=== PATIENT | female | born 1945 | race Caucasian/White ===

== ENCOUNTER 2017-05-24 10:00 | Outpatient (CLI) | payer MEDICARE, SELFPAY ==
[2017-05-24 11:20] VITALS: BMI 32.9
[2017-05-24 11:52] VITALS: BP 134/65; PULSE 94; RESP 18; TEMP 36.6; O2SAT 94
[2017-05-24 12:22] VITALS: BP 131/61; PULSE 92; RESP 20; O2SAT 95
[2017-05-24 12:52] VITALS: BP 130/66; PULSE 92; RESP 20; TEMP 36.4; O2SAT 95
[2017-05-24 13:15] VITALS: BP 134/62; PULSE 90; RESP 20; TEMP 36.5; O2SAT 94
[2017-05-24 18:03] VITALS: BMI 32.9
== END 2017-05-24 13:20 | disposition home or self-care (01) ==
LOC: INF 13:17
PROVIDERS: Visit Provider Internal Medicine
DX: D80.3 Selective deficiency of immunoglobulin G [IgG] subclasses (principal)
CPT/HCPCS: 96365; 96366; J1459

== ENCOUNTER 2017-06-06 03:56 | Observation (INO) | payer MEDICARE, SELFPAY ==
[2017-06-06] VITALS (8 sets, daily range): BP systolic 108–141; BP diastolic 59–88; PULSE 75–110; RESP 14–26; TEMP 36.8–37.4; O2SAT 91–98; BMI 36.6; BMI 33.3
[2017-06-06 04:41] LABS: Basophils % 0.2 % (0.1-2.0); Eosinophils # 0.2 K/mm3 (0.0-0.4); Eosinophils % 1.3 % (0.1-12.0); Hematocrit 33.2 % (37.0-47.0); Hemoglobin 10.7 g/dL (12.2-16.2); Lymphocytes # 1.2 K/mm3 (0.7-4.5); Mean Corpuscular HGB Conc 32.2 g/dL (31.8-35.4); Mean Corpuscular Hemoglobin 28.6 pg (27.0-31.2); Mean Corpuscular Volume 88.9 fl (81-99); Mean Platelet Volume 6.6 fl (7.4-10.4); Monocytes # 0.6 K/mm3 (0.1-1.0); Monocytes % 4.2 % (1.7-9.3); Neutrophils # 11.3 K/mm3 (1.8-7.8); Neutrophils % 85.3 % (37.0-80.0); Platelet Count 180 K/mm3 (142-424); Red Blood Count 3.73 M/mm3 (4.20-5.40); Red Cell Distribution Width 14.2 % (11.5-17.5); White Blood Count 13.3 K/mm3 (4.8-10.8)
[2017-06-06 04:48] LABS: MANUAL DIFFERENTIAL MANUAL DIFFERENTIAL (MANUAL DIFF)
[2017-06-06 04:52] LABS: Alanine Aminotransferase 30 U/L (12-78); Albumin Level 3.3 gm/dL (3.4-5.0); Albumin/Globulin Ratio 0.9 (1.1-1.8); Alkaline Phosphatase 71 U/L (46-116); Anion Gap 5.4 mEq/L (5-15); Aspartate Amino Transferase 23 U/L (15-37); Bilirubin,Total 0.4 mg/dL (0.2-1.0); Blood Urea Nitrogen 15 mg/dL (7-18); Calcium 8.8 mg/dL (8.5-10.1); Carbon Dioxide 35 mmol/L (21.0-32.0); Chloride 99 mmol/L (98-107); Creatinine Clearance Estimated 75 mL/min (0-300); Creatinine,Serum 1.12 mg/dL (0.55-1.02); Estimated Glomerular Filt Rate 48 ml/min (>60); GFR (African American) 58 ML/MIN (>60); Globulin 3.6 gm/dl (1.3-3.2); Glucose 138 mg/dL (74-106); Potassium 3.4 mmoL/L (3.5-5.1); Sodium 136 mmol/L (136-145); Total Protein,Serum 6.9 gm/dL (6.4-8.2)
--- NOTE | 2017-06-06 05:25 | HMH.EDNVD ---
ED Disposition Clinical Impression: Gastroenteritis Disposition: Home, Self-Care Condition on Discharge: Good Instructions: DI for Diarrhea and Traveler's Diarrhea -- Adult Additional Instructions: fluids and see pcp for follow up Prescriptions: Ondansetron HCl [Zofran 4mg Tab] 4 mg PO TID #30 tab Referrals: Asad Ford MD [Primary Care Provider] - - Critical Care Critical Care Time: No Attestation: On 06/06/17, the high probability of a clinically significant, sudden or life threatening deterioration of the following system(s) required my full and direct attention, intervention and personal management. The time I documented below is in addition to time spent performing reported procedures but includes the following listed in this critical care notation. Medical Decision Making Vital Signs: 06/06/17 03:57 Temperature 99.4 F Temperature Source Oral Pulse Rate [Brachial] 110 H Respiratory Rate 26 H Blood Pressure [Right Arm] 131/88 Blood Pressure Mean [Right Arm] 102 Blood Pressure Source [Right Arm] Automatic Cuff Blood Pressure Position [Right Arm] Supine 02 Sat by Pulse Oximetry 91 L Oxygen Delivery Method Room Air - Lab Data Lab results reviewed: Yes: I reviewed the patient's lab results. Lab Results 06/06/17 04:25: WBC 13.3 H, RBC 3.73 L, Hgb 10.7 L, Hct 33.2 L, MCV 88.9, MCH 28.6, MCHC 32.2, RDW 14.2, Plt Count 180, MPV 6.6 L, Neut % (Auto) 85.3 H, Lymph % (Auto) 9.0 L, [place] % (Auto) 4.2, Eos % (Auto) 1.3, Baso % (Auto) 0.2, Neut # (Auto) 11.3 H, Lymph # (Auto) 1.2, [place] # (Auto) 0.6, Eos # (Auto) 0.2, Baso # (Auto) 0.0, Total Counted 100, Neutrophils % (Manual) 89 H, Lymphocytes % (Manual) 10, Monocytes % (Manual) 1 L, Platelet Estimate Normal, Anisocytosis 1+, Stomatocytes 1+ 06/06/17 04:25: Sodium 136, Potassium 3.4 L, Chloride 99, Carbon Dioxide 35 H, Anion Gap 5.4, BUN 15, Creatinine 1.12 H, Estimated Creat Clear 75, Estimated GFR 48 L, Est GFR ( Amer) 58 L, Glucose 138 H, Calcium 8.8, Total Bilirubin 0.4, AST 23, ALT 30, Alkaline Phosphatase 71, Total Protein 6.9, Albumin 3.3 L, Globulin 3.6 H, Albumin/Globulin Ratio 0.9 L 06/06/17 04:25: Influenza Type A Ag Negative, Influenza Type B Ag Negative 06/06/17 04:25: Amylase 23 L, Lipase 62 L Result diagrams: 06/06/17 04:25 06/06/17 04:25 Orders (Tests/Meds): ED MEDICATIONS Discontinued Medications Generic Name Dose Route Start Last Admin Trade Name Freq PRN Reason Stop Dose Admin Lactated Ringer's 0 ml 06/06/17 04:07 06/06/17 04:10 Lactated Ringer's 1000 Ml Bag IV 06/06/17 04:08 1,000 ml BOLUS ONE Administration Ondansetron HCl 4 mg 06/06/17 04:07 06/06/17 04:10 Zofran 4mg/2ml Vial IV 06/06/17 04:08 4 mg ONCE ONE Administration ORDERS Category Date Time Status CT abdomen pelvis wo con Stat Cat Scan 06/06/17 05:27 Taken Diarrhea Panel, PCR Stat Lab 06/06/17 05:28 Ordered - CT Data CT Scan: Abdomen, Pelvis Time Received: 06:[address] Reviewed: Yes: I have viewed the radiologist's interpretation Preliminary Findings: Normal/NAD - Physician Consults Physician Consulted: colleen Reason -: Pt condition - Julius Inquiry Pt receiving controlled substance: No Nausea/Vomiting/Diarrhea HPI - General Chief complaint: Nausea/Vomiting/Diarrhea Stated complaint: VOMITING Time Seen by Provider: 06/06/17 05:25 Mode of Arrival: EMS Source of Information: Patient, Relative, Medical Record Limitations: No Limitations Description of Symptoms (Recalled from ER Triage Doc. by RN): NOT FEELING WELL ALL DAY, N/V/D SINCE LAST NIGHT - History of Present Illness HPI Narrative: over the last day with vomiting and diarrhea with abd pain MD complaint: nausea, vomiting, diarrhea, abdominal pain Onset (ago): day(s) Location of pain: diffuse Severity: moderate Associated symptoms: loss of appetite - Related Data Home Medications Medication Instructions Recorded Confirmed Acetaminophen
--- NOTE | 2017-06-06 05:27 | CT_ITS ---
CT abdomen pelvis wo con CLINICAL INDICATION: Nausea and vomiting with abdominal pain ITS.REASON: abd pain ORDERING PHYSICIAN: Luis Hanson MD PATIENT AGE: 71 years COMPARISON: 08/06/2012 TECHNIQUE: Axial images obtained with sagittal and coronal reformats. PROCEDURE: Oral Contrast: None IV Contrast: None . FINDINGS: There is volume loss/consolidation medial aspect of the of the right middle lobe with air bronchograms. Mild atelectatic changes are present in the left lung base. The liver, spleen, adrenal glands, and pancreas are unremarkable. Gallbladder not visualized likely due to surgical removal. Please correlate with patient's history. No obstructing renal or ureteral calculi. Exophytic isodensity projects off the left kidney at 17 mm consistent with a renal cyst. Artifact is present from degenerated or of a neurostimulator device in the right lower quadrant. No intestinal obstruction or free air. There is diverticulosis of the sigmoid colon but no evidence of diverticulitis. No evidence of appendicitis. There are degenerative changes in the lumbar spine with lumbar scoliosis convex left. There is mild wedging of L3 chest developed since 08/08/2012. Prior laminectomy at L3-L4. Chronic posttraumatic changes left inferior pubic ramus. IMPRESSION: 1. No acute abdominal or pelvic finding. 2. Colonic diverticulosis without diverticulitis. 3. Right middle lobe consolidation/volume loss. 4. Mild wedging of L3 which is developed since the older exam of 08/08/2012
--- NOTE | 2017-06-06 05:28 | ED_ITS ---
ED Disposition Clinical Impression: Gastroenteritis Disposition: Home, Self-Care Condition on Discharge: Good Instructions: DI for Diarrhea and Traveler's Diarrhea -- Adult Additional Instructions: fluids and see pcp for follow up Prescriptions: Ondansetron HCl [Zofran 4mg Tab] 4 mg PO TID #30 tab Referrals: Asad Ford MD [Primary Care Provider] - - Critical Care Critical Care Time: No Attestation: On 06/06/17, the high probability of a clinically significant, sudden or life threatening deterioration of the following system(s) required my full and direct attention, intervention and personal management. The time I documented below is in addition to time spent performing reported procedures but includes the following listed in this critical care notation. Medical Decision Making Vital Signs: 06/06/17 03:57 Temperature 99.4 F Temperature Source Oral Pulse Rate [Brachial] 110 H Respiratory Rate 26 H Blood Pressure [Right Arm] 131/88 Blood Pressure Mean [Right Arm] 102 Blood Pressure Source [Right Arm] Automatic Cuff Blood Pressure Position [Right Arm] Supine 02 Sat by Pulse Oximetry 91 L Oxygen Delivery Method Room Air - Lab Data Lab results reviewed: Yes: I reviewed the patient's lab results. Lab Results 06/06/17 04:25: WBC 13.3 H, RBC 3.73 L, Hgb 10.7 L, Hct 33.2 L, MCV 88.9, MCH 28.6, MCHC 32.2, RDW 14.2, Plt Count 180, MPV 6.6 L, Neut % (Auto) 85.3 H, Lymph % (Auto) 9.0 L, [place] % (Auto) 4.2, Eos % (Auto) 1.3, Baso % (Auto) 0.2, Neut # (Auto) 11.3 H, Lymph # (Auto) 1.2, [place] # (Auto) 0.6, Eos # (Auto) 0.2, Baso # (Auto) 0.0, Total Counted 100, Neutrophils % (Manual) 89 H, Lymphocytes % (Manual) 10, Monocytes % (Manual) 1 L, Platelet Estimate Normal, Anisocytosis 1+, Stomatocytes 1+ 06/06/17 04:25: Sodium 136, Potassium 3.4 L, Chloride 99, Carbon Dioxide 35 H, Anion Gap 5.4, BUN 15, Creatinine 1.12 H, Estimated Creat Clear 75, Estimated GFR 48 L, Est GFR ( Amer) 58 L, Glucose 138 H, Calcium 8.8, Total Bilirubin 0.4, AST 23, ALT 30, Alkaline Phosphatase 71, Total Protein 6.9, Albumin 3.3 L, Globulin 3.6 H, Albumin/Globulin Ratio 0.9 L 06/06/17 04:25: Influenza Type A Ag Negative, Influenza Type B Ag Negative 06/06/17 04:25: Amylase 23 L, Lipase 62 L Result diagrams: 06/06/17 04:25 06/06/17 04:25 Orders (Tests/Meds): ED MEDICATIONS Discontinued Medications Generic Name Dose Route Start Last Admin Trade Name Freq PRN Reason Stop Dose Admin Lactated Ringer's 0 ml 06/06/17 04:07 06/06/17 04:10 Lactated Ringer's 1000 Ml Bag IV 06/06/17 04:08 1,000 ml BOLUS ONE Administration Ondansetron HCl 4 mg 06/06/17 04:07 06/06/17 04:10 Zofran 4mg/2ml Vial IV 06/06/17 04:08 4 mg ONCE ONE Administration ORDERS Category Date Time Status CT abdomen pelvis wo con Stat Cat Scan 06/06/17 05:27 Taken Diarrhea Panel, PCR Stat Lab 06/06/17 05:28 Ordered - CT Data CT Scan: Abdomen, Pelvis Time Received: 06:[address] Reviewed: Yes: I have viewed the radiologist's interpretation Preliminary Findings: Normal/NAD - Physician Consults Physician Consulted: colleen Reason -: Pt condition - Julius Inquiry Pt receiving controlled substance: No Nausea/Vomiting/Diarrhea HPI - General Chief complaint: Nausea/Vomiting/Diarrhea Stated complaint: VOMITING
--- NOTE | 2017-06-06 05:45 | PC.NURSE ---
pt to ct
[2017-06-06 05:55] LABS: Amylase 23 U/L (25-125); Anisocytosis 1+; Lipase 62 u/L (73-393); Lymphocytes % 10 % (10-50); Monocytes % 1 % (2-9); Neutrophils % 89 % (42-76); Platelet Estimate Normal; Stomatocytes 1+; Total Cells Counted 100
--- NOTE | 2017-06-06 07:11 | PC.NURSE ---
dr dillon called dr macias, he preferred to treat pt on out pt basis.
--- NOTE | 2017-06-06 09:58 | HMH.HP ---
*Admission Date: 06/06/17 *Chief complaint: vomiting and diarrhea *History of present illness: 71 year old female with chronic lung disease presented to the ER early this a.m. with vomiting and diarrhea that began yesterday. Patient does not recall how many times she vomited or had diarrhea. Vomiting had resolved by the time she came to the ER. Patient was given IV LR and CT scan was performed of abdomen which was unremarkable. While in ED patient developed a fever and decision was made to admit for IV fluids. [facility] History I have reviewed the patient's past medical history: Yes Medical History: Reports:: Chronic Obstructive Pulmonary Disease (COPD), Gastroesophageal Reflux Disease, Hypertension, MRSA Other Medical History: Reports: Anemia Comment: Chronic Pain, Ig G subclass deficiency - *Social History Alcohol Intake: never - Psychiatric History Expresses thoughts of harming self/others: None Suicide Plan Description: No Plan Pschychiatric History:: Reports:: Anxiety *Family Hx:: Non-contributory Review of Systems - Review of Systems Review of systems:: pertinent systems reviewed and negative unless documented below see HPI - *Neurologic Denies tingling/numbness/burning sensations, Denies seizure-like activity Meds Home Medications Medication Instructions Recorded Confirmed Type Acetaminophen 325 mg PO NEEDED PRN 05/24/17 06/06/17 History Albuterol Sulfate [Albuterol 2.5 mg IH Q6HP PRN 05/24/17 06/06/17 History 0.083% 2.5mg/3mL neb] Albuterol Sulfate [Proair Hfa 2 puffs IH Q4HP PRN 05/24/17 06/06/17 History 90mcg/puff Inh] Aspirin [Aspirin 81mg EC Tab] 81 mg PO DAILY 05/24/17 06/06/17 History Azelastine/Fluticasone [Dymista 1 spray NS BID 05/24/17 06/06/17 History Nasal [place]] Bacillus Coagulans [Probiotic] 1 each PO DAILY 05/24/17 06/06/17 History Budesonide/Formoterol Fumarate 2 puffs IH BID 05/24/17 06/06/17 History [Symbicort 160-4.5 Mcg Inhaler] Bumetanide 2 mg PO DAILYP PRN 05/24/17 06/06/17 History Buspirone HCl [Buspar 10mg tablet] 10 mg PO BIDP PRN 05/24/17 06/06/17 History Cholecalciferol (Vitamin D3) 400 unit PO DAILY 05/24/17 06/06/17 History [Vitamin D3] Ferrous Sulfate [Iron] 325 mg PO DAILY 05/24/17 06/06/17 History Hydrocortisone 2.5 mg PO HS 05/24/17 06/06/17 History Hydrocortisone 5 mg PO DAILY 05/24/17 06/06/17 History Ipratropium [place] [Atrovent 0.5 mg IH BIDP PRN 05/24/17 06/06/17 History 0.5mg/2.5mL neb] Loratadine [Claritin] 10 mg PO DAILY 05/24/17 06/06/17 History Mirabegron [Myrbetriq] 50 mg PO DAILY 05/24/17 06/06/17 History Montelukast Sodium [Montelukast 10 mg PO HS 05/24/17 06/06/17 History 10mg Tab] Multivitamin [Multivitamins] 1 each PO DAILY 05/24/17 06/06/17 History Ondansetron HCl [Ondansetron 8mg 8 mg PO Q8HP PRN 05/24/17 06/06/17 History Tab] Pantoprazole Sodium [Protonix 40mg 40 mg PO DAILY 05/24/17 06/06/17 History tablet] [place] HCl [Salagen] 7.5 mg PO TIDP PRN 05/24/17 06/06/17 History Polyethylene Glycol 3350 [Miralax 17 gm PO DAILYP PRN 05/24/17 06/06/17 History 17gm Packet] Pregabalin [Pregabalin 25mg 25 mg PO BID 05/24/17 06/06/17 History Capsule] Sertraline HCl [Zoloft] 100 mg PO DAILY 05/24/17 06/06/17 History Tiotropium [place] [Spiriva 1 puff INHALATION DAILY 05/24/17 06/06/17 History 18mcg/puff inhaler] Trazodone HCl 100 mg PO HS 05/24/17 06/06/17 History Allergies Allergy/AdvReac Type Severity Reaction Status Date / Time hydrocodone [HYDROCODONE] Allergy Severe dizziness, Verified 06/06/17 04:32 n/v metoclopramide [From REGLAN] Allergy Severe Swelling Verified 06/06/17 04:32 of Lip/Tongue/Throat codeine [CODEINE] Allergy Intermediate dizziness. Verified 06/06/17 04:32 n/v Sulfa (Sulfonamide AdvReac Mild n/v Verified 06/06/17 04:32 Antibiotics) [SULFA (SULFONAMIDE ANTIBIOTICS)] Exam Vital signs and Labs for Last 24 Hours: Temp Pulse Resp BP
--- NOTE | 2017-06-06 10:01 | P.HP_ITS ---
*Admission Date: 06/06/17 *Chief complaint: vomiting and diarrhea *History of present illness: 71 year old female with chronic lung disease presented to the ER early this a.m. with vomiting and diarrhea that began yesterday. Patient does not recall how many times she vomited or had diarrhea. Vomiting had resolved by the time she came to the ER. Patient was given IV LR and CT scan was performed of abdomen which was unremarkable. While in ED patient developed a fever and decision was made to admit for IV fluids. [facility] History I have reviewed the patient's past medical history: Yes Medical History: Reports:: Chronic Obstructive Pulmonary Disease (COPD), Gastroesophageal Reflux Disease, Hypertension, MRSA Other Medical History: Reports: Anemia Comment: Chronic Pain, Ig G subclass deficiency - *Social History Alcohol Intake: never - Psychiatric History Expresses thoughts of harming self/others: None Suicide Plan Description: No Plan Pschychiatric History:: Reports:: Anxiety *Family Hx:: Non-contributory Review of Systems - Review of Systems Review of systems:: pertinent systems reviewed and negative unless documented below see HPI - *Neurologic Denies tingling/numbness/burning sensations, Denies seizure-like activity Meds Home Medications Medication Instructions Recorded Confirmed Type Acetaminophen 325 mg PO NEEDED PRN 05/24/17 06/06/17 History Albuterol Sulfate [Albuterol 2.5 mg IH Q6HP PRN 05/24/17 06/06/17 History 0.083% 2.5mg/3mL neb] Albuterol Sulfate [Proair Hfa 2 puffs IH Q4HP PRN 05/24/17 06/06/17 History 90mcg/puff Inh] Aspirin [Aspirin 81mg EC Tab] 81 mg PO DAILY 05/24/17 06/06/17 History Azelastine/Fluticasone [Dymista 1 spray NS BID 05/24/17 06/06/17 History Nasal [place]] Bacillus Coagulans [Probiotic] 1 each PO DAILY 05/24/17 06/06/17 History Budesonide/Formoterol Fumarate 2 puffs IH BID 05/24/17 06/06/17 History [Symbicort 160-4.5 Mcg Inhaler] Bumetanide 2 mg PO DAILYP PRN 05/24/17 06/06/17 History Buspirone HCl [Buspar 10mg tablet] 10 mg PO BIDP PRN 05/24/17 06/06/17 History Cholecalciferol (Vitamin D3) 400 unit PO DAILY 05/24/17 06/06/17 History [Vitamin D3] Ferrous Sulfate [Iron] 325 mg PO DAILY 05/24/17 06/06/17 History Hydrocortisone 2.5 mg PO HS 05/24/17 06/06/17 History Hydrocortisone 5 mg PO DAILY 05/24/17 06/06/17 History Ipratropium [place] [Atrovent 0.5 mg IH BIDP PRN 05/24/17 06/06/17 History 0.5mg/2.5mL neb] Loratadine [Claritin] 10 mg PO DAILY 05/24/17 06/06/17 History Mirabegron [Myrbetriq] 50 mg PO DAILY 05/24/17 06/06/17 History Montelukast Sodium [Montelukast 10 mg PO HS 05/24/17 06/06/17 History 10mg Tab] Multivitamin [Multivitamins] 1 each PO DAILY 05/24/17 06/06/17 History Ondansetron HCl [Ondansetron 8mg 8 mg PO Q8HP PRN 05/24/17 06/06/17 History Tab] Pantoprazole Sodium [Protonix 40mg 40 mg PO DAILY 05/24/17 06/06/17 History tablet] [place]oc[place] HCl [Salagen] 7.5 mg PO TIDP PRN 05/24/17 06/06/17 History Polyethylene Glycol 3350 [Miralax 17 gm PO DAILYP PRN 05/24/17 06/06/17 History 17gm Packet] Pregabalin [Pregabalin 25mg 25 mg PO BID 05/24/17 06/06/17 History Capsule] Sertraline HCl [Zoloft] 100 mg PO DAILY 05/24/17 06/06/17 History Tiotropium [place] [Spiriva 1 puff INHALATION DAILY 05/24/17 06/06/17 History 18mcg/puff inhaler] Trazodone HCl 100 mg PO HS
--- NOTE | 2017-06-06 10:24 | HMH.PHAVTE ---
[facility] Pharmacy VTE Monitoring - Patient Demographics Admission date: 06/06/17 Report Date: 06/06/17 Time: 10:24 Allergies/Adverse Reactions: hydrocodone [HYDROCODONE] Allergy (Severe, Verified 06/06/17 04:32) dizziness, n/v metoclopramide [From REGLAN] Allergy (Severe, Verified 06/06/17 04:32) Swelling of Lip/Tongue/Throat codeine [CODEINE] Allergy (Intermediate, Verified 06/06/17 04:32) dizziness. n/v Sulfa (Sulfonamide Antibiotics) [SULFA (SULFONAMIDE ANTIBIOTICS)] Adverse Reaction (Mild, Verified 06/06/17 04:32) n/v Height: 1.65 m Weight: 99.79 kg Patient Problems: Current Active Problems Gastroenteritis (Acute) - VTE Risk Labs: VTE Related Lab Results Hgb 10.7 g/dL (12.2-16.2) L 06/06/17 04:25 Hct 33.2 % (37.0-47.0) L 06/06/17 04:25 Plt Count 180 K/mm3 (142-424) 06/06/17 04:25 BUN 15 mg/dL (7-18) 06/06/17 04:25 Creatinine 1.12 mg/dL (0.55-1.02) H 06/06/17 04:25 Estimated Creat Clear 75 mL/min (0-300) 06/06/17 04:25 Clinical Trial Participant: No - Prophylaxis Types of VTE Prophylaxis: TEDS Knee High
--- NOTE | 2017-06-06 12:08 | PC.NURSE ---
Family Elizabeth Alford notified that pt wants some personal belongings from home. Also asked to bring medications in for pt since she is in observation status. Education that if [facility] gave pt the medication from our supply due to insurance reasons she would be charged. Family states they will bring them in.
[2017-06-06 19:40] LABS: Adenovirus F 40/41, stool Not Detected (NotDetected); Astrovirus Not Detected (NotDetected); Campylobacter Not Detected (NotDetected); Clostridium Difficile A/B, PCR Not Detected (NotDetected); Cryptosporidium Not Detected (NotDetected); Cyclospora Cayetanesis Not Detected (NotDetected); Entamoeba histolytica Not Detected (NotDetected); Enteroaggregative E coli Not Detected (NotDetected); Enteropathogenic E coli Not Detected (NotDetected); Enterotoxigenic E coli Not Detected (NotDetected); Giardia lamblia Not Detected (NotDetected); Norovirus Not Detected (NotDetected); Plesimonas Shigalloides, PCR Not Detected (NotDetected); Rotavirus A Not Detected (NotDetected); Salmonella, PCR Not Detected (NotDetected); Sapovirus Not Detected (NotDetected); Shiga-like toxin E coli Not Detected (NotDetected); Shigella Enterovasive E coli Not Detected (NotDetected); Vibrio Cholerae Not Detected (NotDetected); Vibrio, PCR Not Detected (NotDetected); Yersinia Entercolitica, PCR Not Detected (NotDetected)
[2017-06-07 04:00] VITALS: BP 153/50; PULSE 85; RESP 20; TEMP 36.5; O2SAT 97
[2017-06-07 06:39] VITALS: PULSE 78; PULSE 79; O2SAT 96
[2017-06-07 07:00] LABS: Basophils % 0.3 % (0.1-2.0); Eosinophils # 0.1 K/mm3 (0.0-0.4); Hematocrit 29.2 % (37.0-47.0); Hemoglobin 9.4 g/dL (12.2-16.2); Lymphocytes # 0.8 K/mm3 (0.7-4.5); Lymphocytes % 15.3 K/mm3 (10-50); Mean Corpuscular HGB Conc 32.3 g/dL (31.8-35.4); Mean Corpuscular Hemoglobin 28.9 pg (27.0-31.2); Mean Corpuscular Volume 89.5 fl (81-99); Mean Platelet Volume 6.9 fl (7.4-10.4); Monocytes # 0.3 K/mm3 (0.1-1.0); Monocytes % 5.3 % (1.7-9.3); Neutrophils # 4.3 K/mm3 (1.8-7.8); Neutrophils % 78.1 % (37.0-80.0); Platelet Count 168 K/mm3 (142-424); Red Blood Count 3.27 M/mm3 (4.20-5.40); Red Cell Distribution Width 14.1 % (11.5-17.5); White Blood Count 5.5 K/mm3 (4.8-10.8)
--- NOTE | 2017-06-07 07:16 | HMH.DCSUM ---
General - General Admission date: 06/06/17 Discharge date: 06/07/17 HPI HPI: 71 year old female with chronic lung disease presented to the ER early this a.m. with vomiting and diarrhea that began yesterday. Patient does not recall how many times she vomited or had diarrhea. Vomiting had resolved by the time she came to the ER. Patient was given IV LR and CT scan was performed of abdomen which was unremarkable. While in ED patient developed a fever and decision was made to admit for IV fluids. Objective Vital signs: Temp Pulse Resp BP Pulse Ox 98.8 F 79 20 141/59 96 06/06/17 20:00 06/07/17 06:39 06/06/17 20:00 06/06/17 20:00 06/07/17 06:39 Hospital Course Hospital Course: Patient was admitted for observation and started on lactated Ringer's at 125 mL's per hour. She only had one additional loose stool which was tested with diarrhea PCR panel and was negative for any infection. On the evening of admission she was placed on full liquid diet which she tolerated without nausea or vomiting. When patient remained asymptomatic over the rest of her admission decision was made to discharge her to home. Patient will follow-up in the office on as-needed basis. Results Labs on day of discharge: Labs from last 24 hours 06/07/17 06/06/17 06:26 19:38 WBC 5.5 D RBC 3.27 L Hgb 9.4 L Hct 29.2 L MCV 89.5 MCH 28.9 MCHC 32.3 RDW 14.1 Plt Count 168 MPV 6.9 L Neut % (Auto) 78.1 Lymph % (Auto) 15.3 [place] % (Auto) 5.3 Eos % (Auto) 1.0 Baso % (Auto) 0.3 Neut # (Auto) 4.3 Lymph # (Auto) 0.8 [place] # (Auto) 0.3 Eos # (Auto) 0.1 Baso # (Auto) 0.0 Stl Aeromonas (PCR) Not detected Stl C. cayetanensis PCR Not detected Stool Rotavirus (PCR) Not detected Stl Adenov F 40/41 PCR Not detected Stool Astrovirus (PCR) Not detected Stool Cryptosporidium PCR Not detected Stl E.coli Shiga Tox PCR Not detected Stool E coli O157 PCR Not detected Stl Enterotoxigenic E PCR Not detected Stool EPEC (PCR) Not detected Stool EAEC (PCR) Not detected Stl E. histolytica PCR Not detected Stool Giardia Lamblia PCR Not detected Stool Sapovirus (PCR) Not detected Stl P. shigelloides PCR Not detected Stl Shigella/EIEC PCR Not detected St Y.enterocolitica PCR Not detected Stool Vibrio (PCR) Not detected Stl Vibrio cholerae PCR Not detected Stl Norovirus GI/GII PCR Not detected Campylobacter (PCR) Not detected C. difficile (PCR) Not detected Salmonella (PCR) Not detected DS: Diagnosis - Discharge Diagnosis (1) Gastroenteritis Status: Acute Meds Home Medications Medication Instructions Recorded Confirmed Type Acetaminophen 325 mg PO NEEDED PRN 05/24/17 06/06/17 History Albuterol Sulfate [Albuterol 2.5 mg IH Q6HP PRN 05/24/17 06/06/17 History 0.083% 2.5mg/3mL neb] Albuterol Sulfate [Proair Hfa 2 puffs IH Q4HP PRN 05/24/17 06/06/17 History 90mcg/puff Inh] Aspirin [Aspirin 81mg EC Tab] 81 mg PO DAILY 05/24/17 06/06/17 History Azelastine/Fluticasone [Dymista 1 spray NS BID 05/24/17 06/06/17 History Nasal [place]] Bacillus Coagulans [Probiotic] 1 each PO DAILY 05/24/17 06/06/17 History Budesonide/Formoterol Fumarate 2 puffs IH BID 05/24/17 06/06/17 History [Symbicort 160-4.5 Mcg Inhaler] Bumetanide 2 mg PO DAILYP PRN 05/24/17 06/06/17 History Buspirone HCl [Buspar 10mg tablet] 10 mg PO BIDP PRN 05/24/17 06/06/17 History Cholecalciferol (Vitamin D3) 400 unit PO DAILY 05/24/17 06/06/17 History [Vitamin D3] Ferrous Sulfate [Iron] 325 mg PO DAILY 05/24/17 06/06/17 History Hydrocortisone 2.5 mg PO HS 05/24/17 06/06/17 History Hydrocortisone 5 mg PO DAILY 05/24/17 06/06/17 History Ipratropium [place] [Atrovent 0.5 mg IH BIDP PRN 05/24/17 06/06/17 History 0.5mg/2.5mL neb] Loratadine [Claritin] 10 mg PO DAILY 05/24/17 06/06/17 History Mirabegron [Myrbetriq] 50 mg PO DAILY 05/24/17 06/06/17 History [place]
[2017-06-07 08:00] VITALS: O2SAT 95; O2SAT 98
== END 2017-06-07 11:17 | disposition home or self-care (01) ==
LOC: ER 07:19 → 2ND 11:23
PROVIDERS: Admitting Provider Family Medicine; Emergency Provider Emergency Medicine; PCP Family Medicine; Visit Provider Family Medicine
DX: K52.9 Noninfective gastroenteritis and colitis, unspecified (principal); J44.9 Chronic obstructive pulmonary disease, unspecified; K21.9 Gastro-esophageal reflux disease without esophagitis; I10 Essential (primary) hypertension; F41.9 Anxiety disorder, unspecified; Z79.82 Long term (current) use of aspirin; Z79.899 Other long term (current) drug therapy; Z88.5 Allergy status to narcotic agent; Z88.2 Allergy status to sulfonamides; Z88.8 Allergy status to other drugs, medicaments and biological substances; Z86.14 Personal history of Methicillin resistant Staphylococcus aureus infection
CPT/HCPCS: 36415; 74176; 80053; 82150; 83690; 85007; 85025; 87275; 87276; 87507; 94640; 94760; 94761; 96366; 99283; 99284; G0378; J2405

== ENCOUNTER 2017-07-18 10:30 | Outpatient (CLI) | payer MEDICARE, SELFPAY ==
[2017-07-18] VITALS (7 sets, daily range): BP systolic 108–114; BP diastolic 59–67; PULSE 84–90; RESP 20; TEMP 36.5; O2SAT 93–95
== END 2017-07-18 12:50 | disposition home or self-care (01) ==
LOC: INF 10:43
PROVIDERS: PCP Family Medicine; Visit Provider Internal Medicine
DX: D80.3 Selective deficiency of immunoglobulin G [IgG] subclasses (principal)
CPT/HCPCS: 96365; 96366; J1459; J1642

== ENCOUNTER 2017-08-23 10:15 | Outpatient (CLI) | payer MEDICARE, SELFPAY ==
[2017-08-23 10:55] VITALS: BP 147/88; PULSE 91; RESP 18; TEMP 36.6; O2SAT 96
[2017-08-23 11:25] VITALS: BP 123/61; PULSE 86; RESP 18; O2SAT 95
[2017-08-23 11:55] VITALS: BP 125/62; PULSE 81; RESP 18; O2SAT 95
[2017-08-23 12:25] VITALS: BP 123/62; PULSE 89; RESP 18; O2SAT 96
[2017-08-23 12:40] VITALS: BP 121/67; PULSE 69; RESP 18; O2SAT 96
== END 2017-08-23 12:45 | disposition home or self-care (01) ==
LOC: INF 12:08
PROVIDERS: PCP Family Medicine; Visit Provider Internal Medicine
DX: D80.3 Selective deficiency of immunoglobulin G [IgG] subclasses (principal)
CPT/HCPCS: 96365; 96366; J1459

== ENCOUNTER 2017-09-19 10:30 | Outpatient (CLI) | payer MEDICARE, SELFPAY ==
[2017-09-19 10:50] VITALS: BP 137/70; PULSE 86; RESP 18; TEMP 36.7; O2SAT 94
[2017-09-19 11:20] VITALS: BP 130/67; PULSE 84; RESP 18; O2SAT 96
[2017-09-19 11:50] VITALS: BP 131/69; PULSE 86; RESP 18; O2SAT 95
[2017-09-19 12:35] VITALS: BP 138/65; PULSE 83; RESP 18; O2SAT 94
== END 2017-09-19 12:40 | disposition home or self-care (01) ==
LOC: INF 11:05
PROVIDERS: PCP Family Medicine; Visit Provider Internal Medicine
DX: D80.3 Selective deficiency of immunoglobulin G [IgG] subclasses (principal)
CPT/HCPCS: 96365; 96366; J1459

== ENCOUNTER → 2017-10-15 13:00 | Outpatient (POV) | payer MEDICARE, SELFPAY | PROVIDERS: Visit Provider Internal Medicine | DX: Z00.00 Encounter for general adult medical examination without abnormal findings (principal) ==

== ENCOUNTER 2017-10-18 10:30 | Outpatient (CLI) | payer MEDICARE, SELFPAY ==
[2017-10-18 11:10] VITALS: BP 128/77; PULSE 68; RESP 20; TEMP 36.9; O2SAT 94
[2017-10-18 12:10] VITALS: BP 118/84; PULSE 68; RESP 20; TEMP 36.9; O2SAT 94
[2017-10-18 12:40] VITALS: BP 116/70; PULSE 66; RESP 20; TEMP 37.1; O2SAT 94
[2017-10-18 13:10] VITALS: BP 126/70; PULSE 68; RESP 20; TEMP 36.9; O2SAT 94
== END 2017-10-18 13:15 | disposition home or self-care (01) ==
LOC: INF 10:39
PROVIDERS: Visit Provider Internal Medicine
DX: D80.3 Selective deficiency of immunoglobulin G [IgG] subclasses (principal)
CPT/HCPCS: 96365; 96366; J1459

== ENCOUNTER 2017-11-21 12:55 | Outpatient (CLI) | payer MEDICARE, SELFPAY ==
[2017-11-21 13:20] VITALS: BP 122/67; PULSE 69; RESP 20; TEMP 36.8; O2SAT 95
[2017-11-21 13:50] VITALS: BP 117/58; PULSE 70; RESP 20; O2SAT 96
[2017-11-21 14:20] VITALS: BP 121/64; PULSE 68; RESP 20; O2SAT 95
[2017-11-21 14:50] VITALS: BP 119/61; PULSE 65; RESP 20; O2SAT 96
[2017-11-21 15:30] VITALS: BP 120/67; PULSE 67; RESP 20; O2SAT 96
== END 2017-11-21 15:30 | disposition home or self-care (01) ==
LOC: INF 13:24
PROVIDERS: Visit Provider Internal Medicine
DX: D80.3 Selective deficiency of immunoglobulin G [IgG] subclasses (principal)
CPT/HCPCS: 96365; 96366; J1459

== ENCOUNTER 2017-12-20 10:30 | Outpatient (CLI) | payer MEDICARE, SELFPAY ==
[2017-12-20] VITALS (8 sets, daily range): BP systolic 103–126; BP diastolic 46–79; PULSE 89–96; RESP 18; O2SAT 96
== END 2017-12-20 13:25 | disposition home or self-care (01) ==
LOC: INF 10:43
PROVIDERS: Visit Provider Internal Medicine
DX: D80.3 Selective deficiency of immunoglobulin G [IgG] subclasses (principal)
CPT/HCPCS: 96365; 96366; J1459

== ENCOUNTER 2018-01-16 13:59 | Outpatient (CLI) | payer MEDICARE, SELFPAY ==
[2018-01-16] VITALS (8 sets, daily range): BP systolic 115–133; BP diastolic 55–79; PULSE 85–100; RESP 18–20; TEMP 36.6–36.8; O2SAT 96–97
== END 2018-01-16 16:43 | disposition home or self-care (01) ==
LOC: INF 13:59
PROVIDERS: Visit Provider Internal Medicine
DX: D80.3 Selective deficiency of immunoglobulin G [IgG] subclasses (principal)
CPT/HCPCS: 96365; 96366; J1459

== ENCOUNTER 2018-02-19 09:55 | Outpatient (CLI) | payer MEDICARE, SELFPAY ==
[2018-02-19 10:40] VITALS: BP 110/52; PULSE 97; RESP 18; TEMP 36.8; O2SAT 96
[2018-02-19 11:10] VITALS: BP 108/55; PULSE 94; RESP 16
[2018-02-19 11:40] VITALS: BP 103/58; PULSE 91; RESP 18
[2018-02-19 12:10] VITALS: BP 116/62; PULSE 87; RESP 16
[2018-02-19 12:20] VITALS: BP 131/73; PULSE 98; RESP 18
== END 2018-02-19 12:45 | disposition home or self-care (01) ==
LOC: INF 09:58
PROVIDERS: PCP Family Medicine; Visit Provider Internal Medicine
DX: D80.3 Selective deficiency of immunoglobulin G [IgG] subclasses (principal)
CPT/HCPCS: 96365; J1459

== ENCOUNTER → 2018-02-25 13:11 | Outpatient (POV) | payer MEDICARE, SELFPAY | PROVIDERS: Visit Provider Internal Medicine | DX: Z00.00 Encounter for general adult medical examination without abnormal findings (principal) ==

== ENCOUNTER 2018-03-19 10:41 | Outpatient (CLI) | payer MEDICARE, SELFPAY ==
[2018-03-19 10:55] VITALS: BP 120/77; PULSE 100; RESP 20; TEMP 36.6; O2SAT 96
[2018-03-19 11:25] VITALS: BP 118/69; PULSE 101; RESP 20; O2SAT 96
[2018-03-19 11:55] VITALS: BP 121/64; PULSE 94; RESP 20; O2SAT 95
[2018-03-19 12:15] VITALS: BP 124/65; PULSE 89; RESP 20; O2SAT 96
== END 2018-03-19 12:15 | disposition home or self-care (01) ==
LOC: INF 10:41
PROVIDERS: Visit Provider Internal Medicine
DX: D80.3 Selective deficiency of immunoglobulin G [IgG] subclasses (principal)
CPT/HCPCS: 96365; J1459

== ENCOUNTER 2018-04-17 09:53 | Outpatient (CLI) | payer MEDICARE, SELFPAY ==
[2018-04-17 10:25] VITALS: BP 131/53; PULSE 103; RESP 18; TEMP 36.6; O2SAT 98
[2018-04-17 10:55] VITALS: BP 129/58; PULSE 99; RESP 18; O2SAT 97
[2018-04-17 11:25] VITALS: BP 133/59; PULSE 100; RESP 18; O2SAT 97
[2018-04-17 11:55] VITALS: BP 127/54; PULSE 101; RESP 18; O2SAT 96
[2018-04-17 12:10] VITALS: BP 130/59; PULSE 99; RESP 18; O2SAT 97
== END 2018-04-17 12:15 | disposition home or self-care (01) ==
LOC: INF 09:53
PROVIDERS: Visit Provider Internal Medicine
DX: D80.3 Selective deficiency of immunoglobulin G [IgG] subclasses (principal)
CPT/HCPCS: 96365; J1459

== ENCOUNTER 2018-05-15 10:18 | Outpatient (CLI) | payer MEDICARE, SELFPAY ==
[2018-05-15 11:30] VITALS: BP 119/58; PULSE 84; RESP 18; TEMP 36.4; O2SAT 98
[2018-05-15 12:00] VITALS: BP 122/59; PULSE 88; RESP 18; O2SAT 97
[2018-05-15 12:30] VITALS: BP 120/60; PULSE 81; RESP 18; O2SAT 97
[2018-05-15 13:00] VITALS: BP 118/56; PULSE 82; RESP 18; O2SAT 96
[2018-05-15 13:30] VITALS: BP 116/52; PULSE 84; RESP 18; O2SAT 97
== END 2018-05-15 13:30 | disposition home or self-care (01) ==
LOC: INF 10:18
PROVIDERS: Visit Provider Internal Medicine
DX: D80.3 Selective deficiency of immunoglobulin G [IgG] subclasses (principal)
CPT/HCPCS: 96365; J1459

== ENCOUNTER 2018-05-21 11:45 | Inpatient (IN) ==
[2018-05-21 12:52] LABS: Basophils % 0.2 % (0.1-2.0); Eosinophils # 0.1 K/mm3 (0.0-0.4); Eosinophils % 1.4 % (0.1-12.0); Hematocrit 30.9 % (37.0-47.0); Hemoglobin 10.1 g/dL (12.2-16.2); Lymphocytes # 0.6 K/mm3 (0.7-4.5); Lymphocytes % 8.7 % (10-50); Mean Corpuscular HGB Conc 32.5 g/dL (31.8-35.4); Mean Corpuscular Hemoglobin 29.3 pg (27.0-31.2); Mean Corpuscular Volume 90.2 fl (81-99); Mean Platelet Volume 6.8 fl (7.4-10.4); Monocytes # 0.4 K/mm3 (0.1-1.0); Neutrophils # 5.7 K/mm3 (1.8-7.8); Neutrophils % 83.7 % (37.0-80.0); Platelet Count 158 K/mm3 (142-424); Red Blood Count 3.43 M/mm3 (4.20-5.40); Red Cell Distribution Width 13.7 % (11.5-17.5); White Blood Count 6.9 K/mm3 (4.8-10.8)
[2018-05-21 12:54] LABS: Anion Gap 9.9 mEq/L (5-15); Calcium 8.4 mg/dL (8.5-10.1); Potassium 3.9 mmoL/L (3.5-5.1)
[2018-05-21 13:20] LABS: ABG Base Excess -0.5 mmol/L (-2.4-2.3); ABG HCO3 24.8 mmhg (22.0-26.0); ABG Oxygen Saturation 88 % (90-100); ABG PCO2 43.3 mmhg (35.0-45.0); ABG PH 7.38 mmol/L (7.35-7.45); ABG PO2 54.5 mmhg (80-100); ABG TCO2 26.1 mmhg (23-27)
[2018-05-21 13:21] LABS: Allen's Test ACCEPTABLE; Oxygen 3 LPM %
--- NOTE | 2018-05-21 14:09 | Pharmacy Consult Notes ---
[facility] Pharmacy VTE Monitoring - Patient Demographics Admission date: 05/21/18 Report Date: 05/21/18 Time: 14:09 Allergies/Adverse Reactions: Patient Allergies hydrocodone [HYDROCODONE] Allergy (Severe, Verified 03/30/18 01:49) dizziness, n/v metoclopramide [From REGLAN] Allergy (Severe, Verified 03/30/18 01:49) Swelling of Lip/Tongue/Throat codeine [CODEINE] Allergy (Intermediate, Verified 03/30/18 01:49) dizziness. n/v Sulfa (Sulfonamide Antibiotics) [SULFA (SULFONAMIDE ANTIBIOTICS)] Adverse Reaction (Mild, Verified 03/30/18 01:49) n/v Height: 1.65 m Weight: 88.025 kg - VTE Risk Labs: VTE Related Lab Results Hgb 10.1 g/dL (12.2-16.2) L 05/21/18 12:30 Hct 30.9 % (37.0-47.0) L 05/21/18 12:30 Plt Count 158 K/mm3 (142-424) 05/21/18 12:30 BUN 17 mg/dL (7-18) 05/21/18 12:30 Creatinine 1.27 mg/dL (0.55-1.02) H 05/21/18 12:30 Estimated Creat Clear 57 mL/min (50-200) 05/21/18 12:30 Was VTE Risk Assessment Performed: Yes VTE Score: 7 VTE Risk Level: Moderate Risk Clinical Trial Participant: No - Prophylaxis VTE Prophylaxis Ordered?: Yes Types of VTE Prophylaxis: TEDS Knee High
--- NOTE | 2018-05-21 14:24 | Pharmacy Consult Notes ---
- Pharmacy Consult Date: 05/21/18 Time: 14:18 Referring provider: DR. REID Reason for Consult:: VANCOMYCIN DOSING Allergies and ADEs:: Allergies Allergy/AdvReac Type Severity Reaction Status Date / Time hydrocodone [HYDROCODONE] Allergy Severe dizziness, Verified 03/30/18 01:49 n/v metoclopramide [From REGLAN] Allergy Severe Swelling Verified 03/30/18 01:49 of Lip/Tongue/Throat codeine [CODEINE] Allergy Intermediate dizziness. Verified 03/30/18 01:49 n/v Sulfa (Sulfonamide AdvReac Mild n/v Verified 03/30/18 01:49 Antibiotics) [SULFA (SULFONAMIDE ANTIBIOTICS)] Home Medications:: Home Medications Medication Instructions Recorded Confirmed Type Acetaminophen 325 mg PO NEEDED PRN 05/24/17 05/15/18 History Albuterol Sulfate [Albuterol 2.5 mg IH Q6HP PRN 05/24/17 05/15/18 History 0.083% 2.5mg/3mL neb] Albuterol Sulfate [Proair Hfa 2 puffs IH Q4HP PRN 05/24/17 05/15/18 History 90mcg/puff Inh] Aspirin [Aspirin 81mg EC Tab] 81 mg PO DAILY 05/24/17 05/15/18 History Azelastine/Fluticasone [Dymista 1 spray NS BID 05/24/17 05/15/18 History Nasal [place]] Bacillus Coagulans [Probiotic] 1 each PO DAILY 05/24/17 05/15/18 History Budesonide/Formoterol Fumarate 2 puffs IH BID 05/24/17 05/15/18 History [Symbicort 160-4.5 Mcg Inhaler] Bumetanide 2 mg PO DAILYP PRN 05/24/17 05/15/18 History Buspirone HCl [Buspar 10mg tablet] 10 mg PO BIDP PRN 05/24/17 05/15/18 History Cholecalciferol (Vitamin D3) 400 unit PO DAILY 05/24/17 05/15/18 History [Vitamin D3] Ferrous Sulfate [Iron] 325 mg PO DAILY 05/24/17 05/15/18 History Hydrocortisone 2.5 mg PO HS 05/24/17 05/15/18 History Hydrocortisone 5 mg PO DAILY 05/24/17 05/15/18 History Ipratropium [place] [Atrovent 0.5 mg IH BIDP PRN 05/24/17 05/15/18 History 0.5mg/2.5mL neb] Loratadine [Claritin] 10 mg PO DAILY 05/24/17 05/15/18 History Mirabegron [Myrbetriq] 50 mg PO DAILY 05/24/17 05/15/18 History Montelukast Sodium [Montelukast 10 mg PO HS 05/24/17 05/15/18 History 10mg Tab] Multivitamin [Multivitamins] 1 each PO DAILY 05/24/17 05/15/18 History Ondansetron HCl [Ondansetron 8mg 8 mg PO Q8HP PRN 05/24/17 05/15/18 History Tab] Pantoprazole Sodium [Protonix 40mg 40 mg PO DAILY 05/24/17 05/15/18 History tablet] Pilocarpine HCl [Salagen] 7.5 mg PO TIDP PRN 05/24/17 05/15/18 History Polyethylene Glycol 3350 [Miralax 17 gm PO DAILYP PRN 05/24/17 05/15/18 History 17gm Packet] Pregabalin [Pregabalin 25mg 25 mg PO BID 05/24/17 05/15/18 History Capsule] Sertraline HCl [Zoloft] 100 mg PO DAILY 05/24/17 05/15/18 History Tiotropium [place] [Spiriva 1 puff INHALATION DAILY 05/24/17 05/15/18 History 18mcg/puff inhaler] Trazodone HCl 100 mg PO HS 05/24/17 05/15/18 History Nitrofurantoin Monohyd/M-Cryst 100 mg PO BID 02/19/18 05/15/18 History [Macrobid 100 mg Capsule] Guaifenesin/Dextromethorphan 10 ml PO Q4HP PRN #200 liquid 03/30/18 05/15/18 Rx [Guaifenesin-Dm Solution] Doxycycline Hyclate [Doxycycline 100 mg PO Q12 04/17/18 05/15/18 History 100mg Capsule] Height: 1.65 m Weight: 88.025 kg Laboratory Results:: Laboratory Results - last 24 hr 05/21/18 12:29: Specimen Source L. radial, O2 % 3 lpm, ABG pH 7.38, ABG pCO2 43.3, ABG pO2 54.5 L, ABG HCO3 24.8, ABG Total CO2 26.1, ABG O2 Saturation 88 L, ABG Base Excess -0.5, Carlos Test Acceptable 05/21/18 12:30: WBC 6.9, RBC 3.43 L, Hgb 10.1 L, Hct 30.9 L, MCV 90.2, MCH 29.3, MCHC 32.5, RDW 13.7, Plt Count 158, MPV 6.8 L, Neut % (Auto) 83.7 H, Lymph % (Auto) 8.7 L, [place] % (Auto) 6.0, Eos % (Auto) 1.4, Baso % (Auto) 0.2, Neut # (Auto) 5.7, Lymph # (Auto) 0.6 L, [place] # (Auto) 0.4, Eos # (Auto) 0.1, Baso # (Auto) 0.0 05/21/18 12:30: Sodium 135 L, Potassium 3.9, Chloride 97 L, Carbon Dioxide 32, Anion Gap 9.9, BUN 17, Creatinine 1.27 H, Estimated Creat Clear 57, Estimated GFR 42 L, Est GFR ( Amer) 50 L, Glucose 107 H, Calcium 8.4 L Medical History: Reports:: Anxiety, Chronic Obstructive Pulmonary Disease (COPD), Gastroesophageal Reflux Disease(GERD), Hypertension Denies:: Cancer, Diabetes Mellitus Type 1, Diabetes Mellitus Type 2, MRSA Assessment and Plan - Assessment and plan all Dx Assessment and Plan for all problems:: BASED ON PATIENT FACTORS, RECOMMEND VANCOMYCIN 1500 MG IV Q24H. PHARMACY WILL FOLLOW DAILY AND ADJUST APPROPRIATE.
[2018-05-21 15:24] LABS: Coronavirus 229E Not Detected (NotDetected); Coronavirus NL63 Not Detected (NotDetected); Coronavirus OC43 Not Detected (NotDetected); Coronovirus HKU1,PCR Not Detected (NotDetected)
--- NOTE | 2018-05-22 07:13 | Progress Note ---
Internal Medicine - PN: Subj *Date: 05/22/18 *Time: 07:09 Interval history: Patient admitted yesterday afternoon with suspected pneumonia but turns out patient has RSV lower respiratory tract infection causing bronchiolitis and COPD exacerbation. This morning patient complains of shortness of breath. She received Ativan overnight for anxiety which did help alleviate some of her dyspnea. Nursing notes indicate patient believes she was hypoxic and when O2 sat was checked she was at 95%. Patient endorses a lot of chest congestion and feels like she cannot produce any large amounts of sputum. Exam Vital signs and Labs for Last 24 Hours: Temp Pulse Resp BP Pulse Ox 98.3 F 90 20 123/66 95 05/22/18 04:00 05/22/18 06:33 05/22/18 04:00 05/22/18 04:00 05/22/18 06:33 Laboratory Results - last 24 hr 05/21/18 12:29: Specimen Source L. radial, O2 % 3 lpm, ABG pH 7.38, ABG pCO2 43.3, ABG pO2 54.5 L, ABG HCO3 24.8, ABG Total CO2 26.1, ABG O2 Saturation 88 L, ABG Base Excess -0.5, Carlos Test Acceptable 05/21/18 12:30: WBC 6.9, RBC 3.43 L, Hgb 10.1 L, Hct 30.9 L, MCV 90.2, MCH 29.3, MCHC 32.5, RDW 13.7, Plt Count 158, MPV 6.8 L, Neut % (Auto) 83.7 H, Lymph % (Auto) 8.7 L, [place] % (Auto) 6.0, Eos % (Auto) 1.4, Baso % (Auto) 0.2, Neut # (Auto) 5.7, Lymph # (Auto) 0.6 L, [place] # (Auto) 0.4, Eos # (Auto) 0.1, Baso # (Auto) 0.0 05/21/18 12:30: Sodium 135 L, Potassium 3.9, Chloride 97 L, Carbon Dioxide 32, Anion Gap 9.9, BUN 17, Creatinine 1.27 H, Estimated Creat Clear 57, Estimated GFR 42 L, Est GFR ( Amer) 50 L, Glucose 107 H, Calcium 8.4 L 05/21/18 : Chlamy pneumoniae PCR Not detected, Adenovirus (PCR) Not detected, B. pertussis DNA (PCR) Not detected, Coronavirus OC43 (PCR) Not detected, Coronavirus HKU1 (PCR) Not detected, Coronavirus 229E (PCR) Not detected, Coronavirus NL63 (PCR) Not detected, Human Metapneumovir PCR Not detected, Influenza A (H1) PCR Not detected, Influ A (H1N1/09) PCR Not detected, Influenza A (H3) PCR Not detected, Influenza Type A (PCR) Not detected, Influenza Type B (PCR) Not detected, M. pneumoniae (PCR) Not detected, Parainfluenza 1 (PCR) Not detected, Parainfluenza 2 (PCR) Not detected, Parainfluenza 3 (PCR) Not detected , Parainfluenza 4 (PCR) Not detected, RSV (PCR) Detected A, Entero/Rhino (PCR) Not detected I & O for Last 24 hours: Intake & Output 05/19/18 05/20/18 05/21/18 05/22/18 11:59 11:59 11:59 11:59 Intake Total 240 / 240 Output Total 1250 / 1250 Balance -1010 / -1010 Weight 194 lb 5 oz Microbiology Reports for the Last 24 Hours: Microbiology 05/21/18 13:02 Sputum - Expectorated Sputum Gram Stain - Final Narrative: Patient appears anxious. She can be heard wheezing from several feet away. Oropharynx is dry. Neck is without lymphadenopathy. Lung exam reveals poor air movement. There are some faint expiratory wheezes heard in the upper lobes. Breath sounds are severely diminished in the lower lobe. Heart has a regular rate and rhythm Assessment and Plan (1) RSV bronchiolitis Current visit: Yes Status: Acute Category: Medical Code(s): J21.0 - Acute bronchiolitis due to respiratory syncytial virus (2) COPD exacerbation Current visit: Yes Status: Acute Category: Medical Code(s): J44.1 - Chronic obstructive pulmonary disease with (acute) exacerbation (3) Very severe chronic obstructive pulmonary disease Current visit: Yes Status: Acute Category: Medical Code(s): J44.9 - Chronic obstructive pulmonary disease, unspecified (4) Dependence on supplemental oxygen Current visit: Yes Status: Acute Category: Medical Code(s): Z99.81 - Dependence on supplemental oxygen - Assessment and plan all Dx Assessment and Plan for all problems:: 1. I did explain to the patient that recovery from her illness will take time and we will use steroids and breathing treatments along with mucolytic's to try to alleviate symptoms. 2. Out of bed to chair today 3. Ativan has been discontinued and I will give the patient a very low dose of alprazolam to aid with any anxiety symptoms
[2018-05-22 07:41] LABS: Basophils % 0.3 % (0.1-2.0); Eosinophils % 0.2 % (0.1-12.0); Hematocrit 32.8 % (37.0-47.0); Hemoglobin 10.6 g/dL (12.2-16.2); Lymphocytes # 0.5 K/mm3 (0.7-4.5); Lymphocytes % 11.9 % (10-50); Mean Corpuscular HGB Conc 32.4 g/dL (31.8-35.4); Mean Corpuscular Hemoglobin 29.8 pg (27.0-31.2); Mean Platelet Volume 6.5 fl (7.4-10.4); Monocytes # 0.1 K/mm3 (0.1-1.0); Monocytes % 3.4 % (1.7-9.3); Neutrophils # 3.6 K/mm3 (1.8-7.8); Neutrophils % 84.2 % (37.0-80.0); Platelet Count 179 K/mm3 (142-424); Red Blood Count 3.57 M/mm3 (4.20-5.40); Red Cell Distribution Width 13.8 % (11.5-17.5); White Blood Count 4.3 K/mm3 (4.8-10.8)
[2018-05-22 07:45] LABS: Calcium 8.5 mg/dL (8.5-10.1)
--- NOTE | 2018-05-23 07:12 | Progress Note ---
Internal Medicine - PN: Subj *Date: 05/23/18 *Time: 07:09 Interval history: Patient reports a good night but rough morning with complaints of nasal congestion and shortness of breath. States she's coughing up thick yellow sputum but smaller amounts than yesterday and the day before. Nursing reports oxygen saturation >/91% on 3L NC throughout the night. Exam Vital signs and Labs for Last 24 Hours: Temp Pulse Resp BP Pulse Ox 97.6 F 91 H 21 125/74 95 05/23/18 03:57 05/23/18 06:30 05/23/18 03:57 05/23/18 03:57 05/23/18 06:30 Laboratory Results - last 24 hr 05/22/18 07:20: WBC 4.3 L D, RBC 3.57 L, Hgb 10.6 L, Hct 32.8 L, MCV 92.0, MCH 29.8, MCHC 32.4, RDW 13.8, Plt Count 179, MPV 6.5 L, Neut % (Auto) 84.2 H, Lymph % (Auto) 11.9, [place] % (Auto) 3.4, Eos % (Auto) 0.2, Baso % (Auto) 0.3, Neut # (Auto) 3.6, Lymph # (Auto) 0.5 L, [place] # (Auto) 0.1, Eos # (Auto) 0.0, Baso # (Auto) 0.0 05/22/18 07:20: Sodium 134 L, Potassium 4.0, Chloride 97 L, Carbon Dioxide 31, Anion Gap 10.0, BUN 17, Creatinine 1.13 H, Estimated Creat Clear 64, Estimated GFR 48 L, Est GFR ( Amer) 58 L, Glucose 125 H, Calcium 8.5 I & O for Last 24 hours: Intake & Output 05/20/18 05/21/18 05/22/18 05/23/18 23:59 23:59 23:59 23:59 Intake Total 240 / 240 1560 / 1560 Output Total 600 / 600 2800 / 2800 200 / 200 Balance -360 / -360 -1240 / -1240 -200 / -200 Weight 194 lb 1 oz 194 lb 5 oz 192 lb 3 oz Microbiology Reports for the Last 24 Hours: Microbiology 05/21/18 13:02 Sputum - Expectorated Sputum Gram Stain - Final 05/21/18 13:02 Sputum - Expectorated Sputum Sputum Culture - Preliminary - Constitutional mild distress, obese, chronically ill appearing - *Routine HEENT Exam Head: Present: normocephalic - *Routine Respiratory Exam Present: accessory muscle use Comments: expiratory wheezes throughout lung dinero - *Routine Cardiovascular Exam Present: RRR, Normal S1, Normal S2. Absent: irregular rhythm - *Routine Abdominal Exam Present: soft, normoactive bowel sounds - *Routine Extremities Exam Absent: cyanosis, edema - *Routine Neurological Exam Present: alert, oriented X3 - Routine Psychiatric Exam Comments: anxious Assessment and Plan (1) RSV bronchiolitis Current visit: Yes Status: Acute Category: Medical Code(s): J21.0 - Acute bronchiolitis due to respiratory syncytial virus (2) COPD exacerbation Current visit: Yes Status: Acute Category: Medical Code(s): J44.1 - Chronic obstructive pulmonary disease with (acute) exacerbation (3) Very severe chronic obstructive pulmonary disease Current visit: Yes Status: Acute Category: Medical Code(s): J44.9 - Chronic obstructive pulmonary disease, unspecified (4) Dependence on supplemental oxygen Current visit: Yes Status: Acute Category: Medical Code(s): Z99.81 - Dependence on supplemental oxygen - Assessment and plan all Dx Assessment and Plan for all problems:: Will order diet to regular per patients request, patient to take home med grayson odom Q6h, percussion vest, physical therapy eval/treat, and send symbicort to [facility] also per patient request. Continue to monitor, encourage movement around room and up to chair please.
[2018-05-23 07:37] LABS: Basophils % 0.1 % (0.1-2.0); Eosinophils % 0.2 % (0.1-12.0); Hematocrit 33.2 % (37.0-47.0); Hemoglobin 10.8 g/dL (12.2-16.2); Lymphocytes # 0.6 K/mm3 (0.7-4.5); Lymphocytes % 11.8 % (10-50); Mean Corpuscular HGB Conc 32.4 g/dL (31.8-35.4); Mean Corpuscular Hemoglobin 29.8 pg (27.0-31.2); Mean Corpuscular Volume 91.8 fl (81-99); Mean Platelet Volume 6.7 fl (7.4-10.4); Monocytes # 0.2 K/mm3 (0.1-1.0); Monocytes % 3.3 % (1.7-9.3); Neutrophils # 4.5 K/mm3 (1.8-7.8); Neutrophils % 84.7 % (37.0-80.0); Platelet Count 175 K/mm3 (142-424); Red Blood Count 3.62 M/mm3 (4.20-5.40); Red Cell Distribution Width 13.8 % (11.5-17.5); White Blood Count 5.3 K/mm3 (4.8-10.8)
[2018-05-23 07:42] LABS: Anion Gap 11.8 mEq/L (5-15); Calcium 8.6 mg/dL (8.5-10.1); Potassium 3.8 mmoL/L (3.5-5.1)
--- NOTE | 2018-05-24 07:45 | Progress Note ---
Internal Medicine - PN: Subj *Date: 05/24/18 *Time: 07:42 Interval history: Patient did well overnight. She had one episode of shortness of breath associated with some anxiety which was successfully treated with some p.o. Xanax. This morning she is quite wheezy upon awakening. Her sputum culture has shown no growth. She continues to produce thick whitish sputum with her cough Exam Vital signs and Labs for Last 24 Hours: Temp Pulse Resp BP Pulse Ox 97.9 F 83 18 124/67 93 L 05/24/18 04:00 05/24/18 04:00 05/24/18 04:00 05/24/18 04:00 05/24/18 04:00 Laboratory Results - last 24 hr 05/23/18 07:25: Sodium 133 L, Potassium 3.8, Chloride 95 L, Carbon Dioxide 30, Anion Gap 11.8, BUN 27 H D, Creatinine 1.35 H, Estimated Creat Clear 53, Estimated GFR 39 L, Est GFR ( Amer) 47 L, Glucose 154 H, Calcium 8.6 I & O for Last 24 hours: Intake & Output 05/21/18 05/22/18 05/23/18 05/24/18 11:59 11:59 11:59 11:59 Intake Total 600 / 600 1740 / 1740 840 / 840 Output Total 1250 / 1250 2350 / 2350 Balance -650 / -650 -610 / -610 840 / 840 Weight 194 lb 5 oz 192 lb 3 oz 199 lb Microbiology Reports for the Last 24 Hours: Microbiology 05/21/18 14:14 Blood Blood Culture - Preliminary NO GROWTH AFTER 48 HOURS 05/21/18 13:20 Blood Blood Culture - Preliminary NO GROWTH AFTER 48 HOURS 05/21/18 13:02 Sputum - Expectorated Sputum Gram Stain - Final 05/21/18 13:02 Sputum - Expectorated Sputum Sputum Culture - Final Normal Respiratory Analia Narrative: 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 Lungs have poor aeration with congested sounds and expiratory wheeze. Heart has a regular rate and rhythm. Assessment and Plan (1) RSV bronchiolitis Current visit: Yes Status: Acute Category: Medical Code(s): J21.0 - Acute bronchiolitis due to respiratory syncytial virus (2) COPD exacerbation Current visit: Yes Status: Acute Category: Medical Code(s): J44.1 - Chronic obstructive pulmonary disease with (acute) exacerbation (3) Very severe chronic obstructive pulmonary disease Current visit: Yes Status: Acute Category: Medical Code(s): J44.9 - Chronic obstructive pulmonary disease, unspecified (4) Dependence on supplemental oxygen Current visit: Yes Status: Acute Category: Medical Code(s): Z99.81 - Dependence on supplemental oxygen - Assessment and plan all Dx Assessment and Plan for all problems:: Patient is stable. We will attempt some Mucomyst treatment today to see if that helps with sputum expectoration. Continue steroids. Duo nebs will be 4 times daily with every 4 as needed. Patient's urine and creatinine him slightly and I will hold her Bumex for a day
--- NOTE | 2018-05-25 07:50 | Progress Note ---
Internal Medicine - PN: Subj *Date: 05/25/18 *Time: 07:47 Interval history: Patient has no new complaints this morning but she continues to voice her worry about how slowly she is improving. She feels like of all of her illnesses that have led to hospitalization over the last many years that this seems to be the worst and she is having the most difficult time getting over this. She does feel like the inhaled Mucomyst did help with sputum clearance. She also felt like the chest PT was beneficial to sputum clearance. She feels some anxiety from the steroids. Exam Vital signs and Labs for Last 24 Hours: Temp Pulse Resp BP Pulse Ox 98.0 F 80 22 163/76 H 92 L 05/25/18 04:56 05/25/18 05:13 05/25/18 04:56 05/25/18 04:56 05/25/18 05:13 I & O for Last 24 hours: Intake & Output 05/22/18 05/23/18 05/24/18 05/25/18 11:59 11:59 11:59 11:59 Intake Total 600 / 600 1740 / 1740 1320 / 1320 360 / 360 Output Total 1250 / 1250 2350 / 2350 300 / 300 400 / 400 Balance -650 / -650 -610 / -610 1020 / 1020 -40 / -40 Weight 194 lb 5 oz 192 lb 3 oz 199 lb 191 lb 1 oz Narrative: She is sitting up in bed and appears well, awake, alert. She can still be heard audibly wheezing just standing at bedside. Oropharynx reveals some thrush. Lungs have better aeration today than yesterday but still diffuse expiratory wheezes both anteriorly and posteriorly Assessment and Plan (1) RSV bronchiolitis Current visit: Yes Status: Acute Category: Medical Code(s): J21.0 - Acute bronchiolitis due to respiratory syncytial virus (2) COPD exacerbation Current visit: Yes Status: Acute Category: Medical Code(s): J44.1 - Chronic obstructive pulmonary disease with (acute) exacerbation (3) Very severe chronic obstructive pulmonary disease Current visit: Yes Status: Acute Category: Medical Code(s): J44.9 - Chronic obstructive pulmonary disease, unspecified (4) Dependence on supplemental oxygen Current visit: Yes Status: Acute Category: Medical Code(s): Z99.81 - Dependence on supplemental oxygen - Assessment and plan all Dx Assessment and Plan for all problems:: 1. Use Mucomyst nebs 3 times per day as long as patient tolerates. Continue chest PT 2. Decrease Lyrica to a nighttime dose only per patient request 3. Start nystatin 4. Still awaiting notification of precertification process for long-term facility placement
--- NOTE | 2018-05-26 07:10 | Progress Note ---
Internal Medicine - PN: Subj *Date: 05/26/18 *Time: 07:07 Interval history: Patient still complains of cough and chest. Using Mucomyst neb 3 times a day did improve sputum clearance. She has not had any fevers or chills patient was out of bed to chair yesterday. She gets quite dyspneic with light activity Exam Vital signs and Labs for Last 24 Hours: Temp Pulse Resp BP Pulse Ox 97.4 F L 86 22 160/95 H 94 L 05/26/18 04:00 05/26/18 06:02 05/26/18 04:00 05/26/18 04:00 05/26/18 06:02 I & O for Last 24 hours: Intake & Output 05/23/18 05/24/18 05/25/18 05/26/18 11:59 11:59 11:59 11:59 Intake Total 1740 / 1740 1320 / 1320 960 / 960 1080 / 1080 Output Total 2350 / 2350 300 / 300 400 / 400 Balance -610 / -610 1020 / 1020 560 / 560 1080 / 1080 Weight 192 lb 3 oz 199 lb 191 lb 1 oz 199 lb 9 oz Narrative: Patient is up in bed. She is tired. Lungs have congested breath sounds with right expiratory wheezes. With cough rhonchi and congestion will improve. She still has instant expiratory wheezes. There are no focal rales. Assessment and Plan (1) RSV bronchiolitis Current visit: Yes Status: Acute Category: Medical Code(s): J21.0 - Acute bronchiolitis due to respiratory syncytial virus (2) COPD exacerbation Current visit: Yes Status: Acute Category: Medical Code(s): J44.1 - Chronic obstructive pulmonary disease with (acute) exacerbation (3) Very severe chronic obstructive pulmonary disease Current visit: Yes Status: Acute Category: Medical Code(s): J44.9 - Chronic obstructive pulmonary disease, unspecified (4) Dependence on supplemental oxygen Current visit: Yes Status: Acute Category: Medical Code(s): Z99.81 - Dependence on supplemental oxygen - Assessment and plan all Dx Assessment and Plan for all problems:: Continue current care. I believe patient is very slowly improving and because of her underlying very severe COPD anticipate recovery take weeks. She remains quite weak and dyspneic with even light exertion. We are waiting to hear on precertification of [facility] facility stay. Should that be approved patient will be discharged today.
--- NOTE | 2018-05-26 07:14 | Discharge Summary ---
General - General Admission date:: 05/21/18 Discharge date: 05/26/18 HPI HPI: 9-year-old female presented to the office with increasing cough and congestion with shortness of breath 72 hours. Patient developed Tums on a weekend and had contacted the on-call physician where she was prescribed steroids and Levaquin. This later she arrived office. In the office she was in mild distress. She had increased respiratory rate with O2 sat 70s despite use of her oxygen via nasal cannula. It went that she had a pneumonia that had failed outpatient treatment and decision was made admit the patient for IV antibiotics and steroid. Hospital Course Hospital Course: Patient was admitted and workup was begun that included a chest x-ray, baseline labs, upper respiratory panel. Findings revealed RSV on upper respiratory panel. Chest x-ray did not show any acute or new infiltrates. Patient had been given some antibiotics admission but these discontinued and patient was continued on Solu-Medrol 60 mg every 8 hours, duo nebs every 4 hours with as needed treat as well. Patient's exam on admission was consistent rhonchi and wheezes throughout all lung dinero. Patient has underlying very severe COPD which did comfort her stay. Initially patient felt quite dyspneic but within 24 hours her severe shortness of breath seem to improve. Her lungs were very tight on examination and within 24 hours did show improvement in aeration. As her hospitalization prolonged other modalities to aid with sputum variance were added including Mucomyst neb 3 times a day and chest physiotherapy via the percussion vest. Patient felt like both of these modalities did aid somewhat with thinning of respiratory secretions and sputum production. However because of the patient's underlying severe COPD recovery was quite slow patient was quite weak and even light activities such as going from the bed to the bedside commode would cause dyspnea. Because of patient's underlying severe COPD and illness that will likely take weeks to recover from a discussion about going to a penitentiary facility was had with the patient. She was agreeable to this. Insurance precertification was required for stay at a penitentiary facility. Once that was obtained patient was discharged to [facility]. Mental status: Average Rehab potential: Good Prognosis: Good Objective Vital signs: Temp Pulse Resp BP Pulse Ox 97.4 F L 86 22 160/95 H 94 L 05/26/18 04:00 05/26/18 06:02 05/26/18 04:00 05/26/18 04:00 05/26/18 06:02 Results Labs on day of discharge: Preliminary micro results at discharge 05/21/18 14:14 Blood Culture - Preliminary Blood NO GROWTH AFTER 48 HOURS 05/21/18 13:20 Blood Culture - Preliminary Blood NO GROWTH AFTER 48 HOURS DS: Diagnosis - Discharge Diagnosis (1) RSV bronchiolitis Status: Acute (2) COPD exacerbation Status: Acute (3) Very severe chronic obstructive pulmonary disease Status: Acute (4) Dependence on supplemental oxygen Status: Acute Discharge Plan - Patient Discharge Instructions ACTIVITY: Continue current activity DIET: continue same diet Patient Instructions: DI for Chronic Obstructive Pulmonary Disease, DI for Pneumonia -- Adult, DI for Respiratory Syncytial Virus -- Adults - Follow up Plan Disposition: [facility] ([facility] Home Medications: Home Medications Medication Instructions Recorded Confirmed Type RX: Albuterol Sulfate [Albuterol 2.5 mg IH Q6HP PRN 05/24/17 05/21/18 History 0.083% 2.5mg/3mL neb] RX: Albuterol Sulfate [Proair Hfa 2 puffs IH Q4HP PRN 05/24/17 05/21/18 History 90mcg/puff Inh] RX: Aspirin [Aspirin 81mg EC 81 mg PO DAILY 05/24/17 05/21/18 History Tab] RX: Azelastine/Fluticasone 1 spray NS BID 05/24/17 05/21/18 History [Dymista Nasal [place]] RX: Bacillus Coagulans [Probiotic] 1 each PO DAILY 05/24/17 05/21/18 History RX: Budesonide/Formoterol Fumarate 2 puffs IH BID 05/24/17 05/21/18 History [Symbicort 160-4.5 Mcg Inhaler] RX: Bumetanide 2 mg PO DAILY 05/24/17 05/21/18 History RX: Buspirone HCl [Buspar 10mg 10 mg PO BID 05/24/17 05/21/18 History tablet] RX: Cholecalciferol (Vitamin D3) 400 unit PO DAILY 05/24/17 05/21/18 History [Vitamin D3] RX: Ferrous Sulfate [Iron] 325 mg PO DAILY 05/24/17 05/21/18 History RX: Hydrocortisone 2.5 mg PO HS 05/24/17 05/21/18 History RX: Hydrocortisone 5 mg PO DAILY 05/24/17 05/21/18 History RX: Ipratropium [place] [Atrovent 0.5 mg IH BIDP PRN 05/24/17 05/21/18 History 0.5mg/2.5mL neb] RX: Loratadine [Claritin] 10 mg PO DAILY 05/24/17 05/21/18 History RX: Mirabegron [Myrbetriq] 50 mg PO DAILY 05/24/17 05/21/18 History RX: Montelukast Sodium 10 mg PO HS 05/24/17 05/21/18 History [Montelukast 10mg Tab] RX: Multivitamin [Multivitamins] 1 each PO DAILY 05/24/17 05/21/18 History RX: Pantoprazole Sodium [Protonix 40 mg PO DAILY 05/24/17 05/21/18 History 40mg tablet] RX: Pilocarpine HCl [Salagen] 7.5 mg PO TIDP PRN 05/24/17 05/21/18 History RX: Polyethylene Glycol 3350 17 gm PO DAILYP PRN 05/24/17 05/21/18 History [Miralax 17gm Packet] RX: Sertraline HCl [Zoloft] 100 mg PO DAILY 05/24/17 05/21/18 History RX: Tiotropium [place] [Spiriva 1 puff INHALATION DAILY 05/24/17 05/21/18 History 18mcg/puff inhaler] RX: Guaifenesin/Dextromethorphan 10 ml PO Q4HP PRN #200 liquid 03/30/18 05/21/18 Rx [Guaifenesin-Dm Solution] RX: Potassium Chloride [Micro-K 20 meq PO DAILY 05/21/18 05/21/18 History 10mEq cap] RX: Roflumilast [Daliresp] 500 mcg PO DAILY 05/21/18 05/21/18 History RX: Acetaminophen [Acetaminophen 325 mg PO Q6HP PRN 05/22/18 05/22/18 History 325mg tab] RX: Ondansetron [Ondansetron Odt 8 mg PO Q8HP PRN 05/22/18 05/22/18 History 8mg Tab] RX: Trazodone HCl 100 mg PO HS 05/22/18 05/22/18 History RX: Acetylcysteine [Mucomyst 20% 1 ml INHALATION TIDRT #60 vial 05/26/18 Rx 4mL vial] RX: Pregabalin [Lyrica 150mg Cap] 150 mg PO HS #30 cap 05/26/18 Rx Prescriptions/Medication Reconciliation: New RX: Pregabalin [Lyrica 150mg Cap] 150 mg PO HS #30 cap RX: Acetylcysteine [Mucomyst 20% 4mL vial] 1 ml INHALATION TIDRT #60 vial Continue RX: Montelukast Sodium [Montelukast 10mg Tab] 10 mg PO HS RX: Albuterol Sulfate [Proair Hfa 90mcg/puff Inh] 2 puffs IH Q4HP PRN PRN Reason: Shortness Of Breath Or Wheezing RX: Tiotropium [place] [Spiriva 18mcg/puff inhaler] 1 puff INHALATION DAILY RX: Sertraline HCl [Zoloft] 100 mg PO DAILY RX: Polyethylene Glycol 3350 [Miralax 17gm Packet] 17 gm PO DAILYP PRN PRN Reason: Constipation RX: Pantoprazole Sodium [Protonix 40mg tablet] 40 mg PO DAILY RX: Multivitamin [Multivitamins] 1 each PO DAILY RX: Mirabegron [Myrbetriq] 50 mg PO DAILY RX: Loratadine [Claritin] 10 mg PO DAILY RX: Ipratropium [place] [Atrovent 0.5mg/2.5mL neb] 0.5 mg IH BIDP PRN PRN Reason: Shortness Of Breath Or Wheezing RX: Hydrocortisone 5 mg PO DAILY RX: Hydrocortisone 2.5 mg PO HS RX: Ferrous Sulfate [Iron] 325 mg PO DAILY RX: Buspirone HCl [Buspar 10mg tablet] 10 mg PO BID RX: Bumetanide 2 mg PO DAILY RX: Budesonide/Formoterol Fumarate [Symbicort 160-4.5 Mcg Inhaler] 2 puffs IH BID RX: Bacillus Coagulans [Probiotic] 1 each PO DAILY RX: Azelastine/Fluticasone [Dymista Nasal [place]] 1 spray NS BID RX: Albuterol Sulfate [Albuterol 0.083% 2.5mg/3mL neb] 2.5 mg IH Q6HP PRN PRN Reason: Shortness Of Breath Or Wheezing RX: Potassium Chloride [Micro-K 10mEq cap] 20 meq PO DAILY RX: Trazodone HCl 100 mg PO HS RX: Acetaminophen [Acetaminophen 325mg tab] 325 mg PO Q6HP PRN PRN Reason: As Needed For Fever Or Pain RX: Ondansetron [Ondansetron Odt 8mg Tab] 8 mg PO Q8HP PRN PRN Reason: Nausea RX: Aspirin [Aspirin 81mg EC Tab] 81 mg PO DAILY RX: Pilocarpine HCl [Salagen] 7.5 mg PO TIDP PRN PRN Reason: DRY MOUTH RX: Cholecalciferol (Vitamin D3) [Vitamin D3] 400 unit PO DAILY RX: Guaifenesin/Dextromethorphan [Guaifenesin-Dm Solution] 10 ml PO Q4HP PRN #200 liquid PRN Reason: Cough RX: Roflumilast [Daliresp] 500 mcg PO DAILY Discontinued Nitrofurantoin Monohyd/M-Cryst [Macrobid 100 mg Capsule] 100 mg PO BID Doxycycline Hyclate [Doxycycline 100mg Capsule] 100 mg PO Q12
== END 2018-05-26 16:01 | DRG 202 ==
LOC: 2ND 11:56
PROVIDERS: ADMIT Family Medicine; ATTEND Family Medicine
CPT/HCPCS: 36415; 71010; 71045; 80048; 82803; 85025; 87040; 87070; 87205; 87486; 87581; 87633; 87798; 93005; 94640; 94667; 94668; 94761; 97110; 97162; 97165; 97530; J1956; J2405; J3370

== ENCOUNTER 2018-06-10 10:53 | Outpatient (CLI) | payer MEDICARE, SELFPAY ==
[2018-06-10 11:38] VITALS: BP 121/76; PULSE 90; RESP 18; TEMP 36.9; O2SAT 95
[2018-06-10 12:08] VITALS: BP 119/72; PULSE 89; RESP 18; O2SAT 94
[2018-06-10 12:38] VITALS: BP 124/74; PULSE 91; RESP 18; O2SAT 95
[2018-06-10 13:08] VITALS: BP 118/71; PULSE 88; RESP 18; O2SAT 94
[2018-06-10 13:10] VITALS: BMI 80.6
[2018-06-10 13:35] VITALS: BP 120/72; PULSE 86; RESP 18; O2SAT 94
[2018-06-10 14:10] LABS: Basophils % 0.4 % (0.1-2.0); Eosinophils # 0.2 K/mm3 (0.0-0.4); Eosinophils % 3.6 % (0.1-12.0); Hematocrit 26.1 % (37.0-47.0); Hemoglobin 8.4 g/dL (12.2-16.2); Lymphocytes # 1.5 K/mm3 (0.7-4.5); Lymphocytes % 28.2 % (10-50); Mean Corpuscular HGB Conc 32.2 g/dL (31.8-35.4); Mean Corpuscular Hemoglobin 29.6 pg (27.0-31.2); Mean Corpuscular Volume 91.8 fl (81-99); Mean Platelet Volume 6.4 fl (7.4-10.4); Monocytes # 0.2 K/mm3 (0.1-1.0); Monocytes % 4.4 % (1.7-9.3); Neutrophils # 3.4 K/mm3 (1.8-7.8); Neutrophils % 63.3 % (37.0-80.0); Platelet Count 253 K/mm3 (142-424); Red Blood Count 2.85 M/mm3 (4.20-5.40); Red Cell Distribution Width 14.4 % (11.5-17.5); White Blood Count 5.4 K/mm3 (4.8-10.8)
[2018-06-10 14:19] LABS: Anion Gap 7.1 mEq/L (5-15); Carbon Dioxide 35 mmol/L (21.0-32.0); Chloride 101 mmol/L (98-107); Potassium 4.1 mmoL/L (3.5-5.1); Sodium 139 mmol/L (136-145)
[2018-06-10 14:20] LABS: Blood Urea Nitrogen 19 mg/dL (7-18); Calcium 8.6 mg/dL (8.5-10.1); Creatinine Clearance Estimated 34 mL/min (50-200); Estimated Glomerular Filt Rate 37 ml/min (>60); GFR (African American) 45 ML/MIN (>60); Glucose 113 mg/dL (74-106); Iron 35 ug/dl (28-170)
== END 2018-06-10 13:45 | disposition home or self-care (01) ==
LOC: INF 10:53
PROVIDERS: Family Medicine; Visit Provider Internal Medicine
DX: J44.9 Chronic obstructive pulmonary disease, unspecified (principal); D50.8 Other iron deficiency anemias; D80.3 Selective deficiency of immunoglobulin G [IgG] subclasses; E87.6 Hypokalemia
CPT/HCPCS: 80048; 83540; 85025; 96365; 96366; J1459; J1642

== ENCOUNTER → 2018-07-15 10:51 | Outpatient (POV) | payer MEDICARE, SELFPAY | PROVIDERS: Visit Provider Internal Medicine | DX: Z00.00 Encounter for general adult medical examination without abnormal findings (principal) ==

== ENCOUNTER 2018-07-15 12:17 | Outpatient (CLI) | payer MEDICARE, SELFPAY ==
[2018-07-15 12:17] VITALS: BMI 31.8
[2018-07-15 12:50] VITALS: BP 137/64; PULSE 98; RESP 20; TEMP 36.7; O2SAT 98
[2018-07-15 13:20] VITALS: BP 129/68; PULSE 94; RESP 20; O2SAT 97
[2018-07-15 13:50] VITALS: BP 131/69; PULSE 95; RESP 20; O2SAT 98
[2018-07-15 14:20] VITALS: BP 136/65; PULSE 91; RESP 20; O2SAT 97
[2018-07-15 14:40] VITALS: BP 132/67; PULSE 94; RESP 20; O2SAT 97
[2018-07-16 07:24] LABS: Immunoglobulin A, Qn 361 mg/dL (87-352); Immunoglobulin G, Qn 1022 mg/dL (700-1600)
[2018-07-16 08:11] LABS: Immunoglobulin M, Qn 68 mg/dL (26-217)
[2018-07-18 16:19] LABS: IgG, Subclass 1 725 mg/dL (248-810); IgG, Subclass 2 190 mg/dL (130-555); IgG, Subclass 3 37 mg/dL (15-102); Immunoglobulin G, Qn 1028 mg/dL (700-1600)
[2018-07-18 17:39] LABS: IgG, Subclass 4 15 mg/dL (2-96)
== END 2018-07-15 14:40 | disposition home or self-care (01) ==
PROVIDERS: Visit Provider Internal Medicine
DX: D80.3 Selective deficiency of immunoglobulin G [IgG] subclasses (principal); J44.1 Chronic obstructive pulmonary disease with (acute) exacerbation
CPT/HCPCS: 82784; 82787; 87070; 87077; 87184; 87205; 96365; J1459; J1642

== ENCOUNTER 2018-08-22 10:35 | Outpatient (CLI) | payer MEDICARE, SELFPAY ==
[2018-08-22] VITALS (10 sets, daily range): BP systolic 104–140; BP diastolic 43–63; PULSE 88–97; RESP 16–18; O2SAT 96
== END 2018-08-22 13:50 | disposition home or self-care (01) ==
LOC: INF 10:41
PROVIDERS: Visit Provider Internal Medicine
DX: D80.3 Selective deficiency of immunoglobulin G [IgG] subclasses (principal)
CPT/HCPCS: 96365; 96366; J1459

== ENCOUNTER → 2018-09-04 18:15 | Outpatient (CLI) | payer MEDICARE, SELFPAY ==
--- NOTE | 2018-09-04 18:30 | XR_ITS ---
XR shoulder RT min 2V HISTORY: ITS.REASON: RIGHT SHOULDER PAIN ORDERING PHYSICIAN: Nicole Moreno APRN PATIENT AGE: 72 years Comparison: 06/01/2013 FINDINGS: There is an old ununited distal clavicle fracture. There is 12 mm superior displacement and mild distraction of the medial fracture fragment. Mild osteoarthritic changes at the glenohumeral joint with subacromial stenosis. Right IJ vas catheter present. No fracture or dislocation. 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
== END ==
PROVIDERS: PCP Family Medicine; Visit Provider Nurse Practitioner Family
DX: M25.511 Pain in right shoulder (principal)
CPT/HCPCS: 73030

== ENCOUNTER 2018-09-14 11:17 | Inpatient (IN) ==
--- NOTE | 2018-09-14 11:58 | Emergency Department Note ---
ED Disposition Clinical Impression: COPD exacerbation, Left lower lobe consolidation, Anxiety Disposition: Still a Patient Condition on Discharge: Fair Referrals: Provider,Referral, [Primary Care Provider] - - Critical Care Critical Care Time: No Attestation: On , the high probability of a clinically significant, sudden or life threatening deterioration of the following system(s) required my full and direct attention, intervention and personal management. The time I documented below is in addition to time spent performing reported procedures but includes the following listed in this critical care notation. Medical Decision Making - Medical Records Medical records reviewed: Yes: I reviewed the patient's medical records. - Julius Inquiry Pt receiving controlled substance: No Julius was queried for this patient: No Vital Signs: 09/14/18 11:27 09/14/18 11:35 09/14/18 12:00 Temperature 98.3 F Temperature Source Oral Pulse Rate 73 Pulse Rate [Right Radial] 72 75 Respiratory Rate 24 Blood Pressure [Right Arm] 109/61 L 128/74 Blood Pressure Mean [Right Arm] 77 92 Blood Pressure Source [Right Arm] Automatic Cuff Automatic Cuff Blood Pressure Position [Right Arm] Sitting Sitting 02 Sat by Pulse Oximetry 97 99 99 Oxygen Delivery Method Nasal Cannula Nasal Cannula Nasal Cannula Oxygen Flow Rate (LPM) 3 3 3 09/14/18 12:30 09/14/18 12:32 09/14/18 12:59 Temperature Temperature Source Pulse Rate Pulse Rate [Right Radial] 73 71 Respiratory Rate 24 Blood Pressure [Right Arm] 136/50 L 136/68 Blood Pressure Mean [Right Arm] 78 90 Blood Pressure Source [Right Arm] Automatic Cuff Automatic Cuff Blood Pressure Position [Right Arm] Sitting Sitting 02 Sat by Pulse Oximetry 98 98 99 Oxygen Delivery Method Nasal Cannula Nasal Cannula Nasal Cannula Oxygen Flow Rate (LPM) 3 3 3 09/14/18 13:18 09/14/18 14:02 Temperature Temperature Source Pulse Rate 72 Pulse Rate [Right Radial] 73 Respiratory Rate 24 Blood Pressure [Right Arm] 113/70 Blood Pressure Mean [Right Arm] 84 Blood Pressure Source [Right Arm] Automatic Cuff Blood Pressure Position [Right Arm] Sitting 02 Sat by Pulse Oximetry 95 Oxygen Delivery Method Nasal Cannula Oxygen Flow Rate (LPM) 3 - Lab Data Lab Results 09/14/18 11:51: WBC 9.9, RBC 3.69 L, Hgb 10.7 L, Hct 31.6 L, MCV 85.5, MCH 28.9, MCHC 33.8, RDW 14.3, Plt Count 182, MPV 6.1 L, Neut % (Auto) 80.4 H, Lymph % (Au to) 10.7, [place] % (Auto) 5.5, Eos % (Auto) 3.0, Baso % (Auto) 0.3, Neut # (Auto) 7.9 H, Lymph # (Auto) 1.1, [place] # (Auto) 0.6, Eos # (Auto) 0.3, Baso # (Auto) 0.0 09/14/18 11:51: Sodium 136, Potassium 4.1, Chloride 100, Carbon Dioxide 33 H, Anion Gap 7.1, BUN 18, Creatinine 1.25 H, Estimated Creat Clear 54, Estimated GFR 42 L, Est GFR ( Amer) 51 L, Glucose 111 H, Calcium 8.9, Total Bilirubin 0.3, AST 10 L, ALT 19, Alkaline Phosphatase 76, Troponin I < 0.02, Total Protein 7.8, Albumin 3.4, Globulin 4.4 H, Albumin/Globulin Ratio 0.8 L 09/14/18 11:51: Lactate 0.3 L 09/14/18 11:51: B-Natriuretic Peptide 121 H Result diagrams: 09/14/18 11:51 09/14/18 11:51 Orders (Tests/Meds): ED MEDICATIONS Discontinued Medications Generic Name Dose Route Start Last Admin Trade Name Freq PRN Reason Stop Dose Admin Albuterol/Ipratropium 3 ml 09/14/18 11:45 09/14/18 11:35 Duoneb 3ml Critical [facility] hospital 09/14/18 11:46 3 ml ONCE ONE Administration Albuterol/Ipratropium 3 ml 09/14/18 13:24 09/14/18 13:18 Duoneb 3ml Critical access hospital 09/14/18 13:25 3 ml ONCE ONE Administration Albuterol/Ipratropium 3 ml 09/14/18 14:14 Duoneb 3ml Critical access hospital 09/14/18 14:15 ONCE ONE Famotidine 20 mg 09/14/18 11:55 09/14/18 12:24 Pepcid 20mg/2ml Vial IV 09/14/18 11:56 20 mg ONCE ONE Administration Ceftriaxone Sodium 1 gm/ 50 mls @ 100 mls/hr 04/28/19 12:01 09/14/18 12:37 Sodium Chloride IV 09/14/18 12:30 100 mls/hr ONCE ONE Administration Protocol Lorazepam 1 mg 09/14/18 13:23 09/14/18 13:28 Ativan 2mg/Ml Vial IV 09/14/18 13:24 1 mg ONCE ONE Administration Methylprednisolone Sodium Succinate 125 mg 09/14/18 11:54 09/14/18 12:24 Solu-Medrol 125mg/2ml Vial IV 09/14/18 11:55 125 mg ONCE ONE Administration Ondansetron HCl 4 mg 09/14/18 12:32 09/14/18 12:37 Zofran 4mg/2ml Vial IV 09/14/18 12:33 4 mg ONCE ONE Administration ORDERS Category Date Time Status Blood Culture Stat Micro 09/14/18 12:15 Received ABG [Arterial Blood Gas] Stat RT 09/14/18 14:14 Ordered - Radiology Data #1 Image(s): Chest Image Reviewed: Yes I reviewed the patient's radiology image, Yes I have reviewed radiologist's interpretation Preliminary Findings: Abnormal IMPRESSION..... Slight lordotic projection on today's portable chest film accentuates markings at bases. Chronic changes left base is been previously noted. Question, suggestion of possible additional infiltrate left lung base. Noting left heart border & Left hemidiaphragm are not well delineated on today's study. Stable Port-A-Cath. Medical Decision Narrative: [address] arshad for admission the patient had a low CURB-65 score and he recommended additional neb treatment and bnp. 1430 after neb treatment the patient continues to wheeze on the right lung decreased air entry on the left lung sitting upright complaining of shortness of breath speaking short sentences. I discussed with her about admission she stated that she cannot care for herself at home. I spoke with Dr. Arshad who agreed to admit the patient for steroids repeated neb treatment and repeat labs and reevaluation in the morning. Resp/SOB HPI - General Chief Complaint: Shortness of Breath/Dyspnea Stated Complaint: Severe sob; nausea Time Seen by Provider: 09/14/18 11:30 Mode of Arrival: Wheelchair Limitations: No Limitations Description of Symptoms (Recalled from ER Triage Doc. by RN): Pt c/o feeling SOA since lastnight. Pt also reports feeling nausea. Pt also reports productive cough, reports sputum is green in color, reports cough began yesterday. Pt denies fevers. Pt reports she is home O2 dependent at 3L NC at home. - History of Present Illness 9 years old white female with history of COPD oxygen dependent on steroid therapy for COPD, congestive heart failure and insufficiency. Yesterday at noon she started experiencing shortness of breath associated with productive yellow- green sputum without fever or chills. Progressively gotten worse and she was brought to the ED today by her daughter for evaluation. He denies having chest pain palpitations she feels nauseous, dry heaving without vomiting. She denies having diarrhea. The patient has no hematemesis coffee-ground emesis melanotic stool or bleeding per rectum. She has no dysuria hematuria or frequency. Patient received breathing treatment before coming to the ED. The patient does have a morphine pump for chronic pain management. MD Complaint: shortness of breath, cough Onset (ago): day(s) (Started yesterday at noon.) Severity: mild Relieving factors: oxygen, rest, bronchodilators, upright position Exacerbating factors: lying flat, exertion Known history of: COPD Associated symptoms: cough, sputum production Treatment prior to arrival: bronchodilator - Related Data Home Medications Medication Instructions Recorded Confirmed Albuterol Sulfate [Albuterol 2.5 mg IH Q6HP PRN 05/24/17 08/22/18 0.083% 2.5mg/3mL neb] Albuterol Sulfate [Proair Hfa 2 puffs IH Q4HP PRN 05/24/17 08/22/18 90mcg/puff Inh] Aspirin [Aspirin 81mg EC Tab] 81 mg PO DAILY 05/24/17 08/22/18 Azelastine/Fluticasone [Dymista 1 spray NS BID 05/24/17 08/22/18 Nasal [place]] Bacillus Coagulans [Probiotic] 1 each PO DAILY 05/24/17 08/22/18 Budesonide/Formoterol Fumarate 2 puffs IH BID 05/24/17 08/22/18 [Symbicort 160-4.5 Mcg Inhaler] Bumetanide 2 mg PO DAILY 05/24/17 08/22/18 Buspirone HCl [Buspar 10mg tablet] 10 mg PO BID 05/24/17 08/22/18 Cholecalciferol (Vitamin D3) 400 unit PO DAILY 05/24/17 08/22/18 [Vitamin D3] Ferrous Sulfate [Iron] 325 mg PO DAILY 05/24/17 08/22/18 Hydrocortisone 2.5 mg PO HS 05/24/17 08/22/18 Hydrocortisone 5 mg PO DAILY 05/24/17 08/22/18 Ipratropium [place] [Atrovent 0.5 mg IH BIDP PRN 05/24/17 08/22/18 0.5mg/2.5mL neb] Loratadine [Claritin] 10 mg PO DAILY 05/24/17 08/22/18 Mirabegron [Myrbetriq] 50 mg PO DAILY 05/24/17 08/22/18 Montelukast Sodium [Montelukast 10 mg PO HS 05/24/17 08/22/18 10mg Tab] Multivitamin [Multivitamins] 1 each PO DAILY 05/24/17 08/22/18 Pantoprazole Sodium [Protonix 40mg 40 mg PO DAILY 05/24/17 08/22/18 tablet] Pilocarpine HCl [Salagen] 7.5 mg PO TIDP PRN 05/24/17 08/22/18 Polyethylene Glycol 3350 [Miralax 17 gm PO DAILYP PRN 05/24/17 08/22/18 17gm Packet] Sertraline HCl [Zoloft] 100 mg PO DAILY 05/24/17 08/22/18 Tiotropium [place] [Spiriva 1 puff INHALATION DAILY 05/24/17 08/22/18 18mcg/puff inhaler] Potassium Chloride [Micro-K 10mEq 20 meq PO DAILY 05/21/18 08/22/18 cap] Roflumilast [Daliresp] 500 mcg PO DAILY 05/21/18 08/22/18 Acetaminophen [Acetaminophen 325mg 325 mg PO Q6HP PRN 05/22/18 08/22/18 tab] Ondansetron [Ondansetron Odt 8mg 8 mg PO Q8HP PRN 05/22/18 08/22/18 Tab] Trazodone HCl 100 mg PO HS 05/22/18 08/22/18 Acetylcysteine [Mucomyst 20% 4mL 1 ml INHALATION TIDRT 06/10/18 08/22/18 vial] Sucralfate [Sucralfate 1gm 1 gm PO ACHS 09/14/18 09/14/18 Tab] Previous Rx's Medication Instructions Recorded Guaifenesin/Dextromethorphan 10 ml PO Q4HP PRN #200 liquid 03/30/18 [Guaifenesin-Dm Solution] Pregabalin [Lyrica 150mg Cap] 150 mg PO HS #30 cap 05/26/18 Allergies Allergy/AdvReac Type Severity Reaction Status Date / Time hydrocodone [HYDROCODONE] Allergy Severe dizziness, Verified 03/30/18 01:49 n/v metoclopramide [From REGLAN] Allergy Severe Swelling Verified 03/30/18 01:49 of Lip/Tongue/Throat codeine [CODEINE] Allergy Intermediate dizziness. Verified 03/30/18 01:49 n/v Sulfa (Sulfonamide AdvReac Mild n/v Verified 03/30/18 01:49 Antibiotics) [SULFA (SULFONAMIDE ANTIBIOTICS)] [facility] History - Hepatitis A Screen Drug use history?: No High risk sexual behaviors?: No History of sexually transmitted infection?: No Currently employed?: No Childcare worker?: No Do you have indoor plumbing?: Yes Do you have electricity?: Yes Attestation statement:: This patient has been screened for Hepatitis A risk factors. I have reviewed the patient's past medical history: Yes Medical History: Reports:: Anxiety, Chronic Obstructive Pulmonary Disease (COPD), Gastroesophageal Reflux Disease(GERD), Hypertension Denies:: Cancer, Diabetes Mellitus Type 1, Diabetes Mellitus Type 2, MRSA Other Medical History: Reports: Anemia Comment: Chronic Pain, Ig G subclass deficiency Other Surgeries: Yes: Hysterectomy-Total, Other (gallbladder removed) Amputation: No - Social History Smoking Status: Former smoker Tobacco Type: cigarettes #Yrs smoked (if former smoker): 40 Alcohol Intake: never Occupational Status: retired Housing: house Household Members: children - Psychiatric History Pschychiatric History:: Reports:: Anxiety Family Hx:: Non-contributory ROS Obtained: Yes All systems reviewed & no additional complaints Physical Exam - General General appearance: alert, in no apparent distress - Head Head exam: atraumatic, normocephalic, normal inspection - Eye Eye exam: Present: normal appearance, PERRL, EOMI. Absent: scleral icterus, nystagmus - ENT ENT exam: Present: normal exam, normal oropharynx, mucous membranes moist, TM's normal bilaterally, normal external ear exam - Neck Neck exam: Present: normal inspection, full ROM, trachea midline. Absent: meningismus, lymphadenopathy - Chest Chest inspection: Present: normal inspection, symmetric chest wall rise. Absent: tenderness - Respiratory Respiratory exam: Present: normal lung sounds bilaterally, respiratory distress, other (Mild respiratory distress with limited air entry. Use of accessory respiratory muscles) - Cardiovascular Cardiovascular exam: Present: regular rate, normal rhythm, normal heart sounds. Absent: JVD - Abdominal Exam Abdominal exam: Present: soft, normal bowel sounds, other (Right-sided pain pump. ). Absent: distention, tenderness, guarding, rebound, rigidity, tenderness at McBurney's Point - Extremities Exam Extremities exam: Present: normal inspection, full ROM, normal capillary refill. Absent: calf tenderness - Back Exam Back exam: Present: normal inspection. Absent: tenderness, CVA tenderness (R), CVA tenderness (L) - Neurological Exam Neurological exam: Present: alert, oriented X3, CN II-XII intact, motor sensory deficit, reflexes normal - Psychiatric Psychiatric exam: Present: normal affect, normal mood - Skin Skin exam: Present: warm, dry, intact, normal color - Lymphatic Lymphatic Findings: no adenopathy
[2018-09-14 12:02] LABS: Basophils % 0.3 % (0.1-2.0); Eosinophils # 0.3 K/mm3 (0.0-0.4); Hematocrit 31.6 % (37.0-47.0); Hemoglobin 10.7 g/dL (12.2-16.2); Lymphocytes # 1.1 K/mm3 (0.7-4.5); Lymphocytes % 10.7 % (10-50); Mean Corpuscular HGB Conc 33.8 g/dL (31.8-35.4); Mean Corpuscular Hemoglobin 28.9 pg (27.0-31.2); Mean Corpuscular Volume 85.5 fl (81-99); Mean Platelet Volume 6.1 fl (7.4-10.4); Monocytes # 0.6 K/mm3 (0.1-1.0); Monocytes % 5.5 % (1.7-9.3); Neutrophils # 7.9 K/mm3 (1.8-7.8); Neutrophils % 80.4 % (37.0-80.0); Platelet Count 182 K/mm3 (142-424); Red Blood Count 3.69 M/mm3 (4.20-5.40); Red Cell Distribution Width 14.3 % (11.5-17.5); White Blood Count 9.9 K/mm3 (4.8-10.8)
[2018-09-14 12:19] LABS: Alanine Aminotransferase 19 U/L (12-78); Albumin Level 3.4 gm/dL (3.4-5.0); Albumin/Globulin Ratio 0.8 (1.1-1.8); Alkaline Phosphatase 76 U/L (46-116); Anion Gap 7.1 mEq/L (5-15); Aspartate Amino Transferase 10 U/L (15-37); Bilirubin,Total 0.3 mg/dL (0.2-1.0); Blood Urea Nitrogen 18 mg/dL (7-18); Calcium 8.9 mg/dL (8.5-10.1); Carbon Dioxide 33 mmol/L (21.0-32.0); Chloride 100 mmol/L (98-107); Globulin 4.4 gm/dl (1.3-3.2); Glucose 111 mg/dL (74-106); Potassium 4.1 mmoL/L (3.5-5.1); Sodium 136 mmol/L (136-145); Total Protein,Serum 7.8 gm/dL (6.4-8.2)
[2018-09-14 21:53] LABS: ABG Base Excess 5.2 mmol/L (-2.4-2.3); ABG HCO3 33.4 mmhg (22.0-26.0); ABG Oxygen Saturation 98 % (90-100); ABG PO2 115.8 mmhg (80-100); ABG TCO2 36.2 mmhg (23-27)
[2018-09-14 21:56] LABS: Oxygen 45 %
[2018-09-14 21:57] LABS: ABG PCO2 90.4 mmhg (35.0-45.0); ABG PH 7.19 mmol/L (7.35-7.45); Allen's Test Y
[2018-09-14 23:54] LABS: ABG Base Excess 2.2 mmol/L (-2.4-2.3); ABG HCO3 31.2 mmhg (22.0-26.0); ABG Oxygen Saturation 84 % (90-100); ABG PO2 54.1 mmhg (80-100); ABG TCO2 34.1 mmhg (23-27)
[2018-09-15 00:27] LABS: Basophils % 0.2 % (0.1-2.0); Eosinophils % 0.2 % (0.1-12.0); Hematocrit 35.6 % (37.0-47.0); Lymphocytes # 0.3 K/mm3 (0.7-4.5); Lymphocytes % 2.8 % (10-50); Mean Corpuscular HGB Conc 33.2 g/dL (31.8-35.4); Mean Corpuscular Hemoglobin 28.7 pg (27.0-31.2); Mean Corpuscular Volume 86.5 fl (81-99); Monocytes # 0.2 K/mm3 (0.1-1.0); Monocytes % 1.8 % (1.7-9.3); Neutrophils # 10.8 K/mm3 (1.8-7.8); Neutrophils % 95.1 % (37.0-80.0); Platelet Count 234 K/mm3 (142-424); Red Blood Count 4.11 M/mm3 (4.20-5.40); Red Cell Distribution Width 14.4 % (11.5-17.5); White Blood Count 11.4 K/mm3 (4.8-10.8)
[2018-09-15 00:29] LABS: Hemoglobin 11.8 g/dL (12.2-16.2)
[2018-09-15 00:30] LABS: Anion Gap 9.2 mEq/L (5-15); Calcium 8.9 mg/dL (8.5-10.1); Potassium 5.2 mmoL/L (3.5-5.1)
[2018-09-15 00:58] LABS: Lymphocytes % 6 % (10-50); Neutrophils % 91 % (42-76); RBC Morphology Normal; Rouleaux 1+; Total Cells Counted 100
[2018-09-15 03:12] LABS: ABG Base Excess 1.3 mmol/L (-2.4-2.3); ABG HCO3 30.7 mmhg (22.0-26.0); ABG Oxygen Saturation 90 % (90-100); ABG TCO2 33.6 mmhg (23-27)
[2018-09-15 03:14] LABS: Oxygen 35 %
[2018-09-15 03:15] LABS: ABG PH 7.12 mmol/L (7.35-7.45); Allen's Test Y
[2018-09-15 03:16] LABS: ABG PCO2 96.7 mmhg (35.0-45.0)
--- NOTE | 2018-09-15 04:40 | Progress Note ---
Acute Rapid Response Note - Subjective Date Responded: 09/15/18 Time Responded: 00:00 - Objective Findings: Vital Signs - Last 4 Hours Temperature 96.0 F L 09/15/18 00:46 Temperature Source Rectal 09/15/18 00:46 Pulse Rate 80 09/15/18 02:00 Respiratory Rate 17 09/15/18 02:00 Blood Pressure 130/64 09/15/18 02:00 Blood Pressure Mean 86 09/15/18 02:00 Blood Pressure Source Automatic Cuff 09/15/18 02:00 Blood Pressure Position Left Lateral 09/15/18 02:00 02 Sat by Pulse Oximetry 93 L 09/15/18 02:00 Oxygen Delivery Method 09/15/18 02:00 Oxygen Flow Rate (LPM) 3 09/14/18 18:29 Lab Results for Past 12 Hours 09/15/18 03:11: Specimen Source R/r, O2 % 35, ABG pH 7.12 L*, ABG pCO2 96.7 H, ABG pO2 67.0 L, ABG HCO3 30.7 H, ABG Total CO2 33.6 H, ABG O2 Saturation 90, ABG Base Excess 1.3, Carlos Test Y, Vent Rate 16 09/14/18 23:50: Sodium 135 L, Potassium 5.2 H D, Chloride 99, Carbon Dioxide 32, Anion Gap 9.2, BUN 19 H, Creatinine 1.12 H, Estimated Creat Clear 61, Estimated GFR 48 L, Est GFR ( Amer) 58 L, Glucose 142 H D, Calcium 8.9 09/14/18 23:50: WBC 11.4 H, RBC 4.11 L, Hgb 11.8 L D, Hct 35.6 L, MCV 86.5, MCH 28.7, MCHC 33.2, RDW 14.4, Plt Count 234 D, MPV 6.0 L, Neut % (Auto) 95.1 H, Lymph % (Auto) 2.8 L, [place] % (Auto) 1.8, Eos % (Auto) 0.2, Baso % (Auto) 0.2, Neut # (Auto) 10.8 H, Lymph # (Auto) 0.3 L, [place] # (Auto) 0.2, Eos # (Auto) 0.0, Baso # (Auto) 0.0, Total Counted 100, Neutrophils % (Manual) 91 H, Band Neutrophils % 3.0, Lymphocytes % (Manual) 6 L, Platelet Estimate Normal, RBC Morphology Normal, Rouleaux 1+ 09/14/18 23:42: POC Glucose 143 H 09/14/18 21:52: Specimen Source R/r, O2 % 45, ABG pH 7.19 L*, ABG pCO2 90.4 H, ABG pO2 115.8 H, ABG HCO3 33.4 H, ABG Total CO2 36.2 H, ABG O2 Saturation 98, ABG Base Excess 5.2 H, Carlos Test Y, Vent Rate 20 My Orders Category Date Time Status XR chest portable Stat Exams 09/15/18 04:09 Ordered Methylprednisolone Sod Succ/Pf [Solu-Medrol 125mg/2mL Med 09/15/18 02:15 Discontinued vial] 125 mg IV ONCE ONE - Radiology Findings #1 Xray Reviewed: Chest Image Reviewed: Yes I reviewed the patient's radiology image ED XR Results: Abnormal (no new changes ) - ECG Data Tracing #1 Attestation EKG: I reviewed this ECG and interpreted as documented below: Ischemic changes: non-specific ST-T wave changes Rapid Response Exam - General General appearance: lethargic, obese - Head Head exam: atraumatic - Eye Eye exam: Present: PERRL, EOMI - ENT ENT exam: Present: mucous membranes dry - Neck Neck exam: Present: trachea midline - Respiratory Respiratory exam: Absent: other (dec bs bilat) - Cardiovascular Cardiovascular exam: Present: regular rate, systolic murmur, +S4 - Abdominal Exam Abdominal exam: Present: soft - Extremities Exam Extremities exam: Absent: pedal edema - Neurological Exam Neurological exam: Present: alert, CN II-XII intact. Absent: motor sensory deficit - Skin Skin exam: Absent: rash RR Procedures/Assess/Plan - Bedside Intubation Time Out Performed: Yes Sedative: Versed Mg given: 2 Laryngoscope: Ramos Tube size: 7 Tube uncuffed: No Secured location: teeth Placement confirmation: visualized tube passing through cords, equal breath sounds bilaterally, confirmation by capnometry Patient tolerated procedure intubation: well Intubation Complications: none
[2018-09-15 06:41] LABS: ABG Base Excess -0.6 mmol/L (-2.4-2.3); ABG Oxygen Saturation 99 % (90-100); ABG PCO2 45.6 mmhg (35.0-45.0); ABG PH 7.36 mmol/L (7.35-7.45); ABG PO2 148.1 mmhg (80-100); ABG TCO2 26.4 mmhg (23-27)
[2018-09-15 06:44] LABS: Allen's Test Patient Unable; Oxygen 40 %; PEEP 5; Tidal Volume 450
[2018-09-15 07:31] LABS: Basophils % 0.1 % (0.1-2.0); Hematocrit 32.8 % (37.0-47.0); Hemoglobin 10.9 g/dL (12.2-16.2); Lymphocytes # 0.4 K/mm3 (0.7-4.5); Lymphocytes % 2.4 % (10-50); Mean Corpuscular HGB Conc 33.2 g/dL (31.8-35.4); Mean Corpuscular Hemoglobin 28.9 pg (27.0-31.2); Mean Corpuscular Volume 86.9 fl (81-99); Mean Platelet Volume 6.6 fl (7.4-10.4); Monocytes # 0.4 K/mm3 (0.1-1.0); Neutrophils # 16.7 K/mm3 (1.8-7.8); Neutrophils % 95.5 % (37.0-80.0); Platelet Count 280 K/mm3 (142-424); Red Blood Count 3.77 M/mm3 (4.20-5.40); Red Cell Distribution Width 14.5 % (11.5-17.5); White Blood Count 17.4 K/mm3 (4.8-10.8)
--- NOTE | 2018-09-15 07:33 | History & Physical Report ---
*Admission Date: 09/14/18 *Chief complaint: Shortness of breath *History of present illness: 72-year-old female with very severe COPD presented to the emergency department yesterday afternoon with less than 24 hours of worsening shortness of breath. History is obtained from her daughters who are at bedside this morning. The daughter reports the patient began complaining of shortness of breath yesterday morning upon awakening. As the day progressed she felt like she was worsening despite use of home nebs. Ultimately patient was brought to the emergency department. In the emergency department she was diagnosed with COPD exacerbation and possible left lower lobe pneumonia and decision was ultimately made to admit the patient for IV steroids and IV antibiotics. On admission to the floor a blood gas was performed which revealed acute on chronic hypercapnic respiratory failure. Patient was started on BiPAP. Patient has been on BiPAP many times before during hospitalizations and usually responds well. Overnight however the patient acutely decompensated with a drop in blood pressure. A rapid response was called and the patient was intubated. Repeat blood gas prior to intubation showed worsening hypercapnia. Patient is currently intubated and family is at bedside. Patient was started on epinephrine overnight as a pressor. Patient is currently intubated. Discussion was had with the family regarding patient's wishes. They do report patient did wish for mechanical ventilation as long as it was not a long-term process. She had prior hospitalization at the [facility] where she was hospitalized for nearly 3 months with MRSA. This hospitalization is believed to be 2012. The patient's last hospitalization in April 2018 from RSV causing COPD exacerbation had significant impact on the patient regarding her baseline dyspnea. She did not recover well from that illness. [facility] History I have reviewed the patient's past medical history: Yes Medical History: Reports:: Anxiety, Chronic Obstructive Pulmonary Disease (COPD), Gastroesophageal Reflux Disease(GERD), Hypertension Denies:: Cancer, Diabetes Mellitus Type 1, Diabetes Mellitus Type 2, MRSA *Have you ever received a pneumonia vaccine?: Yes *Have you received a flu vaccine this season?: Yes Other Medical History: Reports: Anemia Comment:: MRSA pneumonia 2012 requiring prolonged hospitalization and intubation, IgG subclass deficiency Other Surgeries: Yes: Hysterectomy-Total, Other (gallbladder removed) Amputation: No - *Social History Educational Level: Completed High School Smoking Status: Former smoker Tobacco Type: cigarettes #Yrs smoked (if former smoker): 40 Alcohol Intake: never *Occupational Status:: retired Housing: house Household Members: children *Travel in the last 8 weeks: None - Psychiatric History Expresses thoughts of harming self/others: None Suicide Plan Description: No Plan Pschychiatric History:: Reports:: Anxiety Family Hx:: Non-contributory Review of Systems - Review of Systems Review of systems:: unable to obtain Meds Home Medications Medication Instructions Recorded Confirmed Type Albuterol Sulfate [Albuterol 2.5 mg IH Q6HP PRN 05/24/17 09/14/18 History 0.083% 2.5mg/3mL neb] Albuterol Sulfate [Proair Hfa 2 puffs IH Q4HP PRN 05/24/17 09/14/18 History 90mcg/puff Inh] Aspirin [Aspirin 81mg EC Tab] 81 mg PO DAILY 05/24/17 09/14/18 History Azelastine/Fluticasone [Dymista 1 spray NS BID 05/24/17 09/14/18 History Nasal [place]] Bacillus Coagulans [Probiotic] 1 each PO DAILY 05/24/17 09/14/18 History Budesonide/Formoterol Fumarate 2 puffs IH BID 05/24/17 09/14/18 History [Symbicort 160-4.5 Mcg Inhaler] Bumetanide 2 mg PO DAILY 05/24/17 09/14/18 History Buspirone HCl [Buspar 10mg tablet] 10 mg PO BID 05/24/17 09/14/18 History Cholecalciferol (Vitamin D3) 400 unit PO DAILY 05/24/17 09/14/18 History [Vitamin D3] Ferrous Sulfate [Iron] 325 mg PO DAILY 05/24/17 09/14/18 History Hydrocortisone 2.5 mg PO HS 05/24/17 09/14/18 History Hydrocortisone 5 mg PO DAILY 05/24/17 09/14/18 History Ipratropium [place] [Atrovent 0.5 mg IH BIDP PRN 05/24/17 09/14/18 History 0.5mg/2.5mL neb] Loratadine [Claritin] 10 mg PO DAILY 05/24/17 09/14/18 History Mirabegron [Myrbetriq] 50 mg PO DAILY 05/24/17 09/14/18 History Montelukast Sodium [Montelukast 10 mg PO HS 05/24/17 09/14/18 History 10mg Tab] Multivitamin [Multivitamins] 1 each PO DAILY 05/24/17 09/14/18 History Pantoprazole Sodium [Protonix 40mg 40 mg PO DAILY 05/24/17 09/14/18 History tablet] Pilocarpine HCl [Salagen] 7.5 mg PO TIDP PRN 05/24/17 09/14/18 History Polyethylene Glycol 3350 [Miralax 17 gm PO DAILYP PRN 05/24/17 09/14/18 History 17gm Packet] Sertraline HCl [Zoloft] 100 mg PO DAILY 05/24/17 09/14/18 History Guaifenesin/Dextromethorphan 10 ml PO Q4HP PRN #200 liquid 03/30/18 09/14/18 Rx [Guaifenesin-Dm Solution] Potassium Chloride [Micro-K 10mEq 20 meq PO DAILY 05/21/18 09/14/18 History cap] Roflumilast [Daliresp] 500 mcg PO DAILY 05/21/18 09/14/18 History Acetaminophen [Acetaminophen 325mg 325 mg PO Q6HP PRN 05/22/18 09/14/18 History tab] Ondansetron [Ondansetron Odt 8mg 8 mg PO Q8HP PRN 05/22/18 09/14/18 History Tab] Trazodone HCl 100 mg PO HS 05/22/18 09/14/18 History Pregabalin [Lyrica 150mg Cap] 150 mg PO HS #30 cap 05/26/18 09/14/18 Rx Acetylcysteine [Mucomyst 20% 4mL 1 ml INHALATION TIDRT 06/10/18 09/14/18 History vial] Sucralfate [Sucralfate 1gm 1 gm PO ACHS 09/14/18 09/14/18 History Tab] Allergies Allergy/AdvReac Type Severity Reaction Status Date / Time hydrocodone [HYDROCODONE] Allergy Severe dizziness, Verified 03/30/18 01:49 n/v metoclopramide [From REGLAN] Allergy Severe Swelling Verified 03/30/18 01:49 of Lip/Tongue/Throat codeine [CODEINE] Allergy Intermediate dizziness. Verified 03/30/18 01:49 n/v Sulfa (Sulfonamide AdvReac Mild n/v Verified 03/30/18 01:49 Antibiotics) [SULFA (SULFONAMIDE ANTIBIOTICS)] Exam Vital signs and Labs for Last 24 Hours: Temp Pulse Resp BP Pulse Ox 96.0 F L 91 H 17 81/57 L 95 09/15/18 00:46 09/15/18 06:38 09/15/18 02:00 09/15/18 06:38 09/15/18 07:00 Laboratory Results - last 24 hr 09/14/18 11:51: WBC 9.9, RBC 3.69 L, Hgb 10.7 L, Hct 31.6 L, MCV 85.5, MCH 28.9, MCHC 33.8, RDW 14.3, Plt Count 182, MPV 6.1 L, Neut % (Auto) 80.4 H, Lymph % (Auto) 10.7, [place] % (Auto) 5.5, Eos % (Auto) 3.0, Baso % (Auto) 0.3, Neut # (Auto) 7.9 H, Lymph # (Auto) 1.1, [place] # (Auto) 0.6, Eos # (Auto) 0.3, Baso # (Auto) 0.0 09/14/18 11:51: Sodium 136, Potassium 4.1, Chloride 100, Carbon Dioxide 33 H, Anion Gap 7.1, BUN 18, Creatinine 1.25 H, Estimated Creat Clear 54, Estimated GFR 42 L, Est GFR ( Amer) 51 L, Glucose 111 H, Calcium 8.9, Total Bilirubin 0.3, AST 10 L, ALT 19, Alkaline Phosphatase 76, Troponin I < 0.02, Total Protein 7.8, Albumin 3.4, Globulin 4.4 H, Albumin/Globulin Ratio 0.8 L 09/14/18 11:51: Lactate 0.3 L 09/14/18 11:51: B-Natriuretic Peptide 121 H 09/14/18 21:52: Specimen Source R/r, O2 % 45, ABG pH 7.19 L*, ABG pCO2 90.4 H, ABG pO2 115.8 H, ABG HCO3 33.4 H, ABG Total CO2 36.2 H, ABG O2 Saturation 98, ABG Base Excess 5.2 H, Carlos Test Y, Vent Rate 20 09/14/18 23:42: POC Glucose 143 H 09/14/18 23:50: WBC 11.4 H, RBC 4.11 L, Hgb 11.8 L D, Hct 35.6 L, MCV 86.5, MCH 28.7, MCHC 33.2, RDW 14.4, Plt Count 234 D, MPV 6.0 L, Neut % (Auto) 95.1 H, Lymph % (Auto) 2.8 L, [place] % (Auto) 1.8, Eos % (Auto) 0.2, Baso % (Auto) 0.2, Neut # (Auto) 10.8 H, Lymph # (Auto) 0.3 L, [place] # (Auto) 0.2, Eos # (Auto) 0.0, Baso # (Auto) 0.0, Total Counted 100, Neutrophils % (Manual) 91 H, Band [place] trophils % 3.0, Lymphocytes % (Manual) 6 L, Platelet Estimate Normal, RBC Morphology Normal, Rouleaux 1+ 09/14/18 23:50: Sodium 135 L, Potassium 5.2 H D, Chloride 99, Carbon Dioxide 32, Anion Gap 9.2, BUN 19 H, Creatinine 1.12 H, Estimated Creat Clear 61, Estimated GFR 48 L, Est GFR ( Amer) 58 L, Glucose 142 H D, Calcium 8.9 09/15/18 03:11: Specimen Source R/r, O2 % 35, ABG pH 7.12 L*, ABG pCO2 96.7 H, ABG pO2 67.0 L, ABG HCO3 30.7 H, ABG Total CO2 33.6 H, ABG O2 Saturation 90, ABG Base Excess 1.3, Carlos Test Y, Vent Rate 16 09/15/18 06:34: Specimen Source Right radial, O2 % 40, ABG pH 7.36, ABG pCO2 45.6 H, ABG pO2 148.1 H, ABG HCO3 25.0, ABG Total CO2 26.4, ABG O2 Saturation 99, ABG Base Excess -0.6, Carlos Test Patient unable, Vent Rate 18, Tidal Volume 450, PEEP 5 I & O for Last 24 hours: Intake & Output 09/12/18 09/13/18 09/14/18 09/15/18 11:59 11:59 11:59 11:59 Intake Total 55 / 55 Output Total 400 / 400 Balance -345 / -345 Weight 181 lb 182 lb 4 oz Microbiology Reports for the Last 24 Hours: Microbiology 09/14/18 15:53 Sputum - Expectorated Sputum Gram Stain - Final 09/14/18 15:53 Sputum - Expectorated Sputum Sputum Culture - Preliminary - Constitutional chronically ill appearing Comments: Intubated. Opens her eyes to vocal stimulus. - *Routine HEENT Exam Head: Present: normocephalic, atraumatic Eye: Present: PERRL ENT: Present: mucous membranes dry - *Routine Neck Exam Present: supple. Absent: JVD, carotid bruit - *Routine Respiratory Exam Present: patient mechanically ventilated, decreased breath sounds, wheezes, distant breath sounds - *Routine Cardiovascular Exam Present: RRR, Normal S1, Normal S2 - *Routine Abdominal Exam Present: soft, normoactive bowel sounds - *Routine Extremities Exam Present: cyanosis. Absent: clubbing, edema Comments: Of right middle finger - *Routine Skin Exam Present: intact. Absent: erythema - *Routine Neurological Exam Present: CN II-XII intact, moving all extremities. Absent: sensory deficit, motor deficit Assessment and Plan (1) Acute and chronic respiratory failure Current visit: Yes Status: Acute Category: Medical Code(s): J96.20 - Acute and chronic respiratory failure, unspecified whether with hypoxia or hypercapnia (2) COPD exacerbation Current visit: Yes Status: Acute Category: Medical Code(s): J44.1 - Chronic obstructive pulmonary disease with (acute) exacerbation (3) IgG subclass deficiency Current visit: Yes Status: Acute Category: Medical Code(s): D80.3 - Selective deficiency of immunoglobulin G [IgG] subclasses (4) Left lower lobe consolidation Current visit: Yes Status: Acute Category: Medical Code(s): J18.1 - Lobar pneumonia, unspecified organism (5) Dependence on supplemental oxygen Current visit: No Status: Acute Category: Medical Code(s): Z99.81 - Dependence on supplemental oxygen (6) Very severe chronic obstructive pulmonary disease Current visit: No Status: Acute Category: Medical Code(s): J44.9 - Chronic obstructive pulmonary disease, unspecified - Assessment and plan all Dx Assessment and Plan for all problems:: Had a long discussion with the family regarding the patient's current condition as well as her overall wishes. Family believes patient would want all measures taken. I have discussed with the family that the best course of treatment for her because of her severe underlying lung disease would be transfer to a higher level of care. Patient has previously seen Dr. Martinez. I will begin working on transfer to [facility] ICU. Patient will remain on epinephrine with titration as required.
[2018-09-15 07:36] LABS: Anion Gap 12.5 mEq/L (5-15); Calcium 8.6 mg/dL (8.5-10.1); Potassium 5.5 mmoL/L (3.5-5.1)
--- NOTE | 2018-09-15 07:49 | Pharmacy Consult Notes ---
[facility] Pharmacy VTE Monitoring - Patient Demographics Admission date: 09/14/18 Report Date: 09/15/18 Time: 07:48 Allergies/Adverse Reactions: Patient Allergies hydrocodone [HYDROCODONE] Allergy (Severe, Verified 03/30/18 01:49) dizziness, n/v metoclopramide [From REGLAN] Allergy (Severe, Verified 03/30/18 01:49) Swelling of Lip/Tongue/Throat codeine [CODEINE] Allergy (Intermediate, Verified 03/30/18 01:49) dizziness. n/v Sulfa (Sulfonamide Antibiotics) [SULFA (SULFONAMIDE ANTIBIOTICS)] Adverse Reaction (Mild, Verified 03/30/18 01:49) n/v Height: 1.52 m Weight: 82.667 kg Patient Problems: Current Active Problems (Updated 09/15/18 @ 07:41 by Asad Ford MD) COPD exacerbation (Acute) Left lower lobe consolidation (Acute) Anxiety (Acute) IgG subclass deficiency (Acute) Acute and chronic respiratory failure (Acute) - VTE Risk Labs: VTE Related Lab Results Hgb 10.9 g/dL (12.2-16.2) L 09/15/18 06:36 Hct 32.8 % (37.0-47.0) L 09/15/18 06:36 Plt Count 280 K/mm3 (142-424) 09/15/18 06:36 BUN 24 mg/dL (7-18) H D 09/15/18 06:36 Creatinine 1.24 mg/dL (0.55-1.02) H 09/15/18 06:36 Estimated Creat Clear 55 mL/min (50-200) 09/15/18 06:36 Was VTE Risk Assessment Performed: Yes VTE Risk Level: Very Low Risk - Prophylaxis VTE Prophylaxis Ordered?: Yes Types of VTE Prophylaxis: TEDS Knee High Location of Applied Device: Bilateral Lower Extremeties - VTE Diagnosis Confirmed Treatment or plan recommended: Continue Current Treatment
--- NOTE | 2018-09-15 12:52 | Discharge Summary ---
General - General Admission date:: 09/14/18 HPI HPI: 72-year-old female with very severe COPD presented to the emergency department yesterday afternoon with less than 24 hours of worsening shortness of breath. History is obtained from her daughters who are at bedside this morning. The daughter reports the patient began complaining of shortness of breath yesterday morning upon awakening. As the day progressed she felt like she was worsening despite use of home nebs. Ultimately patient was brought to the emergency department. In the emergency department she was diagnosed with COPD exacerbation and possible left lower lobe pneumonia and decision was ultimately made to admit the patient for IV steroids and IV antibiotics. On admission to the floor a blood gas was performed which revealed acute on chronic hypercapnic respiratory failure. Patient was started on BiPAP. Patient has been on BiPAP many times before during hospitalizations and usually responds well. Overnight however the patient acutely decompensated with a drop in blood pressure. A rapid response was called and the patient was intubated. Repeat blood gas prior to intubation showed worsening hypercapnia. Patient is currently intubated and family is at bedside. Patient was started on epinephrine overnight as a pressor. Patient is currently intubated. Discussion was had with the family regarding patient's wishes. They do report patient did wish for mechanical ventilation as long as it was not a long-term process. She had prior hospitalization at the [facility] where she was hospitalized for nearly 3 months with MRSA. This hospitalization is believed to be 2012. The patient's last hospitalization in April 2018 from RSV causing COPD exacerbation had significant impact on the patient regarding her baseline dyspnea. She did not recover well from that illness. Hospital Course Hospital Course: Patient was admitted and after deteriorating and requiring intubation it was felt that patient would benefit from specialized care. I contacted and spoke with ICU attending Dr. Santacruz who accepted the patient and she will be transferred when a bed becomes available. Objective Vital signs: Temp Pulse Resp BP Pulse Ox 98.8 F 95 H 18 113/64 100 09/15/18 09:10 09/15/18 11:58 09/15/18 11:58 09/15/18 11:58 09/15/18 11:58 Results Labs on day of discharge: Labs from last 24 hours 09/15/18 09/15/18 09/15/18 06:36 06:36 06:34 WBC 17.4 H D RBC 3.77 L Hgb 10.9 L Hct 32.8 L MCV 86.9 MCH 28.9 MCHC 33.2 RDW 14.5 Plt Count 280 MPV 6.6 L Neut % (Auto) 95.5 H Lymph % (Auto) 2.4 L [place] % (Auto) 2.0 Eos % (Auto) 0.0 L Baso % (Auto) 0.1 Neut # (Auto) 16.7 H Lymph # (Auto) 0.4 L [place] # (Auto) 0.4 Eos # (Auto) 0.0 Baso # (Auto) 0.0 Total Counted Neutrophils % (Manual) Band Neutrophils % Lymphocytes % (Manual) Platelet Estimate RBC Morphology Rouleaux Specimen Source Right radial O2 % 40 ABG pH 7.36 ABG pCO2 45.6 H ABG pO2 148.1 H ABG HCO3 25.0 ABG Total CO2 26.4 ABG O2 Saturation 99 ABG Base Excess -0.6 Carlos Test Patient unable Vent Rate 18 Tidal Volume 450 PEEP 5 Sodium 137 Potassium 5.5 H Chloride 101 Carbon Dioxide 29 Anion Gap 12.5 BUN 24 H D Creatinine 1.24 H Estimated Creat Clear 55 Estimated GFR 43 L Est GFR ( Amer) 52 L Glucose 155 H POC Glucose Calcium 8.6 B-Natriuretic Peptide 09/15/18 09/14/18 09/14/18 03:11 23:50 23:50 WBC 11.4 H RBC 4.11 L Hgb 11.8 L D Hct 35.6 L MCV 86.5 MCH 28.7 MCHC 33.2 RDW 14.4 Plt Count 234 D MPV 6.0 L Neut % (Auto) 95.1 H Lymph % (Auto) 2.8 L [place] % (Auto) 1.8 Eos % (Auto) 0.2 Baso % (Auto) 0.2 Neut # (Auto) 10.8 H Lymph # (Auto) 0.3 L [place] # (Auto) 0.2 Eos # (Auto) 0.0 Baso # (Auto) 0.0 Total Counted 100 Neutrophils % (Manual) 91 H Band Neutrophils % 3.0 Lymphocytes % (Manual) 6 L Platelet Estimate Normal RBC Morphology Normal Rouleaux 1+ Specimen Source R/r O2 % 35 ABG pH 7.12 L* ABG pCO2 96.7 H ABG pO2 67.0 L ABG HCO3 30.7 H ABG Total CO2 33.6 H ABG O2 Saturation 90 ABG Base Excess 1.3 Carlos Test Y Vent Rate 16 Tidal Volume PEEP Sodium 135 L Potassium 5.2 H D Chloride 99 Carbon Dioxide 32 Anion Gap 9.2 BUN 19 H Creatinine 1.12 H Estimated Creat Clear 61 Estimated GFR 48 L Est GFR ( Amer) 58 L Glucose 142 H D POC Glucose Calcium 8.9 B-Natriuretic Peptide 09/14/18 09/14/18 09/14/18 23:42 21:52 11:51 WBC RBC Hgb Hct MCV MCH MCHC RDW Plt Count MPV Neut % (Auto) Lymph % (Auto) [place] % (Auto) Eos % (Auto) Baso % (Auto) Neut # (Auto) Lymph # (Auto) [place] # (Auto) Eos # (Auto) Baso # (Auto) Total Counted Neutrophils % (Manual) Band Neutrophils % Lymphocytes % (Manual) Platelet Estimate RBC Morphology Rouleaux Specimen Source R/r O2 % 45 ABG pH 7.19 L* ABG pCO2 90.4 H ABG pO2 115.8 H ABG HCO3 33.4 H ABG Total CO2 36.2 H ABG O2 Saturation 98 ABG Base Excess 5.2 H Carlos Test Y Vent Rate 20 Tidal Volume PEEP Sodium Potassium Chloride Carbon Dioxide Anion Gap BUN Creatinine Estimated Creat Clear Estimated GFR Est GFR ( Amer) Glucose POC Glucose 143 H Calcium B-Natriuretic Peptide 121 H Preliminary micro results at discharge 09/14/18 15:53 Sputum Culture - Preliminary Sputum - Expectorated Sputum DS: Diagnosis - Discharge Diagnosis (1) Acute and chronic respiratory failure Status: Acute (2) COPD exacerbation Status: Acute (3) IgG subclass deficiency Status: Acute (4) Left lower lobe consolidation Status: Acute (5) Dependence on supplemental oxygen Status: Acute (6) Very severe chronic obstructive pulmonary disease Status: Acute Discharge Plan - Patient Discharge Instructions ACTIVITY: Continue current activity DIET: continue same diet Patient Instructions: Chronic Obstructive Pulmonary Disease, DI for Pneumonia -- Adult - Follow up Plan Disposition: Xfer Short-Term Hosp Home Medications: Home Medications Medication Instructions Recorded Confirmed Type Albuterol Sulfate [Albuterol 2.5 mg IH Q6HP PRN 05/24/17 09/14/18 History 0.083% 2.5mg/3mL neb] Albuterol Sulfate [Proair Hfa 2 puffs IH Q4HP PRN 05/24/17 09/14/18 History 90mcg/puff Inh] Aspirin [Aspirin 81mg EC Tab] 81 mg PO DAILY 05/24/17 09/14/18 History Azelastine/Fluticasone [Dymista 1 spray NS BID 05/24/17 09/14/18 History Nasal [place]] Bacillus Coagulans [Probiotic] 1 each PO DAILY 05/24/17 09/14/18 History Budesonide/Formoterol Fumarate 2 puffs IH BID 05/24/17 09/14/18 History [Symbicort 160-4.5 Mcg Inhaler] Bumetanide 2 mg PO DAILY 05/24/17 09/14/18 History Buspirone HCl [Buspar 10mg tablet] 10 mg PO BID 05/24/17 09/14/18 History Cholecalciferol (Vitamin D3) 400 unit PO DAILY 05/24/17 09/14/18 History [Vitamin D3] Ferrous Sulfate [Iron] 325 mg PO DAILY 05/24/17 09/14/18 History Hydrocortisone 7.5 mg PO DIRECTED 05/24/17 09/15/18 History Ipratropium [place] [Atrovent 0.5 mg IH BIDP PRN 05/24/17 09/14/18 History 0.5mg/2.5mL neb] Loratadine [Claritin] 10 mg PO DAILY 05/24/17 09/14/18 History Mirabegron [Myrbetriq] 50 mg PO DAILY 05/24/17 09/14/18 History Montelukast Sodium [Montelukast 10 mg PO HS 05/24/17 09/14/18 History 10mg Tab] Multivitamin [Multivitamins] 1 each PO DAILY 05/24/17 09/14/18 History Pantoprazole Sodium [Protonix 40mg 40 mg PO DAILY 05/24/17 09/14/18 History tablet] Pilocarpine HCl [Salagen] 7.5 mg PO TIDP PRN 05/24/17 09/14/18 History Polyethylene Glycol 3350 [Miralax 17 gm PO DAILYP PRN 05/24/17 09/14/18 History 17gm Packet] Sertraline HCl [Zoloft] 100 mg PO DAILY 05/24/17 09/14/18 History Guaifenesin/Dextromethorphan 10 ml PO Q4HP PRN #200 liquid 03/30/18 09/14/18 Rx [Guaifenesin-Dm Solution] Potassium Chloride [Micro-K 10mEq 20 meq PO DAILY 05/21/18 09/14/18 History cap] Roflumilast [Daliresp] 500 mcg PO DAILY 05/21/18 09/14/18 History Acetaminophen [Acetaminophen 325mg 325 mg PO Q6HP PRN 05/22/18 09/14/18 History tab] Ondansetron [Ondansetron Odt 8mg 8 mg PO DAILY 05/22/18 09/15/18 History Tab] Trazodone HCl 100 mg PO HS 05/22/18 09/14/18 History Pregabalin [Lyrica 150mg Cap] 150 mg PO HS #30 cap 05/26/18 09/14/18 Rx Acetylcysteine [Mucomyst 20% 4mL 1 ml INHALATION TIDRT 06/10/18 09/14/18 History vial] Sucralfate [Sucralfate 1gm 1 gm PO BID 09/14/18 09/15/18 History Tab] Nadolol [Corgard] 20 mg PO BID 09/15/18 09/15/18 History Tiotropium [place] [Spiriva 1 puff IH DAILY 09/15/18 09/15/18 History 18mcg/puff inhaler] Prescriptions/Medication Reconciliation: Continued Montelukast Sodium [Montelukast 10mg Tab] 10 mg PO HS Albuterol Sulfate [Proair Hfa 90mcg/puff Inh] 2 puffs IH Q4HP PRN PRN Reason: Shortness Of Breath Or Wheezing Sertraline HCl [Zoloft] 100 mg PO DAILY Polyethylene Glycol 3350 [Miralax 17gm Packet] 17 gm PO DAILYP PRN PRN Reason: Constipation Pantoprazole Sodium [Protonix 40mg tablet] 40 mg PO DAILY Multivitamin [Multivitamins] 1 each PO DAILY Mirabegron [Myrbetriq] 50 mg PO DAILY Loratadine [Claritin] 10 mg PO DAILY Ipratropium [place] [Atrovent 0.5mg/2.5mL neb] 0.5 mg IH BIDP PRN PRN Reason: Shortness Of Breath Or Wheezing Hydrocortisone 7.5 mg PO DIRECTED Ferrous Sulfate [Iron] 325 mg PO DAILY Buspirone HCl [Buspar 10mg tablet] 10 mg PO BID Bumetanide 2 mg PO DAILY Budesonide/Formoterol Fumarate [Symbicort 160-4.5 Mcg Inhaler] 2 puffs IH BID Bacillus Coagulans [Probiotic] 1 each PO DAILY Azelastine/Fluticasone [Dymista Nasal [place]] 1 spray NS BID Albuterol Sulfate [Albuterol 0.083% 2.5mg/3mL neb] 2.5 mg IH Q6HP PRN PRN Reason: Shortness Of Breath Or Wheezing Potassium Chloride [Micro-K 10mEq cap] 20 meq PO DAILY Trazodone HCl 100 mg PO HS Acetaminophen [Acetaminophen 325mg tab] 325 mg PO Q6HP PRN PRN Reason: As Needed For Fever Or Pain Ondansetron [Ondansetron Odt 8mg Tab] 8 mg PO DAILY Sucralfate [Sucralfate 1gm Tab] 1 gm PO BID Nadolol [Corgard] 20 mg PO BID Tiotropium [place] [Spiriva 18mcg/puff inhaler] 1 puff IH DAILY Aspirin [Aspirin 81mg EC Tab] 81 mg PO DAILY Pilocarpine HCl [Salagen] 7.5 mg PO TIDP PRN PRN Reason: DRY MOUTH Cholecalciferol (Vitamin D3) [Vitamin D3] 400 unit PO DAILY Guaifenesin/Dextromethorphan [Guaifenesin-Dm Solution] 10 ml PO Q4HP PRN #200 liquid PRN Reason: Cough Roflumilast [Daliresp] 500 mcg PO DAILY Pregabalin [Lyrica 150mg Cap] 150 mg PO HS #30 cap Acetylcysteine [Mucomyst 20% 4mL vial] 1 ml INHALATION TIDRT
--- NOTE | 2018-09-15 13:31 | Pharmacy Consult Notes ---
- Pharmacy Consult Date: 09/15/18 Time: 13:27 Referring provider: DR. REID Reason for Consult:: VANCOMYCIN DOSING Allergies and ADEs:: Allergies Allergy/AdvReac Type Severity Reaction Status Date / Time hydrocodone [HYDROCODONE] Allergy Severe dizziness, Verified 03/30/18 01:49 n/v metoclopramide [From REGLAN] Allergy Severe Swelling Verified 03/30/18 01:49 of Lip/Tongue/Throat codeine [CODEINE] Allergy Intermediate dizziness. Verified 03/30/18 01:49 n/v Sulfa (Sulfonamide AdvReac Mild n/v Verified 03/30/18 01:49 Antibiotics) [SULFA (SULFONAMIDE ANTIBIOTICS)] Home Medications:: Home Medications Medication Instructions Recorded Confirmed Type Albuterol Sulfate [Albuterol 2.5 mg IH Q6HP PRN 05/24/17 09/14/18 History 0.083% 2.5mg/3mL neb] Albuterol Sulfate [Proair Hfa 2 puffs IH Q4HP PRN 05/24/17 09/14/18 History 90mcg/puff Inh] Aspirin [Aspirin 81mg EC Tab] 81 mg PO DAILY 05/24/17 09/14/18 History Azelastine/Fluticasone [Dymista 1 spray NS BID 05/24/17 09/14/18 History Nasal [place]] Bacillus Coagulans [Probiotic] 1 each PO DAILY 05/24/17 09/14/18 History Budesonide/Formoterol Fumarate 2 puffs IH BID 05/24/17 09/14/18 History [Symbicort 160-4.5 Mcg Inhaler] Bumetanide 2 mg PO DAILY 05/24/17 09/14/18 History Buspirone HCl [Buspar 10mg tablet] 10 mg PO BID 05/24/17 09/14/18 History Cholecalciferol (Vitamin D3) 400 unit PO DAILY 05/24/17 09/14/18 History [Vitamin D3] Ferrous Sulfate [Iron] 325 mg PO DAILY 05/24/17 09/14/18 History Hydrocortisone 7.5 mg PO DIRECTED 05/24/17 09/15/18 History Ipratropium [place] [Atrovent 0.5 mg IH BIDP PRN 05/24/17 09/14/18 History 0.5mg/2.5mL neb] Loratadine [Claritin] 10 mg PO DAILY 05/24/17 09/14/18 History Mirabegron [Myrbetriq] 50 mg PO DAILY 05/24/17 09/14/18 History Montelukast Sodium [Montelukast 10 mg PO HS 05/24/17 09/14/18 History 10mg Tab] Multivitamin [Multivitamins] 1 each PO DAILY 05/24/17 09/14/18 History Pantoprazole Sodium [Protonix 40mg 40 mg PO DAILY 05/24/17 09/14/18 History tablet] Pilocarpine HCl [Salagen] 7.5 mg PO TIDP PRN 05/24/17 09/14/18 History Polyethylene Glycol 3350 [Miralax 17 gm PO DAILYP PRN 05/24/17 09/14/18 History 17gm Packet] Sertraline HCl [Zoloft] 100 mg PO DAILY 05/24/17 09/14/18 History Guaifenesin/Dextromethorphan 10 ml PO Q4HP PRN #200 liquid 03/30/18 09/14/18 Rx [Guaifenesin-Dm Solution] Potassium Chloride [Micro-K 10mEq 20 meq PO DAILY 05/21/18 09/14/18 History cap] Roflumilast [Daliresp] 500 mcg PO DAILY 05/21/18 09/14/18 History Acetaminophen [Acetaminophen 325mg 325 mg PO Q6HP PRN 05/22/18 09/14/18 History tab] Ondansetron [Ondansetron Odt 8mg 8 mg PO DAILY 05/22/18 09/15/18 History Tab] Trazodone HCl 100 mg PO HS 05/22/18 09/14/18 History Pregabalin [Lyrica 150mg Cap] 150 mg PO HS #30 cap 05/26/18 09/14/18 Rx Acetylcysteine [Mucomyst 20% 4mL 1 ml INHALATION TIDRT 06/10/18 09/14/18 History vial] Sucralfate [Sucralfate 1gm 1 gm PO BID 09/14/18 09/15/18 History Tab] Nadolol [Corgard] 20 mg PO BID 09/15/18 09/15/18 History Tiotropium [place] [Spiriva 1 puff IH DAILY 09/15/18 09/15/18 History 18mcg/puff inhaler] Height: 1.52 m Weight: 82.667 kg Laboratory Results:: Laboratory Results - last 24 hr 09/14/18 11:51: B-Natriuretic Peptide 121 H 09/14/18 21:52: Specimen Source R/r, O2 % 45, ABG pH 7.19 L*, ABG pCO2 90.4 H, ABG pO2 115.8 H, ABG HCO3 33.4 H, ABG Total CO2 36.2 H, ABG O2 Saturation 98, ABG Base Excess 5.2 H, Carlos Test Y, Vent Rate 20 09/14/18 23:42: POC Glucose 143 H 09/14/18 23:50: WBC 11.4 H, RBC 4.11 L, Hgb 11.8 L D, Hct 35.6 L, MCV 86.5, MCH 28.7, MCHC 33.2, RDW 14.4, Plt Count 234 D, MPV 6.0 L, Neut % (Auto) 95.1 H, Lymph % (Auto) 2.8 L, [place] % (Auto) 1.8, Eos % (Auto) 0.2, Baso % (Auto) 0.2, Neut # (Auto) 10.8 H, Lymph # (Auto) 0.3 L, [place] # (Auto) 0.2, Eos # (Auto) 0.0, Baso # (Auto) 0.0, Total Counted 100, Neutrophils % (Manual) 91 H, Band Neutrophils % 3.0, Lymphocytes % (Manual) 6 L, Platelet Estimate Normal, RBC Morphology Normal, Rouleaux 1+ 09/14/18 23:50: Sodium 135 L, Potassium 5.2 H D, Chloride 99, Carbon Dioxide 32, Anion Gap 9.2, BUN 19 H, Creatinine 1.12 H, Estimated Creat Clear 61, Estimated GFR 48 L, Est GFR ( Amer) 58 L, Glucose 142 H D, Calcium 8.9 09/15/18 03:11: Specimen Source R/r, O2 % 35, ABG pH 7.12 L*, ABG pCO2 96.7 H, ABG pO2 67.0 L, ABG HCO3 30.7 H, ABG Total CO2 33.6 H, ABG O2 Saturation 90, ABG Base Excess 1.3, Carlos Test Y, Vent Rate 16 09/15/18 06:34: Specimen Source Right radial, O2 % 40, ABG pH 7.36, ABG pCO2 45.6 H, ABG pO2 148.1 H, ABG HCO3 25.0, ABG Total CO2 26.4, ABG O2 Saturation 99, ABG Base Excess -0.6, Carlos Test Patient unable, Vent Rate 18, Tidal Volume 450, PEEP 5 09/15/18 06:36: WBC 17.4 H D, RBC 3.77 L, Hgb 10.9 L, Hct 32.8 L, MCV 86.9, MCH 28.9, MCHC 33.2, RDW 14.5, Plt Count 280, MPV 6.6 L, Neut % (Auto) 95.5 H, Lymph % (Auto) 2.4 L, [place] % (Auto) 2.0, Eos % (Auto) 0.0 L, Baso % (Auto) 0.1, Neut # (Auto) 16.7 H, Lymph # (Auto) 0.4 L, [place] # (Auto) 0.4, Eos # (Auto) 0.0, Baso # (Auto) 0.0 09/15/18 06:36: Sodium 137, Potassium 5.5 H, Chloride 101, Carbon Dioxide 29, Anion Gap 12.5, BUN 24 H D, Creatinine 1.24 H, Estimated Creat Clear 55, Estimated GFR 43 L, Est GFR ( Amer) 52 L, Glucose 155 H, Calcium 8.6 Medical History: Reports:: Anxiety, Chronic Obstructive Pulmonary Disease (COPD), Gastroesophageal Reflux Disease(GERD), Hypertension Denies:: Cancer, Diabetes Mellitus Type 1, Diabetes Mellitus Type 2, MRSA Assessment and Plan (1) Acute and chronic respiratory failure Current visit: Yes Status: Acute Category: Medical Code(s): J96.20 - Acute and chronic respiratory failure, unspecified whether with hypoxia or hypercapnia (2) COPD exacerbation Current visit: Yes Status: Acute Category: Medical Code(s): J44.1 - Chronic obstructive pulmonary disease with (acute) exacerbation (3) IgG subclass deficiency Current visit: Yes Status: Acute Category: Medical Code(s): D80.3 - Selective deficiency of immunoglobulin G [IgG] subclasses (4) Left lower lobe consolidation Current visit: Yes Status: Acute Category: Medical Code(s): J18.1 - Lobar pneumonia, unspecified organism (5) Dependence on supplemental oxygen Current visit: No Status: Acute Category: Medical Code(s): Z99.81 - Dependence on supplemental oxygen (6) Very severe chronic obstructive pulmonary disease Current visit: No Status: Acute Category: Medical Code(s): J44.9 - Chronic obstructive pulmonary disease, unspecified - Assessment and plan all Dx Assessment and Plan for all problems:: BASED ON PATIENT FACTORS, RECOMMEND INITIATING VANCOMYCIN IV AT 1,250MG EVERY 24 HOURS. PHARMACY WILL MONITOR AND ADJUST DOSE APPROPRIATE. -YASEMIN BHATTI, ODETTED
[2018-09-16 06:32] LABS: ABG Base Excess -2.6 mmol/L (-2.4-2.3); ABG HCO3 23.3 mmhg (22.0-26.0); ABG Oxygen Saturation 97 % (90-100); ABG PCO2 44.8 mmhg (35.0-45.0); ABG PH 7.33 mmol/L (7.35-7.45); ABG PO2 114.5 mmhg (80-100); ABG TCO2 24.7 mmhg (23-27)
[2018-09-16 06:34] LABS: Allen's Test ACCEPTABLE; Oxygen 35 %; PEEP 5; Tidal Volume 450
--- NOTE | 2018-09-16 06:48 | Progress Note ---
Internal Medicine - PN: Subj *Date: 09/16/18 *Time: 06:44 Interval history: Patient is sedated and intubated this morning. Apparently yesterday evening she requested assistance with sleep and so her propofol drip was turned to allow for light sedation. Nursing staff reports that patient was awake and alert yesterday. She communicated by writing. Overnight some EKG changes were noted and patient had a troponin ordered which returned abnormal. Nursing staff also reports urine output has been good although quite variable. As an example 1 hour she put out 15 mL's of urine in the next hour 125. At present her epinephrine drip has been weaned to 1 mcg/min Exam Vital signs and Labs for Last 24 Hours: Temp Pulse Resp BP Pulse Ox 98.2 F 76 18 94/60 L 100 09/16/18 06:00 09/16/18 06:00 09/16/18 06:00 09/16/18 06:00 09/16/18 06:00 Laboratory Results - last 24 hr 09/15/18 06:34: Specimen Source Right radial, O2 % 40, ABG pH 7.36, ABG pCO2 45.6 H, ABG pO2 148.1 H, ABG HCO3 25.0, ABG Total CO2 26.4, ABG O2 Saturation 99, ABG Base Excess -0.6, Carlos Test Patient unable, Vent Rate 18, Tidal Volume 450, PEEP 5 09/15/18 06:36: WBC 17.4 H D, RBC 3.77 L, Hgb 10.9 L, Hct 32.8 L, MCV 86.9, MCH 28.9, MCHC 33.2, RDW 14.5, Plt Count 280, MPV 6.6 L, Neut % (Auto) 95.5 H, Lymph % (Auto) 2.4 L, [place] % (Auto) 2.0, Eos % (Auto) 0.0 L, Baso % (Auto) 0.1, Neut # (Auto) 16.7 H, Lymph # (Auto) 0.4 L, [place] # (Auto) 0.4, Eos # (Auto) 0.0, Baso # (Auto) 0.0 09/15/18 06:36: Sodium 137, Potassium 5.5 H, Chloride 101, Carbon Dioxide 29, Anion Gap 12.5, BUN 24 H D, Creatinine 1.24 H, Estimated Creat Clear 55, Estimated GFR 43 L, Est GFR ( Amer) 52 L, Glucose 155 H, Calcium 8.6 09/16/18 04:20: Troponin I 0.96 H 09/16/18 06:00: Specimen Source L radial, O2 % 35, ABG pH 7.33 L, ABG pCO2 44.8, ABG pO2 114.5 H, ABG HCO3 23.3, ABG Total CO2 24.7, ABG O2 Saturation 97, ABG Base Excess -2.6 L, Carlos Test Acceptable, Vent Rate 18, Tidal Volume 450, PEEP 5 I & O for Last 24 hours: Intake & Output 09/13/18 09/14/18 09/15/18 09/16/18 11:59 11:59 11:59 11:59 Intake Total 1664 / 1664 2826 / 2826 Output Total 998 / 998 599 / 599 Balance 666 / 666 2227 / 2227 Weight 181 lb 182 lb 4 oz 178 lb 9.191 oz Microbiology Reports for the Last 24 Hours: Microbiology 09/14/18 15:53 Sputum - Expectorated Sputum Gram Stain - Final 09/14/18 15:53 Sputum - Expectorated Sputum Sputum Culture - Preliminary Narrative: She is sedated and appears comfortable. There is no respiratory distress. Heart has a regular rate and rhythm. Lung exam has fair aeration both anteriorly and posteriorly without rales or wheezing. Extremities are without edema Assessment and Plan (1) Acute and chronic respiratory failure Current visit: Yes Status: Acute Category: Medical Code(s): J96.20 - Acute and chronic respiratory failure, unspecified whether with hypoxia or hypercapnia (2) COPD exacerbation Current visit: Yes Status: Acute Category: Medical Code(s): J44.1 - Chronic obstructive pulmonary disease with (acute) exacerbation (3) IgG subclass deficiency Current visit: Yes Status: Acute Category: Medical Code(s): D80.3 - Selective deficiency of immunoglobulin G [IgG] subclasses (4) Left lower lobe consolidation Current visit: Yes Status: Acute Category: Medical Code(s): J18.1 - Lobar pneumonia, unspecified organism (5) Dependence on supplemental oxygen Current visit: No Status: Acute Category: Medical Code(s): Z99.81 - Dependence on supplemental oxygen (6) Very severe chronic obstructive pulmonary disease Current visit: No Status: Acute Category: Medical Code(s): J44.9 - Chronic obstructive pulmonary disease, unspecified (7) Elevated troponin Current visit: Yes Status: Acute Category: Medical Code(s): R74.8 - Abnormal levels of other serum enzymes - Assessment and plan all Dx Assessment and Plan for all problems:: 1. We are still awaiting transfer to [facility] for her acute on chronic respiratory failure. Dr. Martinez will be consulted today if he is in- house. May consider a trial of CPAP once patient awakens this morning. 2. Check echocardiogram to rule out LV dysfunction 3. Patient has been given Lovenox and loaded with Plavix for her elevated troponin.
[2018-09-16 07:16] LABS: ABG PCO2 93.1 mmhg (35.0-45.0); ABG PH 7.14 mmol/L (7.35-7.45)
[2018-09-16 07:18] LABS: Allen's Test ACCEPTABLE; Oxygen 40% %; Tidal Volume BIPAP 16/8
[2018-09-16 07:19] LABS: Basophils % 0.1 % (0.1-2.0); Eosinophils % 0.1 % (0.1-12.0); Hematocrit 28.6 % (37.0-47.0); Lymphocytes # 0.9 K/mm3 (0.7-4.5); Lymphocytes % 9.7 % (10-50); Mean Corpuscular HGB Conc 32.9 g/dL (31.8-35.4); Mean Corpuscular Hemoglobin 28.6 pg (27.0-31.2); Mean Corpuscular Volume 86.9 fl (81-99); Mean Platelet Volume 6.7 fl (7.4-10.4); Monocytes # 0.4 K/mm3 (0.1-1.0); Monocytes % 4.5 % (1.7-9.3); Neutrophils # 7.5 K/mm3 (1.8-7.8); Neutrophils % 85.6 % (37.0-80.0); Platelet Count 244 K/mm3 (142-424); Red Blood Count 3.29 M/mm3 (4.20-5.40); Red Cell Distribution Width 14.9 % (11.5-17.5); White Blood Count 8.8 K/mm3 (4.8-10.8)
[2018-09-16 07:21] LABS: Anion Gap 12.2 mEq/L (5-15); Calcium 8.1 mg/dL (8.5-10.1); Potassium 4.2 mmoL/L (3.5-5.1)
[2018-09-16 08:03] LABS: Hemoglobin 9.5 g/dL (12.2-16.2)
--- NOTE | 2018-09-16 11:09 | Consult Report ---
History of Present Illness Consult date: 09/16/18 Requesting physician: Asad Ford Chief complaint: Respiratory Failure, Cardiomyopathy Additional Medical History:: 1. Severe COPD A. history of tobacco use 2. Cardiomyopathy, Echo, 08/2018 3. Adrenal Insufficiency, per family 4. HTN 5. GERD History of present illness: 72 yo WF admitted for acute on chronic respiratory failure that is now sedated, intubated and on the ventilator. Labs show elevated troponin with preliminary echo showing reduced LVEF (about 35%) without evidence of CHF on Chest X-ray and BNP of 121. ABG has improved on vent with CO2 dropping from 90's to 40's. Pt is on epinephrine gtt for BP support but is tolerating weaning. Cardiology consulted for evaluation and recommendations. [facility] History Medical History: Reports:: Anxiety, Chronic Obstructive Pulmonary Disease (COPD), Gastroesophageal Reflux Disease(GERD), Hypertension Denies:: Cancer, Diabetes Mellitus Type 1, Diabetes Mellitus Type 2, MRSA *Have you ever received a pneumonia vaccine?: Yes *Have you received a flu vaccine this season?: Yes Other Medical History: Reports: Anemia Other Surgeries: Yes: Hysterectomy-Total, Other (gallbladder removed) Amputation: No - *Social History Educational Level: Completed High School Smoking Status: Former smoker Tobacco Type: cigarettes #Yrs smoked (if former smoker): 40 Alcohol Intake: never *Occupational Status:: retired Housing: house Household Members: children *Travel in the last 8 weeks: None - Psychiatric History Expresses thoughts of harming self/others: None Suicide Plan Description: No Plan Pschychiatric History:: Reports:: Anxiety Family Hx:: Non-contributory Meds Home Medications Medication Instructions Recorded Confirmed Type Albuterol Sulfate [Albuterol 2.5 mg IH Q6HP PRN 05/24/17 09/14/18 History 0.083% 2.5mg/3mL neb] Albuterol Sulfate [Proair Hfa 2 puffs IH Q4HP PRN 05/24/17 09/14/18 History 90mcg/puff Inh] Aspirin [Aspirin 81mg EC Tab] 81 mg PO DAILY 05/24/17 09/14/18 History Azelastine/Fluticasone [Dymista 1 spray NS BID 05/24/17 09/14/18 History Nasal [place]] Bacillus Coagulans [Probiotic] 1 each PO DAILY 05/24/17 09/14/18 History Budesonide/Formoterol Fumarate 2 puffs IH BID 05/24/17 09/14/18 History [Symbicort 160-4.5 Mcg Inhaler] Bumetanide 2 mg PO DAILY 05/24/17 09/14/18 History Buspirone HCl [Buspar 10mg tablet] 10 mg PO BID 05/24/17 09/14/18 History Cholecalciferol (Vitamin D3) 400 unit PO DAILY 05/24/17 09/14/18 History [Vitamin D3] Ferrous Sulfate [Iron] 325 mg PO DAILY 05/24/17 09/14/18 History Ipratropium [place] [Atrovent 0.5 mg IH BIDP PRN 05/24/17 09/14/18 History 0.5mg/2.5mL neb] Loratadine [Claritin] 10 mg PO DAILY 05/24/17 09/14/18 History Mirabegron [Myrbetriq] 50 mg PO DAILY 05/24/17 09/14/18 History Montelukast Sodium [Montelukast 10 mg PO HS 05/24/17 09/14/18 History 10mg Tab] Multivitamin [Multivitamins] 1 each PO DAILY 05/24/17 09/14/18 History Pantoprazole Sodium [Protonix 40mg 40 mg PO DAILY 05/24/17 09/14/18 History tablet] Pilocarpine HCl [Salagen] 7.5 mg PO TIDP PRN 05/24/17 09/14/18 History Polyethylene Glycol 3350 [Miralax 17 gm PO DAILYP PRN 05/24/17 09/14/18 History 17gm Packet] Sertraline HCl [Zoloft] 100 mg PO DAILY 05/24/17 09/14/18 History Guaifenesin/Dextromethorphan 10 ml PO Q4HP PRN #200 liquid 03/30/18 09/14/18 Rx [Guaifenesin-Dm Solution] Potassium Chloride [Micro-K 10mEq 20 meq PO DAILY 05/21/18 09/14/18 History cap] Roflumilast [Daliresp] 500 mcg PO DAILY 05/21/18 09/14/18 History Acetaminophen [Acetaminophen 325mg 325 mg PO Q6HP PRN 05/22/18 09/14/18 History tab] Ondansetron [Ondansetron Odt 8mg 8 mg PO DAILY 05/22/18 09/15/18 History Tab] Trazodone HCl 100 mg PO HS 05/22/18 09/14/18 History Pregabalin [Lyrica 150mg Cap] 150 mg PO HS #30 cap 05/26/18 09/14/18 Rx Acetylcysteine [Mucomyst 20% 4mL 1 ml INHALATION TIDRT 06/10/18 09/14/18 History vial] Sucralfate [Sucralfate 1gm 1 gm PO BID 09/14/18 09/15/18 History Tab] Nadolol [Corgard] 20 mg PO BID 09/15/18 09/15/18 History Tiotropium [place] [Spiriva 1 puff IH DAILY 09/15/18 09/15/18 History 18mcg/puff inhaler] Hydrocortisone 2.5 mg PO HS 09/16/18 09/16/18 History Hydrocortisone 5 mg PO DAILY 09/16/18 09/16/18 History Allergies Allergy/AdvReac Type Severity Reaction Status Date / Time hydrocodone [HYDROCODONE] Allergy Severe dizziness, Verified 03/30/18 01:49 n/v metoclopramide [From REGLAN] Allergy Severe Swelling Verified 03/30/18 01:49 of Lip/Tongue/Throat codeine [CODEINE] Allergy Intermediate dizziness. Verified 03/30/18 01:49 n/v Sulfa (Sulfonamide AdvReac Mild n/v Verified 03/30/18 01:49 Antibiotics) [SULFA (SULFONAMIDE ANTIBIOTICS)] Review of Systems - *Cardiovascular Reports shortness of breath, Denies chest pain - *Respiratory Reports shortness of breath - *Gastrointestinal Denies nausea, Denies vomiting - *Genitourinary Denies blood in urine - *Musculoskeletal Reports joint pain, Reports back pain Exam Vital signs and Labs for Last 24 Hours: Temp Pulse Resp BP Pulse Ox 98.3 F 80 18 111/45 L 100 09/16/18 06:55 09/16/18 10:25 09/16/18 10:00 09/16/18 10:00 09/16/18 10:00 Laboratory Results - last 24 hr 09/14/18 23:52: Specimen Source R radial, O2 % 40%, ABG pH 7.14 L*, ABG pCO2 93.1 H, ABG pO2 54.1 L, ABG HCO3 31.2 H, ABG Total CO2 34.1 H, ABG O2 Saturation 84 L*, ABG Base Excess 2.2, Carlos Test Acceptable, Tidal Volume Bipap 16/8 09/16/18 04:20: Troponin I 0.96 H 09/16/18 06:00: Specimen Source L radial, O2 % 35, ABG pH 7.33 L, ABG pCO2 44.8, ABG pO2 114.5 H, ABG HCO3 23.3, ABG Total CO2 24.7, ABG O2 Saturation 97, ABG Base Excess -2.6 L, Carlos Test Acceptable, Vent Rate 18, Tidal Volume 450, PEEP 5 09/16/18 06:25: WBC 8.8 D, RBC 3.29 L, Hgb 9.5 L D, Hct 28.6 L, MCV 86.9, MCH 28.6, MCHC 32.9, RDW 14.9, Plt Count 244, MPV 6.7 L, Neut % (Auto) 85.6 H, Lymph % (Auto) 9.7 L, [place] % (Auto) 4.5, Eos % (Auto) 0.1, Baso % (Auto) 0.1, Neut # (Auto) 7.5, Lymph # (Auto) 0.9, [place] # (Auto) 0.4, Eos # (Auto) 0.0, Baso # (Auto) 0.0 09/16/18 06:25: Sodium 141, Potassium 4.2 D, Chloride 106, Carbon Dioxide 27, Anion Gap 12.2, BUN 34 H D, Creatinine 1.17 H, Estimated Creat Clear 57, Estimated GFR 46 L, Est GFR ( Amer) 55 L, Glucose 125 H, Calcium 8.1 L 09/16/18 07:35: Troponin I 0.85 H I & O for Last 24 hours: Intake & Output 09/13/18 09/14/18 09/15/18 09/16/18 11:59 11:59 11:59 11:59 Intake Total 1664 / 1664 3436 / 3436 Output Total 998 / 998 692 / 692 Balance 666 / 666 2744 / 2744 Weight 181 lb 182 lb 4 oz 178 lb 9.191 oz Microbiology Reports for the Last 24 Hours: Microbiology 09/14/18 15:53 Sputum - Expectorated Sputum Gram Stain - Final 09/14/18 15:53 Sputum - Expectorated Sputum Sputum Culture - Preliminary - Constitutional Comments: In ICU in bed sleeping. Awakens to verbal or touch. - *Routine HEENT Exam Head: Present: normocephalic Eye: Present: EOMI, PERRL ENT: Present: mucous membranes moist - *Routine Respiratory Exam Present: decreased breath sounds, CTA bilaterally. Absent: accessory muscle use, rales, rhonchi, wheezes - *Routine Cardiovascular Exam Present: RRR. Absent: murmur, gallop, rubs - *Routine Extremities Exam Absent: edema, calf tenderness - *Routine Neurological Exam Present: alert Assessment and Plan (1) Acute and chronic respiratory failure Current visit: Yes Status: Acute Category: Medical Code(s): J96.20 - Acute and chronic respiratory failure, unspecified whether with hypoxia or hypercapnia (2) COPD exacerbation Current visit: Yes Status: Acute Category: Medical Code(s): J44.1 - Chronic obstructive pulmonary disease with (acute) exacerbation (3) IgG subclass deficiency Current visit: Yes Status: Acute Category: Medical Code(s): D80.3 - Selective deficiency of immunoglobulin G [IgG] subclasses (4) Left lower lobe consolidation Current visit: Yes Status: Acute Category: Medical Code(s): J18.1 - Lobar pneumonia, unspecified organism (5) Dependence on supplemental oxygen Current visit: No Status: Acute Category: Medical Code(s): Z99.81 - Dependence on supplemental oxygen (6) Very severe chronic obstructive pulmonary disease Current visit: No Status: Acute Category: Medical Code(s): J44.9 - Chronic obstructive pulmonary disease, unspecified (7) Elevated troponin Current visit: Yes Status: Acute Category: Medical Code(s): R74.8 - Abnormal levels of other serum enzymes (8) Cardiomyopathy Current visit: Yes Status: Acute Category: Medical Code(s): I42.9 - Cardiomyopathy, unspecified - Assessment and plan all Dx Assessment and Plan for all problems:: 1. Epinephrine gtt OK for support but continue to wean as tolerated. 2. Offered cardiac cath but with no evidence of CHF, don't feel this would improve her clinical outcome at this time. Once off pressors and ventilator, would consider addition of ARB and beta liam for treatment of cardiomyopathy and cardiac cath to further evaluate cardiomyopathy.
[2018-09-16 11:13] LABS: Hypochromasia 1+; Lymphocytes % 11 % (10-50); Monocytes % 4 % (2-9); Neutrophils % 80 % (42-76); Total Cells Counted 100
--- NOTE | 2018-09-16 16:00 | Non-Invasive Vascular Report ---
"Venous Exam Indications: 786.05 Shortness of breath. IMPRESSIONS 1. No evidence of deep or superficial vein thrombosis involving the right lower extremity 2. No evidence of deep or superficial vein thrombosis involving the left lower extremity History: Dyspnea. Risk factors: Obese. Pt on ventilator-resp. distress Complete lower extremity venous duplex evaluation. Doppler flow study including spectral analysis, color and hernandez scale imaging. Location: Bedside. Patient status: Inpatient. Tables: Venous flow and imaging: + +-------+ + |Location |Overall|Flow properties | + +-------+ + |Right common femoral |Patent |Normal phasicity; spontaneous; | | | |normal augmentation; compressible| + +-------+ + |Right saphenofemoral junction|Patent |Compressible | + +-------+ + |Right profunda femoral |Patent |Compressible | + +-------+ + |Right femoral |Patent |Normal phasicity; spontaneous; | | | |normal augmentation; | | | |compressible; no reflux | + +-------+ + |Right greater saphenous |Patent |Normal phasicity; spontaneous; | | | |normal augmentation; compressible| + +-------+ + |Right popliteal |Patent |Normal phasicity; spontaneous; | | | |normal augmentation; compressible| + +-------+ + |Right posterior tibial |Patent |Compressible | + +-------+ + |Right peroneal |Patent |Compressible | + +-------+ + |Right gastrocnemius |Patent |Compressible | + +-------+ + |Right soleal |Patent |Compressible | + +-------+ + |Left common femoral |Patent |Normal phasicity; spontaneous; | | | |normal augmentation; compressible| + +-------+ + |Left saphenofemoral junction |Patent |Compressible | + +-------+ + |Left profunda femoral |Patent |Compressible | + +-------+ + |Left femoral |Patent |Normal phasicity; spontaneous; | | | |normal augmentation; compressible| + +-------+ + |Left greater saphenous |Patent |Normal phasicity; spontaneous; | | | |normal augmentation; compressible| + +-------+ + |Left popliteal |Patent |Normal phasicity; spontaneous; | | | |normal augmentation; compressible| + +-------+ + |Left posterior tibial |Patent |Compressible | + +-------+ + |Left peroneal |Patent |Compressible | + +-------+ + |Left gastrocnemius |Patent |Compressible | + +-------+ + |Left soleal |Patent |Compressible | + +-------+ + (Report amended ) Electronically signed by: Carlos Starks [id number]"
--- NOTE | 2018-09-16 17:13 | Consult Report ---
*Admission Date: 09/14/18 *Chief complaint: Acute on chronic respiratory failure *History of present illness: Ms. 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 I have been following her for years and last saw her about 2 months ago in the clinic. At that time, she was still recovering from a severe episode of respiratory distres s related to infection with respiratory syncytial virus. For bronchiectasis, I had her on azithromycin on Mondays, Wednesdays and Fridays and she used a vest at least once a day to help expectorate sputum. While recovering from the most recent hospitalization in a [facility], she fell out of bed and injured her back although not seriously. She has a history of falls and had an open reduction and internal fixation of the left hip in late 2014. On the day I saw her in late June, she was wheezing somewhat and complained of a persistent cough. I ordered a sputum culture which grew normal jun, suggested she use the vest twice daily along with bronchodilators and Mucomyst. She was also using Daliresp which she thought had helped her. She had a bruise over her right upper back where she had fallen but there did not appear to be any significant injury. Although she had not had many recurrent pneumonias, I wanted her to go back to see Dr. Acosta our art editor at for further advice about management of her immunoglobulin deficiency. In the last few days, she seems somewhat more breathless over this last weekend, she became more breathless over a short period of time and was admitted to hospital. She was found to be in acute on chronic hypercapnic respiratory failure and did not respond well to BiPAP and intravenous corticosteroids. Intubation was accomplished and she has been stable on the ventilator. She apparently had no fever or chills and no increase in sputum production. She does not seem to have pneumonia. [facility] History Medical History: Reports:: Anxiety, Chronic Obstructive Pulmonary Disease (COPD), Gastroesophageal Reflux Disease(GERD), Hypertension Denies:: Cancer, Diabetes Mellitus Type 1, Diabetes Mellitus Type 2, MRSA *Have you ever received a pneumonia vaccine?: Yes *Have you received a flu vaccine this season?: Yes Other Medical History: Reports: Anemia Other Surgeries: Yes: Hysterectomy-Total, Other (gallbladder removed) Amputation: No - *Social History Educational Level: Completed High School Smoking Status: Former smoker Tobacco Type: cigarettes #Yrs smoked (if former smoker): 40 Alcohol Intake: never *Occupational Status:: retired Housing: house Household Members: children *Travel in the last 8 weeks: None - Psychiatric History Expresses thoughts of harming self/others: None Suicide Plan Description: No Plan Pschychiatric History:: Reports:: Anxiety Family Hx:: Non-contributory Meds Home Medications Medication Instructions Recorded Confirmed Type Albuterol Sulfate [Albuterol 2.5 mg IH Q6HP PRN 05/24/17 09/14/18 History 0.083% 2.5mg/3mL neb] Albuterol Sulfate [Proair Hfa 2 puffs IH Q4HP PRN 05/24/17 09/14/18 History 90mcg/puff Inh] Aspirin [Aspirin 81mg EC Tab] 81 mg PO DAILY 05/24/17 09/14/18 History Azelastine/Fluticasone [Dymista 1 spray NS BID 05/24/17 09/14/18 History Nasal [place]] Bacillus Coagulans [Probiotic] 1 each PO DAILY 05/24/17 09/14/18 History Budesonide/Formoterol Fumarate 2 puffs IH BID 05/24/17 09/14/18 History [Symbicort 160-4.5 Mcg Inhaler] Bumetanide 2 mg PO DAILY 05/24/17 09/14/18 History Buspirone HCl [Buspar 10mg tablet] 10 mg PO BID 05/24/17 09/14/18 History Cholecalciferol (Vitamin D3) 400 unit PO DAILY 05/24/17 09/14/18 History [Vitamin D3] Ferrous Sulfate [Iron] 325 mg PO DAILY 05/24/17 09/14/18 History Ipratropium [place] [Atrovent 0.5 mg IH BIDP PRN 05/24/17 09/14/18 History 0.5mg/2.5mL neb] Loratadine [Claritin] 10 mg PO DAILY 05/24/17 09/14/18 History Mirabegron [Myrbetriq] 50 mg PO DAILY 05/24/17 09/14/18 History Montelukast Sodium [Montelukast 10 mg PO HS 05/24/17 09/14/18 History 10mg Tab] Multivitamin [Multivitamins] 1 each PO DAILY 05/24/17 09/14/18 History Pantoprazole Sodium [Protonix 40mg 40 mg PO DAILY 05/24/17 09/14/18 History tablet] Pilocarpine HCl [Salagen] 7.5 mg PO TIDP PRN 05/24/17 09/14/18 History Polyethylene Glycol 3350 [Miralax 17 gm PO DAILYP PRN 05/24/17 09/14/18 History 17gm Packet] Sertraline HCl [Zoloft] 100 mg PO DAILY 05/24/17 09/14/18 History Guaifenesin/Dextromethorphan 10 ml PO Q4HP PRN #200 liquid 03/30/18 09/14/18 Rx [Guaifenesin-Dm Solution] Potassium Chloride [Micro-K 10mEq 20 meq PO DAILY 05/21/18 09/14/18 History cap] Roflumilast [Daliresp] 500 mcg PO DAILY 05/21/18 09/14/18 History Acetaminophen [Acetaminophen 325mg 325 mg PO Q6HP PRN 05/22/18 09/14/18 History tab] Ondansetron [Ondansetron Odt 8mg 8 mg PO DAILY 05/22/18 09/15/18 History Tab] Trazodone HCl 100 mg PO HS 05/22/18 09/14/18 History Pregabalin [Lyrica 150mg Cap] 150 mg PO HS #30 cap 05/26/18 09/14/18 Rx Acetylcysteine [Mucomyst 20% 4mL 1 ml INHALATION TIDRT 06/10/18 09/14/18 History vial] Sucralfate [Sucralfate 1gm 1 gm PO BID 09/14/18 09/15/18 History Tab] Nadolol [Corgard] 20 mg PO BID 09/15/18 09/15/18 History Tiotropium [place] [Spiriva 1 puff IH DAILY 09/15/18 09/15/18 History 18mcg/puff inhaler] Hydrocortisone 2.5 mg PO HS 09/16/18 09/16/18 History Hydrocortisone 5 mg PO DAILY 09/16/18 09/16/18 History Allergies Allergy/AdvReac Type Severity Reaction Status Date / Time hydrocodone [HYDROCODONE] Allergy Severe dizziness, Verified 03/30/18 01:49 n/v metoclopramide [From REGLAN] Allergy Severe Swelling Verified 03/30/18 01:49 of Lip/Tongue/Throat codeine [CODEINE] Allergy Intermediate dizziness. Verified 03/30/18 01:49 n/v Sulfa (Sulfonamide AdvReac Mild n/v Verified 03/30/18 01:49 Antibiotics) [SULFA (SULFONAMIDE ANTIBIOTICS)] Exam Vital signs and Labs for Last 24 Hours: Temp Pulse Resp BP Pulse Ox 98.8 F 60 18 101/51 L 100 09/16/18 11:00 09/16/18 16:00 09/16/18 14:34 09/16/18 14:00 09/16/18 14:34 Laboratory Results - last 24 hr 09/14/18 23:52: Specimen Source R radial, O2 % 40%, ABG pH 7.14 L*, ABG pCO2 93.1 H, ABG pO2 54.1 L, ABG HCO3 31.2 H, ABG Total CO2 34.1 H, ABG O2 Saturation 84 L*, ABG Base Excess 2.2, [place] Test Acceptable, Tidal Volume Bipap 16/8 09/16/18 04:20: Troponin I 0.96 H 09/16/18 06:00: Specimen Source L radial, O2 % 35, ABG pH 7.33 L, ABG pCO2 44.8, ABG pO2 114.5 H, ABG HCO3 23.3, ABG Total CO2 24.7, ABG O2 Saturation 97, ABG Base Excess -2.6 L, Carlos Test Acceptable, Vent Rate 18, Tidal Volume 450, PEEP 5 09/16/18 06:25: WBC 8.8 D, RBC 3.29 L, Hgb 9.5 L D, Hct 28.6 L, MCV 86.9, MCH 28.6, MCHC 32.9, RDW 14.9, Plt Count 244, MPV 6.7 L, Neut % (Auto) 85.6 H, Lymph % (Auto) 9.7 L, [place] % (Auto) 4.5, Eos % (Auto) 0.1, Baso % (Auto) 0.1, Neut # (Auto) 7.5, Lymph # (Auto) 0.9, [place] # (Auto) 0.4, Eos # (Auto) 0.0, Baso # (Auto) 0.0, Total Counted 100, Neutrophils % (Manual) 80 H, Band Neutrophils % 5.0, Lymphocytes % (Manual) 11, Monocytes % (Manual) 4, Platelet Estimate Normal, RBC Morphology Not Reportable, Hypochromasia 1+ 09/16/18 06:25: Sodium 141, Potassium 4.2 D, Chloride 106, Carbon Dioxide 27, Anion Gap 12.2, BUN 34 H D, Creatinine 1.17 H, Estimated Creat Clear 57, Estimated GFR 46 L, Est GFR ( Amer) 55 L, Glucose 125 H, Calcium 8.1 L 09/16/18 06:25: D-Dimer 230 09/16/18 07:35: Troponin I 0.85 H I & O for Last 24 hours: Intake & Output 09/13/18 09/14/18 09/15/18 09/16/18 23:59 23:59 23:59 23:59 Intake Total 50 / 50 3308 / 3481 2237 / 2237 Output Total 400 / 400 805 / 842 754 / 754 Balance -350 / -350 2503 / 2639 1483 / 1483 Weight 82.667 kg 82.667 kg 81 kg Microbiology Reports for the Last 24 Hours: Microbiology 09/14/18 12:15 Blood Blood Culture - Preliminary NO GROWTH AFTER 48 HOURS 09/14/18 11:51 Blood Blood Culture - Preliminary NO GROWTH AFTER 48 HOURS 09/14/18 15:53 Sputum - Expectorated Sputum Gram Stain - Final 09/14/18 15:53 Sputum - Expectorated Sputum Sputum Culture - Preliminary Narrative: On physical examination, Ms. Ruiz is a chronically ill-appearing woman who is awake and alert and able to respond somewhat to questions. She is intubated and the tube appears to be in good position. Chest: Increased AP diameter; good breath sounds bilaterally with a prolonged expiratory phase of ventilation and faint end expiratory wheezes. Heart: Regular rhythm Extremities: Trace ankle edema skin: No rash Internal Medicine - CN: Reslt - Labs CBC & Chem 7: 09/16/18 06:25 09/16/18 06:25 Labs: Short CBC 09/16/18 Range/Units 06:25 WBC 8.8 D (4.8-10.8) K/mm3 Hgb 9.5 L D (12.2-16.2) g/dL Hct 28.6 L (37.0-47.0) % Plt Count 244 (142-424) K/mm3 BMP 09/16/18 06:25 Sodium 141 Potassium 4.2 D Chloride 106 Carbon Dioxide 27 BUN 34 H D Creatinine 1.17 H Glucose 125 H Calcium 8.1 L Cardiac Enzymes 09/16/18 09/16/18 Range/Units 04:20 07:35 Troponin I 0.96 H 0.85 H (0.00-0.06) ng/ml - ABG Interpretation ABG results: 09/14/18 09/14/18 09/15/18 21:52 23:52 03:11 ABG pH 7.19 L* 7.14 L* 7.12 L* ABG pCO2 90.4 H 93.1 H 96.7 H ABG pO2 115.8 H 54.1 L 67.0 L ABG HCO3 33.4 H 31.2 H 30.7 H ABG Total CO2 36.2 H 34.1 H 33.6 H ABG O2 Saturation 98 84 L* 90 ABG Base Excess 5.2 H 2.2 1.3 09/15/18 09/16/18 06:34 06:00 ABG pH 7.36 7.33 L ABG pCO2 45.6 H 44.8 ABG pO2 148.1 H 114.5 H ABG HCO3 25.0 23.3 ABG Total CO2 26.4 24.7 ABG O2 Saturation 99 97 ABG Base Excess -0.6 -2.6 L When she was admitted, she was in acute hypercapnic respiratory failure and did not respond to BiPAP. After intubation, her CO2 was brought back toward normal and now she has mild respiratory acidosis. - Impressions I personally reviewed her x-rays and see no evidence of pneumothorax, atelectasis or pneumonia or pleural effusion. There is evidence of air trapping consistent with COPD. Assessment and Plan (1) Acute and chronic respiratory failure Current visit: Yes Status: Acute Category: Medical Code(s): J96.20 - Acute and chronic respiratory failure, unspecified whether with hypoxia or hypercapnia (2) COPD exacerbation Current visit: Yes Status: Acute Category: Medical Code(s): J44.1 - Chronic obstructive pulmonary disease with (acute) exacerbation (3) IgG subclass deficiency Current visit: Yes Status: Acute Category: Medical Code(s): D80.3 - Selective deficiency of immunoglobulin G [IgG] subclasses (4) Left lower lobe consolidation Current visit: Yes Status: Acute Category: Medical Code(s): J18.1 - Lobar pneumonia, unspecified organism (5) Dependence on supplemental oxygen Current visit: No Status: Acute Category: Medical Code(s): Z99.81 - Dependence on supplemental oxygen (6) Very severe chronic obstructive pulmonary disease Current visit: No Status: Acute Category: Medical Code(s): J44.9 - Chronic obstructive pulmonary disease, unspecified (7) Elevated troponin Current visit: Yes Status: Acute Category: Medical Code(s): R74.8 - Abnormal levels of other serum enzymes (8) Cardiomyopathy Current visit: Yes Status: Acute Category: Medical Code(s): I42.9 - Cardiomyopathy, unspecified - Assessment and plan all Dx Assessment and Plan for all problems:: Ms. Ruiz has severe chronic obstructive pulmonary disease and an rather suddenly developed acute on chronic, hypercapnic respiratory failure. I asked for venous duplexes of the lower extremities and a d-dimer to exclude pulmonary embolism (unlikely in my opinion) and these were negative. She is wheezing and may be suffering respiratory failure related to a COPD exacerbation. The pollen counts have been quite high and there is been quite the change in weather. Hopefully, she will respond to intravenous corticosteroids over time. Her ventilator settings seem good at present and I would begin a ventilator separation protocol. I am raising the possibility that the increase in morphine at her most recent interventional pain visit in early July may have had some cumulative effect leading to this event as well and I have spoken to Dr. Ford about this so a pain management person could help investigate. I will follow-up with her in clinic and please do not hesitate to call me at any time. Thank you for the opportunity to participate in Ms. Ruiz's care.
[2018-09-16 18:39] LABS: Coronavirus 229E Not Detected (NotDetected); Coronavirus NL63 Not Detected (NotDetected); Coronavirus OC43 Not Detected (NotDetected); Coronovirus HKU1,PCR Not Detected (NotDetected)
--- NOTE | 2018-09-16 21:43 | Cardiology Report ---
PROCEDURE: 2-D M-mode and color Doppler study INDICATIONS FOR THE TEST: Chest pain COPDX Heart Murmur Tobacco SmokingEX Palpitations Fatigue Syncope Edema HypertensionXDiabetes Mellitus Rheumatic Fever SOB MANE Obesity Hyperlipidemia Family History HD Additional History O2 DEPENDENT COPD END STAGE,ON MECH VENT,ELEVATED TROPONINS TDS ON VENT ,COPD PATIENT INFORMATION HEIGHT: 60 WEIGHT:178 GENDER: Female B/P:137/59 2-D/M-MODE INTERPRETATION: 2-D MEASUREMENTS OBSERVED VALUES IN CMS Right Ventricular Dimension (RVDd) 3.0 Interventricular Septum (Thickness)(IVsd) .9 Left Ventricular Internal Dimensions(LVIDd) 5.2 Left Ventricular Posterior Wall (Thickness)(LVPWd) 1.0 Aortic Root 3.3 Aortic Cusp Separation 1.3 Left Atrial Dimensions (LAD) 2.8 2D 1. Technically very difficult study because of the patient's factor and poor acoustic windows 2. Left atrium is mildly enlarged, left ventricle is mildly dilated, there is severely reduced left ventricular systolic function, visually estimated ejection fraction of 20-25%, there is marked hypokinesis involving mid to distal septum, anterior, anterior apical, apical and inferior apical wall. 3. The right atrium and right ventricle are mildly enlarged with normal contractility. 4. The aortic valve is thickened and calcified leaflet continue to display mobility. 5. The mitral and tricuspid valve leaflets are minimally thickened. 6. The pulmonic valve is poorly visualized. 7. No significant pericardial effusion noted. DOPPLER INTERROGATION: Doppler interrogation of the aortic, mitral and tricuspid valvular presence of mild mitral and tricuspid regurgitation, tricuspid regurgitation jet velocity is inadequate for calculation of the right ventricular systolic pressure, Doppler evidence of impaired relaxation seen. There was no tissue Doppler performed. CONCLUSION: 1. Biatrial enlargement, mildly dilated left ventricle, severely reduced left ventricular systolic function, visually estimated ejection fraction approximately 20-25% with multiple segmental wall motion abnormality described above, Doppler evidence of grade relaxation seen, there was no tissue Doppler performed. 2. Mildly enlarged right ventricle with normal contractility. 3. Mild mitral and tricuspid regurgitation 4. No significant pericardial effusion noted.
[2018-09-17 00:35] LABS: Microscopic, Urine URINE MICROSCOPIC (MICROSCOPIC)
[2018-09-17 00:49] LABS: Appearance,Urine CLEAR (Clear); Blood, Urine 1+ (Negative); Color,Urine YELLOW (Yellow); Glucose,Urine (UA) Negative (Negative); Ketones,Urine TRACE (Negative); Leukocyte Esterase,Urine Negative (Negative); Protein,Urine Negative (Negative); Urobilinogen,Urine 0.2 EU/dl (0.2)
[2018-09-17 01:09] LABS: Bacteria,Urine 1+ /lpf; Bilirubin,Urine Negative (Negative); Mucus,Urine 1+ /lpf; Uric Acid Crystals,Urine 2+ /lpf; WBC,Urine Occasional #/hpf (0-3)
[2018-09-17 05:52] LABS: ABG Base Excess 0.9 mmol/L (-2.4-2.3); ABG HCO3 25.3 mmhg (22.0-26.0); ABG Oxygen Saturation 96 % (90-100); ABG PCO2 39.3 mmhg (35.0-45.0); ABG PH 7.43 mmol/L (7.35-7.45); ABG TCO2 26.5 mmhg (23-27)
[2018-09-17 05:56] LABS: Oxygen 30 %; PEEP 5; Tidal Volume 450
[2018-09-17 05:57] LABS: Allen's Test Patient Unable
[2018-09-17 06:45] LABS: Eosinophils % 0.1 % (0.1-12.0); Hematocrit 26.8 % (37.0-47.0); Lymphocytes # 0.8 K/mm3 (0.7-4.5); Mean Corpuscular HGB Conc 33.6 g/dL (31.8-35.4); Mean Corpuscular Hemoglobin 28.9 pg (27.0-31.2); Mean Platelet Volume 6.5 fl (7.4-10.4); Monocytes # 0.2 K/mm3 (0.1-1.0); Monocytes % 5.3 % (1.7-9.3); Neutrophils # 3.1 K/mm3 (1.8-7.8); Neutrophils % 75.5 % (37.0-80.0); Platelet Count 187 K/mm3 (142-424); Red Blood Count 3.11 M/mm3 (4.20-5.40); Red Cell Distribution Width 14.6 % (11.5-17.5); White Blood Count 4.1 K/mm3 (4.8-10.8)
[2018-09-17 06:58] LABS: Anion Gap 11.9 mEq/L (5-15); Calcium 8.5 mg/dL (8.5-10.1); Potassium 3.9 mmoL/L (3.5-5.1)
--- NOTE | 2018-09-17 07:50 | Progress Note ---
Internal Medicine - PN: Subj *Date: 09/17/18 *Time: 07:46 Interval history: Patient is awake this morning. 2 spontaneous breathing trials were attempted overnight and did not succeed. Respiratory therapy has gradually been turning down the patient's right on the ventilator where she is set to SIMV. Patient admits she is scared. Exam Vital signs and Labs for Last 24 Hours: Temp Pulse Resp BP Pulse Ox 97.6 F 70 12 139/57 L 100 09/17/18 06:57 09/17/18 06:57 09/17/18 06:57 09/17/18 06:57 09/17/18 06:57 Laboratory Results - last 24 hr 09/16/18 06:25: Hgb 9.5 L D, Total Counted 100, Neutrophils % (Manual) 80 H, Band Neutrophils % 5.0, Lymphocytes % (Manual) 11, Monocytes % (Manual) 4, Platelet Estimate Normal, RBC Morphology Not Reportable, Hypochromasia 1+ 09/16/18 06:25: D-Dimer 230 09/16/18 07:35: Troponin I 0.85 H 09/16/18 15:00: Chlamy pneumoniae PCR Not detected, Adenovirus (PCR) Not detected, B. pertussis DNA (PCR) Not detected, Coronavirus OC43 (PCR) Not detected, Coronavirus HKU1 (PCR) Not detected, Coronavirus 229E (PCR) Not detected, Coronavirus NL63 (PCR) Not detected, Human Metapneumovir PCR Not det ected, Influenza A (H1) PCR Not detected, Influ A (H1N1/09) PCR Not detected, Influenza A (H3) PCR Not detected, Influenza Type A (PCR) Not detected, Influenza Type B (PCR) Not detected, M. pneumoniae (PCR) Not detected, Parainfluenza 1 (PCR) Not detected, Parainfluenza 2 (PCR) Not detected, Parainfluenza 3 (PCR) Not detected, Parainfluenza 4 (PCR) Not detected, RSV (PCR) Not detected, Entero/Rhino (PCR) Not detected 09/17/18 00:00: Urine Color Yellow, Urine Appearance Clear, Urine pH 6.0, Ur Specific [place] 1.020, Urine Protein Negative, Urine Glucose (UA) Negative, Urine Ketones Trace, Urine Blood 1+, Urine Nitrate Negative, Urine Bilirubin Negative, Urine Urobilinogen 0.2, Ur Leukocyte Esterase Negative, Urine RBC 3-5, Urine WBC Occasional, Uric Acid Crystals 2+, Urine Bacteria 1+, Urine Mucus 1+ 09/17/18 06:00: Specimen Source Right radial, O2 % 30, ABG pH 7.43, ABG pCO2 39.3, ABG pO2 84.0, ABG HCO3 25.3, ABG Total CO2 26.5, ABG O2 Saturation 96, ABG Base Excess 0.9, Carlos Test Patient unable, Vent Rate 18, Tidal Volume 450, PEEP 5 09/17/18 06:00: WBC 4.1 L D, RBC 3.11 L, Hgb 9.0 L, Hct 26.8 L, MCV 86.0, MCH 28.9, MCHC 33.6, RDW 14.6, Plt Count 187, MPV 6.5 L, Neut % (Auto) 75.5, Lymph % (Auto) 19.0, [place] % (Auto) 5.3, Eos % (Auto) 0.1, Baso % (Auto) 0.0 L, Neut # (Auto) 3.1, Lymph # (Auto) 0.8, [place] # (Auto) 0.2, Eos # (Auto) 0.0, Baso # (Auto) 0.0 09/17/18 06:00: Sodium 143, Potassium 3.9, Chloride 107, Carbon Dioxide 28, Anion Gap 11.9, BUN 36 H, Creatinine 0.92 D, Estimated Creat Clear 67, Estimated GFR 60, Est GFR ( Amer) 73 D, Glucose 104, Calcium 8.5 I & O for Last 24 hours: Intake & Output 09/14/18 09/15/18 09/16/18 09/17/18 11:59 11:59 11:59 11:59 Intake Total 1664 / 1664 3452 / 3462 897 / 897 Output Total 998 / 998 762 / 790 805 / 805 Balance 666 / 666 2690 / 2672 92 / 92 Weight 181 lb 182 lb 4 oz 178 lb 9.191 oz 177 lb 14.609 oz Microbiology Reports for the Last 24 Hours: Microbiology 09/14/18 15:53 Sputum - Expectorated Sputum Gram Stain - Final 09/14/18 15:53 Sputum - Expectorated Sputum Sputum Culture - Preliminary Gram Positive Cocci 09/14/18 12:15 Blood Blood Culture - Preliminary NO GROWTH AFTER 48 HOURS 09/14/18 11:51 Blood Blood Culture - Preliminary NO GROWTH AFTER 48 HOURS Narrative: Patient looks very comfortable on the ventilator. There is no increased work of breathing. She appears slightly anxious. Lungs have only a faint expiratory wheeze on the left. Heart rate is regular. Abdomen is soft. Extremities reveal no edema. Assessment and Plan (1) Acute and chronic respiratory failure Current visit: Yes Status: Acute Category: Medical Code(s): J96.20 - Acute and chronic respiratory failure, unspecified whether with hypoxia or hypercapnia (2) COPD exacerbation Current visit: Yes Status: Acute Category: Medical Code(s): J44.1 - Chronic obstructive pulmonary disease with (acute) exacerbation (3) IgG subclass deficiency Current visit: Yes Status: Acute Category: Medical Code(s): D80.3 - Selective deficiency of immunoglobulin G [IgG] subclasses (4) Left lower lobe consolidation Current visit: Yes Status: Acute Category: Medical Code(s): J18.1 - Lobar pneumonia, unspecified organism (5) Dependence on supplemental oxygen Current visit: No Status: Acute Category: Medical Code(s): Z99.81 - Dependence on supplemental oxygen (6) Very severe chronic obstructive pulmonary disease Current visit: No Status: Acute Category: Medical Code(s): J44.9 - Chronic obstructive pulmonary disease, unspecified (7) Elevated troponin Current visit: Yes Status: Acute Category: Medical Code(s): R74.8 - Abnormal levels of other serum enzymes (8) Cardiomyopathy Current visit: Yes Status: Acute Category: Medical Code(s): I42.9 - Cardiomyopathy, unspecified - Assessment and plan all Dx Assessment and Plan for all problems:: Patient will undergo spontaneous breathing trial this morning with CPAP and pressure support of 5. Patient is still on a waiting list for transfer to . The most significant obstacle I believe to getting her extubated is her underlying anxiety.
--- NOTE | 2018-09-17 10:14 | Progress Note ---
Subjective Date: 09/17/18 Time: 09:45 Principal diagnosis: Acute on chronic respiratory failure, shortness of breath, COPD Interval history: This is a 72-year-old white female who was admitted to the hospital for acute on chronic respiratory failure. The patient remains intubated today. She has been off of sedation and Dr. Ford has been attempting to wean the patient off of the ventilator on SIMV. They have attempted this 3 times and have been unsuccessful. The patient has now been restarted on a propofol drip because of her significant anxiety. She has been switched back over to assist control. This morning she is able to answer my questions by nodding her head yes and no or writing the answers down on a clipboard. She denies any chest pain. She is complaining of shortness of breath and having difficulty breathing. She is very anxious this morning. She denies any fever, chills, nausea, vomiting, diarrhea. The patient does have LV dysfunction with an EF of 35%. The patient does have severe underlying COPD. She is still currently awaiting transfer to [facility] however there are no beds available at this time. Exam Vital signs and Labs for Last 24 Hours: Temp Pulse Resp BP Pulse Ox 97.6 F 80 12 139/57 L 100 09/17/18 06:57 09/17/18 08:00 09/17/18 06:57 09/17/18 06:57 09/17/18 08:00 Laboratory Results - last 24 hr 09/16/18 06:25: Total Counted 100, Neutrophils % (Manual) 80 H, Band Neutrophils % 5.0, Lymphocytes % (Manual) 11, Monocytes % (Manual) 4, Platelet Estimate Normal, RBC Morphology Not Reportable, Hypochromasia 1+ 09/16/18 06:25: D-Dimer 230 09/16/18 15:00: Chlamy pneumoniae PCR Not detected, Adenovirus (PCR) Not detected, B. pertussis DNA (PCR) Not detected, Coronavirus OC43 (PCR) Not detected, Coronavirus HKU1 (PCR) Not detected, Coronavirus 229E (PCR) Not detected, Coronavirus NL63 (PCR) Not detected, Human Metapneumovir PCR Not detected, Influenza A (H1) PCR Not detected, Influ A (H1N1/09) PCR Not detected, Influenza A (H3) PCR Not detected, Influenza Type A (PCR) Not detected, Influenza Type B (PCR) Not detected, M. pneumoniae (PCR) Not detected, Parainfluenza 1 (PCR) Not detected, Parainfluenza 2 (PCR) Not detected, Parainfluenza 3 (PCR) Not detected, Parainfluenza 4 (PCR) Not detected, RSV (PCR) Not detected, Entero/Rhino (PCR) Not detected 09/17/18 00:00: Urine Color Yellow, Urine Appearance Clear, Urine pH 6.0, Ur Specific [place] 1.020, Urine Protein Negative, Urine Glucose (UA) Negative, Urine Ketones Trace, Urine Blood 1+, Urine Nitrate Negative, Urine Bilirubin Negative, Urine Urobilinogen 0.2, Ur Leukocyte Esterase Negative, Urine RBC 3-5, Urine WBC Occasional, Uric Acid Crystals 2+, Urine Bacteria 1+, Urine Mucus 1+ 09/17/18 06:00: Specimen Source Right radial, O2 % 30, ABG pH 7.43, ABG pCO2 39.3, ABG pO2 84.0, ABG HCO3 25.3, ABG Total CO2 26.5, ABG O2 Saturation 96, ABG Base Excess 0.9, Carlos Test Patient unable, Vent Rate 18, Tidal Volume 450, PEEP 5 09/17/18 06:00: WBC 4.1 L D, RBC 3.11 L, Hgb 9.0 L, Hct 26.8 L, MCV 86.0, MCH 28.9, MCHC 33.6, RDW 14.6, Plt Count 187, MPV 6.5 L, Neut % (Auto) 75.5, Lymph % (Auto) 19.0, [place] % (Auto) 5.3, Eos % (Auto) 0.1, Baso % (Auto) 0.0 L, Neut # (Auto) 3.1, Lymph # (Auto) 0.8, [place] # (Auto) 0.2, Eos # (Auto) 0.0, Baso # (Auto) 0.0 09/17/18 06:00: Sodium 143, Potassium 3.9, Chloride 107, Carbon Dioxide 28, Anion Gap 11.9, BUN 36 H, Creatinine 0.92 D, Estimated Creat Clear 67, Estimate d GFR 60, Est GFR ( Amer) 73 D, Glucose 104, Calcium 8.5 I & O for Last 24 hours: Intake & Output 09/14/18 09/15/18 09/16/18 09/17/18 23:59 23:59 23:59 23:59 Intake Total 50 / 50 3308 / 3481 2534 / 2556 182 / 182 Output Total 400 / 400 805 / 842 1070 / 1120 425 / 425 Balance -350 / -350 2503 / 2639 1464 / 1436 -243 / -243 Weight 182 lb 4 oz 182 lb 4 oz 178 lb 9.191 oz 177 lb 14.609 oz Microbiology Reports for the Last 24 Hours: Microbiology 09/14/18 15:53 Sputum - Expectorated Sputum Gram Stain - Final 09/14/18 15:53 Sputum - Expectorated Sputum Sputum Culture - Preliminary Gram Positive Cocci 09/14/18 12:15 Blood Blood Culture - Preliminary NO GROWTH AFTER 48 HOURS 09/14/18 11:51 Blood Blood Culture - Preliminary NO GROWTH AFTER 48 HOURS Narrative: Major strip is sinus rhythm with a rate of 77. She does have inverted T waves. - Constitutional mild distress, morbidly obese, chronically ill appearing - *Routine HEENT Exam Head: Present: normocephalic, atraumatic Eye: Present: EOMI, PERRL ENT: Present: mucous membranes moist - *Routine Neck Exam Present: supple, full ROM. Absent: JVD, carotid bruit, lymphadenopathy - *Routine Respiratory Exam Present: decreased breath sounds, wheezes, distant breath sounds - *Routine Cardiovascular Exam Present: RRR, Normal S1, Normal S2. Absent: murmur - *Routine Abdominal Exam Present: soft, normoactive bowel sounds. Absent: tenderness, distended - *Routine Extremities Exam Present: edema, pulses intact, normal capillary refill. Absent: cyanosis, clubbing - *Routine Skin Exam Present: intact, warm. Absent: erythema, rash - *Routine Neurological Exam Present: alert, oriented X3 - Detailed Eye Exam Eyelids: Left normal inspection Progress Note: A&P (1) Non-STEMI (non-ST elevated myocardial infarction) Status: Acute Current Visit: Yes (2) Acute and chronic respiratory failure Status: Acute Current Visit: Yes (3) IgG subclass deficiency Status: Acute Current Visit: Yes (4) Left lower lobe consolidation Status: Acute Current Visit: Yes (5) Dependence on supplemental oxygen Status: Acute Current Visit: No (6) Very severe chronic obstructive pulmonary disease Status: Acute Current Visit: No (7) Elevated troponin Status: Acute Current Visit: Yes (8) Cardiomyopathy Status: Acute Current Visit: Yes (9) Acute systolic heart failure Status: Acute Current Visit: Yes Assessment and Plan for All Diagnoses:: Plan: 1. The patient was admitted with shortness of breath. She is in acute on chronic respiratory failure. The patient does have severe COPD and due to her acute on chronic respiratory failure she has been intubated and is on the ventilator. She has had 3 attempts at weaning her off of the ventilator on SIMV which have all 3 been unsuccessful. The patient's propofol drip was turned off. She has become very anxious and Dr. Ford has restarted her propofol drip and the patient has been switched back to assist control. 2. Given the patient's severe underlying COPD SIMV may not be the best setting to try weaning with her. She may tolerate weaning on assist control much better. We will go ahead and re-stop her propofol. We will put her on assist control with a rate of 4 and attempt to wean her on assist control down to a CPAP trial and hopefully be able to extubate the patient. Dr. Cameron has talked to Dr. Ford about this weaning trial and he is agreeable in trying this. 3. The patient is still awaiting transfer to [facility] once a bed becomes available. 4. The patient does have an elevated troponin. Once she is weaned off of the ventilator and extubated, she does need to have a left cardiac catheterization done given her non-STEMI. However this will be placed on hold until she is off of the ventilator and extubated. 5. Her blood pressure is somewhat elevated this morning. However when she was turned back to assist control her blood pressure did start to improve. 6. Her LDL goal is less than 55. 7. The patient does have cardiomyopathy. Her ejection fraction is around 35%. She will need to be on appropriate heart failure medications prior to discharge home. 8. She did have a left lower lobe pneumonia. This is being treated per Dr. Jose jacobs. Will defer. 9. The goal for today is to try to get the patient weaned off of the ventilator and extubated. 10. Further recommendations will be made pending the patient's response to treatment. thank you for the opportunity to help participate in the care of this patient.
[2018-09-17 14:54] LABS: ABG Base Excess 1.2 mmol/L (-2.4-2.3); ABG HCO3 26.7 mmhg (22.0-26.0); ABG Oxygen Saturation 98 % (90-100); ABG PCO2 48.4 mmhg (35.0-45.0); ABG PH 7.36 mmol/L (7.35-7.45); ABG PO2 129.5 mmhg (80-100); ABG TCO2 28.2 mmhg (23-27)
[2018-09-17 14:56] LABS: Allen's Test ACCEPTABLE; Oxygen 50% %
[2018-09-18 06:41] LABS: Basophils % 0.1 % (0.1-2.0); Eosinophils % 0.1 % (0.1-12.0); Hematocrit 28.3 % (37.0-47.0); Hemoglobin 9.5 g/dL (12.2-16.2); Lymphocytes # 1.3 K/mm3 (0.7-4.5); Mean Corpuscular HGB Conc 33.6 g/dL (31.8-35.4); Mean Corpuscular Hemoglobin 28.7 pg (27.0-31.2); Mean Corpuscular Volume 85.3 fl (81-99); Mean Platelet Volume 6.5 fl (7.4-10.4); Monocytes # 0.3 K/mm3 (0.1-1.0); Monocytes % 5.3 % (1.7-9.3); Neutrophils # 4.4 K/mm3 (1.8-7.8); Neutrophils % 73.5 % (37.0-80.0); Platelet Count 206 K/mm3 (142-424); Red Blood Count 3.32 M/mm3 (4.20-5.40); Red Cell Distribution Width 14.3 % (11.5-17.5)
--- NOTE | 2018-09-18 07:04 | Progress Note ---
Internal Medicine - PN: Subj *Date: 09/18/18 *Time: 07:01 Interval history: Patient was extubated yesterday morning. Since that time she is continuing complained of shortness of breath. ABG performed a few hours after extubation revealed a normal pH with near normal PCO2 levels. Oxygen was actually weaned after blood gas was drawn. Patient remains on Vapotherm with an FiO2 of 28%. She admits she is very afraid of her condition worsening. Exam Vital signs and Labs for Last 24 Hours: Temp Pulse Resp BP Pulse Ox 98.0 F 57 L 18 149/66 H 100 09/18/18 04:00 09/18/18 06:52 09/18/18 06:00 09/18/18 06:00 09/18/18 06:52 Laboratory Results - last 24 hr 09/17/18 06:00: Sodium 143, Potassium 3.9, Chloride 107, Carbon Dioxide 28, Anion Gap 11.9, BUN 36 H, Creatinine 0.92 D, Estimated Creat Clear 67, Estimated GFR 60, Est GFR ( Amer) 73 D, Glucose 104, Calcium 8.5 09/17/18 13:55: Specimen Source R radial, O2 % 50%, ABG pH 7.36, ABG pCO2 48.4 H , ABG pO2 129.5 H, ABG HCO3 26.7 H, ABG Total CO2 28.2 H, ABG O2 Saturation 98, ABG Base Excess 1.2, Carlos Test Acceptable 09/18/18 06:15: WBC 6.0 D, RBC 3.32 L, Hgb 9.5 L, Hct 28.3 L, MCV 85.3, MCH 28.7, MCHC 33.6, RDW 14.3, Plt Count 206, MPV 6.5 L, Neut % (Auto) 73.5, Lymph % (Auto) 21.0, [place] % (Auto) 5.3, Eos % (Auto) 0.1, Baso % (Auto) 0.1, Neut # (Auto) 4.4, Lymph # (Auto) 1.3, [place] # (Auto) 0.3, Eos # (Auto) 0.0, Baso # (Auto) 0.0 I & O for Last 24 hours: Intake & Output 09/15/18 09/16/18 09/17/18 09/18/18 11:59 11:59 11:59 11:59 Intake Total 1664 / 1664 3452 / 3462 958 / 958 320 / 320 Output Total 998 / 998 762 / 790 1005 / 1045 807 / 807 Balance 666 / 666 2690 / 2672 -47 / -87 -487 / -487 Weight 182 lb 4 oz 178 lb 9.191 oz 177 lb 14.609 oz 175 lb 4.28 oz Microbiology Reports for the Last 24 Hours: Microbiology 09/14/18 15:53 Sputum - Expectorated Sputum Gram Stain - Final 09/14/18 15:53 Sputum - Expectorated Sputum Sputum Culture - Preliminary Staphylococcus aureus Narrative: Patient appears anxious. The longer the interview went on she became tremulous and tachypneic. Oropharynx is dry. Lungs have distant breath sounds with poor inspiratory effort. Faint end expiratory wheezing was heard on the right. No rhonchi or rales. Heart has a regular rate and rhythm. Sputum culture has grown MRSA Assessment and Plan (1) Non-STEMI (non-ST elevated myocardial infarction) Current visit: Yes Status: Acute Category: Medical Code(s): I21.4 - Non-ST elevation (NSTEMI) myocardial infarction (2) Acute and chronic respiratory failure Current visit: Yes Status: Acute Category: Medical Code(s): J96.20 - Acute and chronic respiratory failure, unspecified whether with hypoxia or hypercapnia (3) IgG subclass deficiency Current visit: Yes Status: Acute Category: Medical Code(s): D80.3 - Selective deficiency of immunoglobulin G [IgG] subclasses (4) Left lower lobe consolidation Current visit: Yes Status: Ruled-out Category: Medical Code(s): J18.1 - Lobar pneumonia, unspecified organism (5) Dependence on supplemental oxygen Current visit: No Status: Acute Category: Medical Code(s): Z99.81 - Dependence on supplemental oxygen (6) Very severe chronic obstructive pulmonary disease Current visit: No Status: Acute Category: Medical Code(s): J44.9 - Chronic obstructive pulmonary disease, unspecified (7) Elevated troponin Current visit: Yes Status: Acute Category: Medical Code(s): R74.8 - Abnormal levels of other serum enzymes (8) Cardiomyopathy Current visit: Yes Status: Acute Category: Medical Code(s): I42.9 - Cardiomyopathy, unspecified (9) Acute systolic heart failure Current visit: Yes Status: Acute Category: Medical Code(s): I50.21 - Acute systolic (congestive) heart failure (10) MRSA (methicillin resistant staph aureus) culture positive Current visit: Yes Status: Acute Category: Medical Code(s): Z22.322 - Carrier or suspected carrier of Methicillin resistant Staphylococcus aureus - Assessment and plan all Dx Assessment and Plan for all problems:: 1. Out of bed to chair today 2. Continue to wean oxygen 3. Start NEO inhibitor for patient's elevated blood pressure along with her home dose of Bumex. Hold beta-liam at this time due to bradycardia
[2018-09-18 07:07] LABS: Anion Gap 8.9 mEq/L (5-15); Calcium 8.4 mg/dL (8.5-10.1); Potassium 3.9 mmoL/L (3.5-5.1)
--- NOTE | 2018-09-18 08:41 | Progress Note ---
Subjective Date: 09/18/18 Time: 08:38 Principal diagnosis: Acute on chronic respiratory failure, shortness of breath, COPD Interval history: 72-year-old white female in ICU. Patient extubated yesterday and has continued on Vapotherm overnight with brief use of BiPAP last night. Chest x-ray yesterday shows no evidence of infiltrate. Significant anxiety noted due to the patient's chronic severe respiratory problems. She does relate intermittent left-sided chest discomfort but is unable to further describe it. 1 of the patient's daughter is in the room this morning. Blood pressure remained stable off of pressor agents. Heart rates in the 50-60 range. Exam Vital signs and Labs for Last 24 Hours: Temp Pulse Resp BP Pulse Ox 97.8 F 60 18 140/63 100 09/18/18 07:40 09/18/18 07:40 09/18/18 07:40 09/18/18 07:40 09/18/18 07:40 Laboratory Results - last 24 hr 09/17/18 13:55: Specimen Source R radial, O2 % 50%, ABG pH 7.36, ABG pCO2 48.4 H , ABG pO2 129.5 H, ABG HCO3 26.7 H, ABG Total CO2 28.2 H, ABG O2 Saturation 98, ABG Base Excess 1.2, Carlos Test Acceptable 09/18/18 06:15: WBC 6.0 D, RBC 3.32 L, Hgb 9.5 L, Hct 28.3 L, MCV 85.3, MCH 28.7, MCHC 33.6, RDW 14.3, Plt Count 206, MPV 6.5 L, Neut % (Auto) 73.5, Lymph % (Auto) 21.0, [place] % (Auto) 5.3, Eos % (Auto) 0.1, Baso % (Auto) 0.1, Neut # (Auto) 4.4, Lymph # (Auto) 1.3, Power # (Auto) 0.3, Eos # (Auto) 0.0, Baso # (Auto) 0.0 09/18/18 06:15: Sodium 142, Potassium 3.9, Chloride 107, Carbon Dioxide 30, Anion Gap 8.9, BUN 26 H D, Creatinine 0.66 D, Estimated Creat Clear 66, Estimated GFR 89, Est GFR ( Amer) 107 D, Glucose 103, Calcium 8.4 L I & O for Last 24 hours: Intake & Output 09/15/18 09/16/18 09/17/18 09/18/18 11:59 11:59 11:59 11:59 Intake Total 1664 / 1664 3452 / 3462 958 / 958 320 / 320 Output Total 998 / 998 762 / 790 1005 / 1045 807 / 807 Balance 666 / 666 2690 / 2672 -47 / -87 -487 / -487 Weight 182 lb 4 oz 178 lb 9.191 oz 177 lb 14.609 oz 175 lb 4.28 oz Microbiology Reports for the Last 24 Hours: Microbiology 09/14/18 15:53 Sputum - Expectorated Sputum Gram Stain - Final 09/14/18 15:53 Sputum - Expectorated Sputum Sputum Culture - Preliminary Staphylococcus aureus - *Routine HEENT Exam Head: Present: normocephalic Eye: Present: EOMI, PERRL ENT: Present: mucous membranes dry - *Routine Respiratory Exam Present: wheezes, diminished air movement. Absent: accessory muscle use, rales, rhonchi - *Routine Cardiovascular Exam Present: RRR. Absent: murmur, gallop, rubs - *Routine Extremities Exam Absent: edema, calf tenderness - *Routine Neurological Exam Present: alert, moving all extremities Progress Note: A&P (1) Non-STEMI (non-ST elevated myocardial infarction) Status: Acute Current Visit: Yes (2) Acute and chronic respiratory failure Status: Acute Current Visit: Yes (3) IgG subclass deficiency Status: Acute Current Visit: Yes (4) Left lower lobe consolidation Status: Ruled-out Current Visit: Yes (5) Dependence on supplemental oxygen Status: Acute Current Visit: No (6) Very severe chronic obstructive pulmonary disease Status: Acute Current Visit: No (7) Elevated troponin Status: Acute Current Visit: Yes (8) Cardiomyopathy Status: Acute Current Visit: Yes (9) Acute systolic heart failure Status: Acute Current Visit: Yes (10) MRSA (methicillin resistant staph aureus) culture positive Status: Acute Current Visit: Yes Assessment and Plan for All Diagnoses:: 1. Beta-liam has been held due to bradycardia. This may be exacerbating her pulmonary disease with wheezing noted on exam. IV steroids continue. 2. NEO inhibitor started in the setting of a cardiomyopathy and hypertension. 3. Bumex continues for cardiomyopathy to help prevent congestive heart failure. Chest x-ray yesterday shows no evidence of infiltrate or effusion. 4. Lovenox continues due to severe cardiomyopathy and sedentary state for thromboembolic prophylaxis 5. Cardiac catheterization should be performed prior to patient being discharged home. Will not proceed today.
--- NOTE | 2018-09-18 10:09 | Progress Note ---
Internal Medicine - PN: Subj *Date: 09/18/18 *Time: 10:08 Exam Vital signs and Labs for Last 24 Hours: Temp Pulse Resp BP Pulse Ox 97.8 F 60 18 140/63 100 09/18/18 07:40 09/18/18 07:40 09/18/18 07:40 09/18/18 07:40 09/18/18 07:40 Laboratory Results - last 24 hr 09/17/18 13:55: Specimen Source R radial, O2 % 50%, ABG pH 7.36, ABG pCO2 48.4 H , ABG pO2 129.5 H, ABG HCO3 26.7 H, ABG Total CO2 28.2 H, ABG O2 Saturation 98, ABG Base Excess 1.2, Carlos Test Acceptable 09/18/18 06:15: WBC 6.0 D, RBC 3.32 L, Hgb 9.5 L, Hct 28.3 L, MCV 85.3, MCH 28.7, MCHC 33.6, RDW 14.3, Plt Count 206, MPV 6.5 L, Neut % (Auto) 73.5, Lymph % (Auto) 21.0, [place] % (Auto) 5.3, Eos % (Auto) 0.1, Baso % (Auto) 0.1, Neut # (Auto) 4.4, Lymph # (Auto) 1.3, [place] # (Auto) 0.3, Eos # (Auto) 0.0, Baso # (Auto) 0.0 09/18/18 06:15: Sodium 142, Potassium 3.9, Chloride 107, Carbon Dioxide 30, Anion Gap 8.9, BUN 26 H D, Creatinine 0.66 D, Estimated Creat Clear 66, Estimated GFR 89, Est GFR ( Amer) 107 D, Glucose 103, Calcium 8.4 L I & O for Last 24 hours: Intake & Output 09/15/18 09/16/18 09/17/18 09/18/18 23:59 23:59 23:59 23:59 Intake Total 3308 / 3481 2534 / 2556 502 / 502 Output Total 805 / 842 1070 / 1120 967 / 967 330 / 330 Balance 2503 / 2639 1464 / 1436 -465 / -465 -330 / -330 Weight 82.667 kg 81 kg 80.7 kg 79.5 kg Microbiology Reports for the Last 24 Hours: Microbiology 09/14/18 15:53 Sputum - Expectorated Sputum Gram Stain - Final 09/14/18 15:53 Sputum - Expectorated Sputum Sputum Culture - Final Staphylococcus aureus Assessment and Plan (1) Non-STEMI (non-ST elevated myocardial infarction) Current visit: Yes Status: Acute Category: Medical Code(s): I21.4 - Non-ST elevation (NSTEMI) myocardial infarction (2) Acute and chronic respiratory failure Current visit: Yes Status: Acute Category: Medical Code(s): J96.20 - Acute and chronic respiratory failure, unspecified whether with hypoxia or hypercapnia (3) IgG subclass deficiency Current visit: Yes Status: Acute Category: Medical Code(s): D80.3 - Selective deficiency of immunoglobulin G [IgG] subclasses (4) Left lower lobe consolidation Current visit: Yes Status: Ruled-out Category: Medical Code(s): J18.1 - Lobar pneumonia, unspecified organism (5) Dependence on supplemental oxygen Current visit: No Status: Acute Category: Medical Code(s): Z99.81 - Dependence on supplemental oxygen (6) Very severe chronic obstructive pulmonary disease Current visit: No Status: Acute Category: Medical Code(s): J44.9 - Chronic obstructive pulmonary disease, unspecified (7) Elevated troponin Current visit: Yes Status: Acute Category: Medical Code(s): R74.8 - Abnormal levels of other serum enzymes (8) Cardiomyopathy Current visit: Yes Status: Acute Category: Medical Code(s): I42.9 - Cardiomyopathy, unspecified (9) Acute systolic heart failure Current visit: Yes Status: Acute Category: Medical Code(s): I50.21 - Acute systolic (congestive) heart failure (10) MRSA (methicillin resistant staph aureus) culture positive Current visit: Yes Status: Acute Category: Medical Code(s): Z22.322 - Carrier or suspected carrier of Methicillin resistant Staphylococcus aureus The patient's infection will respond to the chosen ABx?: Yes Is the patient receiving the right drug, dose, and route?: Yes Could a more targeted ABx be ordered?: No (PATIENT WITH CULTURE POSITIVE FOR STAPH AUREUS, SENSITIVE TO VANCO)
[2018-09-18 11:22] LABS: Microscopic, Urine URINE MICROSCOPIC (MICROSCOPIC)
[2018-09-18 11:32] LABS: Appearance,Urine CLEAR (Clear); Bilirubin,Urine Negative (Negative); Blood, Urine 3+ (Negative); Color,Urine YELLOW (Yellow); Glucose,Urine (UA) Negative (Negative); Ketones,Urine Negative (Negative); Leukocyte Esterase,Urine Negative (Negative); PH,Urine 5.5 (5.0-8.5); Protein,Urine Negative (Negative); Specific Gravity, Urine <= 1.005 (1.005-1.030); Urobilinogen,Urine 0.2 EU/dl (0.2)
[2018-09-18 12:37] LABS: Bacteria,Urine Trace /lpf
[2018-09-19 05:16] LABS: Anion Gap 8.5 mEq/L (5-15); Basophils % 0.2 % (0.1-2.0); Calcium 8.6 mg/dL (8.5-10.1); Eosinophils % 0.2 % (0.1-12.0); Hematocrit 29.4 % (37.0-47.0); Hemoglobin 10.4 g/dL (12.2-16.2); Lymphocytes # 1.5 K/mm3 (0.7-4.5); Lymphocytes % 24.7 % (10-50); Mean Corpuscular HGB Conc 35.2 g/dL (31.8-35.4); Mean Corpuscular Hemoglobin 29.4 pg (27.0-31.2); Mean Corpuscular Volume 83.7 fl (81-99); Mean Platelet Volume 6.4 fl (7.4-10.4); Monocytes # 0.4 K/mm3 (0.1-1.0); Monocytes % 6.3 % (1.7-9.3); Neutrophils # 4.2 K/mm3 (1.8-7.8); Neutrophils % 68.6 % (37.0-80.0); Platelet Count 211 K/mm3 (142-424); Potassium 3.5 mmoL/L (3.5-5.1); Red Blood Count 3.52 M/mm3 (4.20-5.40); Red Cell Distribution Width 14.1 % (11.5-17.5); White Blood Count 6.1 K/mm3 (4.8-10.8)
--- NOTE | 2018-09-19 07:08 | Progress Note ---
Internal Medicine - PN: Subj *Date: 09/19/18 *Time: 07:04 Interval history: Patient continues to complain of anxiety and dyspnea both to me and to staff. She is not resting well at night. Appetite remains poor. She is tolerating Jell-O but endorses nausea. She still remains weak and the active getting out of bed to the bedside commode yesterday left her breathless and she required assistance getting back in bed. Exam Vital signs and Labs for Last 24 Hours: Temp Pulse Resp BP Pulse Ox 98.8 F 57 L 16 133/70 100 09/19/18 06:00 09/19/18 06:00 09/19/18 06:00 09/19/18 06:00 09/19/18 06:00 Laboratory Results - last 24 hr 09/18/18 06:15: Sodium 142, Potassium 3.9, Chloride 107, Carbon Dioxide 30, Anion Gap 8.9, BUN 26 H D, Creatinine 0.66 D, Estimated Creat Clear 66, Estimated GFR 89, Est GFR ( Amer) 107 D, Glucose 103, Calcium 8.4 L 09/18/18 11:10: Urine Color Yellow, Urine Appearance Clear, Urine pH 5.5, Ur Specific [place] <= 1.005, Urine Protein Negative, Urine Glucose (UA) Negative, Urine Ketones Negative, Urine Blood 3+, Urine Nitrate Negative, Urine Bilirubin Negative, Urine Urobilinogen 0.2, Ur Leukocyte Esterase Negative, Urine RBC 10- 20, Urine WBC 5-10, Urine Bacteria Trace 09/18/18 13:10: Vancomycin Trough 36.7 H 09/19/18 04:40: WBC 6.1, RBC 3.52 L, Hgb 10.4 L, Hct 29.4 L, MCV 83.7, MCH 29.4, MCHC 35.2, RDW 14.1, Plt Count 211, MPV 6.4 L, Neut % (Auto) 68.6, Lymph % (Auto) 24.7, [place] % (Auto) 6.3, Eos % (Auto) 0.2, Baso % (Auto) 0.2, Neut # (Auto) 4.2, Lymph # (Auto) 1.5, [place] # (Auto) 0.4, Eos # (Auto) 0.0, Baso # (Auto) 0.0 09/19/18 04:40: Sodium 140, Potassium 3.5, Chloride 103, Carbon Dioxide 32, Anion Gap 8.5, BUN 22 H, Creatinine 0.73, Estimated Creat Clear 65, Estimated GFR 79, Est GFR ( Amer) 95, Glucose 107 H, Calcium 8.6 I & O for Last 24 hours: Intake & Output 09/16/18 09/17/18 09/18/18 09/19/18 11:59 11:59 11:59 11:59 Intake Total 3452 / 3462 958 / 958 320 / 320 440 / 440 Output Total 762 / 790 1005 / 1045 807 / 807 1700 / 1700 Balance 2690 / 2672 -47 / -87 -487 / -487 -1260 / -1260 Weight 178 lb 9.191 oz 177 lb 14.609 oz 175 lb 4.28 oz 172 lb 3 oz Microbiology Reports for the Last 24 Hours: Microbiology 09/14/18 15:53 Sputum - Expectorated Sputum Gram Stain - Final 09/14/18 15:53 Sputum - Expectorated Sputum Sputum Culture - Final Staphylococcus aureus Narrative: Patient appears scared. However she appears more comfortable today than yesterday in regards to respiratory effort. Lungs have diminished breath sounds with faint end expiratory wheezes and prolonged expiratory phase. Heart has a regular rate and rhythm. Assessment and Plan (1) Non-STEMI (non-ST elevated myocardial infarction) Current visit: Yes Status: Acute Category: Medical Code(s): I21.4 - Non-ST elevation (NSTEMI) myocardial infarction (2) Acute and chronic respiratory failure Current visit: Yes Status: Acute Category: Medical Code(s): J96.20 - Acute and chronic respiratory failure, unspecified whether with hypoxia or hypercapnia (3) IgG subclass deficiency Current visit: Yes Status: Acute Category: Medical Code(s): D80.3 - Selective deficiency of immunoglobulin G [IgG] subclasses (4) Left lower lobe consolidation Current visit: Yes Status: Ruled-out Category: Medical Code(s): J18.1 - Lobar pneumonia, unspecified organism (5) Dependence on supplemental oxygen Current visit: No Status: Acute Category: Medical Code(s): Z99.81 - Dependence on supplemental oxygen (6) Very severe chronic obstructive pulmonary disease Current visit: No Status: Acute Category: Medical Code(s): J44.9 - Chronic obstructive pulmonary disease, unspecified (7) Elevated troponin Current visit: Yes Status: Acute Category: Medical Code(s): R74.8 - Abnormal levels of other serum enzymes (8) Cardiomyopathy Current visit: Yes Status: Acute Category: Medical Code(s): I42.9 - Cardiomyopathy, unspecified (9) Acute systolic heart failure Current visit: Yes Status: Acute Category: Medical Code(s): I50.21 - Acute systolic (congestive) heart failure (10) MRSA (methicillin resistant staph aureus) culture positive Current visit: Yes Status: Acute Category: Medical Code(s): Z22.322 - Carrier or suspected carrier of Methicillin resistant Staphylococcus aureus (11) Nausea Current visit: Yes Status: Acute Category: Medical Code(s): R11.0 - Nausea (12) Insomnia Current visit: Yes Status: Acute Category: Medical Code(s): G47.00 - Insomnia, unspecified - Assessment and plan all Dx Assessment and Plan for all problems:: 1. Continue attempts to wean supplemental oxygen back to patient's baseline oxygen use. 2. Care management is looking into inpatient pulmonary rehab. Anticipated discharge would be early next week 3. Patient is encouraged to get out of bed to chair today with assistance 4. Start twice daily proton pump inhibitor for her nausea 5. Continue Vistaril for anxiety 6. Restart trazodone for insomnia 7. Patient may come out of stepdown to a telemetry bed 8. Patient will need cardiac catheterization. Consider proceeding with left heart cath Saturday.
--- NOTE | 2018-09-19 09:26 | Progress Note ---
Subjective Date: 09/19/18 Time: 09:23 Principal diagnosis: Acute on chronic respiratory failure, shortness of breath, COPD Interval history: 72-year-old white female in ICU sitting in bedside chair in no acute distress. She continues to complain of significant anxiety and shortness of breath with minimal activity. She denies any chest pain, pressure or tightness. Telemetry shows no significant arrhythmias. Heart rate and blood pressure controlled. Exam Vital signs and Labs for Last 24 Hours: Temp Pulse Resp BP Pulse Ox 97.9 F 61 12 130/56 L 100 09/19/18 08:00 09/19/18 08:00 09/19/18 08:00 09/19/18 08:00 09/19/18 08:00 Laboratory Results - last 24 hr 09/18/18 11:10: Urine Color Yellow, Urine Appearance Clear, Urine pH 5.5, Ur Specific [place] <= 1.005, Urine Protein Negative, Urine Glucose (UA) Negative, Urine Ketones Negative, Urine Blood 3+, Urine Nitrate Negative, Urine Bilirubin Negative, Urine Urobilinogen 0.2, Ur Leukocyte Esterase Negative, Urine RBC 10- 20, Urine WBC 5-10, Urine Bacteria Trace 09/18/18 13:10: Vancomycin Trough 36.7 H 09/19/18 04:40: WBC 6.1, RBC 3.52 L, Hgb 10.4 L, Hct 29.4 L, MCV 83.7, MCH 29.4, MCHC 35.2, RDW 14.1, Plt Count 211, MPV 6.4 L, Neut % (Auto) 68.6, Lymph % (Auto) 24.7, [place] % (Auto) 6.3, Eos % (Auto) 0.2, Baso % (Auto) 0.2, Neut # (Auto) 4.2, Lymph # (Auto) 1.5, [place] # (Auto) 0.4, Eos # (Auto) 0.0, Baso # (Auto) 0.0 09/19/18 04:40: Sodium 140, Potassium 3.5, Chloride 103, Carbon Dioxide 32, Anion Gap 8.5, BUN 22 H, Creatinine 0.73, Estimated Creat Clear 65, Estimated GFR 79, Est GFR ( Amer) 95, Glucose 107 H, Calcium 8.6 I & O for Last 24 hours: Intake & Output 09/16/18 09/17/18 09/18/18 09/19/18 11:59 11:59 11:59 11:59 Intake Total 3452 / 3462 958 / 958 320 / 320 680 / 680 Output Total 762 / 790 1005 / 1045 807 / 807 1700 / 1700 Balance 2690 / 2672 -47 / -87 -487 / -487 -1020 / -1020 Weight 178 lb 9.191 oz 177 lb 14.609 oz 175 lb 4.28 oz 172 lb 3 oz Microbiology Reports for the Last 24 Hours: Microbiology 09/14/18 15:53 Sputum - Expectorated Sputum Gram Stain - Final 09/14/18 15:53 Sputum - Expectorated Sputum Sputum Culture - Final Staphylococcus aureus - *Routine HEENT Exam Head: Present: normocephalic Eye: Present: EOMI, PERRL ENT: Present: mucous membranes moist - *Routine Respiratory Exam Present: wheezes, diminished air movement. Absent: accessory muscle use, rales, rhonchi - *Routine Cardiovascular Exam Present: RRR. Absent: murmur, gallop, rubs - *Routine Neurological Exam Present: alert, oriented X3, moving all extremities Progress Note: A&P (1) Non-STEMI (non-ST elevated myocardial infarction) Status: Acute Current Visit: Yes (2) Acute and chronic respiratory failure Status: Acute Current Visit: Yes (3) IgG subclass deficiency Status: Acute Current Visit: Yes (4) Left lower lobe consolidation Status: Ruled-out Current Visit: Yes (5) Dependence on supplemental oxygen Status: Acute Current Visit: No (6) Very severe chronic obstructive pulmonary disease Status: Acute Current Visit: No (7) Elevated troponin Status: Acute Current Visit: Yes (8) Cardiomyopathy Status: Acute Current Visit: Yes (9) Acute systolic heart failure Status: Acute Current Visit: Yes (10) MRSA (methicillin resistant staph aureus) culture positive Status: Acute Current Visit: Yes (11) Nausea Status: Acute Current Visit: Yes (12) Insomnia Status: Acute Current Visit: Yes Assessment and Plan for All Diagnoses:: Continue lisinopril therapy for non-ST elevation [place]. Beta-liam held due to bradycardia. Patient continues slow improvement in her pulmonary status towards her baseline. Continue to consider cardiac catheterization but would postpone until Saturday at this time.
--- NOTE | 2018-09-19 15:48 | Pharmacy Consult Notes ---
- Pharmacy Consult Date: 09/19/18 Time: 15:46 Referring provider: DR. REID Reason for Consult:: VANCOMYCIN TROUGH LEVEL Allergies and ADEs:: Allergies Allergy/AdvReac Type Severity Reaction Status Date / Time hydrocodone [HYDROCODONE] Allergy Severe dizziness, Verified 03/30/18 01:49 n/v metoclopramide [From REGLAN] Allergy Severe Swelling Verified 03/30/18 01:49 of Lip/Tongue/Throat codeine [CODEINE] Allergy Intermediate dizziness. Verified 03/30/18 01:49 n/v Sulfa (Sulfonamide AdvReac Mild n/v Verified 03/30/18 01:49 Antibiotics) [SULFA (SULFONAMIDE ANTIBIOTICS)] Home Medications:: Home Medications Medication Instructions Recorded Confirmed Type Albuterol Sulfate [Albuterol 2.5 mg IH Q6HP PRN 05/24/17 09/14/18 History 0.083% 2.5mg/3mL neb] Albuterol Sulfate [Proair Hfa 2 puffs IH Q4HP PRN 05/24/17 09/14/18 History 90mcg/puff Inh] Aspirin [Aspirin 81mg EC Tab] 81 mg PO DAILY 05/24/17 09/14/18 History Azelastine/Fluticasone [Dymista 1 spray NS BID 05/24/17 09/14/18 History Nasal [place]] Bacillus Coagulans [Probiotic] 1 each PO DAILY 05/24/17 09/14/18 History Budesonide/Formoterol Fumarate 2 puffs IH BID 05/24/17 09/14/18 History [Symbicort 160-4.5 Mcg Inhaler] Bumetanide 2 mg PO DAILY 05/24/17 09/14/18 History Buspirone HCl [Buspar 10mg tablet] 10 mg PO BID 05/24/17 09/14/18 History Cholecalciferol (Vitamin D3) 400 unit PO DAILY 05/24/17 09/14/18 History [Vitamin D3] Ferrous Sulfate [Iron] 325 mg PO DAILY 05/24/17 09/14/18 History Ipratropium [place] [Atrovent 0.5 mg IH BIDP PRN 05/24/17 09/14/18 History 0.5mg/2.5mL neb] Loratadine [Claritin] 10 mg PO DAILY 05/24/17 09/14/18 History Mirabegron [Myrbetriq] 50 mg PO DAILY 05/24/17 09/14/18 History Montelukast Sodium [Montelukast 10 mg PO HS 05/24/17 09/14/18 History 10mg Tab] Multivitamin [Multivitamins] 1 each PO DAILY 05/24/17 09/14/18 History Pantoprazole Sodium [Protonix 40mg 40 mg PO DAILY 05/24/17 09/14/18 History tablet] Pilocarpine HCl [Salagen] 7.5 mg PO TIDP PRN 05/24/17 09/14/18 History Polyethylene Glycol 3350 [Miralax 17 gm PO DAILYP PRN 05/24/17 09/14/18 History 17gm Packet] Sertraline HCl [Zoloft] 100 mg PO DAILY 05/24/17 09/14/18 History Guaifenesin/Dextromethorphan 10 ml PO Q4HP PRN #200 liquid 03/30/18 09/14/18 Rx [Guaifenesin-Dm Solution] Potassium Chloride [Micro-K 10mEq 20 meq PO DAILY 05/21/18 09/14/18 History cap] Roflumilast [Daliresp] 500 mcg PO DAILY 05/21/18 09/14/18 History Acetaminophen [Acetaminophen 325mg 325 mg PO Q6HP PRN 05/22/18 09/14/18 History tab] Ondansetron [Ondansetron Odt 8mg 8 mg PO DAILY 05/22/18 09/15/18 History Tab] Trazodone HCl 100 mg PO HS 05/22/18 09/14/18 History Pregabalin [Lyrica 150mg Cap] 150 mg PO HS #30 cap 05/26/18 09/14/18 Rx Acetylcysteine [Mucomyst 20% 4mL 1 ml INHALATION TIDRT 06/10/18 09/14/18 History vial] Sucralfate [Sucralfate 1gm 1 gm PO BID 09/14/18 09/15/18 History Tab] Nadolol [Corgard] 20 mg PO BID 09/15/18 09/15/18 History Tiotropium [place] [Spiriva 1 puff IH DAILY 09/15/18 09/15/18 History 18mcg/puff inhaler] Hydrocortisone 2.5 mg PO HS 09/16/18 09/16/18 History Hydrocortisone 5 mg PO DAILY 09/16/18 09/16/18 History Height: 1.52 m Weight: 78.103 kg Laboratory Results:: Laboratory Results - last 24 hr 09/19/18 04:40: WBC 6.1, RBC 3.52 L, Hgb 10.4 L, Hct 29.4 L, MCV 83.7, MCH 29.4, MCHC 35.2, RDW 14.1, Plt Count 211, MPV 6.4 L, Neut % (Auto) 68.6, Lymph % (Auto) 24.7, [place] % (Auto) 6.3, Eos % (Auto) 0.2, Baso % (Auto) 0.2, Neut # (Auto) 4.2, Lymph # (Auto) 1.5, [place] # (Auto) 0.4, Eos # (Auto) 0.0, Baso # (Auto) 0.0 09/19/18 04:40: Sodium 140, Potassium 3.5, Chloride 103, Carbon Dioxide 32, Anion Gap 8.5, BUN 22 H, Creatinine 0.73, Estimated Creat Clear 65, Estimated GFR 79, Est GFR ( Amer) 95, Glucose 107 H, Calcium 8.6 09/19/18 12:35: Vancomycin Trough 8.9 L Medical History: Reports:: Anxiety, Chronic Obstructive Pulmonary Disease (COPD), Gastroesophageal Reflux Disease(GERD), Hypertension Denies:: Cancer, Diabetes Mellitus Type 1, Diabetes Mellitus Type 2, MRSA Assessment and Plan (1) Non-STEMI (non-ST elevated myocardial infarction) Current visit: Yes Status: Acute Category: Medical Code(s): I21.4 - Non-ST elevation (NSTEMI) myocardial infarction (2) Acute and chronic respiratory failure Current visit: Yes Status: Acute Category: Medical Code(s): J96.20 - Acute and chronic respiratory failure, unspecified whether with hypoxia or hypercapnia (3) IgG subclass deficiency Current visit: Yes Status: Acute Category: Medical Code(s): D80.3 - Selective deficiency of immunoglobulin G [IgG] subclasses (4) Left lower lobe consolidation Current visit: Yes Status: Ruled-out Category: Medical Code(s): J18.1 - Lobar pneumonia, unspecified organism (5) Dependence on supplemental oxygen Current visit: No Status: Acute Category: Medical Code(s): Z99.81 - Dependence on supplemental oxygen (6) Very severe chronic obstructive pulmonary disease Current visit: No Status: Acute Category: Medical Code(s): J44.9 - Chronic obstructive pulmonary disease, unspecified (7) Elevated troponin Current visit: Yes Status: Acute Category: Medical Code(s): R74.8 - Abnormal levels of other serum enzymes (8) Cardiomyopathy Current visit: Yes Status: Acute Category: Medical Code(s): I42.9 - Cardiomyopathy, unspecified (9) Acute systolic heart failure Current visit: Yes Status: Acute Category: Medical Code(s): I50.21 - Acute systolic (congestive) heart failure (10) MRSA (methicillin resistant staph aureus) culture positive Current visit: Yes Status: Acute Category: Medical Code(s): Z22.322 - Carrier or suspected carrier of Methicillin resistant Staphylococcus aureus (11) Nausea Current visit: Yes Status: Acute Category: Medical Code(s): R11.0 - Nausea (12) Insomnia Current visit: Yes Status: Acute Category: Medical Code(s): G47.00 - Insomnia, unspecified - Assessment and plan all Dx Assessment and Plan for all problems:: VANCOMYCIN TROUGH LEVEL 09/18/18: 36.7 MCG/ML. VANCOMYCIN DOSE WAS HELD. VANCOMYCIN TROUGH LEVEL 09/19/18: 8.9 MCG/ML. VANCOMYCIN 1250 MG IV Q48H ORDERED. PHARMACY WILL CHECK TROUGH LEVEL AGAIN TOMORROW AT 24 HOURS POST INFUSION. PHARMACY WILL CONTINUE TO MONITOR DAILY AND ADJUST APPROPRIATE.
--- NOTE | 2018-09-20 07:48 | Progress Note ---
Internal Medicine - PN: Subj *Date: 09/20/18 *Time: 07:46 Interval history: Patient has no complaints this morning. She admits that she finally got some sleep overnight. In regards to sleep the patient is supposed to be using BiPAP at home but admits that has been years since she used her machine. She does not recall why she stopped using the BiPAP other than possible claustrophobia associated with using the device. Exam Vital signs and Labs for Last 24 Hours: Temp Pulse Resp BP Pulse Ox 97.7 F 62 22 130/77 93 L 09/20/18 04:00 09/20/18 06:00 09/20/18 04:00 09/20/18 04:00 09/20/18 06:00 Laboratory Results - last 24 hr 09/19/18 12:35: Vancomycin Trough 8.9 L I & O for Last 24 hours: Intake & Output 09/17/18 09/18/18 09/19/18 09/20/18 11:59 11:59 11:59 11:59 Intake Total 958 / 958 320 / 320 680 / 680 1320 / 1320 Output Total 1005 / 1045 807 / 807 1700 / 1700 200 / 200 Balance -47 / -87 -487 / -487 -1020 / -1020 1120 / 1120 Weight 177 lb 14.609 oz 175 lb 4.28 oz 172 lb 3 oz 175 lb 6 oz Microbiology Reports for the Last 24 Hours: Microbiology 09/14/18 12:15 Blood Blood Culture - Final NO GROWTH AFTER 5 DAYS 09/14/18 11:51 Blood Blood Culture - Final NO GROWTH AFTER 5 DAYS 09/18/18 11:10 Urine,[place] Urine Culture - Preliminary NO GROWTH AFTER 24 HOURS Narrative: Patient looks comfortable and in no distress. She does not appear anxious. Lungs have expiratory wheezes and fair aeration. Heart has a regular rate and rhythm Assessment and Plan (1) Non-STEMI (non-ST elevated myocardial infarction) Current visit: Yes Status: Acute Category: Medical Code(s): I21.4 - Non-ST elevation (NSTEMI) myocardial infarction (2) Acute and chronic respiratory failure Current visit: Yes Status: Acute Category: Medical Code(s): J96.20 - Acute and chronic respiratory failure, unspecified whether with hypoxia or hypercapnia (3) IgG subclass deficiency Current visit: Yes Status: Acute Category: Medical Code(s): D80.3 - Selective deficiency of immunoglobulin G [IgG] subclasses (4) Left lower lobe consolidation Current visit: Yes Status: Ruled-out Category: Medical Code(s): J18.1 - Lobar pneumonia, unspecified organism (5) Dependence on supplemental oxygen Current visit: No Status: Acute Category: Medical Code(s): Z99.81 - Dependence on supplemental oxygen (6) Very severe chronic obstructive pulmonary disease Current visit: No Status: Acute Category: Medical Code(s): J44.9 - Chronic obstructive pulmonary disease, unspecified (7) Elevated troponin Current visit: Yes Status: Acute Category: Medical Code(s): R74.8 - Abnormal levels of other serum enzymes (8) Cardiomyopathy Current visit: Yes Status: Acute Category: Medical Code(s): I42.9 - Cardiomyopathy, unspecified (9) Acute systolic heart failure Current visit: Yes Status: Acute Category: Medical Code(s): I50.21 - Acute systolic (congestive) heart failure (10) MRSA (methicillin resistant staph aureus) culture positive Current visit: Yes Status: Acute Category: Medical Code(s): Z22.322 - Carrier or suspected carrier of Methicillin resistant Staphylococcus aureus (11) Nausea Current visit: Yes Status: Acute Category: Medical Code(s): R11.0 - Nausea (12) Insomnia Current visit: Yes Status: Acute Category: Medical Code(s): G47.00 - Insomnia, unspecified (13) Chronic respiratory failure Current visit: Yes Status: Acute Category: Medical Code(s): J96.10 - Chr onic respiratory failure, unspecified whether with hypoxia or hypercapnia - Assessment and plan all Dx Assessment and Plan for all problems:: 1. No change in current medications today 2. Encourage patient to be more active today than yesterday. 3. Anticipate possible cardiac catheterization on Saturday 4. Will contact local home medical equipment about trial of trilogy ventilation device.
[2018-09-21 06:24] LABS: Basophils % 0.1 % (0.1-2.0); Eosinophils # 0.1 K/mm3 (0.0-0.4); Eosinophils % 0.7 % (0.1-12.0); Hemoglobin 10.4 g/dL (12.2-16.2); Lymphocytes % 13.2 % (10-50); Mean Corpuscular HGB Conc 34.7 g/dL (31.8-35.4); Mean Corpuscular Hemoglobin 29.2 pg (27.0-31.2); Mean Corpuscular Volume 84.3 fl (81-99); Mean Platelet Volume 7.3 fl (7.4-10.4); Monocytes # 0.3 K/mm3 (0.1-1.0); Monocytes % 4.2 % (1.7-9.3); Neutrophils % 81.9 % (37.0-80.0); Platelet Count 212 K/mm3 (142-424); Red Blood Count 3.54 M/mm3 (4.20-5.40); Red Cell Distribution Width 14.4 % (11.5-17.5); White Blood Count 7.3 K/mm3 (4.8-10.8)
[2018-09-21 06:25] LABS: Hematocrit 29.9 % (37.0-47.0)
[2018-09-21 06:32] LABS: Anion Gap 8.2 mEq/L (5-15); Calcium 7.8 mg/dL (8.5-10.1); Potassium 3.2 mmoL/L (3.5-5.1)
--- NOTE | 2018-09-21 08:04 | Progress Note ---
Internal Medicine - PN: Subj *Date: 09/21/18 *Time: 08:00 Interval history: Patient reports getting better quality sleep overnight with use of the trilogy device as opposed to her BiPAP. There is significantly less claustrophobia and discomfort with use of the trilogy device. She however remains quite weak and admits even the active standing up at bedside has her quite fearful as her legs feel very weak. She has transition from bed to chair with standby assist but that is the limit of her activity at this point. She denies any worsening shortness of breath. Nursing reported a brief run of V. tach yesterday evening. Patient was asymptomatic during this Exam Vital signs and Labs for Last 24 Hours: Temp Pulse Resp BP Pulse Ox 97.8 F 74 19 100/51 L 100 09/21/18 04:00 09/21/18 05:31 09/21/18 04:00 09/21/18 04:00 09/21/18 05:31 Laboratory Results - last 24 hr 09/18/18 06:15: IgG 879, IgG Subclass 1 587, IgG Subclass 2 196, IgG Subclass 3 39, IgG Subclass 4 23 09/20/18 14:05: Vancomycin Trough 12.9 09/21/18 06:10: WBC 7.3, RBC 3.54 L, Hgb 10.4 L, Hct 29.9 L, MCV 84.3, MCH 29.2, MCHC 34.7, RDW 14.4, Plt Count 212, MPV 7.3 L, Neut % (Auto) 81.9 H, Lymph % (Auto) 13.2, [place] % (Auto) 4.2, Eos % (Auto) 0.7, Baso % (Auto) 0.1, Neut # (Auto) 6.0, Lymph # (Auto) 1.0, [place] # (Auto) 0.3, Eos # (Auto) 0.1, Baso # (Auto) 0.0 09/21/18 06:10: Sodium 140, Potassium 3.2 L, Chloride 99, Carbon Dioxide 36 H, Anion Gap 8.2, BUN 28 H D, Creatinine 0.84, Estimated Creat Clear 66, Estimated GFR 67, Est GFR ( Amer) 81, Glucose 120 H, Calcium 7.8 L, Magnesium 2.1 I & O for Last 24 hours: Intake & Output 09/18/18 09/19/18 09/20/18 09/21/18 11:59 11:59 11:59 11:59 Intake Total 320 / 320 680 / 680 1800 / 1800 1999 Output Total 807 / 807 1700 / 1700 200 / 200 1410 / 1410 Balance -487 / -487 -1020 / -1020 1600 / 1600 590 / 590 Weight 175 lb 4.28 oz 172 lb 3 oz 175 lb 6 oz 176 lb 4 oz Microbiology Reports for the Last 24 Hours: Microbiology 09/18/18 11:10 Urine,[place] Urine Culture - Final NO GROWTH AFTER 48 HOURS Narrative: Patient looks comfortable and relaxed. She is eating breakfast on the bedside this morning. Lungs have faint expiratory wheezes and poor to fair aeration. Heart has a regular rate and rhythm. Extremities are without edema this morning Assessment and Plan (1) Non-STEMI (non-ST elevated myocardial infarction) Current visit: Yes Status: Acute Category: Medical Code(s): I21.4 - Non-ST elevation (NSTEMI) myocardial infarction (2) Acute and chronic respiratory failure Current visit: Yes Status: Acute Category: Medical Code(s): J96.20 - Acute and chronic respiratory failure, unspecified whether with hypoxia or hypercapnia (3) IgG subclass deficiency Current visit: Yes Status: Acute Category: Medical Code(s): D80.3 - Selective deficiency of immunoglobulin G [IgG] subclasses (4) Left lower lobe consolidation Current visit: Yes Status: Ruled-out Category: Medical Code(s): J18.1 - Lobar pneumonia, unspecified organism (5) Dependence on supplemental oxygen Current visit: No Status: Acute Category: Medical Code(s): Z99.81 - Dependence on supplemental oxygen (6) Very severe chronic obstructive pulmonary disease Current visit: No Status: Acute Category: Medical Code(s): J44.9 - Chronic obstructive pulmonary disease, unspecified (7) Elevated troponin Current visit: Yes Status: Acute Category: Medical Code(s): R74.8 - Abnormal levels of other serum enzymes (8) Cardiomyopathy Current visit: Yes Status: Acute Category: Medical Code(s): I42.9 - Cardiomyopathy, unspecified (9) Acute systolic heart failure Current visit: Yes Status: Acute Category: Medical Code(s): I50.21 - Acute systolic (congestive) heart failure (10) MRSA (methicillin resistant staph aureus) culture positive Current visit: Yes Status: Acute Category: Medical Code(s): Z22.322 - Carrier or suspected carrier of Methicillin resistant Staphylococcus aureus (11) Nausea Current visit: Yes Status: Acute Category: Medical Code(s): R11.0 - Nausea (12) Insomnia Current visit: Yes Status: Acute Category: Medical Code(s): G47.00 - Insomnia, unspecified (13) Chronic respiratory failure Current visit: Yes Status: Acute Category: Medical Code(s): J96.10 - Chronic respiratory failure, unspecified whether with hypoxia or hypercapnia (14) Hypokalemia Current visit: Yes Status: Acute Category: Medical Code(s): E87.6 - Hypokalemia - Assessment and plan all Dx Assessment and Plan for all problems:: 1. Patient's family will bring in her walker to allow her to ambulate within the room with standby assist to assess her activity tolerance 2. Cardiology is already consulted and I do believe the patient is stable enough to proceed with cardiac catheterization tomorrow. 3. Replace potassium 4. Continue vancomycin for MRSA bronchitis 5. IgG levels have returned and are all within the normal range. 6. Tentative plan for transitioning to pulmonary rehab
--- NOTE | 2018-09-21 15:10 | Pharmacy Consult Notes ---
- Pharmacy Consult Date: 09/21/18 Time: 15:09 Referring provider: DR. REID Reason for Consult:: VANCOMYCIN TROUGH LEVEL Allergies and ADEs:: Allergies Allergy/AdvReac Type Severity Reaction Status Date / Time hydrocodone [HYDROCODONE] Allergy Severe dizziness, Verified 03/30/18 01:49 n/v metoclopramide [From REGLAN] Allergy Severe Swelling Verified 03/30/18 01:49 of Lip/Tongue/Throat codeine [CODEINE] Allergy Intermediate dizziness. Verified 03/30/18 01:49 n/v Sulfa (Sulfonamide AdvReac Mild n/v Verified 03/30/18 01:49 Antibiotics) [SULFA (SULFONAMIDE ANTIBIOTICS)] Home Medications:: Home Medications Medication Instructions Recorded Confirmed Type Albuterol Sulfate [Albuterol 2.5 mg IH Q6HP PRN 05/24/17 09/14/18 History 0.083% 2.5mg/3mL neb] Albuterol Sulfate [Proair Hfa 2 puffs IH Q4HP PRN 05/24/17 09/14/18 History 90mcg/puff Inh] Aspirin [Aspirin 81mg EC Tab] 81 mg PO DAILY 05/24/17 09/14/18 History Azelastine/Fluticasone [Dymista 1 spray NS BID 05/24/17 09/14/18 History Nasal [place]] Bacillus Coagulans [Probiotic] 1 each PO DAILY 05/24/17 09/14/18 History Budesonide/Formoterol Fumarate 2 puffs IH BID 05/24/17 09/14/18 History [Symbicort 160-4.5 Mcg Inhaler] Bumetanide 2 mg PO DAILY 05/24/17 09/14/18 History Buspirone HCl [Buspar 10mg tablet] 10 mg PO BID 05/24/17 09/14/18 History Cholecalciferol (Vitamin D3) 400 unit PO DAILY 05/24/17 09/14/18 History [Vitamin D3] Ferrous Sulfate [Iron] 325 mg PO DAILY 05/24/17 09/14/18 History Ipratropium [place] [Atrovent 0.5 mg IH BIDP PRN 05/24/17 09/14/18 History 0.5mg/2.5mL neb] Loratadine [Claritin] 10 mg PO DAILY 05/24/17 09/14/18 History Mirabegron [Myrbetriq] 50 mg PO DAILY 05/24/17 09/14/18 History Montelukast Sodium [Montelukast 10 mg PO HS 05/24/17 09/14/18 History 10mg Tab] Multivitamin [Multivitamins] 1 each PO DAILY 05/24/17 09/14/18 History Pantoprazole Sodium [Protonix 40mg 40 mg PO DAILY 05/24/17 09/14/18 History tablet] Pilocarpine HCl [Salagen] 7.5 mg PO TIDP PRN 05/24/17 09/14/18 History Polyethylene Glycol 3350 [Miralax 17 gm PO DAILYP PRN 05/24/17 09/14/18 History 17gm Packet] Sertraline HCl [Zoloft] 100 mg PO DAILY 05/24/17 09/14/18 History Guaifenesin/Dextromethorphan 10 ml PO Q4HP PRN #200 liquid 03/30/18 09/14/18 Rx [Guaifenesin-Dm Solution] Potassium Chloride [Micro-K 10mEq 20 meq PO DAILY 05/21/18 09/14/18 History cap] Roflumilast [Daliresp] 500 mcg PO DAILY 05/21/18 09/14/18 History Acetaminophen [Acetaminophen 325mg 325 mg PO Q6HP PRN 05/22/18 09/14/18 History tab] Ondansetron [Ondansetron Odt 8mg 8 mg PO DAILY 05/22/18 09/15/18 History Tab] Trazodone HCl 100 mg PO HS 05/22/18 09/14/18 History Pregabalin [Lyrica 150mg Cap] 150 mg PO HS #30 cap 05/26/18 09/14/18 Rx Acetylcysteine [Mucomyst 20% 4mL 1 ml INHALATION TIDRT 06/10/18 09/14/18 History vial] Sucralfate [Sucralfate 1gm 1 gm PO BID 09/14/18 09/15/18 History Tab] Nadolol [Corgard] 20 mg PO BID 09/15/18 09/15/18 History Tiotropium [place] [Spiriva 1 puff IH DAILY 09/15/18 09/15/18 History 18mcg/puff inhaler] Hydrocortisone 2.5 mg PO HS 09/16/18 09/16/18 History Hydrocortisone 5 mg PO DAILY 09/16/18 09/16/18 History Height: 1.52 m Weight: 79.946 kg Laboratory Results:: Laboratory Results - last 24 hr 09/18/18 06:15: IgG 879, IgG Subclass 1 587, IgG Subclass 2 196, IgG Subclass 3 39, IgG Subclass 4 23 09/20/18 14:05: Vancomycin Trough 12.9 09/21/18 06:10: WBC 7.3, RBC 3.54 L, Hgb 10.4 L, Hct 29.9 L, MCV 84.3, MCH 29.2, MCHC 34.7, RDW 14.4, Plt Count 212, MPV 7.3 L, Neut % (Auto) 81.9 H, Lymph % (Auto) 13.2, [place] % (Auto) 4.2, Eos % (Auto) 0.7, Baso % (Auto) 0.1, Neut # (Auto) 6.0, Lymph # (Auto) 1.0, [place] # (Auto) 0.3, Eos # (Auto) 0.1, Baso # (Auto) 0.0 09/21/18 06:10: Sodium 140, Potassium 3.2 L, Chloride 99, Carbon Dioxide 36 H, Anion Gap 8.2, BUN 28 H D, Creatinine 0.84, Estimated Creat Clear 66, Estimated GFR 67, Est GFR ( Amer) 81, Glucose 120 H, Calcium 7.8 L, Magnesium 2.1 Medical History: Reports:: Anxiety, Chronic Obstructive Pulmonary Disease (COPD), Gastroesophageal Reflux Disease(GERD), Hypertension Denies:: Cancer, Diabetes Mellitus Type 1, Diabetes Mellitus Type 2, MRSA Assessment and Plan (1) Non-STEMI (non-ST elevated myocardial infarction) Current visit: Yes Status: Acute Category: Medical Code(s): I21.4 - Non-ST elevation (NSTEMI) myocardial infarction (2) Acute and chronic respiratory failure Current visit: Yes Status: Acute Category: Medical Code(s): J96.20 - Acute and chronic respiratory failure, unspecified whether with hypoxia or hypercapnia (3) IgG subclass deficiency Current visit: Yes Status: Acute Category: Medical Code(s): D80.3 - Selective deficiency of immunoglobulin G [IgG] subclasses (4) Left lower lobe consolidation Current visit: Yes Status: Ruled-out Category: Medical Code(s): J18.1 - Lobar pneumonia, unspecified organism (5) Dependence on supplemental oxygen Current visit: No Status: Acute Category: Medical Code(s): Z99.81 - Dependence on supplemental oxygen (6) Very severe chronic obstructive pulmonary disease Current visit: No Status: Acute Category: Medical Code(s): J44.9 - Chronic obstructive pulmonary disease, unspecified (7) Elevated troponin Current visit: Yes Status: Acute Category: Medical Code(s): R74.8 - Abnormal levels of other serum enzymes (8) Cardiomyopathy Current visit: Yes Status: Acute Category: Medical Code(s): I42.9 - Cardiomyopathy, unspecified (9) Acute systolic heart failure Current visit: Yes Status: Acute Category: Medical Code(s): I50.21 - Acute systolic (congestive) heart failure (10) MRSA (methicillin resistant staph aureus) culture positive Current visit: Yes Status: Acute Category: Medical Code(s): Z22.322 - Carrier or suspected carrier of Methicillin resistant Staphylococcus aureus (11) Nausea Current visit: Yes Status: Acute Category: Medical Code(s): R11.0 - Nausea (12) Insomnia Current visit: Yes Status: Acute Category: Medical Code(s): G47.00 - Insomnia, unspecified (13) Chronic respiratory failure Current visit: Yes Status: Acute Category: Medical Code(s): J96.10 - Chronic respiratory failure, unspecified whether with hypoxia or hypercapnia (14) Hypokalemia Current visit: Yes Status: Acute Category: Medical Code(s): E87.6 - Hypokalemia - Assessment and plan all Dx Assessment and Plan for all problems:: BASED ON VANCOMYCIN TROUGH LEVEL AND PATIENT FACTORS, RECOMMEND CONTINUING VANCOMYCIN 1250 MG IV Q24H. PHARMACY WILL CONTINUE TO MONITOR DAILY AND ADJUST APPROPRIATE.
[2018-09-22 07:00] LABS: Anion Gap 6.1 mEq/L (5-15); Potassium 3.1 mmoL/L (3.5-5.1)
--- NOTE | 2018-09-22 07:45 | Progress Note ---
Internal Medicine - PN: Subj *Date: 09/22/18 *Time: 07:42 Interval history: Patient is without any new complaints. Her appetite remains poor although has improved over the last 5 days. She is remained comfortable on nasal cannula and is using the trilogy device at night.. She denies chest pain. She was unable to ambulate very far yesterday taking may be a few steps with the aid of her walker. She admits her feet feel as if they are going to give out when she is walking and she has pain in the right hip. This hip was previously fractured and had surgical pinning but patient has been told that the bone around the pins is osteoporotic and crumbling and ultimately she needs a hip replacement but her lungs make her a poor candidate for surgery Exam Vital signs and Labs for Last 24 Hours: Temp Pulse Resp BP Pulse Ox 97.7 F 62 18 108/45 L 97 09/22/18 04:00 09/22/18 06:26 09/22/18 04:00 09/22/18 04:00 09/22/18 06:26 Laboratory Results - last 24 hr 09/22/18 06:31: Sodium 140, Potassium 3.1 L, Chloride 101, Carbon Dioxide 36 H, Anion Gap 6.1, BUN 32 H, Creatinine 1.08 H D, Estimated Creat Clear 63, Estimated GFR 50 L, Est GFR ( Amer) 61 D, Glucose 93, Calcium 8.0 L I & O for Last 24 hours: Intake & Output 09/19/18 09/20/18 09/21/18 09/22/18 11:59 11:59 11:59 11:59 Intake Total 680 / 680 1800 / 1800 2120 / 2120 720 / 720 Output Total 1700 / 1700 200 / 200 1410 / 1410 125 / 125 Balance -1020 / -1020 1600 / 1600 710 / 710 595 / 595 Weight 172 lb 3 oz 175 lb 6 oz 176 lb 4 oz 181 lb 4 oz Narrative: She appears comfortable. Lung exam reveals left basilar crackles and faint expiratory wheezes. Cough is rhonchous. Extremities are without edema Assessment and Plan (1) Non-STEMI (non-ST elevated myocardial infarction) Current visit: Yes Status: Acute Category: Medical Code(s): I21.4 - Non-ST elevation (NSTEMI) myocardial infarction (2) Acute and chronic respiratory failure Current visit: Yes Status: Acute Category: Medical Code(s): J96.20 - Acute and chronic respiratory failure, unspecified whether with hypoxia or hypercapnia (3) IgG subclass deficiency Current visit: Yes Status: Acute Category: Medical Code(s): D80.3 - Selective deficiency of immunoglobulin G [IgG] subclasses (4) Left lower lobe consolidation Current visit: Yes Status: Ruled-out Category: Medical Code(s): J18.1 - Lobar pneumonia, unspecified organism (5) Dependence on supplemental oxygen Current visit: No Status: Acute Category: Medical Code(s): Z99.81 - Dependence on supplemental oxygen (6) Very severe chronic obstructive pulmonary disease Current visit: No Status: Acute Category: Medical Code(s): J44.9 - Chronic obstructive pulmonary disease, unspecified (7) Elevated troponin Current visit: Yes Status: Acute Category: Medical Code(s): R74.8 - Abnormal levels of other serum enzymes (8) Cardiomyopathy Current visit: Yes Status: Acute Category: Medical Code(s): I42.9 - Cardiomyopathy, unspecified (9) Acute systolic heart failure Current visit: Yes Status: Acute Category: Medical Code(s): I50.21 - Acute systolic (congestive) heart failure (10) MRSA (methicillin resistant staph aureus) culture positive Current visit: Yes Status: Acute Category: Medical Code(s): Z22.322 - Carrier or suspected carrier of Methicillin resistant Staphylococcus aureus (11) Nausea Current visit: Yes Status: Acute Category: Medical Code(s): R11.0 - Nausea (12) Insomnia Current visit: Yes Status: Acute Category: Medical Code(s): G47.00 - Ins omnia, unspecified (13) Chronic respiratory failure Current visit: Yes Status: Acute Category: Medical Code(s): J96.10 - Chronic respiratory failure, unspecified whether with hypoxia or hypercapnia (14) Hypokalemia Current visit: Yes Status: Acute Category: Medical Code(s): E87.6 - Hypokalemia - Assessment and plan all Dx Assessment and Plan for all problems:: 1. Proceed with left heart catheterization 2. Pulmonary rehab evaluation at some point today 3. Potassium has decreased slightly and her oral potassium dose will be increased
--- NOTE | 2018-09-22 08:08 | Progress Note ---
Subjective Date: 09/22/18 Time: 08:05 Principal diagnosis: Acute on chronic respiratory failure, shortness of breath, COPD Interval history: 72-year-old white female in the bed in no acute distress. Denies any chest pain over the weekend. States her breathing has continued to gradually improved. She is much more alert and talkative without respiratory distress. Patient is anxious to get her cardiac catheterization to find out about her heart. Exam Vital signs and Labs for Last 24 Hours: Temp Pulse Resp BP Pulse Ox 97.7 F 62 18 108/45 L 97 09/22/18 04:00 09/22/18 06:26 09/22/18 04:00 09/22/18 04:00 09/22/18 06:26 Laboratory Results - last 24 hr 09/22/18 06:31: Sodium 140, Potassium 3.1 L, Chloride 101, Carbon Dioxide 36 H, Anion Gap 6.1, BUN 32 H, Creatinine 1.08 H D, Estimated Creat Clear 63, Estimated GFR 50 L, Est GFR ( Amer) 61 D, Glucose 93, Calcium 8.0 L I & O for Last 24 hours: Intake & Output 09/19/18 09/20/18 09/21/18 09/22/18 11:59 11:59 11:59 11:59 Intake Total 680 / 680 1800 / 1800 2120 / 2120 720 / 720 Output Total 1700 / 1700 200 / 200 1410 / 1410 125 / 125 Balance -1020 / -1020 1600 / 1600 710 / 710 595 / 595 Weight 172 lb 3 oz 175 lb 6 oz 176 lb 4 oz 181 lb 4 oz - *Routine HEENT Exam Head: Present: normocephalic Eye: Present: EOMI, PERRL ENT: Present: mucous membranes moist - *Routine Respiratory Exam Present: decreased breath sounds, wheezes. Absent: accessory muscle use, rales, rhonchi - *Routine Cardiovascular Exam Present: RRR. Absent: murmur, gallop, rubs - *Routine Neurological Exam Present: alert, oriented X3, moving all extremities Progress Note: A&P (1) Non-STEMI (non-ST elevated myocardial infarction) Status: Acute Current Visit: Yes (2) Acute and chronic respiratory failure Status: Acute Current Visit: Yes (3) IgG subclass deficiency Status: Acute Current Visit: Yes (4) Left lower lobe consolidation Status: Ruled-out Current Visit: Yes (5) Dependence on supplemental oxygen Status: Acute Current Visit: No (6) Very severe chronic obstructive pulmonary disease Status: Acute Current Visit: No (7) Elevated troponin Status: Acute Current Visit: Yes (8) Cardiomyopathy Status: Acute Current Visit: Yes (9) Acute systolic heart failure Status: Acute Current Visit: Yes (10) MRSA (methicillin resistant staph aureus) culture positive Status: Acute Current Visit: Yes (11) Nausea Status: Acute Current Visit: Yes (12) Insomnia Status: Acute Current Visit: Yes (13) Chronic respiratory failure Status: Acute Current Visit: Yes (14) Hypokalemia Status: Acute Current Visit: Yes Assessment and Plan for All Diagnoses:: 1. Proceed with left heart catheterization today due to NSTEMI, felt secondary to respiratory distress, and cardiomyopathy 2. Further recommendations to follow pending above results 3. Discussed LifeVest but patient is severely claustrophobic and does not feel that she would want to try wearing this.
[2018-09-23 07:22] LABS: Basophils % 0.2 % (0.1-2.0); Eosinophils # 0.3 K/mm3 (0.0-0.4); Eosinophils % 2.9 % (0.1-12.0); Hemoglobin 8.9 g/dL (12.2-16.2); Lymphocytes # 1.5 K/mm3 (0.7-4.5); Lymphocytes % 17.6 % (10-50); Mean Corpuscular HGB Conc 34.3 g/dL (31.8-35.4); Mean Corpuscular Hemoglobin 29.6 pg (27.0-31.2); Mean Corpuscular Volume 86.4 fl (81-99); Mean Platelet Volume 6.6 fl (7.4-10.4); Monocytes # 0.4 K/mm3 (0.1-1.0); Monocytes % 5.1 % (1.7-9.3); Neutrophils # 6.4 K/mm3 (1.8-7.8); Neutrophils % 74.3 % (37.0-80.0); Platelet Count 217 K/mm3 (142-424); Red Blood Count 3.01 M/mm3 (4.20-5.40); Red Cell Distribution Width 14.8 % (11.5-17.5); White Blood Count 8.7 K/mm3 (4.8-10.8)
--- NOTE | 2018-09-23 07:30 | Progress Note ---
Internal Medicine - PN: Subj *Date: 09/23/18 *Time: 07:28 Interval history: Patient has no complaints this morning. Cardiac catheterization yesterday revealed nonobstructive disease. Search for long term facility for short- term rehab has so far failed. Patient asks about possibility of swing bed. Exam Vital signs and Labs for Last 24 Hours: Temp Pulse Resp BP Pulse Ox 98.2 F 81 20 115/52 L 97 09/23/18 04:00 09/23/18 06:01 09/23/18 04:00 09/23/18 04:00 09/23/18 06:01 I & O for Last 24 hours: Intake & Output 09/20/18 09/21/18 09/22/18 09/23/18 11:59 11:59 11:59 11:59 Intake Total 1800 / 1800 2120 / 2120 970 / 970 780 / 780 Output Total 200 / 200 1410 / 1410 125 / 125 525 / 525 Balance 1600 / 1600 710 / 710 845 / 845 255 / 255 Weight 175 lb 6 oz 176 lb 4 oz 181 lb 4 oz 181 lb 4 oz Narrative: Patient is sitting up in bed. Lung exam is similar to previous days with fair to poor aeration, faint expiratory wheezes. Assessment and Plan (1) Non-STEMI (non-ST elevated myocardial infarction) Current visit: Yes Status: Acute Category: Medical Code(s): I21.4 - Non-ST elevation (NSTEMI) myocardial infarction (2) Acute and chronic respiratory failure Current visit: Yes Status: Acute Category: Medical Code(s): J96.20 - Acute and chronic respiratory failure, unspecified whether with hypoxia or hypercapnia (3) IgG subclass deficiency Current visit: Yes Status: Acute Category: Medical Code(s): D80.3 - Selective deficiency of immunoglobulin G [IgG] subclasses (4) Left lower lobe consolidation Current visit: Yes Status: Ruled-out Category: Medical Code(s): J18.1 - Lobar pneumonia, unspecified organism (5) Dependence on supplemental oxygen Current visit: No Status: Acute Category: Medical Code(s): Z99.81 - Dependence on supplemental oxygen (6) Very severe chronic obstructive pulmonary disease Current visit: No Status: Acute Category: Medical Code(s): J44.9 - Chronic obstructive pulmonary disease, unspecified (7) Elevated troponin Current visit: Yes Status: Acute Category: Medical Code(s): R74.8 - Abnormal levels of other serum enzymes (8) Cardiomyopathy Current visit: Yes Status: Acute Category: Medical Code(s): I42.9 - Cardiomyopathy, unspecified (9) Acute systolic heart failure Current visit: Yes Status: Acute Category: Medical Code(s): I50.21 - Acute systolic (congestive) heart failure (10) MRSA (methicillin resistant staph aureus) culture positive Current visit: Yes Status: Acute Category: Medical Code(s): Z22.322 - Carrier or suspected carrier of Methicillin resistant Staphylococcus aureus (11) Nausea Current visit: Yes Status: Acute Category: Medical Code(s): R11.0 - Nausea (12) Insomnia Current visit: Yes Status: Acute Category: Medical Code(s): G47.00 - Insomnia, unspecified (13) Chronic respiratory failure Current visit: Yes Status: Acute Category: Medical Code(s): J96.10 - Chronic respiratory failure, unspecified whether with hypoxia or hypercapnia (14) Hypokalemia Current visit: Yes Status: Acute Category: Medical Code(s): E87.6 - Hypokalemia - Assessment and plan all Dx Assessment and Plan for all problems:: 1. PT and OT consults today in anticipation of seeking a swing bed through her insurance 2. Patient would benefit from an additional week of IV vancomycin for her MRSA infection (bronchitis)
[2018-09-23 07:33] LABS: Anion Gap 6.8 mEq/L (5-15); Potassium 3.8 mmoL/L (3.5-5.1)
--- NOTE | 2018-09-23 09:57 | Progress Note ---
Subjective Date: 09/23/18 Time: 09:51 Principal diagnosis: Acute on chronic respiratory failure, shortness of breath, COPD Interval history: 72-year-old white female in bedside chair in no acute distress. Shortness of breath continues but patient is pretty much back at her baseline. Results of cardiac cath reviewed with patient. Patient relates she is waiting on a swing bed for rehab. Exam Vital signs and Labs for Last 24 Hours: Temp Pulse Resp BP Pulse Ox 98.2 F 72 20 100/41 L 90 L 09/23/18 08:00 09/23/18 08:00 09/23/18 08:00 09/23/18 08:00 09/23/18 08:00 Laboratory Results - last 24 hr 09/23/18 07:09: WBC 8.7, RBC 3.01 L, Hgb 8.9 L, Hct 26.0 L, MCV 86.4, MCH 29.6, MCHC 34.3, RDW 14.8, Plt Count 217, MPV 6.6 L, Neut % (Auto) 74.3, Lymph % (Auto) 17.6, [place] % (Auto) 5.1, Eos % (Auto) 2.9, Baso % (Auto) 0.2, Neut # (Auto) 6.4, Lymph # (Auto) 1.5, [place] # (Auto) 0.4, Eos # (Auto) 0.3, Baso # (Auto) 0.0 09/23/18 07:09: Sodium 142, Potassium 3.8 D, Chloride 107, Carbon Dioxide 32, Anion Gap 6.8, BUN 24 H, Creatinine 0.94, Estimated Creat Clear 68, Estimated GFR 59, Est GFR ( Amer) 71, Glucose 100, Calcium 8.0 L I & O for Last 24 hours: Intake & Output 09/20/18 09/21/18 09/22/18 09/23/18 11:59 11:59 11:59 11:59 Intake Total 1800 / 1800 2120 / 2120 970 / 970 1020 / 1020 Output Total 200 / 200 1410 / 1410 125 / 125 525 / 525 Balance 1600 / 1600 710 / 710 845 / 845 495 / 495 Weight 175 lb 6 oz 176 lb 4 oz 181 lb 4 oz 181 lb 4 oz - *Routine HEENT Exam Head: Present: normocephalic Eye: Present: EOMI, PERRL ENT: Present: mucous membranes moist - *Routine Respiratory Exam Present: rhonchi, wheezes, diminished air movement. Absent: accessory muscle use, rales - *Routine Cardiovascular Exam Present: RRR. Absent: murmur, gallop, rubs - *Routine Extremities Exam Absent: edema, calf tenderness - *Routine Neurological Exam Present: alert, oriented X3, moving all extremities Progress Note: A&P (1) Non-STEMI (non-ST elevated myocardial infarction) Status: Acute Current Visit: Yes (2) Acute and chronic respiratory failure Status: Acute Current Visit: Yes (3) IgG subclass deficiency Status: Acute Current Visit: Yes (4) Left lower lobe consolidation Status: Ruled-out Current Visit: Yes (5) Dependence on supplemental oxygen Status: Acute Current Visit: No (6) Very severe chronic obstructive pulmonary disease Status: Acute Current Visit: No (7) Elevated troponin Status: Acute Current Visit: Yes (8) Cardiomyopathy Status: Acute Current Visit: Yes (9) Acute systolic heart failure Status: Acute Current Visit: Yes (10) MRSA (methicillin resistant staph aureus) culture positive Status: Acute Current Visit: Yes (11) Nausea Status: Acute Current Visit: Yes (12) Insomnia Status: Acute Current Visit: Yes (13) Chronic respiratory failure Status: Acute Current Visit: Yes (14) Hypokalemia Status: Acute Current Visit: Yes Assessment and Plan for All Diagnoses:: 1. Mild to moderate coronary artery disease by cardiac catheterization yesterday. Normalization of cardiac function noted. Would recommend switching carvedilol to metoprolol in the setting of severe COPD. Continue lisinopril therapy. 2. Continue Plavix therapy, home medication. 3. Nothing further to add at this point. Please call if needed.
--- NOTE | 2018-09-24 07:46 | Progress Note ---
Internal Medicine - PN: Subj *Date: 09/24/18 *Time: 07:45 Interval history: Patient has no new complaints this morning. She is sleeping well with use of the trilogy device at night. She did ambulate with her walker from the recliner to the bedside commode which is about 8 feet yesterday. She admits she felt unsteady on her feet and has persistent pain in the left hip. Exam Vital signs and Labs for Last 24 Hours: Temp Pulse Resp BP Pulse Ox 98.7 F 72 20 126/60 91 L 09/24/18 04:00 09/24/18 05:48 09/24/18 04:00 09/24/18 04:00 09/24/18 05:48 Laboratory Results - last 24 hr 09/23/18 22:19: Vancomycin Trough 19.4 I & O for Last 24 hours: Intake & Output 09/21/18 09/22/18 09/23/18 09/24/18 11:59 11:59 11:59 11:59 Intake Total 2120 / 2120 970 / 970 1020 / 1020 600 / 600 Output Total 1410 / 1410 125 / 125 525 / 525 850 / 850 Balance 710 / 710 845 / 845 495 / 495 -250 / -250 Weight 176 lb 4 oz 181 lb 4 oz 181 lb 4 oz 181 lb 4 oz Narrative: She is awake and alert. She lungs have expiratory wheezes. Heart has a regular rate and rhythm. Abdomen is soft Assessment and Plan (1) Non-STEMI (non-ST elevated myocardial infarction) Current visit: Yes Status: Acute Category: Medical Code(s): I21.4 - Non-ST elevation (NSTEMI) myocardial infarction (2) Acute and chronic respiratory failure Current visit: Yes Status: Acute Category: Medical Code(s): J96.20 - Acute and chronic respiratory failure, unspecified whether with hypoxia or hypercapnia (3) IgG subclass deficiency Current visit: Yes Status: Acute Category: Medical Code(s): D80.3 - Selective deficiency of immunoglobulin G [IgG] subclasses (4) Left lower lobe consolidation Current visit: Yes Status: Ruled-out Category: Medical Code(s): J18.1 - Lobar pneumonia, unspecified organism (5) Dependence on supplemental oxygen Current visit: No Status: Acute Category: Medical Code(s): Z99.81 - Dependence on supplemental oxygen (6) Very severe chronic obstructive pulmonary disease Current visit: No Status: Acute Category: Medical Code(s): J44.9 - Chronic obstructive pulmonary disease, unspecified (7) Elevated troponin Current visit: Yes Status: Acute Category: Medical Code(s): R74.8 - Abnormal levels of other serum enzymes (8) Cardiomyopathy Current visit: Yes Status: Acute Category: Medical Code(s): I42.9 - Cardiomyopathy, unspecified (9) Acute systolic heart failure Current visit: Yes Status: Acute Category: Medical Code(s): I50.21 - Acute systolic (congestive) heart failure (10) MRSA (methicillin resistant staph aureus) culture positive Current visit: Yes Status: Acute Category: Medical Code(s): Z22.322 - Carrier or suspected carrier of Methicillin resistant Staphylococcus aureus (11) Nausea Current visit: Yes Status: Acute Category: Medical Code(s): R11.0 - Nausea (12) Insomnia Current visit: Yes Status: Acute Category: Medical Code(s): G47.00 - Insomnia, unspecified (13) Chronic respiratory failure Current visit: Yes Status: Acute Category: Medical Code(s): J96.10 - Chronic respiratory failure, unspecified whether with hypoxia or hypercapnia (14) Hypokalemia Current visit: Yes Status: Acute Category: Medical Code(s): E87.6 - Hypokalemia - Assessment and plan all Dx Assessment and Plan for all problems:: Hopefully we will here today regarding insurance approval of swing bed request. At present continue current care.
[2018-09-24 07:50] LABS: Anion Gap 6.2 mEq/L (5-15); Calcium 8.1 mg/dL (8.5-10.1); Potassium 4.2 mmoL/L (3.5-5.1)
[2018-09-24 07:57] LABS: Basophils % 0.2 % (0.1-2.0); Eosinophils # 0.2 K/mm3 (0.0-0.4); Eosinophils % 2.5 % (0.1-12.0); Hematocrit 24.7 % (37.0-47.0); Hemoglobin 8.5 g/dL (12.2-16.2); Lymphocytes # 1.5 K/mm3 (0.7-4.5); Lymphocytes % 18.2 % (10-50); Mean Corpuscular HGB Conc 34.5 g/dL (31.8-35.4); Mean Corpuscular Hemoglobin 30.2 pg (27.0-31.2); Mean Corpuscular Volume 87.4 fl (81-99); Mean Platelet Volume 6.4 fl (7.4-10.4); Monocytes # 0.4 K/mm3 (0.1-1.0); Monocytes % 4.3 % (1.7-9.3); Neutrophils # 6.1 K/mm3 (1.8-7.8); Neutrophils % 74.8 % (37.0-80.0); Platelet Count 204 K/mm3 (142-424); Red Blood Count 2.83 M/mm3 (4.20-5.40); Red Cell Distribution Width 14.7 % (11.5-17.5); White Blood Count 8.2 K/mm3 (4.8-10.8)
--- NOTE | 2018-09-25 07:56 | Swing Bed Reports ---
*Admission Date: 09/14/18 *Chief complaint: shortness of breath *History of present illness: 72-year-old female with very severe COPD presented to the emergency department yesterday afternoon with less than 24 hours of worsening shortness of breath. History is obtained from her daughters who are at bedside this morning. The daughter reports the patient began complaining of shortness of breath yesterday morning upon awakening. As the day progressed she felt like she was worsening despite use of home nebs. Ultimately patient was brought to the emergency department. In the emergency department she was diagnosed with COPD exacerbation and possible left lower lobe pneumonia and decision was ultimately made to admit the patient for IV steroids and IV antibiotics. On admission to the floor a blood gas was performed which revealed acute on chronic hypercapnic respiratory failure. Patient was started on BiPAP. Patient has been on BiPAP many times before during hospitalizations and usually responds well. Overnight however the patient acutely decompensated with a drop in blood pressure. A rapi d response was called and the patient was intubated. Repeat blood gas prior to intubation showed worsening hypercapnia. Patient is currently intubated and family is at bedside. Patient was started on epinephrine overnight as a pressor. Patient is currently intubated. Discussion was had with the family regarding patient's wishes. They do report patient did wish for mechanical ventilation as long as it was not a long-term process. She had prior hospitalization at the [facility] where she was hospitalized for nearly 3 months with MRSA. This hospitalization is believed to be 2012. The patient's last hospitalization in April 2018 from RSV causing COPD exacerbation had significant impact on the patient regarding her baseline dyspnea. She did not recover well from that illness. Hospital Course Hospital Course: Patient was admitted and shortly after hospitalization was intubated. Patient had acute on chronic hypercapnic respiratory failure. Patient remained intubated for a little over 48 hours at which point she was able to be extubated. Patient had non-ST elevation MN during her episode of respiratory failure and cardiology was consulted. Because of the patient's fragile status decision was made to proceed with cardiac catheterization once patient had stabilized further. On September 22 patient underwent cardiac catheterization which revealed nonobstructive disease. Continued antiplatelet therapy was recommended. Patient's respiratory status remained stable. Dr. Martinez of pulmonary service was in-house and also evaluated the patient. Initially requested been made to transfer the patient due to her respiratory failure however when she was weaned the [facility] was contacted and transfer was canceled. Patient was supposed to be using BiPAP at home but had given this up at least a year prior due to discomfort from the BiPAP and associated claustrophobia. As she had worsening respiratory failure on BiPAP while hospitalized decision was made for a trial of the trilogy device. Patient tolerated this well and will continue using this at discharge. Patient sputum culture grew MRSA. Patient has a history of MRSA pneumonia but as there was no pneumonia identified during this hospitalization she was considered to have MRSA bronchitis. She was started on vancomycin and will complete 2 weeks of vancomycin. Patient had nausea as a complaint during hospitalization and has a history of candidal gastritis. Patient was started on oral fluconazole. EGD was requested by family but goal was to minimize episodes of sedation and upper GI was performed. Patient has immunoglobulin G subclass deficiency. Her infusion was supposed occurred the week she was hospitalized and intubated. Patient received her IgG on September 24, 2018. Because of the patient's prolonged hospitalization she was left quite weak. PT and OT were consulted and agreed that patient needed short-term rehab. Local [facility] were contacted but beds were unavailable. Swing bed was sought and this was approved through her insurance. On September 25 patient was discharged to a swing bed and will continue the rehabilitative process Exam Vital signs and Labs for Last 24 Hours: Temp Pulse Resp BP Pulse Ox 98.0 F 83 16 110/78 96 09/25/18 04:00 09/25/18 05:58 09/25/18 04:00 09/25/18 04:00 09/25/18 05:58 Laboratory Results - last 24 hr 09/24/18 07:14: WBC 8.2, RBC 2.83 L, Hgb 8.5 L, Hct 24.7 L, MCV 87.4, MCH 30.2, MCHC 34.5, RDW 14.7, Plt Count 204, MPV 6.4 L, Neut % (Auto) 74.8, Lymph % (Auto) 18.2, [place] % (Auto) 4.3, Eos % (Auto) 2.5, Baso % (Auto) 0.2, Neut # (Auto) 6.1, Lymph # (Auto) 1.5, [place] # (Auto) 0.4, Eos # (Auto) 0.2, Baso # (Auto) 0.0 09/24/18 07:14: Sodium 141, Potassium 4.2, Chloride 107, Carbon Dioxide 32, Anion Gap 6.2, BUN 15 D, Creatinine 0.79, Estimated Creat Clear 68, Estimated GFR 72, Est GFR ( Amer) 87 D, Glucose 98, Calcium 8.1 L I & O for Last 24 hours: Intake & Output 09/22/18 09/23/18 09/24/18 09/25/18 11:59 11:59 11:59 11:59 Intake Total 970 / 970 1020 / 1020 960 / 960 1852 / 1852 Output Total 125 / 125 525 / 525 850 / 850 1800 / 1800 Balance 845 / 845 495 / 495 110 / 110 52 / 52 Weight 181 lb 4 oz 181 lb 4 oz 181 lb 4 oz 180 lb 2 oz Narrative: On the day of discharge the patient appears comfortable. Lung exam has expiratory wheezes with fair aeration. Heart has a regular rate and rhythm. Extremities are without edema. Results Labs on day of discharge: Labs from last 24 hours 09/24/18 09/24/18 07:14 07:14 WBC 8.2 RBC 2.83 L Hgb 8.5 L Hct 24.7 L MCV 87.4 MCH 30.2 MCHC 34.5 RDW 14.7 Plt Count 204 MPV 6.4 L Neut % (Auto) 74.8 Lymph % (Auto) 18.2 [place] % (Auto) 4.3 Eos % (Auto) 2.5 Baso % (Auto) 0.2 Neut # (Auto) 6.1 Lymph # (Auto) 1.5 [place] # (Auto) 0.4 Eos # (Auto) 0.2 Baso # (Auto) 0.0 Sodium 141 Potassium 4.2 Chloride 107 Carbon Dioxide 32 Anion Gap 6.2 BUN 15 D Creatinine 0.79 Estimated Creat Clear 68 Estimated GFR 72 Est GFR ( Amer) 87 D Glucose 98 Calcium 8.1 L DS: Diagnosis - Discharge Diagnosis (1) Acute and chronic respiratory failure Status: Acute (2) Non-STEMI (non-ST elevated myocardial infarction) Status: Acute (3) IgG subclass deficiency Status: Acute (4) Dependence on supplemental oxygen Status: Acute (5) Very severe chronic obstructive pulmonary disease Status: Acute (6) Elevated troponin Status: Acute (7) Cardiomyopathy Status: Acute (8) Acute systolic heart failure Status: Acute (9) MRSA (methicillin resistant staph aureus) culture positive Status: Acute (10) Nausea Status: Acute (11) Insomnia Status: Acute (12) Chronic respiratory failure Status: Acute (13) Hypokalemia Status: Acute Discharge/Transfer (Swing Bed) - Plan of Care Resident has been informed of condition and prognosis?: Yes Mobility Status: ambulatory with assistance Goal of treatment:: Return to prior level of function Rehab Potential: Fair Prognosis:: Fair Mental Status: Average I concur with the most recent H&P: Yes Date of most recent H&P: 09/14/18 Certification: I have reviewed and agree with this resident's plan of care. I certify that post-hospital nursing home facility services are required to be given on an inpatient basis because of the need for nursing home care on a continuing basis for the condition(s) for which he/she is receiving inpatient hospital services prior to admission to swing bed. I also certify that the resident meets existing SNF level of care definition. - Discharge from Acute Disposition: [facility] Swing Bed Condition: Good Current Home Med List: Home Medications Medication Instructions Recorded Confirmed Type Sucralfate [Sucralfate 1gm 1 gm PO BID 09/14/18 09/15/18 History Tab] Nadolol [Corgard] 20 mg PO BID 09/15/18 09/15/18 History Tiotropium Reading [Spiriva 1 puff IH DAILY 09/15/18 09/15/18 History 18mcg/puff inhaler] Hydrocortisone 2.5 mg PO HS 09/16/18 09/16/18 History Hydrocortisone 5 mg PO DAILY 09/16/18 09/16/18 History Home Med List for Swing Bed: Continued Montelukast Sodium [Montelukast 10mg Tab] 10 mg PO HS Albuterol Sulfate [Proair Hfa 90mcg/puff Inh] 2 puffs IH Q4HP PRN PRN Reason: Shortness Of Breath Or Wheezing Sertraline HCl [Zoloft] 100 mg PO DAILY Polyethylene Glycol 3350 [Miralax 17gm Packet] 17 gm PO DAILYP PRN PRN Reason: Constipation Pantoprazole Sodium [Protonix 40mg tablet] 40 mg PO DAILY Multivitamin [Multivitamins] 1 each PO DAILY Mirabegron [Myrbetriq] 50 mg PO DAILY Loratadine [Claritin] 10 mg PO DAILY Ipratropium Reading [Atrovent 0.5mg/2.5mL neb] 0.5 mg IH BIDP PRN PRN Reason: Shortness Of Breath Or Wheezing Ferrous Sulfate [Iron] 325 mg PO DAILY Buspirone HCl [Buspar 10mg tablet] 10 mg PO BID Bumetanide 2 mg PO DAILY Budesonide/Formoterol Fumarate [Symbicort 160-4.5 Mcg Inhaler] 2 puffs IH BID Bacillus Coagulans [Probiotic] 1 each PO DAILY Azelastine/Fluticasone [Dymista Nasal Albert] 1 spray NS BID Albuterol Sulfate [Albuterol 0.083% 2.5mg/3mL neb] 2.5 mg IH Q6HP PRN PRN Reason: Shortness Of Breath Or Wheezing Potassium Chloride [Micro-K 10mEq cap] 20 meq PO DAILY Trazodone HCl 100 mg PO HS Acetaminophen [Acetaminophen 325mg tab] 325 mg PO Q6HP PRN PRN Reason: As Needed For Fever Or Pain Ondansetron [Ondansetron Odt 8mg Tab] 8 mg PO DAILY Sucralfate [Sucralfate 1gm Tab] 1 gm PO BID Nadolol [Corgard] 20 mg PO BID Tiotropium Reading [Spiriva 18mcg/puff inhaler] 1 puff IH DAILY Hydrocortisone 2.5 mg PO HS Aspirin [Aspirin 81mg EC Tab] 81 mg PO DAILY Pilocarpine HCl [Salagen] 7.5 mg PO TIDP PRN PRN Reason: DRY MOUTH Cholecalciferol (Vitamin D3) [Vitamin D3] 400 unit PO DAILY Guaifenesin/Dextromethorphan [Guaifenesin-Dm Solution] 10 ml PO Q4HP PRN #200 liquid PRN Reason: Cough Roflumilast [Daliresp] 500 mcg PO DAILY Pregabalin [Lyrica 150mg Cap] 150 mg PO HS #30 cap Acetylcysteine [Mucomyst 20% 4mL vial] 1 ml INHALATION TIDRT Hydrocortisone 5 mg PO DAILY No Action Clopidogrel Bisulfate [Plavix 75mg Tab] 75 mg PO DAILY
== END 2018-09-25 09:27 | disposition swing bed (61) | DRG 208 ==
LOC: ER 11:17 → 2ND 11:17 → ER 13:17 → OBSVTOIN 15:38 → 2ND 15:39 → ICU 09-15 12:44 → 2ND 09-19 14:23
PROVIDERS: ADMIT Internal Medicine Adolescent Medicine; ATTEND Family Medicine
CPT/HCPCS: 36415; 71010; 71045; 73502; 80048; 80053; 80202; 81001; 82784; 82787; 82803; 82962; 83605; 83735; 83880; 84484; 85007; 85025; 85378; 87040; 87070; 87077; 87086; 87186; 87205; 87486; 87581; 87633; 87798; 93005; 93306; 93458; 93970; 94002; 94003; 94640; 94660; 94761; 96375; 97110; 97116; 97161; 97165; 97535; 99152; 99285; C1725; C1769; J1568; J1644; J2405; J2704; J3370; Q9967

== ENCOUNTER 2018-09-25 09:33 | Inpatient (IN) ==
--- NOTE | 2018-09-25 11:50 | Pharmacy Consult Notes ---
[facility] Pharmacy VTE Monitoring - Patient Demographics Admission date: 09/25/18 Report Date: 09/25/18 Time: 11:50 Allergies/Adverse Reactions: Patient Allergies hydrocodone [HYDROCODONE] Allergy (Severe, Verified 03/30/18 01:49) dizziness, n/v metoclopramide [From REGLAN] Allergy (Severe, Verified 03/30/18 01:49) Swelling of Lip/Tongue/Throat codeine [CODEINE] Allergy (Intermediate, Verified 03/30/18 01:49) dizziness. n/v Sulfa (Sulfonamide Antibiotics) [SULFA (SULFONAMIDE ANTIBIOTICS)] Adverse Reaction (Mild, Verified 03/30/18 01:49) n/v Height: 1.52 m Weight: 81.7 kg - Prophylaxis VTE Prophylaxis Ordered?: Yes Types of VTE Prophylaxis: TEDS Knee High Location of Applied Device: Bilateral Lower Extremeties
--- NOTE | 2018-09-26 07:18 | Progress Note ---
Internal Medicine - PN: Subj *Date: 09/26/18 *Time: 07:15 Interval history: Patient has no complaints this morning. She awoke early this morning around 3 AM and decided to sit in the chair. She admits to some discomfort in the buttocks from laying so much. Patient had a normal upper GI yesterday Exam Vital signs and Labs for Last 24 Hours: Temp Pulse Resp BP Pulse Ox 98.3 F 87 18 107/50 L 95 09/26/18 04:00 09/26/18 06:06 09/26/18 04:00 09/26/18 04:00 09/26/18 06:06 I & O for Last 24 hours: Intake & Output 09/23/18 09/24/18 09/25/18 09/26/18 11:59 11:59 11:59 11:59 Intake Total 480 / 480 Output Total 900 / 900 Balance -420 / -420 Weight 180 lb 1.883 oz 186 lb 3 oz Narrative: Patient is in no distress. Lung exam reveals fair aeration with some expiratory wheezes. Heart has a regular rate and rhythm. Extremities are without edema Assessment and Plan (1) Gastritis Current visit: Yes Status: Acute Category: Medical Code(s): K29.70 - Gastritis, unspecified, without bleeding (2) Acute and chronic respiratory failure Current visit: No Status: Acute Category: Medical Code(s): J96.20 - Acute and chronic respiratory failure, unspecified whether with hypoxia or hypercapnia (3) Anxiety Current visit: No Status: Acute Category: Medical Code(s): F41.9 - Anxiety disorder, unspecified (4) COPD exacerbation Current visit: No Status: Acute Category: Medical Code(s): J44.1 - Chronic obstructive pulmonary disease with (acute) exacerbation (5) Cardiomyopathy Current visit: No Status: Acute Category: Medical Code(s): I42.9 - Cardiomyopathy, unspecified (6) Dependence on supplemental oxygen Current visit: No Status: Acute Category: Medical Code(s): Z99.81 - Dependence on supplemental oxygen (7) Insomnia Current visit: No Status: Acute Category: Medical Code(s): G47.00 - Insomnia, unspecified (8) MRSA (methicillin resistant staph aureus) culture positive Current visit: No Status: Acute Category: Medical Code(s): Z22.322 - Carrier or suspected carrier of Methicillin resistant Staphylococcus aureus (9) Non-STEMI (non-ST elevated myocardial infarction) Current visit: No Status: Acute Category: Medical Code(s): I21.4 - Non-ST elevation (NSTEMI) myocardial infarction (10) Very severe chronic obstructive pulmonary disease Current visit: No Status: Acute Category: Medical Code(s): J44.9 - Chronic obstructive pulmonary disease, unspecified - Assessment and plan all Dx Assessment and Plan for all problems:: Continue PT and OT. No change in medications.
--- NOTE | 2018-09-27 07:13 | Progress Note ---
Internal Medicine - PN: Subj *Date: 09/27/18 *Time: 07:12 Interval history: Patient without complaints this morning. She would like her diet changed although we explained because of her myocardial infarction its best that she remain on a cardiac diet. She was able to ambulate a little bit farther yesterday than she did the day before and continues to work with therapy twice daily Exam Vital signs and Labs for Last 24 Hours: Temp Pulse Resp BP Pulse Ox 98.6 F 83 24 98/51 L 96 09/26/18 20:03 09/26/18 21:15 09/26/18 21:15 09/26/18 20:03 09/26/18 20:03 Laboratory Results - last 24 hr 09/26/18 22:40: Vancomycin Trough 25.2 H I & O for Last 24 hours: Intake & Output 09/24/18 09/25/18 09/26/18 09/27/18 11:59 11:59 11:59 11:59 Intake Total 1210 / 1210 970 / 970 Output Total 900 / 900 300 / 300 Balance 310 / 310 670 / 670 Weight 180 lb 1.883 oz 186 lb 3 oz 179 lb 5 oz Assessment and Plan (1) Gastritis Current visit: Yes Status: Acute Category: Medical Code(s): K29.70 - Gastritis, unspecified, without bleeding (2) Acute and chronic respiratory failure Current visit: No Status: Acute Category: Medical Code(s): J96.20 - Acute and chronic respiratory failure, unspecified whether with hypoxia or hypercapnia (3) Anxiety Current visit: No Status: Acute Category: Medical Code(s): F41.9 - Anxiety disorder, unspecified (4) COPD exacerbation Current visit: No Status: Acute Category: Medical Code(s): J44.1 - Chronic obstructive pulmonary disease with (acute) exacerbation (5) Cardiomyopathy Current visit: No Status: Acute Category: Medical Code(s): I42.9 - Cardiomyopathy, unspecified (6) Dependence on supplemental oxygen Current visit: No Status: Acute Category: Medical Code(s): Z99.81 - Dependence on supplemental oxygen (7) Insomnia Current visit: No Status: Acute Category: Medical Code(s): G47.00 - Insomnia, unspecified (8) MRSA (methicillin resistant staph aureus) culture positive Current visit: No Status: Acute Category: Medical Code(s): Z22.322 - Carrier or suspected carrier of Methicillin resistant Staphylococcus aureus (9) Non-STEMI (non-ST elevated myocardial infarction) Current visit: No Status: Acute Category: Medical Code(s): I21.4 - Non-ST elevation (NSTEMI) myocardial infarction (10) Very severe chronic obstructive pulmonary disease Current visit: No Status: Acute Category: Medical Code(s): J44.9 - Chronic obstructive pulmonary disease, unspecified - Assessment and plan all Dx Assessment and Plan for all problems:: Continue rehabilitation as well as IV vancomycin
--- NOTE | 2018-09-27 13:22 | Pharmacy Consult Notes ---
- Pharmacy Consult Date: 09/27/18 Time: 13:21 Referring provider: Gilbert REID Reason for Consult:: VANCOMYCIN TROUGH LEVEL Allergies and ADEs:: Allergies Allergy/AdvReac Type Severity Reaction Status Date / Time hydrocodone [HYDROCODONE] Allergy Severe dizziness, Verified 03/30/18 01:49 n/v metoclopramide [From REGLAN] Allergy Severe Swelling Verified 03/30/18 01:49 of Lip/Tongue/Throat codeine [CODEINE] Allergy Intermediate dizziness. Verified 03/30/18 01:49 n/v Sulfa (Sulfonamide AdvReac Mild n/v Verified 03/30/18 01:49 Antibiotics) [SULFA (SULFONAMIDE ANTIBIOTICS)] Home Medications:: Home Medications Medication Instructions Recorded Confirmed Type Albuterol Sulfate [Albuterol 2.5 mg IH Q6HP PRN 05/24/17 09/25/18 History 0.083% 2.5mg/3mL neb] Albuterol Sulfate [Proair Hfa 2 puffs IH Q4HP PRN 05/24/17 09/25/18 History 90mcg/puff Inh] Aspirin [Aspirin 81mg EC Tab] 81 mg PO DAILY 05/24/17 09/25/18 History Azelastine/Fluticasone [Dymista 1 spray NS BID 05/24/17 09/25/18 History Nasal [place]] Bacillus Coagulans [Probiotic] 1 each PO DAILY 05/24/17 09/25/18 History Budesonide/Formoterol Fumarate 2 puffs IH BID 05/24/17 09/25/18 History [Symbicort 160-4.5 Mcg Inhaler] Bumetanide 2 mg PO DAILY 05/24/17 09/25/18 History Buspirone HCl [Buspar 10mg tablet] 10 mg PO BID 05/24/17 09/25/18 History Cholecalciferol (Vitamin D3) 400 unit PO DAILY 05/24/17 09/25/18 History [Vitamin D3] Ferrous Sulfate [Iron] 325 mg PO DAILY 05/24/17 09/25/18 History Ipratropium [place] [Atrovent 0.5 mg IH BIDP PRN 05/24/17 09/25/18 History 0.5mg/2.5mL neb] Loratadine [Claritin] 10 mg PO DAILY 05/24/17 09/25/18 History Mirabegron [Myrbetriq] 50 mg PO DAILY 05/24/17 09/25/18 History Montelukast Sodium [Montelukast 10 mg PO HS 05/24/17 09/25/18 History 10mg Tab] Multivitamin [Multivitamins] 1 each PO DAILY 05/24/17 09/25/18 History Pantoprazole Sodium [Protonix 40mg 40 mg PO DAILY 05/24/17 09/25/18 History tablet] Pilocarpine HCl [Salagen] 7.5 mg PO TIDP PRN 05/24/17 09/25/18 History Polyethylene Glycol 3350 [Miralax 17 gm PO DAILYP PRN 05/24/17 09/25/18 History 17gm Packet] Sertraline HCl [Zoloft] 100 mg PO DAILY 05/24/17 09/25/18 History Guaifenesin/Dextromethorphan 10 ml PO Q4HP PRN #200 liquid 03/30/18 09/25/18 Rx [Guaifenesin-Dm Solution] Potassium Chloride [Micro-K 10mEq 20 meq PO DAILY 05/21/18 09/25/18 History cap] Roflumilast [Daliresp] 500 mcg PO DAILY 05/21/18 09/25/18 History Acetaminophen [Acetaminophen 325mg 325 mg PO Q6HP PRN 05/22/18 09/25/18 History tab] Ondansetron [Ondansetron Odt 8mg 8 mg PO DAILY 05/22/18 09/25/18 History Tab] Trazodone HCl 100 mg PO HS 05/22/18 09/25/18 History Pregabalin [Lyrica 150mg Cap] 150 mg PO HS #30 cap 05/26/18 09/25/18 Rx Acetylcysteine [Mucomyst 20% 4mL 1 ml INHALATION TIDRT 06/10/18 09/25/18 History vial] Sucralfate [Sucralfate 1gm 1 gm PO BID 09/14/18 09/25/18 History Tab] Nadolol [Corgard] 20 mg PO BID 09/15/18 09/25/18 History Tiotropium [place] [Spiriva 1 puff IH DAILY 09/15/18 09/25/18 History 18mcg/puff inhaler] Hydrocortisone 2.5 mg PO HS 09/16/18 09/25/18 History Hydrocortisone 5 mg PO DAILY 09/16/18 09/25/18 History Clopidogrel Bisulfate [Plavix 75mg 75 mg PO DAILY 09/25/18 09/25/18 History Tab] Height: 1.52 m Weight: 81.335 kg Laboratory Results:: Laboratory Results - last 24 hr 09/26/18 22:40: Vancomycin Trough 25.2 H Medical History: Reports:: Anxiety, Congestive Heart Failure, Chronic Obstructive Pulmonary Disease (COPD), Gastroesophageal Reflux Disease(GERD), Hypertension Denies:: Cancer, Diabetes Mellitus Type 1, Diabetes Mellitus Type 2, MRSA Assessment and Plan (1) Gastritis Current visit: Yes Status: Acute Category: Medical Code(s): K29.70 - Gastritis, unspecified, without bleeding (2) Acute and chronic respiratory failure Current visit: No Status: Acute Category: Medical Code(s): J96.20 - Acute and chronic respiratory failure, unspecified whether with hypoxia or hypercapnia (3) Anxiety Current visit: No Status: Acute Category: Medical Code(s): F41.9 - Anxiety disorder, unspecified (4) COPD exacerbation Current visit: No Status: Acute Category: Medical Code(s): J44.1 - Chronic obstructive pulmonary disease with (acute) exacerbation (5) Cardiomyopathy Current visit: No Status: Acute Category: Medical Code(s): I42.9 - Cardiomyopathy, unspecified (6) Dependence on supplemental oxygen Current visit: No Status: Acute Category: Medical Code(s): Z99.81 - Dependence on supplemental oxygen (7) Insomnia Current visit: No Status: Acute Category: Medical Code(s): G47.00 - Insomnia, unspecified (8) MRSA (methicillin resistant staph aureus) culture positive Current visit: No Status: Acute Category: Medical Code(s): Z22.322 - Carrier or suspected carrier of Methicillin resistant Staphylococcus aureus (9) Non-STEMI (non-ST elevated myocardial infarction) Current visit: No Status: Acute Category: Medical Code(s): I21.4 - Non-ST elevation (NSTEMI) myocardial infarction (10) Very severe chronic obstructive pulmonary disease Current visit: No Status: Acute Category: Medical Code(s): J44.9 - Chronic obstructive pulmonary disease, unspecified - Assessment and plan all Dx Assessment and Plan for all problems:: BASED ON VANCOMYCIN TROUGH LEVEL AND PATIENT FACTORS, RECOMMEND CHANGING INTERVAL TO VANCOMYCIN 1250 MG IV Q36H. TODAY IS DAY 13 OF VANCOMYCIN THERAPY. PHARMACY WILL CONTINUE TO MONITOR DAILY AND ADJUST APPROPRIATE.
--- NOTE | 2018-09-29 07:30 | Progress Note ---
Internal Medicine - PN: Subj *Date: 09/29/18 *Time: 07:27 Interval history: Patient has a new complaint of pain between the fourth and fifth toe on the right foot this morning. It is painful to walk. She continues to ambulate with use of a walker. She denies any significant shortness of breath with ambulation. She would prefer a regular diet but I did explain to her that due to her non-ST elevation CA that she needs a low-salt diet Exam Vital signs and Labs for Last 24 Hours: Temp Pulse Resp BP Pulse Ox 3 F L 79 20 118/55 L 97 09/28/18 20:00 09/29/18 06:04 09/28/18 20:00 09/28/18 20:00 09/29/18 06:04 I & O for Last 24 hours: Intake & Output 09/26/18 09/27/18 09/28/18 09/29/18 11:59 11:59 11:59 11:59 Intake Total 1210 / 1210 1460 / 1460 1570 / 1570 970 / 970 Output Total 900 / 900 300 / 300 1750 / 1750 1200 / 1200 Balance 310 / 310 1160 / 1160 -180 / -180 -230 / -230 Weight 186 lb 3 oz 179 lb 5 oz 180 lb 180 lb 0.013 oz Narrative: She looks comfortable sitting up on the side of the bed eating breakfast. There is no respiratory distress. Lungs have fair aeration with expiratory wheezes that are faint. Heart has a regular rate and rhythm. Skin exam reveals some tinea pedis between the fourth and fifth toes of the right foot Assessment and Plan (1) Acute and chronic respiratory failure Current visit: No Status: Acute Category: Medical Code(s): J96.20 - Acute and chronic respiratory failure, unspecified whether with hypoxia or hypercapnia (2) Gastritis Current visit: Yes Status: Acute Category: Medical Code(s): K29.70 - Gastritis, unspecified, without bleeding (3) Anxiety Current visit: No Status: Acute Category: Medical Code(s): F41.9 - Anxiety disorder, unspecified (4) COPD exacerbation Current visit: No Status: Acute Category: Medical Code(s): J44.1 - Chronic obstructive pulmonary disease with (acute) exacerbation (5) Cardiomyopathy Current visit: No Status: Acute Category: Medical Code(s): I42.9 - Cardiomyopathy, unspecified (6) Dependence on supplemental oxygen Current visit: No Status: Acute Category: Medical Code(s): Z99.81 - Dependence on supplemental oxygen (7) Insomnia Current visit: No Status: Acute Category: Medical Code(s): G47.00 - Insomnia, unspecified (8) MRSA (methicillin resistant staph aureus) culture positive Current visit: No Status: Acute Category: Medical Code(s): Z22.322 - Carrier or suspected carrier of Methicillin resistant Staphylococcus aureus (9) Non-STEMI (non-ST elevated myocardial infarction) Current visit: No Status: Acute Category: Medical Code(s): I21.4 - Non-ST elevation (NSTEMI) myocardial infarction (10) Very severe chronic obstructive pulmonary disease Current visit: No Status: Acute Category: Medical Code(s): J44.9 - Chronic obstructive pulmonary disease, unspecified (11) Tinea pedis Current visit: Yes Status: Acute Category: Medical Code(s): B35.3 - Tinea pedis - Assessment and plan all Dx Assessment and Plan for all problems:: 1. Continue rehabilitation with PT and OT 2. Add clotrimazole cream 3. Patient will finish a 2-week course of vancomycin tomorrow
--- NOTE | 2018-09-30 07:24 | Progress Note ---
Internal Medicine - PN: Subj *Date: 09/30/18 *Time: 07:21 Interval history: Patient has no new complaints. She does continue to endorse nausea with most meals and believes that there is a possibility her nausea is from a lot of her medications. Her daughter continues to express concern about possible ulcers although upper GI has ruled out any large ulcers. The question arises of whether patient could have H. pylori. I did explain this can only be ruled out with the EGD and biopsy although I would really prefer to avoid sedation in this patient unnecessarily. We did discuss the option of treating empirically with antibiotics that would likely cause nausea and the patient has declined that option. She continues to cough. She is participating with physical therapy but did not reach her goal yesterday in ambulatory distance. Exam Vital signs and Labs for Last 24 Hours: Temp Pulse Resp BP Pulse Ox 98.1 F 68 21 99/54 L 74 L 09/29/18 20:00 09/30/18 06:08 09/29/18 21:00 09/29/18 20:00 09/30/18 06:08 I & O for Last 24 hours: Intake & Output 09/27/18 09/28/18 09/29/18 09/30/18 11:59 11:59 11:59 11:59 Intake Total 1460 / 1460 1570 / 1570 970 / 970 850 / 850 Output Total 300 / 300 1750 / 1750 1200 / 1200 1000 / 1000 Balance 1160 / 1160 -180 / -180 -230 / -230 -150 / -150 Weight 179 lb 5 oz 180 lb 180 lb 0.013 oz 180 lb 2 oz Narrative: Patient appears comfortable. Lungs have diffuse expiratory wheezes. With cough patient sounds rhonchorous although there is very little sputum production. Assessment and Plan (1) Acute and chronic respiratory failure Current visit: Yes Status: Acute Category: Medical Code(s): J96.20 - Acute and chronic respiratory failure, unspecified whether with hypoxia or hypercapnia (2) Gastritis Current visit: Yes Status: Acute Category: Medical Code(s): K29.70 - Gastritis, unspecified, without bleeding (3) Anxiety Current visit: Yes Status: Acute Category: Medical Code(s): F41.9 - Anxiety disorder, unspecified (4) COPD exacerbation Current visit: No Status: Acute Category: Medical Code(s): J44.1 - Chronic obstructive pulmonary disease with (acute) exacerbation (5) Cardiomyopathy Current visit: No Status: Acute Category: Medical Code(s): I42.9 - Cardiomyopathy, unspecified (6) Dependence on supplemental oxygen Current visit: Yes Status: Acute Category: Medical Code(s): Z99.81 - Dependence on supplemental oxygen (7) Insomnia Current visit: Yes Status: Acute Category: Medical Code(s): G47.00 - Insomnia, unspecified (8) MRSA (methicillin resistant staph aureus) culture positive Current visit: Yes Status: Acute Category: Medical Code(s): Z22.322 - Carrier or suspected carrier of Methicillin resistant Staphylococcus aureus (9) Non-STEMI (non-ST elevated myocardial infarction) Current visit: No Status: Acute Category: Medical Code(s): I21.4 - Non-ST elevation (NSTEMI) myocardial infarction (10) Very severe chronic obstructive pulmonary disease Current visit: Yes Status: Acute Category: Medical Code(s): J44.9 - Chronic obstructive pulmonary disease, unspecified (11) Tinea pedis Current visit: Yes Status: Acute Category: Medical Code(s): B35.3 - Tinea pedis - Assessment and plan all Dx Assessment and Plan for all problems:: 1. Patient will receive a dose of vancomycin today completing a two-week course of vancomycin for MRSA bronchitis. 2. Continue participation with physical therapy
[2018-09-30 08:55] LABS: Anion Gap 9.4 mEq/L (5-15); Potassium 5.4 mmoL/L (3.5-5.1)
[2018-09-30 08:56] LABS: Calcium 8.8 mg/dL (8.5-10.1)
--- NOTE | 2018-09-30 10:46 | Pharmacy Consult Notes ---
- Pharmacy Consult Date: 09/30/18 Time: 10:45 Referring provider: DR. REID Reason for Consult:: VANCOMYCIN TROUGH LEVEL Allergies and ADEs:: Allergies Allergy/AdvReac Type Severity Reaction Status Date / Time hydrocodone [HYDROCODONE] Allergy Severe dizziness, Verified 03/30/18 01:49 n/v metoclopramide [From REGLAN] Allergy Severe Swelling Verified 03/30/18 01:49 of Lip/Tongue/Throat codeine [CODEINE] Allergy Intermediate dizziness. Verified 03/30/18 01:49 n/v Sulfa (Sulfonamide AdvReac Mild n/v Verified 03/30/18 01:49 Antibiotics) [SULFA (SULFONAMIDE ANTIBIOTICS)] Home Medications:: Home Medications Medication Instructions Recorded Confirmed Type Albuterol Sulfate [Albuterol 2.5 mg IH Q6HP PRN 05/24/17 09/25/18 History 0.083% 2.5mg/3mL neb] Albuterol Sulfate [Proair Hfa 2 puffs IH Q4HP PRN 05/24/17 09/25/18 History 90mcg/puff Inh] Aspirin [Aspirin 81mg EC Tab] 81 mg PO DAILY 05/24/17 09/25/18 History Azelastine/Fluticasone [Dymista 1 spray NS BID 05/24/17 09/25/18 History Nasal [place]] Bacillus Coagulans [Probiotic] 1 each PO DAILY 05/24/17 09/25/18 History Budesonide/Formoterol Fumarate 2 puffs IH BID 05/24/17 09/25/18 History [Symbicort 160-4.5 Mcg Inhaler] Bumetanide 2 mg PO DAILY 05/24/17 09/25/18 History Buspirone HCl [Buspar 10mg tablet] 10 mg PO BID 05/24/17 09/25/18 History Cholecalciferol (Vitamin D3) 400 unit PO DAILY 05/24/17 09/25/18 History [Vitamin D3] Ferrous Sulfate [Iron] 325 mg PO DAILY 05/24/17 09/25/18 History Ipratropium [place] [Atrovent 0.5 mg IH BIDP PRN 05/24/17 09/25/18 History 0.5mg/2.5mL neb] Loratadine [Claritin] 10 mg PO DAILY 05/24/17 09/25/18 History Mirabegron [Myrbetriq] 50 mg PO DAILY 05/24/17 09/25/18 History Montelukast Sodium [Montelukast 10 mg PO HS 05/24/17 09/25/18 History 10mg Tab] Multivitamin [Multivitamins] 1 each PO DAILY 05/24/17 09/25/18 History Pantoprazole Sodium [Protonix 40mg 40 mg PO DAILY 05/24/17 09/25/18 History tablet] Pilocarpine HCl [Salagen] 7.5 mg PO TIDP PRN 05/24/17 09/25/18 History Polyethylene Glycol 3350 [Miralax 17 gm PO DAILYP PRN 05/24/17 09/25/18 History 17gm Packet] Sertraline HCl [Zoloft] 100 mg PO DAILY 05/24/17 09/25/18 History Guaifenesin/Dextromethorphan 10 ml PO Q4HP PRN #200 liquid 03/30/18 09/25/18 Rx [Guaifenesin-Dm Solution] Potassium Chloride [Micro-K 10mEq 20 meq PO DAILY 05/21/18 09/25/18 History cap] Roflumilast [Daliresp] 500 mcg PO DAILY 05/21/18 09/25/18 History Acetaminophen [Acetaminophen 325mg 325 mg PO Q6HP PRN 05/22/18 09/25/18 History tab] Ondansetron [Ondansetron Odt 8mg 8 mg PO DAILY 05/22/18 09/25/18 History Tab] Trazodone HCl 100 mg PO HS 05/22/18 09/25/18 History Pregabalin [Lyrica 150mg Cap] 150 mg PO HS #30 cap 05/26/18 09/25/18 Rx Acetylcysteine [Mucomyst 20% 4mL 1 ml INHALATION TIDRT 06/10/18 09/25/18 History vial] Sucralfate [Sucralfate 1gm 1 gm PO BID 09/14/18 09/25/18 History Tab] Nadolol [Corgard] 20 mg PO BID 09/15/18 09/25/18 History Tiotropium [place] [Spiriva 1 puff IH DAILY 09/15/18 09/25/18 History 18mcg/puff inhaler] Hydrocortisone 2.5 mg PO HS 09/16/18 09/25/18 History Hydrocortisone 5 mg PO DAILY 09/16/18 09/25/18 History Clopidogrel Bisulfate [Plavix 75mg 75 mg PO DAILY 09/25/18 09/25/18 History Tab] Height: 1.52 m Weight: 81.703 kg Laboratory Results:: Laboratory Results - last 24 hr 09/30/18 08:30: Vancomycin Trough 18.9 09/30/18 08:30: Sodium 137, Potassium 5.4 H, Chloride 105, Carbon Dioxide 28, Anion Gap 9.4, BUN 14, Creatinine 1.27 H, Estimated Creat Clear 53, Estimated GFR 42 L, Est GFR ( Amer) 50 L, Glucose 104, Calcium 8.8 Medical History: Reports:: Anxiety, Congestive Heart Failure, Chronic Obstructive Pulmonary Disease (COPD), Gastroesophageal Reflux Disease(GERD), Hypertension Denies:: Cancer, Diabetes Mellitus Type 1, Diabetes Mellitus Type 2, MRSA Assessment and Plan (1) Acute and chronic respiratory failure Current visit: Yes Status: Acute Category: Medical Code(s): J96.20 - Acute and chronic respiratory failure, unspecified whether with hypoxia or hypercapnia (2) Gastritis Current visit: Yes Status: Acute Category: Medical Code(s): K29.70 - Johana ritis, unspecified, without bleeding (3) Anxiety Current visit: Yes Status: Acute Category: Medical Code(s): F41.9 - Anxiety disorder, unspecified (4) COPD exacerbation Current visit: No Status: Acute Category: Medical Code(s): J44.1 - Chronic obstructive pulmonary disease with (acute) exacerbation (5) Cardiomyopathy Current visit: No Status: Acute Category: Medical Code(s): I42.9 - Cardiomyopathy, unspecified (6) Dependence on supplemental oxygen Current visit: Yes Status: Acute Category: Medical Code(s): Z99.81 - Dependence on supplemental oxygen (7) Insomnia Current visit: Yes Status: Acute Category: Medical Code(s): G47.00 - Insomnia, unspecified (8) MRSA (methicillin resistant staph aureus) culture positive Current visit: Yes Status: Acute Category: Medical Code(s): Z22.322 - Carrier or suspected carrier of Methicillin resistant Staphylococcus aureus (9) Non-STEMI (non-ST elevated myocardial infarction) Current visit: No Status: Acute Category: Medical Code(s): I21.4 - Non-ST elevation (NSTEMI) myocardial infarction (10) Very severe chronic obstructive pulmonary disease Current visit: Yes Status: Acute Category: Medical Code(s): J44.9 - Chronic obstructive pulmonary disease, unspecified (11) Tinea pedis Current visit: Yes Status: Acute Category: Medical Code(s): B35.3 - Tinea pedis - Assessment and plan all Dx Assessment and Plan for all problems:: BASED ON VANCOMYCIN TROUGH LEVEL AND PATIENT FACTORS, RECOMMEND CONTINUING VANCOMYCIN 1250 MG IV THIS MORNING. THIS IS PATIENT'S LAST DOSE OF VANCOMYCIN PER DR REID.
--- NOTE | 2018-09-30 17:51 | Consult Report ---
*Admission Date: 09/25/18 *Chief complaint: I'm still pretty weak and short of breath. *History of present illness: Ms. 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 I saw her soon after she was admitted this time in late August for acute respiratory failure requiring mechanical ventilation. The cause of her decompensation was not entirely clear but I wondered whether or not she had some allergic component to it since the pollen count had been so high and she was wheezing so much. I also wondered whether an adjustment in the amount of narcotic infusion from her pain pump had contributed to this. In any case, she responded to supportive care and was extubated soon after I saw her. She has been recovering in hospital since then but is still quite weak. She has a persistent cough which is productive of small amounts of yellow sputum and it has been difficult to raise sputum. She is breathless with activities of daily living currently and is quite concerned that she may be sent home where she is alone most of the day because her daughter works. She is not having symptoms of esophageal reflux currently but she does complain of profound nausea and loss of appetite. Her sense of taste is very poor and she believes the medications are contributing to nausea. [facility] History Medical History: Reports:: Anxiety, Congestive Heart Failure, Chronic Obstructive Pulmonary Disease (COPD), Gastroesophageal Reflux Disease(GERD), Hypertension Denies:: Cancer, Diabetes Mellitus Type 1, Diabetes Mellitus Type 2, MRSA *Have you ever received a pneumonia vaccine?: Yes *Have you received a flu vaccine this season?: Yes Other Medical History: Reports: Anemia Laterality Cases: Left: Arthroscopy Hip Other Surgeries: Yes: Hysterectomy-Total, Other (gallbladder removed) Amputation: No Fractures: Yes - *Social History Educational Level: Completed College Smoking Status: Former smoker Tobacco Type: cigarettes # Packs/Day (cigarettes): 1 #Yrs smoked (if former smoker): 40 Alcohol Intake: never *Occupational Status:: retired Housing: house Household Members: children *Travel in the last 8 weeks: None - Psychiatric History Expresses thoughts of harming self/others: None Suicide Plan Description: No Plan Pschychiatric History:: Reports:: Anxiety Family Hx:: Non-contributory Review of Systems - Review of Systems Apart from the systems mentioned in the HPI, the rest of a 10-point ROS is negative. Meds Home Medications Medication Instructions Recorded Confirmed Type Albuterol Sulfate [Albuterol 2.5 mg IH Q6HP PRN 05/24/17 09/25/18 History 0.083% 2.5mg/3mL neb] Albuterol Sulfate [Proair Hfa 2 puffs IH Q4HP PRN 05/24/17 09/25/18 History 90mcg/puff Inh] Aspirin [Aspirin 81mg EC Tab] 81 mg PO DAILY 05/24/17 09/25/18 History Azelastine/Fluticasone [Dymista 1 spray NS BID 05/24/17 09/25/18 History Nasal [place]] Bacillus Coagulans [Probiotic] 1 each PO DAILY 05/24/17 09/25/18 History Budesonide/Formoterol Fumarate 2 puffs IH BID 05/24/17 09/25/18 History [Symbicort 160-4.5 Mcg Inhaler] Bumetanide 2 mg PO DAILY 05/24/17 09/25/18 History Buspirone HCl [Buspar 10mg tablet] 10 mg PO BID 05/24/17 09/25/18 History Cholecalciferol (Vitamin D3) 400 unit PO DAILY 05/24/17 09/25/18 History [Vitamin D3] Ferrous Sulfate [Iron] 325 mg PO DAILY 05/24/17 09/25/18 History Ipratropium [place] [Atrovent 0.5 mg IH BIDP PRN 05/24/17 09/25/18 History 0.5mg/2.5mL neb] Loratadine [Claritin] 10 mg PO DAILY 05/24/17 09/25/18 History Mirabegron [Myrbetriq] 50 mg PO DAILY 05/24/17 09/25/18 History Montelukast Sodium [Montelukast 10 mg PO HS 05/24/17 09/25/18 History 10mg Tab] Multivitamin [Multivitamins] 1 each PO DAILY 05/24/17 09/25/18 History Pantoprazole Sodium [Protonix 40mg 40 mg PO DAILY 05/24/17 09/25/18 History tablet] Pilocarpine HCl [Salagen] 7.5 mg PO TIDP PRN 05/24/17 09/25/18 History Polyethylene Glycol 3350 [Miralax 17 gm PO DAILYP PRN 05/24/17 09/25/18 History 17gm Packet] Sertraline HCl [Zoloft] 100 mg PO DAILY 05/24/17 09/25/18 History Guaifenesin/Dextromethorphan 10 ml PO Q4HP PRN #200 liquid 03/30/18 09/25/18 Rx [Guaifenesin-Dm Solution] Potassium Chloride [Micro-K 10mEq 20 meq PO DAILY 05/21/18 09/25/18 History cap] Roflumilast [Daliresp] 500 mcg PO DAILY 05/21/18 09/25/18 History Acetaminophen [Acetaminophen 325mg 325 mg PO Q6HP PRN 05/22/18 09/25/18 History tab] Ondansetron [Ondansetron Odt 8mg 8 mg PO DAILY 05/22/18 09/25/18 History Tab] Trazodone HCl 100 mg PO HS 05/22/18 09/25/18 History Pregabalin [Lyrica 150mg Cap] 150 mg PO HS #30 cap 05/26/18 09/25/18 Rx Acetylcysteine [Mucomyst 20% 4mL 1 ml INHALATION TIDRT 06/10/18 09/25/18 History vial] Sucralfate [Sucralfate 1gm 1 gm PO BID 09/14/18 09/25/18 History Tab] Nadolol [Corgard] 20 mg PO BID 09/15/18 09/25/18 History Tiotropium [place] [Spiriva 1 puff IH DAILY 09/15/18 09/25/18 History 18mcg/puff inhaler] Hydrocortisone 2.5 mg PO HS 09/16/18 09/25/18 History Hydrocortisone 5 mg PO DAILY 09/16/18 09/25/18 History Clopidogrel Bisulfate [Plavix 75mg 75 mg PO DAILY 09/25/18 09/25/18 History Tab] Allergies Allergy/AdvReac Type Severity Reaction Status Date / Time hydrocodone [HYDROCODONE] Allergy Severe dizziness, Verified 03/30/18 01:49 n/v metoclopramide [From REGLAN] Allergy Severe Swelling Verified 03/30/18 01:49 of Lip/Tongue/Throat codeine [CODEINE] Allergy Intermediate dizziness. Verified 03/30/18 01:49 n/v Sulfa (Sulfonamide AdvReac Mild n/v Verified 03/30/18 01:49 Antibiotics) [SULFA (SULFONAMIDE ANTIBIOTICS)] Exam Vital signs and Labs for Last 24 Hours: Temp Pulse Resp BP Pulse Ox 97.7 F 70 16 83/41 L 86 L 09/30/18 08:00 09/30/18 14:03 09/30/18 09:00 09/30/18 08:00 09/30/18 10:08 Laboratory Results - last 24 hr 09/30/18 08:30: Vancomycin Trough 18.9 09/30/18 08:30: Sodium 137, Potassium 5.4 H, Chloride 105, Carbon Dioxide 28, Anion Gap 9.4, BUN 14, Creatinine 1.27 H, Estimated Creat Clear 53, Estimated GFR 42 L, Est GFR ( Amer) 50 L, Glucose 104, Calcium 8.8 MsDanyelle Ruiz is a chronically ill, overweight woman who is sitting up in bed, appearing pale and breathless wearing oxygen. Chest: Symmetrical expansion; hyperresonance by percussion bilaterally distant breath sounds with a prolonged expiratory phase of ventilation and expiratory wheezes. She is quite tight. Heart: Regular rhythm; no audible murmur. Extremities: No edema I & O for Last 24 hours: Intake & Output 09/27/18 09/28/18 09/29/18 09/30/18 23:59 23:59 23:59 23:59 Intake Total 1700 / 1700 1080 / 1080 1100 / 1100 240 / 240 Output Total 850 / 850 1900 / 1900 850 / 850 350 / 350 Balance 850 / 850 -820 / -820 250 / 250 -110 / -110 Weight 81.335 kg 81.647 kg 81.647 kg 81.703 kg Internal Medicine - CN: Reslt - Labs CBC & Chem 7: 09/30/18 08:30 Labs: BMP 09/30/18 08:30 Sodium 137 Potassium 5.4 H Chloride 105 Carbon Dioxide 28 BUN 14 Creatinine 1.27 H Glucose 104 Calcium 8.8 - Impressions I reviewed her chest x-ray and do not see evidence for an infiltrate or effusion. Assessment and Plan (1) Acute and chronic respiratory failure Current visit: Yes Status: Acute Category: Medical Code(s): J96.20 - Acute and chronic respiratory failure, unspecified whether with hypoxia or hypercapnia (2) Gastritis Current visit: Yes Status: Acute Category: Medical Code(s): K29.70 - Gastritis, unspecified, without bleeding (3) Anxiety Current visit: Yes Status: Acute Category: Medical Code(s): F41.9 - Anxiety disorder, unspecified (4) COPD exacerbation Current visit: No Status: Acute Category: Medical Code(s): J44.1 - Chronic obstructive pulmonary disease with (acute) exacerbation (5) Cardiomyopathy Current visit: No Status: Acute Category: Medical Code(s): I42.9 - Cardiomyopathy, unspecified (6) Dependence on supplemental oxygen Current visit: Yes Status: Acute Category: Medical Code(s): Z99.81 - Dependence on supplemental oxygen (7) Insomnia Current visit: Yes Status: Acute Category: Medical Code(s): G47.00 - Insomnia, unspecified (8) MRSA (methicillin resistant staph aureus) culture positive Current visit: Yes Status: Acute Category: Medical Code(s): Z22.322 - Carrier or suspected carrier of Methicillin resistant Staphylococcus aureus (9) Non-STEMI (non-ST elevated myocardial infarction) Current visit: No Status: Acute Category: Medical Code(s): I21.4 - Non-ST elevation (NSTEMI) myocardial infarction (10) Very severe chronic obstructive pulmonary disease Current visit: Yes Status: Acute Category: Medical Code(s): J44.9 - Chr onic obstructive pulmonary disease, unspecified (11) Tinea pedis Current visit: Yes Status: Acute Category: Medical Code(s): B35.3 - Tinea pedis - Assessment and plan all Dx Assessment and Plan for all problems:: Ms. Ruiz is suffering acute on chronic respiratory failure which I believe is related to an acute exacerbation of COPD. She is quite tight and wheezing diffusely on lung exam. She has not been on corticosteroids, it seems and I am not sure when they were stopped. I suggest starting Solu-Medrol at 40 mg IV every 8 hours until she is stable and then switch to oral corticosteroids tapering over a week or so. I am not sure what precipitated this exacerbation; I do not think it was related to a bacterial infection. It might be helpful to get a viral PCR swab; she has had exacerbations due to influenza and other viruses in the past. I will follow-up with her on the outside and she will get her immunoglobulin infusions as scheduled. Thank you for the opportunity to participate in Ms. Ruiz's care.
--- NOTE | 2018-10-01 07:26 | Progress Note ---
Internal Medicine - PN: Subj *Date: 10/01/18 *Time: 07:24 Interval history: Patient reports persistent nausea especially with hot or warm foods. Both the taste of warm foods and the smell of warm foods apparently triggers significant nausea. Her appetite is poor. She did not participate with therapy yesterday morning but did participate with therapy in the afternoon. We did have a discussion about empiric treatment of H. pylori due to her persistent nausea. Dr. Martinez saw the patient in consultation yesterday and restarted some steroids. Exam Vital signs and Labs for Last 24 Hours: Temp Pulse Resp BP Pulse Ox 98.5 F 75 20 86/49 L 95 09/30/18 20:00 10/01/18 06:18 09/30/18 20:00 09/30/18 20:00 10/01/18 06:18 Laboratory Results - last 24 hr 09/30/18 08:30: Vancomycin Trough 18.9 09/30/18 08:30: Sodium 137, Potassium 5.4 H, Chloride 105, Carbon Dioxide 28, Anion Gap 9.4, BUN 14, Creatinine 1.27 H, Estimated Creat Clear 53, Estimated GFR 42 L, Est GFR ( Amer) 50 L, Glucose 104, Calcium 8.8 I & O for Last 24 hours: Intake & Output 09/28/18 09/29/18 09/30/18 10/01/18 11:59 11:59 11:59 11:59 Intake Total 1570 / 1570 970 / 970 1090 / 1090 240 / 240 Output Total 1750 / 1750 1200 / 1200 1000 / 1000 Balance -180 / -180 -230 / -230 90 / 90 240 / 240 Weight 180 lb 180 lb 0.013 oz 180 lb 2 oz Narrative: She appears comfortable. Lung examination reveals diffuse expiratory wheezes with crackles at the left base which are chronic. Heart has a regular rate and rhythm. Abdomen is soft and nontender. Assessment and Plan (1) Acute and chronic respiratory failure Current visit: Yes Status: Acute Category: Medical Code(s): J96.20 - Acute and chronic respiratory failure, unspecified whether with hypoxia or hypercapnia (2) Gastritis Current visit: Yes Status: Acute Category: Medical Code(s): K29.70 - Gastritis, unspecified, without bleeding (3) Anxiety Current visit: Yes Status: Acute Category: Medical Code(s): F41.9 - Anxiety disorder, unspecified (4) COPD exacerbation Current visit: No Status: Acute Category: Medical Code(s): J44.1 - Chronic obstructive pulmonary disease with (acute) exacerbation (5) Cardiomyopathy Current visit: No Status: Acute Category: Medical Code(s): I42.9 - Cardiomyopathy, unspecified (6) Dependence on supplemental oxygen Current visit: Yes Status: Acute Category: Medical Code(s): Z99.81 - Dependence on supplemental oxygen (7) Insomnia Current visit: Yes Status: Acute Category: Medical Code(s): G47.00 - Insomnia, unspecified (8) MRSA (methicillin resistant staph aureus) culture positive Current visit: Yes Status: Acute Category: Medical Code(s): Z22.322 - Carrier or suspected carrier of Methicillin resistant Staphylococcus aureus (9) Non-STEMI (non-ST elevated myocardial infarction) Current visit: No Status: Acute Category: Medical Code(s): I21.4 - Non-ST elevation (NSTEMI) myocardial infarction (10) Very severe chronic obstructive pulmonary disease Current visit: Yes Status: Acute Category: Medical Code(s): J44.9 - Chronic obstructive pulmonary disease, unspecified (11) Tinea pedis Current visit: Yes Status: Acute Category: Medical Code(s): B35.3 - Tinea pedis - Assessment and plan all Dx Assessment and Plan for all problems:: 1. Encourage patient to participate with PT 2. Transition to oral steroids today 3. Continue current care and we are awaiting word from insurance regarding of stay 4. Begin empiric treatment for H. pylori
[2018-10-01 23:32] LABS: Microscopic, Urine URINE MICROSCOPIC (MICROSCOPIC)
[2018-10-01 23:34] LABS: Appearance,Urine CLEAR (Clear); Bilirubin,Urine Negative (Negative); Blood, Urine Negative (Negative); Color,Urine YELLOW (Yellow); Glucose,Urine (UA) Negative (Negative); Ketones,Urine Negative (Negative); Leukocyte Esterase,Urine Negative (Negative); PH,Urine 5.5 (5.0-8.5); Protein,Urine Negative (Negative); Specific Gravity, Urine <= 1.005 (1.005-1.030); Urobilinogen,Urine 0.2 EU/dl (0.2)
[2018-10-01 23:41] LABS: Bacteria,Urine 1+ /lpf
--- NOTE | 2018-10-02 07:13 | Progress Note ---
Internal Medicine - PN: Subj *Date: 10/02/18 *Time: 07:11 Interval history: Patient has been sleeping well. She denies shortness of breath. Yesterday adjustments were made in how her medications were given which she believed to help with the nausea. Appetite remains poor. She is working with physical therapy and occupational therapy twice per day. Exam Vital signs and Labs for Last 24 Hours: Temp Pulse Resp BP Pulse Ox 98.8 F 74 20 115/55 L 94 L 10/01/18 20:00 10/02/18 05:54 10/01/18 20:00 10/01/18 20:00 10/02/18 06:00 Laboratory Results - last 24 hr 10/01/18 23:20: Urine Color Yellow, Urine Appearance Clear, Urine pH 5.5, Ur Specific [place] <= 1.005, Urine Protein Negative, Urine Glucose (UA) Negative, Urine Ketones Negative, Urine Blood Negative, Urine Nitrate Negative, Urine Bilirubin Negative, Urine Urobilinogen 0.2, Ur Leukocyte Esterase Negative, Urine WBC 3-5, Ur Squamous Epith Cells 5-10, Urine Bacteria 1+ I & O for Last 24 hours: Intake & Output 09/29/18 09/30/18 10/01/18 10/02/18 11:59 11:59 11:59 11:59 Intake Total 970 / 970 1090 / 1090 720 / 720 480 / 480 Output Total 1200 / 1200 1000 / 1000 450 / 450 550 / 550 Balance -230 / -230 90 / 90 270 / 270 -70 / -70 Weight 180 lb 0.013 oz 180 lb 2 oz 176 lb 6 oz Narrative: Patient is sleeping when I entered the room but awakens easily. She is showing no sign of respiratory distress or increased work of breathing. Lungs have fair aeration with some rhonchi anteriorly that clear with cough and dry crackles at the left lung base. Heart has a regular rate and rhythm. Assessment and Plan (1) Acute and chronic respiratory failure Current visit: Yes Status: Acute Category: Medical Code(s): J96.20 - Acute and chronic respiratory failure, unspecified whether with hypoxia or hypercapnia (2) Gastritis Current visit: Yes Status: Acute Category: Medical Code(s): K29.70 - Gastritis, unspecified, without bleeding (3) Anxiety Current visit: Yes Status: Acute Category: Medical Code(s): F41.9 - Anxiety disorder, unspecified (4) COPD exacerbation Current visit: No Status: Acute Category: Medical Code(s): J44.1 - Chronic obstructive pulmonary disease with (acute) exacerbation (5) Cardiomyopathy Current visit: No Status: Acute Category: Medical Code(s): I42.9 - Cardiomyopathy, unspecified (6) Dependence on supplemental oxygen Current visit: Yes Status: Acute Category: Medical Code(s): Z99.81 - Dependence on supplemental oxygen (7) Insomnia Current visit: Yes Status: Acute Category: Medical Code(s): G47.00 - Insomnia, unspecified (8) MRSA (methicillin resistant staph aureus) culture positive Current visit: Yes Status: Acute Category: Medical Code(s): Z22.322 - Carrier or suspected carrier of Methicillin resistant Staphylococcus aureus (9) Non-STEMI (non-ST elevated myocardial infarction) Current visit: No Status: Acute Category: Medical Code(s): I21.4 - Non-ST elevation (NSTEMI) myocardial infarction (10) Very severe chronic obstructive pulmonary disease Current visit: Yes Status: Acute Category: Medical Code(s): J44.9 - Chronic obstructive pulmonary disease, unspecified (11) Tinea pedis Current visit: Yes Status: Acute Category: Medical Code(s): B35.3 - Tinea pedis - Assessment and plan all Dx Assessment and Plan for all problems:: Continue PT and OT
--- NOTE | 2018-10-03 07:25 | Progress Note ---
Internal Medicine - PN: Subj *Date: 10/03/18 *Time: 07:22 Interval history: Patient has no new complaints this morning. Her nausea persists. Staggering administration of medications did not seem to help this yesterday. Her iron has been stopped. Patient admits her legs feel very weak when she is ambulating and standing. She asks if her blood pressure medication is too strong. Currently she is only taking metoprolol. She tolerates cold foods as well as supplements but the thought of food and the smell of food triggers nausea Exam Vital signs and Labs for Last 24 Hours: Temp Pulse Resp BP Pulse Ox 98.3 F 74 18 112/53 L 96 10/02/18 20:00 10/03/18 05:59 10/02/18 21:20 10/02/18 20:00 10/03/18 06:50 I & O for Last 24 hours: Intake & Output 09/30/18 10/01/18 10/02/18 10/03/18 11:59 11:59 11:59 11:59 Intake Total 1090 / 1090 720 / 720 720 / 720 960 / 960 Output Total 1000 / 1000 450 / 450 550 / 550 800 / 800 Balance 90 / 90 270 / 270 170 / 170 160 / 160 Weight 180 lb 2 oz 176 lb 6 oz 177 lb 3 oz Narrative: Patient appears comfortable in bed with no signs of respiratory distress. Nasal cannula is in place. Lungs sound very good today and are clear with fair aeration. Heart has a regular rate and rhythm. Assessment and Plan (1) Acute and chronic respiratory failure Current visit: Yes Status: Acute Category: Medical Code(s): J96.20 - Acute and chronic respiratory failure, unspecified whether with hypoxia or hypercapnia (2) Gastritis Current visit: Yes Status: Acute Category: Medical Code(s): K29.70 - Gastritis, unspecified, without bleeding (3) Anxiety Current visit: Yes Status: Acute Category: Medical Code(s): F41.9 - Anxiety disorder, unspecified (4) COPD exacerbation Current visit: No Status: Acute Category: Medical Code(s): J44.1 - Chronic obstructive pulmonary disease with (acute) exacerbation (5) Cardiomyopathy Current visit: No Status: Acute Category: Medical Code(s): I42.9 - Cardiomyopathy, unspecified (6) Dependence on supplemental oxygen Current visit: Yes Status: Acute Category: Medical Code(s): Z99.81 - Dependence on supplemental oxygen (7) Insomnia Current visit: Yes Status: Acute Category: Medical Code(s): G47.00 - Insomnia, unspecified (8) MRSA (methicillin resistant staph aureus) culture positive Current visit: Yes Status: Acute Category: Medical Code(s): Z22.322 - Carrier or suspected carrier of Methicillin resistant Staphylococcus aureus (9) Non-STEMI (non-ST elevated myocardial infarction) Current visit: No Status: Acute Category: Medical Code(s): I21.4 - Non-ST elevation (NSTEMI) myocardial infarction (10) Very severe chronic obstructive pulmonary disease Current visit: Yes Status: Acute Category: Medical Code(s): J44.9 - Chronic obstructive pulmonary disease, unspecified (11) Tinea pedis Current visit: Yes Status: Acute Category: Medical Code(s): B35.3 - Tinea pedis - Assessment and plan all Dx Assessment and Plan for all problems:: 1. Hold Daliresp today to see if that has any impact on her nausea as I suspect her nausea is somewhat related to multiple medications. Iron has already been decreased 2. Patient is slowly improving with participation with physical therapy and Occupational Therapy. Continue alf habilitation
--- NOTE | 2018-10-04 07:21 | Progress Note ---
Internal Medicine - PN: Subj *Date: 10/04/18 *Time: 07:19 Interval history: Patient has no complaints this morning. She does not believe she slept as well last night. She continues to have nausea. Yesterday Daliresp was held due to 4% incidence of nausea. She did not notice any change in nausea without this medication. Exam Vital signs and Labs for Last 24 Hours: Temp Pulse Resp BP Pulse Ox 98.4 F 92 H 20 130/63 97 10/03/18 20:00 10/04/18 06:45 10/03/18 20:00 10/03/18 20:00 10/04/18 06:45 I & O for Last 24 hours: Intake & Output 10/01/18 10/02/18 10/03/18 10/04/18 11:59 11:59 11:59 11:59 Intake Total 720 / 720 720 / 720 1440 / 1440 480 / 480 Output Total 450 / 450 550 / 550 800 / 800 Balance 270 / 270 170 / 170 640 / 640 480 / 480 Weight 176 lb 6 oz 177 lb 3 oz 178 lb 3 oz Narrative: Patient is laying in bed and appears comfortable and shows no signs of respiratory distress. Lungs have fair aeration with faint wheezing on expiration this morning. Assessment and Plan (1) Acute and chronic respiratory failure Current visit: Yes Status: Acute Category: Medical Code(s): J96.20 - Acute and chronic respiratory failure, unspecified whether with hypoxia or hypercapnia (2) Gastritis Current visit: Yes Status: Acute Category: Medical Code(s): K29.70 - Johana ritis, unspecified, without bleeding (3) Anxiety Current visit: Yes Status: Acute Category: Medical Code(s): F41.9 - Anxiety disorder, unspecified (4) COPD exacerbation Current visit: No Status: Acute Category: Medical Code(s): J44.1 - Chronic obstructive pulmonary disease with (acute) exacerbation (5) Cardiomyopathy Current visit: No Status: Acute Category: Medical Code(s): I42.9 - Cardiomyopathy, unspecified (6) Dependence on supplemental oxygen Current visit: Yes Status: Acute Category: Medical Code(s): Z99.81 - Dependence on supplemental oxygen (7) Insomnia Current visit: Yes Status: Acute Category: Medical Code(s): G47.00 - Insomnia, unspecified (8) MRSA (methicillin resistant staph aureus) culture positive Current visit: Yes Status: Acute Category: Medical Code(s): Z22.322 - Carrier or suspected carrier of Methicillin resistant Staphylococcus aureus (9) Non-STEMI (non-ST elevated myocardial infarction) Current visit: No Status: Acute Category: Medical Code(s): I21.4 - Non-ST elevation (NSTEMI) myocardial infarction (10) Very severe chronic obstructive pulmonary disease Current visit: Yes Status: Acute Category: Medical Code(s): J44.9 - Chronic obstructive pulmonary disease, unspecified (11) Tinea pedis Current visit: Yes Status: Acute Category: Medical Code(s): B35.3 - Tinea pedis - Assessment and plan all Dx Assessment and Plan for all problems:: 1. Continue PT and OT throughout the weekend 2. Discontinue trazodone due to a 10 to 20% chance of nausea with this medication. Patient will be started on mirtazapine not only for sleep but also for appetite stimulation. Patient's Lyrica will be restarted. 3. Patient has sensation in her mouth as if she is getting thrush although there was no evidence of thrush on today's exam. Nystatin will be started prophylactically
--- NOTE | 2018-10-05 07:11 | Progress Note ---
Internal Medicine - PN: Subj *Date: 10/05/18 *Time: 07:09 Interval history: Patient reports her nausea was better yesterday. We restarted her Lyrica but that caused tremors so she asks that that be discontinued. She did not sleep well as we replaced her trazodone with mirtazapine to try to stimulate her appetite last night. In regards to her activity level yesterday she reports that feet she feels like she did quite well ambulating back and forth to the bathroom several times as well as ambulating with in her room from the window to the door several times. She believes she may have felt slightly better because her blood pressure was running a little bit higher and review of vital signs show systolics in the 120s as opposed to the low 100s to 110 Exam Vital signs and Labs for Last 24 Hours: Temp Pulse Resp BP Pulse Ox 98.5 F 80 19 125/64 99 10/04/18 19:54 10/05/18 06:05 10/04/18 19:54 10/04/18 19:54 10/05/18 06:05 I & O for Last 24 hours: Intake & Output 10/02/18 10/03/18 10/04/18 10/05/18 11:59 11:59 11:59 11:59 Intake Total 720 / 720 1440 / 1440 520 / 520 622 / 622 Output Total 550 / 550 800 / 800 340 / 340 Balance 170 / 170 640 / 640 520 / 520 282 / 282 Weight 176 lb 6 oz 177 lb 3 oz 178 lb 3 oz 176 lb 8 oz Narrative: She appears comfortable. Lung exam reveals fair aeration and this morning I do not hear any expiratory wheezes. Heart has a regular rate and rhythm Assessment and Plan (1) Acute and chronic respiratory failure Current visit: Yes Status: Acute Category: Medical Code(s): J96.20 - Acute and chronic respiratory failure, unspecified whether with hypoxia or hypercapnia (2) Gastritis Current visit: Yes Status: Acute Category: Medical Code(s): K29.70 - Gastritis, unspecified, without bleeding (3) Anxiety Current visit: Yes Status: Acute Category: Medical Code(s): F41.9 - Anxiety disorder, unspecified (4) COPD exacerbation Current visit: No Status: Acute Category: Medical Code(s): J44.1 - Chronic obstructive pulmonary disease with (acute) exacerbation (5) Cardiomyopathy Current visit: No Status: Acute Category: Medical Code(s): I42.9 - Cardiomyopathy, unspecified (6) Dependence on supplemental oxygen Current visit: Yes Status: Acute Category: Medical Code(s): Z99.81 - Dependence on supplemental oxygen (7) Insomnia Current visit: Yes Status: Acute Category: Medical Code(s): G47.00 - Insomnia, unspecified (8) MRSA (methicillin resistant staph aureus) culture positive Current visit: Yes Status: Acute Category: Medical Code(s): Z22.322 - Carrier or suspected carrier of Methicillin resistant Staphylococcus aureus (9) Non-STEMI (non-ST elevated myocardial infarction) Current visit: No Status: Acute Category: Medical Code(s): I21.4 - Non-ST elevation (NSTEMI) myocardial infarction (10) Very severe chronic obstructive pulmonary disease Current visit: Yes Status: Acute Category: Medical Code(s): J44.9 - Chronic obstructive pulmonary disease, unspecified (11) Tinea pedis Current visit: Yes Status: Acute Category: Medical Code(s): B35.3 - Tinea pedis - Assessment and plan all Dx Assessment and Plan for all problems:: Continue current plan of care with PT and OT. Patient is set a goal to ambulate slightly farther today than she did yesterday by making it across the hallway here in the hospital. I am going to discontinue the mirtazapine in place of low-dose of amitriptyline. Lyrica will be discontinued as well
--- NOTE | 2018-10-06 07:33 | Progress Note ---
Internal Medicine - PN: Subj *Date: 10/06/18 *Time: 07:32 Interval history: Patient ambulated farther yesterday than she has so far during her rehab stay. She admits that left her quite winded. She did not sleep well last night as we have been making adjustments in medications to try to reduce nausea as much as possible. She reports nausea is improving but is not sure to due to the medication changes. Exam Vital signs and Labs for Last 24 Hours: Temp Pulse Resp BP Pulse Ox 98.5 F 85 18 117/53 L 99 10/05/18 19:45 10/06/18 06:35 10/05/18 19:45 10/05/18 19:45 10/06/18 06:35 I & O for Last 24 hours: Intake & Output 10/03/18 10/04/18 10/05/18 10/06/18 11:59 11:59 11:59 11:59 Intake Total 1440 / 1440 520 / 520 982 / 982 240 / 240 Output Total 800 / 800 340 / 340 440 / 440 Balance 640 / 640 520 / 520 642 / 642 -200 / -200 Weight 177 lb 3 oz 178 lb 3 oz 176 lb 8 oz 176 lb 2 oz Narrative: Patient appears comfortable. She sitting up in the bed. No respiratory distress. Lungs have fair aeration and this morning there are no abnormal breath sounds. Heart has a regular rate and rhythm Assessment and Plan (1) Acute and chronic respiratory failure Current visit: Yes Status: Acute Category: Medical Code(s): J96.20 - Acute and chronic respiratory failure, unspecified whether with hypoxia or hypercapnia (2) Gastritis Current visit: Yes Status: Acute Category: Medical Code(s): K29.70 - Gastritis, unspecified, without bleeding (3) Anxiety Current visit: Yes Status: Acute Category: Medical Code(s): F41.9 - Anxiety disorder, unspecified (4) COPD exacerbation Current visit: No Status: Acute Category: Medical Code(s): J44.1 - Chronic obstructive pulmonary disease with (acute) exacerbation (5) Cardiomyopathy Current visit: No Status: Acute Category: Medical Code(s): I42.9 - Cardiomyopathy, unspecified (6) Dependence on supplemental oxygen Current visit: Yes Status: Acute Category: Medical Code(s): Z99.81 - Dependence on supplemental oxygen (7) Insomnia Current visit: Yes Status: Acute Category: Medical Code(s): G47.00 - Insomnia, unspecified (8) MRSA (methicillin resistant staph aureus) culture positive Current visit: Yes Status: Acute Category: Medical Code(s): Z22.322 - Carrier or suspected carrier of Methicillin resistant Staphylococcus aureus (9) Non-STEMI (non-ST elevated myocardial infarction) Current visit: No Status: Acute Category: Medical Code(s): I21.4 - Non-ST elevation (NSTEMI) myocardial infarction (10) Very severe chronic obstructive pulmonary disease Current visit: Yes Status: Acute Category: Medical Code(s): J44.9 - Chronic obstructive pulmonary disease, unspecified (11) Tinea pedis Current visit: Yes Status: Acute Category: Medical Code(s): B35.3 - Tinea pedis - Assessment and plan all Dx Assessment and Plan for all problems:: I will restart the patient's trazodone and we will wait and see if nausea recurs. No change in plan of care at this time. Continue PT and OT
--- NOTE | 2018-10-07 06:48 | Discharge Summary ---
General - General Admission date:: 09/25/18 Discharge date: 10/07/18 HPI HPI: 72-year-old female admitted to the hospital with acute on chronic respiratory failure on September 14 that required intubation and mechanical ventilation. Patient also suffered non-ST elevation AR from hypoxemia. After an approximate 10-day hospital stay patient was transferred to a swing bed for further rehabilitation with physical therapy, occupational therapy. While hospitalized patient had been transitioned to a trilogy ventilation device as BiPAP had been ineffective for her respiratory failure. Hospital Course Hospital Course: Patient was admitted to swing bed. She participated with physical therapy and Occupational Therapy daily showing gradual improvement during her rehab stay. After reaching believed maximal improvement patient was discharged home on October 07. While rehabilitating in swing bed patient had significant nausea without complaints of abdominal pain. Adjustments were made to medications that it was believe several medications contributed to her nausea, specifically her iron sulfate. This was discontinued and will remain discontinued at discharge. Patient also takes trazodone for insomnia. We attempted to hold this medication as well but patient's insomnia worsened and she requested taking the medication. Patient underwent upper GI due to the persistent nausea with no defect seen. Patient developed thrush while hospitalized. In the transition to swing bed patient was maintained on vancomycin for MRSA bronchitis. After completing a 2- week course of MRSA bronchitis vancomycin was discontinued. Thrush developed during the end of her course of vancomycin and initially was treated with nystatin. Nystatin oral suspension however was ineffective and patient was transitioned to oral fluconazole. Patient will complete a 10-day course of oral fluconazole 100 mg at discharge. Patient was discharged home on October 07. She will need to continue PT, OT through home health. She will also need mcc through home health for monitoring of patient's COPD. [facility] medical will be contacted as well to aid the patient with setting up her trilogy device at home. Objective Vital signs: Temp Pulse Resp BP Pulse Ox 97.6 F 84 20 129/65 98 10/06/18 20:00 10/07/18 05:57 10/06/18 20:00 10/06/18 20:00 10/07/18 05:57 Results Labs on day of discharge: Labs from last 24 hours 10/06/18 15:04 Stl Aeromonas (PCR) Not detected Stl C. cayetanensis PCR Not detected Stool Rotavirus (PCR) Not detected Stl Adenov F 40/41 PCR Not detected Stool Astrovirus (PCR) Not detected Stool Campylobacter PCR Not detected Stl C.difficile Tox PCR Not detected Stool Cryptosporidium PCR Not detected Stl E.coli Shiga Tox PCR Not detected Stool E coli O157 PCR Not detected Stl Enterotoxigenic E PCR Not detected Stool EPEC (PCR) Not detected Stool EAEC (PCR) Not detected Stl E. histolytica PCR Not detected Stool Giardia Lamblia PCR Not detected Stool Salmonella PCR Not detected Stool Sapovirus (PCR) Not detected Stl P. shigelloides PCR Not detected Stl Shigella/EIEC PCR Not detected St Y.enterocolitica PCR Not detected Stool Vibrio (PCR) Not detected Stl Vibrio cholerae PCR Not detected Stl Norovirus GI/GII PCR Not detected DS: Diagnosis - Discharge Diagnosis (1) Acute and chronic respiratory failure Status: Acute (2) Gastritis Status: Acute (3) Anxiety Status: Acute (4) COPD exacerbation Status: Acute (5) Cardiomyopathy Status: Acute (6) Dependence on supplemental oxygen Status: Acute (7) Insomnia Status: Acute (8) MRSA (methicillin resistant staph aureus) culture positive Status: Acute (9) Non-STEMI (non-ST elevated myocardial infarction) Status: Acute (10) Very severe chronic obstructive pulmonary disease Status: Acute (11) Tinea pedis Status: Acute Discharge Plan - Patient Discharge Instructions ACTIVITY: Continue current activity DIET: continue same diet Patient Instructions: DI for Heart Attack, Heart-Healthy Diet, DI for Chronic Obstructive Pulmonary Disease, DI for Methicillin-Resistant Staph Infection (MRSA), DI for Gastritis, DI for Respiratory Failure - Follow up Plan Follow up with: Asad Ford MD [Primary Care Provider] - 10/10/18 Disposition: Home, Self-Retirement Medications: Home Medications Medication Instructions Recorded Confirmed Type Albuterol Sulfate [Albuterol 2.5 mg IH Q6HP PRN 05/24/17 09/25/18 History 0.083% 2.5mg/3mL neb] Albuterol Sulfate [Proair Hfa 2 puffs IH Q4HP PRN 05/24/17 09/25/18 History 90mcg/puff Inh] Aspirin [Aspirin 81mg EC Tab] 81 mg PO DAILY 05/24/17 09/25/18 History Azelastine/Fluticasone [Dymista 1 spray NS BID 05/24/17 09/25/18 History Nasal [place]] Bacillus Coagulans [Probiotic] 1 each PO DAILY 05/24/17 09/25/18 History Budesonide/Formoterol Fumarate 2 puffs IH BID 05/24/17 09/25/18 History [Symbicort 160-4.5 Mcg Inhaler] Bumetanide 2 mg PO DAILY 05/24/17 09/25/18 History Buspirone HCl [Buspar 10mg tablet] 10 mg PO BID 05/24/17 09/25/18 History Cholecalciferol (Vitamin D3) 400 unit PO DAILY 05/24/17 09/25/18 History [Vitamin D3] Ferrous Sulfate [Iron] 325 mg PO DAILY 05/24/17 09/25/18 History Ipratropium Pheba [Atrovent 0.5 mg IH BIDP PRN 05/24/17 09/25/18 History 0.5mg/2.5mL neb] Loratadine [Claritin] 10 mg PO DAILY 05/24/17 09/25/18 History Mirabegron [Myrbetriq] 50 mg PO DAILY 05/24/17 09/25/18 History Montelukast Sodium [Montelukast 10 mg PO HS 05/24/17 09/25/18 History 10mg Tab] Multivitamin [Multivitamins] 1 each PO DAILY 05/24/17 09/25/18 History Pantoprazole Sodium [Protonix 40mg 40 mg PO DAILY 05/24/17 09/25/18 History tablet] Pilocarpine HCl [Salagen] 7.5 mg PO TIDP PRN 05/24/17 09/25/18 History Polyethylene Glycol 3350 [Miralax 17 gm PO DAILYP PRN 05/24/17 09/25/18 History 17gm Packet] Sertraline HCl [Zoloft] 100 mg PO DAILY 05/24/17 09/25/18 History Guaifenesin/Dextromethorphan 10 ml PO Q4HP PRN #200 liquid 03/30/18 09/25/18 Rx [Guaifenesin-Dm Solution] Potassium Chloride [Micro-K 10mEq 20 meq PO DAILY 05/21/18 09/25/18 History cap] Roflumilast [Daliresp] 500 mcg PO DAILY 05/21/18 09/25/18 History Acetaminophen [Acetaminophen 325mg 325 mg PO Q6HP PRN 05/22/18 09/25/18 History tab] Ondansetron [Ondansetron Odt 8mg 8 mg PO DAILY 05/22/18 09/25/18 History Tab] Trazodone HCl 100 mg PO HS 05/22/18 09/25/18 History Pregabalin [Lyrica 150mg Cap] 150 mg PO HS #30 cap 05/26/18 09/25/18 Rx Acetylcysteine [Mucomyst 20% 4mL 1 ml INHALATION TIDRT 06/10/18 09/25/18 History vial] Sucralfate [Sucralfate 1gm 1 gm PO BID 09/14/18 09/25/18 History Tab] Nadolol [Corgard] 20 mg PO BID 09/15/18 09/25/18 History Tiotropium Pheba [Spiriva 1 puff IH DAILY 09/15/18 09/25/18 History 18mcg/puff inhaler] Hydrocortisone 2.5 mg PO HS 09/16/18 09/25/18 History Hydrocortisone 5 mg PO DAILY 09/16/18 09/25/18 History Clopidogrel Bisulfate [Plavix 75mg 75 mg PO DAILY 09/25/18 09/25/18 History Tab] Amoxicillin [Amoxicillin 500mg 500 mg PO BID #28 cap 10/01/18 Rx Cap] Bismuth Subsalicylate [Bismuth] 262 mg PO QID #56 tab.chew 10/01/18 Rx Clarithromycin [Biaxin 500mg 500 mg PO BID #28 tab 10/01/18 Rx Tablet] Metoprolol Tartrate [Lopressor 12.5 mg PO BID #60 tab 10/01/18 Rx 25mg tablet] Pantoprazole Sodium [Protonix 40mg 40 mg PO BID #60 tablet.dr 10/01/18 Rx tablet] hydrOXYzine pamoate [Vistaril 25mg 50 mg PO Q6HP PRN #60 cap 10/01/18 Rx capsule] Atorvastatin Calcium [Atorvastatin 10 mg PO HS #30 tab 10/07/18 Rx 10mg Tab] Fluconazole [Diflucan 100mg tablet] 100 mg PO DAILY #10 tab 10/07/18 Rx Prescriptions/Medication Reconciliation: New Amoxicillin [Amoxicillin 500mg Cap] 500 mg PO BID #28 cap Clarithromycin [Biaxin 500mg Tablet] 500 mg PO BID #28 tab Bismuth Subsalicylate [Bismuth] 262 mg PO QID #56 tab.chew Metoprolol Tartrate [Lopressor 25mg tablet] 12.5 mg PO BID #60 tab Pantoprazole Sodium [Protonix 40mg tablet] 40 mg PO BID #60 tablet. hydrOXYzine pamoate [Vistaril 25mg capsule] 50 mg PO Q6HP PRN #60 cap PRN Reason: Anxiety Fluconazole [Diflucan 100mg tablet] 100 mg PO DAILY #10 tab Atorvastatin Calcium [Atorvastatin 10mg Tab] 10 mg PO HS #30 tab Continued Montelukast Sodium [Montelukast 10mg Tab] 10 mg PO HS Albuterol Sulfate [Proair Hfa 90mcg/puff Inh] 2 puffs IH Q4HP PRN PRN Reason: Shortness Of Breath Or Wheezing Sertraline HCl [Zoloft] 100 mg PO DAILY Polyethylene Glycol 3350 [Miralax 17gm Packet] 17 gm PO DAILYP PRN PRN Reason: Constipation Multivitamin [Multivitamins] 1 each PO DAILY Mirabegron [Myrbetriq] 50 mg PO DAILY Loratadine [Claritin] 10 mg PO DAILY Ipratropium Pheba [Atrovent 0.5mg/2.5mL neb] 0.5 mg IH BIDP PRN PRN Reason: Shortness Of Breath Or Wheezing Buspirone HCl [Buspar 10mg tablet] 10 mg PO BID Bumetanide 2 mg PO DAILY Budesonide/Formoterol Fumarate [Symbicort 160-4.5 Mcg Inhaler] 2 puffs IH BID Bacillus Coagulans [Probiotic] 1 each PO DAILY Azelastine/Fluticasone [Dymista Nasal [place]] 1 spray NS BID Albuterol Sulfate [Albuterol 0.083% 2.5mg/3mL neb] 2.5 mg IH Q6HP PRN PRN Reason: Shortness Of Breath Or Wheezing Potassium Chloride [Micro-K 10mEq cap] 20 meq PO DAILY Trazodone HCl 100 mg PO HS Ondansetron [Ondansetron Odt 8mg Tab] 8 mg PO DAILY Tiotropium Pheba [Spiriva 18mcg/puff inhaler] 1 puff IH DAILY Hydrocortisone 2.5 mg PO HS Aspirin [Aspirin 81mg EC Tab] 81 mg PO DAILY Pilocarpine HCl [Salagen] 7.5 mg PO TIDP PRN PRN Reason: DRY MOUTH Cholecalciferol (Vitamin D3) [Vitamin D3] 400 unit PO DAILY Guaifenesin/Dextromethorphan [Guaifenesin-Dm Solution] 10 ml PO Q4HP PRN #200 liquid PRN Reason: Cough Roflumilast [Daliresp] 500 mcg PO DAILY Acetylcysteine [Mucomyst 20% 4mL vial] 1 ml INHALATION TIDRT Hydrocortisone 5 mg PO DAILY Discontinued Pantoprazole Sodium [Protonix 40mg tablet] 40 mg PO DAILY Ferrous Sulfate [Iron] 325 mg PO DAILY Acetaminophen [Acetaminophen 325mg tab] 325 mg PO Q6HP PRN PRN Reason: As Needed For Fever Or Pain Sucralfate [Sucralfate 1gm Tab] 1 gm PO BID Nadolol [Corgard] 20 mg PO BID Pregabalin [Lyrica 150mg Cap] 150 mg PO HS #30 cap Clopidogrel Bisulfate [Plavix 75mg Tab] 75 mg PO DAILY
== END 2018-10-07 17:15 | disposition home or self-care (01) | DRG 189 ==
LOC: 2ND 09:33
PROVIDERS: ADMIT Family Medicine; ATTEND Family Medicine
CPT/HCPCS: 74241; 80048; 80202; 81001; 86580; 87507; 94640; 94761; 97110; 97116; 97161; 97165; 97530; 97535; J1642; J2405; J3370

== ENCOUNTER → 2018-10-21 10:23 | Outpatient (POV) | payer MEDICARE, SELFPAY ==
[2018-10-21 11:39] LABS: Basophils % 0.1 % (0.1-2.0); Eosinophils # 0.2 K/mm3 (0.0-0.4); Eosinophils % 1.8 % (0.1-12.0); Hemoglobin 10.6 g/dL (12.2-16.2); Lymphocytes # 1.9 K/mm3 (0.7-4.5); Lymphocytes % 21.2 % (10-50); Mean Corpuscular HGB Conc 34.2 g/dL (31.8-35.4); Mean Corpuscular Hemoglobin 28.8 pg (27.0-31.2); Mean Corpuscular Volume 84.3 fl (81-99); Monocytes # 0.4 K/mm3 (0.1-1.0); Monocytes % 3.9 % (1.7-9.3); Neutrophils # 6.5 K/mm3 (1.8-7.8); Platelet Count 206 K/mm3 (142-424); Red Blood Count 3.67 M/mm3 (4.20-5.40); Red Cell Distribution Width 13.7 % (11.5-17.5)
[2018-10-21 15:25] LABS: Alanine Aminotransferase 25 U/L (12-78); Albumin Level 3.6 gm/dL (3.4-5.0); Albumin/Globulin Ratio 1.1 (1.1-1.8); Alkaline Phosphatase 77 U/L (46-116); Anion Gap 14.5 mEq/L (5-15); Aspartate Amino Transferase 17 U/L (15-37); Bilirubin,Total 0.5 mg/dL (0.2-1.0); Blood Urea Nitrogen 24 mg/dL (7-18); Calcium 9.2 mg/dL (8.5-10.1); Carbon Dioxide 32 mmol/L (21.0-32.0); Chloride 98 mmol/L (98-107); Creatinine,Serum 1.66 mg/dL (0.55-1.02); Estimated Glomerular Filt Rate 31 ml/min (>60); GFR (African American) 37 ML/MIN (>60); Globulin 3.4 gm/dl (1.3-3.2); Glucose 92 mg/dL (74-106); Lipase 60 u/L (73-393); Potassium 4.5 mmoL/L (3.5-5.1); Sodium 140 mmol/L (136-145)
[2018-10-24 20:46] LABS: Procalcitonin 0.17 ng/mL (0.00-0.08)
== END ==
PROVIDERS: Visit Provider Internal Medicine
DX: R10.9 Unspecified abdominal pain (principal); R11.0 Nausea; E27.1 Primary adrenocortical insufficiency; J47.9 Bronchiectasis, uncomplicated
CPT/HCPCS: 36415; 80053; 82533; 83690; 84145; 85025; 87070; 87077; 87186; 87205

== ENCOUNTER 2018-10-28 10:28 | Outpatient (CLI) | payer MEDICARE, SELFPAY ==
[2018-10-28 11:26] VITALS: BP 105/54; PULSE 89; RESP 18; TEMP 36.4; O2SAT 94
[2018-10-28 11:56] VITALS: BP 106/55; PULSE 84; RESP 18; O2SAT 95
[2018-10-28 12:26] VITALS: BP 110/54; PULSE 82; RESP 18; O2SAT 95
[2018-10-28 13:00] VITALS: BP 112/60; PULSE 86; RESP 18; O2SAT 94
== END 2018-10-28 13:00 | disposition home or self-care (01) ==
LOC: INF 10:28
PROVIDERS: Visit Provider Internal Medicine
DX: D80.3 Selective deficiency of immunoglobulin G [IgG] subclasses (principal)
CPT/HCPCS: 96365; 96366; J1459

== ENCOUNTER → 2018-11-05 14:00 | Outpatient (CLI) | payer MEDICARE, SELFPAY ==
[2018-11-05 15:19] LABS: Anion Gap 13.5 mEq/L (5-15); Blood Urea Nitrogen 32 mg/dL (7-18); Calcium 8.7 mg/dL (8.5-10.1); Carbon Dioxide 30 mmol/L (21.0-32.0); Chloride 102 mmol/L (98-107); Creatinine,Serum 1.28 mg/dL (0.55-1.02); Estimated Glomerular Filt Rate 41 ml/min (>60); GFR (African American) 50 ML/MIN (>60); Glucose 94 mg/dL (74-106); Potassium 3.5 mmoL/L (3.5-5.1); Sodium 142 mmol/L (136-145)
== END ==
PROVIDERS: Visit Provider Family Medicine
DX: N18.3 Chronic kidney disease, stage 3 (moderate) (principal)
CPT/HCPCS: 80048

== ENCOUNTER → 2018-11-06 09:33 | Outpatient (CLI) | payer MEDICARE, SELFPAY ==
--- NOTE | 2018-11-06 09:38 | XR_ITS ---
XR shoulder RT min 2V HISTORY: ITS.REASON: right shoulder pain ORDERING PHYSICIAN: Anson Lowry MD PATIENT AGE: 72 years Comparison: 09/04/2018 FINDINGS: There is an overall no significant change in the ununited distal clavicular fracture with superior displacement of the proximal fracture fragment. There are moderate osteoarthritic changes of the glenohumeral joint. No acute fracture or dislocation is evident. Right subclavian Mediport catheter remains in place. 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
== END ==
PROVIDERS: PCP Family Medicine; Visit Provider Orthopaedic Surgery
DX: M25.511 Pain in right shoulder (principal)
CPT/HCPCS: 73030

== ENCOUNTER 2018-12-11 12:51 | Outpatient (CLI) | payer MEDICARE, SELFPAY ==
[2018-12-11 13:37] VITALS: BMI 29.1
[2018-12-11 14:05] VITALS: BP 131/61; PULSE 75; RESP 20; O2SAT 98
[2018-12-11 14:40] VITALS: BP 134/70; PULSE 77; RESP 20; O2SAT 96
[2018-12-12 15:04] LABS: Rubella Antibodies, IgG 9.92 index (Immune >0.99)
[2018-12-12 15:09] LABS: IgG, Subclass 1 501 mg/dL (248-810); IgG, Subclass 2 172 mg/dL (130-555); IgG, Subclass 3 29 mg/dL (15-102)
[2018-12-12 19:45] LABS: IgG, Subclass 4 20 mg/dL (2-96); Mumps Abs, IgG 96.2 AU/mL (Immune >10.9)
[2018-12-15 14:14] LABS: Body Fluid Culture, Sterile Not Indicated (.); Organism ID Not indicated. (.); Specimen Source Urine (.); Streptococcus pneumoniae Ag Negative (Negative)
== END 2018-12-11 16:00 | disposition home or self-care (01) ==
LOC: INF 12:52
PROVIDERS: Internal Medicine Critical Care Medicine; Visit Provider Internal Medicine
DX: D80.3 Selective deficiency of immunoglobulin G [IgG] subclasses (principal)
CPT/HCPCS: 82787; 86735; 86762; 86765; 87899; 96365; 96366; J1568

== ENCOUNTER → 2018-12-18 15:14 | Outpatient (CLI) | payer MEDICARE, SELFPAY ==
--- NOTE | 2018-12-18 15:19 | CT_ITS ---
CT chest wo con HISTORY: ITS.REASON: CHRONIC RESIRATORY FAILURE, BRONCHIECTASIS ORDERING PHYSICIAN: Jus Martinez MD PATIENT AGE: 73 years COMPARISON: 11/23/2016 Technique: Axial images were obtained. Sagittal, and coronal reformatted images are also generated and reviewed. All CT scans at the facility use one or more dose reduction, viz: automated exposure control, ma/kV adjustment per patient size (including targeted exams where dose is matched to indication, i.e. head), or iterative reconstruction technique. FINDINGS: Mediport catheter is present from the right subclavian approach. The tip of the catheter is in region of the superior vena cava. There are coronary artery calcifications. No mediastinal or hilar mass or adenopathy is evident. There are centrilobular emphysematous changes with scattered areas of scarring there is chronic volume loss in the right middle lobe similar to the previous exam. Scattered areas of bronchial thickening are noted. There is some scarring in the right lung base laterally. Scarring also noted in the lingula and left lower lobe. Chronic degenerative changes are present in the thoracic spine with the CHESTER. There is an epidural catheter present. IMPRESSION: 1. Overall no significant change from the previous study. 2. Centrilobular emphysema with scattered areas of scarring with chronic volume loss in the right middle lobe and lingula overall not significantly changed. 3. Coronary artery calcifications
== END ==
PROVIDERS: PCP Family Medicine; Visit Provider Internal Medicine
DX: J96.10 Chronic respiratory failure, unspecified whether with hypoxia or hypercapnia (principal); J47.9 Bronchiectasis, uncomplicated; Z87.891 Personal history of nicotine dependence
CPT/HCPCS: 71250

== ENCOUNTER 2019-01-16 10:03 | Outpatient (CLI) | payer MEDICARE, SELFPAY ==
[2019-01-16 10:25] VITALS: BP 125/79; PULSE 85; RESP 20; TEMP 36.9; O2SAT 95
[2019-01-16 11:25] VITALS: BP 112/74; PULSE 68; RESP 20; TEMP 36.7; O2SAT 95
[2019-01-16 12:00] VITALS: BP 112/74; PULSE 68; RESP 20; TEMP 36.9; O2SAT 95
[2019-01-16 12:23] VITALS: BP 135/74; PULSE 68; RESP 20; TEMP 36.8; O2SAT 95
== END 2019-01-16 12:25 | disposition home or self-care (01) ==
LOC: INF 10:03
PROVIDERS: Visit Provider Internal Medicine Critical Care Medicine
DX: D80.3 Selective deficiency of immunoglobulin G [IgG] subclasses (principal)
CPT/HCPCS: 96365; 96366; J1568

== ENCOUNTER 2019-02-19 10:21 | Outpatient (CLI) | payer MEDICARE, SELFPAY ==
[2019-02-19 11:15] VITALS: BP 130/70; PULSE 96; RESP 20
[2019-02-19 11:30] VITALS: BP 137/69; PULSE 94; RESP 20
[2019-02-19 12:00] VITALS: BP 136/71; PULSE 98; RESP 20
[2019-02-19 12:15] VITALS: BP 122/49; PULSE 98; RESP 20
[2019-02-19 12:30] VITALS: BP 136/71; PULSE 94; RESP 20
[2019-02-19 13:05] VITALS: BP 143/65; PULSE 95; RESP 20
== END 2019-02-19 13:05 | disposition home or self-care (01) ==
LOC: INF 10:21
PROVIDERS: Visit Provider Internal Medicine Critical Care Medicine
DX: D80.3 Selective deficiency of immunoglobulin G [IgG] subclasses (principal)
CPT/HCPCS: 96365; 96366; J1568; J1642

== ENCOUNTER 2019-03-27 10:15 | Outpatient (CLI) | payer MEDICARE, SELFPAY ==
[2019-03-27 10:50] VITALS: BP 99/50; PULSE 75; RESP 18; O2SAT 98
[2019-03-27 11:20] VITALS: BP 101/43; PULSE 78; RESP 18
[2019-03-27 11:50] VITALS: BP 104/46; PULSE 75; RESP 20
[2019-03-27 12:20] VITALS: BP 109/51; PULSE 77; RESP 20
== END 2019-03-27 12:45 | disposition home or self-care (01) ==
LOC: INF 10:19
PROVIDERS: Visit Provider Internal Medicine Critical Care Medicine
DX: D80.3 Selective deficiency of immunoglobulin G [IgG] subclasses (principal)
CPT/HCPCS: 96365; J1568

== ENCOUNTER → 2019-04-25 11:40 | Outpatient (CLI) | payer MEDICARE, SELFPAY | PROVIDERS: Visit Provider Family Medicine | DX: R05 Cough (principal) | CPT/HCPCS: 87070; 87077; 87186; 87205 ==

== ENCOUNTER 2019-04-30 08:39 | Outpatient (CLI) | payer MEDICARE, SELFPAY | END 2019-04-30 08:50 | disposition home or self-care (01) | LOC: INF 08:39 | PROVIDERS: Visit Provider Family Medicine | DX: J20.9 Acute bronchitis, unspecified (principal); Z45.2 Encounter for adjustment and management of vascular access device | CPT/HCPCS: 96523 ==

== ENCOUNTER → 2019-05-18 13:44 | Outpatient (CLI) | payer MEDICARE, SELFPAY | PROVIDERS: Visit Provider Family Medicine | DX: J44.9 Chronic obstructive pulmonary disease, unspecified (principal) | CPT/HCPCS: 87070; 87186; 87205 ==

== ENCOUNTER 2019-05-25 17:33 | Observation (INO) ==
--- NOTE | 2019-05-25 17:54 | Emergency Department Note ---
ED Disposition Clinical Impression: MRSA pneumonia, Acute exacerbation of chronic obstructive airways disease Disposition: Admitted As Inpatient Condition on Discharge: Serious Referrals: Provider,Referral, [Primary Care Provider] - Time of Disposition: 19:42 - Critical Care Critical Care Time: No Attestation: On 05/25/19, the high probability of a clinically significant, sudden or life threatening deterioration of the following system(s) required my full and direct attention, intervention and personal management. The time I documented below is in addition to time spent performing reported procedures but includes the following listed in this critical care notation. Medical Decision Making - Medical Records Medical records reviewed: Yes: I reviewed the patient's medical records. - Julius Inquiry Pt receiving controlled substance: No Vital Signs: 05/25/19 17:34 05/25/19 17:50 05/25/19 18:00 Temperature 98.1 F Temperature Source Oral Pulse Rate 94 H 94 H Pulse Rate [Radial] 96 H Respiratory Rate 20 Blood Pressure [Right Arm] 159/84 H Blood Pressure Mean [Right Arm] 109 Blood Pressure Source [Right Arm] Automatic Cuff Blood Pressure Position [Right Arm] Sitting 02 Sat by Pulse Oximetry 97 Oxygen Delivery Method Room Air 05/25/19 18:10 Temperature Temperature Source Pulse Rate 94 H Pulse Rate [Radial] Respiratory Rate Blood Pressure [Right Arm] Blood Pressure Mean [Right Arm] Blood Pressure Source [Right Arm] Blood Pressure Position [Right Arm] 02 Sat by Pulse Oximetry Oxygen Delivery Method - Lab Data Lab results reviewed: Yes: I reviewed the patient's lab results. Lab Results 05/25/19 17:45: WBC 3.7 L, RBC 3.61 L, Hgb 10.3 L, Hct 32.6 L, MCV 90.3, MCH 28.6, MCHC 31.7 L, RDW 12.8, Plt Count 161, MPV 6.9 L, Neut % (Auto) 79.6, Lymph % (Auto) 16.3, [place] % (Auto) 3.5, Eos % (Auto) 0.3, Baso % (Auto) 0.4, Neut # (Auto) 2.9, Lymph # (Auto) 0.6 L, [place] # (Auto) 0.1, Eos # (Auto) 0.0, Baso # (Auto) 0.0 05/25/19 17:45: Sodium 140, Potassium 5.0, Chloride 103, Carbon Dioxide 31, Anion Gap 11.0, BUN 13, Creatinine 1.12 H, Estimated Creat Clear 66, Estimated GFR 48 L, Est GFR ( Amer) 58 L, Glucose 110 H, Calcium 8.3 L, Troponin I < 0.02 05/25/19 17:45: Lactate 1.3 05/25/19 18:18: Specimen Source Right radial, O2 % 30, ABG pH 7.64 H*, ABG pCO2 21.8 L, ABG pO2 163.7 H, ABG HCO3 22.7, ABG Total CO2 23.4, ABG O2 Saturation 99, ABG Base Excess 1.8, Carlos Test Acceptable 05/25/19 18:45: Urine Color Yellow, Urine Appearance Clear, Urine pH 7.5, Ur Specific [place] 1.010, Urine Protein Negative, Urine Glucose (UA) Negative, Urine Ketones Negative, Urine Blood Negative, Urine Nitrate Negative, Urine Bilirubin Negative, Urine Urobilinogen 0.2, Ur Leukocyte Esterase Negative Result diagrams: 05/25/19 17:45 05/25/19 17:45 Orders (Tests/Meds): ED MEDICATIONS Generic Name Dose Route Start Last Admin Trade Name Freq PRN Reason Stop Dose Admin Sodium Chloride 10 ml 05/25/19 18:48 Sodium Chloride 0.9% 10ml Vial IV 06/24/19 18:47 NEEDED PRN to Dilute Lorazepam inj Discontinued Medications Generic Name Dose Route Start Last Admin Trade Name Freq PRN Reason Stop Dose Admin Albuterol/Ipratropium 3 ml 05/25/19 17:47 05/25/19 17:50 Duoneb 3ml [facility] 05/25/19 17:48 3 ml ONCE ONE Administration Albuterol/Ipratropium 3 ml 05/25/19 17:49 05/25/19 18:00 Duoneb 3ml [facility] 05/25/19 17:50 3 ml ONCE ONE Administration Albuterol/Ipratropium 3 ml 05/25/19 17:50 05/25/19 18:10 Duoneb 3ml [facility] 05/25/19 17:51 3 ml ONCE ONE Administration Cefepime HCl 1 gm/ Sodium 50 mls @ 100 mls/hr 05/25/19 19:33 Chloride IV 05/25/19 19:34 ONCE ONE Protocol Lorazepam 0.5 mg 05/25/19 18:48 05/25/19 18:54 Ativan 2mg/Ml Vial IV 05/25/19 18:49 0.5 mg ONCE ONE Administration Methylprednisolone Sodium Succinate 125 mg 05/25/19 17:47 05/25/19 17:53 Solu-Medrol 125mg/2ml Vial IV 05/25/19 17:48 125 mg ONCE ONE Administration Ondansetron HCl 4 mg 05/25/19 18:48 05/25/19 18:54 Zofran 4mg/2ml Vial IV 05/25/19 18:49 4 mg ONCE ONE Administration ORDERS Category Date Time Status B-Type Natriuretic Peptide Stat Lab 05/25/19 17:45 Received Troponin I Q3H Lab 05/25/19 21:00 Ordered Troponin I Q3H Lab 05/26/19 00:00 Ordered UA [Urinalysis and Microscopic] Stat Lab 05/25/19 18:45 Received Blood Culture Stat Micro 05/25/19 17:45 Received - Radiology Data #1 Image(s): Chest Image Reviewed: Yes I reviewed the patient's radiology results, Yes I reviewed the patient's radiology image Preliminary Findings: Normal/NAD Patient: Marietta Ruiz MR#: [id number] : 1945 Acct:[id number] Age/Sex: 73 / F ADM Date: 0 Loc: ER Attending Dr: Ordering Physician: Noel Benton MD Date of Service: 05/25/19 Procedure(s): XR chest portable Accession Number(s): [id number] cc: Carlos Starks MD; Provider,Referral MD~ PROCEDURE: XR CHEST PORTABLE CLINICAL HISTORY: SOA Cough, shortness of COMPARISON: CXR CHEST(2 VIEWS-NOT PORTABLE) from 03/21/2017 CXR2V XR chest 2V from 03/30/2018 CXR1VP XR chest portable from 05/21/[address] chest wo con from 12/18/2018 FINDINGS: The cardiomediastinal silhouette and pulmonary vascularity are within normal limits. Right subclavian MediPort catheter is present with the tip in region the SVC. There are chronic changes in the lung bases. No lobar consolidation or collapse. Old right distal clavicular fracture noted. No acute bony abnormalities. IMPRESSION: Chronic changes, no acute finding Dictated by: Carlos Starks MD 05/25/2019 18:57 Electronically signed by Carlos Starks MD in [place] 05/25/2019 18:57 - Physician Consults Physician Consulted: Dr. Arshad farm operations manager for Dr. Ford. Time: 19:30 Reason -: Pt condition Comment/Response: Discussed patient's hyperventilation, respiratory distress, blood gases, vital signs and lab work. Also discussed patient's current MRSA pneumonia and history of COPD and home O2. Due to hyperventilation and patient's leukopenia Dr. Arshad was concern for possible impending respiratory decompensation and sepsis due to pneumonia. Therefore he orders admission at this time. Resp/SOB HPI - General Chief Complaint: Shortness of Breath/Dyspnea Stated Complaint: SOA Time Seen by Provider: 05/25/19 17:35 Mode of Arrival: EMS Limitations: No Limitations Description of Symptoms (Recalled from ER Triage Doc. by RN): MRSA in lungs, currently taking doxycycline and states it is not working and her breathing is getting worse. - History of Present Illness 73-year old female with a history of COPD on home O2 currently being treated for MRSA pneumonia presents to the emergency department with dyspnea and respiratory distress. Complaint: shortness of breath, cough Onset (ago): day(s) (1) Severity: severe Consistency/Duration: constant Relieving factors: nothing Exacerbating factors: nothing Known history of: COPD Associated symptoms: cough, wheezing Treatment prior to arrival: oxygen - Related Data Home oxygen amount: 3 liters Home Medications Medication Instructions Recorded Confirmed Albuterol Sulfate [Albuterol 2.5 mg IH Q6HP PRN 05/24/17 03/27/19 0.083% 2.5mg/3mL neb] Albuterol Sulfate [Proair Hfa 2 puffs IH Q4HP PRN 05/24/17 03/27/19 90mcg/puff Inh] Aspirin [Aspirin 81mg EC Tab] 81 mg PO DAILY 05/24/17 03/27/19 Azelastine/Fluticasone [Dymista 1 spray NS BID 05/24/17 03/27/19 Nasal [place]] Bacillus Coagulans [Probiotic] 1 each PO DAILY 05/24/17 03/27/19 Budesonide/Formoterol Fumarate 2 puffs IH BID 05/24/17 03/27/19 [Symbicort 160-4.5 Mcg Inhaler] Buspirone HCl [Buspar 10mg 10 mg PO BID 05/24/17 03/27/19 tablet] Cholecalciferol (Vitamin D3) 400 unit PO DAILY 05/24/17 03/27/19 [Vitamin D3] Ipratropium [place] [Atrovent 0.5 mg IH BIDP PRN 05/24/17 03/27/19 0.5mg/2.5mL neb] Mirabegron [Myrbetriq] 50 mg PO DAILY 05/24/17 03/27/19 Montelukast Sodium [Montelukast 10 mg PO HS 05/24/17 03/27/19 10mg Tab] Piloc[place]ine HCl [Salagen] 7.5 mg PO TIDP PRN 05/24/17 03/27/19 Sertraline HCl [Zoloft] 100 mg PO DAILY 05/24/17 03/27/19 polyethylene glycoL 3350 [Miralax 17 gm PO DAILYP PRN 05/24/17 03/27/19 17gm Packet] Potassium Chloride [Micro-K 10mEq 20 meq PO DAILY 05/21/18 03/27/19 cap] Ondansetron [Ondansetron Odt 8mg 8 mg PO DAILY 05/22/18 03/27/19 Tab] Trazodone HCl 100 mg PO HS 05/22/18 03/27/19 Acetylcysteine [Mucomyst 20% 4mL 1 ml INHALATION TIDRT 06/10/18 03/27/19 vial] Tiotropium [place] [Spiriva 1 puff IH DAILY 09/15/18 03/27/19 18mcg/puff inhaler] Hydrocortisone 2.5 mg PO HS 09/16/18 03/27/19 Hydrocortisone 5 mg PO DAILY 09/16/18 03/27/19 Atorvastatin Calcium [Atorvastatin 10 mg PO HS 10/28/18 03/27/19 10mg Tab] Bismuth Subsalicylate [Bismuth] 262 mg PO QID 10/28/18 03/27/19 Metoprolol Tartrate [Lopressor 12.5 mg PO BID 10/28/18 03/27/19 25mg tablet] Pantoprazole Sodium [Protonix 40mg 40 mg PO BID 10/28/18 03/27/19 tablet] azithromycin 250 mg tablet 250 mg PO .three times week tab 10/28/18 03/27/19 bumetanide 2 mg tablet 2 mg PO DAILY PRN 10/28/18 03/27/19 Previous Rx's Medication Instructions Recorded hydrOXYzine pamoate [Vistaril 25mg 50 mg PO Q6HP PRN #60 cap 10/01/18 capsule] Allergies Allergy/AdvReac Type Severity Reaction Status Date / Time hydrocodone [HYDROCODONE] Allergy Severe dizziness, Verified 11/06/18 10:52 n/v metoclopramide [From REGLAN] Allergy Severe Swelling Verified 11/06/18 10:52 of Lip/Tongue/Throat codeine [CODEINE] Allergy Intermediate dizziness. Verified 11/06/18 10:52 n/v Sulfa (Sulfonamide AdvReac Mild n/v Verified 11/06/18 10:52 Antibiotics) [SULFA (SULFONAMIDE ANTIBIOTICS)] [facility] History - Hepatitis A Screen Drug use history?: No High risk sexual behaviors?: No History of sexually transmitted infection?: No Currently employed?: No Childcare worker?: No Do you have indoor plumbing?: Yes Do you have electricity?: Yes Attestation statement:: This patient has been screened for Hepatitis A risk factors. I have reviewed the patient's past medical history: Yes Medical History: Reports:: Anxiety, Congestive Heart Failure, Chronic Obstructive Pulmonary Disease (COPD), Gastroesophageal Reflux Disease(GERD), Hyperlipidemia, Hypertension, MRSA Denies:: Cancer, Diabetes Mellitus Type 1, Diabetes Mellitus Type 2 Other Medical History: Reports: Anemia, Arthritis (RA), Hypothyroidism Comment: MRSA pneumonia 2013 requiring prolonged hospitalization and intubation, IgG subclass deficiency Laterality Cases: Left: Arthroscopy Hip, Right: Carpal Tunnel Release Other Surgeries: Yes: Hysterectomy-Total, Other Amputation: No Fractures: Yes - Social History Educational Level: Completed High School Smoking Status: Unknown if ever smoked Tobacco Type: cigarettes # Packs/Day (cigarettes): 1 #Yrs smoked (if former smoker): 40 Alcohol Intake: never Substance Use Type: denies use Occupational Status: retired Housing: house Household Members: family - Psychiatric History Pschychiatric History:: Reports:: Anxiety Family Hx:: Non-contributory ROS Obtained: Yes Systems reviewed as appropriate & no additional complaints - Constitutional Constitutional: Reports fatigue, Reports malaise - Eyes Eyes: Reports system reviewed and no additional complaints, except as docu - ENT Ears, Nose, Mouth, and Throat: Reports system reviewed and no additional complaints, except as docu - Cardiovascular Cardiovascular: Reports system reviewed and no additional complaints, except as docu - Respiratory Respiratory: Yes cough, Yes dyspnea, Yes wheezing - Gastrointestinal Gastrointestingal: Reports: system reviewed and no additional complaints, except as docu - Genitourinary Female Genitourinary: Reports system reviewed and no additional complaints, except as docu - Musculoskeletal Musculoskeletal: Reports system reviewed and no additional complaints, except as docu - Integumentary/Breasts Skin/Breast: Reports system reviewed and no additional complaints, except as docu - Neurologic Neurologic: Reports system reviewed and no additional complaints, except as docu - Endocrine Endocrine: Reports system reviewed and no additional complaints, except as docu - Hematologic/Lymphatic Henatologic/Lymphatic: Reports system reviewed and no additional complaints, except as docu - Allergic/Immunologic Allergic/Immunologic: Reports system reviewed and no additional complaints, except as docu Physical Exam - General General appearance: alert, in no apparent distress - Head Head exam: atraumatic, normocephalic, normal inspection - Eye Eye exam: Present: normal appearance, PERRL, EOMI - ENT ENT exam: Present: normal exam, normal oropharynx, mucous membranes moist, normal external ear exam - Neck Neck exam: Present: normal inspection, full ROM, trachea midline. Absent: me ningismus, lymphadenopathy - Chest Chest inspection: Present: normal inspection, symmetric chest wall rise. Absent: tenderness - Respiratory Respiratory exam: Present: respiratory distress, wheezes, accessory muscle use, prolonged expiratory phase - Cardiovascular Cardiovascular exam: Present: regular rate, normal rhythm, normal heart sounds. Absent: JVD - Abdominal Exam Abdominal exam: Present: soft, normal bowel sounds. Absent: distention, tenderness, guarding - Extremities Exam Extremities exam: Present: normal inspection, full ROM, normal capillary refill. Absent: calf tenderness - Back Exam Back exam: Present: normal inspection. Absent: tenderness - Neurological Exam Neurological exam: Present: alert, oriented X3, CN II-XII intact, normal gait. Absent: motor sensory deficit - Psychiatric Psychiatric exam: Present: normal affect, normal mood - Skin Skin exam: Present: warm, dry, intact, normal color
[2019-05-25 18:03] LABS: Basophils % 0.4 % (0.1-2.0); Eosinophils % 0.3 % (0.1-12.0); Hematocrit 32.6 % (37.0-47.0); Hemoglobin 10.3 g/dL (12.2-16.2); Lymphocytes # 0.6 K/mm3 (0.7-4.5); Lymphocytes % 16.3 % (10-50); Mean Corpuscular HGB Conc 31.7 g/dL (31.8-35.4); Mean Corpuscular Volume 90.3 fl (81-99); Mean Platelet Volume 6.9 fl (7.4-10.4); Monocytes # 0.1 K/mm3 (0.1-1.0); Monocytes % 3.5 % (1.7-9.3); Neutrophils # 2.9 K/mm3 (1.8-7.8); Neutrophils % 79.6 % (37.0-80.0); Platelet Count 161 K/mm3 (142-424); Red Blood Count 3.61 M/mm3 (4.20-5.40); Red Cell Distribution Width 12.8 % (11.5-17.5); White Blood Count 3.7 K/mm3 (4.8-10.8)
[2019-05-25 18:17] LABS: Blood Urea Nitrogen 13 mg/dL (7-18); Calcium 8.3 mg/dL (8.5-10.1); Carbon Dioxide 31 mmol/L (21.0-32.0); Chloride 103 mmol/L (98-107); Glucose 110 mg/dL (74-106); Sodium 140 mmol/L (136-145)
[2019-05-25 18:20] LABS: ABG Base Excess 1.8 mmol/L (-2.4-2.3); ABG HCO3 22.7 mmhg (22.0-26.0); ABG Oxygen Saturation 99 % (90-100); ABG PCO2 21.8 mmhg (35.0-45.0); ABG PO2 163.7 mmhg (80-100); ABG TCO2 23.4 mmhg (23-27)
[2019-05-25 18:22] LABS: Allen's Test ACCEPTABLE; Oxygen 30 %
[2019-05-25 18:25] LABS: ABG PH 7.64 mmol/L (7.35-7.45)
[2019-05-25 19:12] LABS: Microscopic, Urine URINE MICROSCOPIC (MICROSCOPIC)
[2019-05-25 19:23] LABS: Appearance,Urine CLEAR (Clear); Bilirubin,Urine Negative (Negative); Blood, Urine Negative (Negative); Color,Urine YELLOW (Yellow); Glucose,Urine (UA) Negative (Negative); Ketones,Urine Negative (Negative); Leukocyte Esterase,Urine Negative (Negative); PH,Urine 7.5 (5.0-8.5); Protein,Urine Negative (Negative); Urobilinogen,Urine 0.2 EU/dl (0.2)
[2019-05-25 20:32] LABS: Squamous Epithelial Cell,Urine Occasional #/hpf (0-5); WBC,Urine Occasional #/hpf (0-3)
[2019-05-26 06:06] LABS: Basophils % 0.3 % (0.1-2.0); Eosinophils % 0.2 % (0.1-12.0); Hematocrit 29.6 % (37.0-47.0); Hemoglobin 9.8 g/dL (12.2-16.2); Lymphocytes # 1.1 K/mm3 (0.7-4.5); Lymphocytes % 26.3 % (10-50); Mean Corpuscular HGB Conc 32.9 g/dL (31.8-35.4); Mean Corpuscular Volume 90.2 fl (81-99); Mean Platelet Volume 7.5 fl (7.4-10.4); Monocytes # 0.3 K/mm3 (0.1-1.0); Monocytes % 6.2 % (1.7-9.3); Neutrophils # 2.9 K/mm3 (1.8-7.8); Neutrophils % 67.1 % (37.0-80.0); Platelet Count 154 K/mm3 (142-424); Red Blood Count 3.28 M/mm3 (4.20-5.40); Red Cell Distribution Width 12.8 % (11.5-17.5); White Blood Count 4.3 K/mm3 (4.8-10.8)
[2019-05-26 06:21] LABS: Albumin Level 2.8 gm/dL (3.4-5.0); Albumin/Globulin Ratio 0.8 (1.1-1.8); Anion Gap 10.1 mEq/L (5-15); Bilirubin,Total 0.2 mg/dL (0.2-1.0); Calcium 8.1 mg/dL (8.5-10.1); Chol/HDL Ratio 3.7 (1-3.5); Globulin 3.3 gm/dl (1.3-3.2); Phosphorous 4.2 mg/dL (2.4-4.9); Total Protein,Serum 6.1 gm/dL (6.4-8.2)
--- NOTE | 2019-05-26 08:07 | History & Physical Report ---
*Admission Date: 05/26/19 *Chief complaint: Shortness of breath *History of present illness: 73-year-old female with long history of COPD and chronic respiratory failure presented to the emergency department with increasing weakness, nausea and shortness of breath. Over the last month patient has had Pseudomonas bronchitis treated with outpatient IV antibiotics and almost immediately after completing treatment for Pseudomonas bronchitis patient developed bronchitis again with subsequent sputum culture growing MRSA. Patient has had multiple MRSA lower respiratory tract infections throughout her life. She was started on oral doxycycline. Patient did not feel like she was responding to doxycycline and was becoming increasingly short of breath with inability to produce sputum and presented to the emergency department. Patient was admitted for treatment of MRSA bronchitis that had failed outpatient treatment. Patient was also felt to have a pneumonia on initial presentation but official reading by the radiologist is chronic changes. This morning patient feels about the same. She is using a trilogy device for her chronic respiratory failure. She endorses significant nausea. She denies fevers or chills at home [facility] History I have reviewed the patient's past medical history: Yes Medical History: Reports:: Anxiety, Congestive Heart Failure, Chronic Obstructive Pulmonary Disease (COPD), Gastroesophageal Reflux Disease(GERD), Hyperlipidemia, Hypertension, MRSA, Myocardial Infarction Denies:: Cancer, Diabetes Mellitus Type 1, Diabetes Mellitus Type 2 *Have you ever received a pneumonia vaccine?: Yes *Have you received a flu vaccine this season?: Yes Other Medical History: Reports: Anemia, Arthritis (RA), Cataracts, Hypothyroidism, Sinus Problems, Thyroid Disease Laterality Cases: Left: Arthroscopy Hip, Right: Carpal Tunnel Release Other Surgeries: Yes: Cardiac Catheterization, Cholecystectomy, Colonoscopy, Hysterectomy-Total, Tubal Ligation, Other Amputation: No Fractures: Yes - *Social History Educational Level: Completed High School Smoking Status: Unknown if ever smoked Tobacco Type: cigarettes # Packs/Day (cigarettes): 1 #Yrs smoked (if former smoker): 40 Alcohol Intake: never Substance Use Type: denies use *Occupational Status:: retired Housing: house Household Members: family *Travel in the last 8 weeks: None - Psychiatric History Pschychiatric History:: Reports:: Anxiety Family Hx:: Asthma, Hyperlipidemia, Hypertension, Alcoholism Review of Systems - Review of Systems See [facility] Meds Home Medications Medication Instructions Recorded Confirmed Type Albuterol Sulfate [Albuterol 2.5 mg IH Q6HP PRN 05/24/17 05/25/19 History 0.083% 2.5mg/3mL neb] Albuterol Sulfate [Proair Hfa 2 puffs IH Q4HP PRN 05/24/17 05/25/19 History 90mcg/puff Inh] Aspirin [Aspirin 81mg EC Tab] 81 mg PO DAILY 05/24/17 05/25/19 History Budesonide/Formoterol Fumarate 2 puffs IH BID 05/24/17 05/25/19 History [Symbicort 160-4.5 Mcg Inhaler] Buspirone HCl [Buspar 10mg 10 mg PO BID 05/24/17 05/25/19 History tablet] Cholecalciferol (Vitamin D3) 400 unit PO DAILY 05/24/17 05/25/19 History [Vitamin D3] Ipratropium [place] [Atrovent 0.5 mg IH BIDP PRN 05/24/17 05/25/19 History 0.5mg/2.5mL neb] Mirabegron [Myrbetriq] 50 mg PO HS 05/24/17 05/25/19 History Montelukast Sodium [Montelukast 10 mg PO HS 05/24/17 05/25/19 History 10mg Tab] Pilocarpine HCl [Salagen] 7.5 mg PO TIDP PRN 05/24/17 05/25/19 History Sertraline HCl [Zoloft] 100 mg PO HS 05/24/17 05/25/19 History polyethylene glycoL 3350 [Miralax 17 gm PO DAILYP PRN 05/24/17 05/25/19 History 17gm Packet] Potassium Chloride [Micro-K 10mEq 20 meq PO DAILY 05/21/18 05/25/19 History cap] Trazodone HCl 100 mg PO HS 05/22/18 05/25/19 History Acetylcysteine [Mucomyst 20% 4mL 1 ml INHALATION TIDRT 06/10/18 05/25/19 History vial] Tiotropium [place] [Spiriva 1 puff IH DAILY 09/15/18 05/25/19 History 18mcg/puff inhaler] Hydrocortisone 2.5 mg PO HS 09/16/18 05/25/19 History Hydrocortisone 5 mg PO DAILY 09/16/18 05/25/19 History hydrOXYzine pamoate [Vistaril 25mg 50 mg PO Q6HP PRN #60 cap 10/01/18 05/25/19 Rx capsule] Metoprolol Tartrate [Lopressor 12.5 mg PO BID 10/28/18 05/25/19 History 25mg tablet] Pantoprazole Sodium [Protonix 40mg 40 mg PO BID 10/28/18 05/25/19 History tablet] azithromycin 250 mg tablet 250 mg PO .MON, WED, FRI tab 10/28/18 05/25/19 History bumetanide 2 mg tablet 2 mg PO DAILYP PRN 10/28/18 05/25/19 History Sucralfate [Carafate 1gm Tab] 1 gm PO ACHS 05/25/19 05/25/19 History guaiFENesin [Mucinex] 1,200 mg PO BID 05/25/19 05/25/19 History Allergies Allergy/AdvReac Type Severity Reaction Status Date / Time hydrocodone [HYDROCODONE] Allergy Severe dizziness, Verified 05/25/19 22:14 n/v metoclopramide [From REGLAN] Allergy Severe Swelling Verified 05/25/19 22:14 of Lip/Tongue/Throat codeine [CODEINE] Allergy Intermediate dizziness. Verified 05/25/19 22:14 n/v Sulfa (Sulfonamide AdvReac Mild n/v Verified 05/25/19 22:14 Antibiotics) [SULFA (SULFONAMIDE ANTIBIOTICS)] Exam Vital signs and Labs for Last 24 Hours: Temp Pulse Resp BP Pulse Ox 98.6 F 82 20 149/88 H 98 05/25/19 22:40 05/26/19 06:00 05/26/19 06:00 05/26/19 06:00 05/26/19 06:00 Laboratory Results - last 24 hr 05/25/19 17:45: WBC 3.7 L, RBC 3.61 L, Hgb 10.3 L, Hct 32.6 L, MCV 90.3, MCH 28.6, MCHC 31.7 L, RDW 12.8, Plt Count 161, MPV 6.9 L, Neut % (Auto) 79.6, Lymph % (Auto) 16.3, [place] % (Auto) 3.5, Eos % (Auto) 0.3, Baso % (Auto) 0.4, Neut # (Auto) 2.9, Lymph # (Auto) 0.6 L, [place] # (Auto) 0.1, Eos # (Auto) 0.0, Baso # (Auto) 0.0 05/25/19 17:45: Sodium 140, Potassium 5.0, Chloride 103, Carbon Dioxide 31, Anion Gap 11.0, BUN 13, Creatinine 1.12 H, Estimated Creat Clear 66, Estimated GFR 48 L, Est GFR ( Amer) 58 L, Glucose 110 H, Calcium 8.3 L, Troponin I < 0.02 05/25/19 17:45: Lactate 1.3 05/25/19 17:45: B-Natriuretic Peptide 26 05/25/19 18:18: Specimen Source Right radial, O2 % 30, ABG pH 7.64 H*, ABG pCO2 21.8 L, ABG pO2 163.7 H, ABG HCO3 22.7, ABG Total CO2 23.4, ABG O2 Saturation 99, ABG Base Excess 1.8, Carlos Test Acceptable 05/25/19 18:45: Urine Color Yellow, Urine Appearance Clear, Urine pH 7.5, Ur Specific [place] 1.010, Urine Protein Negative, Urine Glucose (UA) Negative, Urine Ketones Negative, Urine Blood Negative, Urine Nitrate Negative, Urine Bilirubin Negative, Urine Urobilinogen 0.2, Ur Leukocyte Esterase Negative, Urine WBC Occasional, Ur Squamous Epith Cells Occasional 05/25/19 20:15: Troponin I < 0.02 05/26/19 05:40: WBC 4.3 L, RBC 3.28 L, Hgb 9.8 L, Hct 29.6 L, MCV 90.2, MCH 29.7, MCHC 32.9, RDW 12.8, Plt Count 154, MPV 7.5, Neut % (Auto) 67.1, Lymph % (Auto) 26.3, [place] % (Auto) 6.2, Eos % (Auto) 0.2, Baso % (Auto) 0.3, Neut # (Auto) 2.9, Lymph # (Auto) 1.1, [place] # (Auto) 0.3, Eos # (Auto) 0.0, Baso # (Auto) 0.0 05/26/19 05:40: Sodium 139, Potassium 4.1, Chloride 102, Carbon Dioxide 31, Anion Gap 10.1, BUN 13, Creatinine 0.95, Estimated Creat Clear 72, Estimated GFR 58 L, Est GFR ( Amer) 70 D, Glucose 98, Calcium 8.1 L, Phosphorus 4.2, Magnesium 1.8, Total Bilirubin 0.2, AST 7 L, ALT 12, Alkaline Phosphatase 51, Total Protein 6.1 L, Albumin 2.8 L, Globulin 3.3 H, Albumin/Globulin Ratio 0.8 L , Triglycerides 113, Cholesterol 168, LDL Cholesterol 99, VLDL Cholesterol 23, HDL Cholesterol 46, Cholesterol/HDL Ratio 3.7 H I & O for Last 24 hours: Intake & Output 05/23/19 05/24/19 05/25/19 05/26/19 11:59 11:59 11:59 11:59 Intake Total 562 / 562 Output Total 600 / 600 Balance -38 / -38 Weight 195 lb 4 oz Narrative: Patient looks weak with mild increased respirations. She can be heard wheezing while standing at the bedside. ENT exam reveals moist oropharynx. Neck has no carotid bruits or lymphadenopathy. Lungs have inspiratory rhonchi with expiratory wheezes and slight prolongation of expiratory phase. Heart has a regular rate and rhythm. Abdomen is soft, nontender, nondistended. Lower extremities have no edema. There are no focal neurologic deficits. Assessment and Plan (1) MRSA (methicillin resistant Staphylococcus aureus) colonization Current visit: Yes Status: Acute Category: Medical Code(s): Z22.322 - Carrier or suspected carrier of Methicillin resistant Staphylococcus aureus (2) MRSA infection (methicillin-resistant Staphylococcus aureus) Current visit: Yes Status: Acute Category: Medical Code(s): A49.02 - Methicillin resistant Staphylococcus aureus infection, unspecified site (3) Rheumatoid arthritis Current visit: Yes Status: Acute Category: Medical Code(s): M06.9 - Rheumatoid arthritis, unspecified (4) Chronic respiratory failure Current visit: Yes Status: Acute Category: Medical Code(s): J96.10 - Chronic respiratory failure, unspecified whether with hypoxia or hypercapnia (5) Acute exacerbation of chronic obstructive airways disease Current visit: Yes Status: Acute Category: Medical Code(s): J44.1 - Chronic obstructive pulmonary disease with (acute) exacerbation (6) IgG subclass deficiency Current visit: No Status: Acute Category: Medical Code(s): D80.3 - Selective deficiency of immunoglobulin G [IgG] subclasses (7) CAD (coronary artery disease) Current visit: No Status: Chronic Qualifiers: Category: Medical Code(s): I25.10 - Atherosclerotic heart disease of [place] coronary artery without angina pectoris (8) HHD (hypertensive heart disease) Current visit: No Status: Chronic Qualifiers: Category: Medical Code(s): I11.9 - Hypertensive heart disease without heart failure (9) HLD (hyperlipidemia) Current visit: No Status: Chronic Qualifiers: Category: Medical Code(s): E78.5 - Hyperlipidemia, unspecified (10) Effect of immunosuppressant therapy Current visit: Yes Status: Acute Category: Medical Code(s): T45.1X5A - Adverse effect of antineoplastic and immunosuppressive drugs, initial encounter (11) Long-term use of immunosuppressant medication Current visit: Yes Status: Acute Category: Medical Code(s): Z79.899 - Other residential (current) drug therapy - Assessment and plan all Dx Assessment and Plan for all problems:: Patient requires inpatient admission for treatment of her MRSA bronchitis and COPD exacerbation that is failed outpatient treatment. She has been started on vancomycin. Initially in the emergency department patient met Sirs criteria but does not have severe sepsis. Vital signs have stabilized. She will be continued on duo nebs every 4 hours. Mucomyst nebs usually improve sputum clearance. Chest physiotherapy has been ordered. Previous hospitalizations have generally been prolonged due to her chronic respiratory failure
--- NOTE | 2019-05-26 08:47 | Pharmacy Consult Notes ---
- Pharmacy Consult Date: 05/26/19 Time: 08:45 Referring provider: DR. REID Reason for Consult:: VANCOMYCIN DOSING Allergies and ADEs:: Allergies Allergy/AdvReac Type Severity Reaction Status Date / Time hydrocodone [HYDROCODONE] Allergy Severe dizziness, Verified 05/25/19 22:14 n/v metoclopramide [From REGLAN] Allergy Severe Swelling Verified 05/25/19 22:14 of Lip/Tongue/Throat codeine [CODEINE] Allergy Intermediate dizziness. Verified 05/25/19 22:14 n/v Sulfa (Sulfonamide AdvReac Mild n/v Verified 05/25/19 22:14 Antibiotics) [SULFA (SULFONAMIDE ANTIBIOTICS)] Home Medications:: Home Medications Medication Instructions Recorded Confirmed Type Albuterol Sulfate [Albuterol 2.5 mg IH Q6HP PRN 05/24/17 05/25/19 History 0.083% 2.5mg/3mL neb] Albuterol Sulfate [Proair Hfa 2 puffs IH Q4HP PRN 05/24/17 05/25/19 History 90mcg/puff Inh] Aspirin [Aspirin 81mg EC Tab] 81 mg PO DAILY 05/24/17 05/25/19 History Budesonide/Formoterol Fumarate 2 puffs IH BID 05/24/17 05/25/19 History [Symbicort 160-4.5 Mcg Inhaler] Buspirone HCl [Buspar 10mg 10 mg PO BID 05/24/17 05/25/19 History tablet] Cholecalciferol (Vitamin D3) 400 unit PO DAILY 05/24/17 05/25/19 History [Vitamin D3] Ipratropium [place] [Atrovent 0.5 mg IH BIDP PRN 05/24/17 05/25/19 History 0.5mg/2.5mL neb] Mirabegron [Myrbetriq] 50 mg PO HS 05/24/17 05/25/19 History Montelukast Sodium [Montelukast 10 mg PO HS 05/24/17 05/25/19 History 10mg Tab] Pilocarpine HCl [Salagen] 7.5 mg PO TIDP PRN 05/24/17 05/25/19 History Sertraline HCl [Zoloft] 100 mg PO HS 05/24/17 05/25/19 History polyethylene glycoL 3350 [Miralax 17 gm PO DAILYP PRN 05/24/17 05/25/19 History 17gm Packet] Potassium Chloride [Micro-K 10mEq 20 meq PO DAILY 05/21/18 05/25/19 History cap] Trazodone HCl 100 mg PO HS 05/22/18 05/25/19 History Acetylcysteine [Mucomyst 20% 4mL 1 ml INHALATION TIDRT 06/10/18 05/25/19 History vial] Tiotropium [place] [Spiriva 1 puff IH DAILY 09/15/18 05/25/19 History 18mcg/puff inhaler] Hydrocortisone 2.5 mg PO HS 09/16/18 05/25/19 History Hydrocortisone 5 mg PO DAILY 09/16/18 05/25/19 History hydrOXYzine pamoate [Vistaril 25mg 50 mg PO Q6HP PRN #60 cap 10/01/18 05/25/19 Rx capsule] Metoprolol Tartrate [Lopressor 12.5 mg PO BID 10/28/18 05/25/19 History 25mg tablet] Pantoprazole Sodium [Protonix 40mg 40 mg PO BID 10/28/18 05/25/19 History tablet] azithromycin 250 mg tablet 250 mg PO .MON, WED, FRI tab 10/28/18 05/25/19 History bumetanide 2 mg tablet 2 mg PO DAILYP PRN 10/28/18 05/25/19 History Sucralfate [Carafate 1gm Tab] 1 gm PO ACHS 05/25/19 05/25/19 History guaiFENesin [Mucinex] 1,200 mg PO BID 05/25/19 05/25/19 History Height: 1.65 m Weight: 88.564 kg Laboratory Results:: Laboratory Results - last 24 hr 05/25/19 17:45: WBC 3.7 L, RBC 3.61 L, Hgb 10.3 L, Hct 32.6 L, MCV 90.3, MCH 28.6, MCHC 31.7 L, RDW 12.8, Plt Count 161, MPV 6.9 L, Neut % (Auto) 79.6, Lymph % (Auto) 16.3, [place] % (Auto) 3.5, Eos % (Auto) 0.3, Baso % (Auto) 0.4, Neut # (Auto) 2.9, Lymph # (Auto) 0.6 L, [place] # (Auto) 0.1, Eos # (Auto) 0.0, Baso # (Auto) 0.0 05/25/19 17:45: Sodium 140, Potassium 5.0, Chloride 103, Carbon Dioxide 31, Anion Gap 11.0, BUN 13, Creatinine 1.12 H, Estimated Creat Clear 66, Estimated GFR 48 L, Est GFR ( Amer) 58 L, Glucose 110 H, Calcium 8.3 L, Troponin I < 0.02 05/25/19 17:45: Lactate 1.3 05/25/19 17:45: B-Natriuretic Peptide 26 05/25/19 18:18: Specimen Source Right radial, O2 % 30, ABG pH 7.64 H*, ABG pCO2 21.8 L, ABG pO2 163.7 H, ABG HCO3 22.7, ABG Total CO2 23.4, ABG O2 Saturation 99, ABG Base Excess 1.8, Carlos Test Acceptable 05/25/19 18:45: Urine Color Yellow, Urine Appearance Clear, Urine pH 7.5, Ur Specific [place] 1.010, Urine Protein Negative, Urine Glucose (UA) Negative, Urine Ketones Negative, Urine Blood Negative, Urine Nitrate Negative, Urine Bilirubin Negative, Urine Urobilinogen 0.2, Ur Leukocyte Esterase Negative, Urine WBC Occasional, Ur Squamous Epith Cells Occasional 05/25/19 20:15: Troponin I < 0.02 05/26/19 05:40: WBC 4.3 L, RBC 3.28 L, Hgb 9.8 L, Hct 29.6 L, MCV 90.2, MCH 29.7, MCHC 32.9, RDW 12.8, Plt Count 154, MPV 7.5, Neut % (Auto) 67.1, Lymph % (Auto) 26.3, [place] % (Auto) 6.2, Eos % (Auto) 0.2, Baso % (Auto) 0.3, Neut # (Auto) 2.9, Lymph # (Auto) 1.1, [place] # (Auto) 0.3, Eos # (Auto) 0.0, Baso # (Auto) 0.0 05/26/19 05:40: Sodium 139, Potassium 4.1, Chloride 102, Carbon Dioxide 31, Anion Gap 10.1, BUN 13, Creatinine 0.95, Estimated Creat Clear 72, Estimated GFR 58 L, Est GFR ( Amer) 70 D, Glucose 98, Calcium 8.1 L, Phosphorus 4.2, Magnesium 1.8, Total Bilirubin 0.2, AST 7 L, ALT 12, Alkaline Phosphatase 51, Total Protein 6.1 L, Albumin 2.8 L, Globulin 3.3 H, Albumin/Globulin Ratio 0.8 L , Triglycerides 113, Cholesterol 168, LDL Cholesterol 99, VLDL Cholesterol 23, HDL Cholesterol 46, Cholesterol/HDL Ratio 3.7 H Medical History: Reports:: Anxiety, Congestive Heart Failure, Chronic Obstructi ve Pulmonary Disease (COPD), Gastroesophageal Reflux Disease(GERD), Hyperlipidemia, Hypertension, MRSA, Myocardial Infarction Denies:: Cancer, Diabetes Mellitus Type 1, Diabetes Mellitus Type 2 Assessment and Plan (1) MRSA (methicillin resistant Staphylococcus aureus) colonization Current visit: Yes Status: Acute Category: Medical Code(s): Z22.322 - Carrier or suspected carrier of Methicillin resistant Staphylococcus aureus (2) MRSA infection (methicillin-resistant Staphylococcus aureus) Current visit: Yes Status: Acute Category: Medical Code(s): A49.02 - Methicillin resistant Staphylococcus aureus infection, unspecified site (3) Rheumatoid arthritis Current visit: Yes Status: Acute Category: Medical Code(s): M06.9 - Rheumatoid arthritis, unspecified (4) Chronic respiratory failure Current visit: Yes Status: Acute Category: Medical Code(s): J96.10 - Chronic respiratory failure, unspecified whether with hypoxia or hypercapnia (5) Acute exacerbation of chronic obstructive airways disease Current visit: Yes Status: Acute Category: Medical Code(s): J44.1 - Chronic obstructive pulmonary disease with (acute) exacerbation (6) IgG subclass deficiency Current visit: No Status: Acute Category: Medical Code(s): D80.3 - Selective deficiency of immunoglobulin G [IgG] subclasses (7) CAD (coronary artery disease) Current visit: No Status: Chronic Qualifiers: Category: Medical Code(s): I25.10 - Atherosclerotic heart disease of [place] coronary artery without angina pectoris (8) HHD (hypertensive heart disease) Current visit: No Status: Chronic Qualifiers: Category: Medical Code(s): I11.9 - Hypertensive heart disease without heart failure (9) HLD (hyperlipidemia) Current visit: No Status: Chronic Qualifiers: Category: Medical Code(s): E78.5 - Hyperlipidemia, unspecified (10) Effect of immunosuppressant therapy Current visit: Yes Status: Acute Category: Medical Code(s): T45.1X5A - Adverse effect of antineoplastic and immunosuppressive drugs, initial encounter (11) Long-term use of immunosuppressant medication Current visit: Yes Status: Acute Category: Medical Code(s): Z79.899 - Other middle or intermediate school principal (current) drug therapy - Assessment and plan all Dx Assessment and Plan for all problems:: BASED ON PATIENT FACTORS, RECOMMEND VANCOMYCIN 1500 MG IV Q24H. PHARMACY WILL FOLLOW DAILY AND ADJUST APPROPRIATE.
--- NOTE | 2019-05-26 11:20 | Pharmacy Consult Notes ---
[facility] Pharmacy VTE Monitoring - Patient Demographics Admission date: 05/25/19 Report Date: 05/26/19 Time: 11:19 Allergies/Adverse Reactions: Patient Allergies hydrocodone [HYDROCODONE] Allergy (Severe, Verified 05/25/19 22:14) dizziness, n/v metoclopramide [From REGLAN] Allergy (Severe, Verified 05/25/19 22:14) Swelling of Lip/Tongue/Throat codeine [CODEINE] Allergy (Intermediate, Verified 05/25/19 22:14) dizziness. n/v Sulfa (Sulfonamide Antibiotics) [SULFA (SULFONAMIDE ANTIBIOTICS)] Adverse Reaction (Mild, Verified 05/25/19 22:14) n/v Height: 1.65 m Weight: 88.564 kg Patient Problems: Current Active Problems MRSA (methicillin resistant Staphylococcus aureus) colonization (Acute) MRSA infection (methicillin-resistant Staphylococcus aureus) (Acute) Rheumatoid arthritis (Acute) Chronic respiratory failure (Acute) Effect of immunosuppressant therapy (Acute) Long-term use of immunosuppressant medication (Acute) Sepsis (Acute) MRSA pneumonia (Acute) Acute exacerbation of chronic obstructive airways disease (Acute) - VTE Risk Labs: VTE Related Lab Results Hgb 9.8 g/dL (12.2-16.2) L 05/26/19 05:40 Hct 29.6 % (37.0-47.0) L 05/26/19 05:40 Plt Count 154 K/mm3 (142-424) 05/26/19 05:40 BUN 13 mg/dL (7-18) 05/26/19 05:40 Creatinine 0.95 mg/dL (0.55-1.02) 05/26/19 05:40 Estimated Creat Clear 72 mL/min (50-200) 05/26/19 05:40 Was VTE Risk Assessment Performed: Yes VTE Score: 14 VTE Risk Level: Moderate Risk Clinical Trial Participant: No - Prophylaxis VTE Prophylaxis Ordered?: Yes Types of VTE Prophylaxis: TEDS Knee High
--- NOTE | 2019-05-27 08:02 | Progress Note ---
Internal Medicine - PN: Subj *Date: 05/27/19 *Time: 07:59 Interval history: Patient did not sleep much overnight as she remains rather anxious secondary to the high doses of steroids she is on. Ativan did help counteract some of the tremors associated with the steroids. In regards to her breathing she reports mild improvement in dyspnea. She does feel like Mucomyst aids with sputum clearance Exam Vital signs and Labs for Last 24 Hours: Temp Pulse Resp BP Pulse Ox 98.2 F 90 20 148/72 H 94 L 05/27/19 04:00 05/27/19 05:45 05/27/19 04:00 05/27/19 04:00 05/27/19 04:00 I & O for Last 24 hours: Intake & Output 05/24/19 05/25/19 05/26/19 05/27/19 11:59 11:59 11:59 11:59 Intake Total 802 / 802 490 / 490 Output Total 600 / 600 950 / 950 Balance 202 / 202 -460 / -460 Weight 195 lb 4 oz 189 lb 9 oz Microbiology Reports for the Last 24 Hours: Microbiology 05/26/19 11:50 Sputum - Expectorated Sputum Gram Stain - Final Narrative: Patient looks more comfortable than yesterday but still with mild increased work of breathing. Lung exam reveals improved aeration anteriorly but still distant breath sounds posteriorly with diffuse expiratory wheezes. Heart has a regular rate and rhythm. Assessment and Plan (1) MRSA (methicillin resistant Staphylococcus aureus) colonization Current visit: Yes Status: Acute Category: Medical Code(s): Z22.322 - Carrier or suspected carrier of Methicillin resistant Staphylococcus aureus (2) MRSA infection (methicillin-resistant Staphylococcus aureus) Current visit: Yes Status: Acute Category: Medical Code(s): A49.02 - Methicillin resistant Staphylococcus aureus infection, unspecified site (3) Rheumatoid arthritis Current visit: Yes Status: Acute Category: Medical Code(s): M06.9 - Rheumatoid arthritis, unspecified (4) Chronic respiratory failure Current visit: Yes Status: Acute Category: Medical Code(s): J96.10 - Chronic respiratory failure, unspecified whether with hypoxia or hypercapnia (5) Acute exacerbation of chronic obstructive airways disease Current visit: Yes Status: Acute Category: Medical Code(s): J44.1 - Chronic obstructive pulmonary disease with (acute) exacerbation (6) IgG subclass deficiency Current visit: No Status: Acute Category: Medical Code(s): D80.3 - Selective deficiency of immunoglobulin G [IgG] subclasses (7) CAD (coronary artery disease) Current visit: No Status: Chronic Qualifiers: Category: Medical Code(s): I25.10 - Atherosclerotic heart disease of [place] coronary artery without angina pectoris (8) HHD (hypertensive heart disease) Current visit: No Status: Chronic Qualifiers: Category: Medical Code(s): I11.9 - Hypertensive heart disease without heart failure (9) HLD (hyperlipidemia) Current visit: No Status: Chronic Qualifiers: Category: Medical Code(s): E78.5 - Hyperlipidemia, unspecified (10) Effect of immunosuppressant therapy Current visit: Yes Status: Acute Category: Medical Code(s): T45.1X5A - Adverse effect of antineoplastic and immunosuppressive drugs, initial encounter (11) Long-term use of immunosuppressant medication Current visit: Yes Status: Acute Category: Medical Code(s): Z79.899 - Other skilled nursing (current) drug therapy - Assessment and plan all Dx Assessment and Plan for all problems:: 1. Continue vancomycin 2. Wean steroids 3. Add incentive spirometer 4. Chest physiotherapy
[2019-05-28 06:17] LABS: Basophils % 0.2 % (0.1-2.0); Eosinophils % 0.4 % (0.1-12.0); Hematocrit 32.3 % (37.0-47.0); Hemoglobin 10.3 g/dL (12.2-16.2); Lymphocytes # 0.8 K/mm3 (0.7-4.5); Lymphocytes % 10.6 % (10-50); Mean Corpuscular HGB Conc 31.8 g/dL (31.8-35.4); Mean Corpuscular Volume 91.8 fl (81-99); Mean Platelet Volume 7.6 fl (7.4-10.4); Monocytes # 0.3 K/mm3 (0.1-1.0); Neutrophils # 6.3 K/mm3 (1.8-7.8); Neutrophils % 84.8 % (37.0-80.0); Platelet Count 189 K/mm3 (142-424); Red Blood Count 3.52 M/mm3 (4.20-5.40); Red Cell Distribution Width 12.8 % (11.5-17.5); White Blood Count 7.4 K/mm3 (4.8-10.8)
[2019-05-28 06:21] LABS: Anion Gap 9.3 mEq/L (5-15); Calcium 8.6 mg/dL (8.5-10.1)
--- NOTE | 2019-05-28 07:44 | Progress Note ---
Internal Medicine - PN: Subj *Date: 05/28/19 *Time: 07:42 Interval history: Patient states her chest feels tight this morning. She used her trilogy device overnight. She just received her DuoNeb along with Mucomyst neb. She continues to receive benefit from Mucomyst as well as chest physiotherapy. Exam Vital signs and Labs for Last 24 Hours: Temp Pulse Resp BP Pulse Ox 97.5 F L 94 H 20 153/77 H 94 L 05/28/19 04:00 05/28/19 06:54 05/28/19 04:00 05/28/19 04:00 05/28/19 06:54 Laboratory Results - last 24 hr 05/27/19 22:25: Vancomycin Trough 15.9 05/28/19 05:57: WBC 7.4 D, RBC 3.52 L, Hgb 10.3 L, Hct 32.3 L, MCV 91.8, MCH 29.2, MCHC 31.8, RDW 12.8, Plt Count 189, MPV 7.6, Neut % (Auto) 84.8 H, Lymph % (Auto) 10.6, [place] % (Auto) 4.0, Eos % (Auto) 0.4, Baso % (Auto) 0.2, Neut # (Auto) 6.3, Lymph # (Auto) 0.8, [place] # (Auto) 0.3, Eos # (Auto) 0.0, Baso # (Auto) 0.0 05/28/19 05:57: Sodium 139, Potassium 4.3, Chloride 104, Carbon Dioxide 30, Anion Gap 9.3, BUN 21 H D, Creatinine 1.18 H D, Estimated Creat Clear 59, Estimated GFR 45 L, Est GFR ( Amer) 55 L D, Glucose 121 H, Calcium 8.6 I & O for Last 24 hours: Intake & Output 05/25/19 05/26/19 05/27/19 05/28/19 11:59 11:59 11:59 11:59 Intake Total 802 / 802 740 / 740 308 / 308 Output Total 600 / 600 950 / 950 710 / 710 Balance 202 / 202 -210 / -210 -402 / -402 Weight 195 lb 4 oz 189 lb 9 oz 194 lb 7 oz Microbiology Reports for the Last 24 Hours: Microbiology 05/25/19 17:45 Blood Blood Culture - Preliminary NO GROWTH AFTER 48 HOURS 05/25/19 17:45 Blood Blood Culture - Preliminary NO GROWTH AFTER 48 HOURS 05/26/19 11:50 Sputum - Expectorated Sputum Gram Stain - Final 05/26/19 11:50 Sputum - Expectorated Sputum Sputum Culture - Preliminary Narrative: She is in no distress. Oropharynx reveals thrush around the right maxillary gums. Lungs have adequate inspiration but expiratory wheezes are diffuse throughout. No focal rales. Heart has a regular rate and rhythm. Abdomen is soft and nontender Assessment and Plan (1) MRSA (methicillin resistant Staphylococcus aureus) colonization Current visit: Yes Status: Acute Category: Medical Code(s): Z22.322 - Carrier or suspected carrier of Methicillin resistant Staphylococcus aureus (2) MRSA infection (methicillin-resistant Staphylococcus aureus) Current visit: Yes Status: Acute Category: Medical Code(s): A49.02 - Methicillin resistant Staphylococcus aureus infection, unspecified site (3) Rheumatoid arthritis Current visit: Yes Status: Acute Category: Medical Code(s): M06.9 - Rheumatoid arthritis, unspecified (4) Chronic respiratory failure Current visit: Yes Status: Acute Category: Medical Code(s): J96.10 - Chronic respiratory failure, unspecified whether with hypoxia or hypercapnia (5) Acute exacerbation of chronic obstructive airways disease Current visit: Yes Status: Acute Category: Medical Code(s): J44.1 - Chronic obstructive pulmonary disease with (acute) exacerbation (6) IgG subclass deficiency Current visit: No Status: Acute Category: Medical Code(s): D80.3 - Selective deficiency of immunoglobulin G [IgG] subclasses (7) CAD (coronary artery disease) Current visit: No Status: Chronic Qualifiers: Category: Medical Code(s): I25.10 - Atherosclerotic heart disease of [place] coronary artery without angina pectoris (8) HHD (hypertensive heart disease) Current visit: No Status: Chronic Qualifiers: Category: Medical Code(s): I11.9 - Hypertensive heart disease without heart failure (9) HLD (hyperlipidemia) Current visit: No Status: Chronic Qualifiers: Category: Medical Code(s): E78.5 - Hyperlipidemia, unspecified (10) Effect of immunosuppressant therapy Current visit: Yes Status: Acute Category: Medical Code(s): T45.1X5A - Adverse effect of antineoplastic and immunosuppressive drugs, initial encounter (11) Long-term use of immunosuppressant medication Current visit: Yes Status: Acute Category: Medical Code(s): Z79.899 - Other senior living (current) drug therapy - Assessment and plan all Dx Assessment and Plan for all problems:: 1. Continue IV vancomycin along with steroids and aerosols. As per patient's history she is slowly responding.
--- NOTE | 2019-05-28 09:06 | Progress Note ---
Internal Medicine - PN: Subj *Date: 05/28/19 *Time: 09:06 Exam Vital signs and Labs for Last 24 Hours: Temp Pulse Resp BP Pulse Ox 97.5 F L 94 H 20 153/77 H 94 L 05/28/19 04:00 05/28/19 06:54 05/28/19 04:00 05/28/19 04:00 05/28/19 06:54 Laboratory Results - last 24 hr 05/27/19 22:25: Vancomycin Trough 15.9 05/28/19 05:57: WBC 7.4 D, RBC 3.52 L, Hgb 10.3 L, Hct 32.3 L, MCV 91.8, MCH 29.2, MCHC 31.8, RDW 12.8, Plt Count 189, MPV 7.6, Neut % (Auto) 84.8 H, Lymph % (Auto) 10.6, [place] % (Auto) 4.0, Eos % (Auto) 0.4, Baso % (Auto) 0.2, Neut # (Auto) 6.3, Lymph # (Auto) 0.8, [place] # (Auto) 0.3, Eos # (Auto) 0.0, Baso # (Auto) 0.0 05/28/19 05:57: Sodium 139, Potassium 4.3, Chloride 104, Carbon Dioxide 30, Anion Gap 9.3, BUN 21 H D, Creatinine 1.18 H D, Estimated Creat Clear 59, Estimated GFR 45 L, Est GFR ( Amer) 55 L D, Glucose 121 H, Calcium 8.6 I & O for Last 24 hours: Intake & Output 05/25/19 05/26/19 05/27/19 05/28/19 23:59 23:59 23:59 23:59 Intake Total 1032 / 1032 808 / 1058 250 / 250 Output Total 600 / 600 1660 / 1660 Balance 432 / 432 -852 / -602 250 / 250 Weight 78.075 kg 88.564 kg 86 kg 88.195 kg Microbiology Reports for the Last 24 Hours: Microbiology 05/26/19 11:50 Sputum - Expectorated Sputum Gram Stain - Final 05/26/19 11:50 Sputum - Expectorated Sputum Sputum Culture - Preliminary Gram Positive Cocci 05/25/19 17:45 Blood Blood Culture - Preliminary NO GROWTH AFTER 48 HOURS 05/25/19 17:45 Blood Blood Culture - Preliminary NO GROWTH AFTER 48 HOURS Assessment and Plan (1) MRSA (methicillin resistant Staphylococcus aureus) colonization Current visit: Yes Status: Acute Category: Medical Code(s): Z22.322 - Carrier or suspected carrier of Methicillin resistant Staphylococcus aureus (2) MRSA infection (methicillin-resistant Staphylococcus aureus) Current visit: Yes Status: Acute Category: Medical Code(s): A49.02 - Me thicillin resistant Staphylococcus aureus infection, unspecified site (3) Rheumatoid arthritis Current visit: Yes Status: Acute Category: Medical Code(s): M06.9 - Rheumatoid arthritis, unspecified (4) Chronic respiratory failure Current visit: Yes Status: Acute Category: Medical Code(s): J96.10 - Chronic respiratory failure, unspecified whether with hypoxia or hypercapnia (5) Acute exacerbation of chronic obstructive airways disease Current visit: Yes Status: Acute Category: Medical Code(s): J44.1 - Chronic obstructive pulmonary disease with (acute) exacerbation (6) IgG subclass deficiency Current visit: No Status: Acute Category: Medical Code(s): D80.3 - Selective deficiency of immunoglobulin G [IgG] subclasses (7) CAD (coronary artery disease) Current visit: No Status: Chronic Qualifiers: Category: Medical Code(s): I25.10 - Atherosclerotic heart disease of [place] coronary artery without angina pectoris (8) HHD (hypertensive heart disease) Current visit: No Status: Chronic Qualifiers: Category: Medical Code(s): I11.9 - Hypertensive heart disease without heart failure (9) HLD (hyperlipidemia) Current visit: No Status: Chronic Qualifiers: Category: Medical Code(s): E78.5 - Hyperlipidemia, unspecified (10) Effect of immunosuppressant therapy Current visit: Yes Status: Acute Category: Medical Code(s): T45.1X5A - Adverse effect of antineoplastic and immunosuppressive drugs, initial encounter (11) Long-term use of immunosuppressant medication Current visit: Yes Status: Acute Category: Medical Code(s): Z79.899 - Other exterminator helper termite (current) drug therapy The patient's infection will respond to the chosen ABx?: Yes Is the patient receiving the right drug, dose, and route?: Yes Could a more targeted ABx be ordered?: No (GRAM POSITIVE COCCI GROWING IN SPUTUM. SENSITIVITIES PENDING.)
--- NOTE | 2019-05-28 11:18 | Pharmacy Consult Notes ---
- Pharmacy Consult Date: 05/28/19 Time: 11:17 Referring provider: DR. REID Reason for Consult:: VANCOMYCIN TROUGH LEVEL Allergies and ADEs:: Allergies Allergy/AdvReac Type Severity Reaction Status Date / Time hydrocodone [HYDROCODONE] Allergy Severe dizziness, Verified 05/25/19 22:14 n/v metoclopramide [From REGLAN] Allergy Severe Swelling Verified 05/25/19 22:14 of Lip/Tongue/Throat codeine [CODEINE] Allergy Intermediate dizziness. Verified 05/25/19 22:14 n/v Sulfa (Sulfonamide AdvReac Mild n/v Verified 05/25/19 22:14 Antibiotics) [SULFA (SULFONAMIDE ANTIBIOTICS)] Home Medications:: Home Medications Medication Instructions Recorded Confirmed Type Albuterol Sulfate [Albuterol 2.5 mg IH Q6HP PRN 05/24/17 05/25/19 History 0.083% 2.5mg/3mL neb] Albuterol Sulfate [Proair Hfa 2 puffs IH Q4HP PRN 05/24/17 05/25/19 History 90mcg/puff Inh] Aspirin [Aspirin 81mg EC Tab] 81 mg PO DAILY 05/24/17 05/25/19 History Budesonide/Formoterol Fumarate 2 puffs IH BID 05/24/17 05/25/19 History [Symbicort 160-4.5 Mcg Inhaler] Buspirone HCl [Buspar 10mg 10 mg PO BID 05/24/17 05/25/19 History tablet] Cholecalciferol (Vitamin D3) 400 unit PO DAILY 05/24/17 05/25/19 History [Vitamin D3] Ipratropium [place] [Atrovent 0.5 mg IH BIDP PRN 05/24/17 05/25/19 History 0.5mg/2.5mL neb] Mirabegron [Myrbetriq] 50 mg PO HS 05/24/17 05/25/19 History Montelukast Sodium [Montelukast 10 mg PO HS 05/24/17 05/25/19 History 10mg Tab] Pilocarpine HCl [Salagen] 7.5 mg PO TIDP PRN 05/24/17 05/25/19 History Sertraline HCl [Zoloft] 100 mg PO HS 05/24/17 05/25/19 History polyethylene glycoL 3350 [Miralax 17 gm PO DAILYP PRN 05/24/17 05/25/19 History 17gm Packet] Potassium Chloride [Micro-K 10mEq 20 meq PO DAILY 05/21/18 05/25/19 History cap] Trazodone HCl 100 mg PO HS 05/22/18 05/25/19 History Acetylcysteine [Mucomyst 20% 4mL 1 ml INHALATION TIDRT 06/10/18 05/25/19 History vial] Tiotropium [place] [Spiriva 1 puff IH DAILY 09/15/18 05/25/19 History 18mcg/puff inhaler] Hydrocortisone 2.5 mg PO HS 09/16/18 05/25/19 History Hydrocortisone 5 mg PO DAILY 09/16/18 05/25/19 History hydrOXYzine pamoate [Vistaril 25mg 50 mg PO Q6HP PRN #60 cap 10/01/18 05/25/19 Rx capsule] Metoprolol Tartrate [Lopressor 12.5 mg PO BID 10/28/18 05/25/19 History 25mg tablet] Pantoprazole Sodium [Protonix 40mg 40 mg PO BID 10/28/18 05/25/19 History tablet] azithromycin 250 mg tablet 250 mg PO .MON, WED, FRI tab 10/28/18 05/25/19 History bumetanide 2 mg tablet 2 mg PO DAILYP PRN 10/28/18 05/25/19 History Sucralfate [Carafate 1gm Tab] 1 gm PO ACHS 05/25/19 05/25/19 History guaiFENesin [Mucinex] 1,200 mg PO BID 05/25/19 05/25/19 History Height: 1.65 m Weight: 88.195 kg Laboratory Results:: Laboratory Results - last 24 hr 05/27/19 22:25: Vancomycin Trough 15.9 05/28/19 05:57: WBC 7.4 D, RBC 3.52 L, Hgb 10.3 L, Hct 32.3 L, MCV 91.8, MCH 29.2, MCHC 31.8, RDW 12.8, Plt Count 189, MPV 7.6, Neut % (Auto) 84.8 H, Lymph % (Auto) 10.6, [place] % (Auto) 4.0, Eos % (Auto) 0.4, Baso % (Auto) 0.2, Neut # (Auto) 6.3, Lymph # (Auto) 0.8, [place] # (Auto) 0.3, Eos # (Auto) 0.0, Baso # (Auto) 0.0 05/28/19 05:57: Sodium 139, Potassium 4.3, Chloride 104, Carbon Dioxide 30, Anion Gap 9.3, BUN 21 H D, Creatinine 1.18 H D, Estimated Creat Clear 59, Estimated GFR 45 L, Est GFR ( Amer) 55 L D, Glucose 121 H, Calcium 8.6 Medical History: Reports:: Anxiety, Congestive Heart Failure, Chronic Obstructive Pulmonary Disease (COPD), Gastroesophageal Reflux Disease(GERD), Hyperlipidemia, Hypertension, MRSA, Myocardial Infarction Denies:: Cancer, Diabetes Mellitus Type 1, Diabetes Mellitus Type 2 Assessment and Plan (1) MRSA (methicillin resistant Staphylococcus aureus) colonization Current visit: Yes Status: Acute Category: Medical Code(s): Z22.322 - Carrier or suspected carrier of Methicillin resistant Staphylococcus aureus (2) MRSA infection (methicillin-resistant Staphylococcus aureus) Current visit: Yes Status: Acute Category: Medical Code(s): A49.02 - Methicillin resistant Staphylococcus aureus infection, unspecified site (3) Rheumatoid arthritis Current visit: Yes Status: Acute Category: Medical Code(s): M06.9 - Rheumatoid arthritis, unspecified (4) Chronic respiratory failure Current visit: Yes Status: Acute Category: Medical Code(s): J96.10 - Chronic respiratory failure, unspecified whether with hypoxia or hypercapnia (5) Acute exacerbation of chronic obstructive airways disease Current visit: Yes Status: Acute Category: Medical Code(s): J44.1 - Chronic obstructive pulmonary disease with (acute) exacerbation (6) IgG subclass deficiency Current visit: No Status: Acute Category: Medical Code(s): D80.3 - Selective deficiency of immunoglobulin G [IgG] subclasses (7) CAD (coronary artery disease) Current visit: No Status: Chronic Qualifiers: Category: Medical Code(s): I25.10 - Atherosclerotic heart disease of [place] coronary artery without angina pectoris (8) HHD (hypertensive heart disease) Current visit: No Status: Chronic Qualifiers: Category: Medical Code(s): I11.9 - Hypertensive heart disease without heart failure (9) HLD (hyperlipidemia) Current visit: No Status: Chronic Qualifiers: Category: Medical Code(s): E78.5 - Hyperlipidemia, unspecified (10) Effect of immunosuppressant therapy Current visit: Yes Status: Acute Category: Medical Code(s): T45.1X5A - Adverse effect of antineoplastic and immunosuppressive drugs, initial encounter (11) Long-term use of immunosuppressant medication Current visit: Yes Status: Acute Category: Medical Code(s): Z79.899 - Other [facility] (current) drug therapy - Assessment and plan all Dx Assessment and Plan for all problems:: BASED ON PATIENT FACTORS AND VANCOMYCIN TROUGH LEVEL, RECOMMEND CONTINUING VANCOMYCIN 1500 MG IV Q24H. PHARMACY WILL CONTINUE TO MONITOR DAILY AND ADJUST APPROPRIATE.
--- NOTE | 2019-05-29 07:41 | Progress Note ---
Internal Medicine - PN: Subj *Date: 05/29/19 *Time: 07:40 Interval history: Patient feels like she is having a harder time breathing this morning and reports chest tightness and wheezing. Exam Vital signs and Labs for Last 24 Hours: Temp Pulse Resp BP Pulse Ox 97.7 F 82 20 145/75 H 94 L 05/29/19 04:00 05/29/19 06:43 05/29/19 04:00 05/29/19 04:00 05/29/19 06:43 I & O for Last 24 hours: Intake & Output 05/26/19 05/27/19 05/28/19 05/29/19 11:59 11:59 11:59 11:59 Intake Total 802 / 802 740 / 740 918 / 918 660 / 660 Output Total 600 / 600 950 / 950 710 / 710 1350 / 1350 Balance 202 / 202 -210 / -210 208 / 208 -690 / -690 Weight 195 lb 4 oz 189 lb 9 oz 194 lb 7 oz 195 lb 7 oz Microbiology Reports for the Last 24 Hours: Microbiology 05/26/19 11:50 Sputum - Expectorated Sputum Gram Stain - Final 05/26/19 11:50 Sputum - Expectorated Sputum Sputum Culture - Preliminary Gram Positive Cocci Narrative: She does not look distressed and shows no signs of increased work of breathing. Lung exam reveals fair aeration with minimal wheezing this morning although the patient had a breathing treatment 1 hour prior. Heart has a regular rate and rhythm. Assessment and Plan (1) MRSA (methicillin resistant Staphylococcus aureus) colonization Current visit: Yes Status: Acute Category: Medical Code(s): Z22.322 - Carrier or suspected carrier of Methicillin resistant Staphylococcus aureus (2) MRSA infection (methicillin-resistant Staphylococcus aureus) Current visit: Yes Status: Acute Category: Medical Code(s): A49.02 - Methicillin resistant Staphylococcus aureus infection, unspecified site (3) Rheumatoid arthritis Current visit: Yes Status: Acute Category: Medical Code(s): M06.9 - Rheumatoid arthritis, unspecified (4) Chronic respiratory failure Current visit: Yes Status: Acute Category: Medical Code(s): J96.10 - Chronic respiratory failure, unspecified whether with hypoxia or hypercapnia (5) Acute exacerbation of chronic obstructive airways disease Current visit: Yes Status: Acute Category: Medical Code(s): J44.1 - Chronic obstructive pulmonary disease with (acute) exacerbation (6) IgG subclass deficiency Current visit: No Status: Acute Category: Medical Code(s): D80.3 - Selective deficiency of immunoglobulin G [IgG] subclasses (7) CAD (coronary artery disease) Current visit: No Status: Chronic Qualifiers: Category: Medical Code(s): I25.10 - Atherosclerotic heart disease of [place] coronary artery without angina pectoris (8) HHD (hypertensive heart disease) Current visit: No Status: Chronic Qualifiers: Category: Medical Code(s): I11.9 - Hypertensive heart disease without heart failure (9) HLD (hyperlipidemia) Current visit: No Status: Chronic Qualifiers: Category: Medical Code(s): E78.5 - Hyperlipidemia, unspecified (10) Effect of immunosuppressant therapy Current visit: Yes Status: Acute Category: Medical Code(s): T45.1X5A - Adverse effect of antineoplastic and immunosuppressive drugs, initial encounter (11) Long-term use of immunosuppressant medication Current visit: Yes Status: Acute Category: Medical Code(s): Z79.899 - Other long term acute care registered nurse (current) drug therapy - Assessment and plan all Dx Assessment and Plan for all problems:: 1. Continue vancomycin for her MRSA bronchitis 2. Continue IV steroids but no attempt to wean steroids today 3. Remove Hayes catheter and out of bed to chair with assistance
--- NOTE | 2019-05-30 08:22 | Progress Note ---
Internal Medicine - PN: Subj *Date: 05/30/19 *Time: 08:19 Interval history: Patient continues to endorse a sensation of chest tightness like she cannot get a deep breath. This is made using her trilogy device at night difficult. Cough however has improved. Patient does however report concern over depression. She is taking sertraline and feels like the medicine is ineffective. She feels sad and on edge most of the time Exam Vital signs and Labs for Last 24 Hours: Temp Pulse Resp BP Pulse Ox 98.8 F 84 21 144/74 H 94 L 05/30/19 04:00 05/30/19 07:10 05/30/19 04:00 05/30/19 04:00 05/30/19 07:10 Laboratory Results - last 24 hr 05/29/19 22:25: Vancomycin Trough 16.8 I & O for Last 24 hours: Intake & Output 05/27/19 05/28/19 05/29/19 05/30/19 11:59 11:59 11:59 11:59 Intake Total 740 / 740 918 / 918 1373 / 1373 480 / 480 Output Total 950 / 950 710 / 710 2900 / 2900 900 / 900 Balance -210 / -210 208 / 208 -1527 / -1527 -420 / -420 Weight 189 lb 9 oz 194 lb 7 oz 195 lb 7 oz 193 lb 8 oz Microbiology Reports for the Last 24 Hours: Microbiology 05/26/19 11:50 Sputum - Expectorated Sputum Gram Stain - Final 05/26/19 11:50 Sputum - Expectorated Sputum Sputum Culture - Preliminary Staphylococcus aureus Narrative: Patient is in no distress. Lung exam reveals distant breath sounds but no wheezing this morning. Heart has a regular rate and rhythm Assessment and Plan (1) MRSA (methicillin resistant Staphylococcus aureus) colonization Current visit: Yes Status: Acute Category: Medical Code(s): Z22.322 - Carrier or suspected carrier of Methicillin resistant Staphylococcus aureus (2) MRSA infection (methicillin-resistant Staphylococcus aureus) Current visit: Yes Status: Acute Category: Medical Code(s): A49.02 - Methicillin resistant Staphylococcus aureus infection, unspecified site (3) Rheumatoid arthritis Current visit: Yes Status: Acute Category: Medical Code(s): M06.9 - Rheumatoid arthritis, unspecified (4) Chronic respiratory failure Current visit: Yes Status: Acute Category: Medical Code(s): J96.10 - Chronic respiratory failure, unspecified whether with hypoxia or hypercapnia (5) Acute exacerbation of chronic obstructive airways disease Current visit: Yes Status: Acute Category: Medical Code(s): J44.1 - Chronic obstructive pulmonary disease with (acute) exacerbation (6) IgG subclass deficiency Current visit: No Status: Acute Category: Medical Code(s): D80.3 - Selective deficiency of immunoglobulin G [IgG] subclasses (7) CAD (coronary artery disease) Current visit: No Status: Chronic Qualifiers: Category: Medical Code(s): I25.10 - Atherosclerotic heart disease of [place] coronary artery without angina pectoris (8) HHD (hypertensive heart disease) Current visit: No Status: Chronic Qualifiers: Category: Medical Code(s): I11.9 - Hypertensive heart disease without heart failure (9) HLD (hyperlipidemia) Current visit: No Status: Chronic Qualifiers: Category: Medical Code(s): E78.5 - Hyperlipidemia, unspecified (10) Effect of immunosuppressant therapy Current visit: Yes Status: Acute Category: Medical Code(s): T45.1X5A - Adverse effect of antineoplastic and immunosuppressive drugs, initial encounter (11) Long-term use of immunosuppressant medication Current visit: Yes Status: Acute Category: Medical Code(s): Z79.899 - Other detention (current) drug therapy (12) Major depression Current visit: Yes Status: Acute Category: Medical Code(s): F32.9 - Major depressive disorder, single episode, unspecified - Assessment and plan all Dx Assessment and Plan for all problems:: 1. Wean steroids 2. Begin weaning her sertraline in anticipation of placing the patient on Effexor 3. Continue vancomycin. Patient will need a total of 2 weeks of vancomycin. Currently her son-in-law is at home and diagnosed with influenza. This is delayed patient's discharge but I would still anticipate discharging her on Saturday or Saturday of this coming week with home health
--- NOTE | 2019-05-30 11:34 | Pharmacy Consult Notes ---
- Pharmacy Consult Date: 05/30/19 Time: 11:33 Referring provider: DR. REID Reason for Consult:: VANCOMCYIN LEVEL Allergies and ADEs:: Allergies Allergy/AdvReac Type Severity Reaction Status Date / Time hydrocodone [HYDROCODONE] Allergy Severe dizziness, Verified 05/25/19 22:14 n/v metoclopramide [From REGLAN] Allergy Severe Swelling Verified 05/25/19 22:14 of Lip/Tongue/Throat codeine [CODEINE] Allergy Intermediate dizziness. Verified 05/25/19 22:14 n/v Sulfa (Sulfonamide AdvReac Mild n/v Verified 05/25/19 22:14 Antibiotics) [SULFA (SULFONAMIDE ANTIBIOTICS)] Home Medications:: Home Medications Medication Instructions Recorded Confirmed Type Albuterol Sulfate [Albuterol 2.5 mg IH Q6HP PRN 05/24/17 05/25/19 History 0.083% 2.5mg/3mL neb] Albuterol Sulfate [Proair Hfa 2 puffs IH Q4HP PRN 05/24/17 05/25/19 History 90mcg/puff Inh] Aspirin [Aspirin 81mg EC Tab] 81 mg PO DAILY 05/24/17 05/25/19 History Budesonide/Formoterol Fumarate 2 puffs IH BID 05/24/17 05/25/19 History [Symbicort 160-4.5 Mcg Inhaler] Buspirone HCl [Buspar 10mg 10 mg PO BID 05/24/17 05/25/19 History tablet] Cholecalciferol (Vitamin D3) 400 unit PO DAILY 05/24/17 05/25/19 History [Vitamin D3] Ipratropium [place] [Atrovent 0.5 mg IH BIDP PRN 05/24/17 05/25/19 History 0.5mg/2.5mL neb] Mirabegron [Myrbetriq] 50 mg PO HS 05/24/17 05/25/19 History Montelukast Sodium [Montelukast 10 mg PO HS 05/24/17 05/25/19 History 10mg Tab] Pilocarpine HCl [Salagen] 7.5 mg PO TIDP PRN 05/24/17 05/25/19 History Sertraline HCl [Zoloft] 100 mg PO HS 05/24/17 05/25/19 History polyethylene glycoL 3350 [Miralax 17 gm PO DAILYP PRN 05/24/17 05/25/19 History 17gm Packet] Potassium Chloride [Micro-K 10mEq 20 meq PO DAILY 05/21/18 05/25/19 History cap] Trazodone HCl 100 mg PO HS 05/22/18 05/25/19 History Acetylcysteine [Mucomyst 20% 4mL 1 ml INHALATION TIDRT 06/10/18 05/25/19 History vial] Tiotropium [place] [Spiriva 1 puff IH DAILY 09/15/18 05/25/19 History 18mcg/puff inhaler] Hydrocortisone 2.5 mg PO HS 09/16/18 05/25/19 History Hydrocortisone 5 mg PO DAILY 09/16/18 05/25/19 History hydrOXYzine pamoate [Vistaril 25mg 50 mg PO Q6HP PRN #60 cap 10/01/18 05/25/19 Rx capsule] Metoprolol Tartrate [Lopressor 12.5 mg PO BID 10/28/18 05/25/19 History 25mg tablet] Pantoprazole Sodium [Protonix 40mg 40 mg PO BID 10/28/18 05/25/19 History tablet] azithromycin 250 mg tablet 250 mg PO .MON, WED, FRI tab 10/28/18 05/25/19 History bumetanide 2 mg tablet 2 mg PO DAILYP PRN 10/28/18 05/25/19 History Sucralfate [Carafate 1gm Tab] 1 gm PO ACHS 05/25/19 05/25/19 History guaiFENesin [Mucinex] 1,200 mg PO BID 05/25/19 05/25/19 History Height: 1.65 m Weight: 87.77 kg Laboratory Results:: Laboratory Results - last 24 hr 05/29/19 22:25: Vancomycin Trough 16.8 Medical History: Reports:: Anxiety, Congestive Heart Failure, Chronic Obstructive Pulmonary Disease (COPD), Gastroesophageal Reflux Disease(GERD), Hyperlipidemia, Hypertension, MRSA, Myocardial Infarction Denies:: Cancer, Diabetes Mellitus Type 1, Diabetes Mellitus Type 2 Assessment and Plan (1) MRSA (methicillin resistant Staphylococcus aureus) colonization Current visit: Yes Status: Acute Category: Medical Code(s): Z22.322 - Car rier or suspected carrier of Methicillin resistant Staphylococcus aureus (2) MRSA infection (methicillin-resistant Staphylococcus aureus) Current visit: Yes Status: Acute Category: Medical Code(s): A49.02 - Methicillin resistant Staphylococcus aureus infection, unspecified site (3) Rheumatoid arthritis Current visit: Yes Status: Acute Category: Medical Code(s): M06.9 - Rheumatoid arthritis, unspecified (4) Chronic respiratory failure Current visit: Yes Status: Acute Category: Medical Code(s): J96.10 - Chronic respiratory failure, unspecified whether with hypoxia or hypercapnia (5) Acute exacerbation of chronic obstructive airways disease Current visit: Yes Status: Acute Category: Medical Code(s): J44.1 - Chronic obstructive pulmonary disease with (acute) exacerbation (6) IgG subclass deficiency Current visit: No Status: Acute Category: Medical Code(s): D80.3 - Selective deficiency of immunoglobulin G [IgG] subclasses (7) CAD (coronary artery disease) Current visit: No Status: Chronic Qualifiers: Category: Medical Code(s): I25.10 - Atherosclerotic heart disease of [place] coronary artery without angina pectoris (8) HHD (hypertensive heart disease) Current visit: No Status: Chronic Qualifiers: Category: Medical Code(s): I11.9 - Hypertensive heart disease without heart failure (9) HLD (hyperlipidemia) Current visit: No Status: Chronic Qualifiers: Category: Medical Code(s): E78.5 - Hyperlipidemia, unspecified (10) Effect of immunosuppressant therapy Current visit: Yes Status: Acute Category: Medical Code(s): T45.1X5A - Adverse effect of antineoplastic and immunosuppressive drugs, initial encounter (11) Long-term use of immunosuppressant medication Current visit: Yes Status: Acute Category: Medical Code(s): Z79.899 - Other watermelon harvesting supervisor (current) drug therapy (12) Major depression Current visit: Yes Status: Acute Category: Medical Code(s): F32.9 - Major depressive disorder, single episode, unspecified - Assessment and plan all Dx Assessment and Plan for all problems:: KYM'S VANCOMCYIN TROUGH LEVEL WAS 16.8 MCG/ML OVERNIGHT. RECOMMEND CONTINUING WITH VANCOMYCIN 1500 MG Q24H AT THIS TIME.
--- NOTE | 2019-05-31 08:27 | Progress Note ---
Internal Medicine - PN: Subj *Date: 05/31/19 *Time: 08:25 Interval history: Patient reports poor quality sleep. At home she uses Belsomra which is not been available here in the hospital. She has tolerated her trilogy device a little better overnight. She reports improvement in sputum clearance with use of Mucomyst. Exam Vital signs and Labs for Last 24 Hours: Temp Pulse Resp BP Pulse Ox 98.8 F 101 H 20 165/75 H 97 05/31/19 08:00 05/31/19 08:00 05/31/19 08:00 05/31/19 08:00 05/31/19 08:00 I & O for Last 24 hours: Intake & Output 05/28/19 05/29/19 05/30/19 05/31/19 11:59 11:59 11:59 11:59 Intake Total 918 / 918 1373 / 1373 960 / 1200 840 / 840 Output Total 710 / 710 2900 / 2900 900 / 1200 1300 / 1300 Balance 208 / 208 -1527 / -1527 60 / 0 -460 / -460 Weight 194 lb 7 oz 195 lb 7 oz 193 lb 8 oz 190 lb 9 oz Microbiology Reports for the Last 24 Hours: Microbiology 05/25/19 17:45 Blood Blood Culture - Final NO GROWTH AFTER 5 DAYS 05/25/19 17:45 Blood Blood Culture - Final NO GROWTH AFTER 5 DAYS Narrative: Patient is in no distress this morning. Lung exam reveals distant but overall clear dinero anteriorly. She has some expiratory wheezes posteriorly. Cough is loose. Heart has a regular rate and rhythm. Assessment and Plan (1) MRSA (methicillin resistant Staphylococcus aureus) colonization Current visit: Yes Status: Acute Category: Medical Code(s): Z22.322 - Carrier or suspected carrier of Methicillin resistant Staphylococcus aureus (2) MRSA infection (methicillin-resistant Staphylococcus aureus) Current visit: Yes Status: Acute Category: Medical Code(s): A49.02 - Methicillin resistant Staphylococcus aureus infection, unspecified site (3) Rheumatoid arthritis Current visit: Yes Status: Acute Category: Medical Code(s): M06.9 - Rheumatoid arthritis, unspecified (4) Chronic respiratory failure Current visit: Yes Status: Acute Category: Medical Code(s): J96.10 - Chronic respiratory failure, unspecified whether with hypoxia or hypercapnia (5) Acute exacerbation of chronic obstructive airways disease Current visit: Yes Status: Acute Category: Medical Code(s): J44.1 - Chronic obstructive pulmonary disease with (acute) exacerbation (6) IgG subclass deficiency Current visit: No Status: Acute Category: Medical Code(s): D80.3 - Select [place] deficiency of immunoglobulin G [IgG] subclasses (7) CAD (coronary artery disease) Current visit: No Status: Chronic Qualifiers: Category: Medical Code(s): I25.10 - Atherosclerotic heart disease of [place] coronary artery without angina pectoris (8) HHD (hypertensive heart disease) Current visit: No Status: Chronic Qualifiers: Category: Medical Code(s): I11.9 - Hypertensive heart disease without heart failure (9) HLD (hyperlipidemia) Current visit: No Status: Chronic Qualifiers: Category: Medical Code(s): E78.5 - Hyperlipidemia, unspecified (10) Effect of immunosuppressant therapy Current visit: Yes Status: Acute Category: Medical Code(s): T45.1X5A - Adverse effect of antineoplastic and immunosuppressive drugs, initial encounter (11) Long-term use of immunosuppressant medication Current visit: Yes Status: Acute Category: Medical Code(s): Z79.899 - Other tank terminal gauger (current) drug therapy (12) Major depression Current visit: Yes Status: Acute Category: Medical Code(s): F32.9 - Major depressive disorder, single episode, unspecified - Assessment and plan all Dx Assessment and Plan for all problems:: Continue IV vancomycin for her MRSA bronchitis. She is a candidate for discharge tomorrow although this is somewhat dependent upon her home environment. Patient lives with her daughter and son-in-law. Patient's son-in-law contracted the flu on May 27 and I have asked her to find out if he is still febrile or not. Certainly this patient is at high risk for complications from influenza. She did have her flu vaccine but with the steroids she has been on she is likely somewhat immune compromised.
[2019-05-31 09:01] LABS: Anion Gap 12.2 mEq/L (5-15)
--- NOTE | 2019-06-01 07:14 | Progress Note ---
Internal Medicine - PN: Subj *Date: 06/01/19 *Time: 07:12 Interval history: Patient complains of some dizziness overnight. She denies any worsening of her shortness of breath. Patient was actually able to sleep a little bit better with use of her trilogy device. Cough remains loose. She does inform me that another family member at home was diagnosed with flu yesterday. Exam Vital signs and Labs for Last 24 Hours: Temp Pulse Resp BP Pulse Ox 98.0 F 82 21 156/77 H 99 06/01/19 04:00 06/01/19 06:18 06/01/19 04:00 06/01/19 04:00 06/01/19 06:18 Laboratory Results - last 24 hr 05/31/19 08:32: Sodium 139, Potassium 4.2, Chloride 103, Carbon Dioxide 28, Anion Gap 12.2, BUN 28 H, Creatinine 1.11 H, Estimated Creat Clear 63, Estimated GFR 48 L, Est GFR ( Amer) 59, Glucose 127 H, Calcium 8.0 L I & O for Last 24 hours: Intake & Output 05/29/19 05/30/19 05/31/19 06/01/19 11:59 11:59 11:59 11:59 Intake Total 1373 / 1373 960 / 1200 1080 / 1380 1528 / 1528 Output Total 2900 / 2900 900 / 1200 1300 / 1300 450 / 450 Balance -1527 / -1527 60 / 0 -220 / 80 1078 / 1078 Weight 195 lb 7 oz 193 lb 8 oz 190 lb 9 oz 195 lb 8 oz Narrative: Patient is sitting up in bed. She shows no signs of respiratory distress. Lung exam reveals fair aeration with faint expiratory wheezes. Heart has a regular rate and rhythm. Assessment and Plan (1) MRSA (methicillin resistant Staphylococcus aureus) colonization Current visit: Yes Status: Acute Category: Medical Code(s): Z22.322 - Carrier or suspected carrier of Methicillin resistant Staphylococcus aureus (2) MRSA infection (methicillin-resistant Staphylococcus aureus) Current visit: Yes Status: Acute Category: Medical Code(s): A49.02 - Methicillin resistant Staphylococcus aureus infection, unspecified site (3) Rheumatoid arthritis Current visit: Yes Status: Acute Category: Medical Code(s): M06.9 - Rheumatoid arthritis, unspecified (4) Chronic respiratory failure Current visit: Yes Status: Acute Category: Medical Code(s): J96.10 - Chronic respiratory failure, unspecified whether with hypoxia or hypercapnia (5) Acute exacerbation of chronic obstructive airways disease Current visit: Yes Status: Acute Category: Medical Code(s): J44.1 - Chronic obstructive pulmonary disease with (acute) exacerbation (6) IgG subclass deficiency Current visit: No Status: Acute Category: Medical Code(s): D80.3 - Selective deficiency of immunoglobulin G [IgG] subclasses (7) CAD (coronary artery disease) Current visit: No Status: Chronic Qualifiers: Category: Medical Code(s): I25.10 - Atherosclerotic heart disease of [place] coronary artery without angina pectoris (8) HHD (hypertensive heart disease) Current visit: No Status: Chronic Qualifiers: Category: Medical Code(s): I11.9 - Hypertensive heart disease without heart failure (9) HLD (hyperlipidemia) Current visit: No Status: Chronic Qualifiers: Category: Medical Code(s): E78.5 - Hyperlipidemia, unspecified (10) Effect of immunosuppressant therapy Current visit: Yes Status: Acute Category: Medical Code(s): T45.1X5A - Adverse effect of antineoplastic and immunosuppressive drugs, initial encounter (11) Long-term use of immunosuppressant medication Current visit: Yes Status: Acute Category: Medical Code(s): Z79.899 - Other custodial (current) drug therapy (12) Major depression Current visit: Yes Status: Acute Category: Medical Code(s): F32.9 - Major depressive disorder, single episode, unspecified - Assessment and plan all Dx Assessment and Plan for all problems:: 1. I will start patient on Tamiflu for prophylactic purposes today with anticipated discharge tomorrow
--- NOTE | 2019-06-02 07:30 | Discharge Summary ---
General - General Admission date:: 05/25/19 Discharge date: 06/02/19 HPI HPI: 73-year-old female with long history of COPD and chronic respiratory failure presented to the emergency department with increasing weakness, nausea and shortness of breath. Over the last month patient has had Pseudomonas bronchitis treated with outpatient IV antibiotics and almost immediately after completing treatment for Pseudomonas bronchitis patient developed bronchitis again with subsequent sputum culture growing MRSA. Patient has had multiple MRSA lower respiratory tract infections throughout her life. She was started on oral doxycycline. Patient did not feel like she was responding to doxycycline and was becoming increasingly short of breath with inability to produce sputum and presented to the emergency department. Patient was admitted for treatment of MRSA bronchitis that had failed outpatient treatment. Patient was also felt to have a pneumonia on initial presentation but official reading by the radiologist is chronic changes. This morning patient feels about the same. She is using a trilogy device for her chronic respiratory failure. She endorses significant nausea. She denies fevers or chills at home Hospital Course Hospital Course: Patient was admitted and placed on IV vancomycin for treatment of suspected MRSA pneumonia. Serial chest x-rays did not reveal any pneumonia but patient's spu az was positive for MRSA as an inpatient just as it had been a few days prior to her admission as an outpatient. Patient was kept on IV vancomycin and IV steroids. Over the course of patient's hospitalization she slowly improved as has happened in the past. Was probably 5 days before wheezing improved significantly. Sputum remained loose and purulent for nearly a week. Patient deals with significant anxiety while on high doses of steroids so lorazepam was given to try to improve this. Chest physiotherapy and Mucomyst were used also right sputum clearance. As patient reached the end of her hospitalization it was discovered that multiple family members had contracted influenza B. This delayed discharge by a couple of days and Tamiflu therapy was initiated on the patient as prophylaxis. She will continue this at discharge. On June 02 patient was discharged home to continue vancomycin until June 08 which would complete a 2-week course of IV vancomycin for her MRSA bronchitis. Objective Vital signs: Temp Pulse Resp BP Pulse Ox 98.0 F 98 H 17 137/68 98 06/02/19 04:00 06/02/19 06:11 06/02/19 04:00 06/02/19 04:00 06/02/19 06:10 Narrative: Patient is awake and sitting up in bed. Patient has improved aeration with faint end expiratory wheeze. Heart has a regular rate and rhythm. Extremities have no edema Results Labs on day of discharge: Labs from last 24 hours 06/01/19 22:27 Vancomycin Trough 22.9 H Preliminary micro results at discharge 05/26/19 11:50 Sputum Culture - Preliminary Sputum - Expectorated Sputum Staphylococcus aureus DS: Diagnosis - Discharge Diagnosis (1) MRSA infection (methicillin-resistant Staphylococcus aureus) Status: Acute (2) Rheumatoid arthritis Status: Acute (3) Chronic respiratory failure Status: Acute (4) Acute exacerbation of chronic obstructive airways disease Status: Acute (5) IgG subclass deficiency Status: Acute (6) CAD (coronary artery disease) Status: Chronic (7) HHD (hypertensive heart disease) Status: Chronic (8) HLD (hyperlipidemia) Status: Chronic (9) Effect of immunosuppressant therapy Status: Acute (10) Long-term use of immunosuppressant medication Status: Acute (11) Major depression Status: Acute Discharge Plan - Patient Discharge Instructions ACTIVITY: Continue current activity DIET: continue same diet Patient Instructions: Chronic Obstructive Pulmonary Disease, Methicillin- Resistant Staph Infection, Pneumococcal Vaccine, DI for Chronic Obstructive Pulmonary Disease, DI for Pneumonia -- Adult, DI for Methicillin-Resistant Staph Infection (MRSA) - Follow up Plan Follow up with: Asad Ford MD [Staff Physician] - 1 week Disposition: Home, Self-[facility] Medications: Home Medications Medication Instructions Recorded Confirmed Type Albuterol Sulfate [Albuterol 2.5 mg IH Q6HP PRN 05/24/17 05/25/19 History 0.083% 2.5mg/3mL neb] Albuterol Sulfate [Proair Hfa 2 puffs IH Q4HP PRN 05/24/17 05/25/19 History 90mcg/puff Inh] Aspirin [Aspirin 81mg EC Tab] 81 mg PO DAILY 05/24/17 05/25/19 History Budesonide/Formoterol Fumarate 2 puffs IH BID 05/24/17 05/25/19 History [Symbicort 160-4.5 Mcg Inhaler] Buspirone HCl [Buspar 10mg 10 mg PO BID 05/24/17 05/25/19 History tablet] Cholecalciferol (Vitamin D3) 400 unit PO DAILY 05/24/17 05/25/19 History [Vitamin D3] Ipratropium [place] [Atrovent 0.5 mg IH BIDP PRN 05/24/17 05/25/19 History 0.5mg/2.5mL neb] Mirabegron [Myrbetriq] 50 mg PO HS 05/24/17 05/25/19 History Montelukast Sodium [Montelukast 10 mg PO HS 05/24/17 05/25/19 History 10mg Tab] Pilocarpine HCl [Salagen] 7.5 mg PO TIDP PRN 05/24/17 05/25/19 History Sertraline HCl [Zoloft] 100 mg PO HS 05/24/17 05/25/19 History polyethylene glycoL 3350 [Miralax 17 gm PO DAILYP PRN 05/24/17 05/25/19 History 17gm Packet] Potassium Chloride [Micro-K 10mEq 20 meq PO DAILY 05/21/18 05/25/19 History cap] Trazodone HCl 100 mg PO HS 05/22/18 05/25/19 History Acetylcysteine [Mucomyst 20% 4mL 1 ml INHALATION TIDRT 06/10/18 05/25/19 History vial] Tiotropium [place] [Spiriva 1 puff IH DAILY 09/15/18 05/25/19 History 18mcg/puff inhaler] Hydrocortisone 2.5 mg PO HS 09/16/18 05/25/19 History Hydrocortisone 5 mg PO DAILY 09/16/18 05/25/19 History hydrOXYzine pamoate [Vistaril 25mg 50 mg PO Q6HP PRN #60 cap 10/01/18 05/25/19 Rx capsule] Metoprolol Tartrate [Lopressor 12.5 mg PO BID 10/28/18 05/25/19 History 25mg tablet] Pantoprazole Sodium [Protonix 40mg 40 mg PO BID 10/28/18 05/25/19 History tablet] azithromycin 250 mg tablet 250 mg PO .MON, WED, FRI tab 10/28/18 05/25/19 History bumetanide 2 mg tablet 2 mg PO DAILYP PRN 10/28/18 05/25/19 History Sucralfate [Carafate 1gm Tab] 1 gm PO ACHS 05/25/19 05/25/19 History guaiFENesin [Mucinex] 1,200 mg PO BID 05/25/19 05/25/19 History Acetylcysteine [Mucomyst 20% 4mL 2 ml IH TIDRT #60 vial 06/02/19 Rx vial] LORazepam [Lorazepam 0.5mg Tablet] 0.5 mg PO Q8HP PRN #30 tab 06/02/19 Rx Oseltamivir Phosphate [Tamiflu 75 mg PO DAILY #10 cap 06/02/19 Rx 75mg Capsule] Prescriptions/Medication Reconciliation: New LORazepam [Lorazepam 0.5mg Tablet] 0.5 mg PO Q8HP PRN #30 tab PRN Reason: Anxiety Oseltamivir Phosphate [Tamiflu 75mg Capsule] 75 mg PO DAILY #10 cap Vancomycin HCl [Vancomycin 1000mg Vial] 1,500 mg IV Q24H vial Acetylcysteine [Mucomyst 20% 4mL vial] 2 ml IH TIDRT #60 vial Continued bumetanide 2 mg tablet 2 mg PO DAILYP PRN PRN Reason: DIURETIC azithromycin 250 mg tablet 250 mg PO .MON, WED, FRI tab Montelukast Sodium [Montelukast 10mg Tab] 10 mg PO HS Albuterol Sulfate [Proair Hfa 90mcg/puff Inh] 2 puffs IH Q4HP PRN PRN Reason: Shortness Of Breath Or Wheezing Sertraline HCl [Zoloft] 100 mg PO HS polyethylene glycoL 3350 [Miralax 17gm Packet] 17 gm PO DAILYP PRN PRN Reason: Constipation Mirabegron [Myrbetriq] 50 mg PO HS Ipratropium [place] [Atrovent 0.5mg/2.5mL neb] 0.5 mg IH BIDP PRN PRN Reason: Shortness Of Breath Or Wheezing Buspirone HCl [Buspar 10mg tablet] 10 mg PO BID Budesonide/Formoterol Fumarate [Symbicort 160-4.5 Mcg Inhaler] 2 puffs IH BID Albuterol Sulfate [Albuterol 0.083% 2.5mg/3mL neb] 2.5 mg IH Q6HP PRN PRN Reason: Shortness Of Breath Or Wheezing Potassium Chloride [Micro-K 10mEq cap] 20 meq PO DAILY Trazodone HCl 100 mg PO HS Tiotropium [place] [Spiriva 18mcg/puff inhaler] 1 puff IH DAILY Hydrocortisone 2.5 mg PO HS hydrOXYzine pamoate [Vistaril 25mg capsule] 50 mg PO Q6HP PRN #60 cap PRN Reason: Anxiety Pantoprazole Sodium [Protonix 40mg tablet] 40 mg PO BID Metoprolol Tartrate [Lopressor 25mg tablet] 12.5 mg PO BID Sucralfate [Carafate 1gm Tab] 1 gm PO ACHS Aspirin [Aspirin 81mg EC Tab] 81 mg PO DAILY Pilocarpine HCl [Salagen] 7.5 mg PO TIDP PRN PRN Reason: DRY MOUTH Cholecalciferol (Vitamin D3) [Vitamin D3] 400 unit PO DAILY Acetylcysteine [Mucomyst 20% 4mL vial] 1 ml INHALATION TIDRT Hydrocortisone 5 mg PO DAILY guaiFENesin [Mucinex] 1,200 mg PO BID - Problem Reconciliation Problems Reviewed?: Yes
--- NOTE | 2019-06-02 08:32 | Pharmacy Consult Notes ---
- Pharmacy Consult Date: 06/02/19 Time: 08:31 Referring provider: DR. REID Reason for Consult:: VANCOMYCIN TROUGH LEVEL Allergies and ADEs:: Allergies Allergy/AdvReac Type Severity Reaction Status Date / Time hydrocodone [HYDROCODONE] Allergy Severe dizziness, Verified 05/25/19 22:14 n/v metoclopramide [From REGLAN] Allergy Severe Swelling Verified 05/25/19 22:14 of Lip/Tongue/Throat codeine [CODEINE] Allergy Intermediate dizziness. Verified 05/25/19 22:14 n/v Sulfa (Sulfonamide AdvReac Mild n/v Verified 05/25/19 22:14 Antibiotics) [SULFA (SULFONAMIDE ANTIBIOTICS)] Home Medications:: Home Medications Medication Instructions Recorded Confirmed Type Albuterol Sulfate [Albuterol 2.5 mg IH Q6HP PRN 05/24/17 05/25/19 History 0.083% 2.5mg/3mL neb] Albuterol Sulfate [Proair Hfa 2 puffs IH Q4HP PRN 05/24/17 05/25/19 History 90mcg/puff Inh] Aspirin [Aspirin 81mg EC Tab] 81 mg PO DAILY 05/24/17 05/25/19 History Budesonide/Formoterol Fumarate 2 puffs IH BID 05/24/17 05/25/19 History [Symbicort 160-4.5 Mcg Inhaler] Buspirone HCl [Buspar 10mg 10 mg PO BID 05/24/17 05/25/19 History tablet] Cholecalciferol (Vitamin D3) 400 unit PO DAILY 05/24/17 05/25/19 History [Vitamin D3] Ipratropium [place] [Atrovent 0.5 mg IH BIDP PRN 05/24/17 05/25/19 History 0.5mg/2.5mL neb] Mirabegron [Myrbetriq] 50 mg PO HS 05/24/17 05/25/19 History Montelukast Sodium [Montelukast 10 mg PO HS 05/24/17 05/25/19 History 10mg Tab] Pilocarpine HCl [Salagen] 7.5 mg PO TIDP PRN 05/24/17 05/25/19 History Sertraline HCl [Zoloft] 100 mg PO HS 05/24/17 05/25/19 History polyethylene glycoL 3350 [Miralax 17 gm PO DAILYP PRN 05/24/17 05/25/19 History 17gm Packet] Potassium Chloride [Micro-K 10mEq 20 meq PO DAILY 05/21/18 05/25/19 History cap] Trazodone HCl 100 mg PO HS 05/22/18 05/25/19 History Acetylcysteine [Mucomyst 20% 4mL 1 ml INHALATION TIDRT 06/10/18 05/25/19 History vial] Tiotropium [place] [Spiriva 1 puff IH DAILY 09/15/18 05/25/19 History 18mcg/puff inhaler] Hydrocortisone 2.5 mg PO HS 09/16/18 05/25/19 History Hydrocortisone 5 mg PO DAILY 09/16/18 05/25/19 History hydrOXYzine pamoate [Vistaril 25mg 50 mg PO Q6HP PRN #60 cap 10/01/18 05/25/19 Rx capsule] Metoprolol Tartrate [Lopressor 12.5 mg PO BID 10/28/18 05/25/19 History 25mg tablet] Pantoprazole Sodium [Protonix 40mg 40 mg PO BID 10/28/18 05/25/19 History tablet] azithromycin 250 mg tablet 250 mg PO .MON, WED, FRI tab 10/28/18 05/25/19 History bumetanide 2 mg tablet 2 mg PO DAILYP PRN 10/28/18 05/25/19 History Sucralfate [Carafate 1gm Tab] 1 gm PO ACHS 05/25/19 05/25/19 History guaiFENesin [Mucinex] 1,200 mg PO BID 05/25/19 05/25/19 History Acetylcysteine [Mucomyst 20% 4mL 2 ml IH TIDRT #60 vial 06/02/19 Rx vial] LORazepam [Lorazepam 0.5mg Tablet] 0.5 mg PO Q8HP PRN #30 tab 06/02/19 Rx Oseltamivir Phosphate [Tamiflu 75 mg PO DAILY #10 cap 06/02/19 Rx 75mg Capsule] Vancomycin HCl [Vancomycin 1000mg 1,500 mg IV Q24H vial 06/02/19 Rx Vial] Height: 1.65 m Weight: 88.677 kg Laboratory Results:: Laboratory Results - last 24 hr 06/01/19 22:27: Vancomycin Trough 22.9 H Medical History: Reports:: Anxiety, Congestive Heart Failure, Chronic Obstructive Pulmonary Disease (COPD), Gastroesophageal Reflux Disease(GERD), Hyperlipidemia, Hypertension, MRSA, Myocardial Infarction Denies:: Cancer, Diabetes Mellitus Type 1, Diabetes Mellitus Type 2 Assessment and Plan (1) MRSA infection (methicillin-resistant Staphylococcus aureus) Current visit: Yes Status: Acute Category: Medical Code(s): A49.02 - Methicillin resistant Staphylococcus aureus infection, unspecified site (2) Rheumatoid arthritis Current visit: Yes Status: Acute Category: Medical Code(s): M06.9 - Rheumatoid arthritis, unspecified (3) Chronic respiratory failure Current visit: Yes Status: Acute Category: Medical Code(s): J96.10 - Chronic respiratory failure, unspecified whether with hypoxia or hypercapnia (4) Acute exacerbation of chronic obstructive airways disease Current visit: Yes Status: Acute Category: Medical Code(s): J44.1 - Chronic obstructive pulmonary disease with (acute) exacerbation (5) IgG subclass deficiency Current visit: No Status: Acute Category: Medical Code(s): D80.3 - Selective deficiency of immunoglobulin G [IgG] subclasses (6) CAD (coronary artery disease) Current visit: No Status: Chronic Qualifiers: Category: Medical Code(s): I25.10 - Atherosclerotic heart disease of ruby coronary artery without angina pectoris (7) HHD (hypertensive heart disease) Current visit: No Status: Chronic Qualifiers: Category: Medical Code(s): I11.9 - Hypertensive heart disease without heart failure (8) HLD (hyperlipidemia) Current visit: No Status: Chronic Qualifiers: Category: Medical Code(s): E78.5 - Hyperlipidemia, unspecified (9) Effect of immunosuppressant therapy Current visit: Yes Status: Acute Category: Medical Code(s): T45.1X5A - Adverse effect of antineoplastic and immunosuppressive drugs, initial encounter (10) Long-term use of immunosuppressant medication Current visit: Yes Status: Acute Category: Medical Code(s): Z79.899 - Other chcf (current) drug therapy (11) Major depression Current visit: Yes Status: Acute Category: Medical Code(s): F32.9 - Major depressive disorder, single episode, unspecified - Assessment and plan all Dx Assessment and Plan for all problems:: BASED ON PATIENT FACTORS AND VANCOMYCIN TROUGH LEVEL LAST NIGHT, RECOMMEND CHANGING INTERVAL TO VANCOMYCIN 1500 MG IV Q48H. PATIENT WILL GET A DOSE THIS MORNING AND WILL BE DISCHARGED.
== END 2019-06-02 18:42 | disposition home or self-care (01) ==
LOC: ER 17:33 → 2ND 17:33
PROVIDERS: ADMIT Internal Medicine Adolescent Medicine; ATTEND Family Medicine
CPT/HCPCS: 36415; 71010; 71045; 80048; 80053; 80061; 80202; 81001; 82803; 83605; 83735; 83880; 84100; 84484; 85025; 87040; 87070; 87077; 87186; 87205; 94640; 94667; 94668; 94761; 96375; 99284; G0378; J0692; J2405; J3370

== ENCOUNTER 2019-06-10 11:19 | Outpatient (CLI) | payer MEDICARE, SELFPAY ==
[2019-06-10 11:55] VITALS: BP 117/77; PULSE 95; RESP 20; O2SAT 93
[2019-06-10 12:25] VITALS: BP 118/58; PULSE 90; RESP 20
[2019-06-10 12:55] VITALS: BP 102/55; PULSE 88; RESP 18
[2019-06-10 13:10] VITALS: BP 137/70; PULSE 95; RESP 18
[2019-06-10 13:25] VITALS: BP 120/69; PULSE 93; RESP 20
== END 2019-06-10 14:00 | disposition home or self-care (01) ==
LOC: INF 11:19
PROVIDERS: Visit Provider Family Medicine
DX: Z45.2 Encounter for adjustment and management of vascular access device; D80.3 Selective deficiency of immunoglobulin G [IgG] subclasses
CPT/HCPCS: 96365; J1568; J1642

== ENCOUNTER → 2019-06-22 18:30 | Outpatient (CLI) | payer MEDICARE, SELFPAY | PROVIDERS: Visit Provider Nurse Practitioner | DX: J44.0 Chronic obstructive pulmonary disease with (acute) lower respiratory infection (principal) | CPT/HCPCS: 87070; 87077; 87186; 87205 ==

== ENCOUNTER → 2019-07-12 17:29 | Outpatient (CLI) | payer MEDICARE, SELFPAY | LOC: LAB 17:30 → LAB.DROPOF 07-13 10:11 | PROVIDERS: Visit Provider Family Medicine | DX: J18.9 Pneumonia, unspecified organism (principal); A49.02 Methicillin resistant Staphylococcus aureus infection, unspecified site; Z22.322 Carrier or suspected carrier of Methicillin resistant Staphylococcus aureus | CPT/HCPCS: 87070; 87077; 87186; 87205 ==

== ENCOUNTER 2019-07-12 21:00 | Observation (INO) ==
--- NOTE | 2019-07-12 21:14 | Emergency Department Note ---
ED Disposition Clinical Impression: Acute exacerbation of chronic obstructive airways disease CAP (community acquired pneumonia) Qualifiers: Laterality: left Lung location: lower lobe of lung Qualified Code(s): J18.9 - Pneumonia, unspecified organism Acute and chronic respiratory failure Qualifiers: Respiratory failure complication: hypoxia and hypercapnia Qualified Code(s): J96.21 - Acute and chronic respiratory failure with hypoxia; J96.22 - Acute and chronic respiratory failure with hypercapnia Disposition: Admitted as Observation Condition on Discharge: Good Instructions: DI for Diarrhea and Traveler's Diarrhea -- Adult, DI for Diarrhea and Traveler's Diarrhea -- Child, DI for Nausea -- Adult, DI for Nausea -- Child Referrals: Asad Ford MD [Primary Care Provider] - - Critical Care Critical Care Time: No Attestation: On 07/12/19, the high probability of a clinically significant, sudden or life threatening deterioration of the following system(s) required my full and direct attention, intervention and personal management. The time I documented below is in addition to time spent performing reported procedures but includes the following listed in this critical care notation. Medical Decision Making - Medical Records Medical records reviewed: Yes: I reviewed the patient's medical records. - Julius Inquiry Pt receiving controlled substance: No Vital Signs: 07/12/19 21:01 07/12/19 21:34 07/12/19 22:29 Temperature 99.5 F 101.5 F H Temperature Source Oral Rectal Pulse Rate [Right] 124 H 121 H 113 H Respiratory Rate 22 20 Blood Pressure [Right Arm] 139/71 102/61 L 138/72 Blood Pressure Mean [Right Arm] 93 74 94 02 Sat by Pulse Oximetry 95 95 Oxygen Delivery Method Nasal Cannula Nasal Cannula Oxygen Flow Rate (LPM) 3 3 - Lab Data Lab results reviewed: Yes: I reviewed the patient's lab results. Lab Results 07/12/19 21:11: Influenza Type A Ag Negative, Influenza Type B Ag Negative 07/12/19 21:15: WBC 14.1 H, RBC 3.50 L, Hgb 9.8 L, Hct 31.0 L, MCV 88.7, MCH 28.1, MCHC 31.6 L, RDW 14.1, Plt Count 224, MPV 7.5, Neut % (Auto) 82.7 H, Lymph % (Auto) 11.8, [place] % (Auto) 4.5, Eos % (Auto) 0.8, Baso % (Auto) 0.2, Neut # (Auto) 11.6 H, Lymph # (Auto) 1.7, [place] # (Auto) 0.6, Eos # (Auto) 0.1, Baso # (Auto) 0.0 07/12/19 21:15: Sodium 137, Potassium 3.9, Chloride 98, Carbon Dioxide 33 H, Anion Gap 9.9, BUN 17, Creatinine 1.10 H, Estimated Creat Clear 64, Estimated GFR 49 L, Est GFR ( Amer) 59, Glucose 111 H, Calcium 9.1, Total Bilirubin 0.4, AST 20, ALT 15, Alkaline Phosphatase 56, Troponin I < 0.01, Total Protein 6.7, Albumin 3.9, Globulin 2.8, Albumin/Globulin Ratio 1.4, Amylase 39, Lipase 27 07/12/19 21:15: Lactate 1.0 07/12/19 21:19: Specimen Source R/r, O2 % 3, ABG pH 7.44, ABG pCO2 44.8, ABG pO2 60.0 L, ABG HCO3 30.0 H, ABG Total CO2 31.4 H, ABG O2 Saturation 92, ABG Base Excess 5.9 H, Carlos Test Y 07/12/19 21:31: Urine Color Yellow, Urine Appearance Clear, Urine pH 5.5, Ur Specific [place] >= 1.030, Urine Protein Negative, Urine Glucose (UA) Negative, Urine Ketones Negative, Urine Blood Negative, Urine Nitrate Negative, Urine Bilirubin Negative, Urine Urobilinogen 0.2, Ur Leukocyte Esterase Negative, Urine WBC 3-5, Ur Squamous Epith Cells Occasional, Ur Renal Epithelial Cell 3-5 Result diagrams: 07/12/19 21:15 07/12/19 21:15 Orders (Tests/Meds): ED MEDICATIONS Generic Name Dose Route Start Last Admin Trade Name Freq PRN Reason Stop Dose Admin Sodium Chloride 1,000 mls @ 999 mls/hr 07/12/19 21:15 07/12/19 21:15 Sod Chlor 0.9% 1000ml Bag IV 07/12/19 22:15 999 mls/hr .Q1H1M DARLING Administration Discontinued Medications Generic Name Dose Route Start Last Admin Trade Name Freq PRN Reason Stop Dose Admin Acetaminophen 1,000 mg 07/12/19 21:57 07/12/19 22:26 Tylenol 500mg Tablet PO 07/12/19 21:58 1,000 mg ONCE ONE Administration Ioversol 75 ml 07/12/19 23:12 07/12/19 23:13 Rad-Optiray 350 100ml Vial IV 07/12/19 23:13 75 ml ONCE ONE Administration Protocol Ondansetron HCl 4 mg 07/12/19 21:06 07/12/19 21:15 Zofran 4mg/2ml Vial IV 07/12/19 21:07 4 mg ONCE ONE Administration Promethazine HCl 12.5 mg 07/12/19 21:30 07/12/19 21:32 Phenergan 25mg/Ml 1ml Vial IV 07/12/19 21:31 12.5 mg ONCE ONE Administration Sodium Chloride 25 ml 07/12/19 21:30 07/12/19 21:32 Sod Chlor 0.9% 25ml Bag IV 07/12/19 21:31 25 ml ONCE ONE Administration Sodium Chloride 10 ml 07/12/19 23:12 07/12/19 23:13 Rad-Saline Flush 10ml Syringe IV 07/12/19 23:13 10 ml ONCE ONE Administration ORDERS Category Date Time Status CT abdomen pelvis w con Stat Cat Scan 07/12/19 21:45 Taken Troponin I Q3H Lab 07/13/19 00:15 Ordered Troponin I Q3H Lab 07/13/19 03:15 Ordered Blood Culture Stat Micro 07/12/19 21:15 Received ABG [Arterial Blood Gas] Stat RT 07/12/19 21:12 Ordered ECG Request by /Pedrito Stat Y 07/12/19 21:06 Ordered - Radiology Data #1 Image(s): Chest Image Reviewed: Yes I reviewed the patient's radiology image Preliminary Findings: Abnormal (changes lt base ) - CT Data CT Scan: Abdomen, Pelvis Time Received: 23:[address] Reviewed: Yes: I have viewed the radiologist's interpretation Preliminary Findings: Abnormal (see report ) - ECG Data Tracing #1 Arrhythmias present: sinus tach Ischemic changes: non-specific ST-T wave changes - Physician Consults Physician Consulted: colleen Reason -: Admission Nausea/Vomiting/Diarrhea HPI - General Chief complaint: Nausea/Vomiting/Diarrhea Stated complaint: N/V; SOB Time Seen by Provider: 07/12/19 21:10 Mode of Arrival: EMS Source of Information: Patient, EMS, Medical Record Limitations: No Limitations Description of Symptoms (Recalled from ER Triage Doc. by RN): PATIENT PRESENTS TO TX 4 VIA EMS FROM HOME C/O N/V AND SOB SINCE YESTERDAY. PATIENT HAS A HISTORY OF COPD AND WEARS 2L NC AT HOME. - History of Present Illness HPI Narrative: pt with abd pain which started last pm and vomiting and sob this am - no diarrhea or chest pain MD complaint: vomiting, abdominal pain Onset (ago): day(s) Associated Abdominal Pain: Yes Location of pain: epigastric Severity: moderate Associated symptoms: cough, shortness of breath - Related Data Home Medications Medication Instructions Recorded Confirmed Albuterol Sulfate [Albuterol 2.5 mg IH Q6HP PRN 05/24/17 07/12/19 0.083% 2.5mg/3mL neb] Albuterol Sulfate [Proair Hfa 2 puffs IH Q4HP PRN 05/24/17 07/12/19 90mcg/puff Inh] Aspirin [Aspirin 81mg EC Tab] 81 mg PO DAILY 05/24/17 07/12/19 Budesonide/Formoterol Fumarate 2 puffs IH BID 05/24/17 07/12/19 [Symbicort 160-4.5 Mcg Inhaler] Buspirone HCl [Buspar 10mg 10 mg PO BID 05/24/17 07/12/19 tablet] Cholecalciferol (Vitamin D3) 400 unit PO DAILY 05/24/17 07/12/19 [Vitamin D3] Ipratropium [place] [Atrovent 0.5 mg IH BIDP PRN 05/24/17 07/12/19 0.5mg/2.5mL neb] Mirabegron [Myrbetriq] 50 mg PO HS 05/24/17 07/12/19 Montelukast Sodium [Montelukast 10 mg PO HS 05/24/17 07/12/19 10mg Tab] Pilocarpine HCl [Salagen] 7.5 mg PO TIDP PRN 05/24/17 07/12/19 Sertraline HCl [Zoloft] 100 mg PO HS 05/24/17 07/12/19 polyethylene glycoL 3350 [Miralax 17 gm PO DAILYP PRN 05/24/17 07/12/19 17gm Packet] Potassium Chloride [Micro-K 10mEq 20 meq PO DAILY 05/21/18 07/12/19 cap] Trazodone HCl 100 mg PO HS 05/22/18 07/12/19 Tiotropium [place] [Spiriva 1 puff IH DAILY 09/15/18 07/12/19 18mcg/puff inhaler] Hydrocortisone 2.5 mg PO HS 09/16/18 07/12/19 Hydrocortisone 5 mg PO DAILY 09/16/18 07/12/19 Metoprolol Tartrate [Lopressor 12.5 mg PO BID 10/28/18 07/12/19 25mg tablet] Pantoprazole Sodium [Protonix 40mg 40 mg PO BID 10/28/18 07/12/19 tablet] bumetanide 2 mg tablet 2 mg PO DAILYP PRN 10/28/18 07/12/19 Sucralfate [Carafate 1gm Tab] 1 gm PO ACHS 05/25/19 07/12/19 guaiFENesin [Mucinex] 1,200 mg PO BID 05/25/19 07/12/19 Previous Rx's Medication Instructions Recorded hydrOXYzine pamoate [Vistaril 25mg 50 mg PO Q6HP PRN #60 cap 10/01/18 capsule] LORazepam [Lorazepam 0.5mg Tablet] 0.5 mg PO Q8HP PRN #30 tab 06/02/19 Allergies Allergy/AdvReac Type Severity Reaction Status Date / Time hydrocodone [HYDROCODONE] Allergy Severe dizziness, Verified 05/25/19 22:14 n/v metoclopramide [From REGLAN] Allergy Severe Swelling Verified 05/25/19 22:14 of Lip/Tongue/Throat codeine [CODEINE] Allergy Intermediate dizziness. Verified 05/25/19 22:14 n/v Sulfa (Sulfonamide AdvReac Mild n/v Verified 05/25/19 22:14 Antibiotics) [SULFA (SULFONAMIDE ANTIBIOTICS)] H History - Hepatitis A Screen Drug use history?: No High risk sexual behaviors?: No History of sexually transmitted infection?: No Currently employed?: No Childcare worker?: No Do you have indoor plumbing?: Yes Do you have electricity?: Yes Attestation statement:: This patient has been screened for Hepatitis A risk factors. I have reviewed the patient's past medical history: Yes Medical History: Reports:: Anxiety, Congestive Heart Failure, Chronic Obstructive Pulmonary Disease (COPD), Gastroesophageal Reflux Disease(GERD), Hyperlipidemia, Hypertension, MRSA, Myocardial Infarction Denies:: Cancer, Diabetes Mellitus Type 1, Diabetes Mellitus Type 2 Other Medical History: Reports: Anemia, Arthritis (RA), Cataracts, Hypothyroidism, Sinus Problems, Thyroid Disease Comment: MRSA pneumonia 2013 requiring prolonged hospitalization and intubation, IgG subclass deficiency Laterality Cases: Left: Arthroscopy Hip, Right: Carpal Tunnel Release Other Surgeries: Yes: Cardiac Catheterization, Cholecystectomy, Colonoscopy, Hysterectomy-Total, Tubal Ligation, Other Amputation: No Fractures: Yes - Social History Smoking Status: Unknown if ever smoked Tobacco Type: cigarettes # Packs/Day (cigarettes): 1 #Yrs smoked (if former smoker): 40 Alcohol Intake: never Substance Use Type: denies use Occupational Status: retired Housing: house Household Members: family - Psychiatric History Pschychiatric History:: Reports:: Anxiety Family Hx:: Asthma, Hyperlipidemia, Hypertension, Alcoholism ROS Obtained: Yes All systems reviewed & no additional complaints - Constitutional Constitutional: Denies fever(s) - Eyes Eyes: Denies change in vision - ENT Ears, Nose, Mouth, and Throat: Denies sore throat - Cardiovascular Cardiovascular: Denies chest pain, Reports dyspnea - Respiratory Respiratory: No cough, No non-productive cough - Gastrointestinal Gastrointestingal: Reports: as per HPI, abdominal pain, nausea, vomiting. Denies: diarrhea - Genitourinary Female Genitourinary: Denies hematuria - Musculoskeletal Musculoskeletal: Denies joint pain, Denies joint swelling - Integumentary/Breasts Skin/Breast: Denies rash - Neurologic Neurologic: Denies focal weakness, Denies seizure-like activity Physical Exam - General General appearance: alert, obese - Head Head exam: normocephalic - Eye Eye exam: Present: PERRL, EOMI. Absent: scleral icterus - ENT ENT exam: Present: mucous membranes dry - Neck Neck exam: Present: trachea midline - Respiratory Respiratory exam: Absent: respiratory distress - Cardiovascular Cardiovascular exam: Present: regular rate, systolic murmur, +S4 - Abdominal Exam Abdominal exam: Present: soft, tenderness - Extremities Exam Extremities exam: Absent: calf tenderness - Neurological Exam Neurological exam: Present: alert, CN II-XII intact - Psychiatric Psychiatric exam: Present: normal affect - Skin Skin exam: Absent: rash
[2019-07-12 21:20] LABS: ABG Base Excess 5.9 mmol/L (-2.4-2.3); ABG Oxygen Saturation 92 % (90-100); ABG PCO2 44.8 mmhg (35.0-45.0); ABG PH 7.44 mmol/L (7.35-7.45); ABG TCO2 31.4 mmhg (23-27)
[2019-07-12 21:21] LABS: Allen's Test Y; Oxygen 3 %
[2019-07-12 21:34] LABS: Microscopic, Urine URINE MICROSCOPIC (MICROSCOPIC)
[2019-07-12 21:36] LABS: Appearance,Urine CLEAR (Clear); Bilirubin,Urine Negative (Negative); Blood, Urine Negative (Negative); Color,Urine YELLOW (Yellow); Glucose,Urine (UA) Negative (Negative); Ketones,Urine Negative (Negative); Leukocyte Esterase,Urine Negative (Negative); PH,Urine 5.5 (5.0-8.5); Protein,Urine Negative (Negative); Specific Gravity, Urine >= 1.030 (1.005-1.030); Urobilinogen,Urine 0.2 EU/dl (0.2)
[2019-07-12 21:37] LABS: Alanine Aminotransferase 15 U/L (12-78); Albumin Level 3.9 g/dl (3.5-5.0); Albumin/Globulin Ratio 1.4 (1.1-1.8); Alkaline Phosphatase 56 U/L (38-126); Amylase 39 U/L (30-110); Anion Gap 9.9 mEq/L (5-15); Aspartate Amino Transferase 20 U/L (14-36); Basophils % 0.2 % (0.1-2.0); Bilirubin,Total 0.4 mg/dl (0.2-1.3); Blood Urea Nitrogen 17 mg/dl (7-17); Calcium 9.1 mg/dl (8.4-10.2); Carbon Dioxide 33 mmol/L (22.0-30.0); Chloride 98 mmol/L (98-107); Eosinophils # 0.1 K/mm3 (0.0-0.4); Eosinophils % 0.8 % (0.1-12.0); Globulin 2.8 g/dL (1.3-3.2); Glucose 111 mg/dl (74-100); Hemoglobin 9.8 g/dL (12.2-16.2); Lymphocytes # 1.7 K/mm3 (0.7-4.5); Lymphocytes % 11.8 % (10-50); Mean Corpuscular HGB Conc 31.6 g/dL (31.8-35.4); Mean Corpuscular Volume 88.7 fl (81-99); Mean Platelet Volume 7.5 fl (7.4-10.4); Monocytes # 0.6 K/mm3 (0.1-1.0); Monocytes % 4.5 % (1.7-9.3); Neutrophils # 11.6 K/mm3 (1.8-7.8); Neutrophils % 82.7 % (37.0-80.0); Platelet Count 224 K/mm3 (142-424); Red Cell Distribution Width 14.1 % (11.5-17.5); Sodium 137 mmol/L (136-145); Total Protein,Serum 6.7 g/dl (6.3-8.2); White Blood Count 14.1 K/mm3 (4.8-10.8)
[2019-07-12 21:43] LABS: Squamous Epithelial Cell,Urine Occasional #/hpf (0-5)
[2019-07-13 03:23] LABS: Basophils % 0.1 % (0.1-2.0); Eosinophils % 0.2 % (0.1-12.0); Hemoglobin 9.7 g/dL (12.2-16.2); Lymphocytes # 0.3 K/mm3 (0.7-4.5); Lymphocytes % 2.2 % (10-50); Mean Corpuscular HGB Conc 32.4 g/dL (31.8-35.4); Mean Corpuscular Volume 88.5 fl (81-99); Mean Platelet Volume 7.6 fl (7.4-10.4); Monocytes # 0.2 K/mm3 (0.1-1.0); Monocytes % 1.6 % (1.7-9.3); Neutrophils # 14.1 K/mm3 (1.8-7.8); Neutrophils % 95.9 % (37.0-80.0); Platelet Count 182 K/mm3 (142-424); Red Blood Count 3.37 M/mm3 (4.20-5.40); Red Cell Distribution Width 13.8 % (11.5-17.5); White Blood Count 14.7 K/mm3 (4.8-10.8)
[2019-07-13 03:25] LABS: Hematocrit 29.8 % (37.0-47.0)
[2019-07-13 03:35] LABS: Anion Gap 9.4 mEq/L (5-15); Blood Urea Nitrogen 17 mg/dl (7-17); Calcium 8.5 mg/dl (8.4-10.2); Carbon Dioxide 31 mmol/L (22.0-30.0); Chloride 100 mmol/L (98-107); Glucose 130 mg/dl (74-100); Sodium 136 mmol/L (136-145)
[2019-07-13 03:43] LABS: Lymphocytes % 2 % (10-50); Monocytes % 2 % (2-9); Neutrophils % 90 % (42-76); Rouleaux 1+; Total Cells Counted 100
--- NOTE | 2019-07-13 07:30 | Pharmacy Consult Notes ---
[facility] Pharmacy VTE Monitoring - Patient Demographics Admission date: 07/13/19 Report Date: 07/13/19 Time: 07:30 Allergies/Adverse Reactions: Patient Allergies hydrocodone [HYDROCODONE] Allergy (Severe, Verified 05/25/19 22:14) dizziness, n/v metoclopramide [From REGLAN] Allergy (Severe, Verified 05/25/19 22:14) Swelling of Lip/Tongue/Throat codeine [CODEINE] Allergy (Intermediate, Verified 05/25/19 22:14) dizziness. n/v Sulfa (Sulfonamide Antibiotics) [SULFA (SULFONAMIDE ANTIBIOTICS)] Adverse Reaction (Mild, Verified 05/25/19 22:14) n/v Height: 1.65 m Weight: 90.322 kg Patient Problems: Current Active Problems CAP (community acquired pneumonia) (Acute) Acute and chronic respiratory failure (Acute) Acute exacerbation of chronic obstructive airways disease (Acute) - VTE Risk Labs: VTE Related Lab Results Hgb 9.7 g/dL (12.2-16.2) L 07/13/19 03:15 Hct 29.8 % (37.0-47.0) L 07/13/19 03:15 Plt Count 182 K/mm3 (142-424) 07/13/19 03:15 BUN 17 mg/dl (7-17) 07/13/19 03:15 Creatinine 1.00 mg/dl (0.52-1.04) 07/13/19 03:15 Estimated Creat Clear 74 mL/min (50-200) 07/13/19 03:15 VTE Risk Level: Moderate Risk - Prophylaxis VTE Prophylaxis Ordered?: Yes Types of VTE Prophylaxis: TEDS Knee High Location of Applied Device: Bilateral Lower Extremeties
--- NOTE | 2019-07-13 08:03 | History & Physical Report ---
*Admission Date: 07/12/19 *Chief complaint: Shortness of breath and nausea *History of present illness: 73-year-old female with severe COPD presented to the emergency department with worsening shortness of breath and nausea. Over the last year patient is alternated between lower respiratory tract infections caused by either Pseudomonas or MRSA. Patient had recently been treated with a 10-day course of oral ciprofloxacin for pseudomonal bronchitis. Patient reports that over the last 48 hours her sputum is once again become green and yesterday she became acutely short of breath with nausea and retching. Patient was brought to the emergency department where she has been diagnosed with a left lower lobe pneumonia. Due to her personal history of respiratory infection she has been started on cefepime, Levaquin and vancomycin [facility] History I have reviewed the patient's past medical history: Yes Medical History: Reports:: Anxiety, Congestive Heart Failure, Chronic Obstructive Pulmonary Disease (COPD), Gastroesophageal Reflux Disease(GERD), Hyperlipidemia, Hypertension, Myocardial Infarction Denies:: Cancer, Diabetes Mellitus Type 1, Diabetes Mellitus Type 2, MRSA *Have you ever received a pneumonia vaccine?: Yes *Have you received a flu vaccine this season?: Yes Other Medical History: Reports: Anemia, Arthritis, Cataracts, Hypothyroidism, Sinus Problems, Thyroid Disease Laterality Cases: Left: Arthroscopy Hip, Right: Carpal Tunnel Release Other Surgeries: Yes: Cardiac Catheterization, Cholecystectomy, Colonoscopy, Hysterectomy-Total, Tubal Ligation, Other Amputation: No Fractures: Yes - *Social History Smoking Status: Former smoker Tobacco Type: cigarettes # Packs/Day (cigarettes): 1 #Yrs smoked (if former smoker): 40 Alcohol Intake: never Substance Use Type: denies use *Occupational Status:: retired, disabled Housing: house Household Members: family *Travel in the last 8 weeks: None - Psychiatric History Pschychiatric History:: Reports:: Anxiety Family Hx:: Anemia, Coronary Artery Disease, Heart Attack, Hyperlipidemia, Hypertension, Thyroid Disorder Review of Systems - *Cardiovascular Denies chest pain, Denies chest pain at rest - *Respiratory Reports change in phlegm color, Reports chest congestion, Reports cough, Reports shortness of breath - *Gastrointestinal Denies abdominal pain, Denies belching - *Musculoskeletal Reports joint pain - *Neurologic Denies localized weakness, Denies seizure-like activity Meds Home Medications Medication Instructions Recorded Confirmed Type Albuterol Sulfate [Albuterol 2.5 mg IH Q6HP PRN 05/24/17 07/12/19 History 0.083% 2.5mg/3mL neb] Albuterol Sulfate [Proair Hfa 2 puffs IH Q4HP PRN 05/24/17 07/12/19 History 90mcg/puff Inh] Aspirin [Aspirin 81mg EC Tab] 81 mg PO DAILY 05/24/17 07/12/19 History Budesonide/Formoterol Fumarate 2 puffs IH BID 05/24/17 07/12/19 History [Symbicort 160-4.5 Mcg Inhaler] Buspirone HCl [Buspar 10mg 10 mg PO BID 05/24/17 07/12/19 History tablet] Cholecalciferol (Vitamin D3) 400 unit PO DAILY 05/24/17 07/12/19 History [Vitamin D3] Ipratropium [place] [Atrovent 0.5 mg IH BIDP PRN 05/24/17 07/12/19 History 0.5mg/2.5mL neb] Mirabegron [Myrbetriq] 50 mg PO HS 05/24/17 07/12/19 History Montelukast Sodium [Montelukast 10 mg PO HS 05/24/17 07/12/19 History 10mg Tab] Pilocarpine HCl [Salagen] 7.5 mg PO TIDP PRN 05/24/17 07/12/19 History Sertraline HCl [Zoloft] 100 mg PO HS 05/24/17 07/12/19 History polyethylene glycoL 3350 [Miralax 17 gm PO DAILYP PRN 05/24/17 07/12/19 History 17gm Packet] Potassium Chloride [Micro-K 10mEq 20 meq PO DAILY 05/21/18 07/12/19 History cap] Trazodone HCl 100 mg PO HS 05/22/18 07/12/19 History Tiotropium [place] [Spiriva 1 puff IH DAILY 09/15/18 07/12/19 History 18mcg/puff inhaler] Hydrocortisone 2.5 mg PO HS 09/16/18 07/12/19 History Hydrocortisone 5 mg PO DAILY 09/16/18 07/12/19 History hydrOXYzine pamoate [Vistaril 25mg 50 mg PO Q6HP PRN #60 cap 10/01/18 07/12/19 Rx capsule] Metoprolol Tartrate [Lopressor 12.5 mg PO BID 10/28/18 07/12/19 History 25mg tablet] Pantoprazole Sodium [Protonix 40mg 40 mg PO BID 10/28/18 07/12/19 History tablet] bumetanide 2 mg tablet 2 mg PO DAILYP PRN 10/28/18 07/12/19 History Sucralfate [Carafate 1gm Tab] 1 gm PO ACHS 05/25/19 07/12/19 History guaiFENesin [Mucinex] 1,200 mg PO BID 05/25/19 07/12/19 History LORazepam [Lorazepam 0.5mg Tablet] 0.5 mg PO Q8HP PRN #30 tab 06/02/19 07/12/19 Rx Allergies Allergy/AdvReac Type Severity Reaction Status Date / Time hydrocodone [HYDROCODONE] Allergy Severe dizziness, Verified 05/25/19 22:14 n/v metoclopramide [From REGLAN] Allergy Severe Swelling Verified 05/25/19 22:14 of Lip/Tongue/Throat codeine [CODEINE] Allergy Intermediate dizziness. Verified 05/25/19 22:14 n/v Sulfa (Sulfonamide AdvReac Mild n/v Verified 05/25/19 22:14 Antibiotics) [SULFA (SULFONAMIDE ANTIBIOTICS)] Exam Vital signs and Labs for Last 24 Hours: Temp Pulse Resp BP Pulse Ox 97.4 F L 87 18 133/73 97 07/13/19 04:00 07/13/19 06:32 07/13/19 04:00 07/13/19 04:00 07/13/19 06:32 Laboratory Results - last 24 hr 07/12/19 21:11: Influenza Type A Ag Negative, Influenza Type B Ag Negative 07/12/19 21:15: WBC 14.1 H, RBC 3.50 L, Hgb 9.8 L, Hct 31.0 L, MCV 88.7, MCH 28.1, MCHC 31.6 L, RDW 14.1, Plt Count 224, MPV 7.5, Neut % (Auto) 82.7 H, Lymph % (Auto) 11.8, [place] % (Auto) 4.5, Eos % (Auto) 0.8, Baso % (Auto) 0.2, Neut # (Auto) 11.6 H, Lymph # (Auto) 1.7, [place] # (Auto) 0.6, Eos # (Auto) 0.1, Baso # (Auto) 0.0 07/12/19 21:15: Sodium 137, Potassium 3.9, Chloride 98, Carbon Dioxide 33 H, Anion Gap 9.9, BUN 17, Creatinine 1.10 H, Estimated Creat Clear 64, Estimated GFR 49 L, Est GFR ( Amer) 59, Glucose 111 H, Calcium 9.1, Total Bilirubin 0.4, AST 20, ALT 15, Alkaline Phosphatase 56, Troponin I < 0.01, Total Protein 6.7, Albumin 3.9, Globulin 2.8, Albumin/Globulin Ratio 1.4, Amylase 39, Lipase 27 07/12/19 21:15: Lactate 1.0 07/12/19 21:19: Specimen Source R/r, O2 % 3, ABG pH 7.44, ABG pCO2 44.8, ABG pO2 60.0 L, ABG HCO3 30.0 H, ABG Total CO2 31.4 H, ABG O2 Saturation 92, ABG Base Excess 5.9 H, Carlos Test Y 07/12/19 21:31: Urine Color Yellow, Urine Appearance Clear, Urine pH 5.5, Ur Specific [place] >= 1.030, Urine Protein Negative, Urine Glucose (UA) Negative, Urine Ketones Negative, Urine Blood Negative, Urine Nitrate Negative, Urine Bilirubin Negative, Urine Urobilinogen 0.2, Ur Leukocyte Esterase Negative, U rine WBC 3-5, Ur Squamous Epith Cells Occasional, Ur Renal Epithelial Cell 3-5 07/13/19 00:15: Troponin I < 0.01 07/13/19 03:15: Sodium 136, Potassium 4.4, Chloride 100, Carbon Dioxide 31 H, Anion Gap 9.4, BUN 17, Creatinine 1.00, Estimated Creat Clear 74, Estimated GFR 55 L, Est GFR ( Amer) 66, Glucose 130 H, Calcium 8.5, Magnesium 1.9, Troponin I < 0.01 07/13/19 03:15: WBC 14.7 H, RBC 3.37 L, Hgb 9.7 L, Hct 29.8 L, MCV 88.5, MCH 28.7, MCHC 32.4, RDW 13.8, Plt Count 182, MPV 7.6, Neut % (Auto) 95.9 H, Lymph % (Auto) 2.2 L, [place] % (Auto) 1.6 L, Eos % (Auto) 0.2, Baso % (Auto) 0.1, Neut # (Auto) 14.1 H, Lymph # (Auto) 0.3 L, [place] # (Auto) 0.2, Eos # (Auto) 0.0, Baso # (Auto) 0.0, Total Counted 100, Neutrophils % (Manual) 90 H, Band Neutrophils % 6.0, Lymphocytes % (Manual) 2 L, Monocytes % (Manual) 2, Platelet Estimate Normal, Rouleaux 1+ I & O for Last 24 hours: Intake & Output 07/10/19 07/11/19 07/12/19 07/13/19 11:59 11:59 11:59 11:59 Weight 199 lb 2 oz Narrative: Patient appears comfortable sitting in bed with her nasal cannula in place. HEENT exam is unremarkable. Neck is without lymphadenopathy. Lungs are distant with expiratory wheezes throughout and rales at the left lung base. Heart has a regular rate and rhythm. Abdomen is soft and nontender. Lower extremities have no edema. Neurologically there is no deficit. Assessment and Plan (1) Left lower lobe pneumonia Current visit: Yes Status: Acute Category: Medical Code(s): J18.9 - Pneumonia, unspecified organism (2) Very severe chronic obstructive pulmonary disease Current visit: No Status: Acute Category: Medical Code(s): J44.9 - Chronic obstructive pulmonary disease, unspecified (3) CAD (coronary artery disease) Current visit: No Status: Chronic Qualifiers: Category: Medical Code(s): I25.10 - Atherosclerotic heart disease of [place] coronary artery without angina pectoris (4) HHD (hypertensive heart disease) Current visit: No Status: Chronic Qualifiers: Category: Medical Code(s): I11.9 - Hypertensive heart disease without heart failure - Assessment and plan all Dx Assessment and Plan for all problems:: 1. Continue broad-spectrum antibiotic coverage until cultures are available 2. Home medications
--- NOTE | 2019-07-13 09:41 | Pharmacy Consult Notes ---
- Pharmacy Consult Date: 07/13/19 Time: 09:40 Referring provider: DR. REID Reason for Consult:: VANCOMYCIN DOSING Allergies and ADEs:: Allergies Allergy/AdvReac Type Severity Reaction Status Date / Time hydrocodone [HYDROCODONE] Allergy Severe dizziness, Verified 05/25/19 22:14 n/v metoclopramide [From REGLAN] Allergy Severe Swelling Verified 05/25/19 22:14 of Lip/Tongue/Throat codeine [CODEINE] Allergy Intermediate dizziness. Verified 05/25/19 22:14 n/v Sulfa (Sulfonamide AdvReac Mild n/v Verified 05/25/19 22:14 Antibiotics) [SULFA (SULFONAMIDE ANTIBIOTICS)] Home Medications:: Home Medications Medication Instructions Recorded Confirmed Type Albuterol Sulfate [Albuterol 2.5 mg IH Q6HP PRN 05/24/17 07/12/19 History 0.083% 2.5mg/3mL neb] Albuterol Sulfate [Proair Hfa 2 puffs IH Q4HP PRN 05/24/17 07/12/19 History 90mcg/puff Inh] Aspirin [Aspirin 81mg EC Tab] 81 mg PO DAILY 05/24/17 07/12/19 History Budesonide/Formoterol Fumarate 2 puffs IH BID 05/24/17 07/12/19 History [Symbicort 160-4.5 Mcg Inhaler] Buspirone HCl [Buspar 10mg 10 mg PO BID 05/24/17 07/12/19 History tablet] Cholecalciferol (Vitamin D3) 400 unit PO DAILY 05/24/17 07/12/19 History [Vitamin D3] Ipratropium [place] [Atrovent 0.5 mg IH BIDP PRN 05/24/17 07/12/19 History 0.5mg/2.5mL neb] Mirabegron [Myrbetriq] 50 mg PO HS 05/24/17 07/12/19 History Pilocarpine HCl [Salagen] 7.5 mg PO TIDP PRN 05/24/17 07/12/19 History Sertraline HCl [Zoloft] 100 mg PO HS 05/24/17 07/12/19 History polyethylene glycoL 3350 [Miralax 17 gm PO DAILYP PRN 05/24/17 07/12/19 History 17gm Packet] Potassium Chloride [Micro-K 10mEq 20 meq PO DAILY 05/21/18 07/12/19 History cap] Tiotropium [place] [Spiriva 1 puff IH DAILY 09/15/18 07/12/19 History 18mcg/puff inhaler] Hydrocortisone 2.5 mg PO HS 09/16/18 07/12/19 History Hydrocortisone 5 mg PO DAILY 09/16/18 07/12/19 History hydrOXYzine pamoate [Vistaril 25mg 50 mg PO Q6HP PRN #60 cap 10/01/18 07/12/19 Rx capsule] Metoprolol Tartrate [Lopressor 12.5 mg PO BID 10/28/18 07/12/19 History 25mg tablet] Pantoprazole Sodium [Protonix 40mg 40 mg PO DAILY 10/28/18 07/13/19 History tablet] bumetanide 2 mg tablet 2 mg PO DAILYP PRN 10/28/18 07/12/19 History Sucralfate [Carafate 1gm Tab] 1 gm PO BID 05/25/19 07/13/19 History guaiFENesin [Mucinex] 1,200 mg PO BID 05/25/19 07/12/19 History LORazepam [Lorazepam 0.5mg Tablet] 0.5 mg PO Q8HP PRN #30 tab 06/02/19 07/12/19 Rx Hydroxychloroquine Sulfate 200 mg PO BID 07/13/19 07/13/19 History [Plaquenil] Montelukast Sodium 10 mg PO HS 07/13/19 07/13/19 History Promethazine HCl 12.5 mg PO Q6HP PRN 07/13/19 07/13/19 History Roflumilast [Daliresp] 500 mcg PO DAILY 07/13/19 07/13/19 History Rosuvastatin Calcium 10 mg PO DAILY 07/13/19 07/13/19 History Trazodone HCl 100 mg PO HS 07/13/19 07/13/19 History Height: 1.65 m Weight: 90.322 kg Laboratory Results:: Laboratory Results - last 24 hr 07/12/19 21:11: Influenza Type A Ag Negative, Influenza Type B Ag Negative 07/12/19 21:15: WBC 14.1 H, RBC 3.50 L, Hgb 9.8 L, Hct 31.0 L, MCV 88.7, MCH 28.1, MCHC 31.6 L, RDW 14.1, Plt Count 224, MPV 7.5, Neut % (Auto) 82.7 H, Lymph % (Auto) 11.8, [place] % (Auto) 4.5, Eos % (Auto) 0.8, Baso % (Auto) 0.2, Neut # (Auto) 11.6 H, Lymph # (Auto) 1.7, [place] # (Auto) 0.6, Eos # (Auto) 0.1, Baso # (Auto) 0.0 07/12/19 21:15: Sodium 137, Potassium 3.9, Chloride 98, Carbon Dioxide 33 H, Anion Gap 9.9, BUN 17, Creatinine 1.10 H, Estimated Creat Clear 64, Estimated GFR 49 L, Est GFR ( Amer) 59, Glucose 111 H, Calcium 9.1, Total Bilirubin 0.4, AST 20, ALT 15, Alkaline Phosphatase 56, Troponin I < 0.01, Total Protein 6.7, Albumin 3.9, Globulin 2.8, Albumin/Globulin Ratio 1.4, Amylase 39, Lipase 27 07/12/19 21:15: Lactate 1.0 07/12/19 21:19: Specimen Source R/r, O2 % 3, ABG pH 7.44, ABG pCO2 44.8, ABG pO2 60.0 L, ABG HCO3 30.0 H, ABG Total CO2 31.4 H, ABG O2 Saturation 92, ABG Base Excess 5.9 H, [place] Test Y 07/12/19 21:31: Urine Color Yellow, Urine Appearance Clear, Urine pH 5.5, Ur Specific [place] >= 1.030, Urine Protein Negative, Urine Glucose (UA) Negative, Urine Ketones Negative, Urine Blood Negative, Urine Nitrate Negative, Urine Bilirubin Negative, Urine Urobilinogen 0.2, Ur Leukocyte Esterase Negative, Urine WBC 3-5, Ur Squamous Epith Cells Occasional, Ur Renal Epithelial Cell 3-5 07/13/19 00:15: Troponin I < 0.01 07/13/19 03:15: Sodium 136, Potassium 4.4, Chloride 100, Carbon Dioxide 31 H, Anion Gap 9.4, BUN 17, Creatinine 1.00, Estimated Creat Clear 74, Estimated GFR 55 L, Est GFR ( Amer) 66, Glucose 130 H, Calcium 8.5, Magnesium 1.9, [place] I < 0.01 07/13/19 03:15: WBC 14.7 H, RBC 3.37 L, Hgb 9.7 L, Hct 29.8 L, MCV 88.5, MCH 28.7, MCHC 32.4, RDW 13.8, Plt Count 182, MPV 7.6, Neut % (Auto) 95.9 H, Lymph % (Auto) 2.2 L, [place] % (Auto) 1.6 L, Eos % (Auto) 0.2, Baso % (Auto) 0.1, Neut # (Auto) 14.1 H, Lymph # (Auto) 0.3 L, [place] # (Auto) 0.2, Eos # (Auto) 0.0, Baso # (Auto) 0.0, Total Counted 100, Neutrophils % (Manual) 90 H, Band Neutrophils % 6.0, Lymphocytes % (Manual) 2 L, Monocytes % (Manual) 2, Platelet Estimate Normal, Rouleaux 1+ Medical History: Reports:: Anxiety, Congestive Heart Failure, Chronic Obstructive Pulmonary Disease (COPD), Gastroesophageal Reflux Disease(GERD), Hyperlipidemia, Hypertension, Myocardial Infarction Denies:: Cancer, Diabetes Mellitus Type 1, Diabetes Mellitus Type 2, MRSA Assessment and Plan (1) Left lower lobe pneumonia Current visit: Yes Status: Acute Category: Medical Code(s): J18.9 - Pneumonia, unspecified organism (2) Very severe chronic obstructive pulmonary disease Current visit: No Status: Acute Category: Medical Code(s): J44.9 - Chronic obstructive pulmonary disease, unspecified (3) CAD (coronary artery disease) Current visit: No Status: Chronic Qualifiers: Category: Medical Code(s): I25.10 - Atherosclerotic heart disease of [place] coronary artery without angina pectoris (4) HHD (hypertensive heart disease) Current visit: No Status: Chronic Qualifiers: Category: Medical Code(s): I11.9 - Hypertensive heart disease without heart failure - Assessment and plan all Dx Assessment and Plan for all problems:: BASED ON PATIENT'S FACTORS, RECOMMEND CONTINUING WITH VANCOMYCIN 1500 MG Q24H AT THIS TIME. PHARMACY WILL FOLLOW DAILY AND ADJUST APPROPRIATE.
--- NOTE | 2019-07-14 07:32 | Progress Note ---
Internal Medicine - PN: Subj *Date: 07/14/19 *Time: 07:30 Interval history: Patient complains of jitteriness and anxiety from steroids today were discontinued yesterday evening. She continues have mild shortness of breath that does respond to aerosols. Sputum culture is growing what is likely to be MRSA. Patient continues to have cough that is productive of green sputum. Exam Vital signs and Labs for Last 24 Hours: Temp Pulse Resp BP Pulse Ox 98.4 F 89 18 128/62 94 L 07/14/19 03:55 07/14/19 06:16 07/14/19 03:55 07/14/19 03:55 07/14/19 06:16 I & O for Last 24 hours: Intake & Output 07/11/19 07/12/19 07/13/19 07/14/19 11:59 11:59 11:59 11:59 Intake Total 878 / 878 2924 / 2924 Output Total 1750 / 1750 Balance 877 / 877 1174 / 1174 Weight 199 lb 2 oz 200 lb 9 oz Narrative: Patient does not appear ill and looks comfortable. She is wearing her supplemental oxygen. Lungs have anterior rhonchi bilaterally that clear with cough. Rales in the left lung base less audible today than yesterday. Heart has a regular rate and rhythm Assessment and Plan (1) Left lower lobe pneumonia Current visit: Yes Status: Acute Category: Medical Code(s): J18.9 - Pneumonia, unspecified organism (2) Very severe chronic obstructive pulmonary disease Current visit: No Status: Acute Category: Medical Code(s): J44.9 - Chronic obstructive pulmonary disease, unspecified (3) CAD (coronary artery disease) Current visit: No Status: Chronic Qualifiers: Category: Medical Code(s): I25.10 - Atherosclerotic heart disease of [place] coronary artery without angina pectoris (4) HHD (hypertensive heart disease) Current visit: No Status: Chronic Qualifiers: Category: Medical Code(s): I11.9 - Hypertensive heart disease without heart failure - Assessment and plan all Dx Assessment and Plan for all problems:: Continue broad-spectrum antibiotic coverage while waiting for sputum cultures. Patient will be restarted on her home hydrocortisone. Hold steroids as long as patient is not having significant wheezing.
--- NOTE | 2019-07-15 08:09 | Progress Note ---
Internal Medicine - PN: Subj *Date: 07/15/19 *Time: 08:07 Interval history: Patient is frustrated by persistence of cough. Sputum is intermittently productive still. Shortness of breath is above baseline. Exam Vital signs and Labs for Last 24 Hours: Temp Pulse Resp BP Pulse Ox 97.6 F 96 H 21 126/59 L 96 07/15/19 04:00 07/15/19 06:23 07/15/19 04:00 07/15/19 04:00 07/15/19 04:00 Laboratory Results - last 24 hr 07/14/19 20:45: Vancomycin Trough 12.1 H I & O for Last 24 hours: Intake & Output 07/12/19 07/13/19 07/14/19 07/15/19 11:59 11:59 11:59 11:59 Intake Total 878 / 878 3764 / 3764 2107 / 2107 Output Total 1950 / 1950 400 / 400 Balance 877 / 877 1814 / 1814 1707 / 1707 Weight 199 lb 2 oz 200 lb 9 oz 203 lb Microbiology Reports for the Last 24 Hours: Microbiology 07/13/19 09:09 Sputum - Expectorated Sputum Gram Stain - Final 07/13/19 09:09 Sputum - Expectorated Sputum Sputum Culture - Preliminary 07/12/19 21:15 Blood Blood Culture - Preliminary NO GROWTH AFTER 48 HOURS 07/12/19 21:15 Blood Blood Culture - Preliminary NO GROWTH AFTER 48 HOURS Narrative: Patient looks tired this morning. She has some trouble speaking because of dry mouth. Lungs have crackles in the left base consistent with her pneumonia. Otherwise there is very little wheezing this morning. Heart has a regular rate and rhythm Assessment and Plan (1) MRSA pneumonia Current visit: No Status: Acute Category: Medical Code(s): J15.212 - Pneumonia due to Methicillin resistant Staphylococcus aureus (2) Left lower lobe pneumonia Current visit: Yes Status: Acute Category: Medical Code(s): J18.9 - Pneumonia, unspecified organism (3) Very severe chronic obstructive pulmonary disease Current visit: No Status: Acute Category: Medical Code(s): J44.9 - Chronic obstructive pulmonary disease, unspecified (4) CAD (coronary artery disease) Current visit: No Status: Chronic Qualifiers: Category: Medical Code(s): I25.10 - Atherosclerotic heart disease of [place] coronary artery without angina pectoris (5) HHD (hypertensive heart disease) Current visit: No Status: Chronic Qualifiers: Category: Medical Code(s): I11.9 - Hypertensive heart disease without heart failure (6) IgG subclass deficiency Current visit: No Status: Acute Category: Medical Code(s): D80.3 - Selective deficiency of immunoglobulin G [IgG] subclasses - Assessment and plan all Dx Assessment and Plan for all problems:: 1. Continue IV vancomycin and this will need to be continued for a total of 2 weeks for patient's MRSA pneumonia 2. Anticipate discharge tomorrow if patient remains stable
--- NOTE | 2019-07-15 09:45 | Pharmacy Consult Notes ---
- Pharmacy Consult Date: 07/15/19 Time: 09:43 Referring provider: DR. REID Reason for Consult:: VANCOMYCIN TROUGH LEVEL Allergies and ADEs:: Allergies Allergy/AdvReac Type Severity Reaction Status Date / Time hydrocodone [HYDROCODONE] Allergy Severe dizziness, Verified 05/25/19 22:14 n/v metoclopramide [From REGLAN] Allergy Severe Swelling Verified 05/25/19 22:14 of Lip/Tongue/Throat codeine [CODEINE] Allergy Intermediate dizziness. Verified 05/25/19 22:14 n/v Sulfa (Sulfonamide AdvReac Mild n/v Verified 05/25/19 22:14 Antibiotics) [SULFA (SULFONAMIDE ANTIBIOTICS)] Home Medications:: Home Medications Medication Instructions Recorded Confirmed Type Albuterol Sulfate [Albuterol 2.5 mg IH Q6HP PRN 05/24/17 07/12/19 History 0.083% 2.5mg/3mL neb] Albuterol Sulfate [Proair Hfa 2 puffs IH Q4HP PRN 05/24/17 07/12/19 History 90mcg/puff Inh] Aspirin [Aspirin 81mg EC Tab] 81 mg PO DAILY 05/24/17 07/12/19 History Budesonide/Formoterol Fumarate 2 puffs IH BID 05/24/17 07/12/19 History [Symbicort 160-4.5 Mcg Inhaler] Buspirone HCl [Buspar 10mg 10 mg PO BID 05/24/17 07/12/19 History tablet] Cholecalciferol (Vitamin D3) 400 unit PO DAILY 05/24/17 07/12/19 History [Vitamin D3] Ipratropium [place] [Atrovent 0.5 mg IH BIDP PRN 05/24/17 07/12/19 History 0.5mg/2.5mL neb] Mirabegron [Myrbetriq] 50 mg PO HS 05/24/17 07/12/19 History Pilocarpine HCl [Salagen] 7.5 mg PO TIDP PRN 05/24/17 07/12/19 History Sertraline HCl [Zoloft] 100 mg PO HS 05/24/17 07/12/19 History polyethylene glycoL 3350 [Miralax 17 gm PO DAILYP PRN 05/24/17 07/12/19 History 17gm Packet] Potassium Chloride [Micro-K 10mEq 20 meq PO DAILY 05/21/18 07/12/19 History cap] Tiotropium [place] [Spiriva 1 puff IH DAILY 09/15/18 07/12/19 History 18mcg/puff inhaler] Hydrocortisone 2.5 mg PO HS 09/16/18 07/12/19 History Hydrocortisone 5 mg PO DAILY 09/16/18 07/12/19 History Metoprolol Tartrate [Lopressor 12.5 mg PO BID 10/28/18 07/12/19 History 25mg tablet] Pantoprazole Sodium [Protonix 40mg 40 mg PO DAILY 10/28/18 07/13/19 History tablet] bumetanide 2 mg tablet 2 mg PO DAILYP PRN 10/28/18 07/12/19 History Sucralfate [Carafate 1gm Tab] 1 gm PO BID 05/25/19 07/13/19 History guaiFENesin [Mucinex] 1,200 mg PO BID 05/25/19 07/12/19 History LORazepam [Lorazepam 0.5mg Tablet] 0.5 mg PO Q8HP PRN #30 tab 06/02/19 07/12/19 Rx Hydroxychloroquine Sulfate 200 mg PO BID 07/13/19 07/13/19 History [Plaquenil] Montelukast Sodium 10 mg PO HS 07/13/19 07/13/19 History Promethazine HCl 12.5 mg PO Q6HP PRN 07/13/19 07/13/19 History Roflumilast [Daliresp] 500 mcg PO DAILY 07/13/19 07/13/19 History Rosuvastatin Calcium 10 mg PO DAILY 07/13/19 07/13/19 History Trazodone HCl 100 mg PO HS 07/13/19 07/13/19 History hydrOXYzine pamoate [Vistaril 25mg 25 mg PO Q6HP PRN 07/13/19 07/13/19 History capsule] Height: 1.65 m Weight: 92.079 kg Laboratory Results:: Laboratory Results - last 24 hr 07/14/19 20:45: Vancomycin Trough 12.1 H Medical History: Reports:: Anxiety, Congestive Heart Failure, Chronic Obstructive Pulmonary Disease (COPD), Gastroesophageal Reflux Disease(GERD), Hyperlipidemia, Hypertension, Myocardial Infarction Denies:: Cancer, Diabetes Mellitus Type 1, Diabetes Mellitus Type 2, MRSA Assessment and Plan (1) MRSA pneumonia Current visit: No Status: Acute Category: Medical Code(s): J15.212 - Pneumonia due to Methicillin resistant Staphylococcus aureus (2) Left lower lobe pneumonia Current visit: Yes Status: Acute Category: Medical Code(s): J18.9 - Pne umonia, unspecified organism (3) Very severe chronic obstructive pulmonary disease Current visit: No Status: Acute Category: Medical Code(s): J44.9 - Chronic obstructive pulmonary disease, unspecified (4) CAD (coronary artery disease) Current visit: No Status: Chronic Qualifiers: Category: Medical Code(s): I25.10 - Atherosclerotic heart disease of [place] coronary artery without angina pectoris (5) HHD (hypertensive heart disease) Current visit: No Status: Chronic Qualifiers: Category: Medical Code(s): I11.9 - Hypertensive heart disease without heart failure (6) IgG subclass deficiency Current visit: No Status: Acute Category: Medical Code(s): D80.3 - Selective deficiency of immunoglobulin G [IgG] subclasses - Assessment and plan all Dx Assessment and Plan for all problems:: BASED ON PATIENT FACTORS AND VANCOMYCIN TROUGH OF 12.1, RECOMMEND CONTINUING CURRENT DOSE OF VANCOMYCIN IV (1,500 Q24H). PHARMACY WILL CONTINUE TO MONITOR AND ADJUST DOSE APPROPRIATE. -YASEMIN BHATTI, ODETTED
--- NOTE | 2019-07-15 16:13 | Electrocardiograph Report ---
APPROVED REPORT Exam: Resting ECG HR:123 bpm ECG Measurements Heart Rate 123 AXES NM 152 P 59 QRSd 74 QRS 58 QT 312 T53 QTc 446 <Conclusion> Sinus tachycardia Otherwise normal ECG Electronically signed by : Asad Butcher, 07/15/2019 16:12:49
--- NOTE | 2019-07-16 07:41 | Discharge Summary ---
General - General Admission date:: 07/13/19 Discharge date: 07/16/19 HPI HPI: 73-year-old female with severe COPD presented to the emergency department with worsening shortness of breath and nausea. Over the last year patient is alternated between lower respiratory tract infections caused by either Pseudomonas or MRSA. Patient had recently been treated with a 10-day course of oral ciprofloxacin for pseudomonal bronchitis. Patient reports that over the last 48 hours her sputum is once again become green and yesterday she became acutely short of breath with nausea and retching. Patient was brought to the emergency department where she has been diagnosed with a left lower lobe pneumonia. Due to her personal history of respiratory infection she has been started on cefepime, Levaquin and vancomycin Hospital Course Hospital Course: Patient was admitted and started on broad-spectrum antibiotics to cover both MRSA and Pseudomonas as possible causes of her pneumonia. 2 sputum cultures done the day of admission both grew MRSA. Patient progressed towards improvement each day while hospitalized. On the day of discharge her rales in the left lung base had improved. Patient had loose rhonchi that would clear with cough. She was discharged home and will continue a 2-week course of IV vancomycin Objective Vital signs: Temp Pulse Resp BP Pulse Ox 98.2 F 86 20 112/49 L 97 07/16/19 04:00 07/16/19 06:50 07/16/19 04:00 07/16/19 04:00 07/16/19 06:50 Narrative: Patient is awake, alert, oriented to person, place, time. Lungs have loose rhonchi anteriorly that clear with cough. Fair aeration and no expiratory wheezes. Posteriorly there are faint rales in the left lung base improved from yesterday. Heart has a regular rate and rhythm. The right foot between the third and fourth toe reveals some tinea pedis with breakdown of skin Results Labs on day of discharge: Preliminary micro results at discharge 07/13/19 09:09 Sputum Culture - Preliminary Sputum - Expectorated Sputum Staphylococcus aureus 07/12/19 21:15 Blood Culture - Preliminary Blood NO GROWTH AFTER 48 HOURS 07/12/19 21:15 Blood Culture - Preliminary Blood NO GROWTH AFTER 48 HOURS DS: Diagnosis - Discharge Diagnosis (1) MRSA pneumonia Status: Acute (2) Left lower lobe pneumonia Status: Acute (3) Very severe chronic obstructive pulmonary disease Status: Acute (4) CAD (coronary artery disease) Status: Chronic (5) HHD (hypertensive heart disease) Status: Chronic (6) IgG subclass deficiency Status: Acute Discharge Plan - Patient Discharge Instructions ACTIVITY: Continue current activity DIET: continue same diet Patient Instructions: DI for Chronic Obstructive Pulmonary Disease, DI for Pneumonia -- Adult, Respiratory Failure - Follow up Plan Follow up with: Asad Ford MD [Primary Care Provider] - 07/27/19 Disposition: Home, Self-[facility] Medications: Home Medications Medication Instructions Recorded Confirmed Type Albuterol Sulfate [Albuterol 2.5 mg IH Q6HP PRN 05/24/17 07/12/19 History 0.083% 2.5mg/3mL neb] Albuterol Sulfate [Proair Hfa 2 puffs IH Q4HP PRN 05/24/17 07/12/19 History 90mcg/puff Inh] Aspirin [Aspirin 81mg EC Tab] 81 mg PO DAILY 05/24/17 07/12/19 History Budesonide/Formoterol Fumarate 2 puffs IH BID 05/24/17 07/12/19 History [Symbicort 160-4.5 Mcg Inhaler] Cholecalciferol (Vitamin D3) 400 unit PO DAILY 05/24/17 07/12/19 History [Vitamin D3] Ipratropium [place] [Atrovent 0.5 mg IH BIDP PRN 05/24/17 07/12/19 History 0.5mg/2.5mL neb] Mirabegron [Myrbetriq] 50 mg PO HS 05/24/17 07/12/19 History Pilocarpine HCl [Salagen] 7.5 mg PO TIDP PRN 05/24/17 07/12/19 History Sertraline HCl [Zoloft] 100 mg PO HS 05/24/17 07/12/19 History polyethylene glycoL 3350 [Miralax 17 gm PO DAILYP PRN 05/24/17 07/12/19 History 17gm Packet] Potassium Chloride [Micro-K 10mEq 20 meq PO DAILY 05/21/18 07/12/19 History cap] Tiotropium [place] [Spiriva 1 puff IH DAILY 09/15/18 07/12/19 History 18mcg/puff inhaler] Hydrocortisone 2.5 mg PO HS 09/16/18 07/12/19 History Hydrocortisone 5 mg PO DAILY 09/16/18 07/12/19 History Metoprolol Tartrate [Lopressor 12.5 mg PO BID 10/28/18 07/12/19 History 25mg tablet] Pantoprazole Sodium [Protonix 40mg 40 mg PO DAILY 10/28/18 07/13/19 History tablet] bumetanide 2 mg tablet 2 mg PO DAILYP PRN 10/28/18 07/12/19 History Sucralfate [Carafate 1gm Tab] 1 gm PO BID 05/25/19 07/13/19 History guaiFENesin [Mucinex] 1,200 mg PO BID 05/25/19 07/12/19 History LORazepam [Lorazepam 0.5mg Tablet] 0.5 mg PO Q8HP PRN #30 tab 06/02/19 07/12/19 Rx Hydroxychloroquine Sulfate 200 mg PO BID 07/13/19 07/13/19 History [Plaquenil] Montelukast Sodium 10 mg PO HS 07/13/19 07/13/19 History Promethazine HCl 12.5 mg PO Q6HP PRN 07/13/19 07/13/19 History Roflumilast [Daliresp] 500 mcg PO DAILY 07/13/19 07/13/19 History Rosuvastatin Calcium 10 mg PO DAILY 07/13/19 07/13/19 History Trazodone HCl 100 mg PO HS 07/13/19 07/13/19 History hydrOXYzine pamoate [Vistaril 25mg 25 mg PO Q6HP PRN 07/13/19 07/13/19 History capsule] Acetylcysteine [Acetylcysteine 20% 1 ml PO TID #30 ml 07/16/19 Rx 30mL bottle] Buspirone HCl [Buspar 10mg 10 mg PO BID #60 tab 07/16/19 Rx tablet] Clotrimazole [Antifungal] 30 gm TP BID #30 cream..g. 07/16/19 Rx Prescriptions/Medication Reconciliation: New Vancomycin HCl [Vancomycin 1000mg Vial] 1,500 mg IV Q24H vial Acetylcysteine [Acetylcysteine 20% 30mL bottle] 1 ml PO TID #30 ml Clotrimazole [Antifungal] 30 gm TP BID #30 cream..g. Continued bumetanide 2 mg tablet 2 mg PO DAILYP PRN PRN Reason: DIURETIC Albuterol Sulfate [Proair Hfa 90mcg/puff Inh] 2 puffs IH Q4HP PRN PRN Reason: Shortness Of Breath Or Wheezing Sertraline HCl [Zoloft] 100 mg PO HS polyethylene glycoL 3350 [Miralax 17gm Packet] 17 gm PO DAILYP PRN PRN Reason: Constipation Mirabegron [Myrbetriq] 50 mg PO HS Ipratropium [place] [Atrovent 0.5mg/2.5mL neb] 0.5 mg IH BIDP PRN PRN Reason: Shortness Of Breath Or Wheezing Budesonide/Formoterol Fumarate [Symbicort 160-4.5 Mcg Inhaler] 2 puffs IH BID Albuterol Sulfate [Albuterol 0.083% 2.5mg/3mL neb] 2.5 mg IH Q6HP PRN PRN Reason: Shortness Of Breath Or Wheezing Potassium Chloride [Micro-K 10mEq cap] 20 meq PO DAILY Tiotropium [place] [Spiriva 18mcg/puff inhaler] 1 puff IH DAILY Hydrocortisone 2.5 mg PO HS Pantoprazole Sodium [Protonix 40mg tablet] 40 mg PO DAILY Metoprolol Tartrate [Lopressor 25mg tablet] 12.5 mg PO BID Sucralfate [Carafate 1gm Tab] 1 gm PO BID LORazepam [Lorazepam 0.5mg Tablet] 0.5 mg PO Q8HP PRN #30 tab PRN Reason: Anxiety Montelukast Sodium 10 mg PO HS Trazodone HCl 100 mg PO HS Hydroxychloroquine Sulfate [Plaquenil] 200 mg PO BID Promethazine HCl 12.5 mg PO Q6HP PRN PRN Reason: Nausea Roflumilast [Daliresp] 500 mcg PO DAILY hydrOXYzine pamoate [Vistaril 25mg capsule] 25 mg PO Q6HP PRN PRN Reason: Anxiety Buspirone HCl [Buspar 10mg tablet] 10 mg PO BID #60 tab Aspirin [Aspirin 81mg EC Tab] 81 mg PO DAILY Pilocarpine HCl [Salagen] 7.5 mg PO TIDP PRN PRN Reason: DRY MOUTH Cholecalciferol (Vitamin D3) [Vitamin D3] 400 unit PO DAILY Hydrocortisone 5 mg PO DAILY guaiFENesin [Mucinex] 1,200 mg PO BID Rosuvastatin Calcium 10 mg PO DAILY - Problem Reconciliation Problems Reviewed?: Yes
--- NOTE | 2019-07-16 09:34 | Progress Note ---
Internal Medicine - PN: Subj *Date: 07/16/19 *Time: 09:34 Exam Vital signs and Labs for Last 24 Hours: Temp Pulse Resp BP Pulse Ox 98.3 F 100 H 20 135/50 L 94 L 07/16/19 07:52 07/16/19 07:52 07/16/19 07:52 07/16/19 07:52 07/16/19 07:52 I & O for Last 24 hours: Intake & Output 07/13/19 07/14/19 07/15/19 07/16/19 23:59 23:59 23:59 23:59 Intake Total 2458 / 2458 3641 / 3641 1340 / 1340 Output Total 1101 / 1101 1250 / 1250 200 / 200 Balance 1357 / 1357 2391 / 2391 1140 / 1140 Weight 90 kg 90.974 kg 92.079 kg 93.497 kg Microbiology Reports for the Last 24 Hours: Microbiology 07/13/19 09:09 Sputum - Expectorated Sputum Gram Stain - Final 07/13/19 09:09 Sputum - Expectorated Sputum Sputum Culture - Final Staphylococcus aureus Assessment and Plan (1) MRSA pneumonia Current visit: No Status: Acute Category: Medical Code(s): J15.212 - Pneumonia due to Methicillin resistant Staphylococcus aureus (2) Left lower lobe pneumonia Current visit: Yes Status: Acute Category: Medical Code(s): J18.9 - Pneumonia, unspecified organism (3) Very severe chronic obstructive pulmonary disease Current visit: No Status: Acute Category: Medical Code(s): J44.9 - Chronic obstructive pulmonary disease, unspecified (4) CAD (coronary artery disease) Current visit: No Status: Chronic Qualifiers: Category: Medical Code(s): I25.10 - Atherosclerotic heart disease of [place] coronary artery without angina pectoris (5) HHD (hypertensive heart disease) Current visit: No Status: Chronic Qualifiers: Category: Medical Code(s): I11.9 - Hypertensive heart disease without heart failure (6) IgG subclass deficiency Current visit: No Status: Acute Category: Medical Code(s): D80.3 - Selective deficiency of immunoglobulin G [IgG] subclasses The patient's infection will respond to the chosen ABx?: Yes Is the patient receiving the right drug, dose, and route?: Yes Could a more targeted ABx be ordered?: No (MRSA POSITIVE D/C ON IV VANCOMYCIN.)
[2019-07-16 13:33] LABS: Anion Gap 14.1 mEq/L (5-15); Calcium 8.3 mg/dl (8.4-10.2)
== END 2019-07-16 20:16 | disposition home or self-care (01) ==
LOC: ER 21:00 → 2ND 21:00
PROVIDERS: ADMIT Family Medicine; ATTEND Family Medicine
CPT/HCPCS: 71010; 71045; 74177; 80048; 80053; 80202; 81001; 82150; 82803; 83605; 83690; 83735; 84484; 85007; 85025; 87040; 87070; 87077; 87186; 87205; 87275; 87276; 93005; 94640; 94761; 96365; 96366; 96375; 99285; G0378; J0692; J1956; J2405; J3370; Q9967

== ENCOUNTER → 2019-07-17 17:58 | Outpatient (CLI) | payer MEDICARE, SELFPAY ==
[2019-07-17 19:11] LABS: Vancomycin,Trough 25.1 ug/mL (5.0-10.0)
== END ==
PROVIDERS: Visit Provider Family Medicine
DX: J15.212 Pneumonia due to Methicillin resistant Staphylococcus aureus (principal); J44.9 Chronic obstructive pulmonary disease, unspecified; D80.3 Selective deficiency of immunoglobulin G [IgG] subclasses
CPT/HCPCS: 80202

== ENCOUNTER → 2019-07-24 16:39 | Outpatient (CLI) | payer MEDICARE, SELFPAY ==
[2019-07-24 17:02] LABS: Basophils % 0.2 % (0.1-2.0); Eosinophils % 0.1 % (0.1-12.0); Hematocrit 28.9 % (37.0-47.0); Hemoglobin 9.3 g/dL (12.2-16.2); Lymphocytes # 0.7 K/mm3 (0.7-4.5); Lymphocytes % 7.7 % (10-50); Mean Corpuscular HGB Conc 32.1 g/dL (31.8-35.4); Mean Corpuscular Hemoglobin 28.7 pg (27.0-31.2); Mean Corpuscular Volume 89.4 fl (81-99); Monocytes # 0.2 K/mm3 (0.1-1.0); Monocytes % 1.9 % (1.7-9.3); Neutrophils # 7.9 K/mm3 (1.8-7.8); Platelet Count 335 K/mm3 (142-424); Red Blood Count 3.23 M/mm3 (4.20-5.40); Red Cell Distribution Width 13.7 % (11.5-17.5); White Blood Count 8.7 K/mm3 (4.8-10.8)
[2019-07-24 17:04] LABS: MANUAL DIFFERENTIAL MANUAL DIFFERENTIAL (MANUAL DIFF)
[2019-07-24 17:07] LABS: Alanine Aminotransferase 15 U/L (12-78); Albumin Level 3.7 g/dl (3.5-5.0); Albumin/Globulin Ratio 1.3 (1.1-1.8); Alkaline Phosphatase 75 U/L (38-126); Anion Gap 12.6 mEq/L (5-15); Aspartate Amino Transferase 19 U/L (14-36); Blood Urea Nitrogen 32 mg/dl (7-17); Calcium 8.7 mg/dl (8.4-10.2); Carbon Dioxide 31 mmol/L (22.0-30.0); Chloride 95 mmol/L (98-107); Estimated Glomerular Filt Rate 44 ml/min (>60); GFR (African American) 54 ML/MIN (>60); Globulin 2.9 g/dL (1.3-3.2); Glucose 176 mg/dl (74-100); Potassium 4.6 mmoL/L (3.5-5.1); Sodium 134 mmol/L (136-145); Total Protein,Serum 6.6 g/dl (6.3-8.2)
[2019-07-24 17:10] LABS: Bilirubin,Total < 0.1 mg/dl (0.2-1.3)
[2019-07-24 17:32] LABS: Erythrocyte Sedimentation Rate 97 mm/hr (0-30)
[2019-07-24 17:49] LABS: Lymphocytes % 8 % (10-50); Monocytes % 1 % (2-9); Neutrophils % 91 % (42-76); Platelet Estimate Normal; RBC Morphology Normal; Total Cells Counted 100
== END ==
PROVIDERS: Visit Provider Family Medicine
DX: J18.9 Pneumonia, unspecified organism (principal); A49.02 Methicillin resistant Staphylococcus aureus infection, unspecified site; Z51.81 Encounter for therapeutic drug level monitoring
CPT/HCPCS: 80053; 85007; 85025; 85651; 86140

== ENCOUNTER → 2019-07-27 18:27 | Outpatient (CLI) | payer MEDICARE, SELFPAY | PROVIDERS: Visit Provider Family Medicine | DX: J44.0 Chronic obstructive pulmonary disease with (acute) lower respiratory infection (principal) | CPT/HCPCS: 87070; 87077; 87186; 87205 ==

== ENCOUNTER 2019-09-17 22:26 | Emergency (ER) | payer MEDICARE, SELFPAY ==
[2019-09-17 22:30] VITALS: BP 154/60; PULSE 90; RESP 18; TEMP 38.1; O2SAT 90; BMI 40.7
[2019-09-17 22:32] VITALS: BMI 40.7
--- NOTE | 2019-09-17 22:33 | XR_ITS ---
PROCEDURE: XR CHEST PORTABLE CLINICAL HISTORY: fever COMPARISON: CHESTWO CT chest wo con from 12/18/2018 XR CHEST PORTABLE from 05/25/2019 XR CHEST PORTABLE from 05/26/2019 XR CHEST PORTABLE from 07/12/2019 FINDINGS: There is mild cardiomegaly without failure. MediPort catheter is present from the right subclavian approach with tip in the region the SVC. There is a tubular density overlying the mid and lower chest on the left and may be due to artifact. No lobar consolidation or collapse. There is an old fracture of the right clavicle and there are degenerative changes of the left shoulder IMPRESSION: Cardiomegaly, no acute finding Dictated by: Carlos Starks MD 09/18/2019 05:25 Electronically signed by Carlos Starks MD in [facility] 09/18/2019 05:25
--- NOTE | 2019-09-17 22:39 | ECG_ITS ---
APPROVED REPORT Exam: Resting ECG HR:97 bpm ECG Measurements Heart Rate 97 AXES HI 196 P 83 QRSd 98 QRS 78 QT 342 T 78 QTc 434 <Conclusion> Sinus rhythm with premature atrial complexes with aberrant conduction Nonspecific ST abnormality Abnormal ECG Electronically signed by : Asad Butcher, 09/21/2019 21:04:27
[2019-09-17 22:55] LABS: Strep Scrn Group A (Rapid) Negative (Negative)
--- NOTE | 2019-09-17 23:06 | HMH.EDNVD ---
ED Disposition Clinical Impression: Hip pain, left Nausea & vomiting Qualifiers: Vomiting type: unspecified Vomiting Intractability: unspecified Qualified Code(s): R11.2 - Nausea with vomiting, unspecified Disposition: Home, Self-Care Condition on Discharge: Fair Instructions: DI for Nausea -- Adult Additional Instructions: call pcp in am and see ortho Referrals: Asad Ford MD [Primary Care Provider] - - Critical Care Critical Care Time: No Attestation: On 09/17/19, the high probability of a clinically significant, sudden or life threatening deterioration of the following system(s) required my full and direct attention, intervention and personal management. The time I documented below is in addition to time spent performing reported procedures but includes the following listed in this critical care notation. Medical Decision Making - Medical Records Medical records reviewed: Yes: I reviewed the patient's medical records. - Julius Inquiry Pt receiving controlled substance: No Vital Signs: 09/17/19 22:30 09/17/19 23:29 09/17/19 23:42 Temperature 100.6 F H Temperature Source Oral Pulse Rate 97 H Pulse Rate [Right Brachial] 90 78 Respiratory Rate 18 24 Blood Pressure [Right Arm] 154/60 H 125/64 Blood Pressure Mean [Right Arm] 91 84 Blood Pressure Source [Right Arm] Automatic Cuff Automatic Cuff Blood Pressure Position [Right Arm] Sitting Sitting 02 Sat by Pulse Oximetry 90 L 92 L Oxygen Delivery Method Room Air Nasal Cannula Oxygen Flow Rate (LPM) 4.5 09/18/19 01:00 Temperature Temperature Source Pulse Rate Pulse Rate [Right Brachial] 98 H Respiratory Rate 18 Blood Pressure [Right Arm] 124/53 L Blood Pressure Mean [Right Arm] 76 Blood Pressure Source [Right Arm] Automatic Cuff Blood Pressure Position [Right Arm] Supine 02 Sat by Pulse Oximetry 96 Oxygen Delivery Method Nasal Cannula Oxygen Flow Rate (LPM) 2 - Lab Data Lab results reviewed: Yes: I reviewed the patient's lab results. Lab Results 09/17/19 22:00: WBC 10.2, RBC 3.42 L, Hgb 9.6 L, Hct 29.7 L, MCV 87.0, MCH 28.1, MCHC 32.3, RDW 13.7, Plt Count 226, MPV 7.4, Neut % (Auto) 83.0 H, Lymph % (Auto) 8.8 L, [place] % (Auto) 5.8, Eos % (Auto) 1.7, Baso % (Auto) 0.6, Neut # (Auto) 8.4 H, Lymph # (Auto) 0.9, [place] # (Auto) 0.6, Eos # (Auto) 0.2, Baso # (Auto) 0.1, ESR 70 H 09/17/19 22:00: Troponin I < 0.01, C-Reactive Protein 58.5 H, Amylase < 30 L, Lipase 28 09/17/19 22:00: Lactate 0.8 09/17/19 22:00: NT-Pro-B Natriuret Pep 304 H 09/17/19 22:00: Sodium 136, Potassium 4.5, Chloride 100, Carbon Dioxide 31 H, Anion Gap 9.5, BUN 16, Creatinine 1.30 H, Estimated Creat Clear 70, Estimated GFR 40 L, Est GFR ( Amer) 49 L, Glucose 112 H, Calcium 8.8, Total Bilirubin 0.2, AST 20, ALT 11 L, Alkaline Phosphatase 60, Total Protein 5.9 L, Albumin 3.5, Globulin 2.4, Albumin/Globulin Ratio 1.5 09/17/19 22:40: Group A Strep Rapid Negative 09/17/19 23:04: Specimen Source Right radial, O2 % 2l, ABG pH 7.39, ABG pCO2 43.6, ABG pO2 75.5 L, ABG HCO3 25.9, ABG Total CO2 27.2 H, ABG O2 Saturation 95, ABG Base Excess 0.9, Carlos Test Acceptable Result diagrams: 09/17/19 22:00 09/17/19 22:00 Orders (Tests/Meds): ED MEDICATIONS Generic Name Dose Route Start Last Admin Trade Name Freq PRN Reason Stop Dose Admin Sodium Chloride 3 ml 09/17/19 22:33 Sodium Chloride 3% 15ml Neb 10/17/19 22:32 ONCE PRN INDUCE SPUTUM COLLECTION Discontinued Medications Generic Name Dose Route Start Last Admin Trade Name Freq PRN Reason Stop Dose Admin Albuterol/Ipratropium 3 ml 09/17/19 22:42 09/17/19 23:31 Duoneb 3ml Neb 09/17/19 22:43 3 ml ONCE ONE Administration Ondansetron HCl 4 mg 09/17/19 22:56 09/17/19 23:03 Zofran 4mg/2ml Vial IV 09/17/19 22:57 4 mg ONCE ONE Administration Promethazine HCl 25 mg 09/17/19 23:16 09/17/19 23:34 Phenergan 25mg/Ml 1ml Vial IV 09/17/19 23:17 25 mg ONCE ONE
[2019-09-17 23:08] LABS: ABG Base Excess 0.9 mmol/L (-2.4-2.3); ABG HCO3 25.9 mmhg (22.0-26.0); ABG Oxygen Saturation 95 % (90-100); ABG PCO2 43.6 mmhg (35.0-45.0); ABG PH 7.39 mmol/L (7.35-7.45); ABG PO2 75.5 mmhg (80-100); ABG TCO2 27.2 mmhg (23-27)
[2019-09-17 23:09] LABS: Allen's Test Acceptable; Oxygen 2L %; Source Right Radial
[2019-09-17 23:14] LABS: Basophils # 0.1 K/mm3 (0-0.2); Basophils % 0.6 % (0.1-2.0); Eosinophils # 0.2 K/mm3 (0.0-0.4); Eosinophils % 1.7 % (0.1-12.0); Hematocrit 29.7 % (37.0-47.0); Hemoglobin 9.6 g/dL (12.2-16.2); Lymphocytes # 0.9 K/mm3 (0.7-4.5); Lymphocytes % 8.8 % (10-50); Mean Corpuscular HGB Conc 32.3 g/dL (31.8-35.4); Mean Corpuscular Hemoglobin 28.1 pg (27.0-31.2); Mean Platelet Volume 7.4 fl (7.4-10.4); Monocytes # 0.6 K/mm3 (0.1-1.0); Monocytes % 5.8 % (1.7-9.3); Neutrophils # 8.4 K/mm3 (1.8-7.8); Platelet Count 226 K/mm3 (142-424); Red Blood Count 3.42 M/mm3 (4.20-5.40); Red Cell Distribution Width 13.7 % (11.5-17.5); White Blood Count 10.2 K/mm3 (4.8-10.8)
[2019-09-17 23:22] LABS: Lipase 28 U/L (23-300)
[2019-09-17 23:23] LABS: Lactic Acid 0.8 mmol/L (0.7-2.1)
--- NOTE | 2019-09-17 23:26 | XR_ITS ---
PROCEDURE: XR HIP LT 2-3V W/PELVIS CLINICAL INDICATION: pain Left hip pain COMPARISON: [id number] HIP LT 2-3V W/PELVIS IF PERFOR from 01/22/2016 [id number] HIP LT 2-3V W/PELVIS IF PERFOR from 04/19/2017 FINDINGS: There is an old left femoral neck fracture. The distal fracture fragment appears to have subluxed medially. There has been a prior ORIF of the left hip with a gamma nail and bone sideplate stabilized by 2 screws along the inferior aspect the sideplate. the most superior of these 2 screws is fractured. The bones sideplate is distracted laterally by 9 mm. The inferior screws also distracted laterally. There is an additional superior screw which is not in the bone plate projecting from the base of the greater trochanter superiorly into the femoral head. The screw does not appear significantly changed although the head of the screw is not flush with the bone. There are osteoarthritic changes of both hips in there is injection granulomas noted over the right ilium. IMPRESSION: Status post ORIF of an old left hip fracture. There was malfunction of the hip prosthesis with fracture of 1 of the screws within the prosthesis and lateral displacement of the bony sideplate. The fracture may be ununited Dictated by: Carlos Starks MD 09/18/2019 05:23 Electronically signed by Carlos Starks MD in [facility] 09/18/2019 05:23
[2019-09-17 23:28] LABS: C-Reactive Protein 58.5 mg/L (0-4)
[2019-09-17 23:29] VITALS: PULSE 97; PULSE 99
[2019-09-17 23:29] LABS: Amylase < 30 U/L (30-110)
[2019-09-17 23:34] LABS: NT Pro Brain Natriuretic Pep. 304 pg/mL (0-125)
[2019-09-17 23:42] VITALS: BP 125/64; PULSE 78; RESP 24; O2SAT 92
--- NOTE | 2019-09-17 23:44 | PC.NURSE ---
assisted pt back to rad
[2019-09-17 23:45] LABS: Alanine Aminotransferase 11 U/L (12-78); Albumin Level 3.5 g/dl (3.5-5.0); Albumin/Globulin Ratio 1.5 (1.1-1.8); Alkaline Phosphatase 60 U/L (38-126); Anion Gap 9.5 mEq/L (5-15); Aspartate Amino Transferase 20 U/L (14-36); Bilirubin,Total 0.2 mg/dl (0.2-1.3); Blood Urea Nitrogen 16 mg/dl (7-17); Calcium 8.8 mg/dl (8.4-10.2); Carbon Dioxide 31 mmol/L (22.0-30.0); Chloride 100 mmol/L (98-107); Creatinine Clearance Estimated 70 mL/min (50-200); Estimated Glomerular Filt Rate 40 ml/min (>60); GFR (African American) 49 ML/MIN (>60); Globulin 2.4 g/dL (1.3-3.2); Glucose 112 mg/dl (74-100); Potassium 4.5 mmoL/L (3.5-5.1); Sodium 136 mmol/L (136-145); Total Protein,Serum 5.9 g/dl (6.3-8.2)
[2019-09-17 23:48] LABS: Troponin I < 0.01 ng/ml (0.00-0.034)
[2019-09-17 23:52] LABS: Erythrocyte Sedimentation Rate 70 mm/hr (0-30)
--- NOTE | 2019-09-18 00:01 | CT_ITS ---
PROCEDURE: CT ABDOMEN PELVIS WO CON CLINICAL INDICATION: abd n/v Abdominal pain with nausea and vomiting and diarrhea. COMPARISON: CT ABDOMEN PELVIS W CON from 07/12/2019 TECHNIQUE: Axial images obtained with sagittal and coronal reformats. All CT scans at the facility use one or more dose reduction, viz: automated exposure control, ma/kV adjustment per patient size (including targeted exams where dose is matched to indication, i.e. head), or iterative reconstruction technique. FINDINGS: LOWER THORAX: There are atelectatic changes in the lung bases. Coronary artery calcifications are noted in there is a small hiatal hernia. ABDOMEN & PELVIS: The liver, spleen, adrenal glands, pancreas, and right kidney all have an unremarkable unenhanced appearance. There is an exophytic left renal cyst which measures 3 cm not significantly changed. No renal or ureteral calculi. No hydronephrosis. No intestinal obstruction or free air. Neurostimulator device is present. No evidence of appendicitis. There is diverticulosis of the sigmoid and descending colon but no evidence of diverticulitis. There are post hysterectomy changes. No pelvic mass or abnormal fluid collection is evident. Artifact is present from left hip prosthesis. Gamma nail with bony sideplate is present with fracture of the most superior screw within a bony sideplate. Please see hip report for further discussion. There are degenerative changes in the lumbar spine with mild wedging of L3 not significantly changed IMPRESSION: 1. No acute intra-abdominal or pelvic findings. 2. Colonic diverticulosis. 3. Malfunction of the left hip prosthesis Dictated by: Carlos Starks MD 09/18/2019 06:06 Electronically signed by Carlos Starks MD in [facility] 09/18/2019 06:06
[2019-09-18 01:00] VITALS: BP 124/53; PULSE 98; RESP 18; O2SAT 96
--- NOTE | 2019-09-18 01:11 | PC.NURSE ---
called and spoke to Elizabeth her daughter. gave her an update and advised her that her mother is going to be discharged. she advised she is on her way to get her.
--- NOTE | 2019-09-18 01:40 | PC.NURSE ---
went to get patient up and she advised she is not able to get up and would like to speak to the dr/. dr dillon asked to speak to dr. grover. phone call out to dr. grover at this time.
--- NOTE | 2019-09-18 01:41 | PC.NURSE ---
md on phone with dr. grover at this time
[2019-09-18 02:00] VITALS: BP 136/48; PULSE 99; RESP 16; O2SAT 98
--- NOTE | 2019-09-18 02:09 | PC.NURSE ---
daughter brought into er to speak with md and patient. temp of daughter verified and mask placed. discussed the fact that patients labs and xrays were similar to previous and past. discussed that md had spoken with dr macias twice and that dr macias denied admission to hospital at this time based on tonight's exam. daughter states understanding. discussed following up with [facility] re: issues. xray copied to cd and sent with patient
--- NOTE | 2019-09-18 02:12 | PC.NURSE ---
pt unable to get up to [facility]. md advises call [facility] for transport home.
[2019-09-18 02:13] VITALS: BP 134/48; PULSE 90; RESP 22; TEMP 36.7; O2SAT 95
== END 2019-09-18 02:29 | disposition home or self-care (01) ==
PROVIDERS: Emergency Provider Emergency Medicine; PCP Family Medicine
DX: R11.2 Nausea with vomiting, unspecified (principal); M25.552 Pain in left hip; Z79.899 Other long term (current) drug therapy; I10 Essential (primary) hypertension; J44.9 Chronic obstructive pulmonary disease, unspecified; I25.2 Old myocardial infarction; E03.9 Hypothyroidism, unspecified; K21.9 Gastro-esophageal reflux disease without esophagitis; E78.5 Hyperlipidemia, unspecified; Z87.891 Personal history of nicotine dependence; Z90.79 Acquired absence of other genital organ(s); Z90.49 Acquired absence of other specified parts of digestive tract; Z88.2 Allergy status to sulfonamides; Z88.5 Allergy status to narcotic agent; R06.02 Shortness of breath
CPT/HCPCS: 36415; 71045; 73502; 74176; 80053; 82150; 82803; 83605; 83690; 83880; 84484; 85025; 85651; 86140; 87040; 87430; 93005; 96365; 96374; 96375; 99283; 99284; J1642; J2405

== ENCOUNTER → 2019-10-01 23:37 | Outpatient (CLI) | payer MEDICARE, SELFPAY ==
[2019-10-02 01:05] LABS: Vancomycin,Trough 17.2 ug/mL (5.0-10.0)
== END ==
LOC: LAB 10-02 07:28 → LAB.DROPOF 10-02 07:29
PROVIDERS: PCP Internal Medicine Adolescent Medicine; Visit Provider Internal Medicine Adolescent Medicine
DX: Z51.81 Encounter for therapeutic drug level monitoring (principal)
CPT/HCPCS: 80202

== ENCOUNTER → 2019-10-03 12:11 | Outpatient (CLI) | payer MEDICARE, SELFPAY ==
[2019-10-03 12:14] LABS: Microscopic, Urine URINE MICROSCOPIC (MICROSCOPIC)
[2019-10-03 12:42] LABS: Appearance,Urine CLEAR (Clear); Bilirubin,Urine Negative (Negative); Blood, Urine 2+ (Negative); Color,Urine YELLOW (Yellow); Glucose,Urine (UA) Negative (Negative); Ketones,Urine Negative (Negative); Leukocyte Esterase,Urine TRACE (Negative); Nitrate,Urine Negative (Negative); Protein,Urine 1+ (Negative); Urobilinogen,Urine 0.2 EU/dl (0.2)
[2019-10-03 13:00] LABS: Amorphous Sediment,Urine 1+ /lpf; Bacteria,Urine Trace /lpf; RBC,Urine Occasional #/hpf (0-3)
== END ==
PROVIDERS: Visit Provider Internal Medicine Adolescent Medicine
DX: R30.0 Dysuria (principal); R10.9 Unspecified abdominal pain
CPT/HCPCS: 81001; 87086

== ENCOUNTER → 2019-10-04 13:42 | Outpatient (CLI) | payer MEDICARE, SELFPAY ==
[2019-10-04 13:56] LABS: Basophils % 0.3 % (0.1-2.0); Chloride 105 mmol/L (98-107); Eosinophils # 0.1 K/mm3 (0.0-0.4); Eosinophils % 1.3 % (0.1-12.0); Lymphocytes # 1.3 K/mm3 (0.7-4.5); Lymphocytes % 13.8 % (10-50); Mean Corpuscular HGB Conc 33.9 g/dL (31.8-35.4); Mean Corpuscular Volume 85.5 fl (81-99); Mean Platelet Volume 6.6 fl (7.4-10.4); Monocytes # 0.7 K/mm3 (0.1-1.0); Monocytes % 7.4 % (1.7-9.3); Neutrophils # 7.3 K/mm3 (1.8-7.8); Neutrophils % 77.3 % (37.0-80.0); Platelet Count 304 K/mm3 (142-424); Red Blood Count 2.46 M/mm3 (4.20-5.40); Red Cell Distribution Width 16.1 % (11.5-17.5); Sodium 138 mmol/L (136-145); White Blood Count 9.4 K/mm3 (4.8-10.8)
[2019-10-04 13:58] LABS: Alanine Aminotransferase 17 U/L (12-78); Aspartate Amino Transferase 25 U/L (14-36); Blood Urea Nitrogen 37 mg/dl (7-17); Estimated Glomerular Filt Rate 18 ml/min (>60); GFR (African American) 22 ML/MIN (>60)
[2019-10-04 13:59] LABS: Albumin Level 2.8 g/dl (3.5-5.0); Albumin/Globulin Ratio 1.1 (1.1-1.8); Alkaline Phosphatase 57 U/L (38-126); Anion Gap 11.9 mEq/L (5-15); Bilirubin,Total 0.4 mg/dl (0.2-1.3); Calcium 8.2 mg/dl (8.4-10.2); Carbon Dioxide 24 mmol/L (22.0-30.0); Globulin 2.5 g/dL (1.3-3.2); Glucose 85 mg/dl (74-100); Total Protein,Serum 5.3 g/dl (6.3-8.2)
[2019-10-04 14:04] LABS: Hematocrit 21.1 % (37.0-47.0); Hemoglobin 7.1 g/dL (12.2-16.2); Potassium 2.9 mmoL/L (3.5-5.1)
[2019-10-04 14:08] LABS: NT Pro Brain Natriuretic Pep. 1290 pg/mL (0-125)
== END ==
PROVIDERS: Visit Provider Internal Medicine Adolescent Medicine
DX: Z47.1 Aftercare following joint replacement surgery (principal); R79.89 Other specified abnormal findings of blood chemistry
CPT/HCPCS: 80053; 83880; 85025

== ENCOUNTER → 2019-12-09 14:03 | Outpatient (CLI) | payer MEDICARE, SELFPAY ==
[2019-12-09 14:24] LABS: Basophils % 0.3 % (0.1-2.0); Eosinophils # 0.3 K/mm3 (0.0-0.4); Eosinophils % 3.6 % (0.1-12.0); Lymphocytes # 1.1 K/mm3 (0.7-4.5); Lymphocytes % 11.5 % (10-50); Mean Corpuscular HGB Conc 33.3 g/dL (31.8-35.4); Mean Corpuscular Hemoglobin 30.8 pg (27.0-31.2); Mean Corpuscular Volume 92.6 fl (81-99); Mean Platelet Volume 6.9 fl (7.4-10.4); Monocytes # 0.4 K/mm3 (0.1-1.0); Monocytes % 3.8 % (1.7-9.3); Neutrophils # 7.6 K/mm3 (1.8-7.8); Neutrophils % 80.8 % (37.0-80.0); Platelet Count 269 K/mm3 (142-424); Red Blood Count 2.56 M/mm3 (4.20-5.40); White Blood Count 9.4 K/mm3 (4.8-10.8)
[2019-12-09 14:32] LABS: Hematocrit 23.7 % (37.0-47.0); Hemoglobin 7.9 g/dL (12.2-16.2)
== END ==
PROVIDERS: Visit Provider Family Medicine
DX: J44.1 Chronic obstructive pulmonary disease with (acute) exacerbation (principal); N18.9 Chronic kidney disease, unspecified
CPT/HCPCS: 85025

== ENCOUNTER 2019-12-10 08:47 | Outpatient (CLI) | payer MEDICARE, SELFPAY ==
[2019-12-10] VITALS (21 sets, daily range): BP systolic 119–149; BP diastolic 54–82; PULSE 85–99; RESP 18–22; TEMP 36.7–36.9; O2SAT 97–99; BMI 30.2
--- NOTE | 2019-12-10 14:22 | PC.NURSE ---
1021 Transfusion of 1st unit of blood initiated at this time. R portacath patent with good blood return/flushes easily. Resp unlabored. O2 in use at 2.5 lpm per NC/pt home O2 dependent. Lungs diminished throughout, consistent with patient's baseline, occasional wheeze noted R anterior. Vital signs stable. Educated patient regarding s/s transfusion reaction and what to report to nursing, with patient verbalizing understanding of all instructions. Trace edema noted to LLE/pt reports present since recent L hip replacement. 1051 Patient tolerating blood well with no problems or s/s transfusion reaction noted. Pt up to bedside commode to void. VSS. Denies complaints. 1221 Patient continues to tolerate blood well with no s/s reaction or problems noted. Eating lunch. VSS. Portacath patent. Resp unlabored, lungs consistent with baseline assessment. 1240 Transfusion of 1st unit of blood complete at this time. VSS. Patient denies complaints. Resp unlabored. No s/s transfusion reaction or problems noted.
--- NOTE | 2019-12-10 15:44 | PC.NURSE ---
1315 Transfusion of 2nd unit of blood initiated at this time. VSS. Reviewed s/s of transfusion reaction with patient who verbalizes understanding. Resp easy/reg. Portacath patent. O2 at 2.5lpm per nc as per home dependent O2 orders. Lungs consistent with baseline. 1400 Patient tolerating blood well with no problems noted. VSS. Denies c/o. Up to bedside commode with assistance. Skin warm/dry to touch. Dozing at intervals. No s/s of transfusion reaction noted. 1515 Transfusion of 2nd unit of blood complete. Pt has tolerated well. Denies c/o. Pt has been sleeping at intervals with no distress noted. Resp easy/reg. Lungs consistent with baseline. VSS. Port flushes easily/good blood return. No s/s transfusion reaction. Will obtain 1 hour post transfusion H&H.
[2019-12-10 16:33] LABS: Hematocrit 29.4 % (37.0-47.0); Hemoglobin 9.9 g/dL (12.2-16.2)
== END 2019-12-10 16:25 | disposition home or self-care (01) ==
LOC: INF 08:47
PROVIDERS: PCP Internal Medicine Adolescent Medicine; Visit Provider Family Medicine
DX: D50.8 Other iron deficiency anemias (principal)
CPT/HCPCS: 36430; 85014; 85018; 86850; J1642; P9016

== ENCOUNTER 2019-12-14 11:01 | Outpatient (CLI) | payer MEDICARE, SELFPAY ==
[2019-12-14 11:16] VITALS: BMI 31.9
[2019-12-14 11:27] LABS: Basophils % 0.3 % (0.1-2.0); Eosinophils # 0.3 K/mm3 (0.0-0.4); Eosinophils % 2.7 % (0.1-12.0); Hematocrit 28.7 % (37.0-47.0); Hemoglobin 9.6 g/dL (12.2-16.2); Lymphocytes # 0.9 K/mm3 (0.7-4.5); Lymphocytes % 8.6 % (10-50); Mean Corpuscular HGB Conc 33.2 g/dL (31.8-35.4); Mean Corpuscular Hemoglobin 29.6 pg (27.0-31.2); Monocytes # 0.4 K/mm3 (0.1-1.0); Monocytes % 3.6 % (1.7-9.3); Neutrophils # 8.5 K/mm3 (1.8-7.8); Neutrophils % 84.8 % (37.0-80.0); Platelet Count 230 K/mm3 (142-424); Red Blood Count 3.23 M/mm3 (4.20-5.40); Red Cell Distribution Width 14.8 % (11.5-17.5)
[2019-12-14 11:48] VITALS: BP 158/98; PULSE 99; RESP 18; TEMP 36.5; O2SAT 99
[2019-12-14 13:40] VITALS: BP 109/53; PULSE 105; RESP 18; O2SAT 100
== END 2019-12-14 13:40 | disposition home or self-care (01) ==
LOC: INF 11:01
PROVIDERS: Family Medicine; PCP Internal Medicine Adolescent Medicine; Visit Provider Family Medicine
DX: D50.8 Other iron deficiency anemias (principal); D80.3 Selective deficiency of immunoglobulin G [IgG] subclasses
CPT/HCPCS: 85025; 96365; J1568; J1642

== ENCOUNTER → 2019-12-22 11:42 | Outpatient (CLI) | payer MEDICARE, SELFPAY ==
[2019-12-22 12:17] LABS: Basophils % 0.2 % (0.1-2.0); Eosinophils # 0.2 K/mm3 (0.0-0.4); Eosinophils % 2.5 % (0.1-12.0); Hematocrit 29.5 % (37.0-47.0); Lymphocytes # 0.9 K/mm3 (0.7-4.5); Lymphocytes % 11.9 % (10-50); Mean Corpuscular HGB Conc 33.9 g/dL (31.8-35.4); Mean Corpuscular Hemoglobin 30.4 pg (27.0-31.2); Mean Corpuscular Volume 89.4 fl (81-99); Mean Platelet Volume 6.8 fl (7.4-10.4); Monocytes # 0.3 K/mm3 (0.1-1.0); Monocytes % 3.8 % (1.7-9.3); Neutrophils # 6.1 K/mm3 (1.8-7.8); Neutrophils % 81.5 % (37.0-80.0); Platelet Count 217 K/mm3 (142-424); Red Cell Distribution Width 14.3 % (11.5-17.5); White Blood Count 7.4 K/mm3 (4.8-10.8)
[2019-12-22 13:23] LABS: Albumin Level 3.6 g/dl (3.5-5.0); Anion Gap 17.5 mEq/L (5-15); Blood Urea Nitrogen 19 mg/dl (7-17); Calcium 9.2 mg/dl (8.4-10.2); Carbon Dioxide 25 mmol/L (22.0-30.0); Chloride 100 mmol/L (98-107); Estimated Glomerular Filt Rate 34 ml/min (>60); GFR (African American) 41 ML/MIN (>60); Glucose 96 mg/dl (74-100); Phosphorous 4.9 mg/dl (2.5-4.5); Potassium 4.5 mmoL/L (3.5-5.1); Sodium 138 mmol/L (136-145)
[2019-12-22 13:36] LABS: Intact Parathyroid Hormone 48.9 pg/mL (7.5-53.5)
[2019-12-22 13:41] LABS: 25-OH Vitamin D, Total 27.7 ng/mL (30-100)
[2019-12-23 15:15] LABS: Microscopic, Urine URINE MICROSCOPIC (MICROSCOPIC)
[2019-12-23 16:04] LABS: Appearance,Urine CLEAR (Clear); Bilirubin,Urine Negative (Negative); Blood, Urine Negative (Negative); Color,Urine YELLOW (Yellow); Glucose,Urine (UA) Negative (Negative); Ketones,Urine Negative (Negative); Leukocyte Esterase,Urine Negative (Negative); Nitrate,Urine Negative (Negative); PH,Urine 5.5 (5.0-8.5); Protein,Urine Negative (Negative); Specific Gravity, Urine >= 1.030 (1.005-1.030); Urobilinogen,Urine 0.2 EU/dl (0.2)
[2019-12-23 16:18] LABS: Creatinine,Urine Random 94 mg/dL (Not Estab.)
[2019-12-23 19:47] LABS: Bacteria,Urine Trace /lpf; Squamous Epithelial Cell,Urine Occasional #/hpf (0-5); WBC,Urine Occasional #/hpf (0-3)
== END ==
PROVIDERS: Visit Provider Internal Medicine Nephrology
DX: N17.9 Acute kidney failure, unspecified (principal); E55.9 Vitamin D deficiency, unspecified
CPT/HCPCS: 36415; 80069; 81001; 82306; 82570; 83970; 84155; 85025

== ENCOUNTER 2020-01-14 11:19 | Outpatient (CLI) | payer MEDICARE, SELFPAY ==
[2020-01-14 11:15] VITALS: BP 146/62; PULSE 106; RESP 22; TEMP 36.9; O2SAT 98
[2020-01-14 11:46] VITALS: BP 141/69; PULSE 99; RESP 22; O2SAT 97
[2020-01-14 12:16] VITALS: BP 125/58; PULSE 94; RESP 20; O2SAT 98
[2020-01-14 12:46] VITALS: BP 130/51; PULSE 97; RESP 20; O2SAT 97
[2020-01-14 13:16] VITALS: BP 124/62; PULSE 96; RESP 20; O2SAT 98
[2020-01-14 13:40] VITALS: BP 127/69; PULSE 92; RESP 20; O2SAT 98; BMI 33.1
[2020-01-14 14:17] LABS: Basophils % 0.3 % (0.1-2.0); Eosinophils # 0.2 K/mm3 (0.0-0.4); Eosinophils % 1.8 % (0.1-12.0); Hematocrit 26.1 % (37.0-47.0); Hemoglobin 8.6 g/dL (12.2-16.2); Lymphocytes # 0.9 K/mm3 (0.7-4.5); Lymphocytes % 11.1 % (10-50); Mean Corpuscular Hemoglobin 29.8 pg (27.0-31.2); Mean Corpuscular Volume 90.3 fl (81-99); Mean Platelet Volume 7.3 fl (7.4-10.4); Monocytes # 0.2 K/mm3 (0.1-1.0); Monocytes % 2.1 % (1.7-9.3); Neutrophils % 84.6 % (37.0-80.0); Platelet Count 202 K/mm3 (142-424); Red Blood Count 2.89 M/mm3 (4.20-5.40); Red Cell Distribution Width 14.4 % (11.5-17.5); White Blood Count 8.3 K/mm3 (4.8-10.8)
== END 2020-01-14 13:40 | disposition home or self-care (01) ==
LOC: INF 11:19
PROVIDERS: Family Medicine; Visit Provider Internal Medicine Critical Care Medicine
DX: D50.8 Other iron deficiency anemias (principal); D80.3 Selective deficiency of immunoglobulin G [IgG] subclasses
CPT/HCPCS: 85025; 96365; 96366; J1459; J1642

== ENCOUNTER → 2020-01-19 09:45 | Outpatient (CLI) | payer MEDICARE, SELFPAY ==
--- NOTE | 2020-01-19 10:42 | CA_ITS ---
APPROVED REPORT Right Upper Extremity Venous Study for DVT. [employer] Sales Supervisor: Lula Mccoy [facility] Indications DVT of Upper Extremity: Right KNOWN THROMBUS RIGHT JUGULAR OCTOBER 2019 FOLLOWUP EXAM FOR REEVALUATION Vein Imaging IJV (R): Normal phasic flow is seen. Normal flow, augmentation and compression is seen. No evidence of Deep Vein Thrombosis. No abnormalities are demonstrated. Findings Imaging reveals a widely patent Internal Jugular Vein ON THE RIGHT Conclusion Imaging reveals a widely patent Internal Jugular Vein ON RIGHT Electronically signed by : Carlos Starks MD 01/19/2020 16:23:59
== END ==
PROVIDERS: PCP Family Medicine; Visit Provider Nurse Practitioner
DX: I82.890 Acute embolism and thrombosis of other specified veins (principal); M79.601 Pain in right arm
CPT/HCPCS: 93971

== ENCOUNTER → 2020-02-17 16:31 | Outpatient (CLI) | payer MEDICARE, SELFPAY ==
--- NOTE | 2020-02-17 | XR_ITS ---
PROCEDURE: XR CHEST PORTABLE CLINICAL HISTORY: COVID OUTPATIENT COMPARISON: CT CHESTWO CT chest wo con from 12/18/2018 CR XR CHEST PORTABLE from 05/26/2019 CR XR CHEST PORTABLE from 07/12/2019 CR XR CHEST PORTABLE from 09/17/2019 FINDINGS: The cardiomediastinal silhouette and pulmonary vascularity are within normal limits. Right subclavian MediPort catheter is present. The tip is in the region the SVC. Patchy density is present in the left lower lobe may be due to an area of atelectasis or infiltrate. There is a calcified granuloma in the left lung base. Degenerative changes are present in the shoulders. IMPRESSION: Patchy density in the left mid lower lung zone suspicious for ground-glass attenuation. Consider atypical pneumonia, viral pneumonia/Covid 19 pneumonia Dictated by: Carlos Starks MD 02/17/2020 18:55 Carlos Starks MD in [place] 02/17/2020 18:55
== END ==
PROVIDERS: PCP Family Medicine; Visit Provider Nurse Practitioner
DX: Z03.818 Encounter for observation for suspected exposure to other biological agents ruled out (principal)
CPT/HCPCS: 71045; U0003

== ENCOUNTER 2020-02-20 12:53 | Outpatient (CLI) | payer MEDICARE, SELFPAY ==
[2020-02-20] VITALS (22 sets, daily range): BP systolic 120–137; BP diastolic 58–74; PULSE 88–101; RESP 14–18; TEMP 36.7–37.1; O2SAT 96–100; BMI 31.1
[2020-02-20 20:38] LABS: Hematocrit 26.8 % (37.0-47.0); Hemoglobin 9.1 g/dL (12.2-16.2)
--- NOTE | 2020-02-20 20:57 | PC.NURSE ---
RIGHT CHEST PORT DEACCESED AND HEPARIN FLUSHED. NO ISSUES NOTED. PT'S DAUGHTER PICKED HER UP AT DISCHARGE
== END 2020-02-20 20:58 | disposition home or self-care (01) ==
LOC: INF 13:00
PROVIDERS: PCP Family Medicine; Visit Provider Nurse Practitioner
DX: D64.9 Anemia, unspecified (principal)
CPT/HCPCS: 36430; 85014; 85018; 86850; J1642; P9016

== ENCOUNTER 2020-03-03 23:30 | Emergency (ER) | payer MEDICARE, SELFPAY ==
[2020-03-03 23:32] VITALS: BP 127/60; PULSE 108; RESP 16; TEMP 37.8; O2SAT 97; BMI 31.1
[2020-03-04 00:49] LABS: Alanine Aminotransferase 7 U/L (12-78); Albumin Level 3.3 g/dl (3.5-5.0); Alkaline Phosphatase 78 U/L (38-126); Amylase 36 U/L (30-110); Anion Gap 11.8 mEq/L (5-15); Aspartate Amino Transferase 17 U/L (14-36); Bilirubin,Total 0.7 mg/dl (0.2-1.3); Blood Urea Nitrogen 13 mg/dl (7-17); Calcium 8.6 mg/dl (8.4-10.2); Carbon Dioxide 31 mmol/L (22.0-30.0); Chloride 94 mmol/L (98-107); Creatinine Clearance Estimated 49 mL/min (50-200); Estimated Glomerular Filt Rate 37 ml/min (>60); GFR (African American) 45 ML/MIN (>60); Globulin 3.3 g/dL (1.3-3.2); Glucose 110 mg/dl (74-100); Lipase 25 U/L (23-300); Potassium 3.8 mmoL/L (3.5-5.1); Sodium 133 mmol/L (136-145); Total Protein,Serum 6.6 g/dl (6.3-8.2)
--- NOTE | 2020-03-04 00:53 | HMH.EDNVD ---
ED Disposition Clinical Impression: Elevated erythrocyte sedimentation rate, Elevated C-reactive protein (CRP) Abdominal pain Qualifiers: Abdominal location: epigastric Qualified Code(s): R10.13 - Epigastric pain COPD (chronic obstructive pulmonary disease) Qualifiers: COPD type: unspecified COPD Qualified Code(s): J44.9 - Chronic obstructive pulmonary disease, unspecified Anemia Qualifiers: Anemia type: unspecified type Qualified Code(s): D64.9 - Anemia, unspecified Disposition: Home, Self-Care Condition on Discharge: Fair Instructions: DI for Acute Abdomen Additional Instructions: fluids and call pcp this am Referrals: Asad Ford MD [Primary Care Provider] - - Critical Care Critical Care Time: No Attestation: On 03/03/20, the high probability of a clinically significant, sudden or life threatening deterioration of the following system(s) required my full and direct attention, intervention and personal management. The time I documented below is in addition to time spent performing reported procedures but includes the following listed in this critical care notation. Medical Decision Making - Medical Records Medical records reviewed: Yes: I reviewed the patient's medical records. - Julius Inquiry Pt receiving controlled substance: No Vital Signs: 03/03/20 23:32 03/04/20 01:00 03/04/20 02:00 Temperature 100.0 F H Temperature Source Oral Pulse Rate [Left Radial] 108 H 97 H 93 H Respiratory Rate 16 16 16 Blood Pressure [Right Arm] 127/60 107/40 L 121/57 L Blood Pressure Mean [Right Arm] 82 62 78 Blood Pressure Source [Right Arm] Automatic Cuff Automatic Cuff Automatic Cuff Blood Pressure Position [Right Arm] Sitting Sitting 02 Sat by Pulse Oximetry 97 100 96 Oxygen Delivery Method Room Air Nasal Cannula Oxygen Flow Rate (LPM) 2 03/04/20 02:34 03/04/20 03:11 Temperature 98.6 F Temperature Source Oral Pulse Rate [Left Radial] 92 H 92 H Respiratory Rate 15 16 Blood Pressure [Right Arm] 142/57 H 132/59 L Blood Pressure Mean [Right Arm] 85 83 Blood Pressure Source [Right Arm] Automatic Cuff Automatic Cuff Blood Pressure Position [Right Arm] Sitting Sitting 02 Sat by Pulse Oximetry 97 98 Oxygen Delivery Method Nasal Cannula Room Air Oxygen Flow Rate (LPM) 2 - Lab Data Lab results reviewed: Yes: I reviewed the patient's lab results. Lab Results 03/04/20 00:28: WBC 10.7, RBC 3.39 L, Hgb 9.6 L, Hct 28.5 L, MCV 84.0, MCH 28.3, MCHC 33.7, RDW 15.0, Plt Count 263, MPV 6.9 L, Neut % (Auto) 76.8, Lymph % (Auto) 6.9 L, [place] % (Auto) 11.4 H, Eos % (Auto) 4.5, Baso % (Auto) 0.5, Neut # (Auto) 8.2 H, Lymph # (Auto) 0.7, [place] # (Auto) 1.2 H, Eos # (Auto) 0.5 H, Baso # (Auto) 0.1, ESR > 140 H 03/04/20 00:28: Sodium 133 L, Potassium 3.8, Chloride 94 L, Carbon Dioxide 31 H, Anion Gap 11.8, BUN 13, Creatinine 1.40 H, Estimated Creat Clear 49, Estimated GFR 37 L, Est GFR ( Amer) 45 L, Glucose 110 H, Calcium 8.6, Total Bilirubin 0.7, AST 17, ALT 7 L, Alkaline Phosphatase 78, C-Reactive Protein 141.1 H, Total Protein 6.6, Albumin 3.3 L, Globulin 3.3 H, Albumin/Globulin Ratio 1.0 L, Amylase 36, Lipase 25 03/04/20 00:28: Lactate < 0.5 L 03/04/20 00:28: SARS-CoV-2 IgG Ab (Rapid) Negative, SARS-CoV-2 IgM Ab (Rapid) Negative 03/04/20 02:51: Urine Color Dk yellow, Urine Appearance Clear, Urine pH 6.0, Ur Specific [place] 1.020, Urine Protein Negative, Urine Glucose (UA) Negative, Urine Ketones Negative, Urine Blood Negative, Urine Nitrate Negative, Urine Bilirubin Negative, Urine Urobilinogen 0.2, Ur Leukocyte Esterase 1+ A, Urine WBC 5-10, Ur Squamous Epith Cells 3-5, Urine Bacteria 1+ Result diagrams: 03/04/20 00:28 03/04/20 00:28 Orders (Tests/Meds): ED MEDICATIONS Generic Name Dose Route Start Last Admin Trade Name Freq PRN Reason Stop Dose Admin Sodium Chloride 1,000 mls @ 999 mls/hr 03/03/20 23:45 03/04/20 00:27 Sod Chlor 0.9% 1000ml Bag IV 03/04/20 00:45 999 mls/hr .Q1H1M [facility]
[2020-03-04 00:54] LABS: C-Reactive Protein 141.1 mg/L (0-4)
[2020-03-04 00:56] LABS: Lactic Acid < 0.5 mmol/L (0.7-2.1)
[2020-03-04 00:57] LABS: Basophils # 0.1 K/mm3 (0-0.2); Basophils % 0.5 % (0.1-2.0); Eosinophils # 0.5 K/mm3 (0.0-0.4); Eosinophils % 4.5 % (0.1-12.0); Hematocrit 28.5 % (37.0-47.0); Hemoglobin 9.6 g/dL (12.2-16.2); Lymphocytes # 0.7 K/mm3 (0.7-4.5); Lymphocytes % 6.9 % (10-50); Mean Corpuscular HGB Conc 33.7 g/dL (31.8-35.4); Mean Corpuscular Hemoglobin 28.3 pg (27.0-31.2); Mean Platelet Volume 6.9 fl (7.4-10.4); Monocytes # 1.2 K/mm3 (0.1-1.0); Monocytes % 11.4 % (1.7-9.3); Neutrophils # 8.2 K/mm3 (1.8-7.8); Neutrophils % 76.8 % (37.0-80.0); Platelet Count 263 K/mm3 (142-424); Red Blood Count 3.39 M/mm3 (4.20-5.40); White Blood Count 10.7 K/mm3 (4.8-10.8)
[2020-03-04 01:00] VITALS: BP 107/40; PULSE 97; RESP 16; O2SAT 100
--- NOTE | 2020-03-04 01:07 | CT_ITS ---
PROCEDURE: CT ABDOMEN PELVIS WO CON CLINICAL INDICATION: epigastric pain Epigastric pain with nausea COMPARISON: CT CT ABDOMEN PELVIS WO CON from 09/18/2019 TECHNIQUE: Axial images obtained with sagittal and coronal reformats. All CT scans at the facility use one or more dose reduction, viz: automated exposure control, ma/kV adjustment per patient size (including targeted exams where dose is matched to indication, i.e. head), or iterative reconstruction technique. FINDINGS: LOWER THORAX: There is coarsening of the interstitial markings. Parenchymal opacity is present in the right lung base laterally and may be due to an area of scarring. There is a 3 mm noncalcified nodule in the right middle lobe, 4 mm noncalcified nodule right lower lobe, patchy density in the left lung base laterally which may be due to an area of scarring. ABDOMEN & PELVIS: The liver, spleen, adrenal glands, and pancreas have an unremarkable appearance. There is a 2.3 cm left renal cyst. No renal or ureteral calculi. No hydronephrosis. Artifact is present from a neurostimulator device in the right lower quadrant. There is a small umbilical hernia containing fat. No intestinal obstruction or free air. Artifact is present from left hip prosthesis. There is colonic diverticulosis but no evidence of diverticulitis. Status post hysterectomy. No evidence of appendicitis. There is diffuse vascular calcification. Degenerative changes are present in the lumbar spine with levoscoliosis. There is an old left inferior pubic ramus fracture. Injection granulomas are present in the buttock region on both sides IMPRESSION: 1. As above, no acute finding. 2. Mild prominence of the interstitium in the lung bases with 2 noncalcified nodules on the right 3 and 4 mm. Consider six-month follow-up. Dictated by: Carlos Starks MD 03/04/2020 06:06 Carlos Starks MD in [facility] 03/04/2020 06:06
[2020-03-04 01:17] LABS: Coronavirus 19 IgG Antibody Negative (Negative); Coronavirus 19 IgM Antibody Negative (Negative)
[2020-03-04 01:51] LABS: Erythrocyte Sedimentation Rate > 140 mm/hr (0-30)
--- NOTE | 2020-03-04 01:54 | XR_ITS ---
PROCEDURE: XR CHEST 2V CLINICAL HISTORY: ground glass on CT Abnormal CT scan COMPARISON: CT CHESTWO CT chest wo con from 12/18/2018 CR XR CHEST PORTABLE from 07/12/2019 CR XR CHEST PORTABLE from 09/17/2019 CR XR CHEST PORTABLE from 02/17/[address] ABDOMEN PELVIS WO CON from 03/04/2020 FINDINGS: The cardiomediastinal silhouette and pulmonary vascularity are within normal limits. Right subclavian MediPort catheter is present. The tip is in the region the SVC. There is mild coarsening of the bronchovascular markings which may be seen with chronic bronchitis. Pericardial fat pad noted on the right. Nonspecific patchy areas of increased density are present in the CP angles on both sides and may be due to atelectatic changes. Degenerative changes thoracic spine IMPRESSION: Nonspecific coarsening of the bronchovascular markings. Minimal increased density in the CP angles on both sides and may be due to atelectatic changes scarring or subpleural infiltrates. Follow-up may confirm stability. Dictated by: Carlos Starks MD 03/04/2020 05:31 Carlos Starks MD in [facility] 03/04/2020 05:31
[2020-03-04 02:00] VITALS: BP 121/57; PULSE 93; RESP 16; O2SAT 96
[2020-03-04 02:34] VITALS: BP 142/57; PULSE 92; RESP 15; O2SAT 97
[2020-03-04 03:07] LABS: Microscopic, Urine URINE MICROSCOPIC (MICROSCOPIC)
[2020-03-04 03:08] LABS: Appearance,Urine CLEAR (Clear); Bilirubin,Urine Negative (Negative); Blood, Urine Negative (Negative); Color,Urine DK YELLOW (Yellow); Glucose,Urine (UA) Negative (Negative); Ketones,Urine Negative (Negative); Leukocyte Esterase,Urine 1+ (Negative); Nitrate,Urine Negative (Negative); Protein,Urine Negative (Negative); Urobilinogen,Urine 0.2 EU/dl (0.2)
[2020-03-04 03:11] VITALS: BP 132/59; PULSE 92; RESP 16; TEMP 37; O2SAT 98
[2020-03-04 03:23] LABS: Bacteria,Urine 1+ /lpf
--- NOTE | 2020-03-04 03:46 | PC.NURSE ---
spoke with Pts daughter tigre for pt update and informed her pt was ready to be discharged
[2020-03-04 04:34] VITALS: BP 127/52; PULSE 91; RESP 15; TEMP 37; O2SAT 97
== END 2020-03-04 04:36 | disposition home or self-care (01) ==
PROVIDERS: Emergency Provider Emergency Medicine; PCP Family Medicine
DX: R10.13 Epigastric pain (principal); D64.9 Anemia, unspecified; F41.9 Anxiety disorder, unspecified; J44.9 Chronic obstructive pulmonary disease, unspecified; K21.9 Gastro-esophageal reflux disease without esophagitis; M79.7 Fibromyalgia; I25.2 Old myocardial infarction; E03.9 Hypothyroidism, unspecified; E78.5 Hyperlipidemia, unspecified; Z01.84 Encounter for antibody response examination; Z87.891 Personal history of nicotine dependence; Z79.899 Other long term (current) drug therapy; Z88.2 Allergy status to sulfonamides; Z88.5 Allergy status to narcotic agent
CPT/HCPCS: 71046; 74176; 80053; 81001; 82150; 83605; 83690; 85025; 85651; 86140; 86328; 87040; 87086; 87088; 87186; 96365; 96375; 99284; J2405

== ENCOUNTER → 2020-03-21 17:16 | Outpatient (CLI) | payer MEDICARE, SELFPAY ==
[2020-03-21 18:09] LABS: Basophils % 0.4 % (0.1-2.0); Eosinophils # 0.6 K/mm3 (0.0-0.4); Eosinophils % 5.9 % (0.1-12.0); Hematocrit 28.5 % (37.0-47.0); Hemoglobin 9.6 g/dL (12.2-16.2); Lymphocytes # 0.8 K/mm3 (0.7-4.5); Lymphocytes % 8.2 % (10-50); Mean Corpuscular HGB Conc 33.7 g/dL (31.8-35.4); Mean Corpuscular Hemoglobin 29.4 pg (27.0-31.2); Mean Corpuscular Volume 87.3 fl (81-99); Mean Platelet Volume 6.4 fl (7.4-10.4); Monocytes # 0.5 K/mm3 (0.1-1.0); Monocytes % 5.3 % (1.7-9.3); Neutrophils # 8.1 K/mm3 (1.8-7.8); Neutrophils % 80.1 % (37.0-80.0); Platelet Count 322 K/mm3 (142-424); Red Blood Count 3.27 M/mm3 (4.20-5.40); White Blood Count 10.2 K/mm3 (4.8-10.8)
[2020-03-21 19:13] LABS: Chloride 97 mmol/L (98-107); Potassium 4.1 mmoL/L (3.5-5.1); Sodium 138 mmol/L (136-145)
[2020-03-21 19:14] LABS: Albumin Level 3.8 g/dl (3.5-5.0)
[2020-03-21 19:16] LABS: Anion Gap 11.1 mEq/L (5-15); Blood Urea Nitrogen 16 mg/dl (7-17); Carbon Dioxide 34 mmol/L (22.0-30.0); Estimated Glomerular Filt Rate 44 ml/min (>60); GFR (African American) 53 ML/MIN (>60)
[2020-03-21 19:17] LABS: Glucose 94 mg/dl (74-100); Phosphorous 4.7 mg/dl (2.5-4.5)
[2020-03-21 19:18] LABS: Iron 44 ug/dL (37-170)
[2020-03-21 19:29] LABS: Total Iron Binding Capacity 224 ug/dL (265-497)
[2020-03-21 19:53] LABS: Ferritin 316 ng/ml (11.1-264)
== END ==
PROVIDERS: PCP Family Medicine; Visit Provider Internal Medicine Nephrology
DX: N18.4 Chronic kidney disease, stage 4 (severe) (principal); D50.0 Iron deficiency anemia secondary to blood loss (chronic)
CPT/HCPCS: 36415; 80069; 82728; 83540; 83550; 85025

== ENCOUNTER → 2020-03-24 13:05 | Outpatient (POV) | payer MEDICARE, SELFPAY ==
[2020-03-24 15:59] LABS: Microscopic, Urine URINE MICROSCOPIC (MICROSCOPIC)
[2020-03-24 17:13] LABS: Appearance,Urine CLEAR (Clear); Bilirubin,Urine Negative (Negative); Blood, Urine Negative (Negative); Color,Urine YELLOW (Yellow); Glucose,Urine (UA) Negative (Negative); Ketones,Urine Negative (Negative); Leukocyte Esterase,Urine Negative (Negative); Nitrate,Urine Negative (Negative); Protein,Urine Negative (Negative); Urobilinogen,Urine 0.2 EU/dl (0.2)
[2020-03-24 18:17] LABS: Creatinine,Urine Random 60 mg/dL (Not Estab.)
== END ==
PROVIDERS: Visit Provider Internal Medicine Nephrology
DX: N17.9 Acute kidney failure, unspecified (principal)
CPT/HCPCS: 81001; 82570; 84155

== ENCOUNTER → 2020-04-15 09:52 | Outpatient (CLI) | payer MEDICARE, SELFPAY ==
--- NOTE | 2020-04-15 09:56 | US_ITS ---
PROCEDURE: US SOFT TISSUE HEAD AND NECK CLINICAL INDICATION: LYMPHADENITIS Palpable nodule left upper neck COMPARISON: No exams were available for comparison FINDINGS: Parotid and submandibular glands have an unremarkable appearance. There small bilateral lymph nodes present within the neck measuring up to 1 cm bilaterally. No abnormal fluid collections are evident. IMPRESSION: Small bilateral cervical lymph nodes. Dictated by: Carlos Starks MD 04/15/2020 15:49 Carlos Starks MD in [facility] 04/15/2020 15:49
== END ==
PROVIDERS: PCP Family Medicine; Visit Provider Nurse Practitioner
DX: L04.9 Acute lymphadenitis, unspecified (principal)
CPT/HCPCS: 76536

== ENCOUNTER 2020-06-10 11:11 | Outpatient (CLI) | payer MEDICARE, SELFPAY ==
[2020-06-10 11:40] VITALS: BP 133/54; PULSE 107; RESP 20; TEMP 36.3; O2SAT 98
[2020-06-10 12:10] VITALS: BP 131/59; PULSE 108; RESP 20
[2020-06-10 12:23] VITALS: BMI 29.9
[2020-06-10 12:40] VITALS: BP 124/40; PULSE 107; RESP 20
[2020-06-10 13:10] VITALS: BP 136/58; PULSE 105; RESP 18
[2020-06-10 13:30] VITALS: BP 131/63; PULSE 111; RESP 20
[2020-06-10 14:11] LABS: Basophils % 0.2 % (0.1-2.0); Eosinophils # 0.2 K/mm3 (0.0-0.4); Eosinophils % 1.5 % (0.1-12.0); Hematocrit 30.1 % (37.0-47.0); Hemoglobin 9.9 g/dL (12.2-16.2); Lymphocytes # 0.8 K/mm3 (0.7-4.5); Lymphocytes % 7.5 % (10-50); Mean Corpuscular HGB Conc 32.9 g/dL (31.8-35.4); Mean Corpuscular Hemoglobin 30.6 pg (27.0-31.2); Mean Corpuscular Volume 92.9 fl (81-99); Mean Platelet Volume 7.8 fl (7.4-10.4); Monocytes # 0.5 K/mm3 (0.1-1.0); Monocytes % 5.3 % (1.7-9.3); Neutrophils # 8.6 K/mm3 (1.8-7.8); Neutrophils % 85.5 % (37.0-80.0); Platelet Count 180 K/mm3 (142-424); Red Blood Count 3.24 M/mm3 (4.20-5.40); Red Cell Distribution Width 15.2 % (11.5-17.5)
[2020-06-10 14:14] LABS: MANUAL DIFFERENTIAL MANUAL DIFFERENTIAL (MANUAL DIFF)
[2020-06-10 14:20] LABS: Eosinophils % 2 % (0-3); Lymphocytes % 5 % (10-50); Monocytes % 3 % (2-9); Neutrophils % 90 % (42-76); Platelet Estimate Normal; RBC Morphology Normal; Total Cells Counted 100
[2020-06-10 14:28] LABS: Alanine Aminotransferase 14 U/L (12-78); Albumin Level 3.5 g/dl (3.5-5.0); Albumin/Globulin Ratio 0.9 (1.1-1.8); Alkaline Phosphatase 74 U/L (38-126); Anion Gap 10.1 mEq/L (5-15); Aspartate Amino Transferase 22 U/L (14-36); Bilirubin,Total 0.3 mg/dl (0.2-1.3); Blood Urea Nitrogen 34 mg/dl (7-17); Calcium 8.4 mg/dl (8.4-10.2); Carbon Dioxide 27 mmol/L (22.0-30.0); Chloride 103 mmol/L (98-107); Creatinine Clearance Estimated 47 mL/min (50-200); Estimated Glomerular Filt Rate 37 ml/min (>60); GFR (African American) 45 ML/MIN (>60); Globulin 3.7 g/dL (1.3-3.2); Glucose 149 mg/dl (74-100); Potassium 4.1 mmoL/L (3.5-5.1); Sodium 136 mmol/L (136-145); Total Protein,Serum 7.2 g/dl (6.3-8.2)
[2020-06-10 15:18] LABS: Vitamin B12 306 pg/mL (239-931)
== END 2020-06-10 14:00 | disposition home or self-care (01) ==
LOC: INF 11:11
PROVIDERS: Visit Provider Internal Medicine Critical Care Medicine
DX: D80.3 Selective deficiency of immunoglobulin G [IgG] subclasses (principal)
CPT/HCPCS: 80053; 82607; 85007; 85025; 96365; 96366; J1568; J1642

== ENCOUNTER → 2020-07-15 17:03 | Outpatient (CLI) | payer MEDICARE, SELFPAY | PROVIDERS: PCP Family Medicine; Visit Provider Family Medicine | DX: Z20.822 Contact with and (suspected) exposure to COVID-19 (principal) | CPT/HCPCS: U0003 ==

== ENCOUNTER 2020-07-22 11:09 | Outpatient (CLI) | payer MEDICARE, SELFPAY ==
[2020-07-22 11:54] VITALS: BP 133/67; PULSE 95; RESP 22; TEMP 36.6; O2SAT 95
[2020-07-22 12:20] VITALS: BP 142/78; PULSE 92; RESP 20; O2SAT 96
[2020-07-22 12:50] VITALS: BP 139/69; PULSE 91; RESP 20; O2SAT 98
[2020-07-22 13:20] VITALS: BP 125/72; PULSE 89; RESP 20; TEMP 36.7; O2SAT 98
[2020-07-22 13:50] VITALS: BP 140/76; PULSE 88; RESP 18; O2SAT 97
[2020-07-22 14:10] VITALS: BP 136/74; PULSE 85; RESP 22; TEMP 36.6; O2SAT 96
== END 2020-07-22 14:20 | disposition home or self-care (01) ==
LOC: INF 11:09
PROVIDERS: Visit Provider Internal Medicine Critical Care Medicine
DX: D80.3 Selective deficiency of immunoglobulin G [IgG] subclasses (principal)
CPT/HCPCS: 96365; 96366; J1568; J1642

== ENCOUNTER 2020-08-11 14:44 | Observation (INO) | payer MEDICARE, SELFPAY ==
[2020-08-11] VITALS (9 sets, daily range): BP systolic 106–143; BP diastolic 43–79; PULSE 90–104; RESP 18–25; TEMP 36.7–38.4; O2SAT 91–100; BMI 31.4; BMI 29.9
--- NOTE | 2020-08-11 14:46 | HMH.EDGENADL ---
ED Disposition Clinical Impression: Community acquired pneumonia Qualifiers: Laterality: right Lung location: middle lobe of lung Qualified Code(s): J18.9 - Pneumonia, unspecified organism COPD (chronic obstructive pulmonary disease) Qualifiers: COPD type: unspecified COPD Qualified Code(s): J44.9 - Chronic obstructive pulmonary disease, unspecified Disposition: Admitted as Observation Condition on Discharge: Fair Referrals: Asad Ford MD [Primary Care Provider] - - Critical Care Critical Care Time: No Attestation: On , the high probability of a clinically significant, sudden or life threatening deterioration of the following system(s) required my full and direct attention, intervention and personal management. The time I documented below is in addition to time spent performing reported procedures but includes the following listed in this critical care notation. Medical Decision Making - Julius Inquiry Pt receiving controlled substance: No Vital Signs: 08/11/20 15:06 08/11/20 15:15 08/11/20 15:30 Temperature 101.2 F H Temperature Source Oral Pulse Rate 101 H 97 H 104 H Respiratory Rate 25 H 24 Blood Pressure 112/43 L Blood Pressure Mean 02 Sat by Pulse Oximetry 100 100 96 08/11/20 15:33 08/11/20 16:00 08/11/20 16:31 Temperature Temperature Source Pulse Rate 98 H 96 H 93 H Respiratory Rate Blood Pressure 118/47 L 116/60 106/49 L Blood Pressure Mean 70 78 68 02 Sat by Pulse Oximetry 99 98 98 - Lab Data Lab Results 08/11/20 15:32: WBC 13.1 H, RBC 3.16 L, Hgb 9.7 L, Hct 29.7 L, MCV 94.1, MCH 30.7, MCHC 32.6, RDW 13.6, Plt Count 152, MPV 7.2 L, Neut % (Auto) 92.6 H, Lymph % (Auto) 3.6 L, [place] % (Auto) 3.0, Eos % (Auto) 0.6, Baso % (Auto) 0.3, Neut # (Auto) 12.1 H, Lymph # (Auto) 0.5 L, [place] # (Auto) 0.4, Eos # (Auto) 0.1, Baso # (Auto) 0.0, Total Counted 100, Neutrophils % (Manual) 93 H, Lymphocytes % (Manual) 5 L, Monocytes % (Manual) 2, Platelet Estimate Normal, RBC Morphology Normal 08/11/20 15:32: Sodium 136, Potassium 5.2 H, Chloride 102, Carbon Dioxide 31 H, Anion Gap 8.2, BUN 40 H, Creatinine 1.10 H, Estimated Creat Clear 63, Estimated GFR 49 L, Est GFR ( Amer) 59, Glucose 118 H, Calcium 8.3 L, Total Bilirubin 0.4, AST 27, ALT 27, Alkaline Phosphatase 82, Troponin I < 0.01, Total Protein 6.2 L, Albumin 3.4 L, Globulin 2.8, Albumin/Globulin Ratio 1.2 08/11/20 15:32: Lactate 0.9 Result diagrams: 08/11/20 15:32 08/11/20 15:32 Orders (Tests/Meds): ED MEDICATIONS Generic Name Dose Route Start Last Admin Trade Name Bucky PRN Reason Stop Dose Admin Ceftriaxone Sodium 1 gm/ 50 mls @ 100 mls/hr 08/11/20 15:15 08/11/20 15:52 Sodium Chloride IV 08/25/20 15:14 Not Given Q24H [facility] Protocol Azithromycin 500 mg/ Sodium 250 mls @ 250 mls/hr 08/11/20 15:15 08/11/20 15:53 Chloride IV 08/25/20 15:14 250 mls/hr Q24H [facility] Administration Protocol Sodium Chloride 3 ml 08/11/20 15:05 Sodium Chloride 3% 15ml Neb 09/10/20 15:04 ONCE PRN INDUCE SPUTUM COLLECTION Discontinued Medications Generic Name Dose Route Start Last Admin Trade Name Bucky PRN Reason Stop Dose Admin Acetaminophen 1,000 mg 08/11/20 15:06 08/11/20 15:42 Acetaminophen 500mg Tab PO 08/11/20 15:07 1,000 mg ONCE ONE Administration Albuterol/Ipratropium 2 puff 08/11/20 15:06 08/11/20 15:28 Combivent 20mcg/100mcg Respimat Inhaler 08/11/20 15:07 2 puff ONCE ONE Administration Methylprednisolone Sodium Succinate 125 mg 08/11/20 15:05 08/11/20 15:27 Methylprednisolone Sod Succ 125mg Vial IV 08/11/20 15:06 125 mg ONCE ONE Administration Miscellaneous 1 unit 08/11/20 15:06 08/11/20 15:28 Aerochamber/Optihaler 08/11/20 15:07 1 unit ONCE ONE Administration Ondansetron HCl 4 mg 08/11/20 16:18 08/11/20 16:26 Ondansetron 4mg/2ml Vial IV 08/11/20 16:19 4 mg ONCE ONE Administration ORDERS Category Date
--- NOTE | 2020-08-11 14:48 | ECG_ITS ---
APPROVED REPORT Exam: Resting ECG HR:103 bpm ECG Measurements Heart Rate 103 AXES PA 164 P 77 QRSd 122 QRS 40 QT 358 T 46 QTc 468 Conclusion Sinus tachycardia Right bundle branch block Abnormal ECG Electronically signed by : Asad Butcher, 08/11/2020 17:38:23
--- NOTE | 2020-08-11 14:50 | XR_ITS ---
PROCEDURE: XR CHEST PORTABLE CLINICAL HISTORY: sob COMPARISON: CT CHESTWO CT chest wo con from 12/18/2018 CR XR CHEST PORTABLE from 09/17/2019 CR XR CHEST PORTABLE from 02/17/2020 CR XR CHEST 2V from 03/04/2020 FINDINGS: The cardiomediastinal silhouette and pulmonary vascularity are within normal limits. Right IJ MediPort catheter is present. The tip is in the region the SVC COPD changes. Increased markings are present in the right perihilar region suspicious for an area of pneumonia. Severe degenerative changes with bony hypertrophy is noted in the left shoulder. IMPRESSION: Right perihilar infiltrate. Suggest following till clear in this patient with COPD. Dictated by: Carlos Starks MD 08/11/2020 15:16 Carlos Starks MD in [place] 08/11/2020 15:16
--- NOTE | 2020-08-11 14:56 | PC.NURSE ---
rad at bedside
[2020-08-11 15:35] LABS: Adenovirus,PCR Not Detected (NotDetected); Bordetella Pertussis Not Detected (NotDetected); Chlamydophila Pneumoniae, PCR Not Detected (NotDetected); Coronavirus 19, PCR Not Detected (NotDetected); Coronavirus 229E Not Detected (NotDetected); Coronavirus NL63 Not Detected (NotDetected); Coronavirus OC43 Not Detected (NotDetected); Coronovirus HKU1,PCR Not Detected (NotDetected); Human Metapneumovirus Not Detected (NotDetected); Influenza A, PCR Not Detected (NotDetected); Influenza AH1, 2009 Not Detected (NotDetected); Influenza AH1, PCR Not Detected (NotDetected); Influenza AH3,PCR Not Detected (NotDetected); Influenza B, PCR Not Detected (NotDetected); Mycoplasma Pneumoniae, PCR Not Detected (NotDetected); Parainfluenza 1, PCR Not Detected (NotDetected); Parainfluenza 2, PCR Not Detected (NotDetected); Parainfluenza 3, PCR Not Detected (NotDetected); Parainfluenza 4, PCR Not Detected (NotDetected); Respiratory Syncytial Virus Not Detected (NotDetected); Rhinovirus/Enterovirus Not Detected (NotDetected)
[2020-08-11 15:47] LABS: Basophils % 0.3 % (0.1-2.0); Eosinophils # 0.1 K/mm3 (0.0-0.4); Eosinophils % 0.6 % (0.1-12.0); Hematocrit 29.7 % (37.0-47.0); Hemoglobin 9.7 g/dL (12.2-16.2); Lymphocytes # 0.5 K/mm3 (0.7-4.5); Lymphocytes % 3.6 % (10-50); Mean Corpuscular HGB Conc 32.6 g/dL (31.8-35.4); Mean Corpuscular Hemoglobin 30.7 pg (27.0-31.2); Mean Corpuscular Volume 94.1 fl (81-99); Mean Platelet Volume 7.2 fl (7.4-10.4); Monocytes # 0.4 K/mm3 (0.1-1.0); Neutrophils # 12.1 K/mm3 (1.8-7.8); Neutrophils % 92.6 % (37.0-80.0); Platelet Count 152 K/mm3 (142-424); Red Blood Count 3.16 M/mm3 (4.20-5.40); Red Cell Distribution Width 13.6 % (11.5-17.5); White Blood Count 13.1 K/mm3 (4.8-10.8)
[2020-08-11 15:53] LABS: Chloride 102 mmol/L (98-107); Potassium 5.2 mmoL/L (3.5-5.1); Sodium 136 mmol/L (136-145)
[2020-08-11 15:55] LABS: Blood Urea Nitrogen 40 mg/dl (7-17); Creatinine Clearance Estimated 63 mL/min (50-200); Estimated Glomerular Filt Rate 49 ml/min (>60); GFR (African American) 59 ML/MIN (>60); Lactic Acid 0.9 mmol/L (0.7-2.1)
[2020-08-11 15:56] LABS: Alanine Aminotransferase 27 U/L (12-78); Albumin Level 3.4 g/dl (3.5-5.0); Albumin/Globulin Ratio 1.2 (1.1-1.8); Alkaline Phosphatase 82 U/L (38-126); Anion Gap 8.2 mEq/L (5-15); Aspartate Amino Transferase 27 U/L (14-36); Bilirubin,Total 0.4 mg/dl (0.2-1.3); Calcium 8.3 mg/dl (8.4-10.2); Carbon Dioxide 31 mmol/L (22.0-30.0); Globulin 2.8 g/dL (1.3-3.2); Glucose 118 mg/dl (74-100); Total Protein,Serum 6.2 g/dl (6.3-8.2)
[2020-08-11 15:57] LABS: MANUAL DIFFERENTIAL MANUAL DIFFERENTIAL (MANUAL DIFF)
--- NOTE | 2020-08-11 16:00 | PC.NURSE ---
dr colleen dueñas
[2020-08-11 16:09] LABS: Troponin I < 0.01 ng/ml (0.00-0.034)
[2020-08-11 16:11] LABS: Lymphocytes % 5 % (10-50); Monocytes % 2 % (2-9); Neutrophils % 93 % (42-76); Platelet Estimate Normal; RBC Morphology Normal; Total Cells Counted 100
--- NOTE | 2020-08-11 16:27 | PC.NURSE ---
dr colleen dueñas
--- NOTE | 2020-08-11 16:59 | PC.NURSE ---
pt placed on bedside commode
--- NOTE | 2020-08-11 17:19 | PC.NURSE ---
Dr Meier speaking with Dr Arshad at this time who is friction paint machine tender for Dr Ford.
--- NOTE | 2020-08-11 18:17 | PC.NURSE ---
ATTEMPTED TO CALL REPORT, WILL HAVE TO CALL BACK
--- NOTE | 2020-08-11 18:38 | PC.NURSE ---
REPORT CALLED TO FLOOR
--- NOTE | 2020-08-11 18:56 | PC.NURSE ---
Pt arrived to the floor at this time.
[2020-08-11 20:31] LABS: C-Reactive Protein 15.5 mg/L (0-4)
[2020-08-11 20:43] LABS: Procalcitonin 0.164 ng/mL (0.0-2.0)
[2020-08-12] VITALS (10 sets, daily range): BP systolic 141–163; BP diastolic 62–88; PULSE 88–107; RESP 18–21; TEMP 36.7–37.5; O2SAT 95–99; BMI 29.9; BMI 30.1
--- NOTE | 2020-08-12 05:17 | PC.NURSE ---
Pt admitted to floor with PNA, SOA. Patient on O2 3 L n/c. Patient has not slept this shift. VSS, pt in NAD. Will continue to monitor.
--- NOTE | 2020-08-12 05:45 | PC.NURSE ---
pt has trilogy at bedside. she did not wear through out the night due to missing a piece. humidification added to O2 due to c/o nasal dryness. pt was advised to have home medication brought in due to being medicare obs.
--- NOTE | 2020-08-12 06:30 | PC.NURSE ---
SPUTUM CULTURE SENT TO LAB @629, ORDER IN AND CUP LABELED AND DATED.
[2020-08-12 06:58] LABS: Basophils % 0.1 % (0.1-2.0); Eosinophils % 0.3 % (0.1-12.0); Hematocrit 28.7 % (37.0-47.0); Hemoglobin 9.4 g/dL (12.2-16.2); Lymphocytes # 0.4 K/mm3 (0.7-4.5); Lymphocytes % 4.3 % (10-50); Mean Corpuscular HGB Conc 32.9 g/dL (31.8-35.4); Mean Corpuscular Hemoglobin 30.9 pg (27.0-31.2); Mean Corpuscular Volume 93.9 fl (81-99); Mean Platelet Volume 7.3 fl (7.4-10.4); Monocytes # 0.2 K/mm3 (0.1-1.0); Monocytes % 1.7 % (1.7-9.3); Neutrophils # 8.7 K/mm3 (1.8-7.8); Neutrophils % 93.6 % (37.0-80.0); Platelet Count 159 K/mm3 (142-424); Red Blood Count 3.05 M/mm3 (4.20-5.40); Red Cell Distribution Width 13.4 % (11.5-17.5); White Blood Count 9.3 K/mm3 (4.8-10.8)
[2020-08-12 07:06] LABS: MANUAL DIFFERENTIAL MANUAL DIFFERENTIAL (MANUAL DIFF)
[2020-08-12 07:07] LABS: Anion Gap 10.8 mEq/L (5-15); Blood Urea Nitrogen 35 mg/dl (7-17); Calcium 7.9 mg/dl (8.4-10.2); Carbon Dioxide 28 mmol/L (22.0-30.0); Chloride 101 mmol/L (98-107); Creatinine Clearance Estimated 66 mL/min (50-200); Estimated Glomerular Filt Rate 55 ml/min (>60); GFR (African American) 66 ML/MIN (>60); Glucose 131 mg/dl (74-100); Potassium 4.8 mmoL/L (3.5-5.1); Sodium 135 mmol/L (136-145)
--- NOTE | 2020-08-12 07:17 | HMH.PHAVTE ---
[facility] Pharmacy VTE Monitoring - Patient Demographics Admission date: 08/11/20 Report Date: 08/12/20 Time: 07:17 Allergies/Adverse Reactions: Patient Allergies hydrocodone [HYDROCODONE] Allergy (Severe, Verified 07/22/20 16:04) dizziness, n/v codeine [CODEINE] Allergy (Intermediate, Verified 07/22/20 16:04) dizziness. n/v Sulfa (Sulfonamide Antibiotics) [SULFA (SULFONAMIDE ANTIBIOTICS)] Adverse Reaction (Mild, Verified 07/22/20 16:04) n/v Height: 1.65 m Weight: 81.647 kg Patient Problems: Current Active Problems CAP (community acquired pneumonia) (Acute) COPD (chronic obstructive pulmonary disease) (Acute) - VTE Risk Labs: VTE Related Lab Results Hgb 9.4 g/dL (12.2-16.2) L 08/12/20 06:41 Hct 28.7 % (37.0-47.0) L 08/12/20 06:41 Plt Count 159 K/mm3 (142-424) 08/12/20 06:41 BUN 35 mg/dl (7-17) H 08/12/20 06:41 Creatinine 1.00 mg/dl (0.52-1.04) 08/12/20 06:41 Estimated Creat Clear 66 mL/min (50-200) 08/12/20 06:41 Was VTE Risk Assessment Performed: Yes VTE Score: 5 VTE Risk Level: Low Risk - Prophylaxis VTE Prophylaxis Ordered?: Yes Types of VTE Prophylaxis: TEDS Knee High Location of Applied Device: Bilateral Lower Extremeties
[2020-08-12 07:26] LABS: Procalcitonin 0.149 ng/mL (0.0-2.0)
--- NOTE | 2020-08-12 07:27 | HMH.HP ---
*Admission Date: 08/11/20 *Chief complaint: Shortness of breath *History of present illness: 74-year-old female with history of severe COPD presented to the office with family due to 2 weeks of shortness of breath that was above baseline. Patient reports sensation as if she needs to cough something up with restriction in the throat and upper chest. Patient's family requested hospitalization and due to perceived severity of symptoms was referred to the ER. Patient underwent evaluation which revealed mild elevation in white blood cell count, right middle lobe pneumonia. Patient denies having fevers at home although had a low-grade fever in the ER. She has had a cough that is productive of green sputum although apparently this has lightened up after admission. [facility] History I have reviewed the patient's past medical history: Yes Medical History: Reports:: Anxiety, Arrhythmia, Cardiomyopathy, Congestive Heart Failure, Chronic Obstructive Pulmonary Disease (COPD), Congenital Heart Disease, Coronary Artery Disease, Deep Vein Thrombosis, Gastroesophageal Reflux Disease(GERD), Hyperlipidemia, Hypertension, MRSA, Myocardial Infarction, Palpitations Denies:: Cancer, Diabetes Mellitus Type 1, Diabetes Mellitus Type 2, Internal Pacemaker *Have you ever received a pneumonia vaccine?: Yes *Have you received a flu vaccine this season?: Yes Other Medical History: Reports: Anemia, Arthritis, Cataracts, Fibromyalgia, Hypothyroidism, Sinus Problems, Thyroid Disease Laterality Cases: Left: Arthroscopy Hip, Right: Carpal Tunnel Release Other Surgeries: Yes: Appendectomy, Cardiac Catheterization, Cholecystectomy, Colonoscopy, Hysterectomy-Total, Tubal Ligation, Other. No: Pacemaker Amputation: No Fractures: Yes - *Social History Smoking Status: Former smoker Tobacco Type: cigarettes # Packs/Day (cigarettes): 1 #Yrs smoked (if former smoker): 40 Alcohol Intake: never Substance Use Type: denies use *Occupational Status:: retired Housing: house Household Members: family *Travel in the last 8 weeks: None - Psychiatric History Pschychiatric History:: Reports:: Anxiety Family Hx:: Asthma, Coronary Artery Disease, Hyperlipidemia, Hypertension, Alcoholism Review of Systems - Constitutional Denies body ache(s), Denies increased appetite - Eyes Denies blurry vision, Denies irritation - ENT Denies abnormal hearing - *Cardiovascular Denies chest pain, Denies chest pain at rest - *Respiratory Reports change in phlegm color, Reports chest congestion, Reports cough, Reports shortness of breath with activity - *Gastrointestinal Denies abdominal pain, Denies belching - *Genitourinary Denies painful urination - *Musculoskeletal Denies joint pain, Denies decreased muscle mass - Integumentary/Breasts Denies bleeding lesions - *Neurologic Denies abnormal hearing, Denies burning sensations, Denies confusion - Psychiatric Reports abnormal sleep pattern, Reports anxiety, Denies lack of enjoyment, Denies hearing things others do not hear Meds Home Medications Medication Instructions Recorded Confirmed Type Albuterol Sulfate [Albuterol 2.5 mg IH Q6HP PRN 05/24/17 08/12/20 History 0.083% 2.5mg/3mL neb] Albuterol Sulfate [Proair Hfa 2 puffs IH Q4HP PRN 05/24/17 08/12/20 History 90mcg/puff Inh] Aspirin [Aspirin 81mg EC Tab] 81 mg PO DAILY 05/24/17 08/12/20 History Budesonide/Formoterol Fumarate 2 puffs IH BID 05/24/17 08/12/20 History [Symbicort 160-4.5 Mcg Inhaler] Ipratropium [place] [Atrovent 0.5 mg IH BIDP PRN 05/24/17 08/12/20 History 0.5mg/2.5mL neb] Mirabegron [Myrbetriq] 50 mg PO HS 05/24/17 08/12/20 History [place] HCl [Salagen] 7.5 mg PO TIDP PRN 05/24/17 08/12/20 History Sertraline HCl [Zoloft] 100 mg PO HS 05/24/17 08/12/20 History Tiotropium [place] [Spiriva 1 puff IH DAILY 09/15/18 08/12/20 History 18mcg/puff inhaler] Pantoprazole Sodium [Protonix 40mg 40 mg PO DAILY 10/28/18 08/12/20 History ta
--- NOTE | 2020-08-12 07:36 | CT_ITS ---
PROCEDURE: CT SOFT TISSUE NECK WO CON CLINICAL HISTORY: enlarging cervical lymphadenopathy [id number] COMPARISON: No exams were available for comparison TECHNIQUE: Oral Contrast: None IV Contrast: None Axial images obtained with sagittal and coronal reformats. All CT scans at the facility use one or more dose reduction, viz: automated exposure control, ma/kV adjustment per patient size (including targeted exams where dose is matched to indication, i.e. head), or iterative reconstruction technique. FINDINGS: Full and symmetrical. The metallic BBs are placed over area of clinical interest and BBs correspond to submandibular glands which appear basically normal and symmetrical in appearance. There are couple of normal size nodes adjacent to the submandibular glands. There is no abnormal cervical lymphadenopathy noted. The thyroid gland appears grossly normal. The vocal cords appear normal. There is marked hypertrophic ossification of the anterior longitudinal ligament basically fusing C3 through C6. There is relatively normal preservation of the disc spaces and this ossification may represent diffuse idiopathic skeletal hyperostosis. IMPRESSION: No abnormal cervical lymphadenopathy noted metallic BBs projects over basically normal appearing submandibular glands bilaterally. Dictated by: Dr. Tom Carlton MD 08/12/2020 10:08 Dr. Tom Carlton MD in [place] 08/12/2020 10:08
[2020-08-12 08:12] LABS: Lymphocytes % 5 % (10-50); Monocytes % 1 % (2-9); Neutrophils % 94 % (42-76); Platelet Estimate Normal; RBC Morphology Normal; Total Cells Counted 100
--- NOTE | 2020-08-12 08:14 | HMH.PHACONS ---
- Pharmacy Consult Date: 08/12/20 Time: 08:14 Referring provider: DR. REID Reason for Consult:: VANCOMYCIN DOSING Allergies and ADEs:: Allergies Allergy/AdvReac Type Severity Reaction Status Date / Time hydrocodone [HYDROCODONE] Allergy Severe dizziness, Verified 07/22/20 16:04 n/v codeine [CODEINE] Allergy Intermediate dizziness. Verified 07/22/20 16:04 n/v Sulfa (Sulfonamide AdvReac Mild n/v Verified 07/22/20 16:04 Antibiotics) [SULFA (SULFONAMIDE ANTIBIOTICS)] Home Medications:: Home Medications Medication Instructions Recorded Confirmed Type Albuterol Sulfate [Albuterol 2.5 mg IH Q6HP PRN 05/24/17 08/12/20 History 0.083% 2.5mg/3mL neb] Albuterol Sulfate [Proair Hfa 2 puffs IH Q4HP PRN 05/24/17 08/12/20 History 90mcg/puff Inh] Aspirin [Aspirin 81mg EC Tab] 81 mg PO DAILY 05/24/17 08/12/20 History Budesonide/Formoterol Fumarate 2 puffs IH BID 05/24/17 08/12/20 History [Symbicort 160-4.5 Mcg Inhaler] Ipratropium [place] [Atrovent 0.5 mg IH BIDP PRN 05/24/17 08/12/20 History 0.5mg/2.5mL neb] Mirabegron [Myrbetriq] 50 mg PO HS 05/24/17 08/12/20 History [place] HCl [Salagen] 7.5 mg PO TIDP PRN 05/24/17 08/12/20 History Sertraline HCl [Zoloft] 100 mg PO HS 05/24/17 08/12/20 History Tiotropium [place] [Spiriva 1 puff IH DAILY 09/15/18 08/12/20 History 18mcg/puff inhaler] Pantoprazole Sodium [Protonix 40mg 40 mg PO DAILY 10/28/18 08/12/20 History tablet] guaiFENesin [Mucinex] 1,200 mg PO BID 05/25/19 08/12/20 History Montelukast Sodium 10 mg PO HS 07/13/19 08/12/20 History Promethazine HCl 12.5 mg PO Q6HP PRN 07/13/19 08/12/20 History Roflumilast [Daliresp] 500 mcg PO DAILY 07/13/19 08/12/20 History Rosuvastatin Calcium 10 mg PO DAILY 07/13/19 08/12/20 History Buspirone HCl [Buspar 10mg 10 mg PO BID #60 tab 07/16/19 08/12/20 Rx tablet] Clotrimazole [Antifungal] 30 gm TP BID PRN 09/17/19 08/12/20 History Hydrocortisone 5 mg PO HS 12/10/19 08/12/20 History Hydrocortisone 10 mg PO DAILY 12/10/19 08/12/20 History Bumetanide 2 mg PO DAILYP PRN 08/11/20 08/12/20 History Hydroxychloroquine Sulfate 200 mg PO DAILY 08/11/20 08/12/20 History [Plaquenil 200mg tablet] Trazodone HCl 100 mg PO HS 08/11/20 08/12/20 History Height: 1.65 m Weight: 81.647 kg Laboratory Results:: Laboratory Results - last 24 hr 08/11/20 15:30: Chlamy pneumoniae PCR Not detected, Adenovirus (PCR) Not detected, B. pertussis DNA (PCR) Not detected, Coronavirus OC43 (PCR) Not detected, Coronavirus HKU1 (PCR) Not detected, Coronavirus 229E (PCR) Not detected, SARS-CoV-2 (PCR) Not detected, Coronavirus NL63 (PCR) Not detected, Human Metapneumovir PCR Not detected, Influenza A (H1) PCR Not detected, Influ A (H1N1/09) PCR Not detected, Influenza A (H3) PCR Not detected, Influenza Type A (PCR) Not detected, Influenza Type B (PCR) Not detected, M. pneumoniae (PCR) Not detected, Parainfluenza 1 (PCR) Not detected, Parainfluenza 2 (PCR) Not detected, Parainfluenza 3 (PCR) Not detected, Parainfluenza 4 (PCR) Not detected, RSV (PCR) Not detected, Entero/Rhino (PCR) Not detected 08/11/20 15:32: WBC 13.1 H, RBC 3.16 L, Hgb 9.7 L, Hct 29.7 L, MCV 94.1, MCH 30.7, MCHC 32.6, RDW 13.6, Plt Count 152, MPV 7.2 L, Neut % (Auto) 92.6 H, Lymph % (Auto) 3.6 L, [place] % (Auto) 3.0, Eos % (Auto) 0.6, Baso % (Auto) 0.3, Neut # (Auto) 12.1 H, Lymph # (Auto) 0.5 L, [place] # (Auto) 0.4, Eos # (Auto) 0.1, Baso # (Auto) 0.0, Total Counted 100, Neutrophils % (Manual) 93 H, Lymphocytes % (Manual) 5 L, Monocytes % (Manual) 2, Platelet Estimate Normal, RBC Morphology Normal 08/11/20 15:32: Sodium 136, Potassium 5.2 H, Chloride 102, Carbon Dioxide 31 H, Anion Gap 8.2, BUN 40 H, Creatinine 1.10 H, Estimated Creat Clear 63, Estimated GFR 49 L, Est GFR ( Amer) 59, Glucose 118 H, Calcium 8.3 L, Total Bilirubin 0.4, AST 27, ALT 27, Alkaline Phosphatase 82, Troponin I < 0.01, Total Protein 6.2 L, Albumin 3.4 L, Globulin 2.8, [place]
--- NOTE | 2020-08-12 13:45 | HMH.PHAINT ---
MEDICATION RECONCILIATION COMPLETED USING EXTERNAL FILL HISTORY AND PHYSICIAN OFFICE RECORD
--- NOTE | 2020-08-12 20:18 | PC.NURSE ---
SHE IS AOX4, ABLE TO MAKE NEEDS KNOWN TO STAFF, HAS REQUIRED 2LNC T/O SHIFT, NO PAIN REPORTED
--- NOTE | 2020-08-12 21:00 | PC.NURSE ---
pt had no needs,restock gloves in room and snacks. Yamilet
[2020-08-13] VITALS (9 sets, daily range): BP systolic 102–138; BP diastolic 51–80; PULSE 81–102; RESP 16–20; TEMP 36.3–36.8; O2SAT 97–99; BMI 33.6
--- NOTE | 2020-08-13 05:29 | PC.NURSE ---
pt has no needs. Ice water,trash,dirty linen and room straighten up.Yamilet
--- NOTE | 2020-08-13 05:39 | PC.NURSE ---
Patient denies pain and shows no s/s of acute distress noted at this time. Call light in reach, bed at lowest level for safety, will continue to monitor.
[2020-08-13 07:19] LABS: Basophils % 0.1 % (0.1-2.0); Eosinophils % 0.1 % (0.1-12.0); Hematocrit 28.5 % (37.0-47.0); Hemoglobin 9.3 g/dL (12.2-16.2); Lymphocytes # 0.5 K/mm3 (0.7-4.5); Lymphocytes % 4.7 % (10-50); Mean Corpuscular HGB Conc 32.4 g/dL (31.8-35.4); Mean Corpuscular Hemoglobin 30.5 pg (27.0-31.2); Mean Platelet Volume 7.1 fl (7.4-10.4); Monocytes # 0.2 K/mm3 (0.1-1.0); Monocytes % 2.5 % (1.7-9.3); Neutrophils % 92.7 % (37.0-80.0); Platelet Count 173 K/mm3 (142-424); Red Blood Count 3.04 M/mm3 (4.20-5.40); Red Cell Distribution Width 13.6 % (11.5-17.5); White Blood Count 9.8 K/mm3 (4.8-10.8)
[2020-08-13 07:29] LABS: MANUAL DIFFERENTIAL MANUAL DIFFERENTIAL (MANUAL DIFF)
[2020-08-13 07:40] LABS: Procalcitonin 0.121 ng/mL (0.0-2.0)
--- NOTE | 2020-08-13 08:05 | P.PN_ITS ---
Internal Medicine - PN: Subj *Date: 08/13/20 *Time: 08:05 Interval history: Patient without any acute events over the last 24 hours. Complains of anxiety with administration of IV steroids. Xanax was added to be taking simultaneously Exam Vital signs and Labs for Last 24 Hours: Temp Pulse Resp BP Pulse Ox 97.4 F L 90 18 102/54 L 99 08/13/20 04:00 08/13/20 06:55 08/13/20 04:00 08/13/20 04:00 08/13/20 06:55 Laboratory Results - last 24 hr 08/12/20 06:41: Total Counted 100, Neutrophils % (Manual) 94 H, Lymphocytes % (Manual) 5 L, Monocytes % (Manual) 1 L, Platelet Estimate Normal, RBC Morphology Normal 08/13/20 06:50: Procalcitonin 0.121 08/13/20 06:50: WBC 9.8, RBC 3.04 L, Hgb 9.3 L, Hct 28.5 L, MCV 94.0, MCH 30.5, MCHC 32.4, RDW 13.6, Plt Count 173, MPV 7.1 L, Neut % (Auto) 92.7 H, Lymph % (Auto) 4.7 L, [place] % (Auto) 2.5, Eos % (Auto) 0.1, Baso % (Auto) 0.1, Neut # (Auto) 9.0 H, Lymph # (Auto) 0.5 L, [place] # (Auto) 0.2, Eos # (Auto) 0.0, Baso # (Auto) 0.0 I & O for Last 24 hours: Intake & Output 08/10/20 08/11/20 08/12/20 08/13/20 11:59 11:59 11:59 11:59 Intake Total 490 / 490 360 / 360 Balance 490 / 490 360 / 360 Weight 180 lb 0.013 oz 202 lb Microbiology Reports for the Last 24 Hours: Microbiology 08/12/20 06:30 Sputum - Expectorated Sputum Sputum Culture - Preliminary - Constitutional no acute distress - *Routine Respiratory Exam Present: rales Comments: Right lateral and posterior midlung with improved aeration in this area - *Routine Cardiovascular Exam Present: RRR - *Routine Abdominal Exam Present: soft, normoactive bowel sounds. Absent: tenderness Assessment and Plan (1) Right middle lobe pneumonia Status: Acute Category: Medical Code(s): J18.9 - Pneumonia, unspecified organism (2) History of MRSA infection of lungs Status: Acute Category: Medical Code(s): Z86.14 - Personal history of Methicillin resistant Staphylococcus aureus infection (3) History of Pseudomonas pneumonia Status: Acute Category: Medical Code(s): Z87.01 - Personal history of pneumonia (recurrent) (4) IgG subclass deficiency Status: Acute Category: Medical Code(s): D80.3 - Selective deficiency of immunoglobulin G [IgG] subclasses (5) Very severe chronic obstructive pulmonary disease Status: Acute Category: Medical Code(s): J44.9 - Chronic obstructive pulmonary disease, unspecified (6) CAD (coronary artery disease) Status: Chronic Qualifiers: Category: Medical Code(s): I25.10 - Atherosclerotic heart disease of [place] coronary artery without angina pectoris (7) HHD (hypertensive heart disease) Status: Chronic Qualifiers: Category: Medical Code(s): I11.9 - Hypertensive heart disease without heart failure (8) Cervical adenopathy Status: Ruled-out Category: Medical Code(s): R59.0 - Localized enlarged lymph nodes - Assessment and plan all Dx Assessment and Plan for all problems:: Continue broad-spectrum antibiotics while awaiting sputum cultures. Discontinue IV steroids due to lack of wheezing. Continue Mucomyst and duo nebs along with controller COPD inhalers
[2020-08-13 08:07] LABS: Chloride 103 mmol/L (98-107); Potassium 4.4 mmoL/L (3.5-5.1); Sodium 138 mmol/L (136-145)
[2020-08-13 08:10] LABS: Anion Gap 10.4 mEq/L (5-15); Blood Urea Nitrogen 31 mg/dl (7-17); Carbon Dioxide 29 mmol/L (22.0-30.0); Creatinine Clearance Estimated 67 mL/min (50-200); Estimated Glomerular Filt Rate 49 ml/min (>60); GFR (African American) 59 ML/MIN (>60); Glucose 145 mg/dl (74-100)
[2020-08-13 08:19] LABS: Lymphocytes % 8 % (10-50); Monocytes % 3 % (2-9); Neutrophils % 89 % (42-76); Platelet Estimate Normal; RBC Morphology Normal; Total Cells Counted 100
--- NOTE | 2020-08-13 19:32 | PC.NURSE ---
she is aox4, has been up to chair t/o shift, has not c/o pain, denies soa
[2020-08-14] VITALS (9 sets, daily range): BP systolic 113–152; BP diastolic 46–85; PULSE 83–98; RESP 16–20; TEMP 36.5–36.7; O2SAT 93–100; BMI 33.9
--- NOTE | 2020-08-14 04:53 | PC.NURSE ---
patient voiced no complaints, sat in chair until ready for bed. Shows no s/s of acute distress at this time, call light in reach, bed at lowest level for safety, will continue to monitor.
[2020-08-14 07:18] LABS: Basophils % 0.1 % (0.1-2.0); Eosinophils # 0.1 K/mm3 (0.0-0.4); Eosinophils % 0.7 % (0.1-12.0); Hemoglobin 8.9 g/dL (12.2-16.2); Lymphocytes # 1.7 K/mm3 (0.7-4.5); Lymphocytes % 17.9 % (10-50); Mean Corpuscular HGB Conc 32.8 g/dL (31.8-35.4); Mean Corpuscular Hemoglobin 30.9 pg (27.0-31.2); Mean Corpuscular Volume 94.1 fl (81-99); Monocytes # 0.4 K/mm3 (0.1-1.0); Monocytes % 4.6 % (1.7-9.3); Neutrophils # 7.1 K/mm3 (1.8-7.8); Neutrophils % 76.7 % (37.0-80.0); Platelet Count 183 K/mm3 (142-424); Red Blood Count 2.89 M/mm3 (4.20-5.40); Red Cell Distribution Width 13.5 % (11.5-17.5); White Blood Count 9.3 K/mm3 (4.8-10.8)
[2020-08-14 07:19] LABS: Hematocrit 27.2 % (37.0-47.0)
[2020-08-14 07:38] LABS: Anion Gap 7.6 mEq/L (5-15); Blood Urea Nitrogen 29 mg/dl (7-17); Calcium 8.1 mg/dl (8.4-10.2); Carbon Dioxide 29 mmol/L (22.0-30.0); Chloride 105 mmol/L (98-107); Creatinine Clearance Estimated 62 mL/min (50-200); Estimated Glomerular Filt Rate 44 ml/min (>60); GFR (African American) 53 ML/MIN (>60); Glucose 86 mg/dl (74-100); Potassium 4.6 mmoL/L (3.5-5.1); Sodium 137 mmol/L (136-145)
[2020-08-14 07:43] LABS: C-Reactive Protein 9.8 mg/L (0-4)
[2020-08-14 07:56] LABS: Procalcitonin 0.132 ng/mL (0.0-2.0)
--- NOTE | 2020-08-14 07:56 | HMH.ACPN2 ---
Internal Medicine - PN: Subj *Date: 08/14/20 *Time: 07:56 Interval history: Patient continues to complain of feeling short of breath and inability to get a deep breath with sensation of chest congestion. Cough has become minimally productive. Sputum culture has shown no growth. Blood cultures have shown no growth. Patient has maintained her O2 sats in the mid 90s on 2-1/2 L of oxygen. She also complains of thrush Exam Vital signs and Labs for Last 24 Hours: Temp Pulse Resp BP Pulse Ox 97.7 F 86 16 117/73 96 08/14/20 04:00 08/14/20 06:50 08/14/20 04:00 08/14/20 04:00 08/14/20 06:50 Laboratory Results - last 24 hr 08/13/20 06:50: Total Counted 100, Neutrophils % (Manual) 89 H, Lymphocytes % (Manual) 8 L, Monocytes % (Manual) 3, Platelet Estimate Normal, RBC Morphology Normal 08/13/20 06:50: Sodium 138, Potassium 4.4, Chloride 103, Carbon Dioxide 29, Anion Gap 10.4, BUN 31 H, Creatinine 1.10 H, Estimated Creat Clear 67, Estimated GFR 49 L, Est GFR ( Amer) 59, Glucose 145 H, Calcium 8.0 L 08/14/20 06:50: WBC 9.3, RBC 2.89 L, Hgb 8.9 L, Hct 27.2 L, MCV 94.1, MCH 30.9, MCHC 32.8, RDW 13.5, Plt Count 183, MPV 7.0 L, Neut % (Auto) 76.7, Lymph % (Auto) 17.9, [place] % (Auto) 4.6, Eos % (Auto) 0.7, Baso % (Auto) 0.1, Neut # (Auto) 7.1, Lymph # (Auto) 1.7, [place] # (Auto) 0.4, Eos # (Auto) 0.1, Baso # (Auto) 0.0 08/14/20 06:50: Sodium 137, Potassium 4.6, Chloride 105, Carbon Dioxide 29, Anion Gap 7.6, BUN 29 H, Creatinine 1.20 H, Estimated Creat Clear 62, Estimated GFR 44 L, Est GFR ( Amer) 53 L, Glucose 86 D, Calcium 8.1 L, C-Reactive Protein 9.8 H D I & O for Last 24 hours: Intake & Output 08/11/20 08/12/20 08/13/20 08/14/20 11:59 11:59 11:59 11:59 Intake Total 490 / 490 600 / 600 480 / 480 Output Total 300 / 300 Balance 490 / 490 600 / 600 180 / 180 Weight 180 lb 0.013 oz 202 lb 203 lb 7 oz Microbiology Reports for the Last 24 Hours: Microbiology 08/12/20 06:30 Sputum - Expectorated Sputum Sputum Culture - Final Normal Respiratory Analia 08/11/20 15:32 Blood Blood Culture - Preliminary NO GROWTH AFTER 48 HOURS 08/11/20 15:32 Blood Blood Culture - Preliminary NO GROWTH AFTER 48 HOURS - Constitutional no acute distress - *Routine HEENT Exam ENT: Present: mucous membranes dry (With thrush present) - *Routine Respiratory Exam Comments: Diminished breath sounds in the right midlung best heard both laterally and posteriorly - *Routine Cardiovascular Exam Present: RRR Assessment and Plan (1) Right middle lobe pneumonia Status: Acute Category: Medical Code(s): J18.9 - Pneumonia, unspecified organism (2) History of MRSA infection of lungs Status: Acute Category: Medical Code(s): Z86.14 - Personal history of Methicillin resistant Staphylococcus aureus infection (3) History of Pseudomonas pneumonia Status: Acute Category: Medical Code(s): Z87.01 - Personal history of pneumonia (recurrent) (4) IgG subclass deficiency Status: Acute Category: Medical Code(s): D80.3 - Selective deficiency of immunoglobulin G [IgG] subclasses (5) Very severe chronic obstructive pulmonary disease Status: Acute Category: Medical Code(s): J44.9 - Chronic obstructive pulmonary disease, unspecified (6) CAD (coronary artery disease) Status: Chronic Qualifiers: Category: Medical Code(s): I25.10 - Atherosclerotic heart disease of [place] coronary artery without angina pectoris (7) HHD (hypertensive heart disease) Status: Chronic Qualifiers: Category: Medical Code(s): I11.9 - Hypertensive heart disease without heart failure (8) Cervical adenopathy Status: Ruled-out Category: Medical Code(s): R59.0 - Localized enlarged lymph nodes - Assessment and plan all Dx Assessment and Plan for all problems:: 1. Patient antibiotics will be deescalated
[2020-08-14 08:27] LABS: Vitamin B12 268 pg/mL (239-931)
--- NOTE | 2020-08-14 14:55 | PC.NURSE ---
SHE IS AOX4, HAS BEEN UP TO CHAIR T/O SHIFT, AMBULATES WITH ASSISTANCE TO THE BSC FOR ELIMINATION, HAS TOLERATED DIET WELL, PT HAS REQUESTED XANAX FOR ANXIETYX1 TODAY, SHE DOES APPEAR SOB AT TIMES BUT O2 LEVELS HAVE REMINED STABLE WITH O2 SUPPORT AT 2LNC, ABD IS SOFT AND NON-TENDER ON PALPATION, PT DENIES N/V/D, NO NEEDS AT THIS TIME
[2020-08-15] VITALS (7 sets, daily range): BP systolic 120–146; BP diastolic 56–69; PULSE 83–107; RESP 16–20; TEMP 36.7–37; O2SAT 94–100; BMI 33.5
--- NOTE | 2020-08-15 07:02 | HMH.DCSUM ---
General - General Admission date:: 08/11/20 Discharge date: 08/15/20 HPI HPI: 74-year-old female with history of severe COPD presented to the office with family due to 2 weeks of shortness of breath that was above baseline. Patient reports sensation as if she needs to cough something up with restriction in the throat and upper chest. Patient's family requested hospitalization and due to perceived severity of symptoms was referred to the ER. Patient underwent evaluation which revealed mild elevation in white blood cell count, right middle lobe pneumonia. Patient denies having fevers at home although had a low-grade fever in the ER. She has had a cough that is productive of green sputum although apparently this has lightened up after admission. Hospital Course Hospital Course: Patient was admitted with right middle lobe pneumonia. Initially placed on Rocephin and azithromycin. On the morning of the I broadened antibiotic coverage due to patient's history of both Pseudomonas and MRSA while we were awaiting sputum and blood cultures. On presentation to the ER patient had reported significant green sputum production over the preceding week. Once hospitalized sputum production decreased and patient required repeat samples for adequacy. Ultimately both blood and sputum cultures were negative for bacterial growth. Procalcitonin remained low during hospitalization. Once patient's sputum cultures had returned with normal respiratory jun antibiotics were adjusted to azithromycin only. Patient was given Mucomyst to try to aid sputum clearance with mild success. Patient's O2 sats remained in the mid to high 90s on 2-1/2 to 3 L during hospitalization. On August 15 patient had reached maximum medical improvement and was discharged home. On admission patient had also been given IV steroids which significantly increased patient's anxiety. Patient did not have wheezing during hospitalization and after 48 hours IV steroids were discontinued in favor of patient's oral hydrocortisone. Objective Vital signs: Temp Pulse Resp BP Pulse Ox 98.6 F 86 16 146/63 H 100 08/15/20 04:00 08/15/20 04:00 08/15/20 04:00 08/15/20 04:00 08/15/20 04:00 no acute distress - *Routine HEENT Exam Head: Present: normocephalic Eye: Present: EOMI, PERRL ENT: Present: mucous membranes moist Comments: Thrush - *Routine Neck Exam Present: supple - *Routine Respiratory Exam Present: CTA bilaterally - *Routine Cardiovascular Exam Present: RRR - *Routine Abdominal Exam Present: soft, normoactive bowel sounds. Absent: tenderness - *Routine Extremities Exam Absent: cyanosis, clubbing, edema Results Labs on day of discharge: Labs from last 24 hours 08/14/20 08/14/20 06:50 06:50 WBC 9.3 RBC 2.89 L Hgb 8.9 L Hct 27.2 L MCV 94.1 MCH 30.9 MCHC 32.8 RDW 13.5 Plt Count 183 MPV 7.0 L Neut % (Auto) 76.7 Lymph % (Auto) 17.9 [place] % (Auto) 4.6 Eos % (Auto) 0.7 Baso % (Auto) 0.1 Neut # (Auto) 7.1 Lymph # (Auto) 1.7 [place] # (Auto) 0.4 Eos # (Auto) 0.1 Baso # (Auto) 0.0 Sodium 137 Potassium 4.6 Chloride 105 Carbon Dioxide 29 Anion Gap 7.6 BUN 29 H Creatinine 1.20 H Estimated Creat Clear 62 Estimated GFR 44 L Est GFR ( Amer) 53 L Glucose 86 D Calcium 8.1 L C-Reactive Protein 9.8 H D Vitamin B12 268 Procalcitonin 0.132 Preliminary micro results at discharge 08/11/20 15:32 Blood Culture - Preliminary Blood NO GROWTH AFTER 48 HOURS 08/11/20 15:32 Blood Culture - Preliminary Blood NO GROWTH AFTER 48 HOURS DS: Diagnosis - Discharge Diagnosis (1) Right middle lobe pneumonia Status: Acute (2) History of MRSA infection of lungs Status: Acute (3) History of Pseudomonas pneumonia Status: Acute (4) IgG subclass deficiency Status: Acute (5) Very severe chronic obstructive pulmonary disease [place]
--- NOTE | 2020-08-15 07:23 | SW/DCPLANNER ---
PATIENT ADMITTED TO AN OBSERVATION STATUS TO [facility] WITH A PNEUMONIA.... PATIENT IS FROM HOME AND RESIDES WITH HER FAMILY.. SHE HAS DONE WELL AND HAS NOT HAD ANY HOSPITALIZATIONS FOR A LONG LENGTH OF TIME... SHE IS DISCHARGING HOME TODAY AND DOES NOT HAVE ANY HOME CARE ORDERED AT THIS TIME... 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
== END 2020-08-15 17:35 | disposition home or self-care (01) ==
LOC: ER 15:15 → 2ND 18:02
PROVIDERS: Admitting Provider Family Medicine; Emergency Provider Emergency Medicine; PCP Family Medicine; Visit Provider Family Medicine
DX: J18.9 Pneumonia, unspecified organism (principal); J44.9 Chronic obstructive pulmonary disease, unspecified; Z86.14 Personal history of Methicillin resistant Staphylococcus aureus infection; Z87.01 Personal history of pneumonia (recurrent); D80.3 Selective deficiency of immunoglobulin G [IgG] subclasses; I25.10 Atherosclerotic heart disease of native coronary artery without angina pectoris; I11.9 Hypertensive heart disease without heart failure; Z79.899 Other long term (current) drug therapy; Z88.2 Allergy status to sulfonamides; Z88.5 Allergy status to narcotic agent; Z79.51 Long term (current) use of inhaled steroids
CPT/HCPCS: 36415; 70490; 71045; 80048; 80053; 82607; 83605; 84145; 84484; 85007; 85025; 86140; 87040; 87070; 87205; 87581; 87633; 87798; 93005; 94640; 96365; 99282; G0378; J0456; J1642; J1956; J2405; J3370

== ENCOUNTER 2020-08-19 09:10 | Outpatient (CLI) | payer MEDICARE, SELFPAY ==
[2020-08-19] VITALS (8 sets, daily range): BP systolic 96–133; BP diastolic 32–64; PULSE 98–104; RESP 20–22; O2SAT 99
--- NOTE | 2020-08-19 | XR_ITS ---
PROCEDURE: XR TIBIA FIBULA RT 2V CLINICAL INDICATION: RT FOOT PAIN COMPARISON: No exams were available for comparison FINDINGS: Degenerative changes of the knee joint. Bimalleolar fractures are better visualized on the ankle radiographs. Generalized osteopenia is noted. Soft tissue swelling adjacent to the ankle joint. IMPRESSION: Degenerative changes of knee joint. Bimalleolar fracture better visualized on the ankle radiographs. Dictated by: Melissa Lowry 08/19/2020 13:06 Melissa Lowry in [place] 08/19/2020 13:06
--- NOTE | 2020-08-19 | XR_ITS ---
PROCEDURE: XR ANKLE RT MIN 3V CLINICAL INDICATION: RT FOOT PAIN COMPARISON: No exams were available for comparison FINDINGS: There is evidence of mildly displaced bimalleolar fractures. Generalized osteopenia is noted. There is mild disruption of the ankle mortise with the mild medial subluxation of the tibiotalar joint. No evidence of dislocation. Multiple focal ossific bodies are noted at the tips of the medial and lateral malleoli, likely sequela of prior injury. Soft tissue swelling adjacent to the medial and lateral malleoli noted. Achilles tendon enthesopathy is noted. IMPRESSION: Mildly displaced bimalleolar fractures. Possible minor subluxation of the ankle mortise. Dictated by: Melissa Lowry 08/19/2020 13:03 Melissa Lowry in [place] 08/19/2020 13:03
--- NOTE | 2020-08-19 12:02 | XR_ITS ---
PROCEDURE: XR FOOT RT MIN 3V CLINICAL INDICATION: RT FOOT PAIN COMPARISON: No exams were available for comparison FINDINGS: Bimalleolar ankle fractures are better visualized on the ankle radiograph. No other acute fractures or dislocations. Degenerative changes of the 1st MTP joint. Generalized osteopenia is noted. Soft tissue swelling over the dorsum of the foot. IMPRESSION: Bimalleolar ankle fractures, better visualized on the ankle radiograph. Dictated by: Melissa Lowry 08/19/2020 13:04 Melissa Lowry in [place] 08/19/2020 13:04
== END 2020-08-19 11:55 | disposition home or self-care (01) ==
PROVIDERS: PCP Family Medicine; Visit Provider Internal Medicine Critical Care Medicine
DX: M79.671 Pain in right foot (principal); D80.3 Selective deficiency of immunoglobulin G [IgG] subclasses
CPT/HCPCS: 73590; 73610; 73630; 96365; J1568; J1642

== ENCOUNTER 2020-08-20 13:34 | Observation (INO) | payer MEDICARE, SELFPAY ==
[2020-08-20] VITALS (18 sets, daily range): BP systolic 97–148; BP diastolic 44–92; PULSE 68–115; RESP 18–22; TEMP 36.7–37; O2SAT 91–100; BMI 35.4; BMI 32.5
--- NOTE | 2020-08-20 13:51 | XR_ITS ---
PROCEDURE: XR CHEST PORTABLE CLINICAL HISTORY: SOB, cough COMPARISON: CT CHESTWO CT chest wo con from 12/18/2018 CR XR CHEST PORTABLE from 02/17/2020 CR XR CHEST 2V from 03/04/2020 CR XR CHEST PORTABLE from 08/11/2020 FINDINGS: The lung dinero are well expanded and appear clear of infiltrate. There is minimal postinflammatory scarring at the left base and left cardiophrenic angle. There is borderline cardiomegaly however the vascularity is normal. There is a MediPort catheter entering the right subclavian vein near the junction with the SVC with the tip in the SVC above the right atrium. There degenerate changes of both shoulders with heterotopic new bone formation seen just at the inferior lip of the glenoid with marked narrowing of the glenohumeral joint. There is multilevel degenerate changes of the thoracic spine with mild dextroscoliotic curvature. IMPRESSION: No acute findings. Dictated by: Dr. Tom Carlton MD 08/20/2020 15:09 Dr. Tom Carlton MD in [place] 08/20/2020 15:09
--- NOTE | 2020-08-20 14:10 | HMH.EDGENADL ---
ED Disposition Clinical Impression: Increased oxygen demand Disposition: Admitted As Inpatient Condition on Discharge: Fair - Critical Care Critical Care Time: No Attestation: On 08/20/20, the high probability of a clinically significant, sudden or life threatening deterioration of the following system(s) required my full and direct attention, intervention and personal management. The time I documented below is in addition to time spent performing reported procedures but includes the following listed in this critical care notation. Medical Decision Making - Medical Records Medical records reviewed: Yes: I reviewed the patient's medical records. - Julius Inquiry Pt receiving controlled substance: No Vital Signs: 08/20/20 13:35 Temperature 98.4 F Temperature Source Oral Pulse Rate [Left Radial] 115 H Respiratory Rate 20 Blood Pressure [Right Arm] 105/87 L Blood Pressure Mean [Right Arm] 93 Blood Pressure Source [Right Arm] Automatic Cuff Blood Pressure Position [Right Arm] Sitting 02 Sat by Pulse Oximetry 96 Oxygen Delivery Method Room Air - Lab Data Lab results reviewed: Yes: I reviewed the patient's lab results. Lab Results 08/20/20 13:51: VBG pH 7.33, VBG pCO2 62.6 H, VBG pO2 95.0 H, VBG HCO3 32.1 H, VBG Total CO2 34.0 H, VBG O2 Saturation 97.0 H, VBG Base Excess 6.1 H 08/20/20 14:30: WBC 10.6, RBC 2.60 L, Hgb 7.8 L*, Hct 25.1 L, MCV 96.6, MCH 30.1, MCHC 31.2 L, RDW 13.6, Plt Count 176, MPV 6.7 L, Neut % (Auto) 80.8 H, Lymph % (Auto) 11.0, [place] % (Auto) 6.2, Eos % (Auto) 1.7, Baso % (Auto) 0.2, Neut # (Auto) 8.5 H, Lymph # (Auto) 1.2, [place] # (Auto) 0.7, Eos # (Auto) 0.2, Baso # (Auto) 0.0 08/20/20 14:30: Sodium 136, Potassium 4.6, Chloride 100, Carbon Dioxide 36 H, Anion Gap 4.6 L, BUN 20 H, Creatinine 1.40 H, Estimated Creat Clear 52, Estimated GFR 37 L, Est GFR ( Amer) 45 L, Glucose 108 H, Calcium 8.1 L, Total Bilirubin 0.5, AST 28, ALT 19, Alkaline Phosphatase 72, Total Protein 6.6, Albumin 3.3 L, Globulin 3.3 H, Albumin/Globulin Ratio 1.0 L Result diagrams: 08/20/20 14:30 08/20/20 14:30 Orders (Tests/Meds): ED MEDICATIONS Generic Name Dose Route Start Last Admin Trade Name Freq PRN Reason Stop Dose Admin Acetaminophen 650 mg 08/20/20 15:08 Acetaminophen 325mg Tab PO 09/19/20 15:07 Q4HP PRN As Needed for Fever or Pain Lactated Ringer's 1,000 mls @ 125 mls/hr 08/20/20 14:00 08/20/20 14:46 Lactated Ringer's 1000 Ml Bag IV 09/19/20 13:59 125 mls/hr .Q8H DARLING Administration Ondansetron HCl 4 mg 08/20/20 15:08 Ondansetron 4mg/2ml Vial IV 09/19/20 15:07 Q8HP PRN Nausea Discontinued Medications Generic Name Dose Route Start Last Admin Trade Name Freq PRN Reason Stop Dose Admin Ketorolac Tromethamine 30 mg 08/20/20 14:50 08/20/20 15:03 Ketorolac 30mg/Ml Vial IV 08/20/20 14:51 15 mg ONCE ONE Administration ORDERS Category Date Time Status Type and Screen Stat BBK 08/20/20 15:25 Received Basic Metabolic Panel [facility] Lab 08/21/20 06:00 Ordered Complete Blood Count Auto Diff [facility] Lab 08/21/20 06:00 Ordered Covid-19 Nasal PCR ([facility]) Routine Lab 08/20/20 14:47 Ordered - Physician Consults Physician Consulted: MD Valentin Reason -: Admission Medical Decision Narrative: Patient is hemodynamically stable and nontoxic, but uncomfortable appearing. Patient presents with worsening shortness of breath in the setting of a recent pneumonia not wearing her trilogy overnight. Labs including CBC, CMP were obtained along with troponins and a chest x-ray. I reviewed patient's labs which demonstrated a hemoglobin of 7.8. This is down from 8.9 on August 14. However, patient does not require transfusion at this time. Patient is normally on 3 L nasal cannula, but is now requiring 5 L for appropriate oxygenation. As such, she will be admitted for further management. General Adult HPI - General Chief complaint: Weakness Stated co
[2020-08-20 14:50] LABS: Basophils % 0.2 % (0.1-2.0); Eosinophils # 0.2 K/mm3 (0.0-0.4); Eosinophils % 1.7 % (0.1-12.0); Hematocrit 25.1 % (37.0-47.0); Lymphocytes # 1.2 K/mm3 (0.7-4.5); Mean Corpuscular HGB Conc 31.2 g/dL (31.8-35.4); Mean Corpuscular Hemoglobin 30.1 pg (27.0-31.2); Mean Corpuscular Volume 96.6 fl (81-99); Mean Platelet Volume 6.7 fl (7.4-10.4); Monocytes # 0.7 K/mm3 (0.1-1.0); Monocytes % 6.2 % (1.7-9.3); Neutrophils # 8.5 K/mm3 (1.8-7.8); Neutrophils % 80.8 % (37.0-80.0); Platelet Count 176 K/mm3 (142-424); Red Cell Distribution Width 13.6 % (11.5-17.5); White Blood Count 10.6 K/mm3 (4.8-10.8)
[2020-08-20 14:54] LABS: Hemoglobin 7.8 g/dL (12.2-16.2)
[2020-08-20 15:09] LABS: Chloride 100 mmol/L (98-107); Sodium 136 mmol/L (136-145)
[2020-08-20 15:10] LABS: Potassium 4.6 mmoL/L (3.5-5.1)
--- NOTE | 2020-08-20 15:10 | PC.NURSE ---
called house to get pt a bed for increased O2 requirment, vidal macias
[2020-08-20 15:12] LABS: Alanine Aminotransferase 19 U/L (12-78); Albumin Level 3.3 g/dl (3.5-5.0); Alkaline Phosphatase 72 U/L (38-126); Anion Gap 4.6 mEq/L (5-15); Aspartate Amino Transferase 28 U/L (14-36); Bilirubin,Total 0.5 mg/dl (0.2-1.3); Blood Urea Nitrogen 20 mg/dl (7-17); Carbon Dioxide 36 mmol/L (22.0-30.0); Creatinine Clearance Estimated 52 mL/min (50-200); Estimated Glomerular Filt Rate 37 ml/min (>60); GFR (African American) 45 ML/MIN (>60); Globulin 3.3 g/dL (1.3-3.2); Total Protein,Serum 6.6 g/dl (6.3-8.2)
[2020-08-20 15:13] LABS: Calcium 8.1 mg/dl (8.4-10.2); Glucose 108 mg/dl (74-100)
[2020-08-20 15:14] LABS: VBG Base Excess 6.1 mmol/L (-2.4-2.3); VBG HCO3 32.1 mmol/L (23-30); VBG PH 7.33 mmol/L (7.31-7.41)
[2020-08-20 15:16] LABS: VBG PCO2 62.6 mmol/L (35-51)
[2020-08-20 17:29] LABS: Adenovirus,PCR Not Detected (NotDetected); Bordetella Pertussis Not Detected (NotDetected); Chlamydophila Pneumoniae, PCR Not Detected (NotDetected); Coronavirus 19, PCR Not Detected (NotDetected); Coronavirus 229E Not Detected (NotDetected); Coronavirus NL63 Not Detected (NotDetected); Coronavirus OC43 Not Detected (NotDetected); Coronovirus HKU1,PCR Not Detected (NotDetected); Human Metapneumovirus Not Detected (NotDetected); Influenza A, PCR Not Detected (NotDetected); Influenza AH1, 2009 Not Detected (NotDetected); Influenza AH1, PCR Not Detected (NotDetected); Influenza AH3,PCR Not Detected (NotDetected); Influenza B, PCR Not Detected (NotDetected); Mycoplasma Pneumoniae, PCR Not Detected (NotDetected); Parainfluenza 1, PCR Not Detected (NotDetected); Parainfluenza 2, PCR Not Detected (NotDetected); Parainfluenza 3, PCR Not Detected (NotDetected); Parainfluenza 4, PCR Not Detected (NotDetected); Respiratory Syncytial Virus Not Detected (NotDetected); Rhinovirus/Enterovirus Not Detected (NotDetected)
--- NOTE | 2020-08-20 17:44 | PC.NURSE ---
Report called to Marj JUNG
--- NOTE | 2020-08-20 17:49 | PC.NURSE ---
MEd req is not completed at this time by myself due to pt medicine changes, daughter is going to get pt new list of medicine and bring back to the hospital for update. PT was dc from the hospital last week and had some medicine change. Marj JUNG aware of this.
--- NOTE | 2020-08-20 18:06 | PC.NURSE ---
Pt arrived to the floor at this time.
[2020-08-21] VITALS (17 sets, daily range): BP systolic 103–141; BP diastolic 56–81; PULSE 64–109; RESP 18–22; TEMP 36.6–37.3; O2SAT 92–99; BMI 33.0
--- NOTE | 2020-08-21 01:56 | PC.NURSE ---
0030 unit 1 transfused, no s/s of transfusion reaction, no complaints of SOA
--- NOTE | 2020-08-21 02:08 | PC.WOUNDNOTE ---
Wound Location: left upper arm Length:2 cm Width: 1.5 cm Depth: Undermining Y/N: Tunneling cm: Granulation %: Slough/necrotic tissue %: Inflammation/swelling Y/N: Pain and/or tenderness Y/N: Exudate: Serosanguinous Sanguinous Serosanguinous Seropurulent Purulent Color: Clear [place] Cloudy/milky [place] Red Green Yellow Brown [place] Blue Consistency: Thick Thin Amount: None Scant Small Moderate Large Odor Y/N:
--- NOTE | 2020-08-21 04:26 | PC.NURSE ---
0415 second unit completed, no s/s of transfusion, no SOA reported
--- NOTE | 2020-08-21 04:32 | PC.NURSE ---
pt is AxOx4, was very fatigued at beginning of shift, after one unit of blood, pt began to become more alert and conversational, has worn trilogy part of shift, and 3L NC the rest of the time, O2 sats 91-100%, HR has been 92-100, no complaints of chest pain and SOA, no N/V/D
[2020-08-21 06:00] LABS: Chloride 100 mmol/L (98-107); Sodium 136 mmol/L (136-145)
[2020-08-21 06:01] LABS: Potassium 4.3 mmoL/L (3.5-5.1)
[2020-08-21 06:02] LABS: Basophils % 0.3 % (0.1-2.0); Eosinophils # 0.1 K/mm3 (0.0-0.4); Eosinophils % 2.2 % (0.1-12.0); Lymphocytes # 1.2 K/mm3 (0.7-4.5); Lymphocytes % 19.5 % (10-50); Mean Corpuscular HGB Conc 31.2 g/dL (31.8-35.4); Mean Corpuscular Hemoglobin 28.9 pg (27.0-31.2); Mean Corpuscular Volume 92.9 fl (81-99); Mean Platelet Volume 6.5 fl (7.4-10.4); Monocytes # 0.6 K/mm3 (0.1-1.0); Monocytes % 8.7 % (1.7-9.3); Neutrophils # 4.4 K/mm3 (1.8-7.8); Neutrophils % 69.3 % (37.0-80.0); Platelet Count 146 K/mm3 (142-424); Red Blood Count 3.18 M/mm3 (4.20-5.40); Red Cell Distribution Width 13.8 % (11.5-17.5); White Blood Count 6.4 K/mm3 (4.8-10.8)
[2020-08-21 06:03] LABS: Blood Urea Nitrogen 20 mg/dl (7-17); Creatinine Clearance Estimated 52 mL/min (50-200); Estimated Glomerular Filt Rate 37 ml/min (>60); GFR (African American) 45 ML/MIN (>60); Hematocrit 29.5 % (37.0-47.0); Hemoglobin 9.2 g/dL (12.2-16.2)
[2020-08-21 06:04] LABS: Anion Gap 5.3 mEq/L (5-15); Calcium 8.1 mg/dl (8.4-10.2); Carbon Dioxide 35 mmol/L (22.0-30.0); Glucose 118 mg/dl (74-100)
--- NOTE | 2020-08-21 08:27 | HMH.HP ---
*Admission Date: 08/20/20 *Chief complaint: Weakness *History of present illness: 74-year-old female with recent hospitalization for pneumonia who on August 19 fell getting out of bed resulting in a right bimalleolar fracture. Patient was evaluated as an outpatient and splinted. On Saturday, August 20 patient noted that she was so weak she had trouble raising her arms. Patient has a history of anemia with incomplete work-up over the years due to either acute exacerbations of chronic medical conditions or the coronavirus pandemic. Patient presented to the emergency department and was found to be anemic. Decision was made to admit the patient for IV fluids and transfusion. Patient 2 units of packed red blood cells and notes improved strength this morning. It is likely acute blood loss from her tib-fib fracture is what worsened her chronic anemia. Patient had associated shortness of breath and has known COPD. She has maintained O2 sats in the mid to high 90s with supplemental oxygen. She reports pain from her right tib-fib fracture is tolerable and she has not required any narcotic pain medicine as of yet although has oral Percocet ordered [facility] History I have reviewed the patient's past medical history: Yes Medical History: Reports:: Anxiety, Arrhythmia, Atrial Fibrillation, Cardiomyopathy, Congestive Heart Failure, Chronic Obstructive Pulmonary Disease (COPD), Congenital Heart Disease, Coronary Artery Disease, Deep Vein Thrombosis, Gastroesophageal Reflux Disease(GERD), Hyperlipidemia, Hypertension, MRSA, Myocardial Infarction, Palpitations, Valvular Heart Disease Denies:: Cancer, Diabetes Mellitus Type 1, Diabetes Mellitus Type 2, Internal Pacemaker *Have you ever received a pneumonia vaccine?: Yes *Have you received a flu vaccine this season?: Yes Other Medical History: Reports: Anemia, Arthritis, Cataracts, Fibromyalgia, Hypothyroidism, Sinus Problems, Thyroid Disease Laterality Cases: Left: Arthroscopy Hip, Right: Carpal Tunnel Release Other Surgeries: Yes: Appendectomy, Cardiac Catheterization, Cholecystectomy, Colonoscopy, Hysterectomy-Total, Tubal Ligation, Other. No: Pacemaker Amputation: No Fractures: Yes - *Social History Smoking Status: Former smoker Tobacco Type: cigarettes # Packs/Day (cigarettes): 1 #Yrs smoked (if former smoker): 40 Alcohol Intake: never Substance Use Type: denies use *Occupational Status:: disabled Housing: house Household Members: family, children *Travel in the last 8 weeks: None - Psychiatric History Pschychiatric History:: Reports:: Anxiety Family Hx:: Diabetes, Hyperlipidemia, Hypertension Review of Systems - Constitutional Reports lack of energy, Denies anorexia, Denies body ache(s), Denies chills - Eyes Denies change in vision, Denies loss of vision - ENT Denies difficulty swallowing - *Cardiovascular Denies chest pain, Denies chest pain at rest, Denies shortness of breath with activity - *Respiratory Reports chest congestion, Reports shortness of breath, Reports shortness of breath with activity, Reports pain on inspiration, Denies cough - *Gastrointestinal Denies abdominal pain, Denies cramping - *Genitourinary Denies side pain - *Musculoskeletal Reports joint pain, Reports decreased muscle mass, Reports limited joint movement - Integumentary/Breasts Denies bleeding lesions - *Neurologic Reports abnormal walking - Psychiatric Reports abnormal sleep pattern, Reports lack of enjoyment, Reports anxiety Meds Home Medications Medication Instructions Recorded Confirmed Type Albuterol Sulfate [Albuterol 2.5 mg IH Q6HP PRN 05/24/17 08/20/20 History 0.083% 2.5mg/3mL neb] Budesonide/Formoterol Fumarate 2 puffs IH BID 05/24/17 08/20/20 History [Symbicort 160-4.5 Mcg Inhaler] Pilocarpine HCl [Salagen] 7.5 mg PO TIDP PRN 05/24/17 08/20/20 History Tiotropium [place] [Spiriva 1 puff IH DAILY 09/15/18 08/20/20 History 18mcg/puff inhaler] Pantoprazole Sodium [Pr
--- NOTE | 2020-08-21 14:19 | P.CONPHA_ITS ---
[facility] Pharmacy VTE Monitoring - Patient Demographics Admission date: 08/20/20 Report Date: 08/21/20 Time: 14:19 Allergies/Adverse Reactions: Patient Allergies hydrocodone [HYDROCODONE] Allergy (Severe, Verified 08/19/20 15:53) dizziness, n/v codeine [CODEINE] Allergy (Intermediate, Verified 08/19/20 15:53) dizziness. n/v Sulfa (Sulfonamide Antibiotics) [SULFA (SULFONAMIDE ANTIBIOTICS)] Adverse Reaction (Mild, Verified 08/19/20 15:53) n/v Height: 1.65 m Weight: 89.925 kg Patient Problems: Current Active Problems Rheumatoid arthritis (Acute) Increased oxygen demand (Acute) Symptomatic anemia (Acute) Anemia due to blood loss, acute (Acute) Bimalleolar fracture of right ankle (Acute) Very severe chronic obstructive pulmonary disease (Acute) Dependence on supplemental oxygen (Acute) IgG subclass deficiency (Acute) Chronic respiratory failure (Acute) HLD (hyperlipidemia) (Chronic) HHD (hypertensive heart disease) (Chronic) - VTE Risk Labs: VTE Related Lab Results Hgb 9.2 g/dL (12.2-16.2) L D 08/21/20 05:30 Hct 29.5 % (37.0-47.0) L 08/21/20 05:30 Plt Count 146 K/mm3 (142-424) 08/21/20 05:30 BUN 20 mg/dl (7-17) H 08/21/20 05:30 Creatinine 1.40 mg/dl (0.52-1.04) H 08/21/20 05:30 Estimated Creat Clear 52 mL/min (50-200) 08/21/20 05:30 VTE Score: 11 VTE Risk Level: Moderate Risk - Prophylaxis VTE Prophylaxis Ordered?: Yes Types of VTE Prophylaxis: Pharmacological Pharmacologic Type: Enoxaparin
--- NOTE | 2020-08-21 17:28 | PC.NURSE ---
Pt has been pleasant this shift. Pt has been on 2L NC and has tolerated appropriately w/ o2 sats >90%. Pt c/o SOB x1 this shift and was given PRN duoneb w/ favorable results. Pt received a bath this shift and has been UTC since. No other acute changes or complaints at this time.
[2020-08-21 18:08] LABS: Hematocrit 29.2 % (37.0-47.0); Hemoglobin 9.4 g/dL (12.2-16.2)
[2020-08-22] VITALS (8 sets, daily range): BP systolic 123–139; BP diastolic 59–82; PULSE 80–110; RESP 18–22; TEMP 36.7–37.1; O2SAT 95–98; BMI 32.8; BMI 32.6
--- NOTE | 2020-08-22 05:40 | PC.NURSE ---
pt has been up in chair some this shift, has remained on 3L NC or trilogy t/o shift with o2 sats 96-98%, expiratory rhonchi noted, no complaints of SOA or chest pain
[2020-08-22 07:05] LABS: Basophils % 0.3 % (0.1-2.0); Eosinophils # 0.2 K/mm3 (0.0-0.4); Eosinophils % 2.8 % (0.1-12.0); Hematocrit 29.7 % (37.0-47.0); Hemoglobin 9.3 g/dL (12.2-16.2); Lymphocytes # 1.5 K/mm3 (0.7-4.5); Lymphocytes % 22.9 % (10-50); Mean Corpuscular HGB Conc 31.4 g/dL (31.8-35.4); Mean Corpuscular Hemoglobin 29.6 pg (27.0-31.2); Mean Corpuscular Volume 94.2 fl (81-99); Mean Platelet Volume 6.8 fl (7.4-10.4); Monocytes # 0.5 K/mm3 (0.1-1.0); Monocytes % 7.4 % (1.7-9.3); Neutrophils # 4.3 K/mm3 (1.8-7.8); Neutrophils % 66.7 % (37.0-80.0); Platelet Count 172 K/mm3 (142-424); Red Blood Count 3.16 M/mm3 (4.20-5.40); Red Cell Distribution Width 13.7 % (11.5-17.5); White Blood Count 6.4 K/mm3 (4.8-10.8)
--- NOTE | 2020-08-22 07:29 | P.PN_ITS ---
Internal Medicine - PN: Subj *Date: 08/22/20 *Time: 07:29 Interval history: No events overnight Exam Vital signs and Labs for Last 24 Hours: Temp Pulse Resp BP Pulse Ox 98.1 F 85 20 123/66 98 08/22/20 04:00 08/22/20 06:20 08/22/20 04:00 08/22/20 04:00 08/22/20 04:00 Laboratory Results - last 24 hr 08/21/20 17:57: Hgb 9.4 L, Hct 29.2 L 08/22/20 06:55: WBC 6.4, RBC 3.16 L, Hgb 9.3 L, Hct 29.7 L, MCV 94.2, MCH 29.6, MCHC 31.4 L, RDW 13.7, Plt Count 172, MPV 6.8 L, Neut % (Auto) 66.7, Lymph % (Auto) 22.9, [place] % (Auto) 7.4, Eos % (Auto) 2.8, Baso % (Auto) 0.3, Neut # (Auto) 4.3, Lymph # (Auto) 1.5, [place] # (Auto) 0.5, Eos # (Auto) 0.2, Baso # (Aut o) 0.0 I & O for Last 24 hours: Intake & Output 08/19/20 08/20/20 08/21/20 08/22/20 11:59 11:59 11:59 11:59 Intake Total 734 / 734 720 / 720 Output Total 200 / 200 Balance 534 / 534 720 / 720 Weight 198 lb 4 oz 197 lb 2 oz Narrative: Patient appears at baseline. Lungs are distant. Heart has a regular rate and rhythm. Abdomen is soft. Right lower extremity remains in a posterior splint. Assessment and Plan (1) Symptomatic anemia Status: Acute Category: Medical Code(s): D64.9 - Anemia, unspecified (2) Anemia due to blood loss, acute Status: Acute Category: Medical Code(s): D62 - Acute posthemorrhagic anemia (3) Bimalleolar fracture of right ankle Status: Acute Category: Medical Code(s): S82.841A - Displaced bimalleolar fracture of right lower leg, initial encounter for closed fracture (4) Chronic respiratory failure Status: Acute Category: Medical Code(s): J96.10 - Chronic respiratory failure, unspecified whether with hypoxia or hypercapnia (5) Dependence on supplemental oxygen Status: Acute Category: Medical Code(s): Z99.81 - Dependence on supplemental oxygen (6) IgG subclass deficiency Status: Acute Category: Medical Code(s): D80.3 - Selective deficiency of immunoglobulin G [IgG] subclasses (7) Rheumatoid arthritis Status: Acute Category: Medical Code(s): M06.9 - Rheumatoid arthritis, unspecified (8) Very severe chronic obstructive pulmonary disease Status: Acute Category: Medical Code(s): J44.9 - Chronic obstructive pulmonary disease, unspecified (9) HHD (hypertensive heart disease) Status: Chronic Qualifiers: Category: Medical Code(s): I11.9 - Hypertensive heart disease without heart failure (10) HLD (hyperlipidemia) Status: Chronic Qualifiers: Category: Medical Code(s): E78.5 - Hyperlipidemia, unspecified - Assessment and plan all Dx Assessment and Plan for all problems:: 1. PT eval today 2. Care management consulted for assistance with placement for alf and rehab
[2020-08-22 07:41] LABS: Chloride 101 mmol/L (98-107); Sodium 137 mmol/L (136-145)
[2020-08-22 07:42] LABS: Potassium 4.3 mmoL/L (3.5-5.1)
[2020-08-22 07:44] LABS: Blood Urea Nitrogen 16 mg/dl (7-17); Creatinine Clearance Estimated 48 mL/min (50-200); Estimated Glomerular Filt Rate 34 ml/min (>60); GFR (African American) 41 ML/MIN (>60)
[2020-08-22 07:45] LABS: Anion Gap 7.3 mEq/L (5-15); Calcium 8.1 mg/dl (8.4-10.2); Carbon Dioxide 33 mmol/L (22.0-30.0); Glucose 107 mg/dl (74-100)
--- NOTE | 2020-08-22 09:40 | SW/DCPLANNER ---
Addendum entered by Beti Wilson 08/24/20 09:14: PATIENT HAS BEEN APPROVED BY INSURANCE TO GO TO [facility] AND DR REID, PATIENT AND ATTEMPTED CALL DAUGHTERS BUT HAD TO LEAVE A MESSAGE.... Addendum entered by Beti Wilson 08/23/20 07:15: RILEY CAME TO DO AN ON SITE VISIT AND SAID IT HAS BEEN SENT TO THE INSURANCE COMPANY TO SEE IF THEY WILL APPROVE HER TO GO TO [facility]... WAITING ON RETURN CALL... Addendum entered by Beti Wilson 08/22/20 14:59: FAXED ALL PATIENT INFORMATION TO [facility] AND WAITING ON A RETURN CALL TO WHETHER SHE IS ACCEPTED OR NOT.. HER [employer] REQUIRES AN AUTHORIZATION.... Original Note: PATIENT DISCHARGED ON OF LAST WEEK AND PRESENTS BACK IN AFTER FALLING OUT OF BED RESULTING A RIGHT BIMALLEOLAR FX.. SHE WAS EVALUATED AN OUTPATIENT AND SPLINTED..FAMILY STATES THEY CAN NOT TAKE CARE OF HER AT THIS TIME AND WANT HER PLACED.. PATIENT WISHES TO GO TO [facility], ONCE PT DOES HER EVAL I WILL SEND IT AND SEE IF THEY CAN ACCEPT HER [facility], IF NOT WE MAY HAVE TO LOOK SOMEWHERE ELSE.... WAITING TO HEAR BACK..
--- NOTE | 2020-08-22 11:03 | HMH.PTEV ---
Physical Therapy Evaluation Rehab PT IP Evaluation Start: 08/20/20 19:19 Freq: ONCE Status: Active Protocol: Document 08/22/20 10:00 [facility] (Rec: 08/22/20 11:03 [facility] [id number]) Subjective/History History History 74 yowf adm to [facility] S/P fall out of bed at home with resulting R bi-malleolar fx. She reports she uses w/c for primary mobility at home and lives with her daughter currently. Subjective Subjective Pt c/o pain in the R ankle. Rehab PT IP Eval Objective Appearance Patient Behavior Appropriate Patient Orientation Person,Place,Time Difficulty following instructions none Speech Pattern Clear Ambulation Patient Able to Ambulate Yes Ambulation Observation IP General Gait Pattern Observation Decrease Weight Bear (R) Ambulation Distance (feet) 5 Ambulation Assistive Device Standard Walker Ambulation Ability Minimal x 1 (25% assist) Balance Ability to Arise Able, uses arms to help Sitting Balance Steady, safe Standing Balance Narrow stance w/o support Dynamic Sitting Balance Ability Good Dynamic Standing Balance Ability Fair Transfers Bed Transfer Ability Contact Guard/Hand Hold Chair Transfer Ability Minimal x 1 (25% assist) Sit to Stand Bed Transfer Ability Contact Guard/Hand Hold Sit to Stand Chair Transfer Ability Minimal x 1 (25% assist) ROM All Extremities PT ROM Status WFL Abnormal ROM Comment except R ankle NT MMT All Extremities PT MMT WFL Abnormal MMT Grade except R ankle NT Rehab PT IP prob,goals,plan Problems Date of Evaluation: 08/22/20 PT IP Problems Bed Mobility,Transfers,Gait Rehab Potential Rehab Potential Good Equipment Needs Assistive Devices Rolling / Wheeled Walker Plan PT Intervention Plan Bed Mobility,Transfers,Gait, Therapeutic Exercise PT Plan Frequency BID Duration LOS Discharge Goals Bed Transfer Ability Contact Guard/Hand Hold Sit to Stand Chair Transfer Ability Contact Guard/Hand Hold Ambulation Assistive Device Rolling Walker Ambulation Distance (feet) 10 Discharge Plan PT Discharge Plan Pt is most appropriate for rehab placement at this time. G -code Required No Eval Complexity Eval Charge Codes 53105 - Moderate Complexity PHYSICIAN CERTIFICATION: I certify the s
--- NOTE | 2020-08-22 13:50 | HMH.OTEV ---
OT Inpatient Evaluation Rehab OT IP Evaluation Start: 08/22/20 09:59 Freq: ONCE Status: Complete Protocol: Document 08/22/20 13:44 [facility] (Rec: 08/22/20 13:50 [facility] [id number]) Rehab OT IP Assessment Subjective History Pt oriented x 3 on arrival. Pt agreeable to engage in therapy evaluation. Pt reports she fell out of bed which resulted in a R bi- malleola fx. Pt lives with her daugther. Pt claims she is independent with all ADLs. Pt does use wheelchair majority of the time, but she is able to transfer herself from one surface to another independently. Subjective I just have to take my time. Objective Patient Orientation Person,Place,Birthday Upper Extremity Gross ROM WFL Transfer Training Sit/Stand Transfer,Sit/Stand/ Pivot Transfer Assist Level Minimal x 1 (25% assist) Chair Transfer Assistive Devices Rolling Walker Lower Body Dressing Ability Standby Assistance Rehab OT IP prob,goals,plan Problems Date of Evaluation: 08/22/20 OT IP Problems Bed Mobility,Transfers,Gait, Balance,Self care,Safety Rehab Potential Rehab Potential Good Equipment Needs Assistive Devices Rolling / Wheeled Walker Plan OT intervention Plan Bed Mobility,Transfers,Gait, Balance,Self care,Safety, Therapeutic Exercise OT Plan Frequency BID Duration LOS Discharge Goals Bed Mobility Ability Standby Assistance Sit to Stand Chair Transfer Ability Contact Guard/Hand Hold Chair Transfer Ability Contact Guard/Hand Hold Chair Transfer Technique Sit to/from Ambulatory Chair Transfer Assistive Devices Rolling Walker Self care skills fully toilet trained,dressing/ undressing independently,uses utensils to feed self Feeding Ability Independent Lower Body Dressing Ability Standby Assistance Upper Body Dressing Ability Standby Assistance Bathing Ability Standby Assistance Performing Toilet Hygiene Ability Standby Assistance Overall Commode/Toilet Transfer Ability Standby Assistance Commode/Toilet Transfer Technique Sit to/from Ambulatory Discharge Plan OT Discharge Plan Pt would benefit most from short ter
--- NOTE | 2020-08-22 16:30 | PC.NURSE ---
Pt has been pleasant and cooperative this shift. A&O X4. Pt has complained of pain X1 and received Percocet per MAR with favorable results. No complaints of SOA. Pt is receiving O2 via NC @ 3 LPM with sats. >90%. Lung sounds are diminished. No edema noted. Skin tear noted to LUE with a dressing that is C/D/I. Splint/NEO wrap in place to RLE. Pt transfers with a walker and assistance X1. Pt worked with PT/OT this shift and is currently sitting up in the recliner. Pt uses the BSC to void clear, yellow urine without issue. 1 small, soft, brown BM this shift. RT chest wall port is patent and SL. VSS. Call light within reach.
[2020-08-23] VITALS (10 sets, daily range): BP systolic 129–162; BP diastolic 71–82; PULSE 92–102; RESP 19–22; TEMP 36.6–37; O2SAT 94–97; BMI 32.8
[2020-08-23 06:27] LABS: Chloride 102 mmol/L (98-107)
[2020-08-23 06:28] LABS: Basophils % 0.4 % (0.1-2.0); Eosinophils # 0.2 K/mm3 (0.0-0.4); Eosinophils % 2.2 % (0.1-12.0); Hematocrit 29.5 % (37.0-47.0); Hemoglobin 9.5 g/dL (12.2-16.2); Lymphocytes # 1.2 K/mm3 (0.7-4.5); Lymphocytes % 16.6 % (10-50); Mean Corpuscular HGB Conc 32.3 g/dL (31.8-35.4); Mean Corpuscular Hemoglobin 30.3 pg (27.0-31.2); Mean Corpuscular Volume 93.7 fl (81-99); Mean Platelet Volume 6.8 fl (7.4-10.4); Monocytes # 0.3 K/mm3 (0.1-1.0); Monocytes % 4.8 % (1.7-9.3); Neutrophils # 5.4 K/mm3 (1.8-7.8); Platelet Count 182 K/mm3 (142-424); Potassium 4.3 mmoL/L (3.5-5.1); Red Blood Count 3.15 M/mm3 (4.20-5.40); Red Cell Distribution Width 13.7 % (11.5-17.5); Sodium 135 mmol/L (136-145); White Blood Count 7.1 K/mm3 (4.8-10.8)
[2020-08-23 06:31] LABS: Anion Gap 7.3 mEq/L (5-15); Blood Urea Nitrogen 17 mg/dl (7-17); Calcium 8.3 mg/dl (8.4-10.2); Carbon Dioxide 30 mmol/L (22.0-30.0); Creatinine Clearance Estimated 51 mL/min (50-200); Estimated Glomerular Filt Rate 37 ml/min (>60); GFR (African American) 45 ML/MIN (>60); Glucose 125 mg/dl (74-100)
--- NOTE | 2020-08-23 07:18 | HMH.ACPN2 ---
Internal Medicine - PN: Subj *Date: 08/23/20 *Time: 07:18 Interval history: Patient has no new complaints. She did require a single dose of Percocet yesterday to relieve pain in the ankle. Exam Vital signs and Labs for Last 24 Hours: Temp Pulse Resp BP Pulse Ox 98.6 F 96 H 20 162/76 H 96 08/23/20 04:00 08/23/20 06:15 08/23/20 07:00 08/23/20 04:00 08/23/20 04:00 Laboratory Results - last 24 hr 08/22/20 06:55: WBC 6.4, RBC 3.16 L, Hgb 9.3 L, Hct 29.7 L, MCV 94.2, MCH 29.6, MCHC 31.4 L, RDW 13.7, Plt Count 172, MPV 6.8 L, Neut % (Auto) 66.7, Lymph % (Auto) 22.9, [place] % (Auto) 7.4, Eos % (Auto) 2.8, Baso % (Auto) 0.3, Neut # (Auto) 4.3, Lymph # (Auto) 1.5, [place] # (Auto) 0.5, Eos # (Auto) 0.2, Baso # (Auto) 0.0 08/22/20 06:55: Sodium 137, Potassium 4.3, Chloride 101, Carbon Dioxide 33 H, Anion Gap 7.3, BUN 16, Creatinine 1.50 H, Estimated Creat Clear 48, Estimated GFR 34 L, Est GFR ( Amer) 41 L, Glucose 107 H, Calcium 8.1 L 08/23/20 06:03: WBC 7.1, RBC 3.15 L, Hgb 9.5 L, Hct 29.5 L, MCV 93.7, MCH 30.3, MCHC 32.3, RDW 13.7, Plt Count 182, MPV 6.8 L, Neut % (Auto) 76.0, Lymph % (Auto) 16.6, [place] % (Auto) 4.8, Eos % (Auto) 2.2, Baso % (Auto) 0.4, Neut # (Auto) 5.4, Lymph # (Auto) 1.2, [place] # (Auto) 0.3, Eos # (Auto) 0.2, Baso # (Auto) 0.0 04/06/21 06:03: Sodium 135 L, Potassium 4.3, Chloride 102, Carbon Dioxide 30, Anion Gap 7.3, BUN 17, Creatinine 1.40 H, Estimated Creat Clear 51, Estimated GFR 37 L, Est GFR ( Amer) 45 L, Glucose 125 H, Calcium 8.3 L I & O for Last 24 hours: Intake & Output 08/20/20 08/21/20 08/22/20 08/23/20 11:59 11:59 11:59 11:59 Intake Total 734 / 734 960 / 960 600 / 600 Output Total 200 / 200 Balance 534 / 534 960 / 960 599 / 599 Weight 198 lb 4 oz 197 lb 2 oz 197 lb Narrative: Patient looks well. Lungs remain distant with occasional scattered expiratory wheeze which is her baseline. Heart has a regular rate and rhythm Assessment and Plan (1) Symptomatic anemia Status: Acute Category: Medical Code(s): D64.9 - Anemia, unspecified (2) Anemia due to blood loss, acute Status: Acute Category: Medical Code(s): D62 - Acute posthemorrhagic anemia (3) Bimalleolar fracture of right ankle Status: Acute Category: Medical Code(s): S82.841A - Displaced bimalleolar fracture of right lower leg, initial encounter for closed fracture (4) Chronic respiratory failure Status: Acute Category: Medical Code(s): J96.10 - Chronic respiratory failure, unspecified whether with hypoxia or hypercapnia (5) Dependence on supplemental oxygen Status: Acute Category: Medical Code(s): Z99.81 - Dependence on supplemental oxygen (6) IgG subclass deficiency Status: Acute Category: Medical Code(s): D80.3 - Selective deficiency of immunoglobulin G [IgG] subclasses (7) Rheumatoid arthritis Status: Acute Category: Medical Code(s): M06.9 - Rheumatoid arthritis, unspecified (8) Very severe chronic obstructive pulmonary disease Status: Acute Category: Medical Code(s): J44.9 - Chronic obstructive pulmonary disease, unspecified (9) HHD (hypertensive heart disease) Status: Chronic Qualifiers: Category: Medical Code(s): I11.9 - Hypertensive heart disease without heart failure (10) HLD (hyperlipidemia) Status: Chronic Qualifiers: Category: Medical Code(s): E78.5 - Hyperlipidemia, unspecified - Assessment and plan all Dx Assessment and Plan for all problems:: 1. Anemia remained stable 2. Patient is participating with physical therapy. She has been evaluated by [facility] and we are awaiting precertification for possible transfer to that facility to continue rehabilitation. 3. Patient has follow-up with orthopedist on Saturday
--- NOTE | 2020-08-23 07:20 | HMH.DCSUM ---
General - General Admission date:: 08/20/20 Discharge date: 08/23/20 HPI HPI: 74-year-old female with recent hospitalization for pneumonia who on August 19 fell getting out of bed resulting in a right bimalleolar fracture. Patient was evaluated as an outpatient and splinted. On Saturday, August 20 patient noted that she was so weak she had trouble raising her arms. Patient has a history of anemia with incomplete work-up over the years due to either acute exacerbations of chronic medical conditions or the coronavirus pandemic. Patient presented to the emergency department and was found to be anemic. Decision was made to admit the patient for IV fluids and transfusion. Patient 2 units of packed red blood cells and notes improved strength this morning. It is likely acute blood loss from her tib-fib fracture is what worsened her chronic anemia. Patient had associated shortness of breath and has known COPD. She has maintained O2 sats in the mid to high 90s with supplemental oxygen. She reports pain from her right tib-fib fracture is tolerable and she has not required any narcotic pain medicine as of yet although has oral Percocet ordered Hospital Course Hospital Course: Patient was admitted with worsening anemia. Patient has known chronic anemia but it was felt that blood loss due to her ankle fracture had resulted in worsening of her anemia. Patient was admitted and transfused 2 units of packed red blood cells with appropriate response in her hemoglobin to 9.5. Patient had recent bimalleolar fracture for which she is in a posterior splint due to swelling. Patient was having difficulty with ADLs at home and lacked assistance. PT evaluated the patient and felt she was appropriate for placement into rehab facility. Patient participated with physical therapy daily. Home medicines were continued during hospitalization. Objective Vital signs: Temp Pulse Resp BP Pulse Ox 98.6 F 96 H 20 162/76 H 96 08/23/20 04:00 08/23/20 06:15 08/23/20 07:00 08/23/20 04:00 08/23/20 04:00 Results Labs on day of discharge: Labs from last 24 hours 08/23/20 08/23/20 08/22/20 06:03 06:03 06:55 WBC 7.1 RBC 3.15 L Hgb 9.5 L Hct 29.5 L MCV 93.7 MCH 30.3 MCHC 32.3 RDW 13.7 Plt Count 182 MPV 6.8 L Neut % (Auto) 76.0 Lymph % (Auto) 16.6 [place] % (Auto) 4.8 Eos % (Auto) 2.2 Baso % (Auto) 0.4 Neut # (Auto) 5.4 Lymph # (Auto) 1.2 [place] # (Auto) 0.3 Eos # (Auto) 0.2 Baso # (Auto) 0.0 Sodium 135 L 137 Potassium 4.3 4.3 Chloride 102 101 Carbon Dioxide 30 33 H Anion Gap 7.3 7.3 BUN 17 16 Creatinine 1.40 H 1.50 H Estimated Creat Clear 51 48 Estimated GFR 37 L 34 L Est GFR ( Amer) 45 L 41 L Glucose 125 H 107 H Calcium 8.3 L 8.1 L 08/22/20 06:55 WBC 6.4 RBC 3.16 L Hgb 9.3 L Hct 29.7 L MCV 94.2 MCH 29.6 MCHC 31.4 L RDW 13.7 Plt Count 172 MPV 6.8 L Neut % (Auto) 66.7 Lymph % (Auto) 22.9 [place] % (Auto) 7.4 Eos % (Auto) 2.8 Baso % (Auto) 0.3 Neut # (Auto) 4.3 Lymph # (Auto) 1.5 [place] # (Auto) 0.5 Eos # (Auto) 0.2 Baso # (Auto) 0.0 Sodium Potassium Chloride Carbon Dioxide Anion Gap BUN Creatinine Estimated Creat Clear Estimated GFR Est GFR ( Amer) Glucose Calcium DS: Diagnosis - Discharge Diagnosis (1) Symptomatic anemia Status: Acute (2) Anemia due to blood loss, acute Status: Acute (3) Bimalleolar fracture of right ankle Status: Acute (4) Chronic respiratory failure Status: Acute (5) Dependence on supplemental oxygen Status: Acute (6) IgG subclass deficiency Status: Acute (7) Rheumatoid arthritis Status: Acute (8) Very severe chronic obstructive pulmonary disease Status: Acute (9) HHD (hypertensive heart disease) Status: Chronic (10) HLD (hyperlipidemia) Status: Chronic Discharge Plan
--- NOTE | 2020-08-23 07:28 | PC.NURSE ---
pt used trilogy throughout night with no issues. 3LNC at this time. pt sitting in chair and slept off and on throughout the night. nonweight bearing to right leg. uses walker as needed. vss. call light in reach. will continue to monitor
--- NOTE | 2020-08-23 11:09 | PC.NURSE ---
1045 PT in with pt at this time, stepped out of room and reported pt c/o SOA and sharp chest pain when she stood up and braced her weight on the walker. Pt was assisted back to a seated position by PT. VS obtained. Pt c/o increasing chest pain when she puts her weight on her arms while standing. Pt reports it feels like my chest is caving in. Will notify MD for any new orders. 1100 Assisted pt with ambulating to [facility] to void, tolerated activity well. Pt continues to c/o chest pain when she puts her weight on her arms but reports improvement in SOA. Pt denies any pain when she is seated in her chair, call light within reach, will continue to monitor.
--- NOTE | 2020-08-23 15:14 | PC.NURSE ---
1513 RN reassessment completed at this time. Pt has spent entire shift up in the chair, talking with a visitor at this time. A & O X4. Pt continues to complain of discomfort in her chest with forceful movement of her arms or when putting weight on her arms. Medicated with tylenol per EMAR as requested by pt, will continue to monitor. Expiratory rhonchi heard throughout lung dinero, pt denies any difficulty breathing. 3L humidified O2 in place via NC. Intermittent, non-productive cough noted. Pt is tolerating regular diet well with BS active in all quads. Splint remains in place to RLE. Pt denies any needs, call light within reach. Will continue to monitor.
[2020-08-24 03:55] VITALS: BP 150/71; PULSE 88; RESP 20; TEMP 36.8; O2SAT 97
[2020-08-24 05:07] VITALS: BMI 32.8
[2020-08-24 06:30] VITALS: PULSE 86; PULSE 88
[2020-08-24 06:52] LABS: Basophils % 0.5 % (0.1-2.0); Eosinophils # 0.2 K/mm3 (0.0-0.4); Eosinophils % 2.9 % (0.1-12.0); Hematocrit 31.1 % (37.0-47.0); Hemoglobin 10.2 g/dL (12.2-16.2); Lymphocytes # 1.5 K/mm3 (0.7-4.5); Lymphocytes % 18.7 % (10-50); Mean Corpuscular HGB Conc 32.8 g/dL (31.8-35.4); Mean Corpuscular Hemoglobin 30.5 pg (27.0-31.2); Mean Corpuscular Volume 93.2 fl (81-99); Mean Platelet Volume 7.1 fl (7.4-10.4); Monocytes # 0.4 K/mm3 (0.1-1.0); Monocytes % 5.7 % (1.7-9.3); Neutrophils # 5.7 K/mm3 (1.8-7.8); Neutrophils % 72.3 % (37.0-80.0); Platelet Count 199 K/mm3 (142-424); Red Blood Count 3.34 M/mm3 (4.20-5.40); Red Cell Distribution Width 13.6 % (11.5-17.5); White Blood Count 7.8 K/mm3 (4.8-10.8)
[2020-08-24 06:58] LABS: Chloride 103 mmol/L (98-107); Potassium 4.5 mmoL/L (3.5-5.1); Sodium 139 mmol/L (136-145)
[2020-08-24 07:01] LABS: Anion Gap 9.5 mEq/L (5-15); Blood Urea Nitrogen 20 mg/dl (7-17); Calcium 8.7 mg/dl (8.4-10.2); Carbon Dioxide 31 mmol/L (22.0-30.0); Creatinine Clearance Estimated 51 mL/min (50-200); Estimated Glomerular Filt Rate 37 ml/min (>60); GFR (African American) 45 ML/MIN (>60); Glucose 98 mg/dl (74-100)
--- NOTE | 2020-08-24 07:08 | HMH.ACPN2 ---
Internal Medicine - PN: Subj *Date: 08/24/20 *Time: 07:08 Interval history: Patient did have chest pain yesterday when trying to participate with physical therapy. She repeatedly shows me this morning that abduction of the shoulders and using a pressing movement aggravates her chest. Chest pain did not radiate. There is no associated shortness of breath. Exam Vital signs and Labs for Last 24 Hours: Temp Pulse Resp BP Pulse Ox 98.2 F 88 20 150/71 H 97 08/24/20 03:55 08/24/20 06:30 08/24/20 03:55 08/24/20 03:55 08/24/20 03:55 Laboratory Results - last 24 hr 08/24/20 06:30: WBC 7.8, RBC 3.34 L, Hgb 10.2 L, Hct 31.1 L, MCV 93.2, MCH 30.5, MCHC 32.8, RDW 13.6, Plt Count 199, MPV 7.1 L, Neut % (Auto) 72.3, Lymph % (Auto) 18.7, [place] % (Auto) 5.7, Eos % (Auto) 2.9, Baso % (Auto) 0.5, Neut # (Auto) 5.7, Lymph # (Auto) 1.5, [place] # (Auto) 0.4, Eos # (Auto) 0.2, Baso # (Auto) 0.0 08/24/20 06:30: Sodium 139, Potassium 4.5, Chloride 103, Carbon Dioxide 31 H, Anion Gap 9.5, BUN 20 H, Creatinine 1.40 H, Estimated Creat Clear 51, Estimated GFR 37 L, Est GFR ( Amer) 45 L, Glucose 98, Calcium 8.7 I & O for Last 24 hours: Intake & Output 08/21/20 08/22/20 08/23/20 08/24/20 11:59 11:59 11:59 11:59 Intake Total 734 / 734 960 / 960 960 / 960 1320 / 1320 Output Total 200 / 200 50 / 50 Balance 534 / 534 960 / 960 959 / 959 1270 / 1270 Weight 198 lb 4 oz 197 lb 2 oz 197 lb 197 lb 7 oz Narrative: Patient looks comfortable. Lungs remain distant with occasional scattered expiratory wheeze. Heart has a regular rate and rhythm. Patient has sternal and pectoral tenderness in the chest. Abdomen is soft. Right lower extremity remains splinted Assessment and Plan (1) Symptomatic anemia Status: Acute Category: Medical Code(s): D64.9 - Anemia, unspecified (2) Anemia due to blood loss, acute Status: Acute Category: Medical Code(s): D62 - Acute posthemorrhagic anemia (3) Bimalleolar fracture of right ankle Status: Acute Category: Medical Code(s): S82.841A - Displaced bimalleolar fracture of right lower leg, initial encounter for closed fracture (4) Chronic respiratory failure Status: Acute Category: Medical Code(s): J96.10 - Chronic respiratory failure, unspecified whether with hypoxia or hypercapnia (5) Dependence on supplemental oxygen Status: Acute Category: Medical Code(s): Z99.81 - Dependence on supplemental oxygen (6) IgG subclass deficiency Status: Acute Category: Medical Code(s): D80.3 - Selective deficiency of immunoglobulin G [IgG] subclasses (7) Rheumatoid arthritis Status: Acute Category: Medical Code(s): M06.9 - Rheumatoid arthritis, unspecified (8) Very severe chronic obstructive pulmonary disease Status: Acute Category: Medical Code(s): J44.9 - Chronic obstructive pulmonary disease, unspecified (9) HHD (hypertensive heart disease) Status: Chronic Qualifiers: Category: Medical Code(s): I11.9 - Hypertensive heart disease without heart failure (10) HLD (hyperlipidemia) Status: Chronic Qualifiers: Category: Medical Code(s): E78.5 - Hyperlipidemia, unspecified - Assessment and plan all Dx Assessment and Plan for all problems:: 1. We are awaiting precertification confirmation from her insurance for transfer to half-way facility. Medically patient is stable and appropriate for discharge from the hospital.
[2020-08-24 07:40] VITALS: BP 143/70; PULSE 93; RESP 18; TEMP 36.7; O2SAT 92
--- NOTE | 2020-08-24 07:51 | PC.NURSE ---
pt AxOx4, has rested t/o shift, remains on 3L NC, expiratory rhonchi noted, O2 sats 97%, using BSC with one assist, no complaints of pain this shift,
[2020-08-24 10:50] VITALS: PULSE 92
== END 2020-08-24 12:40 ==
LOC: ER 15:18 → 2ND 15:37
PROVIDERS: Admitting Provider Emergency Medicine; Emergency Provider Emergency Medicine; PCP Family Medicine; Visit Provider Family Medicine
DX: D64.9 Anemia, unspecified (principal); S82.841A Displaced bimalleolar fracture of right lower leg, initial encounter for closed fracture; J96.10 Chronic respiratory failure, unspecified whether with hypoxia or hypercapnia; I48.91 Unspecified atrial fibrillation; I42.9 Cardiomyopathy, unspecified; I11.0 Hypertensive heart disease with heart failure; I50.9 Heart failure, unspecified; I25.2 Old myocardial infarction; E03.9 Hypothyroidism, unspecified; J44.9 Chronic obstructive pulmonary disease, unspecified; Z99.81 Dependence on supplemental oxygen; Z91.81 History of falling; Z87.891 Personal history of nicotine dependence; Z88.2 Allergy status to sulfonamides; Z88.5 Allergy status to narcotic agent; Z79.51 Long term (current) use of inhaled steroids; Z79.899 Other long term (current) drug therapy; Z86.718 Personal history of other venous thrombosis and embolism; Z86.14 Personal history of Methicillin resistant Staphylococcus aureus infection; D80.3 Selective deficiency of immunoglobulin G [IgG] subclasses; M06.9 Rheumatoid arthritis, unspecified
CPT/HCPCS: 71045; 80048; 80053; 82803; 85014; 85018; 85025; 86850; 87581; 87633; 87798; 94640; 96365; 96375; 97110; 97162; 97166; 97530; 99283; G0378; P9016

== ENCOUNTER → 2020-08-25 12:48 | Outpatient (CLI) | payer MEDICARE, SELFPAY ==
--- NOTE | 2020-08-25 12:53 | XR_ITS ---
PROCEDURE: XR ANKLE RT MIN 3V CLINICAL INDICATION: right ankle fracture Follow-up fracture COMPARISON: CR XR ANKLE RT MIN 3V from 08/19/2020 FINDINGS: There is now a cast in place. There is mildly displaced fracture involving the base of the medial malleolus with minimal lateral displacement of the distal fracture fragment. Minimally displaced fracture involves the distal fibula with mild lateral subluxation the talus and mild widening of the ankle mortise. Well-corticated calcific densities are present at the tip of the medial and lateral malleolar region suggesting old injuries. IMPRESSION: No change bi malleolar fracture with mild widening of the ankle mortise and minimal lateral talar subluxation. Cast in place Dictated by: Carlos Starks MD 08/25/2020 14:26 Carlos Starks MD in [facility] 08/25/2020 14:26
== END ==
PROVIDERS: PCP Family Medicine; Visit Provider Orthopaedic Surgery
DX: S82.891A Other fracture of right lower leg, initial encounter for closed fracture (principal)
CPT/HCPCS: 73610

== ENCOUNTER → 2020-09-01 13:37 | Outpatient (CLI) | payer MEDICARE, SELFPAY ==
--- NOTE | 2020-09-01 13:47 | XR_ITS ---
PROCEDURE: XR ANKLE RT MIN 3V CLINICAL INDICATION: RT ankle fracture Follow-up fracture COMPARISON: CR XR ANKLE RT MIN 3V from 08/19/2020 CR XR ANKLE RT MIN 3V from 08/25/2020 FINDINGS: Minimally displaced fracture involves the distal fibula at the level of the ankle joint. There may be some minimal callus formation developing. The distal fracture fragment is displaced laterally by 3 mm. Transverse fracture involves the base of the medial malleolus with mild separation of the fracture fragments 3-4 mm and minimal lateral displacement. No significant callus formation at this fracture site. Avulsion fractures present at the tip the lateral malleolus. Avulsion fracture is noted at the anterior distal tibia. The cast/splint has been removed. The ankle mortise is slightly widened. IMPRESSION: Healing distal fibular fracture. The medial malleolar fracture site is not significantly changed with no significant callus formation. There is mild widening of the ankle mortise. There is minimal lateral displacement of the talus. Dictated by: Carlos Starks MD 09/01/2020 14:27 Carlos Starks MD in [facility] 09/01/2020 14:27
--- NOTE | 2020-09-01 14:59 | XR_ITS ---
PROCEDURE: XR CHEST 2V CLINICAL HISTORY: cough COMPARISON: CT CHESTWO CT chest wo con from 12/18/2018 CR XR CHEST 2V from 03/04/2020 CR XR CHEST PORTABLE from 08/11/2020 CR XR CHEST PORTABLE from 08/20/2020 FINDINGS: There is mild cardiomegaly with some pulmonary venous congestion consistent with mild CHF. Right subclavian MediPort catheter is present with tip in the region the SVC. There is increased density along the right heart border inferiorly however this is felt to be due to a prominent pericardial fat pad as opposed to an area of consolidation. Chronic atelectatic changes are present in the right middle lobe. There is some elevation of the right hemidiaphragm with bowel interposition on the right. Chronic changes are present in the left lung base. No acute bony findings. Postsurgical changes are present involving the distal clavicle on the right. Calcific density overlies the body of the scapula on the right measuring 14 mm and may represent a loose body within a bursal collection. No acute bony abnormalities. IMPRESSION: 1. Mild CHF. 2. Other chronic changes as described above Dictated by: Carlos Starks MD 09/01/2020 15:42 Carlos Starks MD in [facility] 09/01/2020 15:42
--- NOTE | 2020-09-01 15:36 | XR_ITS ---
PROCEDURE: XR ANKLE RT MIN 3V CLINICAL INDICATION: check ankle after cast applied Follow-up cast placement, fracture COMPARISON: CR XR ANKLE RT MIN 3V from 08/19/2020 CR XR ANKLE RT MIN 3V from 08/25/2020 CR XR ANKLE RT MIN 3V from 09/01/2020 FINDINGS: There is a cast in place. There is good alignment of the distal fibular fracture. The medial malleolar fracture slightly displaced laterally with mild lateral displacement of the talus and mild widening of the ankle joint space. IMPRESSION: Interval cast placement with no significant change in the distal fibular and medial malleolar fracture. Dictated by: Carlos Starks MD 09/01/2020 16:09 Carlos Starks MD in [facility] 09/01/2020 16:09
== END ==
PROVIDERS: PCP Family Medicine; Visit Provider Orthopaedic Surgery
DX: S82.841A Displaced bimalleolar fracture of right lower leg, initial encounter for closed fracture (principal); R05 Cough; S82.899A Other fracture of unspecified lower leg, initial encounter for closed fracture
CPT/HCPCS: 71046; 73610

== ENCOUNTER 2020-09-16 09:20 | Outpatient (CLI) | payer MEDICARE, SELFPAY ==
[2020-09-16 09:27] VITALS: BMI 29.9
[2020-09-16 09:45] VITALS: BP 107/54; PULSE 80; RESP 16; TEMP 36.4; O2SAT 93
[2020-09-16 10:20] VITALS: BP 128/57; PULSE 91; O2SAT 95
[2020-09-16 10:48] VITALS: BP 132/59; PULSE 97; O2SAT 97
[2020-09-16 11:43] VITALS: BP 134/92; PULSE 74; RESP 17; O2SAT 95
[2020-09-16 12:07] LABS: Microscopic, Urine URINE MICROSCOPIC (MICROSCOPIC)
[2020-09-16 12:11] LABS: Appearance,Urine CLEAR (Clear); Bilirubin,Urine Negative (Negative); Blood, Urine Negative (Negative); Color,Urine YELLOW (Yellow); Glucose,Urine (UA) Negative (Negative); Ketones,Urine Negative (Negative); Leukocyte Esterase,Urine Negative (Negative); Nitrate,Urine Negative (Negative); PH,Urine 5.5 (5.0-8.5); Protein,Urine Negative (Negative); Urobilinogen,Urine 0.2 EU/dl (0.2)
[2020-09-16 12:12] LABS: Basophils % 0.3 % (0.1-2.0); Eosinophils # 0.1 K/mm3 (0.0-0.4); Eosinophils % 2.8 % (0.1-12.0); Hematocrit 27.8 % (37.0-47.0); Hemoglobin 9.4 g/dL (12.2-16.2); Lymphocytes # 0.4 K/mm3 (0.7-4.5); Lymphocytes % 8.6 % (10-50); Mean Corpuscular HGB Conc 33.6 g/dL (31.8-35.4); Mean Corpuscular Hemoglobin 30.2 pg (27.0-31.2); Monocytes # 0.2 K/mm3 (0.1-1.0); Monocytes % 4.2 % (1.7-9.3); Neutrophils # 4.2 K/mm3 (1.8-7.8); Neutrophils % 84.1 % (37.0-80.0); Platelet Count 136 K/mm3 (142-424); Red Blood Count 3.09 M/mm3 (4.20-5.40); Red Cell Distribution Width 13.7 % (11.5-17.5)
[2020-09-16 12:22] LABS: Albumin Level 3.4 g/dl (3.5-5.0); Chloride 96 mmol/L (98-107); Potassium 3.9 mmoL/L (3.5-5.1); Sodium 135 mmol/L (136-145)
[2020-09-16 12:24] LABS: Blood Urea Nitrogen 18 mg/dl (7-17)
[2020-09-16 12:25] LABS: Anion Gap 10.9 mEq/L (5-15); Calcium 8.5 mg/dl (8.4-10.2); Carbon Dioxide 32 mmol/L (22.0-30.0); Creatinine Clearance Estimated 47 mL/min (50-200); Estimated Glomerular Filt Rate 37 ml/min (>60); GFR (African American) 45 ML/MIN (>60); Glucose 115 mg/dl (74-100)
== END 2020-09-16 12:19 | disposition home or self-care (01) ==
LOC: INF 09:25
PROVIDERS: Internal Medicine Nephrology; Visit Provider Family Medicine
DX: N18.30 Chronic kidney disease, stage 3 unspecified (principal); R51.9 Headache, unspecified; D50.8 Other iron deficiency anemias; D80.3 Selective deficiency of immunoglobulin G [IgG] subclasses
CPT/HCPCS: 80069; 81001; 85025; 96365; 96366; J1568; J1642

== ENCOUNTER → 2020-09-22 13:09 | Outpatient (CLI) | payer MEDICARE, SELFPAY ==
--- NOTE | 2020-09-22 13:14 | XR_ITS ---
PROCEDURE: XR ANKLE RT MIN 3V CLINICAL INDICATION: RT ankle fracture follow up COMPARISON: CR XR ANKLE RT MIN 3V from 08/19/2020 CR XR ANKLE RT MIN 3V from 08/25/2020 CR XR ANKLE RT MIN 3V from 09/01/2020 CR XR ANKLE RT MIN 3V from 09/01/2020 FINDINGS: The cast has been removed. By malleolar fracture once again noted. Distal fibular fracture is nondisplaced. Transverse medial malleolar fracture slightly displaced laterally with 2-3 mm distraction of the distal fracture fragment. Multifocal ossified bodies noted at the tip of the medial and lateral malleolus as previously described unchanged. Avulsion fracture noted of the anterior distal tibia. There is mild lateral subluxation of the talus by approximately 4-5 mm. IMPRESSION: Overall no change by malleolar fracture with mild widening of the ankle mortise and lateral subluxation of the medial malleolus. Dictated by: Carlos Starks MD 09/22/2020 14:15 Carlos Starks MD in [facility] 09/22/2020 14:15
== END ==
PROVIDERS: PCP Family Medicine; Visit Provider Orthopaedic Surgery
DX: S82.899A Other fracture of unspecified lower leg, initial encounter for closed fracture (principal)
CPT/HCPCS: 73610

== ENCOUNTER 2020-10-05 02:21 | Emergency (ER) | payer MEDICARE, SELFPAY ==
[2020-10-05] VITALS (7 sets, daily range): BP systolic 97–111; BP diastolic 35–70; PULSE 91–96; RESP 20; TEMP 36.7; O2SAT 96–100; BMI 36.6
--- NOTE | 2020-10-05 02:23 | XR_ITS ---
PROCEDURE INFORMATION: Exam: XR Chest Exam date and time: 10/05/2020 2:23 AM Age: 74 years old Clinical indication: Injury or trauma; Fall; Blunt trauma (contusions or hematomas); Injury date: 10/05/2020; Patient HX: Fell trauma protocol TECHNIQUE: Imaging protocol: XR of the chest. Views: 4 or more views. Total images: 1 COMPARISON: CR XR CHEST 2V 09/01/2020 3:09 PM FINDINGS: Tubes, catheters and devices: An infusion port is in satisfactory location, its tip in the superior vena cava. Lungs: Pulmonary hyperinflation is evident, suspicious for COPD. Patchy biapical opacities and streaky left lung base opacities are new from 08/20/2020, nonspecific but potentially atelectasis. Pleural spaces: Unremarkable. No pleural effusion. No pneumothorax. Heart/Mediastinum: Mild cardiomegaly. Vasculature: Atherosclerosis is evident. Bones/joints: Moderate degenerative changes of the left shoulder are noted. Chronic nonunion fracture of the distal right clavicle. IMPRESSION: 1. Pulmonary hyperinflation is evident, suspicious for COPD. 2. Patchy biapical opacities and streaky left lung base opacities are new from 08/20/2020, nonspecific but potentially atelectasis.
--- NOTE | 2020-10-05 02:23 | CT_ITS ---
PROCEDURE INFORMATION: Exam: CT Head Without Contrast Exam date and time: 10/05/2020 2:23 AM Age: 74 years old Clinical indication: Injury or trauma; Blunt trauma (contusions or hematomas); Without loss of consciousness; Injury date: 10/05/2020; Injury details: Fell hit back of head; Patient HX: Fall trauma protocol; Additional info: Fall no loc, hit head TECHNIQUE: Imaging protocol: Computed tomography of the head without contrast. Radiation optimization: All CT scans at this facility use at least one of these dose optimization techniques: automated exposure control; mA and/or kV adjustment per patient size (includes targeted exams where dose is matched to clinical indication); or iterative reconstruction. COMPARISON: [facility] CT HEAD W/O CONTRAST 07/08/2015 10:26 PM FINDINGS: Brain: Mild atrophy. No intracranial hemorrhage. No mass. Few scattered foci of decreased attenuation within periventricular/subcortical white matter. No edema. Cerebral ventricles: No hydrocephalus. Bones/joints: No acute fracture. Paranasal sinuses: No acute sinusitis. Mastoid air cells: No significant effusion. Orbital cavity: Unremarkable as visualized. Vasculature: Atherosclerotic disease of intracranial arteries. Soft tissues: Unremarkable. IMPRESSION: 1. No intracranial hemorrhage. 2. Probable chronic microvascular ischemic changes.
--- NOTE | 2020-10-05 02:23 | XR_ITS ---
PROCEDURE INFORMATION: Exam: XR Left Hip Exam date and time: 10/05/2020 2:23 AM Age: 74 years old Clinical indication: Pain and injury or trauma; Fall; Blunt trauma (contusions or hematomas); Hip pain; Injury date: 10/05/2020; Injury details: Fell and now pain left hip; Prior surgery; Surgery date: 6+ months; Surgery type: Left hip pin TECHNIQUE: Imaging protocol: XR Left hip. Views: 2 or 3 views hip with pelvis when performed. Total images: 4 COMPARISON: CT ABDOMEN PELVIS WO CON 03/04/2020 1:12 AM FINDINGS: Tubes, catheters and devices: Midline catheter overlies the pelvis. Bones/joints: Osseous demineralization is evident. L4 laminectomy. Severe spinal degenerative changes. Spinal pain pump. Left hip arthroplasty is present. Evidence of previously removed left-sided dynamic hip screw with no change in the appearance of the proximal left femur from 03/04/2020. Soft tissues: Unremarkable. Vasculature: Atherosclerosis is evident. IMPRESSION: Evidence of previously removed left-sided dynamic hip screw with no change in the appearance of the proximal left femur from 03/04/2020. No acute process identified.
--- NOTE | 2020-10-05 02:23 | CT_ITS ---
PROCEDURE INFORMATION: Exam: CT Cervical Spine Without Contrast Exam date and time: 10/05/2020 2:23 AM Age: 74 years old Clinical indication: Injury or trauma; Fall; Blunt trauma; Injury date: 10/05/2020; Injury details: Fell trauma protocol. Hit back of head; Additional info: Fall no loc, hit head TECHNIQUE: Imaging protocol: Computed tomography images of the cervical spine without contrast. Radiation optimization: All CT scans at this facility use at least one of these dose optimization techniques: automated exposure control; mA and/or kV adjustment per patient size (includes targeted exams where dose is matched to clinical indication); or iterative reconstruction. COMPARISON: CT SOFT TISSUE NECK WO CON 08/12/2020 9:04 AM FINDINGS: Tubes, catheters and devices: Central venous catheter. Bones/joints: No acute fracture. Degenerative anterolisthesis of lower cervical spine. Facet osteoarthrosis within lower cervical spine. Prominent anterior osteophytes. Discs/Spinal canal/Neural foramina: No significant central canal stenosis. Neuroforaminal narrowing within lower cervical spine. Lungs: Unremarkable as visualized. Vasculature: Atherosclerotic disease of visualized arteries. Soft tissues: Unremarkable. IMPRESSION: No fracture.
[2020-10-05 02:35] LABS: Basophils % 0.6 % (0.1-2.0); Chloride 96 mmol/L (98-107); Eosinophils # 0.4 K/mm3 (0.0-0.4); Eosinophils % 5.2 % (0.1-12.0); Lymphocytes # 1.4 K/mm3 (0.7-4.5); Lymphocytes % 19.1 % (10-50); Mean Corpuscular HGB Conc 33.3 g/dL (31.8-35.4); Mean Corpuscular Hemoglobin 29.5 pg (27.0-31.2); Mean Corpuscular Volume 88.6 fl (81-99); Mean Platelet Volume 6.9 fl (7.4-10.4); Monocytes # 0.5 K/mm3 (0.1-1.0); Monocytes % 6.5 % (1.7-9.3); Neutrophils % 68.7 % (37.0-80.0); Platelet Count 224 K/mm3 (142-424); Red Blood Count 3.05 M/mm3 (4.20-5.40); Red Cell Distribution Width 13.7 % (11.5-17.5); White Blood Count 7.3 K/mm3 (4.8-10.8)
[2020-10-05 02:36] LABS: Potassium 4.2 mmoL/L (3.5-5.1); Sodium 133 mmol/L (136-145)
--- NOTE | 2020-10-05 02:37 | PC.NURSE ---
patient going to radiology
[2020-10-05 02:38] LABS: Alanine Aminotransferase 11 U/L (12-78); Aspartate Amino Transferase 19 U/L (14-36); Blood Urea Nitrogen 17 mg/dl (7-17); Creatinine Clearance Estimated 53 mL/min (50-200); Estimated Glomerular Filt Rate 34 ml/min (>60); GFR (African American) 41 ML/MIN (>60)
[2020-10-05 02:39] LABS: Albumin Level 3.5 g/dl (3.5-5.0); Albumin/Globulin Ratio 1.2 (1.1-1.8); Alkaline Phosphatase 92 U/L (38-126); Anion Gap 9.2 mEq/L (5-15); Bilirubin,Total 0.4 mg/dl (0.2-1.3); Calcium 8.3 mg/dl (8.4-10.2); Carbon Dioxide 32 mmol/L (22.0-30.0); Globulin 2.9 g/dL (1.3-3.2); Glucose 97 mg/dl (74-100); Total Protein,Serum 6.4 g/dl (6.3-8.2)
[2020-10-05 02:44] LABS: C-Reactive Protein 22.4 mg/L (0-4)
[2020-10-05 03:09] LABS: Microscopic, Urine URINE MICROSCOPIC (MICROSCOPIC)
[2020-10-05 03:12] LABS: Appearance,Urine CLEAR (Clear); Bilirubin,Urine Negative (Negative); Blood, Urine Negative (Negative); Color,Urine YELLOW (Yellow); Glucose,Urine (UA) Negative (Negative); Ketones,Urine Negative (Negative); Leukocyte Esterase,Urine Negative (Negative); Nitrate,Urine Negative (Negative); PH,Urine 5.5 (5.0-8.5); Protein,Urine Negative (Negative); Urobilinogen,Urine 0.2 EU/dl (0.2)
[2020-10-05 03:34] LABS: Procalcitonin 0.203 ng/mL (0.0-2.0)
--- NOTE | 2020-10-05 03:37 | PC.NURSE ---
patient back from radiology
[2020-10-05 03:38] LABS: Erythrocyte Sedimentation Rate > 140 mm/hr (0-30)
[2020-10-05 03:40] LABS: Bacteria,Urine Trace /lpf; Squamous Epithelial Cell,Urine Occasional #/hpf (0-5); WBC,Urine Occasional #/hpf (0-3)
--- NOTE | 2020-10-05 04:31 | HMH.EDFALL ---
ED Disposition Clinical Impression: Elevated erythrocyte sedimentation rate, Decubitus ulcer of sacral region, stage 1 Fall Qualifiers: Encounter type: initial encounter Qualified Code(s): W19.XXXA - Unspecified fall, initial encounter Concussion without loss of consciousness Qualifiers: Encounter type: initial encounter Qualified Code(s): S06.0X0A - Concussion without loss of consciousness, initial encounter COPD (chronic obstructive pulmonary disease) Qualifiers: COPD type: unspecified COPD Qualified Code(s): J44.9 - Chronic obstructive pulmonary disease, unspecified Bimalleolar fracture of right ankle Qualifiers: Encounter type: initial encounter Fracture type: closed Qualified Code(s): S82.841A - Displaced bimalleolar fracture of right lower leg, initial encounter for closed fracture Abrasion of great toe, right Qualifiers: Encounter type: sequela Qualified Code(s): S90.411S - Abrasion, right great toe, sequela Anemia Qualifiers: Anemia type: unspecified type Qualified Code(s): D64.9 - Anemia, unspecified Disposition: Xfer SNF Condition on Discharge: Good Additional Instructions: monitor toe and sacral area Prescriptions: Mupirocin [Bactroban 2% Ointment 22gm tube] 1 applicatio TP BID #1 tube Prescription Printed Referrals: Luis Hanson MD [Primary Care Provider] - - Critical Care Critical Care Time: No Attestation: On 10/05/20, the high probability of a clinically significant, sudden or life threatening deterioration of the following system(s) required my full and direct attention, intervention and personal management. The time I documented below is in addition to time spent performing reported procedures but includes the following listed in this critical care notation. Medical Decision Making - Medical Records Medical records reviewed: Yes: I reviewed the patient's medical records. - Julius Inquiry Pt receiving controlled substance: No Vital Signs: 10/05/20 02:21 10/05/20 02:31 10/05/20 03:36 Pulse Rate 91 H 96 H Pulse Rate [Right] 91 H Respiratory Rate 20 Blood Pressure 99/43 L 97/70 L Blood Pressure [Right Arm] 111/35 L Blood Pressure Mean Blood Pressure Mean [Right Arm] 60 02 Sat by Pulse Oximetry 99 99 100 Oxygen Delivery Method Nasal Cannula Oxygen Flow Rate (LPM) 2 10/05/20 03:37 10/05/20 04:01 Pulse Rate 95 H Pulse Rate [Right] Respiratory Rate Blood Pressure 97/70 L 103/55 L Blood Pressure [Right Arm] Blood Pressure Mean 71 Blood Pressure Mean [Right Arm] 02 Sat by Pulse Oximetry 100 Oxygen Delivery Method Oxygen Flow Rate (LPM) - Lab Data Lab results reviewed: Yes: I reviewed the patient's lab results. Lab Results 10/05/20 02:20: WBC 7.3, RBC 3.05 L, Hgb 9.0 L, Hct 27.0 L, MCV 88.6, MCH 29.5, MCHC 33.3, RDW 13.7, Plt Count 224, MPV 6.9 L, Neut % (Auto) 68.7, Lymph % (Auto) 19.1, [place] % (Auto) 6.5, Eos % (Auto) 5.2, Baso % (Auto) 0.6, Neut # (Auto) 5.0, Lymph # (Auto) 1.4, [place] # (Auto) 0.5, Eos # (Auto) 0.4, Baso # (Auto) 0.0, ESR > 140 H 10/05/20 02:20: Sodium 133 L, Potassium 4.2, Chloride 96 L, Carbon Dioxide 32 H, Anion Gap 9.2, BUN 17, Creatinine 1.50 H, Estimated Creat Clear 53, Estimated GFR 34 L, Est GFR ( Amer) 41 L, Glucose 97, Calcium 8.3 L, Total Bilirubin 0.4, AST 19, ALT 11 L, Alkaline Phosphatase 92, C-Reactive Protein 22.4 H, Total Protein 6.4, Albumin 3.5, Globulin 2.9, Albumin/Globulin Ratio 1.2 10/05/20 02:20: Procalcitonin 0.203 10/05/20 02:45: Urine Color Yellow, Urine Appearance Clear, Urine pH 5.5, Ur Specific [place] 1.020, Urine Protein Negative, Urine Glucose (UA) Negative, Urine Ketones Negative, Urine Blood Negative, Urine Nitrate Negative, Urine Bilirubin Negative, Urine Urobilinogen 0.2, Ur Leukocyte Esterase Negative, Urine WBC Occasional, Ur Squamous Epith Cells Occasional, Urine Bacteria Trace Result diagrams: 10/05/20 02:20 10/05/20 02:20 Orders (Tests/Meds): ED MEDIC
--- NOTE | 2020-10-05 05:02 | PC.NURSE ---
Shaneka notified for transport back to [facility].
--- NOTE | 2020-10-05 05:10 | PC.NURSE ---
BP recorded incorrectly at 4:33 & 4:35, BP cuff adjusted and correct BP at 4:37 recorded
== END 2020-10-05 05:53 ==
PROVIDERS: Emergency Provider Emergency Medicine; PCP Emergency Medicine
DX: S06.0X0A Concussion without loss of consciousness, initial encounter (principal); S82.841A Displaced bimalleolar fracture of right lower leg, initial encounter for closed fracture; S90.411A Abrasion, right great toe, initial encounter; L89.151 Pressure ulcer of sacral region, stage 1; D64.9 Anemia, unspecified; M25.552 Pain in left hip; W01.0XXA Fall on same level from slipping, tripping and stumbling without subsequent striking against object, initial encounter; Y92.129 Unspecified place in nursing home as the place of occurrence of the external cause; J44.9 Chronic obstructive pulmonary disease, unspecified; Z79.899 Other long term (current) drug therapy; Z11.52 Encounter for screening for COVID-19
CPT/HCPCS: 70450; 71045; 72125; 73502; 80053; 81001; 84145; 85025; 85651; 86140; 96365; 96375; 99284; J1642; U0003

== ENCOUNTER 2020-10-11 13:58 | Observation (INO) | payer MEDICARE, SELFPAY ==
[2020-10-11] VITALS (14 sets, daily range): BP systolic 99–129; BP diastolic 41–89; PULSE 74–86; RESP 18–22; TEMP 36.8; O2SAT 90–99; BMI 30.6; BMI 32.1
--- NOTE | 2020-10-11 14:01 | CT_ITS ---
PROCEDURE: CT HIP LT WO CON CLINICAL HISTORY: TRAUMA PROTOCOL Posttraumatic pain COMPARISON: CR XR HIP LT 2-3V W/PELVIS from 09/17/2019 CR XR HIP LT 2-3V W/PELVIS from 10/05/[address] ABDOMEN PELVIS W CON from 10/11/2020 TECHNIQUE: Axial images obtained with sagittal and coronal reformats. All CT scans at the facility use one or more dose reduction, viz: automated exposure control, ma/kV adjustment per patient size (including targeted exams where dose is matched to indication, i.e. head), or iterative reconstruction technique. FINDINGS: There is a left hip prosthesis in place with a radial lucent acetabular cup and a radiopaque ring. A metallic femoral head and femoral stem are present causing significant artifact. This could easily obscure a nondisplaced fracture. No displaced fracture is evident. There is an old left inferior pubic ramus fracture. Defect is present in the proximal left femur from prior dynamic screw removal. Postsurgical changes are present within the soft tissues of the hip laterally. Incidental note is made diverticulosis. Contrast is present in the left ureter from recent abdominal CT. IMPRESSION: No acute finding. Status post left hip arthroplasty with good alignment Dictated by: Carlos Starks MD 10/11/2020 16:03 Carlos Starks MD in [facility] 10/11/2020 16:03
--- NOTE | 2020-10-11 14:01 | CT_ITS ---
PROCEDURE: CT ABDOMEN PELVIS W CON CLINICAL INDICATION: TRAUMA PROTOCOL Blunt trauma with injury and pain, contusion/abrasion or hematoma following injury COMPARISON: CT CT ABDOMEN PELVIS WO CON from 03/04/2020 TECHNIQUE: IV Contrast: 75ML Isovue 370 Oral Contrast there is mild bronchial thickening in the lung bases with atelectatic changes in the left lower lobe. Axial images obtained with sagittal and coronal reformats. All CT scans at the facility use one or more dose reduction, viz: automated exposure control, ma/kV adjustment per patient size (including targeted exams where dose is matched to indication, i.e. head), or iterative reconstruction technique. FINDINGS: LOWER THORAX: Mild left basilar atelectasis. Mild bronchial thickening in the lung bases. Coronary artery calcifications are present. ABDOMEN & PELVIS: Prior cholecystectomy. There is mild biliary ectasia. Common bile duct measures up to 12 mm does not appear significantly changed. Biliary dilatation may be secondary to reservoir effect from prior cholecystectomy. The spleen and pancreas have an unremarkable appearance as do the adrenal glands. There is an exophytic cyst projecting off the anterior aspect of the left kidney measuring 3.7 by 2.4 cm. No renal or ureteral calculi. No hydronephrosis. Bowel gas pattern is nonspecific with some fluid-filled loops of small and large bowel which do not appear dilated. There is mild amount of retained colonic feces. No evidence of diverticulitis or appendicitis. Colonic diverticulosis is present. Prior hysterectomy. No pelvic mass or abnormal fluid collection. Artifact is present from left hip prosthesis. Extensive degenerative changes are present in the lumbar spine with kyphosis and low bone density. Severe facet hypertrophic changes are noted. There are postsurgical changes with laminectomy defect at L3-L4. There is an epidural stimulator device present IMPRESSION: 1. No acute intra-abdominal findings. 2. Left basilar atelectasis. Dictated by: Carlos Starks MD 10/11/2020 15:36 Carlos Starks MD in [facility] 10/11/2020 15:36
[2020-10-11 14:29] LABS: Sodium 137 mmol/L (136-145)
[2020-10-11 14:30] LABS: Chloride 97 mmol/L (98-107); Potassium 4.3 mmoL/L (3.5-5.1)
[2020-10-11 14:32] LABS: Alanine Aminotransferase 9 U/L (12-78); Albumin Level 3.4 g/dl (3.5-5.0); Albumin/Globulin Ratio 1.2 (1.1-1.8); Alkaline Phosphatase 110 U/L (38-126); Anion Gap 9.3 mEq/L (5-15); Aspartate Amino Transferase 18 U/L (14-36); Bilirubin,Total 0.4 mg/dl (0.2-1.3); Blood Urea Nitrogen 16 mg/dl (7-17); Calcium 8.1 mg/dl (8.4-10.2); Carbon Dioxide 35 mmol/L (22.0-30.0); Creatinine Clearance Estimated 45 mL/min (50-200); Estimated Glomerular Filt Rate 34 ml/min (>60); GFR (African American) 41 ML/MIN (>60); Globulin 2.8 g/dL (1.3-3.2); Glucose 113 mg/dl (74-100); Total Protein,Serum 6.2 g/dl (6.3-8.2)
[2020-10-11 14:34] LABS: Eosinophils # 0.2 K/mm3 (0.0-0.4); Monocytes # 0.3 K/mm3 (0.1-1.0); Neutrophils # 5.2 K/mm3 (1.8-7.8)
[2020-10-11 14:38] LABS: Basophils % 0.3 % (0.1-2.0); Eosinophils % 3.7 % (0.1-12.0); Hematocrit 26.3 % (37.0-47.0); Hemoglobin 8.6 g/dL (12.2-16.2); Lymphocytes # 0.8 K/mm3 (0.7-4.5); Lymphocytes % 12.3 % (10-50); Mean Corpuscular HGB Conc 32.6 g/dL (31.8-35.4); Mean Corpuscular Hemoglobin 29.2 pg (27.0-31.2); Mean Corpuscular Volume 89.6 fl (81-99); Neutrophils % 79.7 % (37.0-80.0); Platelet Count 194 K/mm3 (142-424); Red Blood Count 2.93 M/mm3 (4.20-5.40); Red Cell Distribution Width 13.6 % (11.5-17.5); White Blood Count 6.5 K/mm3 (4.8-10.8)
--- NOTE | 2020-10-11 14:49 | HMH.EDGENADL ---
ED Disposition Clinical Impression: Contusion, flank Qualifiers: Encounter type: initial encounter Qualified Code(s): S30.1XXA - Contusion of abdominal wall, initial encounter Contusion, hip Qualifiers: Encounter type: initial encounter Laterality: left Qualified Code(s): S70.02XA - Contusion of left hip, initial encounter Disposition: Admitted as Observation Condition on Discharge: [facility] - Critical Care Critical Care Time: No Attestation: On 10/11/20, the high probability of a clinically significant, sudden or life threatening deterioration of the following system(s) required my full and direct attention, intervention and personal management. The time I documented below is in addition to time spent performing reported procedures but includes the following listed in this critical care notation. Medical Decision Making - Julius Inquiry Pt receiving controlled substance: No Vital Signs: 10/11/20 13:59 10/11/20 15:30 10/11/20 16:00 Temperature 98.2 F Temperature Source Oral Pulse Rate 81 82 Pulse Rate [Right Radial] 81 Respiratory Rate 20 22 Blood Pressure 111/73 129/58 L Blood Pressure [Right Arm] 125/72 Blood Pressure Mean 84 81 Blood Pressure Mean [Right Arm] 89 Blood Pressure Source [Right Arm] Automatic Cuff Blood Pressure Position [Right Arm] Sitting 02 Sat by Pulse Oximetry 99 91 L 95 Oxygen Delivery Method Nasal Cannula Oxygen Flow Rate (LPM) 2 10/11/20 16:39 10/11/20 17:00 Temperature Temperature Source Pulse Rate 80 86 Pulse Rate [Right Radial] Respiratory Rate Blood Pressure 109/85 L 114/66 Blood Pressure [Right Arm] Blood Pressure Mean 92 82 Blood Pressure Mean [Right Arm] Blood Pressure Source [Right Arm] Blood Pressure Position [Right Arm] 02 Sat by Pulse Oximetry 90 L 92 L Oxygen Delivery Method Oxygen Flow Rate (LPM) - Lab Data Lab Results 10/11/20 14:16: WBC 6.5, RBC 2.93 L, Hgb 8.6 L, Hct 26.3 L, MCV 89.6, MCH 29.2, MCHC 32.6, RDW 13.6, Plt Count 194, MPV 7.0 L, Neut % (Auto) 79.7, Lymph % (Auto) 12.3, [place] % (Auto) 4.0, Eos % (Auto) 3.7, Baso % (Auto) 0.3, Neut # (Auto) 5.2, Lymph # (Auto) 0.8, [place] # (Auto) 0.3, Eos # (Auto) 0.2, Baso # (Auto) 0.0 10/11/20 14:16: Sodium 137, Potassium 4.3, Chloride 97 L, Carbon Dioxide 35 H, Anion Gap 9.3, BUN 16, Creatinine 1.50 H, Estimated Creat Clear 45, Estimated GFR 34 L, Est GFR ( Amer) 41 L, Glucose 113 H, Calcium 8.1 L, Total Bilirubin 0.4, AST 18, ALT 9 L, Alkaline Phosphatase 110, Total Protein 6.2 L, Albumin 3.4 L, Globulin 2.8, Albumin/Globulin Ratio 1.2 Result diagrams: 10/11/20 14:16 10/11/20 14:16 Orders (Tests/Meds): ED MEDICATIONS Discontinued Medications Generic Name Dose Route Start Last Admin Trade Name Freq PRN Reason Stop Dose Admin Iopamidol 75 ml 10/11/20 15:04 10/11/20 15:06 Iopamidol-370 (76%);100ml Bottle IV 10/11/20 15:05 75 ml ONCE ONE Administration Sodium Chloride 10 ml 10/11/20 15:04 10/11/20 15:06 Sodium Chloride 0.9% 10ml Syr (Rad Only) IV 10/11/20 15:05 10 ml ONCE ONE Administration ORDERS Category Date Time Status Covid-19 Nasal PCR ([facility]) Routine Lab 10/11/20 17:54 Received - CT Data CT Scan: Abdomen, Pelvis, Other (left hip) Time Received: 16:[address] Reviewed: Yes: I have viewed the radiologist's interpretation Findings Narrative: PROCEDURE: CT ABDOMEN PELVIS W CON CLINICAL INDICATION: TRAUMA PROTOCOL Blunt trauma with injury and pain, contusion/abrasion or hematoma following injury COMPARISON: CT CT ABDOMEN PELVIS WO CON from 03/04/2020 TECHNIQUE: IV Contrast: 75ML Isovue 370 Oral Contrast there is mild bronchial thickening in the lung bases with atelectatic changes in the left lower lobe. Axial images obtained with sagittal and coronal reformats. All CT scans at the facility use one or more dose reduction, viz: automated exposure control, ma/kV adjustment per patient size (including
--- NOTE | 2020-10-11 16:11 | PC.NURSE ---
pt eating ice chips
--- NOTE | 2020-10-11 16:24 | PC.NURSE ---
With patient permission, Beti Styles was updated on patient condtion.
--- NOTE | 2020-10-11 16:39 | PC.NURSE ---
assisted patient to use bedside commode x1 assist. patient tolerated stand and pivot well. patient was placed back in bed after using the bathroom, VSS, bedrails up x2. patient resting comfortably at this time.
--- NOTE | 2020-10-11 17:46 | PC.NURSE ---
spoke with Dr. Hanson
--- NOTE | 2020-10-11 17:56 | PC.NURSE ---
called for supper tray
--- NOTE | 2020-10-11 18:00 | PC.NURSE ---
notified house of admission
--- NOTE | 2020-10-11 18:06 | PC.NURSE ---
notified staff at [facility] that pt is going to be admitted. Per pt request I spoke with Page and asked her to get pts yellow phone from her bedside table and put it at the nurses station. Page states she will.
--- NOTE | 2020-10-11 21:11 | PC.NURSE ---
patient up to floor via stretcher.
[2020-10-12] VITALS (7 sets, daily range): BP systolic 106–128; BP diastolic 46–57; PULSE 80–90; RESP 20–24; TEMP 36.6–37.4; O2SAT 94–98; BMI 32.1
--- NOTE | 2020-10-12 05:00 | PC.NURSE ---
Pt A&O. C/o 5/10 pain in her left hip but did not want pain medication at this time. PT has several bruises to both arms, and left hip and flank. Cast is in place on RLE. Pt able to transfer to [facility] with 2 assist. On 3L NC at NH, pt sats at 0400 vitals were in the 70s, titrated NC to 4L, sats improved to 90s. Pt reports on SOA. IV patent. VSS, call light in reach, no concerns at this time.
--- NOTE | 2020-10-12 08:55 | HMH.HP ---
*Admission Date: 10/12/20 *Chief complaint: Left Hip Pain *History of present illness: 74-year-old female patient presented to the [facility] ED [facility] after physical therapist was concerned about possible spleen injury and left hip injury from recent fall. Patient reports she she fell 5 days ago and has bruising and soreness on her left flank and left hip. She currently has a fractured right ankle also with cast intact sustained after a fall on August 19. Patient was also admitted in early August Of this year after she presented to the emergency department and was evaluated for weakness and with a history of anemia after R Ankle fracture. She was admitted for IV fluids and blood transfusions, she received 2 units of packed blood cells, strength was improved and she was discharged shortly thereafter. 10/11/[address]: FINDINGS: There is a left hip prosthesis in place with a radial lucent acetabular cup and a radiopaque ring. A metallic femoral head and femoral stem are present causing significant artifact. This could easily obscure a nondisplaced fracture. No displaced fracture is evident. There is an old left inferior pubic ramus fracture. Defect is present in the proximal left femur from prior dynamic screw removal. Postsurgical changes are present within the soft tissues of the hip laterally. Incidental note is made diverticulosis. Contrast is present in the left ureter from recent abdominal CT. IMPRESSION: No acute finding. Status post left hip arthroplasty with good alignment Dictated by: Carlos Starks MD 10/11/20 Abd/Pelvis CT: FINDINGS: LOWER THORAX: Mild left basilar atelectasis. Mild bronchial thickening in the lung bases. Coronary artery calcifications are present. ABDOMEN & PELVIS: Prior cholecystectomy. There is mild biliary ectasia. Common bile duct measures up to 12 mm does not appear significantly changed. Biliary dilatation may be secondary to reservoir effect from prior cholecystectomy. The spleen and pancreas have an unremarkable appearance as do the adrenal glands. There is an exophytic cyst projecting off the anterior aspect of the left kidney measuring 3.7 by 2.4 cm. No renal or ureteral calculi. No hydronephrosis. Bowel gas pattern is nonspecific with some fluid-filled loops of small and large bowel which do not appear dilated. There is mild amount of retained colonic feces. No evidence of diverticulitis or appendicitis. Colonic diverticulosis is present. Prior hysterectomy. No pelvic mass or abnormal fluid collection. Artifact is present from left hip prosthesis. Extensive degenerative changes are present in the lumbar spine with kyphosis and low bone density. Severe facet hypertrophic changes are noted. There are postsurgical changes with laminectomy defect at L3-L4. There is an epidural stimulator device present IMPRESSION: 1. No acute intra-abdominal findings. 2. Left basilar atelectasis. Dictated by: Carlos Starks MD 10/11/20 CXR: FINDINGS: The lung dinero are well expanded and appear clear of infiltrate. There is minimal postinflammatory scarring at the left base and left cardiophrenic angle. There is borderline cardiomegaly however the vascularity is normal. There is a MediPort catheter entering the right subclavian vein near the junction with the SVC with the tip in the SVC above the right atrium. There degenerate changes of both shoulders with heterotopic new bone formation seen just at the inferior lip of the glenoid with marked narrowing of the glenohumeral joint. There is multilevel degenerate changes of the thoracic spine with mild dextroscoliotic curvature. IMPRESSION: No acute findings Dictated by: Dr. Tom Carlton MD [facility] History I have reviewed the patient's past medical history: Yes Medical History: Reports:: Anxiety, Arrhythmia, Atrial Fibrillation, Cardiomyopathy, Conges
--- NOTE | 2020-10-12 09:29 | DIET.NUTRFU ---
Pt requested regular diet, she has received diet edu/counseling for low sodium diet several times and chooses to be noncompliant with nutrition related recommendations. No acute cardiac concerns at this time, diet liberalized, will monitor and alter as indicated.
--- NOTE | 2020-10-12 10:30 | SW/DCPLANNER ---
Addendum entered by Yudelka Iniguez 10/13/20 11:30: This patient will receive one unit of blood today then plan is to discharge back to [facility]. I have informed Jo Ann with [facility] [place]: no further COVID testing is needed at this time. Original Note: This patient currently resides at [facility] [place]. I have spoke with Jo Ann at [facility] and she has stated patient is [facility] level of care. I will continue to follow up with patient/[facility] until patient is medically stable for discharge.
--- NOTE | 2020-10-12 10:34 | HMH.PHAVTE ---
[facility] Pharmacy VTE Monitoring - Patient Demographics Admission date: 10/12/20 Report Date: 10/12/20 Time: 10:34 Allergies/Adverse Reactions: Patient Allergies hydrocodone [HYDROCODONE] Allergy (Severe, Verified 10/11/20 21:20) dizziness, n/v codeine [CODEINE] Allergy (Intermediate, Verified 10/11/20 21:20) dizziness. n/v Sulfa (Sulfonamide Antibiotics) [SULFA (SULFONAMIDE ANTIBIOTICS)] Adverse Reaction (Mild, Verified 10/11/20 21:20) n/v Height: 1.65 m Weight: 87.5 kg Patient Problems: Current Active Problems Contusion, flank (Acute) Contusion, hip (Acute) - VTE Risk Labs: VTE Related Lab Results Hgb 8.6 g/dL (12.2-16.2) L 10/11/20 14:16 Hct 26.3 % (37.0-47.0) L 10/11/20 14:16 Plt Count 194 K/mm3 (142-424) 10/11/20 14:16 BUN 16 mg/dl (7-17) 10/11/20 14:16 Creatinine 1.50 mg/dl (0.52-1.04) H 10/11/20 14:16 Estimated Creat Clear 45 mL/min (50-200) 10/11/20 14:16 Was VTE Risk Assessment Performed: Yes VTE Score: 8 VTE Risk Level: Moderate Risk Clinical Trial Participant: No - Prophylaxis VTE Prophylaxis Ordered?: Yes Types of VTE Prophylaxis: TEDS Knee High
--- NOTE | 2020-10-12 11:56 | HMH.PHAINT ---
home medication list completed using MAR from [facility]
--- NOTE | 2020-10-12 15:20 | HMH.ORTHOCON ---
*Admission Date: 10/12/20 *Reason for consult:: Injury left hip *History of present illness: 74-year-old female admitted to hospital from the ED yesterday for observation following a fall about 5 days ago. Patient reports that she fell 5 days ago onto her left side and reports extensive bruising and pain over the left flank as well as left hip region. She was sent to ER from the [facility] as the physical therapist was concerned about possible splenic injury and left hip injury. Evaluation in the ER including CT scan of the left hip did not show any acute bony injury. Patient previously had a left hip fracture which was initially fixed with DHS and this was converted to a total hip arthroplasty about a year ago in [place]. Patient reports that she has an antibiotic spacer as opposed to definitive implants. She recently fractured her right ankle for which she is being treated in a short arm cast; she is under care of my partner, Dr. Ross for this. Patient reports that she has an appointment to see Dr. Ross tomorrow for removal of the cast. Patient reports that she has been feeling lightheaded when she gets up for mobilization. She has multiple medical problems including anxiety, Arrhythmia, Atrial Fibrillation, Cardiomyopathy, Congestive Heart Failure, Chronic Obstructive Pulmonary Disease (COPD), Congenital Heart Disease, Coronary Artery Disease, Deep Vein Thrombosis, Gastroesophageal Reflux Disease(GERD), Hyperlipidemia, Hypertension, MRSA, Myocardial Infarction, Palpitations, Valvular Heart Disease. [facility] History I have reviewed the patient's past medical history: Yes Medical History: Reports:: Anxiety, Arrhythmia, Atrial Fibrillation, Cardiomyopathy, Congestive Heart Failure, Chronic Obstructive Pulmonary Disease (COPD), Congenital Heart Disease, Coronary Artery Disease, Deep Vein Thrombosis, Gastroesophageal Reflux Disease(GERD), Hyperlipidemia, Hypertension, MRSA, Myocardial Infarction, Palpitations, Valvular Heart Disease Denies:: Cancer, Diabetes Mellitus Type 1, Diabetes Mellitus Type 2, Internal Pacemaker *Have you ever received a pneumonia vaccine?: Yes *Have you received a flu vaccine this season?: No Other Medical History: Reports: Anemia, Arthritis, Cataracts, Fibromyalgia, Hypothyroidism, Sinus Problems, Thyroid Disease Laterality Cases: Left: Arthroscopy Hip, Right: Carpal Tunnel Release Other Surgeries: Yes: Appendectomy, Cardiac Catheterization, Cholecystectomy, Colonoscopy, Hysterectomy-Total, Tubal Ligation, Other. No: Pacemaker Amputation: No Fractures: Yes - *Social History Last grade of school completed: High school graduate Smoking Status: Former smoker Tobacco Type: cigarettes # Packs/Day (cigarettes): 1 #Yrs smoked (if former smoker): 40 Alcohol Intake: never Substance Use Type: denies use *Occupational Status:: retired Housing: assisted living facility Household Members: family, children *Travel in the last 8 weeks: None - Psychiatric History Pschychiatric History:: Reports:: Anxiety Family Hx:: Unable to obtain Review of Systems - Review of Systems Review of systems:: pertinent systems reviewed and negative unless documented below - Constitutional Denies chills, Denies fever(s) - Eyes Denies change in vision - ENT Denies abnormal hearing, Denies difficulty swallowing - *Cardiovascular Denies chest pain, Denies shortness of breath - *Respiratory Denies chest congestion, Denies cough - *Gastrointestinal Denies change in bowel habits - *Musculoskeletal Reports abnormal walking, Reports joint pain, Reports limited joint movement - *Neurologic Reports abnormal walking, Denies numbness, Denies tingling/numbness/burning sensations, Denies weakness - Endocrine Denies cold intolerance, Denies heat intolerance Meds Home Medications Medication Instructions Recorded Confirmed Type Pilocarpine HCl [Salagen] 7.5 mg PO TID 05/24/17 10/11/20 History Pantoprazole Sodium [Protonix 40mg 40 mg
--- NOTE | 2020-10-12 16:33 | PC.NURSE ---
Pt has been pleasant and cooperative this shift. A&O X4. Pt has complained of LT hip pain X1 and received Percocet per MAR with favorable results. Pt is currently receiving O2 via NC @ 4 LPM with sats. >90%. Lungs CTA. No edema noted. Skin is C/D/I. Pt ambulates with assistance X1 to/from the BSC and recliner. Pt has sat up in the chair for several hours. Urine is clear and yellow. No BM today. Appetite is fair and pt eats between 25-50% of all meals. Implanted port in the RT chest is accessed and SL. VSS. Call light within reach. Will continue to monitor.
--- NOTE | 2020-10-12 19:14 | PC.NURSE ---
DECREASED O2 TO 2.5LPM N/C
[2020-10-13] VITALS (14 sets, daily range): BP systolic 93–120; BP diastolic 32–89; PULSE 79–91; RESP 16–89; TEMP 36.6–36.9; O2SAT 92–98; BMI 32.2
--- NOTE | 2020-10-13 03:18 | PC.NURSE ---
No acute changes overnight. Pt A&O. No c/o pain this shift. Lungs diminished, on 4L NC. Bowel sounds x4, abd soft and nontender. Pt able to get up to BSC with 1 assist. Tolerates well. No edema noted. IV patent. VSS, call light in reach, no concerns at this time.
[2020-10-13 07:54] LABS: Basophils % 0.4 % (0.1-2.0); Eosinophils # 0.3 K/mm3 (0.0-0.4); Eosinophils % 4.4 % (0.1-12.0); Hematocrit 24.1 % (37.0-47.0); Hemoglobin 8.1 g/dL (12.2-16.2); Lymphocytes # 1.4 K/mm3 (0.7-4.5); Lymphocytes % 23.1 % (10-50); Mean Corpuscular HGB Conc 33.4 g/dL (31.8-35.4); Mean Corpuscular Hemoglobin 29.8 pg (27.0-31.2); Mean Corpuscular Volume 89.1 fl (81-99); Mean Platelet Volume 7.2 fl (7.4-10.4); Monocytes # 0.4 K/mm3 (0.1-1.0); Monocytes % 5.9 % (1.7-9.3); Neutrophils % 66.1 % (37.0-80.0); Platelet Count 207 K/mm3 (142-424); Red Blood Count 2.71 M/mm3 (4.20-5.40); Red Cell Distribution Width 13.7 % (11.5-17.5)
[2020-10-13 07:57] LABS: Blood Urea Nitrogen 13 mg/dl (7-17); Calcium 8.2 mg/dl (8.4-10.2); Carbon Dioxide 36 mmol/L (22.0-30.0); Chloride 99 mmol/L (98-107); Creatinine Clearance Estimated 54 mL/min (50-200); Estimated Glomerular Filt Rate 40 ml/min (>60); GFR (African American) 49 ML/MIN (>60); Glucose 91 mg/dl (74-100); Sodium 135 mmol/L (136-145)
--- NOTE | 2020-10-13 11:55 | HMH.PTEV ---
Physical Therapy Evaluation Rehab PT IP Evaluation Start: 10/12/20 21:34 Freq: ONCE Status: Active Protocol: Document 10/13/20 11:51 [email or web address] (Rec: 10/13/20 11:55 [id number] [id number]) Subjective/History History History THis is the initial IP PT evalaution for Marietta Ruiz. Pt is a 74 y/o female admitted to [facility] s/p fall at SNF. Pt has been in care at [facility] for care of self due to FX'd R tib /fib. Pt has been NWB on RLE. Pt had fall from commode and injured L hip Subjective Subjective Pt reports c/o L hip pain Rehab PT IP Eval Objective Appearance Patient Behavior Appropriate,Cooperative Patient Orientation Person,Place,Time Difficulty following instructions none Speech Pattern Clear,Appropriate Ambulation Patient Able to Ambulate No Balance Ability to Arise Able, uses arms to help Sitting Balance Steady, safe Standing Balance Unsteady Dynamic Sitting Balance Ability Good Dynamic Standing Balance Ability Poor Transfers Chair Transfer Ability Supervision/Stand by Sit to Stand Bed Transfer Ability Contact Guard/Hand Hold Sit to Stand Chair Transfer Ability Contact Guard/Hand Hold ROM RLE PT ROM Status ABN Abnormal ROM Comment ankle casted MMT RLE PT MMT ABN Abnormal MMT Grade NWB ankle casted Rehab PT IP prob,goals,plan Problems Date of Evaluation: 10/13/20 PT IP Problems Transfers,Gait,Balance,Self care,Safety Rehab Potential Rehab Potential Fair Equipment Needs Assistive Devices Rolling / Wheeled Walker Plan PT Intervention Plan Transfers,Gait,Balance,Self care,Therapeutic Exercise PT Plan Frequency BID Duration LOS Discharge Goals Bed Transfer Ability Contact Guard/Hand Hold Sit to Stand Chair Transfer Ability Contact Guard/Hand Hold Discharge Plan PT Discharge Plan Pt to return to SNF for continued therapy to return to PLOF - without skilled therapy pt at continued risk for falls, fractures, wounds, deconditioning and increased burden of care G -code Required Yes Eval Complexity Eval Charge Codes 59082 - Low Complexity G Codes PT Curre
--- NOTE | 2020-10-13 15:25 | XR_ITS ---
PROCEDURE: XR ANKLE RT 2V CLINICAL INDICATION: cast removal Follow-up fracture COMPARISON: CR XR ANKLE RT MIN 3V from 08/25/2020 CR XR ANKLE RT MIN 3V from 09/01/2020 CR XR ANKLE RT MIN 3V from 09/01/2020 CR XR ANKLE RT MIN 3V from 09/22/2020 FINDINGS: Lateral malleolar fracture line is still visible appears somewhat less apparent. Fragmentation noted the tip the lateral malleolus as before consistent with old injuries or ununited ossification center. The fibular fracture line is not identified on today's exam. There is an anterior distal tibial fracture once again noted. The talus is slightly everted. IMPRESSION: Healing distal tib fib fractures as described above. Dictated by: Carlos Starks MD 10/13/2020 17:39 Carlos Starks MD in [place] 10/13/2020 17:39
[2020-10-13 16:36] LABS: Hematocrit 28.6 % (37.0-47.0)
[2020-10-13 16:37] LABS: Hemoglobin 9.5 g/dL (12.2-16.2)
--- NOTE | 2020-10-13 17:15 | HMH.DCSUM ---
General - General Admission date:: 10/11/20 Discharge date: 10/13/20 HPI HPI: 74-year-old female patient presented [facility] ED [facility] after physical therapist was concerned about possible spleen injury and left hip injury from recent fall. Patient reports she she fell 5 days ago and has bruising and soreness on her left flank and left hip. She currently has a fractured right ankle also with cast intact sustained after a fall on August 19. Patient was also admitted in early August Of this year after she presented to the emergency department and was evaluated for weakness and with a history of anemia after R Ankle fracture. She was admitted for IV fluids and blood transfusions, she received 2 units of packed blood cells, strength was improved and she was discharged shortly thereafter. 10/11/[address]: FINDINGS: There is a left hip prosthesis in place with a radial lucent acetabular cup and a radiopaque ring. A metallic femoral head and femoral stem are present causing significant artifact. This could easily obscure a nondisplaced fracture. No displaced fracture is evident. There is an old left inferior pubic ramus fracture. Defect is present in the proximal left femur from prior dynamic screw removal. Postsurgical changes are present within the soft tissues of the hip laterally. Incidental note is made diverticulosis. Contrast is present in the left ureter from recent abdominal CT. IMPRESSION: No acute finding. Status post left hip arthroplasty with good alignment Dictated by: Carlos Starks MD 10/11/20 Abd/Pelvis CT: FINDINGS: LOWER THORAX: Mild left basilar atelectasis. Mild bronchial thickening in the lung bases. Coronary artery calcifications are present. ABDOMEN & PELVIS: Prior cholecystectomy. There is mild biliary ectasia. Common bile duct measures up to 12 mm does not appear significantly changed. Biliary dilatation may be secondary to reservoir effect from prior cholecystectomy. The spleen and pancreas have an unremarkable appearance as do the adrenal glands. There is an exophytic cyst projecting off the anterior aspect of the left kidney measuring 3.7 by 2.4 cm. No renal or ureteral calculi. No hydronephrosis. Bowel gas pattern is nonspecific with some fluid-filled loops of small and large bowel which do not appear dilated. There is mild amount of retained colonic feces. No evidence of diverticulitis or appendicitis. Colonic diverticulosis is present. Prior hysterectomy. No pelvic mass or abnormal fluid collection. Artifact is present from left hip prosthesis. Extensive degenerative changes are present in the lumbar spine with kyphosis and low bone density. Severe facet hypertrophic changes are noted. There are postsurgical changes with laminectomy defect at L3-L4. There is an epidural stimulator device present IMPRESSION: 1. No acute intra-abdominal findings. 2. Left basilar atelectasis. Dictated by: Carlos Starks MD 10/11/20 CXR: FINDINGS: The lung dinero are well expanded and appear clear of infiltrate. There is minimal postinflammatory scarring at the left base and left cardiophrenic angle. There is borderline cardiomegaly however the vascularity is normal. There is a MediPort catheter entering the right subclavian vein near the junction with the SVC with the tip in the SVC above the right atrium. There degenerate changes of both shoulders with heterotopic new bone formation seen just at the inferior lip of the glenoid with marked narrowing of the glenohumeral joint. There is multilevel degenerate changes of the thoracic spine with mild dextroscoliotic curvature. IMPRESSION: No acute findings Dictated by: Dr. Tom Carlton MD Hospital Course Hospital Course: Laboratory Tests 10/11/20 10/11/20 10/13/20 14:16 14:16 09:14 WBC 6.5 RBC 2.93 L Hgb 8.6 L Hct
--- NOTE | 2020-10-13 18:45 | PC.NURSE ---
Attempted to call report to [facility], nurse is busy and said she will call back
--- NOTE | 2020-10-13 18:51 | P.PN_ITS ---
Subjective Date: 10/13/20 Time: 15:30 Principal diagnosis: 1. Contusion, left hip 2. Ankle fracture follow-up, left Interval history: Patient reports that she is doing well. She reports no problems in relation to her right ankle fracture. No history of any distal tingling or numbness. She is being discharged today. PN: Obj Ex Vital signs: Temp Pulse Resp BP Pulse Ox 98.3 F 85 17 115/48 L 96 10/13/20 15:00 10/13/20 15:00 10/13/20 15:00 10/13/20 15:00 10/13/20 15:00 Narrative: Laboratory Results - last 24 hr 10/13/20 09:14: Blood Type O Positive, Antibody Screen Negative, Crossmatch (AHG) See Detail 10/13/20 16:23: Hgb 9.5 L D, Hct 28.6 L 10/13/20 : WBC 6.0, RBC 2.71 L, Hgb 8.1 L, Hct 24.1 L, MCV 89.1, MCH 29.8, MCHC 33.4, RDW 13.7, Plt Count 207, MPV 7.2 L, Neut % (Auto) 66.1, Lymph % (Auto) 23.1, [place] % (Auto) 5.9, Eos % (Auto) 4.4, Baso % (Auto) 0.4, Neut # (Auto) 4.0, Lymph # (Auto) 1.4, Crisp # (Auto) 0.4, Eos # (Auto) 0.3, Baso # (Auto) 0.0 10/13/20 : Sodium 135 L, Potassium 4.0, Chloride 99, Carbon Dioxide 36 H, Anion Gap 4.0 L, BUN 13, Creatinine 1.30 H, Estimated Creat Clear 54, Estimated GFR 40 L, Est GFR ( Amer) 49 L, Glucose 91, Calcium 8.2 L Exam: General appearance: alert, active, awake, no acute distress Cardiovascular: regular rate & rhythm, normal peripheral pulses Respiratory: No respiratory distress noted, speaks in full sentences ABD: soft and non tender Neuro: alert, awake, oriented x 3 Psych: Appropriate mood and affect On examination of the left lower extremity, the alignment is neutral.? She has a well-healed surgical scar over the lateral aspect of the left hip.? There is extensive ecchymosis around the left hip.? She is tender over the left hip and proximal femur on deep palpation.? She has good range of active and passive hip movements.? Distal neurovascular status is intact. On examination of her right lower extremity, she is a well fitting short leg cast.? Distal neurovascular status is intact. Diagnostic imaging: I have reviewed the x-rays and CT scan of her left hip along with radiologist report and noted the findings.? There is no evidence of any acute bony injury, fracture or dislocation. Progress Note: A&P (1) Contusion, hip Status: Acute Assessment and Plan for All Diagnoses:: I have reviewed the clinical and imaging findings with the patient. Patient is doing well from an orthopedic standpoint and she is being discharged today. I have recommended removal of the cast from the right ankle and transition into a cam walker boot. She can mobilize weightbearing as tolerated on both lower extremities. I have also recommended physical therapy to the right ankle. Recommend follow-up with her orthopedic surgeon in [place] for the left hip. All the questions were answered and the patient verbalized a good understanding. After discharge from the hospital, I would recommend follow-up with me in the office in 4 weeks with check x-ray right ankle.
--- NOTE | 2020-10-13 19:37 | PC.NURSE ---
Gave report to [facility] 1849-Spoke to [facility], they stated the next available transport would be between 2-3am and to see if [facility] would be available 1899- Spoke to [facility] and they said a soakers supervisor would be at [facility] shortly and to ask him 1924- Spoke to ER, [facility] dropped pt off already and has left 1935- Called [facility] back and they said when EMS Capon[facility] arrives back to the [facility], they will see if a transport is possible and will call 2nd floor charge nurse back
--- NOTE | 2020-10-13 20:00 | PC.NURSE ---
Spoke with [facility], states will be able to transfer back, however it will be several hours before they will be available.
--- NOTE | 2020-10-13 21:20 | PC.NURSE ---
PT WAS D/C VIA [facility] AT [id number]
--- NOTE | 2020-10-13 21:26 | PC.NURSE ---
PT HAS BEEN PICKED UP BY AMBULANCE SERVICE. PT DOING WELL.
== END 2020-10-13 21:25 ==
LOC: ER 16:10 → 2ND 17:58
PROVIDERS: Nurse Practitioner Family; Admitting Provider Emergency Medicine; Emergency Provider Emergency Medicine; PCP Emergency Medicine; Visit Provider Emergency Medicine
DX: M25.552 Pain in left hip (principal); L89.151 Pressure ulcer of sacral region, stage 1; I48.91 Unspecified atrial fibrillation; I50.9 Heart failure, unspecified; I10 Essential (primary) hypertension; I42.9 Cardiomyopathy, unspecified; E03.9 Hypothyroidism, unspecified; Z88.2 Allergy status to sulfonamides; Z88.8 Allergy status to other drugs, medicaments and biological substances; Z79.899 Other long term (current) drug therapy; Z79.51 Long term (current) use of inhaled steroids; S82.841D Displaced bimalleolar fracture of right lower leg, subsequent encounter for closed fracture with routine healing; S70.02XA Contusion of left hip, initial encounter; Z91.81 History of falling; R29.6 Repeated falls
CPT/HCPCS: 73600; 73700; 74177; 80048; 80053; 85014; 85018; 85025; 86850; 87070; 87077; 87186; 87205; 94640; 94760; 94761; 97110; 97161; 99284; G0378; P9016; Q9967; U0003

== ENCOUNTER → 2020-11-14 13:17 | Outpatient (CLI) | payer MEDICARE, SELFPAY ==
--- NOTE | 2020-11-14 13:22 | XR_ITS ---
PROCEDURE: XR CHEST 2V CLINICAL HISTORY: mrsa COMPARISON: CT CHESTWO CT chest wo con from 12/18/2018 CR XR CHEST 2V from 03/04/2020 CR XR CHEST PORTABLE from 08/20/2020 CR XR CHEST 2V from 09/01/2020 CR XR CHEST AP from 10/05/2020 FINDINGS: The cardiomediastinal silhouette and pulmonary vascularity are within normal limits. There is a right subclavian MediPort catheter present. The tip is in the region the SVC. Chronic changes are present in the right lung base and in the right middle lobe anteriorly. IMPRESSION: No acute findings. Dictated by: Carlos Starks MD 11/14/2020 17:32 Carlos Starks MD in [place] 11/14/2020 17:32
== END ==
PROVIDERS: PCP Emergency Medicine; Visit Provider Internal Medicine Pulmonary Disease
DX: Z86.14 Personal history of Methicillin resistant Staphylococcus aureus infection (principal); R06.00 Dyspnea, unspecified
CPT/HCPCS: 71046

== ENCOUNTER 2020-11-18 10:16 | Outpatient (CLI) | payer MEDICARE, SELFPAY ==
--- NOTE | 2020-11-18 10:27 | XR_ITS ---
PROCEDURE: XR ANKLE RT MIN 3V CLINICAL INDICATION: Rt ankle fracture COMPARISON: CR XR ANKLE RT MIN 3V from 09/01/2020 CR XR ANKLE RT MIN 3V from 09/01/2020 CR XR ANKLE RT MIN 3V from 09/22/2020 CR XR ANKLE RT 2V from 10/13/2020 FINDINGS: Healing fractures noted involving the distal fibula. An old avulsion fracture involves the tip the lateral malleolus. There is a transverse fracture at the base of the medial malleolus. Fracture line is becoming less apparent. Bony hypertrophic changes are present at the medial malleolar region. Avulsion fracture of the anterior distal tib also noted not significantly changed. Degenerative changes are present at the ankle joint IMPRESSION: Healing distal tib fib fractures with good alignment Dictated by: Carlos Starks MD 11/18/2020 11:59 Carlos Starks MD in [place] 11/18/2020 11:59
[2020-11-18 12:10] VITALS: BP 130/54; PULSE 84; RESP 20; O2SAT 99
[2020-11-18 14:15] VITALS: BP 140/52; PULSE 87; RESP 20
== END 2020-11-18 14:15 | disposition home or self-care (01) ==
PROVIDERS: PCP Emergency Medicine; Visit Provider Internal Medicine Critical Care Medicine
DX: S82.899A Other fracture of unspecified lower leg, initial encounter for closed fracture (principal); D80.3 Selective deficiency of immunoglobulin G [IgG] subclasses
CPT/HCPCS: 73610; 96365; J1568; J1642

== ENCOUNTER 2020-12-09 19:47 | Observation (INO) | payer MEDICARE, SELFPAY ==
--- NOTE | 2020-12-09 19:45 | ECG_ITS ---
APPROVED REPORT Exam: Resting ECG HR:112 bpm ECG Measurements Heart Rate 112 AXES IN 160 P 1 QRSd 118 QRS 17 QT 368 T 30 QTc 502 Conclusion Sinus tachycardia Low voltage QRS Right bundle branch block Abnormal ECG Electronically signed by : Asad Butcher, 12/10/2020 15:16:58
[2020-12-09 19:47] VITALS: BP 111/66; PULSE 109; RESP 26; TEMP 38.9; O2SAT 100; BMI 29.9
[2020-12-09 19:57] LABS: ABG Base Excess 7.9 mmol/L (-2.4-2.3); ABG HCO3 32.9 mmhg (22.0-26.0); ABG Oxygen Saturation 99 % (90-100); ABG PH 7.39 mmol/L (7.35-7.45); ABG PO2 201.3 mmhg (80-100); ABG TCO2 34.6 mmhg (23-27)
[2020-12-09 19:59] LABS: Allen's Test Acceptable; Source Right Radial
[2020-12-09 20:01] LABS: ABG PCO2 56.1 mmhg (35.0-45.0)
--- NOTE | 2020-12-09 20:05 | XR_ITS ---
PROCEDURE INFORMATION: Exam: XR Chest Exam date and time: 12/09/20 08:05 PM Age: 75 years old Clinical indication: Shortness of breath; Patient HX: SOA, HX smoker TECHNIQUE: Imaging protocol: XR of the chest. Views: 1 view. COMPARISON: CR XR CHEST 2V 11/14/20 01:27 PM FINDINGS: Tubes, catheters and devices: Right IJ MediPort catheter overlies the SVC. Lungs: Hyperexpanded lungs. Pleural spaces: Blunting of the left costophrenic angle. Heart/Mediastinum: Unremarkable. No cardiomegaly. Bones/joints: Severe osteoarthritic changes left shoulder. Right distal clavicle resection. IMPRESSION: 1. Hyperexpanded lungs. 2. Blunting of the left costophrenic angle.
[2020-12-09 20:18] LABS: Basophils % 0.3 % (0.1-2.0); Eosinophils # 0.2 K/mm3 (0.0-0.4); Eosinophils % 1.7 % (0.1-12.0); Hematocrit 28.1 % (37.0-47.0); Hemoglobin 9.5 g/dL (12.2-16.2); Lymphocytes # 1.2 K/mm3 (0.7-4.5); Lymphocytes % 11.1 % (10-50); Mean Corpuscular HGB Conc 33.8 g/dL (31.8-35.4); Mean Corpuscular Hemoglobin 30.1 pg (27.0-31.2); Mean Corpuscular Volume 89.2 fl (81-99); Mean Platelet Volume 7.5 fl (7.4-10.4); Monocytes # 0.4 K/mm3 (0.1-1.0); Monocytes % 3.5 % (1.7-9.3); Neutrophils # 9.3 K/mm3 (1.8-7.8); Neutrophils % 83.4 % (37.0-80.0); Platelet Count 202 K/mm3 (142-424); Red Blood Count 3.15 M/mm3 (4.20-5.40); Red Cell Distribution Width 13.9 % (11.5-17.5); White Blood Count 11.2 K/mm3 (4.8-10.8)
[2020-12-09 20:22] LABS: Chloride 99 mmol/L (98-107); Potassium 4.4 mmoL/L (3.5-5.1); Sodium 138 mmol/L (136-145)
[2020-12-09 20:23] LABS: Microscopic, Urine URINE MICROSCOPIC (MICROSCOPIC)
[2020-12-09 20:24] LABS: Alanine Aminotransferase 12 U/L (12-78); Alkaline Phosphatase 104 U/L (38-126); Aspartate Amino Transferase 19 U/L (14-36); Bilirubin,Total 0.2 mg/dl (0.2-1.3); Blood Urea Nitrogen 17 mg/dl (7-17); Creatinine Clearance Estimated 54 mL/min (50-200); Estimated Glomerular Filt Rate 44 ml/min (>60); GFR (African American) 53 ML/MIN (>60)
[2020-12-09 20:24] LABS: Appearance,Urine CLEAR (Clear); Bilirubin,Urine Negative (Negative); Blood, Urine Negative (Negative); Color,Urine YELLOW (Yellow); Glucose,Urine (UA) Negative (Negative); Ketones,Urine Negative (Negative); Leukocyte Esterase,Urine Negative (Negative); Nitrate,Urine Negative (Negative); PH,Urine 5.5 (5.0-8.5); Protein,Urine Negative (Negative); Specific Gravity, Urine 1.025 (1.005-1.030); Urobilinogen,Urine 0.2 EU/dl (0.2)
[2020-12-09 20:25] LABS: Albumin Level 3.6 g/dl (3.5-5.0); Albumin/Globulin Ratio 1.2 (1.1-1.8); Anion Gap 11.4 mEq/L (5-15); Calcium 8.2 mg/dl (8.4-10.2); Carbon Dioxide 32 mmol/L (22.0-30.0); Glucose 105 mg/dl (74-100); Lactic Acid 1.1 mmol/L (0.7-2.1); Total Protein,Serum 6.6 g/dl (6.3-8.2)
[2020-12-09 20:30] VITALS: PULSE 65; PULSE 78
[2020-12-09 20:30] LABS: C-Reactive Protein 25.7 mg/L (0-4)
[2020-12-09 20:32] LABS: RBC,Urine Occasional #/hpf (0-3); WBC,Urine Occasional #/hpf (0-3)
--- NOTE | 2020-12-09 20:32 | HMH.EDSOB ---
ED Disposition Clinical Impression: Elevated erythrocyte sedimentation rate, COPD with respiratory failure, acute, COPD (chronic obstructive pulmonary disease) with acute bronchitis, SIRS (systemic inflammatory response syndrome) Anemia Qualifiers: Anemia type: unspecified type Qualified Code(s): D64.9 - Anemia, unspecified Disposition: Admitted As Inpatient Condition on Discharge: Good - Critical Care Critical Care Time: No Attestation: On 12/09/20, the high probability of a clinically significant, sudden or life threatening deterioration of the following system(s) required my full and direct attention, intervention and personal management. The time I documented below is in addition to time spent performing reported procedures but includes the following listed in this critical care notation. Medical Decision Making - Medical Records Medical records reviewed: Yes: I reviewed the patient's medical records. - Julius Inquiry Pt receiving controlled substance: No Vital Signs: 12/09/20 19:47 Temperature 102.1 F H Temperature Source Rectal Pulse Rate [Right] 109 H Respiratory Rate 26 H Blood Pressure [Right Arm] 111/66 Blood Pressure Mean [Right Arm] 81 02 Sat by Pulse Oximetry 100 Oxygen Delivery Method Non-Rebreather - Lab Data Lab results reviewed: Yes: I reviewed the patient's lab results. Lab Results 12/09/20 19:50: Specimen Source Right radial, O2 % 15lpm, ABG pH 7.39, ABG pCO2 56.1 H, ABG pO2 201.3 H, ABG HCO3 32.9 H, ABG Total CO2 34.6 H, ABG O2 Saturation 99, ABG Base Excess 7.9 H, Carlos Test Acceptable 12/09/20 20:05: WBC 11.2 H, RBC 3.15 L, Hgb 9.5 L, Hct 28.1 L, MCV 89.2, MCH 30.1, MCHC 33.8, RDW 13.9, Plt Count 202, MPV 7.5, Neut % (Auto) 83.4 H, Lymph % (Auto) 11.1, [place] % (Auto) 3.5, Eos % (Auto) 1.7, Baso % (Auto) 0.3, Neut # (Auto) 9.3 H, Lymph # (Auto) 1.2, [place] # (Auto) 0.4, Eos # (Auto) 0.2, Baso # (Auto) 0.0, ESR 105 H 12/09/20 20:05: Sodium 138, Potassium 4.4, Chloride 99, Carbon Dioxide 32 H, Anion Gap 11.4, BUN 17, Creatinine 1.20 H, Estimated Creat Clear 54, Estimated GFR 44 L, Est GFR ( Amer) 53 L, Glucose 105 H, Calcium 8.2 L, Total Bilirubin 0.2, AST 19, ALT 12, Alkaline Phosphatase 104, Troponin I < 0.01, C-Reactive Protein 25.7 H, NT-Pro-B Natriuret Pep 254 H, Total Protein 6.6, Albumin 3.6, Globulin 3.0, Albumin/Globulin Ratio 1.2, Procalcitonin 0.300 12/09/20 20:05: Lactate 1.1 12/09/20 20:15: Urine Color Yellow, Urine Appearance Clear, Urine pH 5.5, Ur Specific Gilbert 1.025, Urine Protein Negative, Urine Glucose (UA) Negative, Urine Ketones Negative, Urine Blood Negative, Urine Nitrate Negative, Urine Bilirubin Negative, Urine Urobilinogen 0.2, Ur Leukocyte Esterase Negative, Urine RBC Occasional, Urine WBC Occasional, Ur Squamous Epith Cells None, Urine Bacteria None Result diagrams: 12/09/20 20:05 12/09/20 20:05 Orders (Tests/Meds): ED MEDICATIONS Generic Name Dose Route Start Last Admin Trade Name Freq PRN Reason Stop Dose Admin Sodium Chloride 1,000 mls @ 999 mls/hr 12/09/20 20:15 12/09/20 20:24 Sod Chlor 0.9% 1000ml Bag IV 12/09/20 21:15 999 mls/hr .Q1H1M DARLING Administration Vancomycin HCl 1,500 mg/ 250 mls @ 125 mls/hr 12/09/20 21:15 Sodium Chloride IV 12/23/20 21:14 Q24H DARLING Protocol Sodium Chloride 3 ml 12/09/20 21:09 Sodium Chloride 3% 15ml Neb IH 01/08/21 21:08 ONCE PRN INDUCE SPUTUM COLLECTION Discontinued Medications Generic Name Dose Route Start Last Admin Trade Name Freq PRN Reason Stop Dose Admin Acetaminophen 1,000 mg 12/09/20 20:18 12/09/20 20:24 Acetaminophen 500mg Tab PO 12/09/20 20:19 1,000 mg ONCE ONE Administration Albuterol/Ipratropium 3 ml 12/09/20 20:23 Ipratropium/Albuterol 3 Ml Neb IH 12/09/20 20:24 ONCE ONE Ibuprofen 600 mg 12/09/20 20:18 12/09/20 20:24 Ibuprofen 600 Mg Tablet PO 12/09/20 20:19 600 mg ONCE ONE Administration Methylprednisolone Sodium Succ
[2020-12-09 20:33] VITALS: BP 101/53; PULSE 110; RESP 22; O2SAT 95
[2020-12-09 20:36] LABS: NT Pro Brain Natriuretic Pep. 254 pg/mL (0-125)
[2020-12-09 20:41] LABS: Troponin I < 0.01 ng/ml (0.00-0.034)
[2020-12-09 20:45] LABS: Erythrocyte Sedimentation Rate 105 mm/hr (0-30)
[2020-12-09 21:01] LABS: Coronavirus 19, PCR Not Detected (NotDetected); Influenza A, PCR Not Detected (NotDetected); Influenza B, PCR Not Detected (NotDetected)
[2020-12-09 21:12] VITALS: BMI 31.1
--- NOTE | 2020-12-09 21:30 | PC.NURSE ---
Pt Password is Angy
[2020-12-09 22:00] VITALS: BP 112/54; PULSE 104; RESP 22; O2SAT 96
[2020-12-09 22:14] VITALS: BP 101/53; PULSE 98; RESP 26; O2SAT 98
[2020-12-09 22:21] VITALS: BP 101/53; PULSE 98; RESP 24; TEMP 37.2; O2SAT 98
--- NOTE | 2020-12-09 22:24 | PC.NURSE ---
patient up to floor via stretcher.
[2020-12-09 23:49] LABS: Troponin I < 0.01 ng/ml (0.00-0.034)
[2020-12-10] VITALS (11 sets, daily range): BP systolic 101–151; BP diastolic 50–77; PULSE 80–100; RESP 18–20; TEMP 36.5–37.2; O2SAT 92–98; BMI 30.8
[2020-12-10 02:43] LABS: Troponin I < 0.01 ng/ml (0.00-0.034)
--- NOTE | 2020-12-10 03:35 | PC.NURSE ---
pt alert and oriented. admitted for sirs and copd. 3LNC in place. port accessed and infusing per order. sputum ordered but have been unable to obtain this far. vss. call light in reach. will continue to monitor.
[2020-12-10 05:30] LABS: Basophils % 0.1 % (0.1-2.0); Eosinophils # 0.1 K/mm3 (0.0-0.4); Hemoglobin 9.5 g/dL (12.2-16.2); Lymphocytes # 0.2 K/mm3 (0.7-4.5); Lymphocytes % 1.6 % (10-50); Mean Corpuscular HGB Conc 33.4 g/dL (31.8-35.4); Mean Corpuscular Hemoglobin 30.1 pg (27.0-31.2); Mean Corpuscular Volume 90.3 fl (81-99); Mean Platelet Volume 7.2 fl (7.4-10.4); Monocytes # 0.1 K/mm3 (0.1-1.0); Monocytes % 0.7 % (1.7-9.3); Neutrophils # 13.4 K/mm3 (1.8-7.8); Neutrophils % 96.6 % (37.0-80.0); Platelet Count 193 K/mm3 (142-424); Red Blood Count 3.15 M/mm3 (4.20-5.40); Red Cell Distribution Width 14.1 % (11.5-17.5); White Blood Count 13.9 K/mm3 (4.8-10.8)
[2020-12-10 05:32] LABS: Hematocrit 28.4 % (37.0-47.0)
[2020-12-10 05:34] LABS: MANUAL DIFFERENTIAL MANUAL DIFFERENTIAL (MANUAL DIFF)
[2020-12-10 05:39] LABS: Chloride 103 mmol/L (98-107); Sodium 139 mmol/L (136-145)
[2020-12-10 05:40] LABS: Potassium 4.9 mmoL/L (3.5-5.1)
[2020-12-10 05:43] LABS: Anion Gap 8.9 mEq/L (5-15); Blood Urea Nitrogen 18 mg/dl (7-17); Calcium 8.2 mg/dl (8.4-10.2); Carbon Dioxide 32 mmol/L (22.0-30.0); Creatinine Clearance Estimated 61 mL/min (50-200); Estimated Glomerular Filt Rate 49 ml/min (>60); GFR (African American) 59 ML/MIN (>60); Magnesium 2.1 mg/dl (1.6-2.3)
[2020-12-10 05:45] LABS: Glucose 151 mg/dl (74-100)
[2020-12-10 05:48] LABS: Lymphocytes % 5 % (10-50); Neutrophils % 89 % (42-76); Platelet Estimate Normal; RBC Morphology Normal; Total Cells Counted 100
--- NOTE | 2020-12-10 07:01 | PC.NURSE ---
pt given 6am neb treatment and given a cup for sputum at his time. Will induce if she can't produce by afternoon treatment.
--- NOTE | 2020-12-10 07:37 | HMH.HP ---
*Admission Date: 12/09/20 *Chief complaint: sob *History of present illness: this pt was sent from [facility] with prod cough and sob with assoc fever which has increased over the last few days - pt has hx of resp dis with prev mrsa infection - pt was seen in the ed adn admitted with ivf and abx - H History I have reviewed the patient's past medical history: Yes Medical History: Reports:: Anxiety, Arrhythmia, Atrial Fibrillation, Cardiomyopathy, Congestive Heart Failure, Chronic Obstructive Pulmonary Disease (COPD), Congenital Heart Disease, Coronary Artery Disease, Deep Vein Thrombosis, Gastroesophageal Reflux Disease(GERD), Hyperlipidemia, Hypertension, MRSA, Myocardial Infarction, Palpitations, Valvular Heart Disease Denies:: Cancer, Diabetes Mellitus Type 1, Diabetes Mellitus Type 2, Internal Pacemaker *Have you ever received a pneumonia vaccine?: Yes *Have you received a flu vaccine this season?: Yes Other Medical History: Reports: Anemia, Arthritis, Cataracts, Fibromyalgia, Hypothyroidism, Sinus Problems, Thyroid Disease Laterality Cases: Left: Arthroscopy Hip, Right: Carpal Tunnel Release Other Surgeries: Yes: Appendectomy, Cardiac Catheterization, Cholecystectomy, Colonoscopy, Hysterectomy-Total, Tubal Ligation, Other. No: Pacemaker Amputation: No Fractures: Yes - *Social History Smoking Status: Former smoker Tobacco Type: cigarettes # Packs/Day (cigarettes): 0 #Yrs smoked (if former smoker): 40 Alcohol Intake: never Substance Use Type: denies use *Occupational Status:: disabled Housing: care home Household Members: other *Travel in the last 8 weeks: None - Psychiatric History Pschychiatric History:: Reports:: Anxiety Family Hx:: Unable to obtain Review of Systems - Review of Systems Review of systems:: pertinent systems reviewed and negative unless documented below - Constitutional Reports fever(s) - Eyes Denies change in vision - ENT Denies sore throat - *Cardiovascular Reports shortness of breath, Denies chest pain - *Respiratory Reports cough, Reports shortness of breath, Denies coughing up blood - *Gastrointestinal Denies abdominal pain - *Genitourinary Denies blood in urine - *Musculoskeletal Denies joint pain - Integumentary/Breasts Denies rash - *Neurologic Denies headache(s), Denies seizure-like activity - Psychiatric Denies anxiety Meds Home Medications Medication Instructions Recorded Confirmed Type Pilocarpine HCl [Salagen] 7.5 mg PO TID 05/24/17 12/09/20 History Pantoprazole Sodium [Protonix 40mg 40 mg PO DAILY 10/28/18 12/09/20 History tablet] guaiFENesin [Mucinex] 1,200 mg PO BID 05/25/19 12/09/20 History Promethazine HCl 12.5 mg PO Q6HP PRN 07/13/19 12/09/20 History Roflumilast [Daliresp] 500 mcg PO DAILY 07/13/19 12/09/20 History Acetaminophen 500 mg PO BIDP PRN 08/12/20 12/09/20 History Albuterol Sulfate [Albuterol 2 puffs IH Q6HP PRN 08/12/20 12/09/20 History Sulfate Hfa] Ferrous Sulfate [Ferrous Sulfate 325 mg PO DAILY 08/12/20 12/09/20 History 325mg Tablet] Fluticasone Propionate [Flonase 1 spr NS DAILY 08/12/20 12/09/20 History 50mcg nasal spray 16gm] Hydrocortisone 10 mg PO DAILY #30 tab 08/15/20 12/09/20 Rx Fluoxetine HCl 40 mg PO DAILY 08/19/20 12/09/20 History Hydrocortisone 5 mg PO HS 08/21/20 12/09/20 History Montelukast Sodium [Singulair] 10 mg PO HS 08/21/20 12/09/20 History Atorvastatin Calcium [Lipitor 40mg 40 mg PO HS 10/05/20 12/09/20 History Tablet*] Hydroxychloroquine Sulfate 200 mg PO BID 10/05/20 12/09/20 History [Plaquenil 200mg tablet] ondansetron HCL [Zofran 4mg Tab*] 4 mg PO Q4HP PRN 10/05/20 12/09/20 History polyethylene glycoL 3350 [Miralax 17 gm PO DAILY 10/05/20 12/09/20 History 17gm Packet] Budesonide/Formoterol Fumarate 2 puffs IH BID 10/12/20 12/09/20 History [Symbicort 160-4.5 Mcg Inhaler] Bumetanide 1 mg PO DAILY 10/12/20 12/09/20 History Lactulose [Lactulose 20gm/30ml 20 gm PO DAILYP PRN
--- NOTE | 2020-12-10 09:07 | HMH.PHACONS ---
- Pharmacy Consult Date: 12/10/20 Time: 09:07 Referring provider: DR. PALACIO Reason for Consult:: VANCOMYCIN DOSING Allergies and ADEs:: Allergies Allergy/AdvReac Type Severity Reaction Status Date / Time hydrocodone [HYDROCODONE] Allergy Severe dizziness, Verified 11/18/20 11:23 n/v codeine [CODEINE] Allergy Intermediate dizziness. Verified 11/18/20 11:23 n/v Sulfa (Sulfonamide AdvReac Mild n/v Verified 11/18/20 11:23 Antibiotics) [SULFA (SULFONAMIDE ANTIBIOTICS)] Home Medications:: Home Medications Medication Instructions Recorded Confirmed Type Pilocarpine HCl [Salagen] 7.5 mg PO TID 05/24/17 12/09/20 History Pantoprazole Sodium [Protonix 40mg 40 mg PO DAILY 10/28/18 12/09/20 History tablet] guaiFENesin [Mucinex] 1,200 mg PO BID 05/25/19 12/09/20 History Promethazine HCl 12.5 mg PO Q6HP PRN 07/13/19 12/09/20 History Roflumilast [Daliresp] 500 mcg PO DAILY 07/13/19 12/09/20 History Acetaminophen 500 mg PO BIDP PRN 08/12/20 12/09/20 History Albuterol Sulfate [Albuterol 2 puffs IH Q6HP PRN 08/12/20 12/09/20 History Sulfate Hfa] Ferrous Sulfate [Ferrous Sulfate 325 mg PO DAILY 08/12/20 12/09/20 History 325mg Tablet] Fluticasone Propionate [Flonase 1 spr NS DAILY 08/12/20 12/09/20 History 50mcg nasal spray 16gm] Hydrocortisone 10 mg PO DAILY #30 tab 08/15/20 12/09/20 Rx Fluoxetine HCl 40 mg PO DAILY 08/19/20 12/09/20 History Hydrocortisone 5 mg PO HS 08/21/20 12/09/20 History Montelukast Sodium [Singulair] 10 mg PO HS 08/21/20 12/09/20 History Atorvastatin Calcium [Lipitor 40mg 40 mg PO HS 10/05/20 12/09/20 History Tablet*] Hydroxychloroquine Sulfate 200 mg PO BID 10/05/20 12/09/20 History [Plaquenil 200mg tablet] ondansetron HCL [Zofran 4mg Tab*] 4 mg PO Q4HP PRN 10/05/20 12/09/20 History polyethylene glycoL 3350 [Miralax 17 gm PO DAILY 10/05/20 12/09/20 History 17gm Packet] Budesonide/Formoterol Fumarate 2 puffs IH BID 10/12/20 12/09/20 History [Symbicort 160-4.5 Mcg Inhaler] Bumetanide 1 mg PO DAILY 10/12/20 12/09/20 History Lactulose [Lactulose 20gm/30ml 20 gm PO DAILYP PRN 10/12/20 12/09/20 History Oral Soln] Loratadine [Allerclear] 10 mg PO DAILY 10/12/20 12/09/20 History Oxybutynin Chloride [Oxybutynin 20 mg PO DAILY 10/12/20 12/09/20 History Chloride ER] Trazodone HCl 100 mg PO HS 10/12/20 12/09/20 History oxycodone-acetaminophen 5 mg-325 1 tab PO Q6HP PRN #120 tab 11/02/20 12/09/20 Rx mg tablet Acetaminophen 500 mg PO Q6 PRN 12/09/20 12/09/20 History Calcium Carbonate [Tums] 300 mg PO Q6 PRN 12/09/20 12/09/20 History Cholecalciferol (Vitamin D3) 1,000 unit PO DAILY 12/09/20 12/09/20 History [Vitamin D3 1,000 Unit Tab] Gabapentin 300 mg PO BID 12/09/20 12/09/20 History Guaifenesin/Dextromethorphan 10 ml PO Q6 PRN 12/09/20 12/09/20 History [Robitussin Cough-Chest Dm Liq] L.acidoph,Paracasei, B.lactis 1 each PO DAILY 12/09/20 12/09/20 History [Probiotic] Umeclidinium Ophir [Incruse 62.5 mcg IH HS 12/09/20 12/09/20 History Ellipta] ondansetron HCL [Zofran 4mg Tab*] 4 mg PO Q4RT PRN 12/09/20 12/09/20 History Height: 1.65 m Weight: 83.943 kg Laboratory Results:: Laboratory Results - last 24 hr 12/09/20 19:50: Specimen Source Right radial, O2 % 15lpm, ABG pH 7.39, ABG pCO2 56.1 H, ABG pO2 201.3 H, ABG HCO3 32.9 H, ABG Total CO2 34.6 H, ABG O2 Saturation 99, ABG Base Excess 7.9 H, Carlos Test Acceptable 12/09/20 20:05: WBC 11.2 H, RBC 3.15 L, Hgb 9.5 L, Hct 28.1 L, MCV 89.2, MCH 30.1, MCHC 33.8, RDW 13.9, Plt Count 202, MPV 7.5, Neut % (Auto) 83.4 H, Lymph % (Auto) 11.1, [place] % (Auto) 3.5, Eos % (Auto) 1.7, Baso % (Auto) 0.3, Neut # (Auto) 9.3 H, Lymph # (Auto) 1.2, [place] # (Auto) 0.4, Eos # (Auto) 0.2, Baso # (Auto) 0.0, ESR 105 H 12/09/20 20:05: Sodium 138, Potassium 4.4, Chloride 99, Carbon Dioxide 32 H, Anion Gap 11.4, BUN 17, Creatinine 1.20 H, Estimated Creat Clear 54, Estimated GFR 44 L, Est GFR ( Amer) 53 L, Glucos
--- NOTE | 2020-12-10 10:45 | HMH.PHAVTE ---
[facility] Pharmacy VTE Monitoring - Patient Demographics Admission date: 12/10/20 Report Date: 12/10/20 Time: 10:45 Allergies/Adverse Reactions: Patient Allergies hydrocodone [HYDROCODONE] Allergy (Severe, Verified 11/18/20 11:23) dizziness, n/v codeine [CODEINE] Allergy (Intermediate, Verified 11/18/20 11:23) dizziness. n/v Sulfa (Sulfonamide Antibiotics) [SULFA (SULFONAMIDE ANTIBIOTICS)] Adverse Reaction (Mild, Verified 11/18/20 11:23) n/v Height: 1.65 m Weight: 83.943 kg Patient Problems: Current Active Problems Anemia (Acute) Elevated erythrocyte sedimentation rate (Acute) History of MRSA infection of lungs (Acute) COPD with respiratory failure, acute (Acute) COPD (chronic obstructive pulmonary disease) with acute bronchitis (Acute) SIRS (systemic inflammatory response syndrome) (Acute) Obesity (BMI 30.0-34.9) (Acute) - VTE Risk Labs: VTE Related Lab Results Hgb 9.5 g/dL (12.2-16.2) L 12/10/20 05:20 Hct 28.4 % (37.0-47.0) L 12/10/20 05:20 Plt Count 193 K/mm3 (142-424) 12/10/20 05:20 BUN 18 mg/dl (7-17) H 12/10/20 05:20 Creatinine 1.10 mg/dl (0.52-1.04) H 12/10/20 05:20 Estimated Creat Clear 61 mL/min (50-200) 12/10/20 05:20 Was VTE Risk Assessment Performed: Yes VTE Score: 4 VTE Risk Level: Low Risk - Prophylaxis Types of VTE Prophylaxis: TEDS Knee High (ROSY HOSE ORDER PLACED)
--- NOTE | 2020-12-10 17:22 | PC.NURSE ---
Pt is alert and oriented x4. Pt has been pleasant t/o shift. Pt has had complaints of SOA. Pt was given neb tx and pt reported successful outcomes. Pt has tolerated 3 L nc well with sats above 90. Pt has martinez catheter in place draining clear, yellow urine. Pt currently sitting up in bed watching tv. Call light within reach. Will continue to monitor.
--- NOTE | 2020-12-10 23:29 | PC.NURSE ---
Patient complained of SOA at 2219. RN assessed vital signs and patient was 95% on 3L, which is her baseline and other VSS stable. RN informed patient that the scheduled methylprednisone would help patients SOA Patient refused methylprednisone and stated the medication was making her anxious and requested anxiety medication or she would not take medication. Dr mejia notified at 2232. No further orders given.
[2020-12-11] VITALS (11 sets, daily range): BP systolic 101–137; BP diastolic 49–69; PULSE 68–92; RESP 17–22; TEMP 36.9–37.2; O2SAT 3–99; BMI 30.3
--- NOTE | 2020-12-11 04:18 | PC.NURSE ---
Patient is A&Ox3. No complaints of pain. VSS. Patient was awake most of the night. Patient says she is anxious due to steroids and refuses them. No further concerns voiced to RN.
[2020-12-11 09:23] LABS: Eosinophils % 0.2 % (0.1-12.0); Hematocrit 26.2 % (37.0-47.0); Hemoglobin 8.6 g/dL (12.2-16.2); Lymphocytes # 0.7 K/mm3 (0.7-4.5); Lymphocytes % 6.1 % (10-50); Mean Corpuscular HGB Conc 32.9 g/dL (31.8-35.4); Mean Corpuscular Hemoglobin 29.7 pg (27.0-31.2); Mean Corpuscular Volume 90.3 fl (81-99); Monocytes # 0.6 K/mm3 (0.1-1.0); Monocytes % 4.8 % (1.7-9.3); Neutrophils # 10.1 K/mm3 (1.8-7.8); Neutrophils % 88.8 % (37.0-80.0); Platelet Count 210 K/mm3 (142-424); Red Cell Distribution Width 13.7 % (11.5-17.5); White Blood Count 11.4 K/mm3 (4.8-10.8)
[2020-12-11 09:39] LABS: MANUAL DIFFERENTIAL MANUAL DIFFERENTIAL (MANUAL DIFF)
[2020-12-11 09:40] LABS: Chloride 105 mmol/L (98-107); Sodium 140 mmol/L (136-145)
[2020-12-11 09:43] LABS: Blood Urea Nitrogen 19 mg/dl (7-17); Creatinine Clearance Estimated 65 mL/min (50-200); Estimated Glomerular Filt Rate 54 ml/min (>60); GFR (African American) 66 ML/MIN (>60)
[2020-12-11 09:44] LABS: Calcium 7.6 mg/dl (8.4-10.2); Carbon Dioxide 32 mmol/L (22.0-30.0); Glucose 107 mg/dl (74-100)
[2020-12-11 09:59] LABS: Lymphocytes % 13 % (10-50); Monocytes % 3 % (2-9); Neutrophils % 84 % (42-76); Platelet Estimate Normal; RBC Morphology Normal; Total Cells Counted 100
--- NOTE | 2020-12-11 10:10 | HMH.ACPN2 ---
Internal Medicine - PN: Subj *Date: 12/12/20 *Time: 08:52 Interval history: doing better - has pleuritic lt sided pain Exam Vital signs and Labs for Last 24 Hours: Temp Pulse Resp BP Pulse Ox 98.6 F 84 22 132/69 95 12/11/20 07:38 12/11/20 07:38 12/11/20 07:38 12/11/20 07:38 12/11/20 07:38 Laboratory Results - last 24 hr 12/11/20 09:06: WBC 11.4 H, RBC 2.90 L, Hgb 8.6 L, Hct 26.2 L, MCV 90.3, MCH 29.7, MCHC 32.9, RDW 13.7, Plt Count 210, MPV 7.0 L, Neut % (Auto) 88.8 H, Lymph % (Auto) 6.1 L, [place] % (Auto) 4.8, Eos % (Auto) 0.2, Baso % (Auto) 0.0 L, Neut # (Auto) 10.1 H, Lymph # (Auto) 0.7, [place] # (Auto) 0.6, Eos # (Auto) 0.0, Baso # (Auto) 0.0, Total Counted 100, Neutrophils % (Manual) 84 H, Lymphocytes % (Manual) 13, Monocytes % (Manual) 3, Platelet Estimate Normal, RBC Morphology Normal 12/11/20 09:06: Sodium 140, Potassium 4.0, Chloride 105, Carbon Dioxide 32 H, Anion Gap 7.0, BUN 19 H, Creatinine 1.00, Estimated Creat Clear 65, Estimated GFR 54 L, Est GFR ( Amer) 66, Glucose 107 H, Calcium 7.6 L I & O for Last 24 hours: Intake & Output 12/08/20 12/09/20 12/10/20 12/11/20 11:59 11:59 11:59 11:59 Intake Total 2241 / 2241 2692 / 2692 Output Total 900 / 900 1999 / 1999 Balance 1341 / 1341 692 / 692 Weight 185 lb 1 oz 182 lb 0.1 oz Microbiology Reports for the Last 24 Hours: Microbiology 12/09/20 07:50 Sputum - Expectorated Sputum Gram Stain - Final 12/09/20 07:50 Sputum - Expectorated Sputum Sputum Culture - Preliminary - Constitutional no acute distress - *Routine HEENT Exam Head: Present: normocephalic Eye: Present: EOMI, PERRL ENT: Present: mucous membranes dry - *Routine Neck Exam Present: supple - *Routine Respiratory Exam Present: decreased breath sounds - *Routine Cardiovascular Exam Present: RRR - *Routine Abdominal Exam Present: soft - *Routine Extremities Exam Absent: calf tenderness - *Routine Skin Exam Present: intact - *Routine Neurological Exam Present: alert, CN II-XII intact - Routine Psychiatric Exam Present: normal affect Assessment and Plan (1) Obesity (BMI 30.0-34.9) Status: Acute Category: Medical Code(s): E66.9 - Obesity, unspecified (2) Anemia Status: Acute Qualifiers: Anemia type: unspecified type Qualified Code(s): D64.9 - Anemia, unspecified Category: Medical Code(s): D64.9 - Anemia, unspecified (3) COPD (chronic obstructive pulmonary disease) with acute bronchitis Status: Acute Category: Medical Code(s): J44.0 - Chronic obstructive pulmonary disease with (acute) lower respiratory infection; J20.9 - Acute bronchitis, unspecified (4) COPD with respiratory failure, acute Status: Acute Category: Medical Code(s): J44.9 - Chronic obstructive pulmonary disease, unspecified; J96.00 - Acute respiratory failure, unspecified whether with hypoxia or hypercapnia (5) Elevated erythrocyte sedimentation rate Status: Acute Category: Medical Code(s): R70.0 - Elevated erythrocyte sedimentation rate (6) SIRS (systemic inflammatory response syndrome) Status: Acute Category: Medical Code(s): R65.10 - Systemic inflammatory response syndrome (SIRS) of non-infectious origin without acute organ dysfunction (7) History of MRSA infection of lungs Status: Acute Category: Medical Code(s): Z86.14 - Personal history of Methicillin resistant Staphylococcus aureus infection
--- NOTE | 2020-12-11 16:30 | PC.NURSE ---
Pt is A+Ox4 and has been pleasant t/o shift. Pt has tolerated 3 L nc well. Hayes catheter in place draining clear, light yellow urine by gravity. Pt was able to ambulate to chair and bedside commode with minimal assistance. Pt has had c/o nausea 2x this shift and was administered Zofran per MAR with successful outcomes. Pt currently sitting up in chair. Call light within reach. Will continue to monitor.
[2020-12-11 21:30] LABS: Vancomycin,Trough 13.1 ug/mL (5.0-10.0)
[2020-12-12] VITALS (11 sets, daily range): BP systolic 121–154; BP diastolic 54–84; PULSE 65–89; RESP 18–20; TEMP 36.6–37.1; O2SAT 92–98; BMI 30.4
[2020-12-12 01:57] LABS: Vancomycin,Peak 39.8 ug/ml (11-39)
--- NOTE | 2020-12-12 03:18 | PC.NURSE ---
Patient is A&O. no complaints of pain. VSS. Patient rested comfortably throughout shift. Complained of nausea, controlled with zofran. no further concerns voiced to RN.
[2020-12-12 06:43] LABS: Eosinophils # 0.1 K/mm3 (0.0-0.4); Eosinophils % 0.4 % (0.1-12.0); Hematocrit 26.5 % (37.0-47.0); Hemoglobin 8.9 g/dL (12.2-16.2); Lymphocytes # 0.3 K/mm3 (0.7-4.5); Lymphocytes % 2.7 % (10-50); Mean Corpuscular HGB Conc 33.6 g/dL (31.8-35.4); Mean Corpuscular Hemoglobin 30.5 pg (27.0-31.2); Mean Corpuscular Volume 90.6 fl (81-99); Mean Platelet Volume 6.2 fl (7.4-10.4); Monocytes # 0.5 K/mm3 (0.1-1.0); Monocytes % 4.1 % (1.7-9.3); Neutrophils # 11.6 K/mm3 (1.8-7.8); Neutrophils % 92.8 % (37.0-80.0); Platelet Count 186 K/mm3 (142-424); Red Blood Count 2.92 M/mm3 (4.20-5.40); Red Cell Distribution Width 12.7 % (11.5-17.5); White Blood Count 12.6 K/mm3 (4.8-10.8)
[2020-12-12 06:56] LABS: MANUAL DIFFERENTIAL MANUAL DIFFERENTIAL (MANUAL DIFF)
[2020-12-12 07:01] LABS: Anion Gap 9.6 mEq/L (5-15); Blood Urea Nitrogen 18 mg/dl (7-17); Calcium 7.8 mg/dl (8.4-10.2); Carbon Dioxide 32 mmol/L (22.0-30.0); Chloride 102 mmol/L (98-107); Creatinine Clearance Estimated 66 mL/min (50-200); Estimated Glomerular Filt Rate 61 ml/min (>60); GFR (African American) 74 ML/MIN (>60); Glucose 124 mg/dl (74-100); Potassium 4.6 mmoL/L (3.5-5.1); Sodium 139 mmol/L (136-145)
--- NOTE | 2020-12-12 08:00 | CA_ITS ---
APPROVED REPORT EXAM: Comprehensive 2D, Doppler, and color-flow Echocardiogram Psychology Professor: Court Salinas CRT Ht: 5 ft 4 in Wt: 183lbs BSA: 1.88 BP: 104/72 mmHg Indications: Congestive Heart Failure, COPD, Atrial Fibrillation, Palpitations, CAD, Hyperlipidemia, Cardiomyopathy, Hypertension/HDD 2D Dimensions LVOT 2.08 cm (M/F) 1.5-2.5 M-Mode Dimensions RVDd 3.02 cm (0.9-2.6) LA Diam 2.54 cm (1.9-4.0) LVDd 5.15 cm (3.5-5.7) Ao Diam 3.43 cm (2.0-3.7) LVDs 3.82 cm (3.5-5.7) IVSd 1.17 cm (0.6-1.1) PWd 0.72 cm (0.6-1.1) EF (Teich) 50.50% FS 25.80% EDV (Teich) 126.60 mL ESV (Teich) 62.70 mL LV Diastology E Decel Time 150.00 (160-240 msec) E/A Ratio 0.75 Aortic Valve AO Peak GR. 8.30 mmHg Mitral Valve MV E Max Moreno. 76.00 (40-130 cm/s) MV A Velocity 102.00 (40-130 cm/s) E/A Ratio 0.75 MV Decel. Time 150.00 (160-240 ms) MV PHT 44.00 ms Pulmonary Valve PV Peak Velocity 107.00 (50-150 cm/s) Tricuspid Valve TR P. Velocity 279.00 cm/s RAP Estimate 10.00 mmHg RVSP 41.20 mmHg Left Ventricle Technically difficult study because of the patient factors and poor acoustic windows. Left atrium is mildly enlarged, left ventricle is normal size, mild concentric left ventricular hypertrophy, visually estimated ejection fraction 55% with no regional wall motion abnormality, diastolic parameters are inconclusive. Right Ventricle Right atrium and right ventricle are mildly enlarged with normal contractility. Aortic Valve Aortic valve is minimally thickened and fibrosed, there is no aortic stenosis or aortic insufficiency. Mitral Valve Mitral valve grossly normal, there is trace mitral regurgitation. Tricuspid Valve Tricuspid grossly normal, there is trace tricuspid regurgitation, calculated right ventricular systolic pressure is 41 mmHg. Pulmonic Valve Pulmonic valve is poorly visualized. Great Vessels Aortic root is normal size. Inferior vena cava is normal size with normal inspiratory collapse. Pericardium No significant pericardial effusion noted. Conclusion 1. Technically difficult study because of the patient factors and poor acoustic windows. 2. Mild biatrial enlargement, normal left ventricular size, mild concentric left ventricular hypertrophy, visually estimated ejection fraction 55% with no regional wall motion abnormality, diastolic parameters are inconclusive. 3. Mildly enlarged right ventricle with normal contractility. 4. Trace mitral and tricuspid regurgitation, calculated right ventricular systolic pressure is 41 mmHg. 5. No significant pericardial effusion noted. Electronically signed by : Javed Gibson, 12/12/2020 21:59:23
--- NOTE | 2020-12-12 08:54 | HMH.ACPN2 ---
Internal Medicine - PN: Subj *Date: 12/12/20 *Time: 21:10 Interval history: looks better- has epigastric bloating Exam Vital signs and Labs for Last 24 Hours: Temp Pulse Resp BP Pulse Ox 97.8 F 70 18 138/79 96 12/12/20 08:00 12/12/20 08:00 12/12/20 08:00 12/12/20 08:00 12/12/20 08:00 Laboratory Results - last 24 hr 12/11/20 09:06: WBC 11.4 H, RBC 2.90 L, Hgb 8.6 L, Hct 26.2 L, MCV 90.3, MCH 29.7, MCHC 32.9, RDW 13.7, Plt Count 210, MPV 7.0 L, Neut % (Auto) 88.8 H, Lymph % (Auto) 6.1 L, [place] % (Auto) 4.8, Eos % (Auto) 0.2, Baso % (Auto) 0.0 L, Neut # (Auto) 10.1 H, Lymph # (Auto) 0.7, [place] # (Auto) 0.6, Eos # (Auto) 0.0, Baso # (Auto) 0.0, Total Counted 100, Neutrophils % (Manual) 84 H, Lymphocytes % (Manual) 13, Monocytes % (Manual) 3, Platelet Estimate Normal, RBC Morphology Normal 12/11/20 09:06: Sodium 140, Potassium 4.0, Chloride 105, Carbon Dioxide 32 H, Anion Gap 7.0, BUN 19 H, Creatinine 1.00, Estimated Creat Clear 65, Estimated GFR 54 L, Est GFR ( Amer) 66, Glucose 107 H, Calcium 7.6 L 12/11/20 21:00: Vancomycin Trough 13.1 H 12/12/20 01:03: Vancomycin Peak 39.8 H 12/12/20 06:16: WBC 12.6 H, RBC 2.92 L, Hgb 8.9 L, Hct 26.5 L, MCV 90.6, MCH 30.5, MCHC 33.6, RDW 12.7, Plt Count 186, MPV 6.2 L, Neut % (Auto) 92.8 H, Lymph % (Auto) 2.7 L, [place] % (Auto) 4.1, Eos % (Auto) 0.4, Baso % (Auto) 0.0 L, Neut # (Auto) 11.6 H, Lymph # (Auto) 0.3 L, [place] # (Auto) 0.5, Eos # (Auto) 0.1, Baso # (Auto) 0.0 12/12/20 06:16: Sodium 139, Potassium 4.6, Chloride 102, Carbon Dioxide 32 H, Anion Gap 9.6, BUN 18 H, Creatinine 0.90, Estimated Creat Clear 66, Estimated GFR 61, Est GFR ( Amer) 74, Glucose 124 H, Calcium 7.8 L I & O for Last 24 hours: Intake & Output 12/09/20 12/10/20 12/11/20 12/12/20 11:59 11:59 11:59 11:59 Intake Total 2241 / 2241 2692 / 2692 2375 / 2375 Output Total 900 / 900 1999 / 1999 4000 / 4000 Balance 1341 / 1341 692 / 692 -1625 / -1625 Weight 185 lb 1 oz 182 lb 0.1 oz 183 lb 0.2 oz Microbiology Reports for the Last 24 Hours: Microbiology 12/09/20 07:50 Sputum - Expectorated Sputum Gram Stain - Final 12/09/20 07:50 Sputum - Expectorated Sputum Sputum Culture - Preliminary Gram Negative Rods Gram Negative Rods#2 12/09/20 20:05 Blood Blood Culture - Preliminary NO GROWTH AFTER 48 HOURS 12/09/20 20:05 Blood Blood Culture - Preliminary NO GROWTH AFTER 48 HOURS - Constitutional no acute distress - *Routine HEENT Exam Head: Present: normocephalic Eye: Present: EOMI, PERRL ENT: Present: mucous membranes dry - *Routine Neck Exam Present: supple - *Routine Respiratory Exam Present: decreased breath sounds - *Routine Cardiovascular Exam Present: RRR, murmur, S4 - *Routine Abdominal Exam Present: distended - *Routine Extremities Exam Absent: calf tenderness - *Routine Skin Exam Present: intact - *Routine Neurological Exam Present: alert, CN II-XII intact - Routine Psychiatric Exam Present: normal affect Assessment and Plan (1) Obesity (BMI 30.0-34.9) Status: Acute Category: Medical Code(s): E66.9 - Obesity, unspecified (2) Anemia Status: Acute Qualifiers: Anemia type: unspecified type Qualified Code(s): D64.9 - Anemia, unspecified Category: Medical Code(s): D64.9 - Anemia, unspecified (3) COPD (chronic obstructive pulmonary disease) with acute bronchitis Status: Acute Category: Medical Code(s): J44.0 - Chronic obstructive pulmonary disease with (acute) lower respiratory infection; J20.9 - Acute bronchitis, unspecified (4) COPD with respiratory failure, acute Status: Acute Category: Medical Code(s): J44.9 - Chronic obstructive pulmonary disease, unspecified; J96.00 - Acute respiratory failure, unspecified whether with hypoxia or hypercapnia (5) Elevated erythrocyte sedimentation rate Status:
--- NOTE | 2020-12-12 08:55 | HMH.PULMCON ---
*Admission Date: 12/10/20 *Reason for consult:: Acute on chronic hypoxic respiratory failure *History of present illness: Ms. Ruiz is a 74-year-old female previous smoker greater than [id number] smoking history, last smoked around 2009 carries a diagnosis of COPD asthma, history of recurrent pulmonary infections recently treated with 14 days of vancomycin for MRSA pneumonia presented to the hospital with worsening cough productive phlegm and respiratory distress and pulmonary was called for further management. [facility] History Medical History: Reports:: Anxiety, Arrhythmia, Atrial Fibrillation, Cardiomyopathy, Congestive Heart Failure, Chronic Obstructive Pulmonary Disease (COPD), Congenital Heart Disease, Coronary Artery Disease, Deep Vein Thrombosis, Gastroesophageal Reflux Disease(GERD), Hyperlipidemia, Hypertension, MRSA, Myocardial Infarction, Palpitations, Valvular Heart Disease Denies:: Cancer, Diabetes Mellitus Type 1, Diabetes Mellitus Type 2, Internal Pacemaker *Have you ever received a pneumonia vaccine?: Yes *Have you received a flu vaccine this season?: Yes Other Medical History: Reports: Anemia, Arthritis, Cataracts, Fibromyalgia, Hypothyroidism, Sinus Problems, Thyroid Disease Laterality Cases: Left: Arthroscopy Hip, Right: Carpal Tunnel Release Other Surgeries: Yes: Appendectomy, Cardiac Catheterization, Cholecystectomy, Colonoscopy, Hysterectomy-Total, Tubal Ligation, Other. No: Pacemaker Amputation: No Fractures: Yes - *Social History Smoking Status: Former smoker Tobacco Type: cigarettes # Packs/Day (cigarettes): 0 #Yrs smoked (if former smoker): 40 Alcohol Intake: never Substance Use Type: denies use *Occupational Status:: disabled Housing: longterm Household Members: other *Travel in the last 8 weeks: None - Psychiatric History Pschychiatric History:: Reports:: Anxiety Family Hx:: Unable to obtain ROS - Cons Reports body ache(s), Reports fatigue, Denies chills, Denies fever(s) - Card Reports shortness of breath, Reports shortness of breath with activity - Resp Respiratory: Reports change in phlegm color, Reports chest congestion, Reports cough, Reports dyspnea on exertion, Reports excessive phlegm production, Denies coughing up blood, Reports cough with sputum production - GI Gastrointestingal: Reports: bloating, excessive passing of gas, nausea, reflux, vomiting - Psych Reports abnormal sleep pattern Meds Home Medications Medication Instructions Recorded Confirmed Type Pilocarpine HCl [Salagen] 7.5 mg PO TID 05/24/17 12/09/20 History Pantoprazole Sodium [Protonix 40mg 40 mg PO DAILY 10/28/18 12/09/20 History tablet] guaiFENesin [Mucinex] 1,200 mg PO BID 05/25/19 12/09/20 History Promethazine HCl 12.5 mg PO Q6HP PRN 07/13/19 12/09/20 History Roflumilast [Daliresp] 500 mcg PO DAILY 07/13/19 12/09/20 History Acetaminophen 500 mg PO BID 08/12/20 12/10/20 History Albuterol Sulfate [Albuterol 2 puffs IH Q6HP PRN 08/12/20 12/09/20 History Sulfate Hfa] Ferrous Sulfate [Ferrous Sulfate 325 mg PO DAILY 08/12/20 12/09/20 History 325mg Tablet] Fluticasone Propionate [Flonase 1 spr NS DAILY 08/12/20 12/09/20 History 50mcg nasal spray 16gm] Hydrocortisone 10 mg PO DAILY #30 tab 08/15/20 12/09/20 Rx Fluoxetine HCl 40 mg PO DAILY 08/19/20 12/09/20 History Hydrocortisone 5 mg PO HS 08/21/20 12/09/20 History Montelukast Sodium [Singulair] 10 mg PO HS 08/21/20 12/09/20 History Atorvastatin Calcium [Lipitor 40mg 40 mg PO HS 10/05/20 12/09/20 History Tablet*] Hydroxychloroquine Sulfate 200 mg PO BID 10/05/20 12/09/20 History [Plaquenil 200mg tablet] ondansetron HCL [Zofran 4mg Tab*] 4 mg PO Q4HP PRN 10/05/20 12/09/20 History polyethylene glycoL 3350 [Miralax 17 gm PO DAILY 10/05/20 12/09/20 History 17gm Packet] Budesonide/Formoterol Fumarate 2 puffs IH BID 10/12/20 12/09/20 History [Symbicort 160-4.5 Mcg Inhaler] Bumetanide 1 mg PO DAILY 10/12/20 12/09/20 History Lactulose
--- NOTE | 2020-12-12 09:49 | HMH.PHACONS ---
- Pharmacy Consult Date: 12/12/20 Time: 09:49 Referring provider: DIPTI Reason for Consult:: VANCOMYCIN THERAPY MANAGEMENT Allergies and ADEs:: Allergies Allergy/AdvReac Type Severity Reaction Status Date / Time hydrocodone [HYDROCODONE] Allergy Severe dizziness, Verified 11/18/20 11:23 n/v codeine [CODEINE] Allergy Intermediate dizziness. Verified 11/18/20 11:23 n/v Sulfa (Sulfonamide AdvReac Mild n/v Verified 11/18/20 11:23 Antibiotics) [SULFA (SULFONAMIDE ANTIBIOTICS)] Home Medications:: Home Medications Medication Instructions Recorded Confirmed Type Pilocarpine HCl [Salagen] 7.5 mg PO TID 05/24/17 12/09/20 History Pantoprazole Sodium [Protonix 40mg 40 mg PO DAILY 10/28/18 12/09/20 History tablet] guaiFENesin [Mucinex] 1,200 mg PO BID 05/25/19 12/09/20 History Promethazine HCl 12.5 mg PO Q6HP PRN 07/13/19 12/09/20 History Roflumilast [Daliresp] 500 mcg PO DAILY 07/13/19 12/09/20 History Acetaminophen 500 mg PO BID 08/12/20 12/10/20 History Albuterol Sulfate [Albuterol 2 puffs IH Q6HP PRN 08/12/20 12/09/20 History Sulfate Hfa] Ferrous Sulfate [Ferrous Sulfate 325 mg PO DAILY 08/12/20 12/09/20 History 325mg Tablet] Fluticasone Propionate [Flonase 1 spr NS DAILY 08/12/20 12/09/20 History 50mcg nasal spray 16gm] Hydrocortisone 10 mg PO DAILY #30 tab 08/15/20 12/09/20 Rx Fluoxetine HCl 40 mg PO DAILY 08/19/20 12/09/20 History Hydrocortisone 5 mg PO HS 08/21/20 12/09/20 History Montelukast Sodium [Singulair] 10 mg PO HS 08/21/20 12/09/20 History Atorvastatin Calcium [Lipitor 40mg 40 mg PO HS 10/05/20 12/09/20 History Tablet*] Hydroxychloroquine Sulfate 200 mg PO BID 10/05/20 12/09/20 History [Plaquenil 200mg tablet] ondansetron HCL [Zofran 4mg Tab*] 4 mg PO Q4HP PRN 10/05/20 12/09/20 History polyethylene glycoL 3350 [Miralax 17 gm PO DAILY 10/05/20 12/09/20 History 17gm Packet] Budesonide/Formoterol Fumarate 2 puffs IH BID 10/12/20 12/09/20 History [Symbicort 160-4.5 Mcg Inhaler] Bumetanide 1 mg PO DAILY 10/12/20 12/09/20 History Lactulose [Lactulose 20gm/30ml 20 gm PO DAILYP PRN 10/12/20 12/09/20 History Oral Soln] Loratadine [Allerclear] 10 mg PO DAILY 10/12/20 12/09/20 History Trazodone HCl 100 mg PO HS 10/12/20 12/09/20 History oxycodone-acetaminophen 5 mg-325 1 tab PO Q6HP PRN #120 tab 11/02/20 12/09/20 Rx mg tablet Acetaminophen 500 mg PO Q6HP PRN 12/09/20 12/10/20 History Calcium Carbonate [Tums] 300 mg PO Q6HP PRN 12/09/20 12/10/20 History Cholecalciferol (Vitamin D3) 1,000 unit PO DAILY 12/09/20 12/09/20 History [Vitamin D3 1,000 Unit Tab] Gabapentin 300 mg PO BID 12/09/20 12/09/20 History L.acidoph,Paracasei, B.lactis 1 each PO DAILY 12/09/20 12/09/20 History [Probiotic] Umeclidinium Mobile [Incruse 62.5 mcg IH HS 12/09/20 12/09/20 History Ellipta] Acetylcysteine [Acetylcysteine 20% 1 ml IN QIDRT 12/10/20 12/10/20 History 1mL syr (Resp Therapy)] Ipratropium/Albuterol Sulfate 3 ml IH QID 12/10/20 12/10/20 History [Duoneb 3mL neb] Trospium Chloride 20 mg PO DAILY 12/10/20 12/10/20 History guaiFENesin [Robitussin 200mg/10mL 200 mg PO Q8HP PRN 12/10/20 12/10/20 History Syrup Udc] Height: 1.65 m Weight: 83.013 kg Laboratory Results:: Laboratory Results - last 24 hr 12/11/20 09:06: Total Counted 100, Neutrophils % (Manual) 84 H, Lymphocytes % (Manual) 13, Monocytes % (Manual) 3, Platelet Estimate Normal, RBC Morphology Normal 12/11/20 21:00: Vancomycin Trough 13.1 H 12/12/20 01:03: Vancomycin Peak 39.8 H 12/12/20 06:16: WBC 12.6 H, RBC 2.92 L, Hgb 8.9 L, Hct 26.5 L, MCV 90.6, MCH 30.5, MCHC 33.6, RDW 12.7, Plt Count 186, MPV 6.2 L, Neut % (Auto) 92.8 H, Lymph % (Auto) 2.7 L, [place] % (Auto) 4.1, Eos % (Auto) 0.4, Baso % (Auto) 0.0 L, Neut # (Auto) 11.6 H, Lymph # (Auto) 0.3 L, [place] # (Auto) 0.5, Eos # (Auto) 0.1, Baso # (Auto) 0.0 12/12/20 06:16: Sodium 139, Potassium 4.6, Chloride 102, Carbon Dioxide 32 H, Ani
--- NOTE | 2020-12-12 09:51 | SW/DCPLANNER ---
Addendum entered by Yudelka Iniguez 12/13/20 10:07: [facility] has confirmed that they will allow this patient to borrow a portable O2 tank for transportation back to assisted with daughter. Addendum entered by Yudelka Iniguez 12/13/20 09:45: I have notified Jo Ann with [facility] that this patient will discharge back today. Jo Ann has stated that no further COVID testing is needed at this time. Original Note: This patient currently resides at [facility]. I spoke with Jo Ann from [facility] and she has stated that this patient is [facility] level of care. I will continue to follow up with Jo Ann until patient is medically stable for discharge.
--- NOTE | 2020-12-12 10:10 | CT_ITS ---
PROCEDURE: CT ANGIO CHEST PE PROTOCOL CLINCIAL INDICATION: Hypoxia Hypoxia COMPARISON: CT CHESTWO CT chest wo con from 12/18/2018 TECHNIQUE: IV Contrast: 70ML Isovue 370 Axial images obtained with sagittal and coronal reformats. All CT scans at the facility use one or more dose reduction, viz: automated exposure control, ma/kV adjustment per patient size (including targeted exams where dose is matched to indication, i.e. head), or iterative reconstruction technique. FINDINGS: HEART AND MEDIASTINAL STRUCTURES: No evidence of aortic aneurysm or dissection. There are coronary artery calcifications noted. No evidence of pulmonary embolus. MediPort catheter is present from the right subclavian approach. LUNGS AND PLEURAL SPACES: COPD with scattered areas of scarring. Chronic volume loss in the right middle lobe. Centrilobular emphysema. 2.3 cm subpleural nodular opacity in the left lower lobe posterior laterally. In addition there is a 17 mm subpleural nodule in the left lower lobe posteriorly. These have developed since the previous exam and could be neoplastic or inflammatory/infectious. There is a small left pleural effusion with left basilar volume loss with elevated left hemidiaphragm with small sub pulmonic effusion on the left. BONY STRUCTURES: Severe degenerative changes of the lower thoracic and upper lumbar spine with thoracic scoliosis convex right. There is an epidural catheter present at the T10 area. UPPER ABDOMEN: Left renal cyst noted anteriorly at 3 cm ADDITIONAL FINDINGS: No other significant abnormalities. IMPRESSION: 1. No evidence of acute pulmonary embolus. 2. There are 2 subpleural nodular opacities in the left lower lobe which could be inflammatory/infectious or neoplastic. Follow-up suggested following appropriate treatment for pneumonia to confirm resolution. Metastatic disease is also a consideration. 3. Left basilar volume loss with small sub pulmonic effusion and small posterior layering effusion. 4. COPD with centrilobular emphysema. Dictated by: Carlos Starks MD 12/12/2020 12:28 Carlos Starks MD in [place] 12/12/2020 12:28
[2020-12-12 10:11] LABS: Lymphocytes % 2 % (10-50); Monocytes % 2 % (2-9); Neutrophils % 96 % (42-76); Total Cells Counted 100
[2020-12-12 10:12] LABS: Hypochromasia 2+; Macrocytosis 1+; Platelet Estimate Normal
--- NOTE | 2020-12-12 19:45 | PC.NURSE ---
NO ACUTE CHANGES THIS SHIFT, SHE IS AOX4, SHE HAS BEEN UP TO CHAIR FOR MOST OF SHIFT, CONTINUES ON 3LNC FOR O2 SUPPORT, TOLERATING DIET WELL. VSS.
--- NOTE | 2020-12-13 03:55 | PC.NURSE ---
Patient is A&Ox4. VSS. still remains on 3L. Patient rested well throughout shift. no complaints of nausea or vomiting. no further concerns noted.
[2020-12-13 04:00] VITALS: BP 137/59; PULSE 71; RESP 19; TEMP 36.5; O2SAT 96
[2020-12-13 04:54] VITALS: BMI 31.6
[2020-12-13 06:27] VITALS: PULSE 67; O2SAT 98
[2020-12-13 07:45] VITALS: BP 116/50; PULSE 83; RESP 22; TEMP 36.9; O2SAT 98
[2020-12-13 07:58] LABS: Basophils % 0.1 % (0.1-2.0); Eosinophils % 0.2 % (0.1-12.0); Hematocrit 28.7 % (37.0-47.0); Hemoglobin 8.8 g/dL (12.2-16.2); Lymphocytes # 0.8 K/mm3 (0.7-4.5); Lymphocytes % 7.2 % (10-50); Mean Corpuscular HGB Conc 30.8 g/dL (31.8-35.4); Mean Corpuscular Hemoglobin 28.9 pg (27.0-31.2); Mean Corpuscular Volume 93.7 fl (81-99); Mean Platelet Volume 6.5 fl (7.4-10.4); Monocytes # 0.7 K/mm3 (0.1-1.0); Monocytes % 6.2 % (1.7-9.3); Neutrophils # 9.6 K/mm3 (1.8-7.8); Neutrophils % 86.4 % (37.0-80.0); Platelet Count 202 K/mm3 (142-424); Red Blood Count 3.06 M/mm3 (4.20-5.40); Red Cell Distribution Width 12.9 % (11.5-17.5); White Blood Count 11.1 K/mm3 (4.8-10.8)
[2020-12-13 08:00] VITALS: PULSE 83; RESP 22; O2SAT 98
[2020-12-13 08:02] LABS: Anion Gap 9.9 mEq/L (5-15); Blood Urea Nitrogen 21 mg/dl (7-17); Calcium 7.8 mg/dl (8.4-10.2); Carbon Dioxide 33 mmol/L (22.0-30.0); Chloride 101 mmol/L (98-107); Creatinine Clearance Estimated 68 mL/min (50-200); Estimated Glomerular Filt Rate 61 ml/min (>60); GFR (African American) 74 ML/MIN (>60); Glucose 104 mg/dl (74-100); Potassium 3.9 mmoL/L (3.5-5.1); Sodium 140 mmol/L (136-145)
[2020-12-13 08:06] LABS: MANUAL DIFFERENTIAL MANUAL DIFFERENTIAL (MANUAL DIFF)
[2020-12-13 08:32] LABS: Lymphocytes % 6 % (10-50); Monocytes % 2 % (2-9); Neutrophils % 92 % (42-76); Platelet Estimate Normal; Total Cells Counted 100
[2020-12-13 08:34] LABS: Hypochromasia 1+; Macrocytosis 2+
[2020-12-13 09:25] VITALS: PULSE 74; O2SAT 99
--- NOTE | 2020-12-13 09:30 | HMH.PULMPN ---
Internal Medicine - PN: Subj *Date: 12/13/20 *Time: 09:30 Interval history: No acute respiratory complaints overnight. Patient denies any new complaints. Admits improvement in her symptoms. Exam - Constitutional Constitutional:: Present: no acute distress, comfortable - HENMT Exam HENMT: Present: normocephalic, atraumatic - Eye Exam Eyes:: Present: normal appearance both eyes and related structures - Neck Exam Neck:: Present: normal visual inspection - Respiratory Exam Respiratory:: Present: able to speak in complete sentences, no respiratory distress, normal respiratory effort, crackles - Cardiovascular Exam Cardiac:: Present: S1, S2 - GI Exam GI:: Present: soft - Skin Exam Skin: Present: warm, no rash, dry - Neurological Exam Neurological: Present: alert, normal cognition - Extremities Exam Extremities: Present: no cyanosis, no clubbing, edema - Psychiatric Exam Psychiatric: Present: normal affect Assessment and Plan (1) Obesity (BMI 30.0-34.9) Status: Acute Category: Medical Code(s): E66.9 - Obesity, unspecified (2) Anemia Status: Acute Qualifiers: Anemia type: unspecified type Qualified Code(s): D64.9 - Anemia, unspecified Category: Medical Code(s): D64.9 - Anemia, unspecified (3) COPD (chronic obstructive pulmonary disease) with acute bronchitis Status: Acute Category: Medical Code(s): J44.0 - Chronic obstructive pulmonary disease with (acute) lower respiratory infection; J20.9 - Acute bronchitis, unspecified (4) COPD with respiratory failure, acute Status: Acute Category: Medical Code(s): J44.9 - Chronic obstructive pulmonary disease, unspecified; J96.00 - Acute respiratory failure, unspecified whether with hypoxia or hypercapnia (5) Elevated erythrocyte sedimentation rate Status: Acute Category: Medical Code(s): R70.0 - Elevated erythrocyte sedimentation rate (6) SIRS (systemic inflammatory response syndrome) Status: Acute Category: Medical Code(s): R65.10 - Systemic inflammatory response syndrome (SIRS) of non-infectious origin without acute organ dysfunction (7) History of MRSA infection of lungs Status: Acute Category: Medical Code(s): Z86.14 - Personal history of Methicillin resistant Staphylococcus aureus infection - Assessment and plan all Dx Assessment and Plan for all problems:: #COPD exacerbation: #Pseudomonas pneumonia: #Bronchiectasis with recurrent exacerbations: 75-year-old prior smoker carries a diagnosis COPD asthma overlap syndrome, recently treated for MRSA pneumonia present with worsening respiratory failure with worsening cough and productive phlegm. Sputum cultures on this admission so far growing gram-negative rods. Flu & COVID-19 PCR negative. Chest x-ray reviewed, showed new left-sided pleural effusion along with right lower lobe pulmonary infiltrate. Patient oxygen requirements at baseline at 2 to 3 L with adequate saturation however she appeared to be more distressed than at baseline this along with productive cough and change in sputum culture we will treat her for COPD exacerbation /Pneumonia. Interval update: Patient admit significant improvement in symptoms. CTA showed left lower lobe pleural-based pulmonary infiltrate appears more of airspace disease, possible underlying nodule cannot be completely ruled out. CT also evidence of bilateral lower lobe minimal bronchiectasis. Echocardiogram showed LV diastolic dysfunction. RVSP estimated at 41. Bilateral lower extremity edema noted. Plan: -Lasix 40 mg IV once -De-escalate cefepime to levofloxacin for a total of 14 days -Wean methylprednisolone to prednisone 40 mg daily for total of 5 days -Continue home oxygen therapy at 2 to 3 L to maintain O2 saturation goal of 88 to 92%. -Continue DuoNebs every 6 hours scheduled along with budesonide every 12 schedule -Continue Mucomyst every 12 scheduled -Continue chest vest for sputum clearance -we will arrange for outpatient
--- NOTE | 2020-12-13 09:46 | HMH.DCSUM ---
General - General Admission date:: 12/09/20 Discharge date: 12/13/20 HPI HPI: this pt [facility] with [facility] cough and sob with assoc fever which has increased over the last few days - pt has hx of resp dis with prev mrsa infection - pt was seen in the ed adn admitted with ivf and abx - Hospital Course Hospital Course: this pt was sent from [facility] with prod cough and sob with assoc fever which has increased over the last few days - pt has hx of resp dis with prev mrsa infection - pt was seen in the ed adn admitted with ivf and abx - 12/09/20 CXR: FINDINGS: Tubes, catheters and devices: Right IJ MediPort catheter overlies the SVC. Lungs: Hyperexpanded lungs. Pleural spaces: Blunting of the left costophrenic angle. Heart/Mediastinum: Unremarkable. No cardiomegaly. Bones/joints: Severe osteoarthritic changes left shoulder. Right distal clavicle resection. IMPRESSION: 1. Hyperexpanded lungs. 2. Blunting of the left costophrenic angle. Electronically signed by Jus Carlos MD 12/12/20 ECHO: Conclusion 1. Technically difficult study because of the patient factors and poor acoustic windows. 2. Mild biatrial enlargement, normal left ventricular size, mild concentric left ventricular hypertrophy, visually estimated ejection fraction 55% with no regional wall motion abnormality, diastolic parameters are inconclusive. 3. Mildly enlarged right ventricle with normal contractility. 4. Trace mitral and tricuspid regurgitation, calculated right ventricular systolic pressure is 41 mmHg. 5. No significant pericardial effusion noted. Electronically signed by : Javed Gibson 12/12/20 CHest CTA: FINDINGS: HEART AND MEDIASTINAL STRUCTURES: No evidence of aortic aneurysm or dissection. There are coronary artery calcifications noted. No evidence of pulmonary embolus. MediPort catheter is present from the right subclavian approach. LUNGS AND PLEURAL SPACES: COPD with scattered areas of scarring. Chronic volume loss in the right middle lobe. Centrilobular emphysema. 2.3 cm subpleural nodular opacity in the left lower lobe posterior laterally. In addition there is a 17 mm subpleural nodule in the left lower lobe posteriorly. These have developed since the previous exam and could be neoplastic or inflammatory/infectious. There is a small left pleural effusion with left basilar volume loss with elevated left hemidiaphragm with small sub pulmonic effusion on the left. BONY STRUCTURES: Severe degenerative changes of the lower thoracic and upper lumbar spine with thoracic scoliosis convex right. There is an epidural catheter present at the T10 area. UPPER ABDOMEN: Left renal cyst noted anteriorly at 3 cm ADDITIONAL FINDINGS: No other significant abnormalities. IMPRESSION: 1. No evidence of acute pulmonary embolus. 2. There are 2 subpleural nodular opacities in the left lower lobe which could be inflammatory/infectious or neoplastic. Follow-up suggested following appropriate treatment for pneumonia to confirm resolution. Metastatic disease is also a consideration. 3. Left basilar volume loss with small sub pulmonic effusion and small posterior layering effusion. 4. COPD with centrilobular emphysema. Dictated by: Carlos Starks MD Pulmonology has seen and recommends: Plan: -Lasix 40 mg IV once -De-escalate cefepime to levofloxacin for a total of 14 days -Wean methylprednisolone to prednisone 40 mg daily for total of 5 days -Continue home oxygen therapy at 2 to 3 L to maintain O2 saturation goal of 88 to 92%. -Continue DuoNebs every 6 hours scheduled along with budesonide every 12 schedule -Continue Mucomyst every 12 scheduled -Continue chest vest for sputum clearance -we will arrange for outpatient chest percussion therapy -Continue Incentive spirometry 75-year-old female patient sitting up in bed respirations easy/even, she denies any chest pain or shortness of breath duri
[2020-12-13 11:39] VITALS: BP 121/47; PULSE 87; RESP 16; TEMP 36.9; O2SAT 95
== END 2020-12-13 13:22 ==
LOC: ER 20:30 → 2ND 21:12
PROVIDERS: Nurse Practitioner Family; Admitting Provider Emergency Medicine; Emergency Provider Emergency Medicine; PCP Emergency Medicine; Visit Provider Emergency Medicine
DX: J47.1 Bronchiectasis with (acute) exacerbation (principal); Z20.822 Contact with and (suspected) exposure to COVID-19; J96.00 Acute respiratory failure, unspecified whether with hypoxia or hypercapnia; Z86.14 Personal history of Methicillin resistant Staphylococcus aureus infection; D64.9 Anemia, unspecified; E66.9 Obesity, unspecified; Z68.39 Body mass index [BMI] 39.0-39.9, adult; I42.9 Cardiomyopathy, unspecified; J15.1 Pneumonia due to Pseudomonas; I11.0 Hypertensive heart disease with heart failure; I50.9 Heart failure, unspecified; I25.10 Atherosclerotic heart disease of native coronary artery without angina pectoris; Z86.718 Personal history of other venous thrombosis and embolism; I25.2 Old myocardial infarction; E78.5 Hyperlipidemia, unspecified; Z87.891 Personal history of nicotine dependence; Z88.5 Allergy status to narcotic agent; Z88.2 Allergy status to sulfonamides; M79.7 Fibromyalgia; E03.9 Hypothyroidism, unspecified; K21.9 Gastro-esophageal reflux disease without esophagitis
CPT/HCPCS: 36415; 71045; 71275; 80048; 80053; 80202; 81001; 82803; 83605; 83735; 83880; 84145; 84484; 85007; 85025; 85651; 86140; 87040; 87070; 87077; 87186; 87205; 93005; 93306; 94640; 96365; 96366; 99285; G0378; J2405; J3370; Q9967; U0003

== ENCOUNTER 2020-12-30 08:20 | Outpatient (CLI) | payer MEDICARE, SELFPAY ==
[2020-12-30] VITALS (21 sets, daily range): BP systolic 90–122; BP diastolic 40–56; PULSE 82–95; RESP 18–20; TEMP 36.6–36.9; O2SAT 98–100; BMI 30.7
[2020-12-30 09:00] LABS: Hemoglobin 7.2 g/dL (12.2-16.2)
[2020-12-30 09:01] LABS: Hematocrit 21.4 % (37.0-47.0)
--- NOTE | 2020-12-30 14:13 | PC.NURSE ---
1005 Initiation of transfusion of 1st unit PRBC at this time. Lungs diminished bilateral bases. R port patent with good blood return/flushes easily. Resp unlabored. O2 at 3lpm per nc/pt home O2 dependent. Vital signs stable/consistent with patient baseline. Reviewed s/s blood transfusion reaction/intolerance with patient, who verbalizes understanding of all instruction. 1050 Patient tolerating blood well with no s/s transfusion reaction, no problems noted. Denies complaints. Resp unlabored/O2 in use. VSS. Portacath patent. 1130 Patient continues to tolerate blood well with no s/s transfusion reaction noted. VSS. Patient dozes at intervals. Denies c/o upon awakening. Up to BSC to void/clear yellow urine. 1210 1st unit PRBC complete at this time. Patient tolerated well with no problems noted. VSS. Lungs unchanged/consistent with baseline.
--- NOTE | 2020-12-30 14:22 | PC.NURSE ---
1238 Initiation of transfusion of 2nd unit PRBC at this time. VSS. Reviewed s/s transfusion reaction/intolerance with patient, who verbalizes understanding of all instruction. Portacath patent with good blood return/flushes easily. Patient eating lunch. Skin warm/dry to touch. 1308 Patient tolerating blood well with no s/s transfusion reaction noted. Resp easy/reg. O2 in use. VSS. Patient requests Zofran for mild nausea/no vomiting. Patient states she has not been able to eat due to frequent nausea and has been receiving Zofran at retirement for same. 1334 Patient med with Zofran 4mg po for c/o mild nausea. VSS. Port patent with no problems noted. No s/s transfusion reaction. Lungs consistent with baseline assessment. 1415 Patient sleeping when room entered. Awakens easily for assessment. States relief of nausea with Zofran. VSS. No s/s transfusion reaction noted. Resp easy/reg with O2 in use.
--- NOTE | 2020-12-30 15:10 | PC.NURSE ---
1500 Transfusion of 2nd unit PRBC complete. VSS. Resp unlabored/O2 in use. Port flushes easily, good blood return. Patient denies complaints. No s/s transfusion reaction noted. Will obtain one hour post H&H.
[2020-12-30 16:43] LABS: Hematocrit 29.4 % (37.0-47.0)
--- NOTE | 2020-12-30 17:03 | PC.NURSE ---
1645 detailed report to Elba Chino RN at [facility], reported post transfusion H&H 10.0/29.4
== END 2020-12-30 16:16 | disposition home or self-care (01) ==
LOC: INF 08:20
PROVIDERS: Visit Provider Nurse Practitioner Family
DX: D64.9 Anemia, unspecified (principal)
CPT/HCPCS: 36430; 85014; 85018; 86850; J1642; P9016

== ENCOUNTER 2020-12-31 11:57 | Inpatient (IN) | payer MEDICARE, SELFPAY ==
[2020-12-31] VITALS (11 sets, daily range): BP systolic 102–138; BP diastolic 52–70; PULSE 74–91; RESP 18–22; TEMP 36.6–36.8; O2SAT 94–97; BMI 30.7; BMI 32.3
--- NOTE | 2020-12-31 12:04 | ECG_ITS ---
APPROVED REPORT Exam: Resting ECG HR:94 bpm ECG Measurements Heart Rate 94 AXES NC 180 P -19 QRSd 132 QRS 44 QT 394 T 15 QTc 492 Conclusion Normal sinus rhythm Right bundle branch block Abnormal ECG Electronically signed by : Asad Butcher MD 01/01/2021 09:00:06
--- NOTE | 2020-12-31 12:19 | HMH.EDGENADL ---
ED Disposition Clinical Impression: Pleural effusion Disposition: Admitted as Observation Condition on Discharge: Fair - Critical Care Critical Care Time: No Attestation: On 12/31/20, the high probability of a clinically significant, sudden or life threatening deterioration of the following system(s) required my full and direct attention, intervention and personal management. The time I documented below is in addition to time spent performing reported procedures but includes the following listed in this critical care notation. Medical Decision Making - Julius Inquiry Pt receiving controlled substance: No Vital Signs: 12/31/20 13:06 12/31/20 13:15 12/31/20 13:53 Pulse Rate 90 90 91 H Respiratory Rate 22 19 18 Blood Pressure 111/63 Blood Pressure Mean 79 02 Sat by Pulse Oximetry 94 L 94 L 95 12/31/20 14:01 12/31/20 14:32 12/31/20 15:10 Pulse Rate 91 H 89 Respiratory Rate 20 19 Blood Pressure 109/63 L 131/52 L 102/63 L Blood Pressure Mean 69 79 70 02 Sat by Pulse Oximetry 96 94 L - Lab Data Lab Results 12/31/20 12:20: WBC 7.5, RBC 3.41 L, Hgb 10.1 L, Hct 30.4 L, MCV 89.1, MCH 29.6, MCHC 33.2, RDW 13.5, Plt Count 302, MPV 7.6, Neut % (Auto) 84.6 H, Lymph % (Auto) 7.8 L, [place] % (Auto) 5.6, Eos % (Auto) 1.7, Baso % (Auto) 0.3, Neut # (Auto) 6.3, Lymph # (Auto) 0.6 L, [place] # (Auto) 0.4, Eos # (Auto) 0.1, Baso # (Auto) 0.0 12/31/20 12:20: Sodium 137, Potassium 4.1, Chloride 98, Carbon Dioxide 31 H, Anion Gap 12.1, BUN 21 H, Creatinine 2.00 H, Estimated Creat Clear 33, Estimated GFR 24 L, Est GFR ( Amer) 30 L, Glucose 95, Calcium 8.2 L, Total Bilirubin 0.7, AST 17, ALT 7 L, Alkaline Phosphatase 94, Troponin I < 0.01, Total Protein 6.1 L, Albumin 3.1 L, Globulin 3.0, Albumin/Globulin Ratio 1.0 L 12/31/20 12:20: Lactate < 0.5 L 12/31/20 12:20: NT-Pro-B Natriuret Pep 1110 H 12/31/20 13:58: SARS-CoV-2 (PCR) Not detected, Influenza A Untype (PCR) Not detected, Influenza Type B (PCR) Not detected Result diagrams: 12/31/20 12:20 12/31/20 12:20 Orders (Tests/Meds): ED MEDICATIONS Generic Name Dose Route Start Last Admin Trade Name Freq PRN Reason Stop Dose Admin Vancomycin HCl 1,500 mg/ 250 mls @ 125 mls/hr 12/31/20 15:00 Sodium Chloride IV 01/14/21 14:59 Q36H DARLING Cefepime HCl 2 gm/ Sodium 100 mls @ 100 mls/hr 12/31/20 17:00 12/31/20 15:39 Chloride IV 01/14/21 16:59 100 mls/hr Q12H DARLING Administration Discontinued Medications Generic Name Dose Route Start Last Admin Trade Name Freq PRN Reason Stop Dose Admin Cefepime HCl 2 gm/ Sodium 100 mls @ 100 mls/hr 12/31/20 17:00 Chloride IV 01/14/21 16:59 Q12H [facility]ING Miscellaneous 1 each 12/31/20 15:00 12/31/20 14:52 Vancomycin Consult Request * 01/30/21 14:59 1 each CONSULT PHARMACY [facility] Administration Morphine Sulfate 2 mg 12/31/20 14:04 12/31/20 14:06 Morphine 2mg/Ml Syringe IV 12/31/20 14:05 2 mg ONCE ONE Administration Ondansetron HCl 4 mg 12/31/20 12:24 12/31/20 12:29 Ondansetron 4mg/2ml Vial IV 12/31/20 12:25 4 mg ONCE ONE Administration Ondansetron HCl 4 mg 12/31/20 14:03 12/31/20 14:06 Ondansetron 4mg/2ml Vial IV 12/31/20 14:04 4 mg ONCE ONE Administration ORDERS Category Date Time Status Troponin I Q3H Lab 12/31/20 15:30 Ordered Troponin I Q3H Lab 12/31/20 18:30 Ordered Blood Culture Stat Micro 12/31/20 13:58 Received - Radiology Data #1 Image(s): Chest Image Reviewed: Yes I reviewed the patient's radiology image, Yes I have reviewed radiologist's interpretation PROCEDURE INFORMATION: Exam: XR Chest Exam date and time: 12/31/2020 12:27 PM Age: 75 years old Clinical indication: Shortness of breath; Additional info: SOA TECHNIQUE: Imaging protocol: XR of the chest. Views: 1 view. COMPARISON: CR XR CHEST PORTABLE 12/09/2020 8:29 PM FINDINGS: Tubes, catheters and devices: MediPort terminates in the superior
--- NOTE | 2020-12-31 12:27 | XR_ITS ---
PROCEDURE INFORMATION: Exam: XR Chest Exam date and time: 12/31/2020 12:27 PM Age: 75 years old Clinical indication: Shortness of breath; Additional info: SOA TECHNIQUE: Imaging protocol: XR of the chest. Views: 1 view. COMPARISON: CR XR CHEST PORTABLE 12/09/2020 8:29 PM FINDINGS: Tubes, catheters and devices: MediPort terminates in the superior vena cava Lungs: Opacities in the left mid lung and both bases may represent atelectasis or pneumonia.. Pleural spaces: Moderate left pleural effusion.. Heart/Mediastinum: Cardiomegaly. Bones/joints: Bone on bone in the left glenohumeral joint consistent with significant degenerative changes IMPRESSION: 1. Moderate left pleural effusion.. 2. Opacities in the left mid lung and both bases may represent atelectasis or pneumonia.. 3. Cardiomegaly.
[2020-12-31 12:40] LABS: Basophils % 0.3 % (0.1-2.0); Eosinophils # 0.1 K/mm3 (0.0-0.4); Eosinophils % 1.7 % (0.1-12.0); Hematocrit 30.4 % (37.0-47.0); Hemoglobin 10.1 g/dL (12.2-16.2); Lymphocytes # 0.6 K/mm3 (0.7-4.5); Lymphocytes % 7.8 % (10-50); Mean Corpuscular HGB Conc 33.2 g/dL (31.8-35.4); Mean Corpuscular Hemoglobin 29.6 pg (27.0-31.2); Mean Corpuscular Volume 89.1 fl (81-99); Mean Platelet Volume 7.6 fl (7.4-10.4); Monocytes # 0.4 K/mm3 (0.1-1.0); Monocytes % 5.6 % (1.7-9.3); Neutrophils # 6.3 K/mm3 (1.8-7.8); Neutrophils % 84.6 % (37.0-80.0); Platelet Count 302 K/mm3 (142-424); Red Blood Count 3.41 M/mm3 (4.20-5.40); Red Cell Distribution Width 13.5 % (11.5-17.5); White Blood Count 7.5 K/mm3 (4.8-10.8)
[2020-12-31 12:41] LABS: Chloride 98 mmol/L (98-107); Potassium 4.1 mmoL/L (3.5-5.1); Sodium 137 mmol/L (136-145)
[2020-12-31 12:44] LABS: Alanine Aminotransferase 7 U/L (12-78); Albumin Level 3.1 g/dl (3.5-5.0); Alkaline Phosphatase 94 U/L (38-126); Anion Gap 12.1 mEq/L (5-15); Aspartate Amino Transferase 17 U/L (14-36); Bilirubin,Total 0.7 mg/dl (0.2-1.3); Blood Urea Nitrogen 21 mg/dl (7-17); Calcium 8.2 mg/dl (8.4-10.2); Carbon Dioxide 31 mmol/L (22.0-30.0); Creatinine Clearance Estimated 33 mL/min (50-200); Estimated Glomerular Filt Rate 24 ml/min (>60); GFR (African American) 30 ML/MIN (>60); Glucose 95 mg/dl (74-100); Total Protein,Serum 6.1 g/dl (6.3-8.2)
[2020-12-31 12:46] LABS: Lactic Acid < 0.5 mmol/L (0.7-2.1)
--- NOTE | 2020-12-31 12:48 | CT_ITS ---
PROCEDURE INFORMATION: Exam: CT Chest Without Contrast; Diagnostic Exam date and time: 12/31/2020 12:48 PM Age: 75 years old Clinical indication: Shortness of breath; Additional info: Left effusion and airspace dz TECHNIQUE: Imaging protocol: Diagnostic computed tomography of the chest without contrast. Radiation optimization: All CT scans at this facility use at least one of these dose optimization techniques: automated exposure control; mA and/or kV adjustment per patient size (includes targeted exams where dose is matched to clinical indication); or iterative reconstruction. COMPARISON: CT ANGIO CHEST PE PROTOCOL 12/12/2020 12:01 PM FINDINGS: Lungs: Consolidation in the left lower lobe may represent atelectasis or pneumonia.. Pleural spaces: Left pleural effusion has increased significantly in size compared to the prior study.. Heart: Unremarkable. No cardiomegaly. No pericardial effusion. Aorta: Unremarkable. No aortic aneurysm. Veins: MediPort terminates in the superior vena cava Lymph nodes: Soft tissue densities in the left hilum may represent adenopathy or mass.. 17 by 12 mm node anterior to the kareem Bones/joints: Severe degenerative changes in the left glenohumeral joint; Healing fractures in the manubrium. Series 602, image 52, 53.. Soft tissues: Unremarkable. Other findings: Neurotransmitter is seen in the thoracic canal IMPRESSION: 1. Left pleural effusion has increased significantly in size compared to the prior study.. 2. Consolidation in the left lower lobe may represent atelectasis or pneumonia.. 3. Soft tissue densities in the left hilum may represent adenopathy or mass.. 4. Healing fractures in the manubrium. Series 602, image 52, 53..
[2020-12-31 13:00] LABS: Troponin I < 0.01 ng/ml (0.00-0.034)
--- NOTE | 2020-12-31 13:24 | PC.NURSE ---
pt gone to ct
--- NOTE | 2020-12-31 13:39 | PC.NURSE ---
pt back from ct
[2020-12-31 14:06] LABS: Coronavirus 19, PCR Not Detected (NotDetected); Influenza A, PCR Not Detected (NotDetected); Influenza B, PCR Not Detected (NotDetected)
[2020-12-31 14:10] LABS: NT Pro Brain Natriuretic Pep. 1110 pg/mL (0-125)
--- NOTE | 2020-12-31 14:34 | PC.NURSE ---
Paging Dr Butcher, whom is monogram maker for Dr Hanson
--- NOTE | 2020-12-31 14:34 | PC.NURSE ---
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
--- NOTE | 2020-12-31 14:55 | HMH.PHACONS ---
- Pharmacy Consult Date: 12/31/20 Time: 14:55 Referring provider: DR. ONEILL Reason for Consult:: VANCOMYCIN DOSING Allergies and ADEs:: Allergies Allergy/AdvReac Type Severity Reaction Status Date / Time hydrocodone [HYDROCODONE] Allergy Severe dizziness, Verified 12/30/20 10:31 n/v codeine [CODEINE] Allergy Intermediate dizziness. Verified 12/30/20 10:31 n/v Sulfa (Sulfonamide AdvReac Mild n/v Verified 12/30/20 10:31 Antibiotics) [SULFA (SULFONAMIDE ANTIBIOTICS)] Home Medications:: Home Medications Medication Instructions Recorded Confirmed Type Pilocarpine HCl [Salagen] 7.5 mg PO TID 05/24/17 12/31/20 History Pantoprazole Sodium [Protonix 40mg 40 mg PO DAILY 10/28/18 12/31/20 History tablet] guaiFENesin [Mucinex] 1,200 mg PO BID 05/25/19 12/31/20 History Promethazine HCl 12.5 mg PO Q6HP PRN 07/13/19 12/31/20 History Roflumilast [Daliresp] 500 mcg PO DAILY 07/13/19 12/31/20 History Acetaminophen 500 mg PO BID 08/12/20 12/31/20 History Albuterol Sulfate [Albuterol 2 puffs IH Q6HP PRN 08/12/20 12/31/20 History Sulfate Hfa] Ferrous Sulfate [Ferrous Sulfate 325 mg PO DAILY 08/12/20 12/31/20 History 325mg Tablet] Fluticasone Propionate [Flonase 1 spr NS DAILY 08/12/20 12/31/20 History 50mcg nasal spray 16gm] Hydrocortisone 10 mg PO DAILY #30 tab 08/15/20 12/31/20 Rx Fluoxetine HCl 40 mg PO DAILY 08/19/20 12/31/20 History Hydrocortisone 5 mg PO HS 08/21/20 12/31/20 History Montelukast Sodium [Singulair] 10 mg PO HS 08/21/20 12/31/20 History Atorvastatin Calcium [Lipitor 40mg 40 mg PO HS 10/05/20 12/31/20 History Tablet*] ondansetron HCL [Zofran 4mg Tab*] 4 mg PO Q4HP PRN 10/05/20 12/31/20 History Budesonide/Formoterol Fumarate 2 puffs IH BID 10/12/20 12/31/20 History [Symbicort 160-4.5 Mcg Inhaler] Bumetanide 1 mg PO DAILY 10/12/20 12/31/20 History Lactulose [Lactulose 20gm/30ml 20 gm PO DAILYP PRN 10/12/20 12/31/20 History Oral Soln] Loratadine [Allerclear] 10 mg PO DAILY 10/12/20 12/31/20 History Trazodone HCl 100 mg PO HS 10/12/20 12/31/20 History oxycodone-acetaminophen 5 mg-325 1 tab PO Q6HP PRN #120 tab 11/02/20 12/31/20 Rx mg tablet Acetaminophen 500 mg PO Q6HP PRN 12/09/20 12/31/20 History Calcium Carbonate [Tums] 300 mg PO Q6HP PRN 12/09/20 12/31/20 History Gabapentin 300 mg PO BID 12/09/20 12/31/20 History L.acidoph,Paracasei, B.lactis 1 each PO DAILY 12/09/20 12/31/20 History [Probiotic] Acetylcysteine [Acetylcysteine 20% 1 ml IN QIDRT 12/10/20 12/31/20 History 1mL syr (Resp Therapy)] Ipratropium/Albuterol Sulfate 3 ml IH QID 12/10/20 12/31/20 History [Duoneb 3mL neb] Trospium Chloride 20 mg PO DAILY 12/10/20 12/31/20 History guaiFENesin [Robitussin 200mg/10mL 200 mg PO Q8HP PRN 12/10/20 12/31/20 History Syrup Udc] Tiotropium [place] [Spiriva 2 inh INHALATION DAILY 12/30/20 12/31/20 History Respimat] Cholecalciferol (Vitamin D3) 1,000 unit PO DAILY 12/31/20 12/31/20 History [Vitamin D3 1,000 Unit Tab] Ferrous Sulfate [Ferrous Sulfate 325 mg PO DAILY 12/31/20 12/31/20 History 325mg Tab] Hydroxychloroquine Sulfate 200 mg PO DAILY 12/31/20 12/31/20 History [Plaquenil 200mg tablet] Sennosides [Senna] 8.6 mg PO DAILY 12/31/20 12/31/20 History Height: 1.65 m Weight: 83.915 kg Laboratory Results:: Laboratory Results - last 24 hr 12/31/20 12:20: WBC 7.5, RBC 3.41 L, Hgb 10.1 L, Hct 30.4 L, MCV 89.1, MCH 29.6, MCHC 33.2, RDW 13.5, Plt Count 302, MPV 7.6, Neut % (Auto) 84.6 H, Lymph % (Auto) 7.8 L, [place] % (Auto) 5.6, Eos % (Auto) 1.7, Baso % (Auto) 0.3, Neut # (Auto) 6.3, Lymph # (Auto) 0.6 L, [place] # (Auto) 0.4, Eos # (Auto) 0.1, Baso # (Auto) 0.0 12/31/20 12:20: Sodium 137, Potassium 4.1, Chloride 98, Carbon Dioxide 31 H, Anion Gap 12.1, BUN 21 H, Creatinine 2.00 H, Estimated Creat Clear 33, Estimated GFR 24 L, Est GFR ( Amer) 30 L, Glucose 95, Calcium 8.2 L, Total Bilirubin 0.7, AST 17, ALT 7 L, Alkaline [place]
--- NOTE | 2020-12-31 16:19 | PC.NURSE ---
REPORT CALLED TO FLOOR
--- NOTE | 2020-12-31 16:56 | PC.NURSE ---
Paged Dr Calderon for consult on this pt.
--- NOTE | 2020-12-31 18:34 | XR_ITS ---
PROCEDURE INFORMATION: Exam: XR Chest Exam date and time: 12/31/2020 6:34 PM Age: 75 years old Clinical indication: Device placement; Other: S/P thora; Additional info: Left effusion S/P thoracentesis TECHNIQUE: Imaging protocol: XR of the chest. Views: 1 view. COMPARISON: CT CHEST WO CON 12/31/2020 1:24 PM and chest radiograph dated 12/31/2020 FINDINGS: Tubes, catheters and devices: Right subclavian central venous catheter tip in the upper superior vena cava. Lungs: See Pleural spaces finding. Pleural spaces: Moderate-sized left pleural effusion with associated left basilar atelectasis, similar to comparison studies. Minimal blunting of the right costophrenic angle, likely small right pleural effusion. Heart/Mediastinum: Normal. Vasculature: Atherosclerotic disease of the thoracic aorta. Bones/joints: Multilevel thoracic spine degenerative disc space narrowing osteophyte formation, with dextroscoliosis of the thoracic spine. Moderate degenerative changes of the visualized glenohumeral joints. IMPRESSION: Moderate-sized left pleural effusion with associated left basilar atelectasis, similar to comparison studies.
--- NOTE | 2020-12-31 18:35 | HMH.GSCON ---
*Admission Date: 12/31/20 *Reason for consult:: Left effusion *History of present illness: This is a 75-year-old female seen in consultation for possible left thoracentesis. She was evaluated in the emergency department with increasing shortness of air. Chest x-ray followed by chest CT confirmed a left effusion. She states that she has recently been treated for pneumonia. Review of Systems - *Respiratory Reports shortness of breath, Reports shortness of breath with activity [facility] History Medical History: Reports:: Anxiety, Arrhythmia, Atrial Fibrillation, Cardiomyopathy, Congestive Heart Failure, Chronic Obstructive Pulmonary Disease (COPD), Congenital Heart Disease, Coronary Artery Disease, Deep Vein Thrombosis, Gastroesophageal Reflux Disease(GERD), Hyperlipidemia, Hypertension, MRSA, Myocardial Infarction, Palpitations, Valvular Heart Disease Denies:: Cancer, Diabetes Mellitus Type 1, Diabetes Mellitus Type 2, Internal Pacemaker *Have you ever received a pneumonia vaccine?: Yes *Have you received a flu vaccine this season?: Yes Other Medical History: Reports: Anemia, Arthritis, Cataracts, Fibromyalgia, Hypothyroidism, Sinus Problems, Thyroid Disease Laterality Cases: Left: Arthroscopy Hip, Right: Carpal Tunnel Release Other Surgeries: Yes: Appendectomy, Cardiac Catheterization, Cholecystectomy, Colonoscopy, Hysterectomy-Total, Tubal Ligation, Other. No: Pacemaker Amputation: No Fractures: Yes - *Social History Smoking Status: Former smoker Tobacco Type: cigarettes # Packs/Day (cigarettes): 0 #Yrs smoked (if former smoker): 40 Alcohol Intake: never Substance Use Type: denies use *Occupational Status:: disabled Housing: correction Household Members: other *Travel in the last 8 weeks: None - Psychiatric History Pschychiatric History:: Reports:: Anxiety Family Hx:: Unable to obtain Meds Home Medications Medication Instructions Recorded Confirmed Type Pilocarpine HCl [Salagen] 7.5 mg PO TID 05/24/17 12/31/20 History Pantoprazole Sodium [Protonix 40mg 40 mg PO DAILY 10/28/18 12/31/20 History tablet] guaiFENesin [Mucinex] 1,200 mg PO BID 05/25/19 12/31/20 History Promethazine HCl 12.5 mg PO Q6HP PRN 07/13/19 12/31/20 History Roflumilast [Daliresp] 500 mcg PO DAILY 07/13/19 12/31/20 History Acetaminophen 500 mg PO BID 08/12/20 12/31/20 History Albuterol Sulfate [Albuterol 2 puffs IH Q6HP PRN 08/12/20 12/31/20 History Sulfate Hfa] Ferrous Sulfate [Ferrous Sulfate 325 mg PO DAILY 08/12/20 12/31/20 History 325mg Tablet] Fluticasone Propionate [Flonase 1 spr NS DAILY 08/12/20 12/31/20 History 50mcg nasal spray 16gm] Hydrocortisone 10 mg PO DAILY #30 tab 08/15/20 12/31/20 Rx Fluoxetine HCl 40 mg PO DAILY 08/19/20 12/31/20 History Hydrocortisone 5 mg PO HS 08/21/20 12/31/20 History Montelukast Sodium [Singulair] 10 mg PO HS 08/21/20 12/31/20 History Atorvastatin Calcium [Lipitor 40mg 40 mg PO HS 10/05/20 12/31/20 History Tablet*] ondansetron HCL [Zofran 4mg Tab*] 4 mg PO Q4HP PRN 10/05/20 12/31/20 History Budesonide/Formoterol Fumarate 2 puffs IH BID 10/12/20 12/31/20 History [Symbicort 160-4.5 Mcg Inhaler] Bumetanide 1 mg PO DAILY 10/12/20 12/31/20 History Lactulose [Lactulose 20gm/30ml 20 gm PO DAILYP PRN 10/12/20 12/31/20 History Oral Soln] Loratadine [Allerclear] 10 mg PO DAILY 10/12/20 12/31/20 History Trazodone HCl 100 mg PO HS 10/12/20 12/31/20 History oxycodone-acetaminophen 5 mg-325 1 tab PO Q6HP PRN #120 tab 11/02/20 12/31/20 Rx mg tablet Acetaminophen 500 mg PO Q6HP PRN 12/09/20 12/31/20 History Calcium Carbonate [Tums] 300 mg PO Q6HP PRN 12/09/20 12/31/20 History Gabapentin 300 mg PO BID 12/09/20 12/31/20 History L.acidoph,Paracasei, B.lactis 1 each PO DAILY 12/09/20 12/31/20 History [Probiotic] Acetylcysteine [Acetylcysteine 20% 1 ml IN QIDRT 12/10/20 12/31/20 History 1mL syr (Resp Therapy)] Ipratropium/Albuterol Sulfate 3 ml IH QID 12/10/20 12/31/20 History [Duoneb 3mL neb*
--- NOTE | 2020-12-31 18:39 | HMH.OPNOTE ---
Date of procedure: 12/31/20 Pre-op Diagnosis:: Left pleural effusion Post-op Diagnosis:: Same Procedure performed:: Left thoracentesis Surgeon:: Keagan Calderon MD Anesthesia: local Estimated blood loss (mL): 1 Operative findings:: 300 mL of serosanguineous fluid removed Operative note:: After informed consent was obtained the patient was placed in a seated position. Auscultation was utilized to help jayashree the area of most significant diminished airflow. Her back was prepped and draped in a sterile fashion. After infiltration of local anesthetic a small stab incision was made. The thoracentesis catheter was then placed in position with initial drainage of straw-colored fluid that became somewhat serosanguineous. Slight withdrawal of the pigtail catheter was utilized to maintain flow. After a total of 300 mL were removed, flow through the catheter ceased. As negative pressure was maintained the catheter was carefully removed and a Tegaderm was placed in position. A portion of fluid was obtained for thoracentesis panel. Chest x-ray is pending. Condition: stable Disposition: no change Specimens:: Fluid for thoracentesis panel Complications:: No immediate. Chest x-ray pending.
[2020-12-31 19:31] LABS: Lactate Dehydrogenase 197 U/L (313-618)
[2020-12-31 19:42] LABS: Appearance,Body Fld. Cloudy; RBC,Body Fluid 36 cells/uL (< 10 X 10^3); Source, Body Fld. Thoracentesis Fluid; TNC,Body Fluid 2189 cells/uL (< 1000); Volume,Body Fld. 16 mL
[2020-12-31 19:52] LABS: Mononuclear WBCs,Body Fluid 26 %; Polynuclear WBC,Body Fluid 74 %
[2021-01-01] VITALS (9 sets, daily range): BP systolic 112–128; BP diastolic 46–61; PULSE 80–98; RESP 18–22; TEMP 36.6–37.1; O2SAT 90–96; BMI 32.4
--- NOTE | 2021-01-01 06:00 | XR_ITS ---
PROCEDURE INFORMATION: Exam: XR Chest Exam date and time: 01/01/2021 6:00 AM Age: 75 years old Clinical indication: Patient HX: Pleural effusion PT had thoracentesis yesterday; Additional info: Left effusion TECHNIQUE: Imaging protocol: XR of the chest. Views: 1 view. COMPARISON: CR XR CHEST PORTABLE 12/31/2020 6:52 PM FINDINGS: Tubes, catheters and devices: A central line has been placed. The tip overlies the superior vena cava. Lungs: See Pleural spaces finding. Pleural spaces: There is no evidence of pneumothorax or other complication. Moderate-sized left pleural effusion with associated left basilar atelectasis, unchanged. Heart/Mediastinum: Unremarkable. No cardiomegaly. Bones/joints: There is scoliosis. There are degenerative changes of the spine and shoulders. IMPRESSION: Moderate-sized left pleural effusion with associated left basilar atelectasis, unchanged.
--- NOTE | 2021-01-01 06:00 | PC.NURSE ---
A&OX4. PT TOLERATING 2LNC WELL T/O SHIFT. PT HAS HAD NO C/O PAIN OR SOA. PT HAS A GOOD APPETITE. SLEEPING MAJORITY OF SHIFT. VSS WILL CONTINUE TO MONITOR.
--- NOTE | 2021-01-01 08:56 | HMH.HP ---
*Admission Date: 12/31/20 *Chief complaint: sob *History of present illness: this pt with sob and was seen in the [facility] by ambulance from [facility]. Patient says that for the past 2 to 3 days she has a pain in the left side of her chest. She has nausea. She says that she has shortness of breath, cannot get a deep breath. Denies fever. She does have a cough with small amounts of white to yellow sputum. Nausea and dry heaves, but no vomiting. States that she had this pain 2 to 3 weeks ago when she believes she was told she had pneumonia.pt was also seen by dr hall is a 75-year-old female seen in consultation for possible left thoracentesis. She was evaluated in the emergency department with increasing shortness of air. Chest x-ray followed by chest CT confirmed a left effusion. She states that she has recently been treated for [id number] mL of serosanguineous fluid After informed consent was obtained the patient was placed in a seated position. Auscultation was utilized to help jayashree the area of most significant diminished airflow. Her back was prepped and draped in a sterile fashion. After infiltration of local anesthetic a small stab incision was made. The thoracentesis catheter was then placed in position with initial drainage of straw-colored fluid that became somewhat serosanguineous. Slight withdrawal of the pigtail catheter was utilized to maintain flow. After a total of 300 mL were removed, flow through the catheter ceased. As negative pressure was maintained the catheter was carefully removed and a Tegaderm was placed in position. A portion of fluid was obtained for thoracentesis panel. Chest x-ray is pending. pt was admitted for treatment [facility] History I have reviewed the patient's past medical history: Yes Medical History: Reports:: Anxiety, Arrhythmia, Atrial Fibrillation, Cardiomyopathy, Congestive Heart Failure, Chronic Obstructive Pulmonary Disease (COPD), Congenital Heart Disease, Coronary Artery Disease, Deep Vein Thrombosis, Gastroesophageal Reflux Disease(GERD), Hyperlipidemia, Hypertension, MRSA, Myocardial Infarction, Palpitations, Valvular Heart Disease Denies:: Cancer, Diabetes Mellitus Type 1, Diabetes Mellitus Type 2, Internal Pacemaker *Have you ever received a pneumonia vaccine?: Yes *Have you received a flu vaccine this season?: Yes Other Medical History: Reports: Anemia, Arthritis, Cataracts, Fibromyalgia, Hypothyroidism, Sinus Problems, Thyroid Disease Laterality Cases: Left: Arthroscopy Hip, Right: Carpal Tunnel Release Other Surgeries: Yes: Appendectomy, Cardiac Catheterization, Cholecystectomy, Colonoscopy, Hysterectomy-Total, Tubal Ligation, Other. No: Pacemaker Amputation: No Fractures: Yes - *Social History Smoking Status: Former smoker Tobacco Type: cigarettes # Packs/Day (cigarettes): 0 #Yrs smoked (if former smoker): 40 Alcohol Intake: never Substance Use Type: denies use *Occupational Status:: disabled Housing: [employer] Household Members: other *Travel in the last 8 weeks: None - Psychiatric History Pschychiatric History:: Reports:: Anxiety Family Hx:: Unable to obtain Review of Systems - Review of Systems Review of systems:: pertinent systems reviewed and negative unless documented below - Constitutional Reports malaise, Denies headache(s) - Eyes Denies change in vision - ENT Denies sore throat - *Cardiovascular Denies chest pain at rest - *Respiratory Reports cough, Reports shortness of breath - *Gastrointestinal Denies abdominal pain - *Genitourinary Denies blood in urine - *Musculoskeletal Denies joint pain - Integumentary/Breasts Denies rash - *Neurologic Denies localized weakness, Denies seizure-like activity Meds Home Medications Medication Instructions Recorded Confirmed Type Pilocarpine HCl [Salagen] 7.5 mg PO TID 05/24/17 12/31/20 History Pantoprazole Sodium [Protonix 40mg 40 mg PO DAILY 10/28/18 12/31/20 History
--- NOTE | 2021-01-01 08:59 | HMH.GSPN ---
Subjective Patient reports: nausea, shortness of breath (She states he is slightly less short of air ) Progress Note: A&P (1) Pleural effusion Status: Acute Assessment and plan: Only 300 mL of somewhat serosanguineous fluid removed at initial thoracentesis. History and initial thoracentesis panel consistent with parapneumonic effusion. Follow-up cultures and cytology from thoracentesis fluid Consider repeat thoracentesis with ultrasound guidance (if needed) to increase likelihood of greater volume evacuation Exam Vital signs and Labs for Last 24 Hours: Temp Pulse Resp BP Pulse Ox 98.6 F 98 H 22 120/48 L 90 L 01/01/21 08:00 01/01/21 08:00 01/01/21 08:00 01/01/21 08:00 01/01/21 08:00 Laboratory Results - last 24 hr 12/31/20 12:20: WBC 7.5, RBC 3.41 L, Hgb 10.1 L, Hct 30.4 L, MCV 89.1, MCH 29.6, MCHC 33.2, RDW 13.5, Plt Count 302, MPV 7.6, Neut % (Auto) 84.6 H, Lymph % (Auto) 7.8 L, Bartholomew % (Auto) 5.6, Eos % (Auto) 1.7, Baso % (Auto) 0.3, Neut # (Auto) 6.3, Lymph # (Auto) 0.6 L, Bartholomew # (Auto) 0.4, Eos # (Auto) 0.1, Baso # (Auto) 0.0 12/31/20 12:20: Sodium 137, Potassium 4.1, Chloride 98, Carbon Dioxide 31 H, Anion Gap 12.1, BUN 21 H, Creatinine 2.00 H, Estimated Creat Clear 33, Estimated GFR 24 L, Est GFR ( Amer) 30 L, Glucose 95, Calcium 8.2 L, Total Bilirubin 0.7, AST 17, ALT 7 L, Alkaline Phosphatase 94, Troponin I < 0.01, Total Protein 6.1 L, Albumin 3.1 L, Globulin 3.0, Albumin/Globulin Ratio 1.0 L 12/31/20 12:20: Lactate < 0.5 L 12/31/20 12:20: NT-Pro-B Natriuret Pep 1110 H 12/31/20 12:20: Lactate Dehydrogenase 197 L 12/31/20 13:58: SARS-CoV-2 (PCR) Not detected, Influenza A Untype (PCR) Not detected, Influenza Type B (PCR) Not detected 12/31/20 18:30: Fluid Source Thoracentesis fluid, Fluid Volume 16, Fluid Appearance Cloudy, Fluid RBC (Auto) 36, Fld Tot Nucleated Cell 2189, Fld Polynuclear WBCs % 74, Fld Mononuclear WBCs % 26 I & O for Last 24 hours: Intake & Output 12/29/20 12/30/20 12/31/20 01/01/21 11:59 11:59 11:59 11:59 Intake Total 360 / 360 Output Total 0 / 0 Balance 360 / 360 Weight 185 lb 194 lb 8.998 oz Microbiology Reports for the Last 24 Hours: Microbiology 12/31/20 18:30 Thoracic Fluid Gram Stain - Final - Constitutional no acute distress - *Routine Respiratory Exam Absent: respiratory distress
--- NOTE | 2021-01-01 10:53 | HMH.PHAVTE ---
[facility] Pharmacy VTE Monitoring - Patient Demographics Admission date: 01/01/21 Report Date: 01/01/21 Time: 10:53 Allergies/Adverse Reactions: Patient Allergies hydrocodone [HYDROCODONE] Allergy (Severe, Verified 12/30/20 10:31) dizziness, n/v codeine [CODEINE] Allergy (Intermediate, Verified 12/30/20 10:31) dizziness. n/v Sulfa (Sulfonamide Antibiotics) [SULFA (SULFONAMIDE ANTIBIOTICS)] Adverse Reaction (Mild, Verified 12/30/20 10:31) n/v Height: 1.65 m Weight: 88.252 kg Patient Problems: Current Active Problems Pleural effusion (Acute) - VTE Risk Labs: VTE Related Lab Results Hgb 10.1 g/dL (12.2-16.2) L 12/31/20 12:20 Hct 30.4 % (37.0-47.0) L 12/31/20 12:20 Plt Count 302 K/mm3 (142-424) 12/31/20 12:20 BUN 21 mg/dl (7-17) H 12/31/20 12:20 Creatinine 2.00 mg/dl (0.52-1.04) H 12/31/20 12:20 Estimated Creat Clear 33 mL/min (50-200) 12/31/20 12:20 Was VTE Risk Assessment Performed: Yes VTE Score: 14 VTE Risk Level: Moderate Risk - Prophylaxis Types of VTE Prophylaxis: TEDS Knee High Location of Applied Device: Bilateral Lower Extremeties (ROSY HOSE ORDERED)
--- NOTE | 2021-01-01 19:26 | PC.NURSE ---
pt is AxOx4, has remained on 3L NC, no complaints of pain or SOA, has complained of nausea and was treated per MAR
[2021-01-02] VITALS (8 sets, daily range): BP systolic 120–142; BP diastolic 50–71; PULSE 71–96; RESP 18–20; TEMP 36.3–36.6; O2SAT 93–99; BMI 32.2; BMI 32.3; BMI 31.6
--- NOTE | 2021-01-02 04:09 | PC.NURSE ---
A&OX4. TOLERATING 4LNC WHILE AWAKE AND TRILOGY WHILE SLEEPING. PT HAS C/O SLIGHT BACK PAIN, AND SOME NAUSEA. TX PER MAR. ON REASSESSMENT PT IS RESTING COMFORTABLY. PT TOLERATING MULTIPLE SNACKS THIS SHIFT. SLEEPING INTERMITTENTLY. VSS WILL CONTINUE TO MONITOR.
--- NOTE | 2021-01-02 07:31 | HMH.GSPN ---
Subjective Patient reports: no new complaints Progress Note: A&P (1) Pleural effusion Status: Acute Assessment and plan: Ongoing management of likely parapneumonic effusion as per primary service. Preliminary cultures show no growth. Follow-up final cultures Follow-up cytology If repeat thoracentesis required, ultrasound guidance in the radiology department preferable to maximize volume of fluid removed (2) ANDRIA (acute kidney injury) Status: Acute (3) COPD (chronic obstructive pulmonary disease) Status: Acute (4) History of MRSA infection of lungs Status: Acute (5) Obesity (BMI 30.0-34.9) Status: Acute Exam Vital signs and Labs for Last 24 Hours: Temp Pulse Resp BP Pulse Ox 98 F 76 18 120/71 93 L 01/02/21 04:00 01/02/21 05:38 01/02/21 04:00 01/02/21 04:00 01/02/21 05:38 I & O for Last 24 hours: Intake & Output 12/30/20 12/31/20 01/01/21 01/02/21 11:59 11:59 11:59 11:59 Intake Total 360 / 360 600 / 600 Output Total 0 / 0 Balance 360 / 360 600 / 600 Weight 185 lb 194 lb 8.998 oz 193 lb 8 oz Microbiology Reports for the Last 24 Hours: Microbiology 12/31/20 18:30 Thoracic Fluid Gram Stain - Final 12/31/20 18:30 Thoracic Fluid Body Fluid Culture - Preliminary NO GROWTH AFTER 24 HOURS - Constitutional no acute distress - *Routine Respiratory Exam Absent: respiratory distress - *Routine Cardiovascular Exam Absent: tachycardia
--- NOTE | 2021-01-02 09:34 | SW/DCPLANNER ---
Addendum entered by Yudelka Iniguez 01/04/21 11:16: I have updated Jo Ann w/ [facility] regarding this patient. Original Note: This patient currently resides at [facility]. I spoke with Jo Ann at [facility] and she has stated that patient is I[facility] level of care. I will follow up with Jo Ann once patient is medically stable for discharge.
--- NOTE | 2021-01-02 09:48 | HMH.ACPN2 ---
Internal Medicine - PN: Subj *Date: 01/02/21 *Time: 08:15 Interval history: pt states she feels weak denies pain or soa Exam Vital signs and Labs for Last 24 Hours: Temp Pulse Resp BP Pulse Ox 97.8 F 71 20 142/50 H 94 L 01/02/21 08:00 01/02/21 08:00 01/02/21 08:00 01/02/21 08:00 01/02/21 08:00 I & O for Last 24 hours: Intake & Output 12/30/20 12/31/20 01/01/21 01/02/21 11:59 11:59 11:59 11:59 Intake Total 360 / 360 960 / 960 Output Total 0 / 0 Balance 360 / 360 960 / 960 Weight 185 lb 194 lb 8.998 oz 193 lb 8 oz Microbiology Reports for the Last 24 Hours: Microbiology 12/31/20 18:30 Thoracic Fluid Gram Stain - Final 12/31/20 18:30 Thoracic Fluid Body Fluid Culture - Preliminary NO GROWTH AFTER 24 HOURS - Constitutional no acute distress, chronically ill appearing - *Routine HEENT Exam Head: Present: normocephalic Eye: Present: PERRL ENT: Present: mucous membranes moist - *Routine Neck Exam Present: supple. Absent: lymphadenopathy - *Routine Respiratory Exam Present: decreased breath sounds, crackles - *Routine Cardiovascular Exam Present: RRR - *Routine Abdominal Exam Present: soft, normoactive bowel sounds. Absent: tenderness - *Routine Extremities Exam Present: normal capillary refill. Absent: cyanosis, clubbing, edema - *Routine Skin Exam Present: warm. Absent: rash - *Routine Neurological Exam Present: alert, oriented X3 - Routine Psychiatric Exam Present: normal affect Assessment and Plan (1) Pleural effusion Status: Acute Category: Medical Code(s): J90 - Pleural effusion, not elsewhere classified (2) ANDRIA (acute kidney injury) Status: Acute Category: Medical Code(s): N17.9 - Acute kidney failure, unspecified (3) COPD (chronic obstructive pulmonary disease) Status: Acute Qualifiers: COPD type: unspecified COPD Qualified Code(s): J44.9 - Chronic obstructive pulmonary disease, unspecified Category: Medical Code(s): J44.9 - Chronic obstructive pulmonary disease, unspecified (4) History of MRSA infection of lungs Status: Acute Category: Medical Code(s): Z86.14 - Personal history of Methicillin resistant Staphylococcus aureus infection (5) Obesity (BMI 30.0-34.9) Status: Acute Category: Medical Code(s): E66.9 - Obesity, unspecified - Assessment and plan all Dx Assessment and Plan for all problems:: rounded with dr dillon all orders per dr dillon consult pulm wait cx
--- NOTE | 2021-01-02 11:21 | HMH.PULMCON ---
*Admission Date: 01/01/21 *Reason for consult:: Acute on chronic hypoxic respiratory failure *History of present illness: Ms. Ruiz is a 74-year-old female greater than [id number] smoking history, last moved in 2009 cancer diagnosed COPD asthma, bronchiectasis, history of MRSA and Pseudomonas pneumonia recently discharged on 14 days of levofloxacin presented hospital again with worsening left-sided chest pain and worsening shortness of breath. [facility] History Medical History: Reports:: Anxiety, Arrhythmia, Atrial Fibrillation, Cardiomyopathy, Congestive Heart Failure, Chronic Obstructive Pulmonary Disease (COPD), Congenital Heart Disease, Coronary Artery Disease, Deep Vein Thrombosis, Gastroesophageal Reflux Disease(GERD), Hyperlipidemia, Hypertension, MRSA, Myocardial Infarction, Palpitations, Valvular Heart Disease Denies:: Cancer, Diabetes Mellitus Type 1, Diabetes Mellitus Type 2, Internal Pacemaker *Have you ever received a pneumonia vaccine?: Yes *Have you received a flu vaccine this season?: Yes Other Medical History: Reports: Anemia, Arthritis, Cataracts, Fibromyalgia, Hypothyroidism, Sinus Problems, Thyroid Disease Laterality Cases: Left: Arthroscopy Hip, Right: Carpal Tunnel Release Other Surgeries: Yes: Appendectomy, Cardiac Catheterization, Cholecystectomy, Colonoscopy, Hysterectomy-Total, Tubal Ligation, Other. No: Pacemaker Amputation: No Fractures: Yes - *Social History Smoking Status: Former smoker Tobacco Type: cigarettes # Packs/Day (cigarettes): 0 #Yrs smoked (if former smoker): 40 Alcohol Intake: never Substance Use Type: denies use *Occupational Status:: disabled Housing: [employer] Household Members: other *Travel in the last 8 weeks: None - Psychiatric History Pschychiatric History:: Reports:: Anxiety Family Hx:: Unable to obtain ROS - Cons Reports anorexia, Reports body ache(s), Reports chills - Card Reports shortness of breath, Reports shortness of breath with activity, Reports leg swelling - Resp Respiratory: Reports chest congestion, Reports cough, Denies excessive phlegm production, Reports pain with breathing - GI Gastrointestingal: Denies: abdominal pain - Psych Reports abnormal sleep pattern Meds Home Medications Medication Instructions Recorded Confirmed Type Pilocarpine HCl [Salagen] 7.5 mg PO TID 05/24/17 12/31/20 History Pantoprazole Sodium [Protonix 40mg 40 mg PO DAILY 10/28/18 12/31/20 History tablet] guaiFENesin [Mucinex] 1,200 mg PO BID 05/25/19 12/31/20 History Promethazine HCl 12.5 mg PO Q6HP PRN 07/13/19 12/31/20 History Roflumilast [Daliresp] 500 mcg PO DAILY 07/13/19 12/31/20 History Acetaminophen 500 mg PO BID 08/12/20 12/31/20 History Albuterol Sulfate [Albuterol 2 puffs IH Q6HP PRN 08/12/20 12/31/20 History Sulfate Hfa] Ferrous Sulfate [Ferrous Sulfate 325 mg PO DAILY 08/12/20 12/31/20 History 325mg Tablet] Fluticasone Propionate [Flonase 1 spr NS DAILY 08/12/20 12/31/20 History 50mcg nasal spray 16gm] Hydrocortisone 10 mg PO DAILY #30 tab 08/15/20 12/31/20 Rx Fluoxetine HCl 40 mg PO DAILY 08/19/20 12/31/20 History Hydrocortisone 5 mg PO HS 08/21/20 12/31/20 History Montelukast Sodium [Singulair] 10 mg PO HS 08/21/20 12/31/20 History Atorvastatin Calcium [Lipitor 40mg 40 mg PO HS 10/05/20 12/31/20 History Tablet*] ondansetron HCL [Zofran 4mg Tab*] 4 mg PO Q4HP PRN 10/05/20 12/31/20 History Budesonide/Formoterol Fumarate 2 puffs IH BID 10/12/20 12/31/20 History [Symbicort 160-4.5 Mcg Inhaler] Bumetanide 1 mg PO DAILY 10/12/20 12/31/20 History Lactulose [Lactulose 20gm/30ml 20 gm PO DAILYP PRN 10/12/20 12/31/20 History Oral Soln] Loratadine [Allerclear] 10 mg PO DAILY 10/12/20 12/31/20 History Trazodone HCl 100 mg PO HS 10/12/20 12/31/20 History oxycodone-acetaminophen 5 mg-325 1 tab PO Q6HP PRN #120 tab 11/02/20 12/31/20 Rx mg tablet Acetaminophen 500 mg PO Q6HP PRN 12/09/20 12/31/20 History Calcium Carbonate [Tums] 300 mg PO Q6HP P
--- NOTE | 2021-01-02 11:39 | US_ITS ---
PROCEDURE: US THORACENTESIS CLINICAL INDICATION: Left-sided parapneumonic effusion COMPARISON: No exams were available for comparison FINDINGS: Following obtaining informed consent, time-out procedure, under aseptic conditions and local anesthesia with 1 percent buffered lidocaine, using ultrasound guidance, 6 [place] Aodx-S-Efltooeb catheter was inserted into the left pleural effusion. No aspirate was able to be obtained. Catheter location was verified with ultrasound. Catheter was then withdrawn. There were no immediate complications. Postprocedure x-ray show no evidence of pneumothorax. IMPRESSION: Unsuccessful ultrasound-guided left-sided thoracentesis. Dictated by: Carlos Starks MD 01/02/2021 17:06 Carlos Starks MD in OV 01/02/2021 17:06
--- NOTE | 2021-01-02 13:29 | XR_ITS ---
PROCEDURE: XR CHEST AP CLINICAL HISTORY: POST THORCENTESIS COMPARISON: CT CT ANGIO CHEST PE PROTOCOL from 12/12/[address] CHEST WO CON from 12/31/2020 CR XR CHEST PORTABLE from 12/31/2020 CR XR CHEST PORTABLE from 12/31/2020 CR XR CHEST PORTABLE from 01/01/2021 FINDINGS: Status post attempted thoracentesis on the left. No evidence of pneumothorax. Left hemidiaphragm is elevated with left lower lobe volume loss. There may be a small left pleural effusion versus sub pulmonic effusion which was not visible by ultrasound. Further evaluation could be obtained with CT. Mild atelectatic changes are present on the right. MediPort catheter is present from right subclavian approach. No acute bony abnormalities. IMPRESSION: No evidence of pneumothorax. Left lower lobe volume loss versus subpulmonic effusion Dictated by: Carlos Starks MD 01/02/2021 13:43 Carlos Starks MD in [place] 01/02/2021 13:43
--- NOTE | 2021-01-02 16:47 | PC.NURSE ---
Pt has been pleasant and cooperative this shift. A&O X4. No complaints of pain or SOA. Pt complained of nausea X1 this AM and was medicated with Zofran per MAR. Pt reported favorable results. Pt is currently receiving O2 via NC @ 2.5 LPM with sats. >90%. Lung sounds are diminished. No edema noted. Skin is C/D/I. Reddened area noted to coccyx. Moisture barrier cream and pressure-relief dressing applied. Pt ambulates with assistance X1 and uses the BSC. Urine is clear and yellow. No BM thus far this shift. Implanted port noted to RT chest is patent and SL. VSS. Call light within reach. Will continue to monitor.
[2021-01-03] VITALS (7 sets, daily range): BP systolic 115–135; BP diastolic 63–77; PULSE 64–88; RESP 17–22; TEMP 36.6–36.8; O2SAT 94–96; BMI 31.6
--- NOTE | 2021-01-03 00:33 | PC.NURSE ---
pt. has not c/o increased soa. C/o nausea; tx with zofran per mar; effectiveness noted. Denies vomiting/diarrhea/pain/dizziness. 2.5L nc with o2 sat 95-96%. No complaints at this time.
[2021-01-03 07:07] LABS: Hematocrit 29.4 % (37.0-47.0); Hemoglobin 9.5 g/dL (12.2-16.2); Lymphocytes # 0.3 K/mm3 (0.7-4.5); Lymphocytes % 4.2 % (10-50); Mean Corpuscular HGB Conc 32.3 g/dL (31.8-35.4); Mean Corpuscular Hemoglobin 29.2 pg (27.0-31.2); Mean Corpuscular Volume 90.4 fl (81-99); Mean Platelet Volume 7.1 fl (7.4-10.4); Monocytes # 0.4 K/mm3 (0.1-1.0); Monocytes % 4.5 % (1.7-9.3); Neutrophils # 7.5 K/mm3 (1.8-7.8); Neutrophils % 91.3 % (37.0-80.0); Platelet Count 292 K/mm3 (142-424); Red Blood Count 3.26 M/mm3 (4.20-5.40); Red Cell Distribution Width 13.1 % (11.5-17.5); White Blood Count 8.2 K/mm3 (4.8-10.8)
[2021-01-03 07:11] LABS: MANUAL DIFFERENTIAL MANUAL DIFFERENTIAL (MANUAL DIFF)
[2021-01-03 07:14] LABS: Chloride 101 mmol/L (98-107)
[2021-01-03 07:15] LABS: Sodium 138 mmol/L (136-145)
[2021-01-03 07:18] LABS: Blood Urea Nitrogen 30 mg/dl (7-17); Calcium 7.9 mg/dl (8.4-10.2); Carbon Dioxide 30 mmol/L (22.0-30.0); Creatinine Clearance Estimated 31 mL/min (50-200); Estimated Glomerular Filt Rate 22 ml/min (>60); GFR (African American) 26 ML/MIN (>60); Glucose 142 mg/dl (74-100)
[2021-01-03 08:50] LABS: Lymphocytes % 4 % (10-50); Monocytes % 4 % (2-9); Neutrophils % 92 % (42-76); Total Cells Counted 100
[2021-01-03 08:51] LABS: Hypochromasia 1+; Platelet Estimate Normal
--- NOTE | 2021-01-03 08:51 | XR_ITS ---
PROCEDURE: XR CHEST PORTABLE CLINICAL HISTORY: hypoxia COMPARISON: CT CT CHEST WO CON from 12/31/2020 CR XR CHEST PORTABLE from 12/31/2020 CR XR CHEST PORTABLE from 12/31/2020 CR XR CHEST PORTABLE from 01/01/2021 CR XR CHEST AP from 01/02/2021 FINDINGS: MediPort catheter remains present from right subclavian approach with the tip in the region the SVC. Opacification is present in the left lung base consistent with consolidation with possible subpulmonic effusion. There is a small left pleural effusion noted laterally. There is increased density in the left midlung which may be related to pneumonia. Severe degenerative changes of the left shoulder. Distal aspect of the right clavicle is missing and may be due to prior surgery IMPRESSION: Persistent opacification of the left lung base which may be due to combination of volume loss/pneumonia and sub pulmonic effusion. Increasing density in the left midlung which may be related underlying pneumonia. Recent ultrasound-guided attempted thoracentesis was not successful. This could be due to very thick tenacious fluid or sub pulmonic effusion which was not able to be visualized. Consider repeating chest CT to determine any degree of residual fluid and location of the possible fluid. Dictated by: Carlos Starks MD 01/03/2021 09:33 Carlos Starks MD in [place] 01/03/2021 09:33
--- NOTE | 2021-01-03 09:14 | HMH.ACPN2 ---
Internal Medicine - PN: Subj *Date: 01/03/21 *Time: 19:16 Interval history: 75-year-old female patient sitting up in bed resting quietly with eyes closed, awakens to verbal stimuli. She denies any shortness of breath or chest pain during the night. Oxygen saturation 94% on 3 L per nasal cannula. Ultrasound-guided thoracentesis was unsuccessful yesterday. We will consult cardiology today for elevated BNP and history of CHF. Exam Vital signs and Labs for Last 24 Hours: Temp Pulse Resp BP Pulse Ox 97.9 F 86 18 117/63 95 01/03/21 08:00 01/03/21 08:00 01/03/21 08:00 01/03/21 08:00 01/03/21 08:00 Laboratory Results - last 24 hr 01/03/21 06:18: WBC 8.2, RBC 3.26 L, Hgb 9.5 L, Hct 29.4 L, MCV 90.4, MCH 29.2, MCHC 32.3, RDW 13.1, Plt Count 292, MPV 7.1 L, Neut % (Auto) 91.3 H, Lymph % (Auto) 4.2 L, [place] % (Auto) 4.5, Eos % (Auto) 0.0 L, Baso % (Auto) 0.0 L, Neut # (Auto) 7.5, Lymph # (Auto) 0.3 L, [place] # (Auto) 0.4, Eos # (Auto) 0.0, Baso # (Auto) 0.0, Total Counted 100, Neutrophils % (Manual) 92 H, Lymphocytes % (Manual) 4 L, Monocytes % (Manual) 4, Platelet Estimate Normal, Hypochromasia 1+ 01/03/21 06:18: Sodium 138, Potassium 4.0, Chloride 101, Carbon Dioxide 30, Anion Gap 11.0, BUN 30 H D, Creatinine 2.20 H, Estimated Creat Clear 31, Estimated GFR 22 L, Est GFR ( Amer) 26 L, Glucose 142 H, Calcium 7.9 L I & O for Last 24 hours: Intake & Output 12/31/20 01/01/21 01/02/21 01/03/21 23:59 23:59 23:59 23:59 Intake Total 120 / 120 840 / 840 940 / 940 120 / 120 Output Total 0 / 0 Balance 120 / 120 840 / 840 940 / 940 120 / 120 Weight 194 lb 9 oz 194 lb 8.998 oz 190 lb 190 lb Microbiology Reports for the Last 24 Hours: Microbiology 12/31/20 18:30 Thoracic Fluid Gram Stain - Final 12/31/20 18:30 Thoracic Fluid Body Fluid Culture - Preliminary NO GROWTH AFTER 48 HOURS 12/31/20 13:58 Blood Blood Culture - Preliminary NO GROWTH AFTER 48 HOURS 12/31/20 13:58 Blood Blood Culture - Preliminary NO GROWTH AFTER 48 HOURS - Constitutional no acute distress, obese - *Routine HEENT Exam Head: Present: normocephalic Eye: Present: EOMI ENT: Present: mucous membranes moist - *Routine Neck Exam Present: trachea midline. Absent: tracheal deviation - *Routine Respiratory Exam Present: decreased breath sounds, wheezes. Absent: accessory muscle use - *Routine Cardiovascular Exam Present: RRR - *Routine Abdominal Exam Present: soft, normoactive bowel sounds. Absent: tenderness, firm - *Routine Extremities Exam Present: edema, full ROM, pulses intact. Absent: cyanosis, clubbing, calf tenderness - *Routine Skin Exam Present: dry, warm. Absent: cyanosis, erythema Comments: Reddened Coccyx. not open - *Routine Neurological Exam Present: alert, oriented X3. Absent: sensory deficit - Routine Psychiatric Exam Present: normal affect, normal thought process. Absent: auditory hallucinations, visual hallucinations Assessment and Plan (1) Pleural effusion Status: Acute Category: Medical Code(s): J90 - Pleural effusion, not elsewhere classified (2) ANDRIA (acute kidney injury) Status: Acute Category: Medical Code(s): N17.9 - Acute kidney failure, unspecified (3) COPD (chronic obstructive pulmonary disease) Status: Acute Qualifiers: COPD type: unspecified COPD Qualified Code(s): J44.9 - Chronic obstructive pulmonary disease, unspecified Category: Medical Code(s): J44.9 - Chronic obstructive pulmonary disease, unspecified (4) History of MRSA infection of lungs Status: Acute Category: Medical Code(s): Z86.14 - Personal history of Methicillin resistant Staphylococcus aureus infection (5) Obesity (BMI 30.0-34.9) Status: Acute Category: Medical Code(s): E66.9 - Obesity, unspecified - Assessment and plan all Dx Assessment and Plan for all problems:: R
--- NOTE | 2021-01-03 10:06 | HMH.CNCARD ---
History of Present Illness Consult date: 01/03/21 Requesting physician: Luis Hanson Chief complaint: COPD History of present illness: 75-year-old female has been admitted to [facility] for left-sided pleural effusion with possible thoracentesis. Patient did undergo thoracentesis 2 to 3 days ago in which fluid was removed. Since thoracentesis, patient has been having worsening shortness of breath. Cardiology was consulted due to patient having history of congestive heart failure. Patient noted to have severe COPD and requires oxygen at 2 L. This is being managed by pulmonology. Patient is also being treated with antibiotics managed by pulmonology and PCP. Patient is alert and oriented to person and place. Patient denies chest pain, tightness or pressure. Patient does continue to planing of increased shortness of breath especially with exertion. Slight swelling noted of the lower extremities. Patient denies dizziness or palpitations. Patient does have history of atrial fibrillation. However patient's in sinus rhythm with a heart rate of 78 bpm. Blood pressure is stable at this time. Creatinine noted to be 2.20. BNP noted to be over 1000. Echocardiogram was performed in November 2020 which revealed EF 55% with no regional wall motion abnormality there was mild left ventricular hypertrophic, mildly enlarged right ventricle with normal contractility, with mild TR and MR . Pulmonary hypertension noted 41 mmHg. Patient does have history of coronary artery disease. Last heart catheterization was in 2018 which revealed medical management, patient was noted to have type II myocardial infarction which was demand ischemia from her severe respiratory failure. Echo (12/07)Conclusion 1. Technically difficult study because of the patient factors and poor acoustic windows. 2. Mild biatrial enlargement, normal left ventricular size, mild concentric left ventricular hypertrophy, visually estimated ejection fraction 55% with no regional wall motion abnormality, diastolic parameters are inconclusive. 3. Mildly enlarged right ventricle with normal contractility. 4. Trace mitral and tricuspid regurgitation, calculated right ventricular systolic pressure is 41 mmHg. 5. No significant pericardial effusion noted. [facility] (2018) ANGIOGRAPHIC RESULTS: 1. The left main artery normal 2. The left anterior descending artery normal 3. The circumflex artery nondominant but has a proximal concentric 50-60% stenosis 4. The right coronary artery large and has mid vessel calcified 30% nonflow limiting stenoses 5. The QUINTANILLA ventriculogram reveals hyper dynamic at 70% 6. The left ventricular end-diastolic pressure 15 mmHg IMPRESSION: 1. Moderate disease in the proximal to mid nondominant circumflex artery 2. Hyperdynamic ventricle consistent with diastolic dysfunction 3. Mildly elevated LVEDP PLAN: 1. Medical management 2. Patient had a type II myocardial infarction which was demand ischemia from her severe respiratory failure 3. Ejection fraction has significantly improved since patient's respiratory failure Discussed plan of care with Dr. Cameron. Orders were received from Dr. Cameron. Management of left sided pleural effusion and COPD deferred to management by PCP and pulmonology. Will give patient 1 dose of Lasix 40 mg IV due to congestive heart failure. Repeat BMP in a.m. Please continue to monitor patient status. No further cardiac testing is recommended at this time due to patient's respiratory status. Please notify cardiology of any changes in patient status. Thank you for allowing cardiology to participate in the care of this patient. [facility] History I have reviewed the patient's past medical history: Yes Medical History: Reports:: Anxiety, Arrhythmia, Atrial Fibrillation, Cardiomyopathy, Congestive Heart Failure, Chronic Obstructive Pulmonary Disease (COPD), Congenital Heart Disease, Coronary Artery Disease,
[2021-01-03 11:38] LABS: Albumin, Body Fluid 1.9 g/dL (Not Estab.); Glucose, Body Fluid 64 mg/dL (.); LD, Body Fluid 372 IU/L (.); Protein, Body Fluid 3.8 g/dL (.)
--- NOTE | 2021-01-03 12:36 | HMH.PULMPN ---
Internal Medicine - PN: Subj *Date: 01/03/21 *Time: 12:36 Interval history: No acute respiratory events overnight. Exam - Constitutional Constitutional:: Present: no acute distress - HENMT Exam HENMT: Present: normocephalic, atraumatic - Eye Exam Eyes:: Present: normal appearance both eyes and related structures - Neck Exam Neck:: Present: normal visual inspection - Respiratory Exam Respiratory:: Present: able to speak in complete sentences, respiratory distress, decreased breath sounds, crackles - Cardiovascular Exam Cardiac:: Present: S1, S2 - GI Exam GI:: Present: soft - Skin Exam Skin: Present: warm, no rash - Neurological Exam Neurological: Present: alert, awake, normal cognition - Extremities Exam Extremities: Present: no cyanosis, no clubbing, edema Assessment and Plan (1) Pleural effusion Status: Acute Category: Medical Code(s): J90 - Pleural effusion, not elsewhere classified (2) ANDRIA (acute kidney injury) Status: Acute Category: Medical Code(s): N17.9 - Acute kidney failure, unspecified (3) COPD (chronic obstructive pulmonary disease) Status: Acute Qualifiers: COPD type: unspecified COPD Qualified Code(s): J44.9 - Chronic obstructive pulmonary disease, unspecified Category: Medical Code(s): J44.9 - Chronic obstructive pulmonary disease, unspecified (4) History of MRSA infection of lungs Status: Acute Category: Medical Code(s): Z86.14 - Personal history of Methicillin resistant Staphylococcus aureus infection (5) Obesity (BMI 30.0-34.9) Status: Acute Category: Medical Code(s): E66.9 - Obesity, unspecified - Assessment and plan all Dx Assessment and Plan for all problems:: #Acute on chronic hypoxic respiratory failure: #Left-sided Exudative effusion: 75 Y/O with history of bronchiectasis, MRSA and Pseudomonas pneumonia recently discharged with 14 days of levofloxacin presented to the hospital again with worsening respiratory failure and worsening left-sided pleural effusion. Patient chest from recent admission showed right lower lobe pulmonary made along with new left-sided pleural effusion at that time that is progressively getting worse. Thoracentesis performed over the weekend with removal of 300 cc and were sent for analysis, pleural fluid appeared to be exudative. Pleural fluid glucose 64. Gram stain culture negative so far. Repeat ultrasound did not show any obvious fluid pocket, CT scan from admission reviewed, patient has predominant left lower lobe atelectasis along with rim of pleural fluid around it along with a loculated pocket. Echocardiogram from 11/2020 showed LV diastolic dysfunction. RVSP estimated at 41. Bilateral lower extremity edema noted. Patient CT from most recent admission showed left lower lobe pleural-based airspace disease/mass and with her worsening effusion concerning for parapneumonic effusion. Most recent sputum culture grew Carbapenem resistant Klebsiella and Pseudomonas Plan: - Sputum induction with sputum cultures - Chest percussion therapy Q12 hrs and Incentive spirometry Q2 hrs - Repeat CT chest WO contrast to evaluate for any residual effusion -Continue Vanc and cefepime -DuoNebs every 6 hours scheduled along with budesonide every 12 schedule #Thank you for involving pulmonary in this patient care. We will continue to follow.
--- NOTE | 2021-01-03 12:43 | CT_ITS ---
PROCEDURE: CT CHEST WO CON CLINICAL INDICATION: Empyema COMPARISON: CT CT CHEST WO CON from 12/31/2020 TECHNIQUE: Axial images obtained with sagittal and coronal reformats. All CT scans at the facility use one or more dose reduction, viz: automated exposure control, ma/kV adjustment per patient size (including targeted exams where dose is matched to indication, i.e. head), or iterative reconstruction technique. FINDINGS: There is left-sided lung volume loss with slight mediastinal shift toward the left. Loculated effusion is present in the left lung base posteriorly, laterally,. Loculated component is present also in the posterior aspect the mid lung zone on the left. There is volume loss/consolidation in the left lower lobe and lingula. The volume of the effusion has somewhat decreased compared to the previous exam. Atelectatic changes are present in the right middle lobe inferiorly. There are coronary artery calcifications. MediPort catheter is present with the tip in the region the SVC. There are degenerative changes in the thoracic spine. There is mild thoracolumbar scoliosis convex right. IMPRESSION: Loculated left-sided pleural effusion as described above with left sided consolidation volume loss with some mediastinal shift toward the left. Dictated by: Carlos Starks MD 01/03/2021 15:02 Carlos Starks MD in [place] 01/03/2021 15:02
[2021-01-03 17:02] LABS: Vancomycin,Trough 15.3 ug/mL (5.0-10.0)
--- NOTE | 2021-01-03 20:03 | PC.NURSE ---
PT IS SITTING UP IN THE CHAIR. PT STATES SHE IS FEELING BETTER TODAY. PT'S DAUGHTER CALLED TODAY AND STATED SHE NOTICED PT WAS HAVING SOME ISSUES WITH FINDING HER WORDS AND SEEMED IF SHE WAS MORE CONFUSED THIS ADMISSION. DURING ASSESSMENT PT WAS ALERT AND ORIENTED X4. PT WAS ABLE TO HAVE A NORMAL CONVERSATION. PT STATED SHE DOES NOT CARE FOR IT AT [facility] AND IS HOPING SHE CAN GET BACK TO [facility] B/C SHE WAS SO MUCH HAPPIER. LUNG SOUNDS DIMINISHED WITH SCATTERED CRACKLES. ABDOMEN SOFT/NON TENDER WITH ACTIVE BOWEL SOUNDS. EATING AND DRINKING WELL. PT HAS DIURESED WELL WITH IV LASIX. VSS. WILL CONTINUE TO MONITOR.
[2021-01-03 23:38] LABS: Vancomycin,Peak 42.9 ug/ml (11-39)
[2021-01-04] VITALS (8 sets, daily range): BP systolic 125–172; BP diastolic 70–100; PULSE 84–98; RESP 20–24; TEMP 36.3–37.4; O2SAT 92–98; BMI 31.4
[2021-01-04 02:57] LABS: POC Glucose,Bedside 136 (70-110)
--- NOTE | 2021-01-04 03:03 | CT_ITS ---
PROCEDURE INFORMATION: Exam: CT Head Without Contrast Exam date and time: 01/04/2021 3:03 AM Age: 75 years old Clinical indication: Altered mental status/memory loss; Patient HX: AMS; Additional info: Change in loc TECHNIQUE: Imaging protocol: Computed tomography of the head without contrast. 3D rendering (Not supervised by radiologist): MIP and/or 3D reconstructed images were created by the technologist. Radiation optimization: All CT scans at this facility use at least one of these dose optimization techniques: automated exposure control; mA and/or kV adjustment per patient size (includes targeted exams where dose is matched to clinical indication); or iterative reconstruction. COMPARISON: CT HEAD/BRAIN WO CON 10/05/2020 2:55 AM FINDINGS: Brain: There is diffuse prominence of the cerebral sulci, cisterns, and ventricles consistent with atrophy. No intra or extra-axial fluid collections are noted. No mass or mass effect is seen. Periventricular white matter hypoattenuation is seen consistent with small vessel chronic ischemic changes. Cerebral ventricles: No ventriculomegaly. Paranasal sinuses: Visualized sinuses are unremarkable. No fluid levels. Mastoid air cells: Visualized mastoid air cells are well aerated. Bones/joints: Unremarkable. No acute fracture. Soft tissues: Unremarkable. IMPRESSION: No acute changes identified.
--- NOTE | 2021-01-04 03:44 | PC.NURSE ---
A around 0230, Amanda made this RN aware of a change in behavior. When i entered the room, the pt was moaning and holding her head, repeating it hurts so bad . The pt had a blank stare on her face, i had to repeatedly say her name before she looked at me. Pt was able to tell me her name and follow commands. Pt did not know where she was and began crying and begging staff to stay with her. This RN made her primary RN, Maricruz, aware of the situation. Dr Hanson was called and ordered a stat head CT.
[2021-01-04 06:36] LABS: Basophils % 0.1 % (0.1-2.0); Hematocrit 29.3 % (37.0-47.0); Hemoglobin 9.8 g/dL (12.2-16.2); Lymphocytes # 0.3 K/mm3 (0.7-4.5); Lymphocytes % 3.8 % (10-50); Mean Corpuscular HGB Conc 33.3 g/dL (31.8-35.4); Mean Corpuscular Hemoglobin 29.4 pg (27.0-31.2); Mean Corpuscular Volume 88.1 fl (81-99); Mean Platelet Volume 7.8 fl (7.4-10.4); Monocytes # 0.4 K/mm3 (0.1-1.0); Monocytes % 4.1 % (1.7-9.3); Neutrophils # 8.3 K/mm3 (1.8-7.8); Platelet Count 333 K/mm3 (142-424); Red Blood Count 3.33 M/mm3 (4.20-5.40); Red Cell Distribution Width 12.9 % (11.5-17.5)
[2021-01-04 06:38] LABS: Chloride 101 mmol/L (98-107); Potassium 3.9 mmoL/L (3.5-5.1); Sodium 139 mmol/L (136-145)
[2021-01-04 06:40] LABS: Blood Urea Nitrogen 39 mg/dl (7-17); Creatinine Clearance Estimated 31 mL/min (50-200); Estimated Glomerular Filt Rate 22 ml/min (>60); GFR (African American) 26 ML/MIN (>60)
[2021-01-04 06:41] LABS: Anion Gap 10.9 mEq/L (5-15); Calcium 7.9 mg/dl (8.4-10.2); Carbon Dioxide 31 mmol/L (22.0-30.0); Glucose 130 mg/dl (74-100)
[2021-01-04 06:49] LABS: MANUAL DIFFERENTIAL MANUAL DIFFERENTIAL (MANUAL DIFF)
--- NOTE | 2021-01-04 07:48 | PC.NURSE ---
Patient has had a change in mental staff this shift. CT w/o contrast was done. At initial assessment (beginning of this shift) patient was A&Ox 4. Patient is alert to self and birthday. She does follow simple commands, PEERLA, has equal strength and seasoning mixer BUE, she is able to lift both legs but does have a continuous shake in her lower extremities that when asked to hold her legs still she states Ok I will or I can do that but is not able to. At times she states her head hurts then she will state she is not in any pain. Patients family at bedside. Received v.o. from Dr. Hanson for Rectal Temp, Bolus NS, CBC, CMP, Procalcitonin, ESR, Blood cultures x 2, Lactic Acid. Results are pending. Call light within reach, bed at lowest level for safety, no Acute distress noted; will continue to monitor.
[2021-01-04 07:58] LABS: Lymphocytes % 1 % (10-50); Monocytes % 6 % (2-9); Neutrophils % 93 % (42-76); Platelet Estimate Normal; RBC Morphology Normal; Total Cells Counted 100
[2021-01-04 08:05] LABS: Alanine Aminotransferase 9 U/L (12-78); Albumin Level 3.2 g/dl (3.5-5.0); Alkaline Phosphatase 76 U/L (38-126); Aspartate Amino Transferase 23 U/L (14-36); Bilirubin,Total 0.4 mg/dl (0.2-1.3); Total Protein,Serum 6.4 g/dl (6.3-8.2)
[2021-01-04 08:07] LABS: Bilirubin,Indirect 0.4 mg/dL (0.0-0.9); Bilirubin,Unconjugated 0.3 mg/dL (0.0-1.1)
[2021-01-04 08:08] LABS: Erythrocyte Sedimentation Rate > 140 mm/hr (0-30)
[2021-01-04 09:05] LABS: Lactic Acid 1.1 mmol/L (0.7-2.1)
[2021-01-04 09:13] LABS: Procalcitonin 0.406 ng/mL (0.0-2.0)
--- NOTE | 2021-01-04 09:26 | FL_ITS ---
PROCEDURE: FL GUIDED LUMBAR PUNCTURE LP CLINICAL INDICATION: ams COMPARISON: No exams were available for comparison TECHNIQUE: Fluoroscopy time: 59 seconds Informed consent was obtained prior to procedure. Under local anesthesia with 1% lidocaine and under fluoroscopic guidance a 20-gauge spinal needle was inserted into the L3-L4 interspace. Approximately 10 cc of clear CSF was obtained and sent to laboratory for analysis. The patient tolerated the procedure well without evidence of immediate complication IMPRESSION: Successful fluoroscopy guided lumbar puncture without complications. Dictated by: Carlos Starks MD 01/04/2021 11:16 Carlos Starks MD in [facility] 01/04/2021 11:16
--- NOTE | 2021-01-04 09:30 | HMH.ACPN2 ---
Internal Medicine - PN: Subj *Date: 01/04/21 *Time: 08:50 Interval history: pt laying in bed with triligy inplace family at bedside, pt answers questions sanjay. but confused at times Exam Vital signs and Labs for Last 24 Hours: Temp Pulse Resp BP Pulse Ox 97.9 F 95 H 24 125/82 98 01/04/21 04:00 01/04/21 07:59 01/04/21 07:59 01/04/21 07:59 01/04/21 07:59 Laboratory Results - last 24 hr 12/31/20 18:30: Fluid Glucose 64, Fluid Albumin 1.9, Fluid LDH 372 12/31/20 18:30: Fluid Total Protein 3.8 01/03/21 14:30: Vancomycin Trough 15.3 H 01/03/21 22:28: Vancomycin Peak 42.9 H* 01/04/21 02:48: POC Glucose 136 H 01/04/21 05:50: WBC 9.0, RBC 3.33 L, Hgb 9.8 L, Hct 29.3 L, MCV 88.1, MCH 29.4, MCHC 33.3, RDW 12.9, Plt Count 333, MPV 7.8, Neut % (Auto) 92.0 H, Lymph % (Auto) 3.8 L, [place] % (Auto) 4.1, Eos % (Auto) 0.0 L, Baso % (Auto) 0.1, Neut # (Auto) 8.3 H, Lymph # (Auto) 0.3 L, [place] # (Auto) 0.4, Eos # (Auto) 0.0, Baso # (Auto) 0.0, Total Counted 100, Neutrophils % (Manual) 93 H, Lymphocytes % (Manual) 1 L, Monocytes % (Manual) 6, Platelet Estimate Normal, RBC Morphology Normal 01/04/21 05:50: Sodium 139, Potassium 3.9, Chloride 101, Carbon Dioxide 31 H, Anion Gap 10.9, BUN 39 H D, Creatinine 2.20 H, Estimated Creat Clear 31, Estimated GFR 22 L, Est GFR ( Amer) 26 L, Glucose 130 H, Calcium 7.9 L 01/04/21 05:50: Total Bilirubin 0.4, Direct Bilirubin 0.0, Conjugated Bilirubin 0.0, Indirect Bilirubin 0.4, Unconjugated Bilirubin 0.3, AST 23, ALT 9 L, Alkaline Phosphatase 76, Total Protein 6.4, Albumin 3.2 L, Procalcitonin 0.406 01/04/21 05:50: ESR > 140 H 01/04/21 08:50: Lactate 1.1 I & O for Last 24 hours: Intake & Output 01/01/21 01/02/21 01/03/21 01/04/21 11:59 11:59 11:59 11:59 Intake Total 360 / 360 960 / 960 700 / 700 720 / 720 Output Total 0 / 0 Balance 360 / 360 960 / 960 700 / 700 720 / 720 Weight 194 lb 8.998 oz 194 lb 0.108 oz 190 lb 188 lb 12.8 oz Microbiology Reports for the Last 24 Hours: Microbiology 12/31/20 18:30 Thoracic Fluid Gram Stain - Final 12/31/20 18:30 Thoracic Fluid Body Fluid Culture - Preliminary NO GROWTH AFTER 72 HOURS - Constitutional no acute distress - *Routine HEENT Exam Head: Present: normocephalic Eye: Present: PERRL ENT: Present: mucous membranes moist - *Routine Neck Exam Present: supple. Absent: lymphadenopathy - *Routine Respiratory Exam Present: decreased breath sounds - *Routine Cardiovascular Exam Present: RRR - *Routine Abdominal Exam Present: soft, normoactive bowel sounds. Absent: tenderness - *Routine Extremities Exam Absent: cyanosis, clubbing, edema - *Routine Skin Exam Present: warm. Absent: rash - *Routine Neurological Exam Present: alert, oriented X3 - Routine Psychiatric Exam Present: normal affect Assessment and Plan (1) Pleural effusion Status: Acute Category: Medical Code(s): J90 - Pleural effusion, not elsewhere classified (2) ANDRIA (acute kidney injury) Status: Acute Category: Medical Code(s): N17.9 - Acute kidney failure, unspecified (3) COPD (chronic obstructive pulmonary disease) Status: Acute Qualifiers: Qualified Code(s): J44.9 - Chronic obstructive pulmonary disease, unspecified Category: Medical Code(s): J44.9 - Chronic obstructive pulmonary disease, unspecified (4) History of MRSA infection of lungs Status: Acute Category: Medical Code(s): Z86.14 - Personal history of Methicillin resistant Staphylococcus aureus infection (5) Obesity (BMI 30.0-34.9) Status: Acute Category: Medical Code(s): E66.9 - Obesity, unspecified - Assessment and plan all Dx Assessment and Plan for all problems:: rounded with dr dillon all orders per dr dillon crp,procaliton,ua abg,LP to eval confusion
[2021-01-04 09:31] LABS: ABG Base Excess -0.4 mmol/L (-2.4-2.3); ABG HCO3 24.4 mmhg (22.0-26.0); ABG Oxygen Saturation 95 % (90-100); ABG PCO2 40.4 mmhg (35.0-45.0); ABG PO2 74.6 mmhg (80-100); ABG TCO2 25.6 mmhg (23-27)
[2021-01-04 09:33] LABS: Allen's Test ACCEPTABLE; Oxygen 3LPM %; Source L RADIAL
[2021-01-04 09:48] LABS: Microscopic, Urine URINE MICROSCOPIC (MICROSCOPIC)
--- NOTE | 2021-01-04 09:51 | HMH.PHACONS ---
- Pharmacy Consult Date: 01/04/21 Time: 09:51 Referring provider: HAKEEM Reason for Consult:: VANCOMYCIN DOSE CHANGE Allergies and ADEs:: Allergies Allergy/AdvReac Type Severity Reaction Status Date / Time hydrocodone [HYDROCODONE] Allergy Severe dizziness, Verified 12/30/20 10:31 n/v codeine [CODEINE] Allergy Intermediate dizziness. Verified 12/30/20 10:31 n/v Sulfa (Sulfonamide AdvReac Mild n/v Verified 12/30/20 10:31 Antibiotics) [SULFA (SULFONAMIDE ANTIBIOTICS)] Home Medications:: Home Medications Medication Instructions Recorded Confirmed Type Pilocarpine HCl [Salagen] 7.5 mg PO TID 05/24/17 12/31/20 History Pantoprazole Sodium [Protonix 40mg 40 mg PO DAILY 10/28/18 12/31/20 History tablet] guaiFENesin [Mucinex] 1,200 mg PO BID 05/25/19 12/31/20 History Promethazine HCl 12.5 mg PO Q6HP PRN 07/13/19 12/31/20 History Roflumilast [Daliresp] 500 mcg PO DAILY 07/13/19 12/31/20 History Acetaminophen 500 mg PO BID 08/12/20 12/31/20 History Albuterol Sulfate [Albuterol 2 puffs IH Q6HP PRN 08/12/20 12/31/20 History Sulfate Hfa] Ferrous Sulfate [Ferrous Sulfate 325 mg PO DAILY 08/12/20 12/31/20 History 325mg Tablet] Fluticasone Propionate [Flonase 1 spr NS DAILY 08/12/20 12/31/20 History 50mcg nasal spray 16gm] Hydrocortisone 10 mg PO DAILY #30 tab 08/15/20 12/31/20 Rx Fluoxetine HCl 40 mg PO DAILY 08/19/20 12/31/20 History Hydrocortisone 5 mg PO HS 08/21/20 12/31/20 History Montelukast Sodium [Singulair] 10 mg PO HS 08/21/20 12/31/20 History Atorvastatin Calcium [Lipitor 40mg 40 mg PO HS 10/05/20 12/31/20 History Tablet*] ondansetron HCL [Zofran 4mg Tab*] 4 mg PO Q4HP PRN 10/05/20 12/31/20 History Budesonide/Formoterol Fumarate 2 puffs IH BID 10/12/20 12/31/20 History [Symbicort 160-4.5 Mcg Inhaler] Bumetanide 1 mg PO DAILY 10/12/20 12/31/20 History Lactulose [Lactulose 20gm/30ml 20 gm PO DAILYP PRN 10/12/20 12/31/20 History Oral Soln] Loratadine [Allerclear] 10 mg PO DAILY 10/12/20 12/31/20 History Trazodone HCl 100 mg PO HS 10/12/20 12/31/20 History oxycodone-acetaminophen 5 mg-325 1 tab PO Q6HP PRN #120 tab 11/02/20 12/31/20 Rx mg tablet Acetaminophen 500 mg PO Q6HP PRN 12/09/20 12/31/20 History Calcium Carbonate [Tums] 300 mg PO Q6HP PRN 12/09/20 12/31/20 History Gabapentin 300 mg PO BID 12/09/20 12/31/20 History L.acidoph,Paracasei, B.lactis 1 each PO DAILY 12/09/20 12/31/20 History [Probiotic] Acetylcysteine [Acetylcysteine 20% 1 ml IN QIDRT 12/10/20 12/31/20 History 1mL syr (Resp Therapy)] Ipratropium/Albuterol Sulfate 3 ml IH QID 12/10/20 12/31/20 History [Duoneb 3mL neb] Trospium Chloride 20 mg PO DAILY 12/10/20 12/31/20 History guaiFENesin [Robitussin 200mg/10mL 200 mg PO Q8HP PRN 12/10/20 12/31/20 History Syrup Udc] Tiotropium [place] [Spiriva 2 inh INHALATION DAILY 12/30/20 12/31/20 History Respimat] Cholecalciferol (Vitamin D3) 1,000 unit PO DAILY 12/31/20 12/31/20 History [Vitamin D3 1,000 Unit Tab] Hydroxychloroquine Sulfate 200 mg PO DAILY 12/31/20 12/31/20 History [Plaquenil 200mg tablet] Sennosides [Senna] 8.6 mg PO DAILY 12/31/20 12/31/20 History Height: 1.65 m Weight: 85.638 kg Laboratory Results:: Laboratory Results - last 24 hr 12/31/20 18:30: Fluid Glucose 64, Fluid Albumin 1.9, Fluid LDH 372 12/31/20 18:30: Fluid Total Protein 3.8 01/03/21 14:30: Vancomycin Trough 15.3 H 01/03/21 22:28: Vancomycin Peak 42.9 H* 01/04/21 02:48: POC Glucose 136 H 01/04/21 05:50: WBC 9.0, RBC 3.33 L, Hgb 9.8 L, Hct 29.3 L, MCV 88.1, MCH 29.4, MCHC 33.3, RDW 12.9, Plt Count 333, MPV 7.8, Neut % (Auto) 92.0 H, Lymph % (Auto) 3.8 L, [place] % (Auto) 4.1, Eos % (Auto) 0.0 L, Baso % (Auto) 0.1, Neut # (Auto) 8.3 H, Lymph # (Auto) 0.3 L, [place] # (Auto) 0.4, Eos # (Auto) 0.0, Baso # (Auto) 0.0, Total Counted 100, Neutrophils % (Manual) 93 H, Lymphocytes % (Manual) 1 L, Monocytes % (Manual) 6, Platelet Estimate Normal, RBC Morphology Norm
[2021-01-04 10:05] LABS: Appearance,Urine CLEAR (Clear); Bilirubin,Urine Negative (Negative); Blood, Urine 1+ (Negative); Color,Urine YELLOW (Yellow); Glucose,Urine (UA) Negative (Negative); Ketones,Urine TRACE (Negative); Leukocyte Esterase,Urine Negative (Negative); Nitrate,Urine Negative (Negative); Protein,Urine TRACE (Negative); Urobilinogen,Urine 0.2 EU/dl (0.2)
[2021-01-04 10:20] LABS: C-Reactive Protein 21.1 mg/L (0-4)
--- NOTE | 2021-01-04 10:20 | P.PN_ITS ---
Internal Medicine - PN: Subj *Date: 01/04/21 *Time: 10:20 Exam Vital signs and Labs for Last 24 Hours: Temp Pulse Resp BP Pulse Ox 97.9 F 95 H 24 125/82 98 01/04/21 04:00 01/04/21 07:59 01/04/21 07:59 01/04/21 07:59 01/04/21 07:59 Laboratory Results - last 24 hr 12/31/20 18:30: Fluid Glucose 64, Fluid Albumin 1.9, Fluid LDH 372 12/31/20 18:30: Fluid Total Protein 3.8 01/03/21 14:30: Vancomycin Trough 15.3 H 01/03/21 22:28: Vancomycin Peak 42.9 H* 01/04/21 02:48: POC Glucose 136 H 01/04/21 05:50: WBC 9.0, RBC 3.33 L, Hgb 9.8 L, Hct 29.3 L, MCV 88.1, MCH 29.4, MCHC 33.3, RDW 12.9, Plt Count 333, MPV 7.8, Neut % (Auto) 92.0 H, Lymph % (Auto) 3.8 L, [place] % (Auto) 4.1, Eos % (Auto) 0.0 L, Baso % (Auto) 0.1, Neut # (Auto) 8.3 H, Lymph # (Auto) 0.3 L, [place] # (Auto) 0.4, Eos # (Auto) 0.0, Baso # (Auto) 0.0, Total Counted 100, Neutrophils % (Manual) 93 H, Lymphocytes % (Manual) 1 L, Monocytes % (Manual) 6, Platelet Estimate Normal, RBC Morphology Normal 01/04/21 05:50: Sodium 139, Potassium 3.9, Chloride 101, Carbon Dioxide 31 H, Anion Gap 10.9, BUN 39 H D, Creatinine 2.20 H, Estimated Creat Clear 31, Estimated GFR 22 L, Est GFR ( Amer) 26 L, Glucose 130 H, Calcium 7.9 L 01/04/21 05:50: Total Bilirubin 0.4, Direct Bilirubin 0.0, Conjugated Bilirubin 0.0, Indirect Bilirubin 0.4, Unconjugated Bilirubin 0.3, AST 23, ALT 9 L, Alkaline Phosphatase 76, Total Protein 6.4, Albumin 3.2 L, Procalcitonin 0.406 01/04/21 05:50: ESR > 140 H 01/04/21 08:50: Lactate 1.1 01/04/21 09:29: Specimen Source L radial, O2 % 3lpm, ABG pH 7.40, ABG pCO2 40.4, ABG pO2 74.6 L, ABG HCO3 24.4, ABG Total CO2 25.6, ABG O2 Saturation 95, ABG Base Excess -0.4, Carlos Test Acceptable I & O for Last 24 hours: Intake & Output 01/01/21 01/02/21 01/03/21 01/04/21 23:59 23:59 23:59 23:59 Intake Total 840 / 840 940 / 940 840 / 840 0 / 0 Balance 840 / 840 940 / 940 840 / 840 0 / 0 Weight 88.252 kg 86.183 kg 86.183 kg 85.638 kg Microbiology Reports for the Last 24 Hours: Microbiology 12/31/20 18:30 Thoracic Fluid Gram Stain - Final 12/31/20 18:30 Thoracic Fluid Body Fluid Culture - Preliminary NO GROWTH AFTER 72 HOURS Assessment and Plan (1) Pleural effusion Status: Acute Category: Medical Code(s): J90 - Pleural effusion, not elsewhere classified (2) ANDRIA (acute kidney injury) Status: Acute Category: Medical Code(s): N17.9 - Acute kidney failure, unspecified (3) COPD (chronic obstructive pulmonary disease) Status: Acute Qualifiers: COPD type: unspecified COPD Qualified Code(s): J44.9 - Chronic obstructive pulmonary disease, unspecified Category: Medical Code(s): J44.9 - Chronic obstructive pulmonary disease, unspecified (4) History of MRSA infection of lungs Status: Acute Category: Medical Code(s): Z86.14 - Personal history of Methicillin resistant Staphylococcus aureus infection (5) Obesity (BMI 30.0-34.9) Status: Acute Category: Medical Code(s): E66.9 - Obesity, unspecified The patient's infection will respond to the chosen ABx?: Yes (EMPIRIC THERAPY, NO CULTURES RESULTED) Is the patient receiving the right drug, dose, and route?: Yes Could a more targeted ABx be ordered?: No
--- NOTE | 2021-01-04 11:16 | DIET.NUTRFU ---
Addendum entered by Sarita King 01/06/21 10:19: Continues with AMS/feeling very poorly. PO intakes 25% with refusal 2 meals. Continues with BID supplements. Please continue to assist all meals and encourage/cue. Original Note: Pt doing poorly with AMS. PO intakes 25% which is very unlike pt who usually requests regular diet and has excellent appetite. She has drank some of her BID supplements of pt's preference. She stated she was very tired and just didnt feel like eating. She has c/o some intermittent nausea and had 1 episode of diarrhea. Diet liberalized from [facility] to regular at this time to encourage intakes, will monitor and alter as indicated. Weight stable over past 48h-down 6# t/o stay, no edema noted, Creatinine remains elevated 2.2.
[2021-01-04 12:06] LABS: Glucose,CSF 74 mg/dl (40-70)
--- NOTE | 2021-01-04 12:34 | CT_ITS ---
PROCEDURE: CT CHEST WO CON CLINICAL INDICATION: PNM Follow-up chest tube placement COMPARISON: No exams were available for comparison TECHNIQUE: Axial images obtained with sagittal and coronal reformats. All CT scans at the facility use one or more dose reduction, viz: automated exposure control, ma/kV adjustment per patient size (including targeted exams where dose is matched to indication, i.e. head), or iterative reconstruction technique. FINDINGS: A small bore percutaneous drainage catheter is present in the posterior upper hemithorax area in the skin at the 4th rib level. The catheter is is angled inferiorly in the subcutaneous fat. The catheter curves superficial to the 6th interspace posteriorly with the tip lying in the deep subcutaneous tissue. The catheter does not go into the pleural space. The loculated posterior superior fusion on the left superiorly has slightly decreased in size. Loculated basilar component appears slightly smaller as well. There remain atelectatic changes in the right lower lobe and right middle lobe. Stable 6 mm nodules present in the right lung base posteriorly. Atelectatic changes may have slightly improved. Thoracic curvature convex right IMPRESSION: Left-sided chest tube is not within the pleural space.. The catheter tip resides within the deep subcutaneous tissue along the superficial aspect of the chest wall at the 6 posterior interspace There has been overall slight decrease in size in the left sided pleural effusion and some improvement and left lower lobe atelectasis. Dictated by: Carlos Starks MD 01/04/2021 14:19 Carlos Starks MD in [facility] 01/04/2021 14:19
[2021-01-04 12:44] LABS: Appearance,CSF Clear (Clear)
[2021-01-04 12:48] LABS: White Blood Cell,CSF 3 cells/uL (0-5)
[2021-01-04 12:49] LABS: Volume,CSF 10 mL
--- NOTE | 2021-01-04 13:03 | HMH.PULMPN ---
Internal Medicine - PN: Subj *Date: 01/04/21 *Time: 13:03 Interval history: No acute respiratory vents overnight. Patient respiratory status remained stable. Exam - Constitutional Constitutional:: Present: no acute distress - HENMT Exam HENMT: Present: normocephalic, atraumatic - Eye Exam Eyes:: Present: normal appearance both eyes and related structures - Neck Exam Neck:: Present: normal visual inspection - Respiratory Exam Respiratory:: Present: able to speak in complete sentences, no respiratory distress, decreased breath sounds, crackles. Absent: wheezing - Cardiovascular Exam Cardiac:: Present: S1, S2 - GI Exam GI:: Present: soft - Skin Exam Skin: Present: warm, no rash - Neurological Exam Neurological: Present: awake. Absent: alert, normal cognition - Extremities Exam Comments: Patient appears more incoherent today Assessment and Plan (1) Pleural effusion Status: Acute Category: Medical Code(s): J90 - Pleural effusion, not elsewhere classified (2) ANDRIA (acute kidney injury) Status: Acute Category: Medical Code(s): N17.9 - Acute kidney failure, unspecified (3) COPD (chronic obstructive pulmonary disease) Status: Acute Qualifiers: COPD type: unspecified COPD Qualified Code(s): J44.9 - Chronic obstructive pulmonary disease, unspecified Category: Medical Code(s): J44.9 - Chronic obstructive pulmonary disease, unspecified (4) History of MRSA infection of lungs Status: Acute Category: Medical Code(s): Z86.14 - Personal history of Methicillin resistant Staphylococcus aureus infection (5) Obesity (BMI 30.0-34.9) Status: Acute Category: Medical Code(s): E66.9 - Obesity, unspecified - Assessment and plan all Dx Assessment and Plan for all problems:: #Acute on chronic hypoxic respiratory failure: #Left-sided Exudative effusion: 75 Y/O with history of bronchiectasis, MRSA and Pseudomonas pneumonia recently discharged with 14 days of levofloxacin presented to the hospital again with worsening respiratory failure and worsening left-sided pleural effusion. Patient chest from recent admission showed right lower lobe pulmonary made along with new left-sided pleural effusion at that time that is progressively getting worse. Thoracentesis performed over the weekend with removal of 300 cc and were sent for analysis, pleural fluid appeared to be exudative. Pleural fluid glucose 64. Gram stain & culture negative so far. Echocardiogram from 11/2020 showed LV diastolic dysfunction. RVSP estimated at 41. Bilateral lower extremity edema noted. Most recent sputum culture grew Carbapenem resistant Klebsiella and Pseudomonas Repeat ultrasound did not show any obvious fluid pocket, CT scan from admission reviewed, patient has predominant left lower lobe atelectasis along with rim of pleural fluid around it along with a loculated pocket. Interval update: Patient repeat CT chest showed persistent loculated pleural effusion with minimal decrease from admission. No evidence of worsening leukocytosis. Patient has been afebrile. Respiratory status remained stable. Given concern for loculated effusion have attempted to place a pigtail catheter ultrasound-guided at bedside with difficulty. We will repeat a CT chest to determine the position of the catheter tip and will proceed with TPA dornase if appropriate Repeat ABG this morning within normal limits. Patient appeared more incoherent than yesterday. ESR elevated at greater than 140. CRP at 21.1 Plan: - F/U repeat CT chest WO -Continue Vanc and cefepime - Sputum induction with sputum cultures - Chest percussion therapy Q12 hrs and Incentive spirometry Q2 hrs -DuoNebs every 6 hours scheduled along with budesonide every 12 schedule #Thank you for involving pulmonary in this patient care. We will continue to follow.
[2021-01-04 13:21] LABS: Red Blood Cell,CSF 181 cells/uL (0)
[2021-01-04 13:24] LABS: Polynuclear WBCs,CSF 1 %
[2021-01-04 13:26] LABS: Mononuclear WBCs,CSF 0 %
--- NOTE | 2021-01-04 15:14 | PC.NURSE ---
Pt unable to do CPT this morning due to AMS, unable to do CPT at this moment due to drain placed earlier.
--- NOTE | 2021-01-04 16:36 | PC.NURSE ---
PATIENTS FAMILY IS CONCERNED ABOUT PATIENTS CONFUSION. THEY STATE THAT PATEINT HAD SIMILAR EPISODES OF CONFUSION WITH PAST KIDNEY DISEASE WHEN PATIENT WAS ADMITTED TO FOR DIALYSIS. PATIENT IS NOT EATING DRINKING WELL AND HAS LOW URINE OUTPUT. VSS, AND PATIENT CONTINUES WITH CONFUSED CONVERSATION.
--- NOTE | 2021-01-04 20:01 | PC.NURSE ---
pt unable to do cpt due to ams and drain placed earlier today.
[2021-01-05 04:07] VITALS: BP 149/83; PULSE 80; RESP 18; TEMP 36.7; O2SAT 98
[2021-01-05 05:00] VITALS: BMI 30.9
[2021-01-05 07:06] LABS: Basophils % 0.2 % (0.1-2.0); Hematocrit 29.2 % (37.0-47.0); Hemoglobin 9.7 g/dL (12.2-16.2); Lymphocytes # 0.4 K/mm3 (0.7-4.5); Lymphocytes % 5.7 % (10-50); Mean Corpuscular HGB Conc 33.1 g/dL (31.8-35.4); Mean Corpuscular Volume 87.7 fl (81-99); Mean Platelet Volume 7.6 fl (7.4-10.4); Monocytes # 0.3 K/mm3 (0.1-1.0); Monocytes % 5.3 % (1.7-9.3); Neutrophils # 5.6 K/mm3 (1.8-7.8); Neutrophils % 88.9 % (37.0-80.0); Platelet Count 301 K/mm3 (142-424); Red Blood Count 3.33 M/mm3 (4.20-5.40); White Blood Count 6.3 K/mm3 (4.8-10.8)
[2021-01-05 07:08] LABS: MANUAL DIFFERENTIAL MANUAL DIFFERENTIAL (MANUAL DIFF)
[2021-01-05 07:14] LABS: Chloride 103 mmol/L (98-107); Sodium 140 mmol/L (136-145)
[2021-01-05 07:17] LABS: Blood Urea Nitrogen 47 mg/dl (7-17); Creatinine Clearance Estimated 32 mL/min (50-200); Estimated Glomerular Filt Rate 23 ml/min (>60); GFR (African American) 28 ML/MIN (>60)
[2021-01-05 07:18] LABS: Calcium 7.9 mg/dl (8.4-10.2); Carbon Dioxide 28 mmol/L (22.0-30.0); Glucose 127 mg/dl (74-100)
[2021-01-05 07:57] LABS: Anisocytosis 1+; Hypochromasia 1+; Lymphocytes % 7 % (10-50); Monocytes % 3 % (2-9); Neutrophils % 90 % (42-76); Platelet Estimate Normal; Total Cells Counted 100
[2021-01-05 08:00] VITALS: BP 143/76; PULSE 74; RESP 20; TEMP 36.5; O2SAT 96
--- NOTE | 2021-01-05 08:13 | XR_ITS ---
PROCEDURE: XR CHEST PORTABLE CLINICAL HISTORY: SOA COMPARISON: CR XR CHEST PORTABLE from 01/01/2021 CR XR CHEST AP from 01/02/2021 CR XR CHEST PORTABLE from 01/03/[address] CHEST WO CON from 01/04/2021 FINDINGS: Mild cardiomegaly without failure. Left sub pulmonic effusion with left basilar volume loss. Loculated effusion noted in the left midlung. Slight increased atelectasis in the left perihilar region. Patchy density noted in the right perihilar region which may be due to soft tissue attenuation. Patient's arm is down by either side on the right. MediPort catheter is present from the right subclavian approach with tip in the region the SVC. No evidence of pneumothorax. Postsurgical versus old fracture changes of the right distal clavicle IMPRESSION: No change left-sided sub pulmonic effusion with loculated effusion in the left midlung. There are atelectatic changes in the left mid and lower lung zone slightly increased in the midlung area Dictated by: Carlos Starks MD 01/05/2021 09:15 Carlos Starks MD in [facility] 01/05/2021 09:15
--- NOTE | 2021-01-05 09:14 | HMH.ACPN2 ---
Internal Medicine - PN: Subj *Date: 01/05/21 *Time: 20:15 Interval history: 75-year-old female patient resting quietly in bed with eyes closed, awakens to verbal stimuli. Patient is very disoriented this morning does not recognize staff or own name. She can follow simple commands, no facial droop or focal weakness. Oxygen saturation is 93% on 3 L per nasal cannula. Exam Vital signs and Labs for Last 24 Hours: Temp Pulse Resp BP Pulse Ox 97.7 F 74 20 143/76 H 96 01/05/21 08:00 01/05/21 08:00 01/05/21 08:00 01/05/21 08:00 01/05/21 08:00 Laboratory Results - last 24 hr 01/04/21 05:50: Total Bilirubin 0.4, Direct Bilirubin 0.0, Conjugated Bilirubin 0.0, Indirect Bilirubin 0.4, Unconjugated Bilirubin 0.3, AST 23, ALT 9 L, Alkaline Phosphatase 76, C-Reactive Protein 21.1 H, Total Protein 6.4, Albumin 3.2 L, Procalcitonin 0.406 01/04/21 08:00: Urine Color Yellow, Urine Appearance Clear, Urine pH 5.0, Ur Specific [place] 1.020, Urine Protein Trace, Urine Glucose (UA) Negative, Urine Ketones Trace, Urine Blood 1+, Urine Nitrate Negative, Urine Bilirubin Negative, Urine Urobilinogen 0.2, Ur Leukocyte Esterase Negative, Urine RBC 5-10, Urine WBC 3-5, Ur Squamous Epith Cells 3-5, Urine Bacteria None 01/04/21 09:29: Specimen Source L radial, O2 % 3lpm, ABG pH 7.40, ABG pCO2 40.4, ABG pO2 74.6 L, ABG HCO3 24.4, ABG Total CO2 25.6, ABG O2 Saturation 95, ABG Base Excess -0.4, Carlos Test Acceptable 01/04/21 : CSF Volume 10, CSF Appearance Clear, CSF WBC 3, CSF RBC 181, CSF Mononuclear WBCs % 0, CSF Polynuclear WBCs % 1 01/04/21 : CSF Glucose 74 H, CSF Total Protein 52.0 01/05/21 06:30: WBC 6.3 D, RBC 3.33 L, Hgb 9.7 L, Hct 29.2 L, MCV 87.7, MCH 29.0, MCHC 33.1, RDW 13.0, Plt Count 301, MPV 7.6, Neut % (Auto) 88.9 H, Lymph % (Auto) 5.7 L, [place] % (Auto) 5.3, Eos % (Auto) 0.0 L, Baso % (Auto) 0.2, Neut # (Auto) 5.6, Lymph # (Auto) 0.4 L, [place] # (Auto) 0.3, Eos # (Auto) 0.0, Baso # (Auto) 0.0, Total Counted 100, Neutrophils % (Manual) 90 H, Lymphocytes % (Manual) 7 L, Monocytes % (Manual) 3, Platelet Estimate Normal, Hypochromasia 1+, Anisocytosis 1+ 01/05/21 06:30: Sodium 140, Potassium 4.0, Chloride 103, Carbon Dioxide 28, Anion Gap 13.0, BUN 47 H, Creatinine 2.10 H, Estimated Creat Clear 32, Estimated GFR 23 L, Est GFR ( Amer) 28 L, Glucose 127 H, Calcium 7.9 L I & O for Last 24 hours: Intake & Output 01/02/21 01/03/21 01/04/21 01/05/21 23:59 23:59 23:59 23:59 Intake Total 940 / 940 840 / 840 560 / 800 240 / 240 Balance 940 / 940 840 / 840 560 / 800 240 / 240 Weight 190 lb 190 lb 188 lb 12.8 oz 185 lb 10.067 oz Microbiology Reports for the Last 24 Hours: Microbiology 12/31/20 18:30 Thoracic Fluid Gram Stain - Final 12/31/20 18:30 Thoracic Fluid Body Fluid Culture - Preliminary NO GROWTH AFTER 4 DAYS 01/04/21 Unknown Cerebral Spinal Fluid Gram Stain - Final - Constitutional mild distress, cooperative - *Routine HEENT Exam Head: Present: normocephalic Eye: Present: EOMI ENT: Present: mucous membranes moist - *Routine Neck Exam Present: trachea midline. Absent: tracheal deviation - *Routine Respiratory Exam Present: decreased breath sounds. Absent: accessory muscle use - *Routine Cardiovascular Exam Present: RRR - *Routine Abdominal Exam Present: soft, normoactive bowel sounds. Absent: tenderness, firm - *Routine Extremities Exam Present: full ROM, pulses intact. Absent: cyanosis, clubbing, edema - *Routine Skin Exam Present: intact, dry, warm. Absent: cyanosis, erythema - *Routine Neurological Exam Present: alert, altered mental status. Absent: oriented X3 - Routine Psychiatric Exam Present: unable to assess Assessment and Plan (1) Pleural effusion Status: Acute Category: Medical Code(s): J90 - Pleural effusion, not elsewhere classified (2) ANDRIA (acute kidney injury) Status: Acute Category: Medical Code(s): N17.9 - Acute kidney failure
--- NOTE | 2021-01-05 09:22 | CT_ITS ---
PROCEDURE: CT HEAD/BRAIN WO CON CLINICAL INDICATION: Change in LOC Worsening altered mental status COMPARISON: CT CT CHEST WO CON from 12/31/[address] HEAD/BRAIN WO CON from 01/04/2021 CR XR CHEST PORTABLE from 01/05/2021 TECHNIQUE: Axial images obtained. All CT scans at the facility use one or more dose reduction, viz: automated exposure control, ma/kV adjustment per patient size (including targeted exams where dose is matched to indication, i.e. head), or iterative reconstruction technique. FINDINGS: No midline shift, mass effect, intracranial hemorrhage, hydrocephalus, or extra-axial fluid collection is evident. There is generalized atrophy with hypoattenuation of the periventricular white matter consistent with microangiopathic changes. The calvarium has an unremarkable appearance. No mastoid effusion. No sinus air-fluid level. IMPRESSION: No change with no acute finding Dictated by: Carlos Starks MD 01/05/2021 10:16 Carlos Starks MD in [facility] 01/05/2021 10:16
[2021-01-05 09:53] LABS: ABG Base Excess -2.5 mmol/L (-2.4-2.3); ABG HCO3 22.8 mmhg (22.0-26.0); ABG Oxygen Saturation 96 % (90-100); ABG PCO2 39.9 mmhg (35.0-45.0); ABG PH 7.37 mmol/L (7.35-7.45); ABG PO2 81.3 mmhg (80-100)
[2021-01-05 09:54] LABS: Allen's Test Patient Unable; Oxygen 3 %; Source Right Radial
[2021-01-05 11:30] LABS: Ammonia < 9 umol/L (9-30)
--- NOTE | 2021-01-05 11:41 | HMH.PULMPN ---
Internal Medicine - PN: Subj *Date: 01/05/21 *Time: 11:41 Interval history: No acute respiratory events overnight. Patient mentation worsened from yesterday. Exam - Constitutional Constitutional:: Present: no acute distress, comfortable - HENMT Exam HENMT: Present: normocephalic, atraumatic - Eye Exam Eyes:: Present: normal appearance both eyes and related structures - Neck Exam Neck:: Present: normal visual inspection - Respiratory Exam Respiratory:: Present: able to speak in complete sentences, no respiratory distress, decreased breath sounds, crackles - Cardiovascular Exam Cardiac:: Present: S1, S2 - GI Exam GI:: Present: soft - Skin Exam Skin: Present: warm, no rash - Neurological Exam Neurological: Present: alert, awake. Absent: normal cognition, oriented X3 - Extremities Exam Extremities: Present: no cyanosis, no clubbing Assessment and Plan (1) Pleural effusion Status: Acute Category: Medical Code(s): J90 - Pleural effusion, not elsewhere classified (2) ANDRIA (acute kidney injury) Status: Acute Category: Medical Code(s): N17.9 - Acute kidney failure, unspecified (3) COPD (chronic obstructive pulmonary disease) Status: Acute Qualifiers: COPD type: unspecified COPD Qualified Code(s): J44.9 - Chronic obstructive pulmonary disease, unspecified Category: Medical Code(s): J44.9 - Chronic obstructive pulmonary disease, unspecified (4) History of MRSA infection of lungs Status: Acute Category: Medical Code(s): Z86.14 - Personal history of Methicillin resistant Staphylococcus aureus infection (5) Obesity (BMI 30.0-34.9) Status: Acute Category: Medical Code(s): E66.9 - Obesity, unspecified - Assessment and plan all Dx Assessment and Plan for all problems:: #Acute on chronic hypoxic respiratory failure: #Left-sided Exudative effusion: 75 Y/O with history of bronchiectasis, MRSA and Pseudomonas pneumonia recently discharged with 14 days of levofloxacin presented to the hospital again with worsening respiratory failure and worsening left-sided pleural effusion. Patient chest from recent admission showed right lower lobe pulmonary made along with new left-sided pleural effusion at that time that is progressively getting worse. Thoracentesis performed over the weekend with removal of 300 cc and were sent for analysis, pleural fluid appeared to be exudative. Pleural fluid glucose 64. Gram stain & culture negative so far. Echocardiogram from 11/2020 showed LV diastolic dysfunction. RVSP estimated at 41. Bilateral lower extremity edema noted. Most recent sputum culture grew Carbapenem resistant Klebsiella and Pseudomonas Repeat ultrasound did not show any obvious fluid pocket, CT scan from admission reviewed, patient has predominant left lower lobe atelectasis along with rim of pleural fluid around it along with a loculated pocket. Patient left-sided effusion was not seen in her chest x-rays from October however noted in her chest x-rays from November. Attempted pigtail catheter with no success. We will proceed with chest tube placement. Appreciate surgery's input. CSF dialysis so far, no evidence of meningitis. Creatinine stable however BUN increasing that might be contributing to her altered mentation. Plan: -Discontinue vancomycin, continue cefepime -Chest tube placement: Initiate TPA dornase for her loculated pleural effusion -Chest percussion therapy Q12 hrs and Incentive spirometry Q2 hrs -DuoNebs every 6 hours scheduled along with budesonide every 12 schedule #Thank you for involving pulmonary in this patient care. We will continue to follow.
--- NOTE | 2021-01-05 12:44 | CT_ITS ---
PROCEDURE: CT CHEST WO CON CLINICAL INDICATION: Chest tube placement Evaluate large-bore chest tube placement COMPARISON: CT CT CHEST WO CON from 01/03/[address] CHEST WO CON from 01/04/2021 TECHNIQUE: Axial images obtained with sagittal and coronal reformats. All CT scans at the facility use one or more dose reduction, viz: automated exposure control, ma/kV adjustment per patient size (including targeted exams where dose is matched to indication, i.e. head), or iterative reconstruction technique. FINDINGS: There has been interval insertion of a large-bore chest tube in the left 7th interspace laterally. The chest tube extends posteriorly with the tip along the posterior hemithorax on the left. The tube appears to be in good position in the pleural space. There has been slight decrease in size in the left pleural effusion posteriorly and in the major fissure is well. Loculated component of the fusion is once again noted in the posterior hemithorax mid ways. Subcutaneous emphysema is noted on the left with only a small pneumothorax in the left lung base laterally. Mild left basilar atelectasis once again noted No other changes are evident. There is stranding of the perinephric renal fat on both sides. Degenerative changes are present in the thoracic spine with a stimulator device present IMPRESSION: Interval insertion of left chest tube in good position posteriorly with slight decrease in size in the left pleural effusion with persistent left basilar atelectasis and a small amount of subcutaneous air and minimal pneumothorax in the left lung base Dictated by: Carlos Starks MD 01/05/2021 13:49 Carlos Starks MD in [place] 01/05/2021 13:49
--- NOTE | 2021-01-05 12:45 | HMH.OPNOTE ---
Date of procedure: 01/05/21 Pre-op Diagnosis:: Loculated left pleural effusion Post-op Diagnosis:: Same Procedure performed:: Thoracostomy tube placement (28 Bangladeshi) Surgeon:: Keagan Calderon MD Anesthesia: local Estimated blood loss (mL): 5 Operative findings:: Significant pleural thickening Operative note:: After informed consent was obtained the patient was maintained in a supine position. Her left lateral chest was prepped and draped. After infiltration with local anesthetic a transverse incision was made along the anterior axillary line below the eighth interspace. The deep subcutaneous tissue was bluntly dissected up and over the rib margin. Palpation revealed significant pleural thickening. The chest tube was placed in position with attempts to guide posteriorly. The chest tube was anchored at 15 cm with 0 Nurolon. Dressings were applied. A tube was maintained to suction on Pleur-evac. Condition: stable Disposition: no change Complications:: No immediate
[2021-01-05 13:48] VITALS: PULSE 86; PULSE 89
[2021-01-05 16:00] VITALS: BP 144/62; PULSE 98; RESP 20; TEMP 36.8; O2SAT 96
[2021-01-05 17:56] VITALS: PULSE 104; PULSE 107; O2SAT 96
--- NOTE | 2021-01-05 18:03 | PC.NURSE ---
CPT not performed due to catheter in left chest and having issues with breathing.
[2021-01-05 20:00] VITALS: BP 142/72; PULSE 78; RESP 18; TEMP 36.9; O2SAT 96
[2021-01-06 04:00] VITALS: BP 136/64; PULSE 80; RESP 19; TEMP 36.8; O2SAT 96
[2021-01-06 05:00] VITALS: BMI 31.4
[2021-01-06 06:17] VITALS: PULSE 77; PULSE 78; O2SAT 93
[2021-01-06 06:29] LABS: Basophils % 0.1 % (0.1-2.0); Eosinophils % 0.1 % (0.1-12.0); Hematocrit 26.6 % (37.0-47.0); Lymphocytes # 0.4 K/mm3 (0.7-4.5); Lymphocytes % 6.1 % (10-50); Mean Corpuscular HGB Conc 32.8 g/dL (31.8-35.4); Mean Corpuscular Hemoglobin 29.1 pg (27.0-31.2); Mean Corpuscular Volume 88.6 fl (81-99); Mean Platelet Volume 7.2 fl (7.4-10.4); Monocytes # 0.4 K/mm3 (0.1-1.0); Monocytes % 6.4 % (1.7-9.3); Neutrophils # 5.7 K/mm3 (1.8-7.8); Neutrophils % 87.3 % (37.0-80.0); Platelet Count 285 K/mm3 (142-424); Red Blood Count 3.01 M/mm3 (4.20-5.40); Red Cell Distribution Width 12.9 % (11.5-17.5); White Blood Count 6.5 K/mm3 (4.8-10.8)
[2021-01-06 06:31] LABS: MANUAL DIFFERENTIAL MANUAL DIFFERENTIAL (MANUAL DIFF)
[2021-01-06 06:34] LABS: Hemoglobin 8.8 g/dL (12.2-16.2)
--- NOTE | 2021-01-06 06:44 | PC.NURSE ---
no crepitous noted.
[2021-01-06 06:47] LABS: Chloride 103 mmol/L (98-107); Potassium 3.9 mmoL/L (3.5-5.1); Sodium 139 mmol/L (136-145)
[2021-01-06 06:50] LABS: Blood Urea Nitrogen 56 mg/dl (7-17); Creatinine Clearance Estimated 32 mL/min (50-200); Estimated Glomerular Filt Rate 23 ml/min (>60); GFR (African American) 28 ML/MIN (>60)
[2021-01-06 06:51] LABS: Anion Gap 12.9 mEq/L (5-15); Calcium 7.4 mg/dl (8.4-10.2); Carbon Dioxide 27 mmol/L (22.0-30.0); Glucose 133 mg/dl (74-100)
--- NOTE | 2021-01-06 06:52 | PC.NURSE ---
Patient is alert to name, and place. She has rested well this shift. Patient has had no acute changes this shift. chest tube dressing is intact, clean and no new drainage since beginning of shift. 320ml was noted to be in the drainage system at beginning of the shift. 170ml noted after medication installation. Vitals are stable, call light within reach, will continue to monitor.
[2021-01-06 07:42] LABS: Lymphocytes % 9 % (10-50); Monocytes % 4 % (2-9); Neutrophils % 87 % (42-76); Platelet Estimate Normal; RBC Morphology Normal; Total Cells Counted 100
[2021-01-06 08:00] VITALS: BP 96/51; PULSE 92; RESP 21; TEMP 36.6; O2SAT 99
--- NOTE | 2021-01-06 09:08 | XR_ITS ---
PROCEDURE: XR CHEST PORTABLE CLINICAL HISTORY: pnm Pneumonia, pleural effusion COMPARISON: CR XR CHEST AP from 01/02/2021 CR XR CHEST PORTABLE from 01/03/2021 CR XR CHEST PORTABLE from 01/05/[address] CHEST WO CON from 01/05/2021 FINDINGS: Left-sided chest tube is in place. No evidence of pneumothorax. The left pleural effusion does appear smaller in the lung base. There remains some fluid in the major fissure on the left. There is improved aeration in the left lower lobe. MediPort catheter remains in place IMPRESSION: Interval insertion of left chest tube with decrease in size in left basilar effusion. Improved aeration in the left lower lobe. Effusion remains in the left major fissure with a small effusion in the left lung base. Dictated by: Carlos Starks MD 01/06/2021 12:05 Carlos Starks MD in [facility] 01/06/2021 12:05
--- NOTE | 2021-01-06 14:12 | HMH.PULMPN ---
Internal Medicine - PN: Subj *Date: 01/06/21 *Time: 14:12 Interval history: No acute respiratory vents overnight. Exam - Constitutional Constitutional:: Present: no acute distress, comfortable - HENMT Exam HENMT: Present: normocephalic, atraumatic - Eye Exam Eyes:: Present: normal appearance both eyes and related structures - Neck Exam Neck:: Present: normal visual inspection - Respiratory Exam Respiratory:: Present: able to speak in complete sentences, no respiratory distress, decreased breath sounds, crackles - Cardiovascular Exam Cardiac:: Present: S1, S2 - GI Exam GI:: Present: soft - Skin Exam Skin: Present: warm, no rash - Neurological Exam Neurological: Present: awake. Absent: alert, normal cognition - Extremities Exam Extremities: Present: no cyanosis, no clubbing Assessment and Plan (1) Pleural effusion Status: Acute Category: Medical Code(s): J90 - Pleural effusion, not elsewhere classified (2) ANDRIA (acute kidney injury) Status: Acute Category: Medical Code(s): N17.9 - Acute kidney failure, unspecified (3) COPD (chronic obstructive pulmonary disease) Status: Acute Qualifiers: COPD type: unspecified COPD Qualified Code(s): J44.9 - Chronic obstructive pulmonary disease, unspecified Category: Medical Code(s): J44.9 - Chronic obstructive pulmonary disease, unspecified (4) History of MRSA infection of lungs Status: Acute Category: Medical Code(s): Z86.14 - Personal history of Methicillin resistant Staphylococcus aureus infection (5) Obesity (BMI 30.0-34.9) Status: Acute Category: Medical Code(s): E66.9 - Obesity, unspecified - Assessment and plan all Dx Assessment and Plan for all problems:: #Acute on chronic hypoxic respiratory failure: #Left-sided Exudative effusion: 75 Y/O with history of bronchiectasis, MRSA and Pseudomonas pneumonia recently discharged with 14 days of levofloxacin presented to the hospital again with worsening respiratory failure and worsening left-sided pleural effusion. Patient chest from recent admission showed right lower lobe pulmonary made along with new left-sided pleural effusion at that time that is progressively getting worse. Thoracentesis performed on admission with removal of 300 cc and were sent for analysis, pleural fluid appeared to be exudative. Pleural fluid glucose 64. Gram stain & culture negative so far. Echocardiogram from 11/2020 showed LV diastolic dysfunction. RVSP estimated at 41. Bilateral lower extremity edema noted. Most recent sputum culture grew Carbapenem resistant Klebsiella and Pseudomonas CSF dialysis so far, no evidence of meningitis. Creatinine stable however BUN increasing that might be contributing to her altered mentation. Given loculated pleural effusion surgery was consulted and patient a lot better chest tube placed and was receiving TPA dornase through the chest repeat repeat chest x-ray improved aeration with slight improvement in her effusion. Chest tube output blood-tinged output so far 1000 cc since yesterday. Mild drop in hemoglobin to 8.8. We will closely monitor. Creatinine plateaued but BUN continues to increase along with declining urine output. Plan: -Continue [id number] days -Chest tube to 20 H2o suciton continuous and Continue TPA dornase for her loculated pleural effusion -Chest percussion therapy Q12 hrs and Incentive spirometry Q2 hrs -DuoNebs every 6 hours scheduled along with budesonide every 12 schedule #Thank you for involving pulmonary in this patient care. We will continue to follow.
[2021-01-06 15:57] LABS: Erythrocyte Sedimentation Rate 92 mm/hr (0-30)
[2021-01-06 16:00] VITALS: BP 131/100; PULSE 102; RESP 20; TEMP 36.4; O2SAT 99
--- NOTE | 2021-01-06 17:10 | HMH.DCSUM ---
General - General Admission date:: 12/31/20 Discharge date: 01/06/21 HPI HPI: this pt with sob and was seen in the [facility] ambulance from [facility]. Patient says that for the past 2 to 3 days she has a pain in the left side of her chest. She has nausea. She says that she has shortness of breath, cannot get a deep breath. Denies fever. She does have a cough with small amounts of white to yellow sputum. Nausea and dry heaves, but no vomiting. States that she had this pain 2 to 3 weeks ago when she believes she was told she had pneumonia.pt was also seen by dr hall is a 75-year-old female seen in consultation for possible left thoracentesis. She was evaluated in the emergency department with increasing shortness of air. Chest x-ray followed by chest CT confirmed a left effusion. She states that she has recently been treated for mL of serosanguineous fluid After informed consent was obtained the patient was placed in a seated position. Auscultation was utilized to help jayashree the area of most significant diminished airflow. Her back was prepped and draped in a sterile fashion. After infiltration of local anesthetic a small stab incision was made. The thoracentesis catheter was then placed in position with initial drainage of straw-colored fluid that became somewhat serosanguineous. Slight withdrawal of the pigtail catheter was utilized to maintain flow. After a total of 300 mL were removed, flow through the catheter ceased. As negative pressure was maintained the catheter was carefully removed and a Tegaderm was placed in position. A portion of fluid was obtained for thoracentesis panel. Chest x-ray is pending. pt was admitted for treatment Hospital Course Hospital Course: Laboratory Tests 12/31/20 12/31/20 12/31/20 12:20 12:20 12:20 WBC 7.5 RBC 3.41 L Hgb 10.1 L Hct 30.4 L MCV 89.1 MCH 29.6 MCHC 33.2 RDW 13.5 Plt Count 302 MPV 7.6 Neut % (Auto) 84.6 H Lymph % (Auto) 7.8 L [place] % (Auto) 5.6 Eos % (Auto) 1.7 Baso % (Auto) 0.3 Neut # (Auto) 6.3 Lymph # (Auto) 0.6 L [place] # (Auto) 0.4 Eos # (Auto) 0.1 Baso # (Auto) 0.0 Total Counted Neutrophils % (Manual) Lymphocytes % (Manual) Monocytes % (Manual) Platelet Estimate RBC Morphology Hypochromasia Anisocytosis ESR Specimen Source O2 % ABG pH ABG pCO2 ABG pO2 ABG HCO3 ABG Total CO2 ABG O2 Saturation ABG Base Excess Carlos Test Sodium 137 Potassium 4.1 Chloride 98 Carbon Dioxide 31 H Anion Gap 12.1 BUN 21 H Creatinine 2.00 H Estimated Creat Clear 33 Estimated GFR 24 L Est GFR ( Amer) 30 L Glucose 95 POC Glucose Lactate < 0.5 L Calcium 8.2 L Total Bilirubin 0.7 Direct Bilirubin Conjugated Bilirubin Indirect Bilirubin Unconjugated Bilirubin AST 17 ALT 7 L Alkaline Phosphatase 94 Ammonia Lactate Dehydrogenase Troponin I < 0.01 C-Reactive Protein NT-Pro-B Natriuret Pep Total Protein 6.1 L Albumin 3.1 L Globulin 3.0 Albumin/Globulin Ratio 1.0 L Procalcitonin Urine Color Urine Appearance Urine pH Ur Specific [place] Urine Protein Urine Glucose (UA) Urine Ketones Urine Blood Urine Nitrate Urine Bilirubin Urine Urobilinogen Ur Leukocyte Esterase Urine RBC Urine WBC Ur Squamous Epith Cells Urine Bacteria Fluid Source Fluid Volume Fluid Appearance Fluid RBC (Auto) Fld Tot Nucleated Cell Fld Polynuclear WBCs % Fld Mononuclear WBCs % Fluid Glucose Fluid Total Protein Fluid Albumin Fluid LDH CSF Volume CSF Appearance CSF WBC CSF RBC CSF Mononuclear WBCs % CSF Polynuclear WBCs % CSF Glucose CSF Total Protein Vancomycin Peak Vancomycin Trough SARS-CoV-2 (PCR)
--- NOTE | 2021-01-06 18:07 | PC.NURSE ---
attempted to call report to [facility]. nurse unavailable to take report at this time, asked to call back in 30 min
[2021-01-06 20:00] VITALS: BP 109/63; PULSE 107; RESP 20; TEMP 37.2; O2SAT 99
--- NOTE | 2021-01-06 20:44 | PC.NURSE ---
1650- notified of pt approval for transfer. room [id number] 1654- notified yahir LUCY alford of pt transfer to [facility] 1709- notified Shaneka of transfer, transfer denied d/t no transport vehicle until Saturday-spoke to [employer] case management of [employer]. Told to notify [employer] and/or 1720-[employer] contacted [facility]- emergency transport denied d/t [place] being too far 1857-[employer] contacted 1907- [employer] called back w/ an approx 33 min wait time During this timeline, pt's daughter(Yahir Alford) was refusing air transport d/t out of pocket expenses. Daughter stated she will not be flown if insurance doesnt cover it, or she will stay here until saturday After myself and Miriam Ortega, RN explained that pt needed a higher level of care d/t pleural effusions and needed a cardiothoracic consults. at that time daughter then stated well you all take that chest tube out and i will drive her myself. Myself and Miriam Ortega then repeated how dangerous that would be, daughter eventually verbalized understanding. Daughter was saying all of this while being on hold w/ pt's insurance company. Daughter did find out that pt may have a 4% OOP from [employer] ride, but she was ok with that and we didnt need to put a halt on the [employer] flight anymore .
--- NOTE | 2021-01-06 21:17 | PC.NURSE ---
report given to flight team, patient left floor at 2017.
[2021-01-09 14:31] LABS: pH, Body Fluid 7.5 (Not Estab.)
== END 2021-01-06 20:17 | disposition short-term general hospital (02) | DRG 291 ==
LOC: ER 14:50 → 2ND 15:27
PROVIDERS: Family Medicine; Nurse Practitioner Family; Surgery; Admitting Provider Internal Medicine Adolescent Medicine; Emergency Provider Emergency Medicine; PCP Emergency Medicine; Visit Provider Emergency Medicine
DX: I11.0 Hypertensive heart disease with heart failure (principal); J96.21 Acute and chronic respiratory failure with hypoxia; N17.9 Acute kidney failure, unspecified; I50.9 Heart failure, unspecified; I42.9 Cardiomyopathy, unspecified; Z20.822 Contact with and (suspected) exposure to COVID-19; I48.91 Unspecified atrial fibrillation; E66.9 Obesity, unspecified; Z68.31 Body mass index [BMI] 31.0-31.9, adult; J44.9 Chronic obstructive pulmonary disease, unspecified; Z86.718 Personal history of other venous thrombosis and embolism; Z87.891 Personal history of nicotine dependence; I25.10 Atherosclerotic heart disease of native coronary artery without angina pectoris
CPT/HCPCS: 32551; 32555; 36415; 62270; 70450; 71045; 71250; 80048; 80053; 80076; 80202; 81001; 82042; 82140; 82803; 82945; 82962; 83605; 83615; 83880; 83986; 84145; 84155; 84484; 85007; 85025; 85651; 86140; 87040; 87070; 87205; 89051; 93005; 94640; 94667; 94760; 94761; 96365; 96367; 96375; 96376; 99282; J1642; J2405; J3370; J7639; U0003

== ENCOUNTER 2021-02-16 18:58 | Emergency (ER) | payer MEDICARE, SELFPAY ==
[2021-02-16 18:59] VITALS: BP 158/79; PULSE 109; RESP 24; TEMP 36.5; O2SAT 98; BMI 29.7
--- NOTE | 2021-02-16 19:06 | XR_ITS ---
PROCEDURE INFORMATION: Exam: XR Chest Exam date and time: 02/16/2021 7:06 PM Age: 75 years old Clinical indication: Cough and shortness of breath; Patient HX: Cough, shortness of breath; Additional info: SOA TECHNIQUE: Imaging protocol: XR of the chest. Views: 1 view. COMPARISON: CR XR CHEST PORTABLE 01/06/2021 11:27 AM FINDINGS: Tubes, catheters and devices: Interval removal of left-sided chest tube. Right-sided MediPort appears stable. Lungs: Improved aeration with mild persistent hazy opacity at the left base. Pleural spaces: No pneumothorax. Heart/Mediastinum: No cardiomegaly. Bones/joints: Degenerative changes of the shoulders. IMPRESSION: Improved aeration with mild persistent hazy opacity at the left base which may be on the basis of atelectasis or pneumonia.
--- NOTE | 2021-02-16 19:08 | ECG_ITS ---
APPROVED REPORT Exam: Resting ECG HR:107 bpm ECG Measurements Heart Rate 107 AXES [place] 170 P 15 QRSd 126 QRS 48 QT 384 T 39 QTc 512 Conclusion Sinus tachycardia with premature supraventricular complexes Right bundle branch block Abnormal ECG Electronically signed by : Asad Butcher MD 02/17/2021 19:56:46
--- NOTE | 2021-02-16 19:08 | HMH.EDGENADL ---
ED Disposition Clinical Impression: COPD exacerbation Disposition: Home, Self-Care Condition on Discharge: Fair Instructions: DI for Chronic Obstructive Pulmonary Disease Additional Instructions: Start dexamethasone 10 mg/day for 5 days. Stop hydrocortisone while on dexamethasone, then resume hydrocortisone when dexamethasone is completed. Levaquin 500 mg a day for 7 days. Incentive spirometry every 4 hours. Follow-up with Dr. Hanson for further care. Prescriptions: dexAMETHasone [Decadron] 10 mg PO DAILY #13 tab Prescription Printed levoFLOXacin [Levaquin 500mg tab] 500 mg PO DAILY #6 tab Prescription Printed Referrals: Provider,Referral, [Referring] - - Critical Care Critical Care Time: No Attestation: On 02/16/21, the high probability of a clinically significant, sudden or life threatening deterioration of the following system(s) required my full and direct attention, intervention and personal management. The time I documented below is in addition to time spent performing reported procedures but includes the following listed in this critical care notation. Medical Decision Making - Medical Records Medical records reviewed: Yes: I reviewed the patient's medical records. MR Comment: The patient was admitted to [facility] 12/31/2020 through 01/06/2021 and then transferred to [facility]. She was admitted for a left pleural effusion. She underwent thoracentesis and tube thoracostomy. She developed altered mental status in the hospital. - Julius Inquiry Pt receiving controlled substance: No Vital Signs: 02/16/21 18:59 Temperature 97.7 F Temperature Source Oral Pulse Rate [Right] 109 H Respiratory Rate 24 Blood Pressure [Right Arm] 158/79 H Blood Pressure Mean [Right Arm] 105 02 Sat by Pulse Oximetry 98 Oxygen Delivery Method Nasal Cannula Oxygen Flow Rate (LPM) 3 - Lab Data Lab Results 02/16/21 19:10: WBC 7.2, RBC 3.37 L, Hgb 10.4 L, Hct 33.7 L, MCV 100.1 H, MCH 30.7, MCHC 30.7 L, RDW 15.0, Plt Count 205, MPV 8.5, Neut % (Auto) 73.2, Lymph % (Auto) 19.0, [place] % (Auto) 4.0, Eos % (Auto) 3.3, Baso % (Auto) 0.6, Neut # (Auto) 5.2, Lymph # (Auto) 1.4, [place] # (Auto) 0.3, Eos # (Auto) 0.2, Baso # (Auto) 0.0 02/16/21 19:10: Sodium 142, Potassium 3.6, Chloride 115 H, Carbon Dioxide 19 L, Anion Gap 11.6, BUN 19 H, Creatinine 1.10 H, Estimated Creat Clear 58, Estimated GFR 49 L, Est GFR ( Amer) 59, Glucose 87, Calcium 8.2 L, Total Bilirubin 0.2, AST 14, ALT 10 L, Alkaline Phosphatase 78, Troponin I < 0.01, Total Protein 6.0 L, Albumin 3.2 L, Globulin 2.8, Albumin/Globulin Ratio 1.1 02/16/21 19:10: Lactate < 0.5 L 02/16/21 19:10: NT-Pro-B Natriuret Pep 613 H 02/16/21 19:46: SARS-CoV-2 (PCR) Not detected, Influenza A Untype (PCR) Not detected, Influenza Type B (PCR) Not detected Result diagrams: 02/16/21 19:10 02/16/21 19:10 Orders (Tests/Meds): ED MEDICATIONS Discontinued Medications Generic Name Dose Route Start Last Admin Trade Name Freq PRN Reason Stop Dose Admin Albuterol/Ipratropium 3 ml 02/16/21 20:26 Ipratropium/Albuterol 3 Ml Neb IH 02/16/21 20:27 ONCE ONE Methylprednisolone Sodium Succinate 125 mg 02/16/21 20:26 Methylprednisolone Sod Succ 125mg Vial IV 02/16/21 20:27 ONCE ONE ORDERS Category Date Time Status Troponin I Q3H Lab 02/16/21 22:15 Ordered Troponin I Q3H Lab 02/17/21 01:15 Ordered Blood Culture Stat Micro 02/16/21 19:10 Received - Radiology Data #1 Image(s): Chest Image Reviewed: Yes I have reviewed radiologist's interpretation PROCEDURE INFORMATION: Exam: XR Chest Exam date and time: 02/16/2021 7:06 PM Age: 75 years old Clinical indication: Cough and shortness of breath; Patient HX: Cough, shortness of breath; Additional info: SOA TECHNIQUE: Imaging protocol: XR of the chest. Views: 1 view. COMPARISON: CR XR CHEST PORTABLE 01/06/2021 11:27 AM FINDINGS: Tubes, catheters
[2021-02-16 19:28] LABS: Basophils % 0.6 % (0.1-2.0); Eosinophils # 0.2 K/mm3 (0.0-0.4); Eosinophils % 3.3 % (0.1-12.0); Hematocrit 33.7 % (37.0-47.0); Hemoglobin 10.4 g/dL (12.2-16.2); Lymphocytes # 1.4 K/mm3 (0.7-4.5); Mean Corpuscular HGB Conc 30.7 g/dL (31.8-35.4); Mean Corpuscular Hemoglobin 30.7 pg (27.0-31.2); Mean Corpuscular Volume 100.1 fl (81-99); Mean Platelet Volume 8.5 fl (7.4-10.4); Monocytes # 0.3 K/mm3 (0.1-1.0); Neutrophils # 5.2 K/mm3 (1.8-7.8); Neutrophils % 73.2 % (37.0-80.0); Platelet Count 205 K/mm3 (142-424); Red Blood Count 3.37 M/mm3 (4.20-5.40); White Blood Count 7.2 K/mm3 (4.8-10.8)
[2021-02-16 19:33] LABS: Alanine Aminotransferase 10 U/L (12-78); Albumin Level 3.2 g/dl (3.5-5.0); Albumin/Globulin Ratio 1.1 (1.1-1.8); Alkaline Phosphatase 78 U/L (38-126); Anion Gap 11.6 mEq/L (5-15); Aspartate Amino Transferase 14 U/L (14-36); Bilirubin,Total 0.2 mg/dl (0.2-1.3); Blood Urea Nitrogen 19 mg/dl (7-17); Calcium 8.2 mg/dl (8.4-10.2); Carbon Dioxide 19 mmol/L (22.0-30.0); Chloride 115 mmol/L (98-107); Creatinine Clearance Estimated 58 mL/min (50-200); Estimated Glomerular Filt Rate 49 ml/min (>60); GFR (African American) 59 ML/MIN (>60); Globulin 2.8 g/dL (1.3-3.2); Glucose 87 mg/dl (74-100); Potassium 3.6 mmoL/L (3.5-5.1); Sodium 142 mmol/L (136-145)
[2021-02-16 19:51] LABS: Coronavirus 19, PCR Not Detected (NotDetected); Influenza A, PCR Not Detected (NotDetected); Influenza B, PCR Not Detected (NotDetected)
[2021-02-16 19:52] LABS: Troponin I < 0.01 ng/ml (0.00-0.034)
[2021-02-16 19:53] LABS: Lactic Acid < 0.5 mmol/L (0.7-2.1)
[2021-02-16 20:00] LABS: NT Pro Brain Natriuretic Pep. 613 pg/mL (0-125)
[2021-02-16 21:49] VITALS: PULSE 101; PULSE 103
--- NOTE | 2021-02-16 21:55 | PC.NURSE ---
called [facility] for pt transport back to [facility].
[2021-02-16 22:27] VITALS: BP 154/72; PULSE 102; RESP 23; TEMP 36.9; O2SAT 99
[2021-02-16 22:31] VITALS: BP 120/74; PULSE 103; RESP 20; TEMP 36.5; O2SAT 99
== END 2021-02-16 22:37 | disposition home or self-care (01) ==
PROVIDERS: Emergency Provider Emergency Medicine; PCP Emergency Medicine
DX: J44.1 Chronic obstructive pulmonary disease with (acute) exacerbation (principal); I48.0 Paroxysmal atrial fibrillation; E78.5 Hyperlipidemia, unspecified; I10 Essential (primary) hypertension; I25.10 Atherosclerotic heart disease of native coronary artery without angina pectoris; K21.9 Gastro-esophageal reflux disease without esophagitis; Z99.81 Dependence on supplemental oxygen; Z88.2 Allergy status to sulfonamides; Z79.899 Other long term (current) drug therapy
CPT/HCPCS: 71045; 80053; 83605; 83880; 84484; 85025; 87040; 87102; 87206; 93005; 96365; 96375; 99284; C9803; J1642; J1956; U0003; U0005

== ENCOUNTER 2021-02-27 11:11 | Inpatient (IN) | payer MEDICARE, SELFPAY ==
[2021-02-27] VITALS (14 sets, daily range): BP systolic 109–153; BP diastolic 57–86; PULSE 54–107; RESP 18–31; TEMP 36.6–37.1; O2SAT 84–100; BMI 35.4; BMI 31.0
--- NOTE | 2021-02-27 11:18 | XR_ITS ---
PROCEDURE: XR CHEST PORTABLE CLINICAL HISTORY: cough COMPARISON: CR XR CHEST PORTABLE from 01/05/[address] CHEST WO CON from 01/05/2021 CR XR CHEST PORTABLE from 01/06/2021 CR XR CHEST PORTABLE from 02/16/2021 FINDINGS: Borderline cardiomegaly without failure. Right subclavian Port-A-Cath is in place with the tip in the region of the SVC. There is mild patient rotation toward the left and there is mild thoracic curvature convex right. There has been further improvement in the left lower lobe pneumonia/atelectatic changes. There is some minimal mid lung atelectasis on the left Degenerative changes of the shoulders with suspected prior osteotomy of the right clavicle distally IMPRESSION: Persistent but improving left lower lobe consolidation/atelectatic change Dictated by: Carlos Starks MD 02/27/2021 12:07 Carlos Starks MD in [place] 02/27/2021 12:07
--- NOTE | 2021-02-27 11:30 | ECG_ITS ---
APPROVED REPORT Exam: Resting ECG HR:107 bpm ECG Measurements Heart Rate 107 AXES AL 168 P 2 QRSd 118 QRS 33 QT 370 T 18 QTc 493 Conclusion Sinus tachycardia Right bundle branch block Possible Inferior infarct, age undetermined Abnormal ECG Electronically signed by : Asad Butcher MD 02/27/2021 21:19:20
--- NOTE | 2021-02-27 11:32 | PC.NURSE ---
Dr Perez spoke with Jovanna Kaur she is here consulting with Dr Cameron.
--- NOTE | 2021-02-27 11:42 | HMH.EDGENADL ---
ED Disposition Clinical Impression: COPD (chronic obstructive pulmonary disease) with acute bronchitis, Obesity (BMI 30.0-34.9) Congestive heart failure Qualifiers: Heart failure type: systolic Heart failure chronicity: acute on chronic Qualified Code(s): I50.23 - Acute on chronic systolic (congestive) heart failure Disposition: Admitted As Inpatient Condition on Discharge: Fair Referrals: Provider,Referral, MD [Primary Care Provider] - - Critical Care Critical Care Time: No Attestation: On 02/27/21, the high probability of a clinically significant, sudden or life threatening deterioration of the following system(s) required my full and direct attention, intervention and personal management. The time I documented below is in addition to time spent performing reported procedures but includes the following listed in this critical care notation. Medical Decision Making - Medical Records Medical records reviewed: Yes: I reviewed the patient's medical records. - Julius Inquiry Pt receiving controlled substance: No Vital Signs: 02/27/21 11:11 02/27/21 11:16 02/27/21 13:00 Temperature 98.7 F Temperature Source Oral Pulse Rate 107 H 72 Pulse Rate [Left Radial] 84 Respiratory Rate 26 H 25 H Blood Pressure 134/57 L 130/86 Blood Pressure [Right Arm] 134/57 L Blood Pressure Mean 98 98 Blood Pressure Mean [Right Arm] 82 Blood Pressure Source [Right Arm] Automatic Cuff Blood Pressure Position [Right Arm] Sitting 02 Sat by Pulse Oximetry 86 L 95 100 Oxygen Delivery Method Non-Rebreather Oxygen Flow Rate (LPM) 15 - Lab Data Lab Results 02/27/21 11:15: VBG pH 7.30 L, VBG pCO2 43.0, VBG pO2 57.6 H, VBG HCO3 20.6 L, VBG Total CO2 21.9 L, VBG O2 Saturation 87.0 H, VBG Base Excess -5.9 L 02/27/21 11:19: Specimen Source Cancelled, O2 % Cancelled, ABG pH Cancelled, ABG pCO2 Cancelled, ABG pO2 Cancelled, ABG HCO3 Cancelled, ABG Total CO2 Cancelled, ABG O2 Saturation Cancelled, ABG Base Excess Cancelled, Carlos Test Cancelled, Vent Rate Cancelled, Tidal Volume Cancelled, PEEP Cancelled 02/27/21 12:00: WBC 9.8, RBC 3.24 L, Hgb 10.1 L, Hct 31.5 L, MCV 97.3, MCH 31.3 H, MCHC 32.2, RDW 14.6, Plt Count 214, MPV 7.6, Neut % (Auto) 80.6 H, Lymph % (Auto) 11.9, [place] % (Auto) 4.2, Eos % (Auto) 3.0, Baso % (Auto) 0.3, Neut # (Auto) 7.9 H, Lymph # (Auto) 1.2, [place] # (Auto) 0.4, Eos # (Auto) 0.3, Baso # (Auto) 0.0 02/27/21 12:00: Sodium 141, Potassium 3.2 L, Chloride 113 H, Carbon Dioxide 23, Anion Gap 8.2, BUN 20 H, Creatinine 1.00, Estimated Creat Clear 72, Estimated GFR 54 L, Est GFR ( Amer) 66, Glucose 98, Calcium 7.9 L, Total Bilirubin 0.2, AST 14, ALT 11 L, Alkaline Phosphatase 70, Troponin I < 0.01, NT-Pro-B Natriuret Pep 573 H, Total Protein 5.6 L, Albumin 2.9 L, Globulin 2.7, Albumin/Globulin Ratio 1.1 Result diagrams: 02/27/21 12:00 02/27/21 12:00 Orders (Tests/Meds): ED MEDICATIONS Discontinued Medications Generic Name Dose Route Start Last Admin Trade Name Freq PRN Reason Stop Dose Admin Aspirin 325 mg 02/27/21 11:46 02/27/21 13:29 Aspirin 325mg Tablet PO 02/27/21 11:47 325 mg ONCE ONE Administration Furosemide 40 mg 02/27/21 12:46 02/27/21 13:29 Furosemide 40mg/4ml Vial IV 02/27/21 12:47 40 mg ONCE ONE Administration ORDERS Category Date Time Status Consult to Cardiology [CONS] Routine Cons 02/27/21 13:33 Ordered Consult to Pulmonology [CONS] Stat Cons 02/27/21 13:33 Ordered Rapid PCR Covid and Flu A/B Stat Lab 02/27/21 13:00 Received Troponin I Q3H Lab 02/27/21 14:30 Ordered Troponin I Q3H Lab 02/27/21 17:30 Ordered CA echo doppler complete Stat Y 02/27/21 13:34 Ordered - ECG Data Tracing #1 I reviewed this ECG and interpreted as documented below: Tachycardic rate of 107 bpm, SD interval 160 ms, normal QTC. Sinus tachycardia with right bundle branch block, nonspecific changes. ECG initial impression date: 02/27/21 ECG initial impre
[2021-02-27 12:09] LABS: Basophils % 0.3 % (0.1-2.0); Eosinophils # 0.3 K/mm3 (0.0-0.4); Hematocrit 31.5 % (37.0-47.0); Hemoglobin 10.1 g/dL (12.2-16.2); Lymphocytes # 1.2 K/mm3 (0.7-4.5); Lymphocytes % 11.9 % (10-50); Mean Corpuscular HGB Conc 32.2 g/dL (31.8-35.4); Mean Corpuscular Hemoglobin 31.3 pg (27.0-31.2); Mean Corpuscular Volume 97.3 fl (81-99); Mean Platelet Volume 7.6 fl (7.4-10.4); Monocytes # 0.4 K/mm3 (0.1-1.0); Monocytes % 4.2 % (1.7-9.3); Neutrophils # 7.9 K/mm3 (1.8-7.8); Neutrophils % 80.6 % (37.0-80.0); Platelet Count 214 K/mm3 (142-424); Red Blood Count 3.24 M/mm3 (4.20-5.40); Red Cell Distribution Width 14.6 % (11.5-17.5); White Blood Count 9.8 K/mm3 (4.8-10.8)
[2021-02-27 12:24] LABS: Alanine Aminotransferase 11 U/L (12-78); Albumin Level 2.9 g/dl (3.5-5.0); Albumin/Globulin Ratio 1.1 (1.1-1.8); Alkaline Phosphatase 70 U/L (38-126); Anion Gap 8.2 mEq/L (5-15); Aspartate Amino Transferase 14 U/L (14-36); Bilirubin,Total 0.2 mg/dl (0.2-1.3); Blood Urea Nitrogen 20 mg/dl (7-17); Calcium 7.9 mg/dl (8.4-10.2); Carbon Dioxide 23 mmol/L (22.0-30.0); Chloride 113 mmol/L (98-107); Creatinine Clearance Estimated 72 mL/min (50-200); Estimated Glomerular Filt Rate 54 ml/min (>60); GFR (African American) 66 ML/MIN (>60); Globulin 2.7 g/dL (1.3-3.2); Glucose 98 mg/dl (74-100); Potassium 3.2 mmoL/L (3.5-5.1); Sodium 141 mmol/L (136-145); Total Protein,Serum 5.6 g/dl (6.3-8.2)
[2021-02-27 12:36] LABS: NT Pro Brain Natriuretic Pep. 573 pg/mL (0-125)
[2021-02-27 12:39] LABS: Troponin I < 0.01 ng/ml (0.00-0.034)
[2021-02-27 12:57] LABS: VBG Base Excess -5.9 mmol/L (-2.4-2.3); VBG HCO3 20.6 mmol/L (23-30); VBG PO2 57.6 mmol/L (28-40); VBG Total CO2 21.9 mmol/L (23-27)
[2021-02-27 13:11] LABS: Coronavirus 19, PCR Not Detected (NotDetected); Influenza A, PCR Not Detected (NotDetected); Influenza B, PCR Not Detected (NotDetected)
--- NOTE | 2021-02-27 13:31 | PC.NURSE ---
Dr Perez consulting with Dr Hanson
--- NOTE | 2021-02-27 13:34 | CA_ITS ---
APPROVED REPORT EXAM: Comprehensive 2D, Doppler, and color-flow Echocardiogram Bale Piler: Lula Mccoy RDCS Ht: 5 ft 3 in Wt: 200lbs BSA: 1.93 BP: 151/63 mmHg Indications: SOS,CHF,COPD 2D Dimensions LVOT 1.76 cm (M/F) 1.5-2.5 M-Mode Dimensions RVDd 3.66 cm (0.9-2.6) LA Diam 2.96 cm (1.9-4.0) LVDd 3.88 cm (3.5-5.7) Ao Diam 3.50 cm (2.0-3.7) LVDs 2.43 cm (3.5-5.7) IVSd 1.24 cm (0.6-1.1) PWd 1.41 cm (0.6-1.1) EF (Teich) 68.00% FS 37.40% EDV (Teich) 65.10 mL ESV (Teich) 20.80 mL LV Diastology E Decel Time 189.00 (160-240 msec) E/A Ratio 0.6 MED E' 6.30 (< 7 cm/sec) E'/MED E' Ratio 9.78 (>14) LAT E' 7.90 (<10 cm/sec) E/LAT E' Ratio 7.80 (>14) Mitral Valve MV E Max Moreno. 62.00 (40-130 cm/s) MV A Velocity 102.00 (40-130 cm/s) E/A Ratio 0.60 MV Decel. Time 189.00 (160-240 ms) MV PHT 55.00 ms Left Ventricle Left atrium is mildly enlarged, left ventricle is normal size, mild concentric left ventricular hypertrophy visually estimated ejection fraction 55% with no regional wall motion abnormality, endocardial subsequently visualized. Doppler evidence of impaired LV relaxation seen. Right Ventricle Right atrium and right ventricle mildly enlarged with normal contractility. Aortic Valve Aortic valve is minimally thickened and fibrosed, there is no aortic stenosis or aortic insufficiency. Mitral Valve Mitral valve grossly normal, there is trace mitral regurgitation. Tricuspid Valve Tricuspid valve is grossly normal, there is trace tricuspid regurgitation, tricuspid regurgitation jet velocity is inadequate for calculation of the right ventricular systolic pressure. Pulmonic Valve Pulmonic valve is poorly visualized. Great Vessels Aortic root is normal size. Inferior vena cava is not visualized. Pericardium No significant pericardial effusion noted. Conclusion 1. Technically difficult study because of the patient factors and poor acoustic windows. 2. Mild biatrial enlargement, normal left ventricular size, mild concentric left ventricular hypertrophy, visually estimated ejection fraction 55% with no regional wall motion abnormality, Doppler evidence of impaired LV relaxation seen. 3. Mildly enlarged right ventricle with normal contractility. 4. Trace mitral and tricuspid regurgitation. 5. No significant pericardial effusion noted. Electronically signed by : Javed Gibson MD 02/27/2021 21:34:32
--- NOTE | 2021-02-27 13:40 | HMH.CNCARD ---
History of Present Illness Consult date: 02/27/21 Requesting physician: Kameron Perez Consult reason: shortness of breath Chief complaint: SOA History of present illness: This is a 75-year-old white female who presented to the emergency department with difficulty breathing. The patient was sent from the long-term. She states that for approximately 2 weeks she has noticed a worsening in her shortness of breath but it got significantly worse this morning. The patient states that her shortness of breath is associated with bilateral lower extremity edema. She states that her shortness of breath is with minimal exertion and sometimes eating at rest today. It is worse with exertion. Nothing was really helping to improve her symptoms. The patient had oxygen saturations in the 70s on arrival. The patient does have crackles noted bilaterally. She is edematous on exam. She states that she does have a mild cough associated with her shortness of breath. This is nonproductive. She denies any chest pain or pressure. She denies any racing of the heart. She denies any hemoptysis. She denies any fever, chills, nausea, vomiting, diarrhea, PND or orthopnea. The patient is currently on BiPAP secondary to her hypoxia. [facility] History I have reviewed the patient's past medical history: Yes Medical History: Reports:: Anxiety, Arrhythmia, Atrial Fibrillation, Cardiomyopathy, Congestive Heart Failure, Chronic Obstructive Pulmonary Disease (COPD), Congenital Heart Disease, Coronary Artery Disease, Deep Vein Thrombosis, Gastroesophageal Reflux Disease(GERD), Home Oxygen, Hyperlipidemia, Hypertension, MRSA, Myocardial Infarction, Palpitations, Valvular Heart Disease Denies:: Cancer, Diabetes Mellitus Type 1, Diabetes Mellitus Type 2, Internal Pacemaker *Have you ever received a pneumonia vaccine?: No *Have you received a flu vaccine this season?: No Other Medical History: Reports: Anemia, Arthritis, Cataracts, Fibromyalgia, Hypothyroidism, Sinus Problems, Thyroid Disease Laterality Cases: Left: Arthroscopy Hip, Right: Carpal Tunnel Release Other Surgeries: Yes: Appendectomy, Cardiac Catheterization, Cholecystectomy, Colonoscopy, Hysterectomy-Total, Tubal Ligation, Other. No: Pacemaker Amputation: No Fractures: Yes - *Social History Smoking Status: Unknown if ever smoked Tobacco Type: cigarettes # Packs/Day (cigarettes): 0 #Yrs smoked (if former smoker): 40 Alcohol Intake: never Substance Use Type: denies use *Occupational Status:: disabled Housing: long-term Household Members: other *Travel in the last 8 weeks: None - Psychiatric History Pschychiatric History:: Reports:: Anxiety Family Hx:: Unable to obtain Meds Home Medications Medication Instructions Recorded Confirmed Type Pilocarpine HCl [Salagen] 7.5 mg PO TID 05/24/17 02/27/21 History Pantoprazole Sodium [Protonix 40mg 40 mg PO DAILY 10/28/18 02/27/21 History tablet] guaiFENesin [Mucinex] 1,200 mg PO BID 05/25/19 02/27/21 History Acetaminophen 500 mg PO BID 08/12/20 02/27/21 History Albuterol Sulfate [Albuterol 2 puffs IH Q6HP PRN 08/12/20 02/27/21 History Sulfate Hfa] Ferrous Sulfate [Ferrous Sulfate 325 mg PO DAILY 08/12/20 02/27/21 History 325mg Tablet] Hydrocortisone 5 mg PO HS 08/21/20 02/27/21 History Montelukast Sodium [Singulair] 10 mg PO HS 08/21/20 02/27/21 History Atorvastatin Calcium [Lipitor 40mg 40 mg PO HS 10/05/20 02/27/21 History Tablet*] Lactulose [Lactulose 20gm/30ml 20 gm PO DAILYP PRN 10/12/20 02/27/21 History Oral Soln] Loratadine [Allerclear] 10 mg PO DAILY 10/12/20 02/27/21 History Trazodone HCl 100 mg PO HS 10/12/20 02/27/21 History Acetaminophen 500 mg PO Q6HP PRN 12/09/20 02/27/21 History Calcium Carbonate [Tums] 300 mg PO Q6HP PRN 12/09/20 02/27/21 History L.acidoph,Paracasei, B.lactis 1 each PO DAILY 12/09/20 02/27/21 History [Probiotic] Trospium Chloride 20 mg PO DAILY 12/10/20 02/27/21 History guaiFENesin [Robitussin 200mg/10mL 200
--- NOTE | 2021-02-27 14:16 | PC.NURSE ---
Pt assisted to bedside commode
--- NOTE | 2021-02-27 14:48 | PC.NURSE ---
pt arrived to the floor via stretcher
--- NOTE | 2021-02-27 15:13 | HMH.PHAVTE ---
[facility] VTE Monitoring - Patient Demographics Admission date: 02/27/21 Report Date: 02/27/21 Time: 15:13 Allergies/Adverse Reactions: Patient Allergies hydrocodone [HYDROCODONE] Allergy (Severe, Verified 01/11/21 16:08) dizziness, n/v codeine [CODEINE] Allergy (Intermediate, Verified 01/11/21 16:08) dizziness. n/v Sulfa (Sulfonamide Antibiotics) [SULFA (SULFONAMIDE ANTIBIOTICS)] Adverse Reaction (Mild, Verified 01/11/21 16:08) n/v Height: 1.6 m Weight: 90.718 kg Patient Problems: Current Active Problems COPD (chronic obstructive pulmonary disease) with acute bronchitis (Acute) Congestive heart failure (Acute) Acute exacerbation of CHF (congestive heart failure) (Acute) Chronic respiratory failure (Acute) Obesity (BMI 30.0-34.9) (Chronic) COPD (chronic obstructive pulmonary disease) (Chronic) HLD (hyperlipidemia) (Chronic) HHD (hypertensive heart disease) (Chronic) CAD (coronary artery disease) (Chronic) - VTE Risk Labs: VTE Related Lab Results Hgb 10.1 g/dL (12.2-16.2) L 02/27/21 12:00 Hct 31.5 % (37.0-47.0) L 02/27/21 12:00 Plt Count 214 K/mm3 (142-424) 02/27/21 12:00 BUN 20 mg/dl (7-17) H 02/27/21 12:00 Creatinine 1.00 mg/dl (0.52-1.04) 02/27/21 12:00 Estimated Creat Clear 72 mL/min (50-200) 02/27/21 12:00 - Prophylaxis VTE Prophylaxis Ordered?: Yes Types of VTE Prophylaxis: TEDS Knee High, Pharmacological Location of Applied Device: Bilateral Lower Extremeties Pharmacologic Type: Enoxaparin
--- NOTE | 2021-02-27 16:06 | HMH.PHAINT ---
MEDICATION RECONCILIATION COMPLETE USING [facility]
[2021-02-27 17:51] LABS: Troponin I < 0.01 ng/ml (0.00-0.034)
--- NOTE | 2021-02-27 19:00 | PC.NURSE ---
Patient arrived from the ER to room 205. Patient is on telemetry and 3L NC. Patient's O2 sensor would not picking tech except on her right foot. Patient is up with assist times two. Purewick in place. Bed in lowest position. Phone and call light in reach. Will continue to monitor.
[2021-02-27 20:44] LABS: Troponin I < 0.01 ng/ml (0.00-0.034)
--- NOTE | 2021-02-27 22:55 | HMH.HP ---
*Admission Date: 02/27/21 *Chief complaint: sob *History of present illness: pt was sent from [facility] with sob over the last few days - pt has sig past hx of copd - recent pneumonia requiring chest tube and tertiary care center- his is a 75-year-old female presenting to the emergency department with some difficulty breathing. Patient was sent from [facility] with some troubles breathing and low oxygen saturations. When EMS originally got there the patient was having saturations in the 70s. She does have a longstanding history of CAD and CHF. Patient states that her shortness of breath has been gradually worsening over the last 2 weeks or so. States that is mainly on exertion. Today she was having it at rest. She is also had some swelling in the lower extremities bilaterally. Nontender. Patient complains of mild cough. Nonproductive in nature. She is not having any chest pain or palpitations at this time. She denies any hemoptysis. Patient does not have any headache or change in vision. No focal weakness. No fevers or chills. No abdominal pain or vomiting. pt was admitted for eval and treatment [facility] History I have reviewed the patient's past medical history: Yes Medical History: Reports:: Anxiety, Arrhythmia, Atrial Fibrillation, Cardiomyopathy, Congestive Heart Failure, Chronic Obstructive Pulmonary Disease (COPD), Congenital Heart Disease, Coronary Artery Disease, Deep Vein Thrombosis, Gastroesophageal Reflux Disease(GERD), Home Oxygen, Hyperlipidemia, Hypertension, MRSA, Myocardial Infarction, Palpitations, Valvular Heart Disease Denies:: Cancer, Diabetes Mellitus Type 1, Diabetes Mellitus Type 2, Internal Pacemaker *Have you ever received a pneumonia vaccine?: No (Has received in the last five years) *Have you received a flu vaccine this season?: Yes Other Medical History: Reports: Anemia, Arthritis, Cataracts, Fibromyalgia, Hypothyroidism, Sinus Problems, Thyroid Disease Laterality Cases: Left: Arthroscopy Hip, Right: Carpal Tunnel Release Other Surgeries: Yes: Appendectomy, Cardiac Catheterization, Cholecystectomy, Colonoscopy, Hysterectomy-Total, Tubal Ligation, Other. No: Pacemaker Amputation: No Fractures: Yes - *Social History Last grade of school completed: High school graduate Smoking Status: Former smoker Tobacco Type: cigarettes # Packs/Day (cigarettes): 0 #Yrs smoked (if former smoker): 40 Alcohol Intake: never Substance Use Type: denies use *Occupational Status:: retired Housing: [facility] Household Members: other *Travel in the last 8 weeks: None - Psychiatric History Pschychiatric History:: Reports:: Anxiety Family Hx:: No significant family history Review of Systems - Review of Systems Review of systems:: pertinent systems reviewed and negative unless documented below - Constitutional Reports weakness, Denies fever(s) - Eyes Denies change in vision - ENT Denies dizziness - *Cardiovascular Denies chest pain at rest - *Respiratory Reports cough, Reports shortness of breath, Reports wheezing, Denies coughing up blood - *Gastrointestinal Denies abdominal pain - *Genitourinary Denies pelvic pain - *Musculoskeletal Denies joint pain, Denies joint swelling - Integumentary/Breasts Denies rash - *Neurologic Denies headache(s), Denies seizure-like activity - Psychiatric Reports anxiety Meds Home Medications Medication Instructions Recorded Confirmed Type Pilocarpine HCl [Salagen] 7.5 mg PO TID 05/24/17 02/27/21 History Pantoprazole Sodium [Protonix 40mg 40 mg PO DAILY 10/28/18 02/27/21 History tablet] guaiFENesin [Mucinex] 1,200 mg PO BID 05/25/19 02/27/21 History Acetaminophen 500 mg PO BID 08/12/20 02/27/21 History Albuterol Sulfate [Albuterol 2 puffs IH Q6HP PRN 08/12/20 02/27/21 History Sulfate Hfa] Ferrous Sulfate [Ferrous Sulfate 325 mg PO DAILY 08/12/20 02/27/21 History 325mg Tablet] Hydrocortisone 5 mg PO HS 08/21/20 02/27/21 History Montelukast Sodium
[2021-02-28] VITALS (11 sets, daily range): BP systolic 111–136; BP diastolic 54–78; PULSE 68–115; RESP 16–21; TEMP 36.6–37.2; O2SAT 91–100; BMI 31.8
--- NOTE | 2021-02-28 03:10 | PC.NURSE ---
No acute changes t/o shift. Pt refused to wear bipap at night, remains on 3L NC with O2 saturation in high 90's t/o shift. Purewick in place draining clear urine. Pt denies any pain t/o shift. VSS, call light within reach, will continue to monitor.
[2021-02-28 05:48] LABS: Basophils % 0.3 % (0.1-2.0); Eosinophils # 0.3 K/mm3 (0.0-0.4); Eosinophils % 3.7 % (0.1-12.0); Hematocrit 31.1 % (37.0-47.0); Hemoglobin 9.8 g/dL (12.2-16.2); Lymphocytes # 0.9 K/mm3 (0.7-4.5); Lymphocytes % 11.1 % (10-50); Mean Corpuscular HGB Conc 31.6 g/dL (31.8-35.4); Mean Corpuscular Hemoglobin 30.9 pg (27.0-31.2); Mean Corpuscular Volume 97.8 fl (81-99); Mean Platelet Volume 7.8 fl (7.4-10.4); Monocytes # 0.5 K/mm3 (0.1-1.0); Monocytes % 5.7 % (1.7-9.3); Neutrophils # 6.4 K/mm3 (1.8-7.8); Neutrophils % 79.1 % (37.0-80.0); Platelet Count 194 K/mm3 (142-424); Red Blood Count 3.18 M/mm3 (4.20-5.40); Red Cell Distribution Width 14.7 % (11.5-17.5); White Blood Count 8.1 K/mm3 (4.8-10.8)
[2021-02-28 05:57] LABS: Alanine Aminotransferase 9 U/L (12-78); Albumin Level 2.7 g/dl (3.5-5.0); Alkaline Phosphatase 56 U/L (38-126); Anion Gap 8.3 mEq/L (5-15); Aspartate Amino Transferase 13 U/L (14-36); Bilirubin,Total 0.3 mg/dl (0.2-1.3); Blood Urea Nitrogen 17 mg/dl (7-17); Calcium 7.8 mg/dl (8.4-10.2); Carbon Dioxide 25 mmol/L (22.0-30.0); Chloride 109 mmol/L (98-107); Creatinine Clearance Estimated 69 mL/min (50-200); Estimated Glomerular Filt Rate 54 ml/min (>60); GFR (African American) 66 ML/MIN (>60); Globulin 2.6 g/dL (1.3-3.2); Glucose 95 mg/dl (74-100); Potassium 3.3 mmoL/L (3.5-5.1); Sodium 139 mmol/L (136-145); Total Protein,Serum 5.3 g/dl (6.3-8.2)
--- NOTE | 2021-02-28 08:40 | HMH.ACPN2 ---
Internal Medicine - PN: Subj *Date: 02/28/21 *Time: 08:40 Interval history: 75-year-old female patient resting in bed quietly with eyes open, oxygenation 99% on 3 L per nasal cannula. Patient reports she does feel to be confused yesterday cannot explain the reason why she feels worse. Exam Vital signs and Labs for Last 24 Hours: Temp Pulse Resp BP Pulse Ox 98.1 F 112 H 20 121/68 100 02/28/21 08:00 02/28/21 08:00 02/28/21 08:00 02/28/21 08:00 02/28/21 08:00 Laboratory Results - last 24 hr 02/27/21 11:15: VBG pH 7.30 L, VBG pCO2 43.0, VBG pO2 57.6 H, VBG HCO3 20.6 L, VBG Total CO2 21.9 L, VBG O2 Saturation 87.0 H, VBG Base Excess -5.9 L 02/27/21 11:19: Specimen Source Cancelled, O2 % Cancelled, ABG pH Cancelled, ABG pCO2 Cancelled, ABG pO2 Cancelled, ABG HCO3 Cancelled, ABG Total CO2 Cancelled, ABG O2 Saturation Cancelled, ABG Base Excess Cancelled, Carlos Test Cancelled, Vent Rate Cancelled, Tidal Volume Cancelled, PEEP Cancelled 02/27/21 12:00: WBC 9.8, RBC 3.24 L, Hgb 10.1 L, Hct 31.5 L, MCV 97.3, MCH 31.3 H, MCHC 32.2, RDW 14.6, Plt Count 214, MPV 7.6, Neut % (Auto) 80.6 H, Lymph % (Auto) 11.9, [place] % (Auto) 4.2, Eos % (Auto) 3.0, Baso % (Auto) 0.3, Neut # (Auto) 7.9 H, Lymph # (Auto) 1.2, [place] # (Auto) 0.4, Eos # (Auto) 0.3, Baso # (Auto) 0.0 02/27/21 12:00: Sodium 141, Potassium 3.2 L, Chloride 113 H, Carbon Dioxide 23, Anion Gap 8.2, BUN 20 H, Creatinine 1.00, Estimated Creat Clear 72, Estimated GFR 54 L, Est GFR ( Amer) 66, Glucose 98, Calcium 7.9 L, Total Bilirubin 0.2, AST 14, ALT 11 L, Alkaline Phosphatase 70, Troponin I < 0.01, NT-Pro-B Natriuret Pep 573 H, Total Protein 5.6 L, Albumin 2.9 L, Globulin 2.7, Albumin/Globulin Ratio 1.1 02/27/21 13:00: SARS-CoV-2 (PCR) Not detected, Influenza A Untype (PCR) Not detected, Influenza Type B (PCR) Not detected 02/27/21 17:00: Troponin I < 0.01 02/27/21 20:03: Troponin I < 0.01 02/28/21 05:37: WBC 8.1, RBC 3.18 L, Hgb 9.8 L, Hct 31.1 L, MCV 97.8, MCH 30.9, MCHC 31.6 L, RDW 14.7, Plt Count 194, MPV 7.8, Neut % (Auto) 79.1, Lymph % (Auto) 11.1, [place] % (Auto) 5.7, Eos % (Auto) 3.7, Baso % (Auto) 0.3, Neut # (Auto) 6.4, Lymph # (Auto) 0.9, [place] # (Auto) 0.5, Eos # (Auto) 0.3, Baso # (Auto) 0.0 02/28/21 05:37: Sodium 139, Potassium 3.3 L, Chloride 109 H, Carbon Dioxide 25, Anion Gap 8.3, BUN 17, Creatinine 1.00, Estimated Creat Clear 69, Estimated GFR 54 L, Est GFR ( Amer) 66, Glucose 95, Calcium 7.8 L, Total Bilirubin 0.3, AST 13 L, ALT 9 L, Alkaline Phosphatase 56, Total Protein 5.3 L, Albumin 2.7 L, Globulin 2.6, Albumin/Globulin Ratio 1.0 L I & O for Last 24 hours: Intake & Output 02/25/21 02/26/21 02/27/21 02/28/21 23:59 23:59 23:59 23:59 Intake Total 240 / 480 240 / 240 Output Total 300 / 300 Balance -60 / 180 240 / 240 Weight 186 lb 7 oz 191 lb - Constitutional no acute distress - *Routine HEENT Exam Head: Present: normocephalic Eye: Present: EOMI ENT: Present: mucous membranes moist - *Routine Neck Exam Present: trachea midline. Absent: tracheal deviation - *Routine Respiratory Exam Present: wheezes, crackles. Absent: accessory muscle use - *Routine Cardiovascular Exam Present: RRR - *Routine Abdominal Exam Present: soft, normoactive bowel sounds. Absent: tenderness, distended - *Routine Extremities Exam Present: edema, pulses intact. Absent: cyanosis, calf tenderness - *Routine Skin Exam Present: dry, warm. Absent: cyanosis, erythema - *Routine Neurological Exam Present: alert, oriented X3, motor deficit. Absent: altered mental status - Routine Psychiatric Exam Present: normal affect. Absent: auditory hallucinations Assessment and Plan (1) Acute exacerbation of CHF (congestive heart failure) Status: Acute Category: Medical Code(s): I50.9 - Heart failure, unspecified (2) CAD (coronary artery disease) Status: Chronic Qualifiers: Category: Medical Code(s): I25.10 - Atherosclerotic heart disea
--- NOTE | 2021-02-28 08:55 | SW/DCPLANNER ---
Addendum entered by Yudelka Iniguez 03/09/21 09:58: I have informed Jo Ann packer/ [facility] the plan for this patient is to return today. Addendum entered by Yudelka Iniguez 03/08/21 11:36: This patient will return to [facility] today. I have spoke with patients daughter (Beti) and she is agreeable with this plan. COVID swab has been collected:negative/faxed. I have also updated Jo Ann that this patient will return today. Addendum entered by Yudelka Iniguez 03/08/21 09:14: I have updated Jo Ann with [facility]: patient may discharge back later today or tomorrow. Patient will need additional COVID swab. I will continue to follow up with patient and Jo Ann. Original Note: This patient currently resides at [facility]. [facility] and she has stated that patient is [facility] level of care. I will continue to follow up with Jo Ann until patient is medically stable for discharge.
--- NOTE | 2021-02-28 10:36 | HMH.PNCARD ---
Subjective Date: 02/28/21 Time: 10:20 Principal diagnosis: soa Interval history: This is a 75-year-old female presented to the emergency department with complaints of shortness of breath. This was also associated with lower extremity edema. The patient was found to be in respiratory distress and was started on BiPAP. She is now on nasal cannula at 3 L/min. This morning she states that her shortness of breath really is no better than it was when she came into the hospital. She states that she is not having any chest pain or pressure. She denies any racing of the heart. She denies any fever, chills, nausea, vomiting or diarrhea. She does have associated orthopnea with her shortness of breath. Exam Vital signs and Labs for Last 24 Hours: Temp Pulse Resp BP Pulse Ox 98.1 F 112 H 20 121/68 100 02/28/21 08:00 02/28/21 08:00 02/28/21 08:00 02/28/21 08:00 02/28/21 08:00 Laboratory Results - last 24 hr 02/27/21 11:15: VBG pH 7.30 L, VBG pCO2 43.0, VBG pO2 57.6 H, VBG HCO3 20.6 L, VBG Total CO2 21.9 L, VBG O2 Saturation 87.0 H, VBG Base Excess -5.9 L 02/27/21 11:19: Specimen Source Cancelled, O2 % Cancelled, ABG pH Cancelled, ABG pCO2 Cancelled, ABG pO2 Cancelled, ABG HCO3 Cancelled, ABG Total CO2 Cancelled, ABG O2 Saturation Cancelled, ABG Base Excess Cancelled, Carlos Test Cancelled, Vent Rate Cancelled, Tidal Volume Cancelled, PEEP Cancelled 02/27/21 12:00: WBC 9.8, RBC 3.24 L, Hgb 10.1 L, Hct 31.5 L, MCV 97.3, MCH 31.3 H, MCHC 32.2, RDW 14.6, Plt Count 214, MPV 7.6, Neut % (Auto) 80.6 H, Lymph % (Auto) 11.9, [place] % (Auto) 4.2, Eos % (Auto) 3.0, Baso % (Auto) 0.3, Neut # (Auto) 7.9 H, Lymph # (Auto) 1.2, [place] # (Auto) 0.4, Eos # (Auto) 0.3, Baso # (Auto) 0.0 02/27/21 12:00: Sodium 141, Potassium 3.2 L, Chloride 113 H, Carbon Dioxide 23, Anion Gap 8.2, BUN 20 H, Creatinine 1.00, Estimated Creat Clear 72, Estimated GFR 54 L, Est GFR ( Amer) 66, Glucose 98, Calcium 7.9 L, Total Bilirubin 0.2, AST 14, ALT 11 L, Alkaline Phosphatase 70, Troponin I < 0.01, NT-Pro-B Natriuret Pep 573 H, Total Protein 5.6 L, Albumin 2.9 L, Globulin 2.7, Albumin/Globulin Ratio 1.1 02/27/21 13:00: SARS-CoV-2 (PCR) Not detected, Influenza A Untype (PCR) Not detected, Influenza Type B (PCR) Not detected 02/27/21 17:00: Troponin I < 0.01 02/27/21 20:03: Troponin I < 0.01 02/28/21 05:37: WBC 8.1, RBC 3.18 L, Hgb 9.8 L, Hct 31.1 L, MCV 97.8, MCH 30.9, MCHC 31.6 L, RDW 14.7, Plt Count 194, MPV 7.8, Neut % (Auto) 79.1, Lymph % (Auto) 11.1, [place] % (Auto) 5.7, Eos % (Auto) 3.7, Baso % (Auto) 0.3, Neut # (Auto) 6.4, Lymph # (Auto) 0.9, [place] # (Auto) 0.5, Eos # (Auto) 0.3, Baso # (Auto) 0.0 02/28/21 05:37: Sodium 139, Potassium 3.3 L, Chloride 109 H, Carbon Dioxide 25, Anion Gap 8.3, BUN 17, Creatinine 1.00, Estimated Creat Clear 69, Estimated GFR 54 L, Est GFR ( Amer) 66, Glucose 95, Calcium 7.8 L, Total Bilirubin 0.3, AST 13 L, ALT 9 L, Alkaline Phosphatase 56, Total Protein 5.3 L, Albumin 2.7 L, Globulin 2.6, Albumin/Globulin Ratio 1.0 L I & O for Last 24 hours: Intake & Output 02/25/21 02/26/21 02/27/21 02/28/21 23:59 23:59 23:59 23:59 Intake Total 240 / 480 360 / 360 Output Total 300 / 300 Balance -60 / 180 360 / 360 Weight 186 lb 7 oz 191 lb Narrative: Echo shows: 1. Technically difficult study because of the patient factors and poor acoustic windows. 2. Mild biatrial enlargement, normal left ventricular size, mild concentric left ventricular hypertrophy, visually estimated ejection fraction 55% with no regional wall motion abnormality, Doppler evidence of impaired LV relaxation seen. 3. Mildly enlarged right ventricle with normal contractility. 4. Trace mitral and tricuspid regurgitation. 5. No significant pericardial effusion noted. - Constitutional no acute distress, obese - *Routine HEENT Exam Head: Present: normocephalic, atraumatic Eye: Present: EOMI, PERRL ENT: Present: mucous membranes moist - *Routine Neck E
--- NOTE | 2021-02-28 12:21 | HMH.PULMCON ---
*Admission Date: 02/27/21 *Reason for consult:: Respiratory distress *History of present illness: Ms. Ruiz is a 75-year-old 75 Y/O with history of bronchiectasis, MRSA and Pseudomonas pneumonia transferred to an outside hospital in December 2020 for worsening left-sided pleural effusion presented to the hospital worsening with worsening respiratory distress. [facility] History Medical History: Reports:: Anxiety, Arrhythmia, Atrial Fibrillation, Cardiomyopathy, Congestive Heart Failure, Chronic Obstructive Pulmonary Disease (COPD), Congenital Heart Disease, Coronary Artery Disease, Deep Vein Thrombosis, Gastroesophageal Reflux Disease(GERD), Home Oxygen, Hyperlipidemia, Hypertension, MRSA, Myocardial Infarction, Palpitations, Valvular Heart Disease Denies:: Cancer, Diabetes Mellitus Type 1, Diabetes Mellitus Type 2, Internal Pacemaker *Have you ever received a pneumonia vaccine?: No (Has received in the last five years) *Have you received a flu vaccine this season?: Yes Other Medical History: Reports: Anemia, Arthritis, Cataracts, Fibromyalgia, Hypothyroidism, Sinus Problems, Thyroid Disease Laterality Cases: Left: Arthroscopy Hip, Right: Carpal Tunnel Release Other Surgeries: Yes: Appendectomy, Cardiac Catheterization, Cholecystectomy, Colonoscopy, Hysterectomy-Total, Tubal Ligation, Other. No: Pacemaker Amputation: No Fractures: Yes - *Social History Last grade of school completed: High school graduate Smoking Status: Former smoker Tobacco Type: cigarettes # Packs/Day (cigarettes): 0 #Yrs smoked (if former smoker): 40 Alcohol Intake: never Substance Use Type: denies use *Occupational Status:: retired Housing: longterm Household Members: other *Travel in the last 8 weeks: None - Psychiatric History Pschychiatric History:: Reports:: Anxiety Family Hx:: No significant family history ROS - Cons Reports anorexia, Reports body ache(s), Reports fatigue, Reports weakness - ENT Denies bleeding gums - Card Reports shortness of breath, Reports shortness of breath with activity - Resp Respiratory: Reports shortness of breath, Reports chest congestion, Reports cough, Reports dyspnea, Reports excessive phlegm production, Reports cough with sputum production - GI Gastrointestingal: Denies: abdominal pain - [place] Musculoskeletal: Reports back pain - Psych Reports abnormal sleep pattern Meds Home Medications Medication Instructions Recorded Confirmed Type Pilocarpine HCl [Salagen] 7.5 mg PO TID 05/24/17 02/27/21 History Pantoprazole Sodium [Protonix 40mg 40 mg PO DAILY 10/28/18 02/27/21 History tablet] guaiFENesin [Mucinex] 1,200 mg PO BID 05/25/19 02/27/21 History Acetaminophen 500 mg PO BID 08/12/20 02/27/21 History Albuterol Sulfate [Albuterol 2 puffs IH Q6HP PRN 08/12/20 02/27/21 History Sulfate Hfa] Ferrous Sulfate [Ferrous Sulfate 325 mg PO DAILY 08/12/20 02/27/21 History 325mg Tablet] Hydrocortisone 5 mg PO HS 08/21/20 02/27/21 History Montelukast Sodium [Singulair] 10 mg PO HS 08/21/20 02/27/21 History Atorvastatin Calcium [Lipitor 40mg 40 mg PO HS 10/05/20 02/27/21 History Tablet*] Lactulose [Lactulose 20gm/30ml 20 gm PO DAILYP PRN 10/12/20 02/27/21 History Oral Soln] Loratadine [Allerclear] 10 mg PO DAILY 10/12/20 02/27/21 History Trazodone HCl 100 mg PO HS 10/12/20 02/27/21 History Acetaminophen 500 mg PO Q6HP PRN 12/09/20 02/27/21 History Calcium Carbonate [Tums] 300 mg PO Q6HP PRN 12/09/20 02/27/21 History L.acidoph,Paracasei, B.lactis 1 cap PO DAILY 12/09/20 02/27/21 History [Probiotic] Trospium Chloride 20 mg PO DAILY 12/10/20 02/27/21 History guaiFENesin [Robitussin 200mg/10mL 200 mg PO Q6HP PRN 12/10/20 02/27/21 History Syrup Udc] Tiotropium [place] [Spiriva 2 inh INHALATION HS 12/30/20 02/27/21 History Respimat] Cholecalciferol (Vitamin D3) 1,000 unit PO DAILY 12/31/20 02/27/21 History [Vitamin D3 1,000 Unit Tab] Hydroxychloroquine Sulfate 200 mg PO DAILY 12/31/20 02/27/21
[2021-02-28 14:37] LABS: C-Reactive Protein 122.6 mg/L (0-4)
[2021-02-28 14:45] LABS: Procalcitonin 0.351 ng/mL (0.0-2.0)
--- NOTE | 2021-02-28 16:16 | PC.NURSE ---
Patient is on telemetry and on 3L NC, patient tolerating well. Patient i up with assist times two. Purewick in place. Bed in lowest position and phone and call light in reach. Daughter updated on phone and brothers have been in room to visit with patient Will continue to monitor.
[2021-03-01] VITALS (12 sets, daily range): BP systolic 97–139; BP diastolic 42–97; PULSE 66–110; RESP 15–29; TEMP 36.6–38.2; O2SAT 90–100; BMI 31.8; BMI 31.9
--- NOTE | 2021-03-01 03:38 | PC.NURSE ---
No acute changes t/o shift. Pt has had episodes of confusion t/o shift but can be reoriented. Remains on 3L NC, RT came and placed Pt on bipap for majority of shift and pt tolerated well. Purewick in place draining clear urine. Pt denies any pain. VSS, call light within reach, will continue to monitor.
[2021-03-01 06:06] LABS: Basophils % 0.3 % (0.1-2.0); Eosinophils # 0.2 K/mm3 (0.0-0.4); Eosinophils % 2.8 % (0.1-12.0); Hematocrit 28.9 % (37.0-47.0); Hemoglobin 9.6 g/dL (12.2-16.2); Lymphocytes # 0.8 K/mm3 (0.7-4.5); Lymphocytes % 13.4 % (10-50); Mean Corpuscular HGB Conc 33.1 g/dL (31.8-35.4); Mean Corpuscular Hemoglobin 30.9 pg (27.0-31.2); Mean Corpuscular Volume 93.6 fl (81-99); Mean Platelet Volume 7.8 fl (7.4-10.4); Monocytes # 0.6 K/mm3 (0.1-1.0); Monocytes % 9.4 % (1.7-9.3); Neutrophils # 4.5 K/mm3 (1.8-7.8); Neutrophils % 74.1 % (37.0-80.0); Platelet Count 196 K/mm3 (142-424); Red Blood Count 3.09 M/mm3 (4.20-5.40); Red Cell Distribution Width 14.5 % (11.5-17.5); White Blood Count 6.1 K/mm3 (4.8-10.8)
[2021-03-01 07:08] LABS: Chloride 100 mmol/L (98-107)
[2021-03-01 07:09] LABS: Potassium 3.4 mmoL/L (3.5-5.1); Sodium 134 mmol/L (136-145)
[2021-03-01 07:12] LABS: Anion Gap 9.4 mEq/L (5-15); Blood Urea Nitrogen 23 mg/dl (7-17); Calcium 7.9 mg/dl (8.4-10.2); Carbon Dioxide 28 mmol/L (22.0-30.0); Creatinine Clearance Estimated 49 mL/min (50-200); Estimated Glomerular Filt Rate 37 ml/min (>60); GFR (African American) 45 ML/MIN (>60); Glucose 92 mg/dl (74-100)
[2021-03-01 09:22] LABS: ABG Base Excess 0.1 mmol/L (-2.4-2.3); ABG HCO3 24.6 mmhg (22.0-26.0); ABG Oxygen Saturation 96 % (90-100); ABG PCO2 39.3 mmhg (35.0-45.0); ABG PH 7.42 mmol/L (7.35-7.45); ABG PO2 83.9 mmhg (80-100); ABG TCO2 25.8 mmhg (23-27)
[2021-03-01 09:29] LABS: Allen's Test ACCEPTABLE; Source Left Radial
--- NOTE | 2021-03-01 09:54 | PC.NURSE ---
asssiting with charting vitals and srna checks at this time.
--- NOTE | 2021-03-01 10:04 | HMH.ACPN2 ---
Internal Medicine - PN: Subj *Date: 03/01/21 *Time: 08:15 Interval history: pt laying in bed hard to arouse. daughter at bedside Exam Vital signs and Labs for Last 24 Hours: Temp Pulse Resp BP Pulse Ox 98.0 F 91 H 22 120/97 H 90 L 03/01/21 08:00 03/01/21 08:00 03/01/21 08:00 03/01/21 08:00 03/01/21 08:15 Laboratory Results - last 24 hr 02/28/21 05:37: C-Reactive Protein 122.6 H, Procalcitonin 0.351 03/01/21 05:57: Sodium 134 L, Potassium 3.4 L, Chloride 100, Carbon Dioxide 28, Anion Gap 9.4, BUN 23 H D, Creatinine 1.40 H D, Estimated Creat Clear 49, Estimated GFR 37 L, Est GFR ( Amer) 45 L D, Glucose 92, Calcium 7.9 L 03/01/21 05:57: WBC 6.1, RBC 3.09 L, Hgb 9.6 L, Hct 28.9 L, MCV 93.6, MCH 30.9, MCHC 33.1, RDW 14.5, Plt Count 196, MPV 7.8, Neut % (Auto) 74.1, Lymph % (Auto) 13.4, [place] % (Auto) 9.4 H, Eos % (Auto) 2.8, Baso % (Auto) 0.3, Neut # (Auto) 4.5, Lymph # (Auto) 0.8, [place] # (Auto) 0.6, Eos # (Auto) 0.2, Baso # (Auto) 0.0 03/01/21 08:54: Specimen Source Left radial, O2 % 3.5 lpm, ABG pH 7.42, ABG pCO2 39.3, ABG pO2 83.9, ABG HCO3 24.6, ABG Total CO2 25.8, ABG O2 Saturation 96, ABG Base Excess 0.1, Carlos Test Acceptable I & O for Last 24 hours: Intake & Output 02/26/21 02/27/21 02/28/21 03/01/21 11:59 11:59 11:59 11:59 Intake Total 600 / 600 0 / 0 Output Total 600 / 1000 1500 / 1500 Balance 0 / -400 -1500 / -1500 Weight 200 lb 191 lb 190 lb 15.995 oz - Constitutional no acute distress - *Routine HEENT Exam Head: Present: normocephalic Eye: Present: PERRL ENT: Present: mucous membranes moist - *Routine Neck Exam Present: supple. Absent: lymphadenopathy - *Routine Respiratory Exam Present: crackles - *Routine Cardiovascular Exam Present: RRR - *Routine Abdominal Exam Present: soft, normoactive bowel sounds. Absent: tenderness - *Routine Extremities Exam Absent: cyanosis, clubbing, edema - *Routine Skin Exam Present: warm. Absent: rash - *Routine Neurological Exam aroused to name called Assessment and Plan (1) Acute exacerbation of CHF (congestive heart failure) Status: Acute Category: Medical Code(s): I50.9 - Heart failure, unspecified (2) CAD (coronary artery disease) Status: Chronic Qualifiers: Category: Medical Code(s): I25.10 - Atherosclerotic heart disease of [place] coronary artery without angina pectoris (3) COPD (chronic obstructive pulmonary disease) Status: Chronic Qualifiers: COPD type: unspecified COPD Qualified Code(s): J44.9 - Chronic obstructive pulmonary disease, unspecified Category: Medical Code(s): J44.9 - Chronic obstructive pulmonary disease, unspecified (4) HHD (hypertensive heart disease) Status: Chronic Qualifiers: Heart failure presence: with heart failure Heart failure type: other Qualified Code(s): I11.0 - Hypertensive heart disease with heart failure; I50.89 - Other heart failure Category: Medical Code(s): I11.9 - Hypertensive heart disease without heart failure (5) HLD (hyperlipidemia) Status: Chronic Qualifiers: Hyperlipidemia type: mixed hyperlipidemia Qualified Code(s): E78.2 - Mixed hyperlipidemia Category: Medical Code(s): E78.5 - Hyperlipidemia, unspecified (6) Obesity (BMI 30-39.9) Status: Acute Category: Medical Code(s): E66.9 - Obesity, unspecified (7) Anemia Status: Acute Qualifiers: Anemia type: unspecified type Qualified Code(s): D64.9 - Anemia, unspecified Category: Medical Code(s): D64.9 - Anemia, unspecified (8) Anxiety Status: Acute Category: Medical Code(s): F41.9 - Anxiety disorder, unspecified (9) Hypokalemia Status: Acute Category: Medical Code(s): E87.6 - Hypokalemia - Assessment and plan all Dx Assessment and Plan for all problems:: rounded with dr dillon all orders per dr dillon cardiology consult pulm consult
--- NOTE | 2021-03-01 10:22 | HMH.PNCARD ---
Subjective Date: 03/01/21 Time: 10:10 Principal diagnosis: soa Interval history: This is a 75-year-old white female who presented to the emergency department complaints of shortness of breath and associated lower extremity edema. The patient was found to be in respiratory distress and was started on BiPAP. She now remains on nasal cannula. She states this morning her shortness of breath is better. But she is really hard to arouse and gets very agitated when I try to wake her up. She denies any chest pain or pressure. That is all the review of systems that I can get completed because of her agitation and falling back asleep easily. Exam Vital signs and Labs for Last 24 Hours: Temp Pulse Resp BP Pulse Ox 98.0 F 91 H 22 120/97 H 90 L 03/01/21 08:00 03/01/21 08:00 03/01/21 08:00 03/01/21 08:00 03/01/21 08:15 Laboratory Results - last 24 hr 02/28/21 05:37: C-Reactive Protein 122.6 H, Procalcitonin 0.351 03/01/21 05:57: Sodium 134 L, Potassium 3.4 L, Chloride 100, Carbon Dioxide 28, Anion Gap 9.4, BUN 23 H D, Creatinine 1.40 H D, Estimated Creat Clear 49, Estimated GFR 37 L, Est GFR ( Amer) 45 L D, Glucose 92, Calcium 7.9 L 03/01/21 05:57: WBC 6.1, RBC 3.09 L, Hgb 9.6 L, Hct 28.9 L, MCV 93.6, MCH 30.9, MCHC 33.1, RDW 14.5, Plt Count 196, MPV 7.8, Neut % (Auto) 74.1, Lymph % (Auto) 13.4, [place] % (Auto) 9.4 H, Eos % (Auto) 2.8, Baso % (Auto) 0.3, Neut # (Auto) 4.5, Lymph # (Auto) 0.8, [place] # (Auto) 0.6, Eos # (Auto) 0.2, Baso # (Auto) 0.0 03/01/21 08:54: Specimen Source Left radial, O2 % 3.5 lpm, ABG pH 7.42, ABG pCO2 39.3, ABG pO2 83.9, ABG HCO3 24.6, ABG Total CO2 25.8, ABG O2 Saturation 96, ABG Base Excess 0.1, Carlos Test Acceptable I & O for Last 24 hours: Intake & Output 02/26/21 02/27/21 02/28/21 03/01/21 23:59 23:59 23:59 23:59 Intake Total 240 / 480 360 / 360 Output Total 600 / 600 1300 / 1500 200 / 200 Balance -360 / -120 -940 / -1140 -200 / -200 Weight 186 lb 7 oz 191 lb 190 lb 15.995 oz Narrative: Telemetry strip shows sinus rhythm with a rate of 83. - Constitutional no acute distress, obese - *Routine HEENT Exam Head: Present: normocephalic, atraumatic Eye: Present: EOMI, PERRL ENT: Present: mucous membranes moist - *Routine Neck Exam Present: supple, full ROM, normal carotid upstroke. Absent: JVD, carotid bruit, lymphadenopathy - *Routine Respiratory Exam Present: decreased breath sounds, CTA bilaterally, rales, wheezes, crackles - *Routine Cardiovascular Exam Present: RRR, Normal S1, Normal S2. Absent: murmur - *Routine Abdominal Exam Present: soft, normoactive bowel sounds. Absent: tenderness, distended - *Routine Extremities Exam Present: pulses intact, normal capillary refill. Absent: cyanosis, clubbing, edema - *Routine Skin Exam Present: intact, warm. Absent: erythema, rash - *Routine Neurological Exam Present: alert Unable to assess because the patient is extremely agitated today when I wake her up and falls back asleep easily. Progress Note: A&P (1) Acute exacerbation of CHF (congestive heart failure) Status: Acute (2) CAD (coronary artery disease) Status: Chronic (3) COPD (chronic obstructive pulmonary disease) Status: Chronic (4) HHD (hypertensive heart disease) Status: Chronic (5) HLD (hyperlipidemia) Status: Chronic (6) Obesity (BMI 30-39.9) Status: Acute (7) Anemia Status: Acute (8) Anxiety Status: Acute (9) Hypokalemia Status: Acute Assessment and Plan for All Diagnoses:: Plan: 1. The patient presented to the emergency department with shortness of breath and lower extremity edema. She was in acute respiratory distress and placed on BiPAP. She is now on oxygen via nasal cannula and tolerating this well. 2. The patient states her shortness of breath is better today. She was diuresed with IV Lasix and had a negative fluid balance of 940 mL overnight. Her creatinine did bump up to 1.4. We will stop IV Las
--- NOTE | 2021-03-01 17:04 | XR_ITS ---
PROCEDURE INFORMATION: Exam: XR Chest Exam date and time: 03/01/2021 5:04 PM Age: 75 years old Clinical indication: Shortness of breath; Patient HX: Shortness of air; Additional info: SOA, chf TECHNIQUE: Imaging protocol: XR of the chest. Views: 1 view. COMPARISON: CR XR CHEST PORTABLE 02/27/2021 11:42 AM FINDINGS: Tubes, catheters and devices: Stable positioning of med port catheter. Lungs: COPD, interstitial disease, and basilar airspace disease. Stable nodular densities overlying the left lower lung field. Pleural spaces: Questionable small left pleural effusion. Heart/Mediastinum: Cardiac silhouette upper limits of normal size. Bones/joints: Osteopenia and degenerative change. Surgical resection of the distal right clavicle. IMPRESSION: 1. COPD, interstitial disease, and basilar airspace disease. 2. Additional findings as described above.
--- NOTE | 2021-03-01 18:23 | PC.NURSE ---
PT WAS VERY CONFUSED AND HARD TO AROUSE THIS MORNING. THEREFORE PO MEDS WERE HELD. OVER THE COURSE OF TODAY'S SHIFT SHE BECAME MORE AWARE AND LESS CONFUSED. SHE HAS REQUIRED 3LNC THIS SHIFT AND TOLERATED WELL. O2 SATS CAN ONLY BE OBTAINED IN RIGHT LOWER EXTREMITY. THIS AFTERNOON THIS RN ATTEMPTED TO ADMIN THE MORNING MEDS THAT WERE HELD R/T PT MENTAL STATUS. WHILE ASSESSING VS FOR MED PASS PT WAS NOTED TO BE HYPERTENSIVE WITH BP 84/59. SHE WAS NOT SYMPTOMATIC AND WAS ABLE TO ANSWER QUESTIONS AND FOLLOW COMMANDS. MEDICATIONS WERE HELD AND MD [employer] MANAGER RILEY WAS CONTACTED, ORDER WAS OBTAINED FOR 500 ML BOLUS OF NS. AFTER BOLUS PT VS WERE REASSESSED AND NOTED TO BE 105/53. NO FURTHER ISSUES THIS SHIFT, PUREWICK REMAINS IN PLACE DRAINING CLEAR YELLOW URINE. SHE DENIES N/V/D, PT IS AOX4 AT TIME OF WRITING AND NO DIFFICULTIES SWALLOWING HAVE BEEN NOTED SINCE SHE BECAME MORE ORIENTED.
[2021-03-02] VITALS (12 sets, daily range): BP systolic 104–124; BP diastolic 59–75; PULSE 56–114; RESP 16–26; TEMP 36.3–36.9; O2SAT 87–96; BMI 30.9
--- NOTE | 2021-03-02 00:19 | PC.NURSE ---
03/01/21 [id number] Patient decided she didn't want to wear the Bipap
--- NOTE | 2021-03-02 04:25 | PC.NURSE ---
Patient is A&O x4 this RN's shift. Patient lung sounds are diminished throughout. Patient had a BM this shift on the bedside commode, she was able to ambulate with assistance x1. Patient has worn her BiPap tonight. She has not voiced any complaints to this RN. Vital signs have been stable, call light is within reach, will continue to monitor.
[2021-03-02 06:02] LABS: Basophils % 0.3 % (0.1-2.0); Eosinophils # 0.2 K/mm3 (0.0-0.4); Hematocrit 28.2 % (37.0-47.0); Hemoglobin 9.2 g/dL (12.2-16.2); Lymphocytes # 0.8 K/mm3 (0.7-4.5); Lymphocytes % 13.1 % (10-50); Mean Corpuscular HGB Conc 32.5 g/dL (31.8-35.4); Mean Corpuscular Hemoglobin 30.9 pg (27.0-31.2); Mean Corpuscular Volume 95.2 fl (81-99); Mean Platelet Volume 7.7 fl (7.4-10.4); Monocytes # 0.4 K/mm3 (0.1-1.0); Neutrophils # 4.4 K/mm3 (1.8-7.8); Neutrophils % 76.6 % (37.0-80.0); Platelet Count 194 K/mm3 (142-424); Red Blood Count 2.96 M/mm3 (4.20-5.40); Red Cell Distribution Width 14.6 % (11.5-17.5); White Blood Count 5.7 K/mm3 (4.8-10.8)
[2021-03-02 06:43] LABS: Chloride 102 mmol/L (98-107); Potassium 3.2 mmoL/L (3.5-5.1); Sodium 138 mmol/L (136-145)
[2021-03-02 06:46] LABS: Anion Gap 10.2 mEq/L (5-15); Blood Urea Nitrogen 26 mg/dl (7-17); Calcium 7.7 mg/dl (8.4-10.2); Carbon Dioxide 29 mmol/L (22.0-30.0); Creatinine Clearance Estimated 48 mL/min (50-200); Estimated Glomerular Filt Rate 37 ml/min (>60); GFR (African American) 45 ML/MIN (>60); Glucose 127 mg/dl (74-100)
--- NOTE | 2021-03-02 10:16 | HMH.PNCARD ---
Subjective Date: 03/02/21 Time: 09:00 Principal diagnosis: soa Interval history: This is a 75-year-old white female who presented to the emergency department with complaints of shortness of breath and lower extremity edema. The patient was found to be in respiratory distress and was started on BiPAP but has been weaned down to nasal cannula. She is tolerating this well. This morning she states her shortness of breath is much better and she is feeling much better. She is awake and alert and answering all of my questions today without any agitation. She denies any chest pain or pressure. She denies any fever, chills, nausea, vomiting, diarrhea, PND or orthopnea. Exam Vital signs and Labs for Last 24 Hours: Temp Pulse Resp BP Pulse Ox 97.4 F L 89 20 116/62 93 L 03/02/21 08:00 03/02/21 08:00 03/02/21 08:00 03/02/21 08:00 03/02/21 08:00 Laboratory Results - last 24 hr 03/02/21 05:45: WBC 5.7, RBC 2.96 L, Hgb 9.2 L, Hct 28.2 L, MCV 95.2, MCH 30.9, MCHC 32.5, RDW 14.6, Plt Count 194, MPV 7.7, Neut % (Auto) 76.6, Lymph % (Auto) 13.1, [place] % (Auto) 7.0, Eos % (Auto) 3.0, Baso % (Auto) 0.3, Neut # (Auto) 4.4, Lymph # (Auto) 0.8, [place] # (Auto) 0.4, Eos # (Auto) 0.2, Baso # (Auto) 0.0 03/02/21 05:45: Sodium 138, Potassium 3.2 L, Chloride 102, Carbon Dioxide 29, Anion Gap 10.2, BUN 26 H, Creatinine 1.40 H, Estimated Creat Clear 48, Estimated GFR 37 L, Est GFR ( Amer) 45 L, Glucose 127 H D, Calcium 7.7 L I & O for Last 24 hours: Intake & Output 02/27/21 02/28/21 03/01/21 03/02/21 23:59 23:59 23:59 23:59 Intake Total 240 / 480 360 / 360 480 / 880 1450 / 1450 Output Total 600 / 600 1300 / 1500 200 / 700 1150 / 1150 Balance -360 / -120 -940 / -1140 280 / 180 300 / 300 Weight 186 lb 7 oz 191 lb 191 lb 12.835 oz 186 lb Microbiology Reports for the Last 24 Hours: Microbiology 03/02/21 00:55 Sputum - Expectorated Sputum Gram Stain - Final - Constitutional no acute distress, obese - *Routine HEENT Exam Head: Present: normocephalic, atraumatic Eye: Present: EOMI, PERRL ENT: Present: mucous membranes moist - *Routine Neck Exam Present: supple, full ROM, normal carotid upstroke. Absent: JVD, carotid bruit, lymphadenopathy - *Routine Respiratory Exam Present: CTA bilaterally - *Routine Cardiovascular Exam Present: RRR, Normal S1, Normal S2. Absent: murmur - *Routine Abdominal Exam Present: soft, normoactive bowel sounds. Absent: tenderness, distended - *Routine Extremities Exam Present: full ROM, pulses intact, normal capillary refill. Absent: cyanosis, clubbing, edema - *Routine Skin Exam Present: intact, warm. Absent: erythema, rash - *Routine Neurological Exam Present: alert, oriented X3, CN II-XII intact. Absent: sensory deficit, motor deficit Progress Note: A&P (1) Acute exacerbation of CHF (congestive heart failure) Status: Acute (2) CAD (coronary artery disease) Status: Chronic (3) COPD (chronic obstructive pulmonary disease) Status: Chronic (4) HHD (hypertensive heart disease) Status: Chronic (5) HLD (hyperlipidemia) Status: Chronic (6) Obesity (BMI 30-39.9) Status: Acute (7) Anemia Status: Acute (8) Anxiety Status: Acute (9) Hypokalemia Status: Acute (10) Diastolic CHF Status: Acute Assessment and Plan for All Diagnoses:: Plan: 1. The patient presented to the emergency department with shortness of breath and lower extremity edema. She was in acute respiratory distress and initially placed on BiPAP. She is now on oxygen via nasal cannula and tolerating this well. 2. The patient was also treated for an acute exacerbation of her diastolic congestive heart failure. She has been diuresed with IV Lasix and was switched over to oral Lasix and tolerating this well. Recommend the patient go home on Lasix 40 mg p.o. twice daily. 3. The patient remains hypokalemic today. We will increase her spironolactone to 50 mg p.o. twice daily. 4. The pat
--- NOTE | 2021-03-02 11:54 | HMH.ACPN2 ---
Internal Medicine - PN: Subj *Date: 03/02/21 *Time: 19:17 Interval history: 75-year-old female patient sitting up in bed resting quietly with her eyes open, she reports feeling better today than yesterday denies any respiratory distress during the night. Nursing staff reports she wore her BiPAP the entire night. Currently oxygen saturation 93% on 2 L per nasal cannula Exam Vital signs and Labs for Last 24 Hours: Temp Pulse Resp BP Pulse Ox 97.9 F 105 H 20 124/59 L 91 L 03/02/21 11:18 03/02/21 11:18 03/02/21 11:18 03/02/21 11:18 03/02/21 11:18 Laboratory Results - last 24 hr 03/02/21 05:45: WBC 5.7, RBC 2.96 L, Hgb 9.2 L, Hct 28.2 L, MCV 95.2, MCH 30.9, MCHC 32.5, RDW 14.6, Plt Count 194, MPV 7.7, Neut % (Auto) 76.6, Lymph % (Auto) 13.1, [place] % (Auto) 7.0, Eos % (Auto) 3.0, Baso % (Auto) 0.3, Neut # (Auto) 4.4, Lymph # (Auto) 0.8, [place] # (Auto) 0.4, Eos # (Auto) 0.2, Baso # (Auto) 0.0 03/02/21 05:45: Sodium 138, Potassium 3.2 L, Chloride 102, Carbon Dioxide 29, Anion Gap 10.2, BUN 26 H, Creatinine 1.40 H, Estimated Creat Clear 48, Estimated GFR 37 L, Est GFR ( Amer) 45 L, Glucose 127 H D, Calcium 7.7 L I & O for Last 24 hours: Intake & Output 02/27/21 02/28/21 03/01/21 03/02/21 23:59 23:59 23:59 23:59 Intake Total 240 / 480 360 / 360 480 / 880 1450 / 1450 Output Total 600 / 600 1300 / 1500 200 / 700 2350 / 2350 Balance -360 / -120 -940 / -1140 280 / 180 -900 / -900 Weight 186 lb 7 oz 191 lb 191 lb 12.835 oz 186 lb Microbiology Reports for the Last 24 Hours: Microbiology 03/02/21 00:55 Sputum - Expectorated Sputum Gram Stain - Final - Constitutional no acute distress, chronically ill appearing - *Routine HEENT Exam Head: Present: normocephalic Eye: Present: EOMI ENT: Present: mucous membranes moist - *Routine Neck Exam Present: trachea midline, tracheal deviation - *Routine Respiratory Exam Present: accessory muscle use, decreased breath sounds, rales - *Routine Cardiovascular Exam Present: RRR - *Routine Abdominal Exam Present: soft, normoactive bowel sounds, firm. Absent: tenderness - *Routine Extremities Exam Present: edema, full ROM. Absent: cyanosis, clubbing - *Routine Skin Exam Present: intact, dry, warm. Absent: cyanosis, erythema - *Routine Neurological Exam Present: alert, oriented X3. Absent: motor deficit - Routine Psychiatric Exam Present: normal affect, normal thought process. Absent: auditory hallucinations Assessment and Plan (1) Acute exacerbation of CHF (congestive heart failure) Status: Acute Category: Medical Code(s): I50.9 - Heart failure, unspecified (2) CAD (coronary artery disease) Status: Chronic Qualifiers: Category: Medical Code(s): I25.10 - Atherosclerotic heart disease of [place] coronary artery without angina pectoris (3) COPD (chronic obstructive pulmonary disease) Status: Chronic Qualifiers: COPD type: unspecified COPD Qualified Code(s): J44.9 - Chronic obstructive pulmonary disease, unspecified Category: Medical Code(s): J44.9 - Chronic obstructive pulmonary disease, unspecified (4) HHD (hypertensive heart disease) Status: Chronic Qualifiers: Heart failure presence: with heart failure Heart failure type: other Qualified Code(s): I11.0 - Hypertensive heart disease with heart failure; I50.89 - Other heart failure Category: Medical Code(s): I11.9 - Hypertensive heart disease without heart failure (5) HLD (hyperlipidemia) Status: Chronic Qualifiers: Hyperlipidemia type: mixed hyperlipidemia Qualified Code(s): E78.2 - Mixed hyperlipidemia Category: Medical Code(s): E78.5 - Hyperlipidemia, unspecified (6) Obesity (BMI 30-39.9) Status: Acute Category: Medical Code(s): E66.9 - Obesity, unspecified (7) Anemia Status: Acute Qualifiers: Anemia type: unspecified type Qualified Code(s): D64.9 - Anemia, unspecified Category: Medical Cod
--- NOTE | 2021-03-02 16:28 | PC.WOUNDNOTE ---
2x1 stage two, 5x4 stage one pressure injury coccyx
--- NOTE | 2021-03-02 23:45 | PC.NURSE ---
Patient refused to wear bipap
[2021-03-03] VITALS (11 sets, daily range): BP systolic 94–120; BP diastolic 44–67; PULSE 60–110; RESP 17–22; TEMP 36.4–36.9; O2SAT 90–99; BMI 30.9
--- NOTE | 2021-03-03 03:47 | PC.NURSE ---
Pt has been restless this shift. Pt Is A&O x4, BLT lungs diminished with course crackles. Bowel sounds present in all 4 quadrants. Pt IV patent and infusing well Pt on 3L NC. Pt maintaining o2 saturation. Pt denies SOA, n/v. pt medicated per MAR for pain. Pt has called out multiple times this shift wanting staff to sit in the room with her r/t feeling lonely. Pt has voided per purewick and bedside commode with x1 assistance. Pt's dressing to coccyx remains C/D/I
[2021-03-03 05:44] LABS: Basophils % 0.4 % (0.1-2.0); Eosinophils # 0.3 K/mm3 (0.0-0.4); Eosinophils % 4.3 % (0.1-12.0); Hematocrit 29.9 % (37.0-47.0); Hemoglobin 9.7 g/dL (12.2-16.2); Lymphocytes # 1.1 K/mm3 (0.7-4.5); Lymphocytes % 16.7 % (10-50); Mean Corpuscular HGB Conc 32.6 g/dL (31.8-35.4); Mean Corpuscular Hemoglobin 30.7 pg (27.0-31.2); Mean Corpuscular Volume 94.2 fl (81-99); Mean Platelet Volume 7.6 fl (7.4-10.4); Monocytes # 0.4 K/mm3 (0.1-1.0); Monocytes % 6.5 % (1.7-9.3); Neutrophils # 4.6 K/mm3 (1.8-7.8); Neutrophils % 72.1 % (37.0-80.0); Platelet Count 245 K/mm3 (142-424); Red Blood Count 3.17 M/mm3 (4.20-5.40); Red Cell Distribution Width 14.8 % (11.5-17.5); White Blood Count 6.4 K/mm3 (4.8-10.8)
[2021-03-03 05:48] LABS: Chloride 97 mmol/L (98-107); Sodium 138 mmol/L (136-145)
[2021-03-03 05:51] LABS: Blood Urea Nitrogen 25 mg/dl (7-17); Calcium 7.9 mg/dl (8.4-10.2); Carbon Dioxide 32 mmol/L (22.0-30.0); Creatinine Clearance Estimated 42 mL/min (50-200); Estimated Glomerular Filt Rate 32 ml/min (>60); GFR (African American) 38 ML/MIN (>60); Glucose 117 mg/dl (74-100)
--- NOTE | 2021-03-03 09:44 | XR_ITS ---
PROCEDURE: XR CHEST PORTABLE CLINICAL HISTORY: soa COMPARISON: CT CT CHEST WO CON from 01/05/2021 CR XR CHEST PORTABLE from 02/16/2021 CR XR CHEST PORTABLE from 02/27/2021 CR XR CHEST PORTABLE from 03/01/2021 FINDINGS: Borderline cardiomegaly without failure. Right subclavian MediPort catheter present with tip in the region the SVC. COPD with interstitial changes as before. Bibasilar atelectasis has shown some improvement with some minimal residual left basilar airspace disease. IMPRESSION: Improving bibasilar atelectasis or infiltrate with some residual airspace disease in the left lung base. Dictated by: Carlos Starks MD 03/03/2021 10:27 Carlos Starks MD in [facility] 03/03/2021 10:27
--- NOTE | 2021-03-03 10:36 | HMH.ACPN2 ---
Internal Medicine - PN: Subj *Date: 03/03/21 *Time: 08:00 Interval history: pt laying in bed states coughing up sputum. Exam Vital signs and Labs for Last 24 Hours: Temp Pulse Resp BP Pulse Ox 97.7 F 69 17 120/67 96 03/03/21 08:00 03/03/21 08:00 03/03/21 08:00 03/03/21 08:00 03/03/21 09:45 Laboratory Results - last 24 hr 03/03/21 05:30: WBC 6.4, RBC 3.17 L, Hgb 9.7 L, Hct 29.9 L, MCV 94.2, MCH 30.7, MCHC 32.6, RDW 14.8, Plt Count 245 D, MPV 7.6, Neut % (Auto) 72.1, Lymph % (Auto) 16.7, [place] % (Auto) 6.5, Eos % (Auto) 4.3, Baso % (Auto) 0.4, Neut # (Auto) 4.6, Lymph # (Auto) 1.1, [place] # (Auto) 0.4, Eos # (Auto) 0.3, Baso # (Auto) 0.0 03/03/21 05:30: Sodium 138, Potassium 4.0 D, Chloride 97 L, Carbon Dioxide 32 H, Anion Gap 13.0, BUN 25 H, Creatinine 1.60 H, Estimated Creat Clear 42, Estimated GFR 32 L, Est GFR ( Amer) 38 L, Glucose 117 H, Calcium 7.9 L I & O for Last 24 hours: Intake & Output 02/28/21 03/01/21 03/02/21 03/03/21 11:59 11:59 11:59 11:59 Intake Total 600 / 600 0 / 0 1930 / 1930 1440 / 1440 Output Total 600 / 1000 1500 / 1500 2350 / 2350 2850 / 2850 Balance 0 / -400 -1500 / -1500 -420 / -420 -1410 / -1410 Weight 191 lb 191 lb 12.835 oz 186 lb 185 lb 15.993 oz Microbiology Reports for the Last 24 Hours: Microbiology 03/02/21 00:55 Sputum - Expectorated Sputum Gram Stain - Final 03/02/21 00:55 Sputum - Expectorated Sputum Sputum Culture - Preliminary - Constitutional no acute distress, chronically ill appearing - *Routine HEENT Exam Head: Present: normocephalic Eye: Present: PERRL ENT: Present: mucous membranes moist - *Routine Neck Exam Present: supple. Absent: lymphadenopathy - *Routine Respiratory Exam Present: CTA bilaterally - *Routine Cardiovascular Exam Present: RRR - *Routine Abdominal Exam Present: soft, normoactive bowel sounds. Absent: tenderness - *Routine Extremities Exam Present: normal capillary refill. Absent: cyanosis, clubbing, edema - *Routine Skin Exam Present: warm. Absent: rash - *Routine Neurological Exam Present: alert, oriented X3 Assessment and Plan (1) Acute exacerbation of CHF (congestive heart failure) Status: Acute Category: Medical Code(s): I50.9 - Heart failure, unspecified (2) CAD (coronary artery disease) Status: Chronic Qualifiers: Category: Medical Code(s): I25.10 - Atherosclerotic heart disease of [place] coronary artery without angina pectoris (3) COPD (chronic obstructive pulmonary disease) Status: Chronic Qualifiers: COPD type: unspecified COPD Qualified Code(s): J44.9 - Chronic obstructive pulmonary disease, unspecified Category: Medical Code(s): J44.9 - Chronic obstructive pulmonary disease, unspecified (4) HHD (hypertensive heart disease) Status: Chronic Qualifiers: Heart failure presence: with heart failure Heart failure type: other Qualified Code(s): I11.0 - Hypertensive heart disease with heart failure; I50.89 - Other heart failure Category: Medical Code(s): I11.9 - Hypertensive heart disease without heart failure (5) HLD (hyperlipidemia) Status: Chronic Qualifiers: Hyperlipidemia type: mixed hyperlipidemia Qualified Code(s): E78.2 - Mixed hyperlipidemia Category: Medical Code(s): E78.5 - Hyperlipidemia, unspecified (6) Obesity (BMI 30-39.9) Status: Acute Category: Medical Code(s): E66.9 - Obesity, unspecified (7) Anemia Status: Acute Qualifiers: Anemia type: unspecified type Qualified Code(s): D64.9 - Anemia, unspecified Category: Medical Code(s): D64.9 - Anemia, unspecified (8) Anxiety Status: Acute Category: Medical Code(s): F41.9 - Anxiety disorder, unspecified (9) Hypokalemia Status: Acute Category: Medical Code(s): E87.6 - Hypokalemia (10) Diastolic CHF Status: Acute Category: Medical Code(s): I50.30 - Unspecified diastolic (congestive) heart failure -
--- NOTE | 2021-03-03 13:21 | DIET.NUTRFU ---
Addendum entered by Sarita King 03/06/21 10:46: PO intakes 50% + BID supplements, weight down another 4#. Original Note: Pt states she is eating much better, PO intakes 50%. She requests BID protein shakes, added to order. Weight is down 4# from admission.
--- NOTE | 2021-03-03 16:06 | PC.NURSE ---
1600 Pt has rested in intervals this shift, lying in bed talking with her visitor at this time. She has been A&O X4 with no c/o pain/discomfort. Pt denies any SOA or chest pain this shift. Lung sounds noted as coarse crackles to debbie bases, expiratory wheezing and diminished throughout. Abd soft and nontender with BS active in all quads, tolerating diet well. No BM this shift. Purewik in place, tolerated well by pt. 500 ml clear, yellow urine emptied during bed bath. Pt tolerated bath and linen change well, did become anxious toward the end and was medicated with PRN xanax as requested. Stage 2 pressure ulcer assessed during bath, redressed. Bed locked and in lowest position with side rails up x2, will continue to monitor.
[2021-03-04] VITALS (12 sets, daily range): BP systolic 90–124; BP diastolic 42–85; PULSE 69–105; RESP 4–25; TEMP 36.2–37.4; O2SAT 90–99; BMI 30.4
--- NOTE | 2021-03-04 04:56 | PC.NURSE ---
Patient is A&Ox4. Patient was placed on Bipap around 0130 by RT. Patient has rested well this shift with no acute changes noted. She has had no complaints voiced to this RN. Patient's port located in her right upper chest and is patent and SL. There is a stage 2 ulcer noted on her coccyx. Patient's VSS, call light within reach, will continue to monitor.
[2021-03-04 06:35] LABS: Chloride 93 mmol/L (98-107); Sodium 136 mmol/L (136-145)
[2021-03-04 06:36] LABS: Potassium 4.2 mmoL/L (3.5-5.1)
[2021-03-04 06:38] LABS: Blood Urea Nitrogen 25 mg/dl (7-17); Creatinine Clearance Estimated 41 mL/min (50-200); Estimated Glomerular Filt Rate 32 ml/min (>60); GFR (African American) 38 ML/MIN (>60)
[2021-03-04 06:39] LABS: Calcium 8.2 mg/dl (8.4-10.2); Carbon Dioxide 35 mmol/L (22.0-30.0); Glucose 100 mg/dl (74-100)
[2021-03-04 06:40] LABS: Anion Gap 12.2 mEq/L (5-15); Basophils % 0.4 % (0.1-2.0); Eosinophils # 0.3 K/mm3 (0.0-0.4); Eosinophils % 3.4 % (0.1-12.0); Hemoglobin 9.1 g/dL (12.2-16.2); Lymphocytes % 12.7 % (10-50); Mean Corpuscular HGB Conc 32.4 g/dL (31.8-35.4); Mean Corpuscular Hemoglobin 30.6 pg (27.0-31.2); Mean Corpuscular Volume 94.4 fl (81-99); Monocytes # 0.5 K/mm3 (0.1-1.0); Monocytes % 6.9 % (1.7-9.3); Neutrophils % 76.6 % (37.0-80.0); Platelet Count 247 K/mm3 (142-424); Red Blood Count 2.98 M/mm3 (4.20-5.40); Red Cell Distribution Width 14.3 % (11.5-17.5); White Blood Count 7.9 K/mm3 (4.8-10.8)
[2021-03-04 06:41] LABS: Hematocrit 28.2 % (37.0-47.0)
--- NOTE | 2021-03-04 09:12 | HMH.ACPN2 ---
Internal Medicine - PN: Subj *Date: 03/04/21 *Time: 08:00 Interval history: PT SITTING UP EATING BREAKFAST. Exam Vital signs and Labs for Last 24 Hours: Temp Pulse Resp BP Pulse Ox 97.8 F 83 20 122/45 L 95 03/04/21 08:00 03/04/21 08:00 03/04/21 08:00 03/04/21 08:00 03/04/21 08:00 Laboratory Results - last 24 hr 03/04/21 05:45: WBC 7.9, RBC 2.98 L, Hgb 9.1 L, Hct 28.2 L, MCV 94.4, MCH 30.6, MCHC 32.4, RDW 14.3, Plt Count 247, MPV 8.0, Neut % (Auto) 76.6, Lymph % (Auto) 12.7, [place] % (Auto) 6.9, Eos % (Auto) 3.4, Baso % (Auto) 0.4, Neut # (Auto) 6.0, Lymph # (Auto) 1.0, [place] # (Auto) 0.5, Eos # (Auto) 0.3, Baso # (Auto) 0.0 03/04/21 05:45: Sodium 136, Potassium 4.2, Chloride 93 L, Carbon Dioxide 35 H, Anion Gap 12.2, BUN 25 H, Creatinine 1.60 H, Estimated Creat Clear 41, Estimated GFR 32 L, Est GFR ( Amer) 38 L, Glucose 100, Calcium 8.2 L I & O for Last 24 hours: Intake & Output 03/01/21 03/02/21 03/03/21 03/04/21 11:59 11:59 11:59 11:59 Intake Total 0 / 0 1930 / 1930 1440 / 1440 870 / 870 Output Total 1500 / 1500 2350 / 2350 2875 / 2875 1800 / 1800 Balance -1500 / -1500 -420 / -420 -1435 / -1435 -930 / -930 Weight 191 lb 12.835 oz 186 lb 185 lb 15.993 oz 182 lb 7 oz Microbiology Reports for the Last 24 Hours: Microbiology 03/02/21 00:55 Sputum - Expectorated Sputum Gram Stain - Final 03/02/21 00:55 Sputum - Expectorated Sputum Sputum Culture - Preliminary - Constitutional no acute distress, chronically ill appearing - *Routine HEENT Exam Head: Present: normocephalic Eye: Present: PERRL ENT: Present: mucous membranes moist - *Routine Neck Exam Present: supple. Absent: lymphadenopathy - *Routine Respiratory Exam Present: CTA bilaterally - *Routine Cardiovascular Exam Present: RRR - *Routine Abdominal Exam Present: soft, normoactive bowel sounds. Absent: tenderness - *Routine Extremities Exam Present: normal capillary refill. Absent: cyanosis, clubbing, edema - *Routine Skin Exam Present: warm. Absent: rash - *Routine Neurological Exam Present: alert, oriented X3 Assessment and Plan (1) Acute exacerbation of CHF (congestive heart failure) Status: Acute Category: Medical Code(s): I50.9 - Heart failure, unspecified (2) CAD (coronary artery disease) Status: Chronic Qualifiers: Category: Medical Code(s): I25.10 - Atherosclerotic heart disease of [place] coronary artery without angina pectoris (3) COPD (chronic obstructive pulmonary disease) Status: Chronic Qualifiers: COPD type: unspecified COPD Qualified Code(s): J44.9 - Chronic obstructive pulmonary disease, unspecified Category: Medical Code(s): J44.9 - Chronic obstructive pulmonary disease, unspecified (4) HHD (hypertensive heart disease) Status: Chronic Qualifiers: Heart failure presence: with heart failure Heart failure type: other Qualified Code(s): I11.0 - Hypertensive heart disease with heart failure; I50.89 - Other heart failure Category: Medical Code(s): I11.9 - Hypertensive heart disease without heart failure (5) HLD (hyperlipidemia) Status: Chronic Qualifiers: Hyperlipidemia type: mixed hyperlipidemia Qualified Code(s): E78.2 - Mixed hyperlipidemia Category: Medical Code(s): E78.5 - Hyperlipidemia, unspecified (6) Obesity (BMI 30-39.9) Status: Acute Category: Medical Code(s): E66.9 - Obesity, unspecified (7) Anemia Status: Acute Qualifiers: Anemia type: unspecified type Qualified Code(s): D64.9 - Anemia, unspecified Category: Medical Code(s): D64.9 - Anemia, unspecified (8) Anxiety Status: Acute Category: Medical Code(s): F41.9 - Anxiety disorder, unspecified (9) Hypokalemia Status: Acute Category: Medical Code(s): E87.6 - Hypokalemia (10) Diastolic CHF Status: Acute Category: Medical Code(s): I50.30 - Unspecified diastolic (congestive) heart failure - Assessmen
--- NOTE | 2021-03-04 17:04 | PC.NURSE ---
Pt has been pleasant and cooperative this shift. A&O X4. No complaints of pain or SOA. Pt is currently receiving O2 via NC @ 2 LPM with sats. >90%. Lung sounds reveal expiratory rhonchi. No edema noted. Telemetry reveals NSR. Stage 2 ulceration noted to coccyx and covered with pressure-relief dressing applied. Pt requires assistance with turning/repositioning and has been assisted Q2H this shift. Pt is incontinent of bladder and a Purwick is in place. Urine is clear and yellow. No BM thus far today. Pt is tolerating a cardiac diet and eats 75-100% of all meals. Implanted port in place to the RT chest is patent and SL. VSS. Call light within reach. Will continue to monitor.
[2021-03-05] VITALS (11 sets, daily range): BP systolic 91–154; BP diastolic 51–74; PULSE 80–102; RESP 21–28; TEMP 36.8–37.4; O2SAT 90–100; BMI 30.4
--- NOTE | 2021-03-05 06:00 | PC.NURSE ---
Patient is A&Ox4. Lung sounds have expiratory rhonchi noted. She has rested well this shift and has worn her BiPap while asleep. Patient does appear to be more drowsy than usual. VSS, call light within reach, will continue to monitor.
[2021-03-05 07:16] LABS: Basophils % 0.5 % (0.1-2.0); Eosinophils # 0.3 K/mm3 (0.0-0.4); Eosinophils % 3.6 % (0.1-12.0); Hematocrit 27.6 % (37.0-47.0); Lymphocytes # 1.2 K/mm3 (0.7-4.5); Lymphocytes % 14.9 % (10-50); Mean Corpuscular HGB Conc 32.4 g/dL (31.8-35.4); Mean Corpuscular Hemoglobin 30.7 pg (27.0-31.2); Mean Corpuscular Volume 94.6 fl (81-99); Mean Platelet Volume 7.8 fl (7.4-10.4); Monocytes # 0.5 K/mm3 (0.1-1.0); Monocytes % 6.1 % (1.7-9.3); Neutrophils % 74.9 % (37.0-80.0); Platelet Count 259 K/mm3 (142-424); Red Blood Count 2.92 M/mm3 (4.20-5.40); Red Cell Distribution Width 14.4 % (11.5-17.5)
[2021-03-05 07:23] LABS: Chloride 91 mmol/L (98-107); Sodium 134 mmol/L (136-145)
[2021-03-05 07:24] LABS: Potassium 4.8 mmoL/L (3.5-5.1)
[2021-03-05 07:27] LABS: Anion Gap 11.8 mEq/L (5-15); Blood Urea Nitrogen 34 mg/dl (7-17); Calcium 8.2 mg/dl (8.4-10.2); Carbon Dioxide 36 mmol/L (22.0-30.0); Creatinine Clearance Estimated 30 mL/min (50-200); Estimated Glomerular Filt Rate 22 ml/min (>60); GFR (African American) 26 ML/MIN (>60); Glucose 106 mg/dl (74-100)
--- NOTE | 2021-03-05 09:50 | XR_ITS ---
PROCEDURE INFORMATION: Exam: XR Chest Exam date and time: 03/05/2021 9:50 AM Age: 75 years old Clinical indication: Shortness of breath; Additional info: SOB TECHNIQUE: Imaging protocol: XR of the chest. Views: 1 view. AP upright portable exam 12:23 p.m. COMPARISON: CR XR CHEST PORTABLE 03/03/2021 9:51 AM FINDINGS: Tubes, catheters and devices: Indwelling right subclavian central venous catheter unchanged, with tip projected over the superior vena cava above the right atrium. Lungs: Pulmonary hyperinflation with flattening of diaphragms. Hazy airspace disease in the right lower lobe, and in the mid and lower left lung slightly increased in the interval. Persistent left lingular or anterolateral left basilar opacity obscuring the lower left heart border. Pulmonary vessels appear slightly more congested compared with the prior exam, with increased hazy central interstitial prominence and peribronchial thickening. Chronic calcified left lower pulmonary granuloma. Pleural spaces: Possible trace left pleural effusion. No pneumothorax. Heart/Mediastinum: Mild cardiomegaly, accentuated by portable AP technique. Vasculature: Calcified plaque in the aortic arch. Bones/joints: Osteopenia.There are spinal degenerative changes, with multilevel disc narrrowing and spondylosis. 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 Milder arthritis at the right shoulder. Other findings: Overlying monitoring engineer electrodes. IMPRESSION: 1. Mild cardiomegaly, increased vascular congestion compared with 03/03/2021. 2. Pulmonary hyperinflation. Slightly increased hazy airspace disease in the lower lobes and mid left lung, correlate for edema or pneumonia. 3. Additional nonemergency and chronic findings as above.
--- NOTE | 2021-03-05 09:52 | HMH.ACPN2 ---
Internal Medicine - PN: Subj *Date: 03/06/21 *Time: 05:09 Interval history: somnolent but no specific c/o has increased creat- will adjust meds - pt oob Exam Vital signs and Labs for Last 24 Hours: Temp Pulse Resp BP Pulse Ox 99.3 F 96 H 26 H 154/62 H 88 L 03/05/21 08:00 03/05/21 08:00 03/05/21 08:00 03/05/21 08:00 03/05/21 08:00 Laboratory Results - last 24 hr 03/05/21 07:00: WBC 8.0, RBC 2.92 L, Hgb 9.0 L, Hct 27.6 L, MCV 94.6, MCH 30.7, MCHC 32.4, RDW 14.4, Plt Count 259, MPV 7.8, Neut % (Auto) 74.9, Lymph % (Auto) 14.9, [place] % (Auto) 6.1, Eos % (Auto) 3.6, Baso % (Auto) 0.5, Neut # (Auto) 6.0, Lymph # (Auto) 1.2, [place] # (Auto) 0.5, Eos # (Auto) 0.3, Baso # (Auto) 0.0 03/05/21 07:00: Sodium 134 L, Potassium 4.8, Chloride 91 L, Carbon Dioxide 36 H, Anion Gap 11.8, BUN 34 H D, Creatinine 2.20 H D, Estimated Creat Clear 30, Estimated GFR 22 L, Est GFR ( Amer) 26 L D, Glucose 106 H, Calcium 8.2 L I & O for Last 24 hours: Intake & Output 03/02/21 03/03/21 03/04/21 03/05/21 11:59 11:59 11:59 11:59 Intake Total 1930 / 1930 1440 / 1440 1590 / 1590 1080 / 1080 Output Total 2350 / 2350 2875 / 2875 1800 / 2500 1400 / 1400 Balance -420 / -420 -1435 / -1435 -210 / -910 -320 / -320 Weight 186 lb 185 lb 15.993 oz 182 lb 7 oz 182 lb 6.991 oz Microbiology Reports for the Last 24 Hours: Microbiology 03/02/21 00:55 Sputum - Expectorated Sputum Gram Stain - Final 03/02/21 00:55 Sputum - Expectorated Sputum Sputum Culture - Preliminary - Constitutional no acute distress - *Routine HEENT Exam Head: Present: normocephalic Eye: Present: EOMI, PERRL ENT: Present: mucous membranes dry - *Routine Neck Exam Absent: JVD - *Routine Respiratory Exam Present: decreased breath sounds - *Routine Cardiovascular Exam Present: RRR, murmur, S4 - *Routine Abdominal Exam Present: soft - *Routine Extremities Exam Absent: calf tenderness - *Routine Skin Exam Present: intact - *Routine Neurological Exam Present: alert, CN II-XII intact - Routine Psychiatric Exam Present: cooperative Assessment and Plan (1) Acute exacerbation of CHF (congestive heart failure) Status: Acute Category: Medical Code(s): I50.9 - Heart failure, unspecified (2) CAD (coronary artery disease) Status: Chronic Qualifiers: Category: Medical Code(s): I25.10 - Atherosclerotic heart disease of [place] coronary artery without angina pectoris (3) COPD (chronic obstructive pulmonary disease) Status: Chronic Qualifiers: COPD type: unspecified COPD Qualified Code(s): J44.9 - Chronic obstructive pulmonary disease, unspecified Category: Medical Code(s): J44.9 - Chronic obstructive pulmonary disease, unspecified (4) HHD (hypertensive heart disease) Status: Chronic Qualifiers: Heart failure presence: with heart failure Heart failure type: other Qualified Code(s): I11.0 - Hypertensive heart disease with heart failure; I50.89 - Other heart failure Category: Medical Code(s): I11.9 - Hypertensive heart disease without heart failure (5) HLD (hyperlipidemia) Status: Chronic Qualifiers: Hyperlipidemia type: mixed hyperlipidemia Qualified Code(s): E78.2 - Mixed hyperlipidemia Category: Medical Code(s): E78.5 - Hyperlipidemia, unspecified (6) Obesity (BMI 30-39.9) Status: Acute Category: Medical Code(s): E66.9 - Obesity, unspecified (7) Anemia Status: Acute Qualifiers: Anemia type: unspecified type Qualified Code(s): D64.9 - Anemia, unspecified Category: Medical Code(s): D64.9 - Anemia, unspecified (8) Anxiety Status: Acute Category: Medical Code(s): F41.9 - Anxiety disorder, unspecified (9) Hypokalemia Status: Acute Category: Medical Code(s): E87.6 - Hypokalemia (10) Diastolic CHF Status: Acute Category: Medical Code(s): I50.30 - Unspecified diastolic (congestive) heart failure
--- NOTE | 2021-03-05 17:34 | PC.NURSE ---
Pt has been pleasant and cooperative this shift. A&O X4. No complaints of pain or SOA. Pt is currently receiving O2 via NC @ 2 LPM with sats. >90%. Lung sounds reveal expiratory rhonchi. No edema noted. Telemetry reveals NSR. Stage 2 ulceration noted to coccyx and covered with pressure-relief dressing applied. Pt requires assistance with turning/repositioning and has been assisted Q2H this shift. Pt is incontinent of bladder and a Purwick is in place. Urine is clear and yellow. No BM thus far today. Pt is tolerating a cardiac diet and eats 75-100% of all meals. Implanted port in place to the RT chest is patent and infusing NS @ 50 ML/HR. B/P has been slightly low this shift. Other VSS. Call light within reach. Will continue to monitor.
--- NOTE | 2021-03-05 17:36 | PC.NURSE ---
This nurse was called for assistance to pt room. Found pt sitting in the floor. Tech witnessed fall. Reports that pt was trying to use the BSC and felt too weak to stand any longer. Tech assisted the pt to ease to a sitting position in the floor. Pt has no complaints of pain and is currently resting in bed. Dr. Arshad notified. No new orders received.
--- NOTE | 2021-03-05 18:21 | PC.NURSE ---
Pt has been pleasant and cooperative this shift. A&O X4. No complaints of pain or SOA. Pt is currently receiving O2 via NC @ 2 LPM with sats. >90%. Lung sounds reveal expiratory rhonchi. No edema noted. Telemetry reveals NSR. Stage 2 ulceration noted to coccyx and covered with pressure-relief dressing applied. Pt requires assistance with turning/repositioning and has been assisted Q2H this shift. Pt ambulates with assistance X2 and sat up in the recliner for several hours today. Pt is incontinent of bladder and a Purwick is in place. Urine is clear and yellow. No BM thus far today. Pt is tolerating a cardiac diet and eats 75-100% of all meals. Implanted port in place to the RT chest is patent and infusing NS @ 50 ML/HR. B/P has been slightly low this shift. Other VSS. Call light within reach. Will continue to monitor.
[2021-03-06] VITALS (33 sets, daily range): BP systolic 70–139; BP diastolic 34–74; PULSE 64–130; RESP 16–22; TEMP 36.4–37.1; O2SAT 3–100
--- NOTE | 2021-03-06 03:37 | PC.NURSE ---
Patient is A&Ox4. This RN received report that patient had fell during first shift. Patient has been monitored every 30 minutes this shift for precaution. Patient has remained on 2LNC while awake and patient wears BiPap at night. Patient has expiratory rhonchi noted when auscultating lung sounds. She has a implanted port to her right upper chest that is accessed and has NS infusing at 75 ml/hr. Patient voids using the purewick and urine is noted to be clear and yellow. Patient has voiced no complaints to this RN. VSS, call light within reach, will continue to monitor.
[2021-03-06 06:04] LABS: Basophils % 0.2 % (0.1-2.0); Eosinophils # 0.3 K/mm3 (0.0-0.4); Hemoglobin 8.2 g/dL (12.2-16.2); Lymphocytes # 1.2 K/mm3 (0.7-4.5); Lymphocytes % 15.8 % (10-50); Mean Corpuscular HGB Conc 31.6 g/dL (31.8-35.4); Mean Corpuscular Hemoglobin 30.4 pg (27.0-31.2); Mean Corpuscular Volume 96.1 fl (81-99); Mean Platelet Volume 6.6 fl (7.4-10.4); Monocytes # 0.6 K/mm3 (0.1-1.0); Neutrophils # 5.5 K/mm3 (1.8-7.8); Neutrophils % 71.9 % (37.0-80.0); Platelet Count 242 K/mm3 (142-424); Red Blood Count 2.71 M/mm3 (4.20-5.40); Red Cell Distribution Width 14.1 % (11.5-17.5); White Blood Count 7.7 K/mm3 (4.8-10.8)
[2021-03-06 06:08] LABS: Hematocrit 26.1 % (37.0-47.0)
[2021-03-06 07:12] LABS: Chloride 91 mmol/L (98-107)
[2021-03-06 07:13] LABS: Potassium 4.9 mmoL/L (3.5-5.1); Sodium 133 mmol/L (136-145)
[2021-03-06 07:15] LABS: Blood Urea Nitrogen 37 mg/dl (7-17); Creatinine Clearance Estimated 33 mL/min (50-200); Estimated Glomerular Filt Rate 24 ml/min (>60); GFR (African American) 30 ML/MIN (>60)
[2021-03-06 07:16] LABS: Anion Gap 10.9 mEq/L (5-15); Carbon Dioxide 36 mmol/L (22.0-30.0); Glucose 100 mg/dl (74-100)
--- NOTE | 2021-03-06 08:14 | CT_ITS ---
PROCEDURE: CT CHEST WO CON CLINICAL INDICATION: soa?poss pneumonia COMPARISON: CT CT CHEST WO CON from 01/05/2021 TECHNIQUE: Axial images obtained with sagittal and coronal reformats. All CT scans at the facility use one or more dose reduction, viz: automated exposure control, ma/kV adjustment per patient size (including targeted exams where dose is matched to indication, i.e. head), or iterative reconstruction technique. FINDINGS: HEART AND MEDIASTINAL STRUCTURES: Mildly prominent precarinal mediastinal lymph node at 2.2 x 1.7 cm. Other smaller nodes are present. Coronary artery calcifications. LUNGS AND PLEURAL SPACES: There are 2 nodules in the right lower lobe anteriorly. Chronic volume loss is present in the right middle lobe medially. Right upper lobe pneumonia. Patchy areas of infiltrate are present in the left upper lobe anteriorly and posteriorly. 6 mm nodule right upper lobe posteriorly and laterally a 6 mm nodules present in the left upper lobe laterally. Atelectatic changes are present in the left lower lobe posteriorly with bronchial thickening. Left chest tube is been removed. There is a subpleural nodule in the right lower lobe posteriorly and medially at 8 mm unchanged.. There is trace left effusion. No evidence of left-sided pneumothorax. BONY STRUCTURES: Degenerative changes in the thoracic spine UPPER ABDOMEN: Unremarkable. ADDITIONAL FINDINGS: MediPort catheter is present from right subclavian approach with tip in the region of the SVC. IMPRESSION: 1. Bilateral pneumonia. 2. Chronic right middle lobe volume loss. 3. Bilateral pulmonary nodular opacities. These could be infectious or neoplastic. Short-term follow-up recommended Dictated by: Carlos Starks MD 03/06/2021 10:46 Carlos Starks MD in [facility] 03/06/2021 10:46
--- NOTE | 2021-03-06 10:01 | HMH.ACPN2 ---
Internal Medicine - PN: Subj *Date: 03/06/21 *Time: 08:50 Interval history: pt resting in bed eating breakfast Exam Vital signs and Labs for Last 24 Hours: Temp Pulse Resp BP Pulse Ox 98.2 F 94 H 18 128/52 L 94 L 03/06/21 08:00 03/06/21 08:00 03/06/21 08:00 03/06/21 08:00 03/06/21 08:00 Laboratory Results - last 24 hr 03/06/21 05:50: WBC 7.7, RBC 2.71 L, Hgb 8.2 L, Hct 26.1 L, MCV 96.1, MCH 30.4, MCHC 31.6 L, RDW 14.1, Plt Count 242, MPV 6.6 L, Neut % (Auto) 71.9, Lymph % (Auto) 15.8, [place] % (Auto) 8.0, Eos % (Auto) 4.0, Baso % (Auto) 0.2, Neut # (Auto) 5.5, Lymph # (Auto) 1.2, [place] # (Auto) 0.6, Eos # (Auto) 0.3, Baso # (Auto) 0.0 03/06/21 05:50: Sodium 133 L, Potassium 4.9, Chloride 91 L, Carbon Dioxide 36 H, Anion Gap 10.9, BUN 37 H, Creatinine 2.00 H, Estimated Creat Clear 33, Estimated GFR 24 L, Est GFR ( Amer) 30 L, Glucose 100, Calcium 8.0 L I & O for Last 24 hours: Intake & Output 03/03/21 03/04/21 03/05/21 03/06/21 11:59 11:59 11:59 11:59 Intake Total 1440 / 1440 1590 / 1590 1080 / 1080 900 / 900 Output Total 2875 / 2875 1800 / 2500 1670 / 1670 250 / 250 Balance -1435 / -1435 -210 / -910 -590 / -590 650 / 650 Weight 185 lb 15.993 oz 182 lb 7 oz 182 lb 6.991 oz Microbiology Reports for the Last 24 Hours: Microbiology 03/02/21 00:55 Sputum - Expectorated Sputum Gram Stain - Final 03/02/21 00:55 Sputum - Expectorated Sputum Sputum Culture - Preliminary Gram Negative Rods Gram Negative Rods#2 - Constitutional no acute distress, chronically ill appearing - *Routine HEENT Exam Head: Present: normocephalic Eye: Present: PERRL ENT: Present: mucous membranes moist - *Routine Neck Exam Present: supple. Absent: lymphadenopathy - *Routine Respiratory Exam Present: crackles - *Routine Cardiovascular Exam Present: RRR - *Routine Abdominal Exam Present: soft, normoactive bowel sounds. Absent: tenderness - *Routine Extremities Exam Absent: cyanosis, clubbing, edema - *Routine Skin Exam Present: warm. Absent: rash - *Routine Neurological Exam Present: alert, oriented X3 Assessment and Plan (1) Acute exacerbation of CHF (congestive heart failure) Status: Acute Category: Medical Code(s): I50.9 - Heart failure, unspecified (2) CAD (coronary artery disease) Status: Chronic Qualifiers: Category: Medical Code(s): I25.10 - Atherosclerotic heart disease of [place] coronary artery without angina pectoris (3) COPD (chronic obstructive pulmonary disease) Status: Chronic Qualifiers: COPD type: unspecified COPD Qualified Code(s): J44.9 - Chronic obstructive pulmonary disease, unspecified Category: Medical Code(s): J44.9 - Chronic obstructive pulmonary disease, unspecified (4) HHD (hypertensive heart disease) Status: Chronic Qualifiers: Heart failure presence: with heart failure Heart failure type: other Qualified Code(s): I11.0 - Hypertensive heart disease with heart failure; I50.89 - Other heart failure Category: Medical Code(s): I11.9 - Hypertensive heart disease without heart failure (5) HLD (hyperlipidemia) Status: Chronic Qualifiers: Hyperlipidemia type: mixed hyperlipidemia Qualified Code(s): E78.2 - Mixed hyperlipidemia Category: Medical Code(s): E78.5 - Hyperlipidemia, unspecified (6) Obesity (BMI 30-39.9) Status: Acute Category: Medical Code(s): E66.9 - Obesity, unspecified (7) Anemia Status: Acute Qualifiers: Anemia type: unspecified type Qualified Code(s): D64.9 - Anemia, unspecified Category: Medical Code(s): D64.9 - Anemia, unspecified (8) Anxiety Status: Acute Category: Medical Code(s): F41.9 - Anxiety disorder, unspecified (9) Hypokalemia Status: Acute Category: Medical Code(s): E87.6 - Hypokalemia (10) Diastolic CHF Status: Acute Category: Medical Code(s): I50.30 - Unspeci
--- NOTE | 2021-03-06 13:19 | HMH.PULMPN ---
Internal Medicine - PN: Subj *Date: 03/06/21 *Time: 13:19 Interval history: No acute respite events overnight. Patient continued to remain on minimal oxygen supplementation. Exam - Constitutional Constitutional:: Present: no acute distress, comfortable - HENMT Exam HENMT: Present: normocephalic, atraumatic - Eye Exam Eyes:: Present: normal appearance both eyes and related structures - Neck Exam Neck:: Present: normal visual inspection - Respiratory Exam Respiratory:: Present: able to speak in complete sentences, no respiratory distress, decreased breath sounds, rales, rhonchi - Cardiovascular Exam Cardiac:: Present: S1, S2 - GI Exam GI:: Present: soft - Skin Exam Skin: Present: warm, no rash - Neurological Exam Neurological: Present: alert, awake - Extremities Exam Extremities: Present: no cyanosis, no clubbing, no edema - Psychiatric Exam Psychiatric: Present: normal affect Assessment and Plan (1) Acute exacerbation of CHF (congestive heart failure) Status: Acute Category: Medical Code(s): I50.9 - Heart failure, unspecified (2) CAD (coronary artery disease) Status: Chronic Qualifiers: Category: Medical Code(s): I25.10 - Atherosclerotic heart disease of [place] coronary artery without angina pectoris (3) COPD (chronic obstructive pulmonary disease) Status: Chronic Qualifiers: COPD type: unspecified COPD Qualified Code(s): J44.9 - Chronic obstructive pulmonary disease, unspecified Category: Medical Code(s): J44.9 - Chronic obstructive pulmonary disease, unspecified (4) HHD (hypertensive heart disease) Status: Chronic Qualifiers: Heart failure presence: with heart failure Heart failure type: other Qualified Code(s): I11.0 - Hypertensive heart disease with heart failure; I50.89 - Other heart failure Category: Medical Code(s): I11.9 - Hypertensive heart disease without heart failure (5) HLD (hyperlipidemia) Status: Chronic Qualifiers: Hyperlipidemia type: mixed hyperlipidemia Qualified Code(s): E78.2 - Mixed hyperlipidemia Category: Medical Code(s): E78.5 - Hyperlipidemia, unspecified (6) Obesity (BMI 30-39.9) Status: Acute Category: Medical Code(s): E66.9 - Obesity, unspecified (7) Anemia Status: Acute Qualifiers: Anemia type: unspecified type Qualified Code(s): D64.9 - Anemia, unspecified Category: Medical Code(s): D64.9 - Anemia, unspecified (8) Anxiety Status: Acute Category: Medical Code(s): F41.9 - Anxiety disorder, unspecified (9) Hypokalemia Status: Acute Category: Medical Code(s): E87.6 - Hypokalemia (10) Diastolic CHF Status: Acute Category: Medical Code(s): I50.30 - Unspecified diastolic (congestive) heart failure - Assessment and plan all Dx Assessment and Plan for all problems:: #Chronic hypoxic respiratory failure: #Bronchiectasis: 75 Y/O with history of bronchiectasis, MRSA and Pseudomonas pneumonia presented to the hospital with worsening respiratory distress. Patient recently was here at [facility] in December 2020 during which she was managed for loculated pleural effusion with TPA dornase however transferred over the weekend to an outside hospital for CT surgery evaluation at that hospital patient has a second chest tube placed and eventually improved. 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 Patient was brought to the [facility] hospital on this visit again with complaining of worsening respiratory distress, worsening cough and productive phlegm. Chest x-ray on this admission with improving left lower lobe pulmonary infiltrate. No obvious other airspace disease noted. Patient has remained on minimal oxygen requirements at 1 to 2 L saturations maintained at 94% above. Respiratory status is at baseline. Patient overall appears to be more weak and debilitated than her prior visit that is contributing to her
--- NOTE | 2021-03-06 13:45 | PC.NURSE ---
Attempted CPT vest therapy with Patient at this time. Pt is having a blood transfusion at this time, blood is being transfused into her port. It will be under direct pressure and have lots of vibrating movement for the duration of the vest treatment. Discussed with RN and will administer vest treatment once the transfusion is complete.
--- NOTE | 2021-03-06 13:54 | HMH.PHACONS ---
- Pharmacy Consult Date: 03/06/21 Time: 13:54 Referring provider: LOLLY DONAHUE APRN Reason for Consult:: VANCOMYCIN DOSING Allergies and ADEs:: Allergies Allergy/AdvReac Type Severity Reaction Status Date / Time hydrocodone [HYDROCODONE] Allergy Severe dizziness, Verified 01/11/21 16:08 n/v codeine [CODEINE] Allergy Intermediate dizziness. Verified 01/11/21 16:08 n/v Sulfa (Sulfonamide AdvReac Mild n/v Verified 01/11/21 16:08 Antibiotics) [SULFA (SULFONAMIDE ANTIBIOTICS)] Home Medications:: Home Medications Medication Instructions Recorded Confirmed Type Pilocarpine HCl [Salagen] 7.5 mg PO TID 05/24/17 02/27/21 History Pantoprazole Sodium [Protonix 40mg 40 mg PO DAILY 10/28/18 02/27/21 History tablet] guaiFENesin [Mucinex] 1,200 mg PO BID 05/25/19 02/27/21 History Acetaminophen 500 mg PO BID 08/12/20 02/27/21 History Albuterol Sulfate [Albuterol 2 puffs IH Q6HP PRN 08/12/20 02/27/21 History Sulfate Hfa] Ferrous Sulfate [Ferrous Sulfate 325 mg PO DAILY 08/12/20 02/27/21 History 325mg Tablet] Hydrocortisone 5 mg PO HS 08/21/20 02/27/21 History Montelukast Sodium [Singulair] 10 mg PO HS 08/21/20 02/27/21 History Atorvastatin Calcium [Lipitor 40mg 40 mg PO HS 10/05/20 02/27/21 History Tablet*] Lactulose [Lactulose 20gm/30ml 20 gm PO DAILYP PRN 10/12/20 02/27/21 History Oral Soln] Loratadine [Allerclear] 10 mg PO DAILY 10/12/20 02/27/21 History Trazodone HCl 100 mg PO HS 10/12/20 02/27/21 History Acetaminophen 500 mg PO Q6HP PRN 12/09/20 02/27/21 History Calcium Carbonate [Tums] 300 mg PO Q6HP PRN 12/09/20 02/27/21 History L.acidoph,Paracasei, B.lactis 1 cap PO DAILY 12/09/20 02/27/21 History [Probiotic] Trospium Chloride 20 mg PO DAILY 12/10/20 02/27/21 History guaiFENesin [Robitussin 200mg/10mL 200 mg PO Q6HP PRN 12/10/20 02/27/21 History Syrup Udc] Tiotropium Rand [Spiriva 2 inh INHALATION HS 12/30/20 02/27/21 History Respimat] Cholecalciferol (Vitamin D3) 1,000 unit PO DAILY 12/31/20 02/27/21 History [Vitamin D3 1,000 Unit Tab] Hydroxychloroquine Sulfate 200 mg PO DAILY 12/31/20 02/27/21 History [Plaquenil 200mg tablet] Sennosides [Senna] 8.6 mg PO DAILY 12/31/20 02/27/21 History Buspirone HCl [Buspar 10mg 10 mg PO BID 02/16/21 02/27/21 History tablet] alprazolam 0.25 mg tablet 0.25 mg PO BID PRN #60 tab 02/17/21 02/27/21 Rx Acetylcysteine [Acetylcysteine 20% 1 ml IH QID 02/27/21 02/27/21 History 1mL syr (Resp Therapy)] Epoetin Daquan-Epbx [Retacrit] 10,000 unit IM WEEKLY 02/27/21 02/27/21 History Gabapentin 300 mg PO BID 02/27/21 02/27/21 History Hydrocortisone 10 mg PO DAILY 02/27/21 02/27/21 History Ipratropium/Albuterol Sulfate 3 ml IH QID 02/27/21 02/27/21 History [Duoneb 3mL neb] Loperamide HCl [Imodium 2 mg 4 mg PO Q12HP PRN 02/27/21 02/27/21 History capsule] Megestrol Acetate [Megestrol 800 mg PO DAILY 02/27/21 02/27/21 History Acetate 400mg/10mL Udc] Nystatin [Nystatin Susp 500,000 5 ml PO QID 02/27/21 02/27/21 History Units/5mL Udc] Promethazine HCl 12.5 mg PO Q6HP PRN 02/27/21 02/27/21 History Sucralfate [Carafate 1gm Tab] 1 gm PO QID 02/27/21 02/27/21 History ondansetron HCL [Zofran 4mg Tab*] 4 mg PO Q4HP PRN 02/27/21 02/27/21 History Height: 1.65 m Weight: 82.752 kg Laboratory Results:: Laboratory Results - last 24 hr 03/06/21 05:50: WBC 7.7, RBC 2.71 L, Hgb 8.2 L, Hct 26.1 L, MCV 96.1, MCH 30.4, MCHC 31.6 L, RDW 14.1, Plt Count 242, MPV 6.6 L, Neut % (Auto) 71.9, Lymph % (Auto) 15.8, [place] % (Auto) 8.0, Eos % (Auto) 4.0, Baso % (Auto) 0.2, Neut # (Auto) 5.5, Lymph # (Auto) 1.2, [place] # (Auto) 0.6, Eos # (Auto) 0.3, Baso # (Auto) 0.0 03/06/21 05:50: Sodium 133 L, Potassium 4.9, Chloride 91 L, Carbon Dioxide 36 H, Anion Gap 10.9, BUN 37 H, Creatinine 2.00 H, Estimated Creat Clear 33, Estimated GFR 24 L, Est GFR ( Amer) 30 L, Glucose 100, Calcium 8.0 L 03/06/21 10:00: Blood Type O Positive, Antibody S
--- NOTE | 2021-03-06 15:37 | PC.NURSE ---
Patient is on telel and on 1L NC. Patient is assist times two. Purewick in use. Patient has been ordered 2 units PRBC's. One unit completed and second unit will be started during shift. Pulmonology came to see patient, bronchoscopy is planned for 03/07, patient to be NPO after midnight. Percussion vest to be started to help clear patient's lungs. Bed in lowest position and phone and call light in reach.
--- NOTE | 2021-03-06 18:37 | PC.NURSE ---
Unable to do the vest due to patient recieving blood through her port.
[2021-03-06 22:58] LABS: Hematocrit 33.7 % (37.0-47.0)
[2021-03-06 23:11] LABS: Hemoglobin 10.9 g/dL (12.2-16.2)
[2021-03-07] VITALS (28 sets, daily range): BP systolic 90–114; BP diastolic 40–70; PULSE 63–110; RESP 14–26; TEMP 36.2–37; O2SAT 88–100; BMI 29.8
--- NOTE | 2021-03-07 06:39 | PC.NURSE ---
RESP CARE NOTE: Pt refuses to allow CPT vest at this time. She states, she may do it later. Will monitor patients needs and wishes.
--- NOTE | 2021-03-07 09:10 | HMH.ACPN2 ---
Internal Medicine - PN: Subj *Date: 03/07/21 *Time: 13:11 Interval history: 75-year-old female patient sitting up in bed oxygenation 92% on 2 L nasal cannula. Patient does answer yes or no questions, denies any concerns or needs at present. Daughter at bedside explained reason for antibiotics to be stopped yesterday per pulmonology and may be restarted after bronchoscopy today. Exam Vital signs and Labs for Last 24 Hours: Temp Pulse Resp BP Pulse Ox 98.6 F 63 19 91/42 L 92 L 03/07/21 08:00 03/07/21 08:00 03/07/21 08:00 03/07/21 08:00 03/07/21 08:00 Laboratory Results - last 24 hr 03/06/21 10:00: Blood Type O Positive, Antibody Screen Negative, Crossmatch (AHG) See Detail 03/06/21 22:30: Hgb 10.9 L D, Hct 33.7 L I & O for Last 24 hours: Intake & Output 03/04/21 03/05/21 03/06/21 03/07/21 23:59 23:59 23:59 23:59 Intake Total 1440 / 1440 1020 / 1020 610 / 610 60 / 60 Output Total 2200 / 2200 270 / 270 1150 / 1150 900 / 900 Balance -760 / -760 750 / 750 -540 / -540 -840 / -840 Weight 182 lb 7 oz 182 lb 6.991 oz 179 lb Microbiology Reports for the Last 24 Hours: Microbiology 03/02/21 00:55 Sputum - Expectorated Sputum Gram Stain - Final 03/02/21 00:55 Sputum - Expectorated Sputum Sputum Culture - Final Acinetobacter baumannii - Constitutional no acute distress, chronically ill appearing - *Routine HEENT Exam Head: Present: normocephalic Eye: Present: EOMI ENT: Present: mucous membranes moist - *Routine Neck Exam Present: trachea midline. Absent: tracheal deviation - *Routine Respiratory Exam Present: rhonchi, crackles. Absent: accessory muscle use - *Routine Cardiovascular Exam Present: RRR - *Routine Abdominal Exam Present: soft, normoactive bowel sounds. Absent: tenderness, firm - *Routine Extremities Exam Present: edema, full ROM, pulses intact. Absent: cyanosis, clubbing - *Routine Skin Exam Present: intact, dry, warm. Absent: cyanosis, erythema - *Routine Neurological Exam Present: alert. Absent: motor deficit - Routine Psychiatric Exam Present: normal affect, unable to assess Assessment and Plan (1) Acute exacerbation of CHF (congestive heart failure) Status: Acute Category: Medical Code(s): I50.9 - Heart failure, unspecified (2) CAD (coronary artery disease) Status: Chronic Qualifiers: Category: Medical Code(s): I25.10 - Atherosclerotic heart disease of [place] coronary artery without angina pectoris (3) COPD (chronic obstructive pulmonary disease) Status: Chronic Qualifiers: COPD type: unspecified COPD Qualified Code(s): J44.9 - Chronic obstructive pulmonary disease, unspecified Category: Medical Code(s): J44.9 - Chronic obstructive pulmonary disease, unspecified (4) HHD (hypertensive heart disease) Status: Chronic Qualifiers: Heart failure presence: with heart failure Heart failure type: other Qualified Code(s): I11.0 - Hypertensive heart disease with heart failure; I50.89 - Other heart failure Category: Medical Code(s): I11.9 - Hypertensive heart disease without heart failure (5) HLD (hyperlipidemia) Status: Chronic Qualifiers: Hyperlipidemia type: mixed hyperlipidemia Qualified Code(s): E78.2 - Mixed hyperlipidemia Category: Medical Code(s): E78.5 - Hyperlipidemia, unspecified (6) Obesity (BMI 30-39.9) Status: Acute Category: Medical Code(s): E66.9 - Obesity, unspecified (7) Anemia Status: Acute Qualifiers: Anemia type: unspecified type Qualified Code(s): D64.9 - Anemia, unspecified Category: Medical Code(s): D64.9 - Anemia, unspecified (8) Anxiety Status: Acute Category: Medical Code(s): F41.9 - Anxiety disorder, unspecified (9) Hypokalemia Status: Acute Category: Medical Code(s): E87.6 - Hypokalemia (10) Diastolic CHF Status: Acute Category: Medical Code(s): I50.30 - Unspecified diasto
--- NOTE | 2021-03-07 09:15 | HMH.PULMPN ---
Internal Medicine - PN: Subj *Date: 03/07/21 *Time: 14:11 Interval history: Patient denies any new respiratory complaints. Exam - Constitutional Constitutional:: Present: no acute distress, comfortable - HENMT Exam HENMT: Present: normocephalic - Eye Exam Eyes:: Present: normal appearance both eyes and related structures - Neck Exam Neck:: Present: normal visual inspection - Respiratory Exam Respiratory:: Present: able to speak in complete sentences, no respiratory distress, rhonchi - Cardiovascular Exam Cardiac:: Present: S1, S2 - GI Exam GI:: Present: soft - Skin Exam Skin: Present: warm, no rash - Neurological Exam Neurological: Present: alert, awake - Extremities Exam Extremities: Present: no cyanosis, no clubbing, no edema Assessment and Plan (1) Acute exacerbation of CHF (congestive heart failure) Status: Acute Category: Medical Code(s): I50.9 - Heart failure, unspecified (2) CAD (coronary artery disease) Status: Chronic Qualifiers: Category: Medical Code(s): I25.10 - Atherosclerotic heart disease of [place] coronary artery without angina pectoris (3) COPD (chronic obstructive pulmonary disease) Status: Chronic Qualifiers: COPD type: unspecified COPD Qualified Code(s): J44.9 - Chronic obstructive pulmonary disease, unspecified Category: Medical Code(s): J44.9 - Chronic obstructive pulmonary disease, unspecified (4) HHD (hypertensive heart disease) Status: Chronic Qualifiers: Heart failure presence: with heart failure Heart failure type: other Qualified Code(s): I11.0 - Hypertensive heart disease with heart failure; I50.89 - Other heart failure Category: Medical Code(s): I11.9 - Hypertensive heart disease without heart failure (5) HLD (hyperlipidemia) Status: Chronic Qualifiers: Hyperlipidemia type: mixed hyperlipidemia Qualified Code(s): E78.2 - Mixed hyperlipidemia Category: Medical Code(s): E78.5 - Hyperlipidemia, unspecified (6) Obesity (BMI 30-39.9) Status: Acute Category: Medical Code(s): E66.9 - Obesity, unspecified (7) Anemia Status: Acute Qualifiers: Anemia type: unspecified type Qualified Code(s): D64.9 - Anemia, unspecified Category: Medical Code(s): D64.9 - Anemia, unspecified (8) Anxiety Status: Acute Category: Medical Code(s): F41.9 - Anxiety disorder, unspecified (9) Hypokalemia Status: Acute Category: Medical Code(s): E87.6 - Hypokalemia (10) Diastolic CHF Status: Acute Category: Medical Code(s): I50.30 - Unspecified diastolic (congestive) heart failure (11) Bilateral pneumonia Status: Acute Category: Medical Code(s): J18.9 - Pneumonia, unspecified organism - Assessment and plan all Dx Assessment and Plan for all problems:: #Chronic hypoxic respiratory failure: #Bronchiectasis: 75 Y/O with history of bronchiectasis, MRSA and Pseudomonas pneumonia presented to the hospital with worsening respiratory distress. Patient recently was here at [facility] in December 2020 during which she was managed for loculated pleural effusion with TPA dornase however transferred over the weekend to an outside hospital for CT surgery evaluation at that hospital patient has a second chest tube placed and eventually improved. 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 Patient was brought to the [facility] hospital on this visit again with complaining of worsening respiratory distress, worsening cough and productive phlegm. Chest x-ray on this admission with improving left lower lobe pulmonary infiltrate. No obvious other airspace disease noted. Patient has remained on minimal oxygen requirements at 1 to 2 L saturations maintained at 94% above. Respiratory status is at baseline. Patient overall appears to be more weak and debilitated than her prior visit that is contributing to her symptoms. Sputum cultures on this a
--- NOTE | 2021-03-07 12:02 | PC.NURSE ---
Pt down to OR by bed @ 1200
--- NOTE | 2021-03-07 12:13 | HMH.ANESCL ---
[facility] Anesthesia Checklist - Patient Identification Patient Identification: Arm Band - Structural Data Admitted From: Inpatient Planned Operative Procedure/s: Bronchoscopy Consent for Planned Operative Procedure(s) Verified: Yes - NPO Status Verified Time NPO: 00:00 - Airway Assessment C-Spine Mobility Assessed: Yes TMJ Mobility Assessed: Yes Dentition: Poor Dentition (Informed patient and family risks of damage to teeth. They verbalized understanding) - Neurological Assessment Level of Consciousness: Awake Hx Seizures: No Numbness or tingling in extremities: No - Anesthesia Plan Anesthesia Risk discussed: Yes Anesthesia Plan: Verified ASA Class: IV Anesthesia Type: General [facility] History I have reviewed the patient's past medical history: Yes Medical History: Reports:: Anxiety, Arrhythmia, Atrial Fibrillation, Cardiomyopathy, Congestive Heart Failure, Chronic Obstructive Pulmonary Disease (COPD), Congenital Heart Disease, Coronary Artery Disease, Deep Vein Thrombosis, Gastroesophageal Reflux Disease(GERD), Home Oxygen, Hyperlipidemia, Hypertension, MRSA, Myocardial Infarction, Palpitations, Valvular Heart Disease Denies:: Cancer, Diabetes Mellitus Type 1, Diabetes Mellitus Type 2, Internal Pacemaker *Have you ever received a pneumonia vaccine?: No (Has received in the last five years) *Have you received a flu vaccine this season?: Yes Other Medical History: Reports: Anemia, Arthritis, Cataracts, Fibromyalgia, Hypothyroidism, Sinus Problems, Thyroid Disease Anesthesia experience/problems:: Difficulty waking up Laterality Cases: Left: Arthroscopy Hip, Right: Carpal Tunnel Release Other Surgeries: Yes: Appendectomy, Cardiac Catheterization, Cholecystectomy, Colonoscopy, Hysterectomy-Total, Tubal Ligation, Other. No: Pacemaker Amputation: No Fractures: Yes - *Social History Last grade of school completed: High school graduate Smoking Status: Former smoker Tobacco Type: cigarettes # Packs/Day (cigarettes): 0 #Yrs smoked (if former smoker): 40 Alcohol Intake: never Substance Use Type: denies use *Occupational Status:: retired Housing: [employer] Household Members: other *Travel in the last 8 weeks: None - Psychiatric History Pschychiatric History:: Reports:: Anxiety Family Hx:: No significant family history
--- NOTE | 2021-03-07 13:21 | XR_ITS ---
PROCEDURE: XR CHEST PORTABLE CLINICAL HISTORY: BRONCH COMPARISON: CR XR CHEST PORTABLE from 03/01/2021 CR XR CHEST PORTABLE from 03/03/2021 CR XR CHEST PORTABLE from 03/05/[address] CHEST WO CON from 03/06/2021 FINDINGS: Mild cardiomegaly without failure. Consolidation is present in the right upper lobe consistent with pneumonia. This has progressed since 03/06/2021. There is minimal blunting of the left CP angle. A right subclavian MediPort catheter is present with tip in the region the SVC. Degenerative changes of the shoulders IMPRESSION: Worsening right upper lobe pneumonia Dictated by: Carlos Starks MD 03/07/2021 15:59 Carlos Starks MD in OV 03/07/2021 15:59
--- NOTE | 2021-03-07 13:28 | P.PN_ITS ---
[facility] Anesthesia Record Part I Intake, IV Amount: 500 Estimated blood loss (mL): 10 Urine output (mL): 0 Blood Pressure: 113/60 SaO2: 94 Pulse Rate: 104 Respiratory Rate: 18 Temperature: 98.3 F Patient is:: Drowsy, Oral/Nasal airway Stable to PACU at:: 13:25
--- NOTE | 2021-03-07 13:55 | PC.NURSE ---
Received report from FABIANA Troncoso @ this time
--- NOTE | 2021-03-07 14:05 | SUR.PHASEI ---
1354- detailed report called to abby bach on [facility].
--- NOTE | 2021-03-07 14:12 | HMH.BRONCH ---
- Procedure: Date: 03/07/21 Patient Date of :: 1945 Procedure Performed:: Bronchoscopy with airway exam and transbronchial biopsy Indications:: Recurrent pneumonia Performing Provider:: Elio Reddy MD Referring Provider:: Dr. Hanson Sedation:: General anesthesia Procedure:: Bronchoscopy with airway exam and transbronchial biopsy: Therapeutic bronchoscopy with the ET tube and airways were examined up to subsegmental bronchi. Copious amount of mucopurulent secretions were noted from in the right upper lobe and right main bronchus. Significant airway inflammation and erythema noted predominantly in the right middle lobe lower lobe and left lower lobe bronchus. No obvious bleeding or mucous plugging noted. BAL was performed in the right upper lobe along with transbronchial biopsies. Total of 60 cc of normal saline was instilled with a return of mucoid nonbloody 35 cc sample. BAL was sent for bacterial fungal AFB stain and culture along with cell count and differential. Transbronchial biopsies were sent for bacterial fungal AFB stain and culture normal saline along with cytopathology in formalin. Pictures of BOTH the airway examination and fluoroscopy were captured. Patient tolerated the procedure well no bleeding noted after the biopsy. Findings:: Please see the procedure note Recommendations:: Please see the procedure note and progress note from today Complications:: None Estimated blood obtained (mL): 10
--- NOTE | 2021-03-07 15:37 | PC.NURSE ---
Addendum entered by Maricarmen Portillo RN 03/07/21 18:42: Pt much more awake tonight. She is sitting up watching TV. A&O x4. She ate about 25% of her tray. She is on 2 L O2 per nasal cannula, sat > 90%. Original Note: Resting since coming back to floor. O2 weaned to 2 L per nasal cannula. Resp even, non-labored. She is total care. Turned Q2H. Oral care provided. Incontinent of bladder, pure-wick in place. Urine clear, yellow. No BM this shift. Stage II noted to coccyx. Dressing in place. Daughter remains @ bedside. Called placed to pulm clinic to see when MD would be up to see pt and her daughter. MD still w/ pt @ this time, Linda advises MD to be up once he is done. Bed alarm in place. Call nanette w/in reach.
--- NOTE | 2021-03-07 19:42 | PC.NURSE ---
Patient refused vest at this time. Neb of Albuterol given following with Sodium chloride.
[2021-03-08] VITALS (10 sets, daily range): BP systolic 95–151; BP diastolic 35–69; PULSE 71–100; RESP 20–22; TEMP 36.6–37.5; O2SAT 88–98
[2021-03-08 06:21] LABS: Basophils % 0.3 % (0.1-2.0); Eosinophils # 0.2 K/mm3 (0.0-0.4); Eosinophils % 2.3 % (0.1-12.0); Hematocrit 33.8 % (37.0-47.0); Hemoglobin 10.4 g/dL (12.2-16.2); Lymphocytes # 0.8 K/mm3 (0.7-4.5); Mean Corpuscular HGB Conc 30.7 g/dL (31.8-35.4); Mean Corpuscular Hemoglobin 29.5 pg (27.0-31.2); Mean Platelet Volume 6.8 fl (7.4-10.4); Monocytes # 0.6 K/mm3 (0.1-1.0); Monocytes % 8.3 % (1.7-9.3); Neutrophils # 5.9 K/mm3 (1.8-7.8); Neutrophils % 78.1 % (37.0-80.0); Platelet Count 259 K/mm3 (142-424); Red Blood Count 3.52 M/mm3 (4.20-5.40); Red Cell Distribution Width 14.5 % (11.5-17.5); White Blood Count 7.6 K/mm3 (4.8-10.8)
[2021-03-08 06:23] LABS: Chloride 98 mmol/L (98-107)
[2021-03-08 06:24] LABS: Potassium 4.1 mmoL/L (3.5-5.1); Sodium 139 mmol/L (136-145)
[2021-03-08 06:26] LABS: Blood Urea Nitrogen 37 mg/dl (7-17); Creatinine Clearance Estimated 40 mL/min (50-200); Estimated Glomerular Filt Rate 32 ml/min (>60); GFR (African American) 38 ML/MIN (>60)
[2021-03-08 06:27] LABS: Anion Gap 13.1 mEq/L (5-15); Calcium 8.3 mg/dl (8.4-10.2); Carbon Dioxide 32 mmol/L (22.0-30.0); Glucose 139 mg/dl (74-100)
--- NOTE | 2021-03-08 09:04 | INFXCTL.NOTE ---
Notified that patient has Acinetobacter Baumanni in sputum, called charge nurse and instructed that patient be placed in contact precautions.
[2021-03-08 10:26] LABS: Coronavirus 19, PCR Not Detected (NotDetected); Influenza A, PCR Not Detected (NotDetected); Influenza B, PCR Not Detected (NotDetected)
--- NOTE | 2021-03-08 11:51 | HMH.PULMPN ---
Internal Medicine - PN: Subj *Date: 03/08/21 *Time: 11:51 Interval history: No acute respiratory vents overnight. Patient denies any worsening respiratory symptoms. Exam - Constitutional Constitutional:: Present: no acute distress, comfortable - HENMT Exam HENMT: Present: normocephalic, cushingoid faces - Eye Exam Eyes:: Present: normal appearance both eyes and related structures - Neck Exam Neck:: Present: normal visual inspection - Respiratory Exam Respiratory:: Present: able to speak in complete sentences, no respiratory distress, rhonchi. Absent: wheezing - Cardiovascular Exam Cardiac:: Present: S1, S2 - GI Exam GI:: Present: soft - Skin Exam Skin: Present: warm, no rash - Neurological Exam Neurological: Present: alert, awake - Extremities Exam Extremities: Present: no cyanosis, no clubbing, no edema Assessment and Plan (1) Acute exacerbation of CHF (congestive heart failure) Status: Acute Category: Medical Code(s): I50.9 - Heart failure, unspecified (2) CAD (coronary artery disease) Status: Chronic Qualifiers: Category: Medical Code(s): I25.10 - Atherosclerotic heart disease of [place] coronary artery without angina pectoris (3) COPD (chronic obstructive pulmonary disease) Status: Chronic Qualifiers: COPD type: unspecified COPD Qualified Code(s): J44.9 - Chronic obstructive pulmonary disease, unspecified Category: Medical Code(s): J44.9 - Chronic obstructive pulmonary disease, unspecified (4) HHD (hypertensive heart disease) Status: Chronic Qualifiers: Heart failure presence: with heart failure Heart failure type: other Qualified Code(s): I11.0 - Hypertensive heart disease with heart failure; I50.89 - Other heart failure Category: Medical Code(s): I11.9 - Hypertensive heart disease without heart failure (5) HLD (hyperlipidemia) Status: Chronic Qualifiers: Hyperlipidemia type: mixed hyperlipidemia Qualified Code(s): E78.2 - Mixed hyperlipidemia Category: Medical Code(s): E78.5 - Hyperlipidemia, unspecified (6) Obesity (BMI 30-39.9) Status: Acute Category: Medical Code(s): E66.9 - Obesity, unspecified (7) Anemia Status: Acute Qualifiers: Anemia type: unspecified type Qualified Code(s): D64.9 - Anemia, unspecified Category: Medical Code(s): D64.9 - Anemia, unspecified (8) Anxiety Status: Acute Category: Medical Code(s): F41.9 - Anxiety disorder, unspecified (9) Hypokalemia Status: Acute Category: Medical Code(s): E87.6 - Hypokalemia (10) Diastolic CHF Status: Acute Category: Medical Code(s): I50.30 - Unspecified diastolic (congestive) heart failure (11) Bilateral pneumonia Status: Acute Category: Medical Code(s): J18.9 - Pneumonia, unspecified organism - Assessment and plan all Dx Assessment and Plan for all problems:: #Chronic hypoxic respiratory failure: #Bronchiectasis: #Hospital-acquired pneumonia 75 Y/O with history of bronchiectasis, MRSA and Pseudomonas pneumonia presented to the hospital with worsening respiratory distress. Patient recently was here at [facility] in December 2020 during which she was managed for loculated pleural effusion with TPA dornase however transferred over the weekend to an outside hospital for CT surgery evaluation at that hospital patient has a second chest tube placed and eventually improved. 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 Patient was brought to the [facility] hospital on this visit again with complaining of worsening respiratory distress, worsening cough and productive phlegm. Chest x-ray on this admission with improving left lower lobe pulmonary infiltrate. No obvious other airspace disease noted. Sputum cultures on this admission are growing gram-negative rods, Acinetobacter, resistant to levofloxacin ceftriaxone but sensitive to cefepime. patient prior sputum cultu
--- NOTE | 2021-03-08 12:17 | HMH.DCSUM ---
General - General Admission date:: 02/27/21 Discharge date: 03/08/21 HPI HPI: pt was sent from [facility] with sob over the last few days - pt has sig past hx of copd - recent pneumonia requiring chest tube and tertiary care center- his is a 75-year-old female presenting to the emergency department with some difficulty breathing. [facility] with some troubles breathing and low oxygen saturations. When EMS originally got there the patient was having saturations in the 70s. She does have a longstanding history of CAD and CHF. Patient states that her shortness of breath has been gradually worsening over the last 2 weeks or so. States that is mainly on exertion. Today she was having it at rest. She is also had some swelling in the lower extremities bilaterally. Nontender. Patient complains of mild cough. Nonproductive in nature. She is not having any chest pain or palpitations at this time. She denies any hemoptysis. Patient does not have any headache or change in vision. No focal weakness. No fevers or chills. No abdominal pain or vomiting. pt was admitted for eval and treatment Hospital Course Hospital Course: Laboratory Tests 02/27/21 02/27/21 02/27/21 11:15 11:19 12:00 WBC 9.8 RBC 3.24 L Hgb 10.1 L Hct 31.5 L MCV 97.3 MCH 31.3 H MCHC 32.2 RDW 14.6 Plt Count 214 MPV 7.6 Neut % (Auto) 80.6 H Lymph % (Auto) 11.9 [place] % (Auto) 4.2 Eos % (Auto) 3.0 Baso % (Auto) 0.3 Neut # (Auto) 7.9 H Lymph # (Auto) 1.2 [place] # (Auto) 0.4 Eos # (Auto) 0.3 Baso # (Auto) 0.0 Specimen Source Cancelled O2 % Cancelled ABG pH Cancelled ABG pCO2 Cancelled ABG pO2 Cancelled ABG HCO3 Cancelled ABG Total CO2 Cancelled ABG O2 Saturation Cancelled ABG Base Excess Cancelled Carlos Test Cancelled VBG pH 7.30 L VBG pCO2 43.0 VBG pO2 57.6 H VBG HCO3 20.6 L VBG Total CO2 21.9 L VBG O2 Saturation 87.0 H VBG Base Excess -5.9 L Vent Rate Cancelled Tidal Volume Cancelled PEEP Cancelled Sodium Potassium Chloride Carbon Dioxide Anion Gap BUN Creatinine Estimated Creat Clear Estimated GFR Est GFR ( Amer) Glucose Calcium Total Bilirubin AST ALT Alkaline Phosphatase Troponin I C-Reactive Protein NT-Pro-B Natriuret Pep Total Protein Albumin Globulin Albumin/Globulin Ratio Procalcitonin SARS-CoV-2 (PCR) Influenza A Untype (PCR) Influenza Type B (PCR) Blood Type Antibody Screen Crossmatch ([facility]) 02/27/21 02/27/21 02/27/21 12:00 13:00 17:00 WBC RBC Hgb Hct MCV MCH MCHC RDW Plt Count MPV Neut % (Auto) Lymph % (Auto) [place] % (Auto) Eos % (Auto) Baso % (Auto) Neut # (Auto) Lymph # (Auto) Finney # (Auto) Eos # (Auto) Baso # (Auto) Specimen Source O2 % ABG pH ABG pCO2 ABG pO2 ABG HCO3 ABG Total CO2 ABG O2 Saturation ABG Base Excess Carlos Test VBG pH VBG pCO2 VBG pO2 VBG HCO3 VBG Total CO2 VBG O2 Saturation VBG Base Excess Vent Rate Tidal Volume PEEP Sodium 141 Potassium 3.2 L Chloride 113 H Carbon Dioxide 23 Anion Gap 8.2 BUN 20 H Creatinine 1.00 Estimated Creat Clear 72 Estimated GFR 54 L Est GFR ( Amer) 66 Glucose 98 Calcium 7.9 L Total Bilirubin 0.2 AST 14 ALT 11 L Alkaline Phosphatase 70 Troponin I < 0.01 < 0.01 C-Reactive Protein NT-Pro-B Natriuret Pep 573 H Total Protein 5.6 L Albumin 2.9 L Globulin 2.7 Albumin/Globulin Ratio 1.1 Procalcitonin SARS-CoV-2 (PCR) Not detected Influenza A Untype (PCR) Not detected Influenza Type B (PCR) Not detected Blood Type Antibody Screen Crossmatch ([facility]) 02/27/21 02/28/21 02/28/21 20:03
--- NOTE | 2021-03-08 12:51 | HMH.ACPN2 ---
Internal Medicine - PN: Subj *Date: 03/08/21 *Time: 08:00 Interval history: pt states she is feeling better. daughter at bedside. pt on 02 per [address] Exam Vital signs and Labs for Last 24 Hours: Temp Pulse Resp BP Pulse Ox 98.4 F 100 H 21 122/69 88 L 03/08/21 08:00 03/08/21 08:00 03/08/21 08:00 03/08/21 08:00 03/08/21 08:00 Laboratory Results - last 24 hr 03/08/21 06:00: WBC 7.6, RBC 3.52 L D, Hgb 10.4 L, Hct 33.8 L, MCV 96.0, MCH 29.5, MCHC 30.7 L, RDW 14.5, Plt Count 259, MPV 6.8 L, Neut % (Auto) 78.1, Lymph % (Auto) 11.0, [place] % (Auto) 8.3, Eos % (Auto) 2.3, Baso % (Auto) 0.3, Neut # (Auto) 5.9, Lymph # (Auto) 0.8, [place] # (Auto) 0.6, Eos # (Auto) 0.2, Baso # (Auto) 0.0 03/08/21 06:00: Sodium 139, Potassium 4.1, Chloride 98, Carbon Dioxide 32 H, Anion Gap 13.1, BUN 37 H, Creatinine 1.60 H, Estimated Creat Clear 40, Estimated GFR 32 L, Est GFR ( Amer) 38 L D, Glucose 139 H, Calcium 8.3 L 03/08/21 09:45: SARS-CoV-2 (PCR) Not detected, Influenza A Untype (PCR) Not detected, Influenza Type B (PCR) Not detected I & O for Last 24 hours: Intake & Output 03/06/21 03/07/21 03/08/21 03/09/21 11:59 11:59 11:59 11:59 Intake Total 900 / 900 1032 / 1032 1412 / 1412 Output Total 850 / 850 1200 / 1800 2500 / 2500 Balance 50 / 50 -168 / -768 -1088 / -1088 Weight 179 lb Microbiology Reports for the Last 24 Hours: Microbiology 03/07/21 Unknown Bronchial Washings - Right Upper Lobe Gram Stain - Final 03/02/21 00:55 Sputum - Expectorated Sputum Gram Stain - Final 03/02/21 00:55 Sputum - Expectorated Sputum Sputum Culture - Final Acinetobacter baumannii - Constitutional no acute distress, chronically ill appearing - *Routine HEENT Exam Head: Present: normocephalic Eye: Present: PERRL ENT: Present: mucous membranes moist - *Routine Neck Exam Present: supple. Absent: lymphadenopathy - *Routine Respiratory Exam Present: CTA bilaterally - *Routine Cardiovascular Exam Present: RRR - *Routine Abdominal Exam Present: soft, normoactive bowel sounds. Absent: tenderness - *Routine Extremities Exam Absent: cyanosis, clubbing, edema - *Routine Skin Exam Comments: stage 2 to coccyx - *Routine Neurological Exam Present: alert, oriented X3 Assessment and Plan (1) Acute exacerbation of CHF (congestive heart failure) Status: Acute Category: Medical Code(s): I50.9 - Heart failure, unspecified (2) CAD (coronary artery disease) Status: Chronic Qualifiers: Category: Medical Code(s): I25.10 - Atherosclerotic heart disease of [place] coronary artery without angina pectoris (3) COPD (chronic obstructive pulmonary disease) Status: Chronic Qualifiers: COPD type: unspecified COPD Qualified Code(s): J44.9 - Chronic obstructive pulmonary disease, unspecified Category: Medical Code(s): J44.9 - Chronic obstructive pulmonary disease, unspecified (4) HHD (hypertensive heart disease) Status: Chronic Qualifiers: Heart failure presence: with heart failure Heart failure type: other Qualified Code(s): I11.0 - Hypertensive heart disease with heart failure; I50.89 - Other heart failure Category: Medical Code(s): I11.9 - Hypertensive heart disease without heart failure (5) HLD (hyperlipidemia) Status: Chronic Qualifiers: Hyperlipidemia type: mixed hyperlipidemia Qualified Code(s): E78.2 - Mixed hyperlipidemia Category: Medical Code(s): E78.5 - Hyperlipidemia, unspecified (6) Obesity (BMI 30-39.9) Status: Acute Category: Medical Code(s): E66.9 - Obesity, unspecified (7) Anemia Status: Acute Qualifiers: Anemia type: unspecified type Qualified Code(s): D64.9 - Anemia, unspecified Category: Medical Code(s): D64.9 - Anemia, unspecified (8) Anxiety Status: Acute Category: Medical Code(s): F41.9 - Anxiety disorder, unspecified (9) Hypokalemia Status: Acute Category
--- NOTE | 2021-03-08 13:57 | HMH.OTEV ---
OT Inpatient Evaluation Rehab OT IP Evaluation Start: 03/08/21 12:47 Freq: ONCE Status: Complete Protocol: Document 03/08/21 13:48 [facility] (Rec: 03/08/21 13:57 [facility] [id number]) Rehab OT IP Assessment Subjective History Pt oriented x 3 on arrival. Pt agreeable to engage in therapy evaluation. Daughter present during evaluation. Pt was admitted on 02/27/21 via ED due to SOB/difficulty breathing. Pt has a past medical history Anxiety, Arrhythmia, Atrial Fibrillation, Cardiomyopathy, Congestive Heart Failure, Chronic Obstructive Pulmonary Disease (COPD), Congenital Heart Disease, Coronary Artery Disease, Deep Vein Thrombosis , Gastroesophageal Reflux Disease(GERD), Home Oxygen, Hyperlipidemia, Hypertension, MRSA, Myocardial Infarction, Palpitations, Valvular Heart Disease. Pt was living in bed bug exterminator care at [facility]. Pt reports prior to hospitalization she was able to dress and feed herself independently. However, pt was dependent upon staff for bed baths and IADLs. Pt was able to transfer herself using stand/pivot from surface to surface; pt used wheelchair majority of the time. Subjective I just feel weak. Pt resting in chair on arrival . Pt agreeable to engage in therapy evaluation. Pt stood from chair with min/mod assist x 2. Pt only able to stand for ~30 seconds before requesting to sit back down due to fatigue. Objective Patient Orientation Person,Place,Birthday Upper Extremity Gross ROM Mod Limitation 50% Shoulder ROM Limitations Muscle Weakness Elbow ROM Limitations Muscle Weakness Wrist Limitations of Range of Motion Muscle Weakness Transfer Training Sit/Stand/
--- NOTE | 2021-03-08 14:32 | HMH.PTEV ---
Physical Therapy Evaluation Rehab PT IP Evaluation Start: 03/08/21 12:47 Freq: ONCE Status: Active Protocol: Document 03/08/21 14:03 [facility] (Rec: 03/08/21 14:32 [facility] [id number]) Subjective/History History History This is the initial evaluation for Marietta Ruiz. Pt is a 75 y /o female admitted from [facility] to [facility] for SOA. Pt has significant past hx of COPD and recent pneumonia requiring chest tube and tertiary care center. Pt is on supplemental O2 currently. Pt'- note done by Frances Hope, SPT Subjective Subjective Pt states she is very tired today. Pt reports she was at a nursing facility before admission to [facility] and she didn' t walk much. Pt states she always felt too weak to walk far. Pt states when she did walk small distances that she had to use a w/c sometimes but not always. Pt reports that she was independent in all ADL 's except bathing which she got in bed from nursing staff. Rehab PT IP Eval Objective Appearance Patient Behavior Appropriate,Cooperative, Fatigued Patient Orientation Person,Place,Time,Situation Difficulty following instructions none Speech Pattern Clear,Appropriate,Coherent Ambulation Patient Able to Ambulate No Balance Ability to Arise Able, uses arms to help Sitting Balance Steady, safe Standing Balance Steady, wide stance Dynamic Sitting Balance Ability Good Dynamic Standing Balance Ability Fair Transfers Chair Transfer Ability Minimal x 2 (25% assist) Sit to Stand Chair Transfer Ability Minimal x 2 (25% assist) Rehab PT IP prob,goals,plan Problems Date of Evaluation: 03/08/21 PT IP Problems Transfers,Gait,Balance,Self care Rehab Potential Rehab Potential Good Equipment Needs Assistive Devices Rolling / Wheeled Walker Plan PT Intervention Plan Transfers,Gait,Balance,Self care,Safety,Therapeutic Exercise PT Plan Frequency BID Duration LOS Discharge Goals Bed Transfer Ability
[2021-03-09] VITALS: BP 110/69; PULSE 77; PULSE 80; RESP 20; TEMP 36.7; O2SAT 96
--- NOTE | 2021-03-09 03:03 | PC.NURSE ---
No acute changes t/o shift. Pt remains confused, A/O to name and date. Pt remains on 2L NC with O2 saturation >90%. Pt denies any pain t/o shift. Purewick in place, no BM this shift. Pt has rested well all night. VSS, call light within reach, will continue to monitor.
[2021-03-09 04:00] VITALS: BP 114/67; PULSE 81; PULSE 90; RESP 20; TEMP 36.6; O2SAT 94
[2021-03-09 04:52] VITALS: BMI 29.8
[2021-03-09 06:14] LABS: Basophils % 0.4 % (0.1-2.0); Eosinophils # 0.6 K/mm3 (0.0-0.4); Eosinophils % 7.3 % (0.1-12.0); Hemoglobin 10.9 g/dL (12.2-16.2); Lymphocytes # 0.8 K/mm3 (0.7-4.5); Lymphocytes % 9.6 % (10-50); Mean Corpuscular HGB Conc 30.3 g/dL (31.8-35.4); Mean Corpuscular Hemoglobin 29.2 pg (27.0-31.2); Mean Corpuscular Volume 96.3 fl (81-99); Mean Platelet Volume 6.8 fl (7.4-10.4); Monocytes # 0.5 K/mm3 (0.1-1.0); Monocytes % 6.6 % (1.7-9.3); Neutrophils # 5.9 K/mm3 (1.8-7.8); Platelet Count 273 K/mm3 (142-424); Red Blood Count 3.73 M/mm3 (4.20-5.40); Red Cell Distribution Width 14.3 % (11.5-17.5); White Blood Count 7.8 K/mm3 (4.8-10.8)
[2021-03-09 06:16] LABS: Chloride 99 mmol/L (98-107); Sodium 138 mmol/L (136-145)
[2021-03-09 06:19] LABS: Blood Urea Nitrogen 32 mg/dl (7-17); Carbon Dioxide 31 mmol/L (22.0-30.0); Creatinine Clearance Estimated 46 mL/min (50-200); Estimated Glomerular Filt Rate 37 ml/min (>60); GFR (African American) 45 ML/MIN (>60)
[2021-03-09 06:20] LABS: Calcium 8.5 mg/dl (8.4-10.2); Glucose 112 mg/dl (74-100)
[2021-03-09 08:00] VITALS: BP 111/65; PULSE 86; PULSE 90; RESP 18; TEMP 37.1; O2SAT 95
--- NOTE | 2021-03-09 08:59 | PC.NURSE ---
0845-DR CHOU AND Jordan DONAHUE APRN ASKED THIS RN TO HAVE RESPIRATORY DRAW ABG AND APPLY BIPAP AT THIS TIME.
[2021-03-09 09:16] LABS: ABG Base Excess 1.7 mmol/L (-2.4-2.3); ABG HCO3 26.9 mmhg (22.0-26.0); ABG Oxygen Saturation 88 % (90-100); ABG PCO2 46.7 mmhg (35.0-45.0); ABG PH 7.38 mmol/L (7.35-7.45); ABG PO2 57.2 mmhg (80-100); ABG TCO2 28.3 mmhg (23-27)
[2021-03-09 09:17] LABS: Allen's Test Patient Unable; Source Left Radial
--- NOTE | 2021-03-09 09:21 | HMH.PULMPN ---
Internal Medicine - PN: Subj *Date: 03/09/21 *Time: 13:12 Interval history: No acute respiratory vents overnight. Patient remains off oxygen. Exam - Constitutional Constitutional:: Present: no acute distress, comfortable - HENMT Exam HENMT: Present: normocephalic, atraumatic - Eye Exam Eyes:: Present: normal appearance both eyes and related structures - Neck Exam Neck:: Present: normal visual inspection - Respiratory Exam Respiratory:: Present: able to speak in complete sentences, no respiratory distress, normal respiratory effort, rhonchi - Cardiovascular Exam Cardiac:: Present: S1, S2 - GI Exam GI:: Present: soft - Skin Exam Skin: Present: warm, no rash - Neurological Exam Neurological: Present: alert, awake - Extremities Exam Extremities: Present: no cyanosis, no clubbing, no edema Assessment and Plan (1) Acute exacerbation of CHF (congestive heart failure) Status: Acute Category: Medical Code(s): I50.9 - Heart failure, unspecified (2) CAD (coronary artery disease) Status: Chronic Qualifiers: Category: Medical Code(s): I25.10 - Atherosclerotic heart disease of [place] coronary artery without angina pectoris (3) COPD (chronic obstructive pulmonary disease) Status: Chronic Qualifiers: COPD type: unspecified COPD Qualified Code(s): J44.9 - Chronic obstructive pulmonary disease, unspecified Category: Medical Code(s): J44.9 - Chronic obstructive pulmonary disease, unspecified (4) HHD (hypertensive heart disease) Status: Chronic Qualifiers: Heart failure presence: with heart failure Heart failure type: other Qualified Code(s): I11.0 - Hypertensive heart disease with heart failure; I50.89 - Other heart failure Category: Medical Code(s): I11.9 - Hypertensive heart disease without heart failure (5) HLD (hyperlipidemia) Status: Chronic Qualifiers: Hyperlipidemia type: mixed hyperlipidemia Qualified Code(s): E78.2 - Mixed hyperlipidemia Category: Medical Code(s): E78.5 - Hyperlipidemia, unspecified (6) Obesity (BMI 30-39.9) Status: Acute Category: Medical Code(s): E66.9 - Obesity, unspecified (7) Anemia Status: Acute Qualifiers: Anemia type: unspecified type Qualified Code(s): D64.9 - Anemia, unspecified Category: Medical Code(s): D64.9 - Anemia, unspecified (8) Anxiety Status: Acute Category: Medical Code(s): F41.9 - Anxiety disorder, unspecified (9) Hypokalemia Status: Acute Category: Medical Code(s): E87.6 - Hypokalemia (10) Diastolic CHF Status: Acute Category: Medical Code(s): I50.30 - Unspecified diastolic (congestive) heart failure (11) Bilateral pneumonia Status: Acute Category: Medical Code(s): J18.9 - Pneumonia, unspecified organism - Assessment and plan all Dx Assessment and Plan for all problems:: #Chronic hypoxic respiratory failure: #Bronchiectasis: #Hospital-acquired pneumonia 75 Y/O greater than [id number] smoking history carries a prior diagnosis of COPD, history of bronchiectasis, MRSA and Pseudomonas pneumonia presented to the hospital with worsening respiratory distress. Patient recently was here at in December 2020 during which she was managed for loculated pleural effusion with TPA dornase however transferred over the weekend to an outside hospital for CT surgery evaluation at that hospital patient has a second chest tube placed and eventually improved. 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 Patient was brought to the [facility] hospital on this visit again with complaining of worsening respiratory distress, worsening cough and productive phlegm. Chest x-ray on this admission with improving left lower lobe pulmonary infiltrate. No obvious other airspace disease noted. Sputum cultures on this admission are growing gram-negative rods, Acinetobacter, resistant to levofloxacin ceftriaxone b
[2021-03-09 10:53] VITALS: O2SAT 94
--- NOTE | 2021-03-09 11:02 | PC.NURSE ---
attempted to call report to [facility] but there was no answer will call back in a few minutes
[2021-03-09 12:00] VITALS: BP 113/63; PULSE 83; RESP 16; TEMP 36.9; O2SAT 95
== END 2021-03-09 12:37 | DRG 264 ==
LOC: ER 13:36 → 2ND 13:59
PROVIDERS: Family Medicine; Internal Medicine Pulmonary Disease; Nurse Practitioner Family; Admitting Provider Emergency Medicine; Emergency Provider Emergency Medicine; PCP Emergency Medicine; Visit Provider Emergency Medicine
PROC: 0BBC8ZX Excision of Right Upper Lung Lobe, Via Natural or Artificial Opening Endoscopic, Diagnostic (ICD-10-PCS; principal; 2021-03-07 12:00)
DX: I11.0 Hypertensive heart disease with heart failure (principal); J18.9 Pneumonia, unspecified organism; I50.33 Acute on chronic diastolic (congestive) heart failure; J44.0 Chronic obstructive pulmonary disease with (acute) lower respiratory infection; J96.11 Chronic respiratory failure with hypoxia; I42.9 Cardiomyopathy, unspecified; I48.91 Unspecified atrial fibrillation; Z99.81 Dependence on supplemental oxygen; Z79.899 Other long term (current) drug therapy; Z88.8 Allergy status to other drugs, medicaments and biological substances; J20.9 Acute bronchitis, unspecified; I25.10 Atherosclerotic heart disease of native coronary artery without angina pectoris; M19.90 Unspecified osteoarthritis, unspecified site; E03.9 Hypothyroidism, unspecified; Z86.718 Personal history of other venous thrombosis and embolism; K21.9 Gastro-esophageal reflux disease without esophagitis; I25.2 Old myocardial infarction; E78.2 Mixed hyperlipidemia; Z87.891 Personal history of nicotine dependence; E66.9 Obesity, unspecified; Z68.29 Body mass index [BMI] 29.0-29.9, adult; D64.9 Anemia, unspecified; F41.9 Anxiety disorder, unspecified; E87.6 Hypokalemia; R00.0 Tachycardia, unspecified; Y95 Nosocomial condition; J47.9 Bronchiectasis, uncomplicated
CPT/HCPCS: 31628; 31624; 36415; 71045; 71250; 76000; 80048; 80053; 82803; 83880; 84145; 84484; 85014; 85018; 85025; 86140; 86850; 87070; 87077; 87102; 87116; 87186; 87205; 87206; 89051; 93005; 93306; 94640; 94660; 94760; 94761; 96374; 97161; 97166; 99284; C9803; J2405; J2704; P9016; U0003; U0005

== ENCOUNTER 2021-03-12 11:44 | Observation (INO) | payer MEDICARE, OTHER, SELFPAY ==
[2021-03-12 11:44] VITALS: BP 120/72; PULSE 106; RESP 20; O2SAT 98; BMI 28.3
[2021-03-12 11:49] VITALS: BMI 29.2
--- NOTE | 2021-03-12 11:50 | CT_ITS ---
PROCEDURE INFORMATION: Exam: CT Head Without Contrast Exam date and time: 03/12/2021 11:50 AM Age: 75 years old Clinical indication: Altered mental status/memory loss; Other: Yelling but no communication; Additional info: Ams// patient is yelling but non verbal and not able to communicate-- brain w/o TECHNIQUE: Imaging protocol: Computed tomography of the head without contrast. 3D rendering (Not supervised by radiologist): MIP and/or 3D reconstructed images were created by the technologist. Radiation optimization: All CT scans at this facility use at least one of these dose optimization techniques: automated exposure control; mA and/or kV adjustment per patient size (includes targeted exams where dose is matched to clinical indication); or iterative reconstruction. COMPARISON: CT HEAD/BRAIN WO CON 01/05/2021 9:47 AM FINDINGS: Brain: Prominent sulci. Patchy hypodensity of the cerebral white matter which are nonspecific but likely secondary to microangiopathic changes. Cerebral ventricles: The ventricles are prominent secondary to diffuse volume loss/atrophy. Paranasal sinuses: Visualized sinuses are unremarkable. No fluid levels. Mastoid air cells: Visualized mastoid air cells are well aerated. Bones/joints: Unremarkable. No acute fracture. Soft tissues: Unremarkable. IMPRESSION: Chronic age related changes but no evidence of acute intracranial pathology.
--- NOTE | 2021-03-12 12:05 | PC.NURSE ---
called rt to notify of vbg order
[2021-03-12 12:11] LABS: Basophils # 0.1 K/mm3 (0-0.2); Basophils % 0.8 % (0.1-2.0); Eosinophils # 0.5 K/mm3 (0.0-0.4); Eosinophils % 4.4 % (0.1-12.0); Hematocrit 36.6 % (37.0-47.0); Hemoglobin 11.6 g/dL (12.2-16.2); Lymphocytes # 1.1 K/mm3 (0.7-4.5); Lymphocytes % 9.8 % (10-50); Mean Corpuscular HGB Conc 31.6 g/dL (31.8-35.4); Mean Corpuscular Hemoglobin 29.9 pg (27.0-31.2); Mean Corpuscular Volume 94.7 fl (81-99); Mean Platelet Volume 8.3 fl (7.4-10.4); Monocytes # 0.7 K/mm3 (0.1-1.0); Monocytes % 6.2 % (1.7-9.3); Neutrophils # 8.9 K/mm3 (1.8-7.8); Neutrophils % 78.8 % (37.0-80.0); Platelet Count 419 K/mm3 (142-424); Red Blood Count 3.86 M/mm3 (4.20-5.40); Red Cell Distribution Width 14.8 % (11.5-17.5); White Blood Count 11.3 K/mm3 (4.8-10.8)
[2021-03-12 12:16] LABS: Chloride 100 mmol/L (98-107); Potassium 4.7 mmoL/L (3.5-5.1); Sodium 139 mmol/L (136-145)
[2021-03-12 12:18] LABS: Blood Urea Nitrogen 44 mg/dl (7-17); Creatinine Clearance Estimated 38 mL/min (50-200); Estimated Glomerular Filt Rate 32 ml/min (>60); GFR (African American) 38 ML/MIN (>60)
[2021-03-12 12:19] LABS: Alanine Aminotransferase 18 U/L (12-78); Albumin Level 3.2 g/dl (3.5-5.0); Albumin/Globulin Ratio 0.9 (1.1-1.8); Alkaline Phosphatase 85 U/L (38-126); Anion Gap 18.7 mEq/L (5-15); Aspartate Amino Transferase 32 U/L (14-36); Bilirubin,Total 0.5 mg/dl (0.2-1.3); Carbon Dioxide 25 mmol/L (22.0-30.0); Globulin 3.7 g/dL (1.3-3.2); Glucose 94 mg/dl (74-100); Total Protein,Serum 6.9 g/dl (6.3-8.2)
[2021-03-12 12:20] LABS: VBG Base Excess -1.6 mmol/L (-2.4-2.3); VBG HCO3 23.6 mmol/L (23-30); VBG Oxygen Saturation 98.1 % (50-70); VBG PCO2 41.2 mmol/L (35-51); VBG PH 7.38 mmol/L (7.31-7.41); VBG PO2 112.9 mmol/L (28-40); VBG Total CO2 24.9 mmol/L (23-27)
--- NOTE | 2021-03-12 13:32 | HMH.EDGENADL ---
ED Disposition Clinical Impression: Altered mental status Qualifiers: Altered mental status type: delirium Qualified Code(s): R41.0 - Disorientation, unspecified Disposition: Admitted As Inpatient Condition on Discharge: Fair - Critical Care Critical Care Time: No Attestation: On 03/12/21, the high probability of a clinically significant, sudden or life threatening deterioration of the following system(s) required my full and direct attention, intervention and personal management. The time I documented below is in addition to time spent performing reported procedures but includes the following listed in this critical care notation. Medical Decision Making - Julius Inquiry Pt receiving controlled substance: No Vital Signs: 03/12/21 11:44 Pulse Rate [Left Radial] 106 H Respiratory Rate 20 Blood Pressure [Right Arm] 120/72 Blood Pressure Mean [Right Arm] 88 Blood Pressure Source [Right Arm] Automatic Cuff Blood Pressure Position [Right Arm] Sitting 02 Sat by Pulse Oximetry 98 Oxygen Delivery Method Nasal Cannula Oxygen Flow Rate (LPM) 3 - Lab Data Lab Results 03/12/21 12:03: WBC 11.3 H, RBC 3.86 L, Hgb 11.6 L, Hct 36.6 L, MCV 94.7, MCH 29.9, MCHC 31.6 L, RDW 14.8, Plt Count 419 D, MPV 8.3, Neut % (Auto) 78.8, Lymph % (Auto) 9.8 L, Kemper % (Auto) 6.2, Eos % (Auto) 4.4, Baso % (Auto) 0.8, Neut # (Auto) 8.9 H, Lymph # (Auto) 1.1, Kem[place] # (Auto) 0.7, Eos # (Auto) 0.5 H, Baso # (Auto) 0.1 03/12/21 12:03: Sodium 139, Potassium 4.7, Chloride 100, Carbon Dioxide 25, Anion Gap 18.7 H, BUN 44 H, Creatinine 1.60 H, Estimated Creat Clear 38, Estimated GFR 32 L, Est GFR ( Amer) 38 L, Glucose 94, Calcium 9.0, Total Bilirubin 0.5, AST 32, ALT 18, Alkaline Phosphatase 85, Total Protein 6.9 D, Albumin 3.2 L, Globulin 3.7 H, Albumin/Globulin Ratio 0.9 L 03/12/21 12:07: VBG pH 7.38, VBG pCO2 41.2, VBG pO2 112.9 H, VBG HCO3 23.6, VBG Total CO2 24.9, VBG O2 Saturation 98.1 H, VBG Base Excess -1.6 Result diagrams: 03/12/21 12:03 03/12/21 12:03 Orders (Tests/Meds): ED MEDICATIONS Generic Name Dose Route Start Last Admin Trade Name Freq PRN Reason Stop Dose Admin Miscellaneous 1 each 03/12/21 15:45 Vancomycin Consult Request * 04/11/21 15:44 CONSULT PHARMACY DARLING Medical Decision Narrative: Patient is a 75-year-old female with a past medical history of chronic respiratory failure related to severe COPD on home oxygen who presents for evaluation of progressive worsening of mental status over the last 2 to 3 days. She is in no acute distress, afebrile and hemodynamically stable, nontoxic in appearance. Physical exam demonstrates comfortable appearing female with no increased work of breathing, soft nontender abdomen, no extremity edema with normal peripheral perfusion, disorientation, no verbal interaction, not following commands but protecting her airway. Differential diagnosis includes but is not limited to acute intracranial abnormality, sepsis, electrolyte abnormality, dehydration, urinary tract infection. Will obtain broad laboratory analysis, CT scan of the head without IV contrast, chest x-ray and reassess clinically. Reassessment: Patient continues to be in no acute distress and hemodynamically stable. Mental status is unchanged. Laboratory analysis unremarkable, chest x-ray as well as CT scan of the head did not demonstrate any acute abnormalities. Susceptibilities from pulmonary lavage recently was reviewed, demonstrating susceptibility to vancomycin for MRSA. Will switch antibiotic to vancomycin. Care of the patient was discussed with primary care physician group, and will admit to the hospital for continued observation, monitoring of alteration in mental status. General Adult HPI - General Chief complaint: Altered Mental Status Stated complaint: ams Time Seen by Provider: 03/12/21 12:15 Mode of Arrival: EMS Limitations: No Limitations Description of Symptoms (Recalled from ER Triage Doc. by
--- NOTE | 2021-03-12 14:07 | XR_ITS ---
PROCEDURE INFORMATION: Exam: XR Chest Exam date and time: 03/12/2021 2:07 PM Age: 75 years old Clinical indication: Condition or disease; Other: Concern for pneumonia per er staff; Additional info: AMS, concern for pneumonia TECHNIQUE: Imaging protocol: XR of the chest. Views: 1 view. COMPARISON: SD XR CHEST AP 03/07/2021 1:45 PM FINDINGS: Tubes, catheters and devices: Right-sided jeannette catheter is present. Lungs: Mildly increased interstitial markings with questionable patchy residual infiltrates in the right upper and bilateral lower lungs. Pleural spaces: Unremarkable. No pleural effusion. No pneumothorax. Heart/Mediastinum: Unremarkable. No cardiomegaly. Bones/joints: Mild degenerative changes of the shoulder joints. Chronic appearing deformity involving the left shoulder. Resection/absence of the right distal clavicle. IMPRESSION: 1. Mildly increased interstitial markings with questionable patchy residual infiltrates in the right upper and bilateral lower lungs. 2. Remainder of findings as described above.
[2021-03-12 16:29] LABS: Coronavirus 19, PCR Not Detected (NotDetected); Influenza A, PCR Not Detected (NotDetected); Influenza B, PCR Not Detected (NotDetected); Microscopic, Urine URINE MICROSCOPIC (MICROSCOPIC)
[2021-03-12 16:38] LABS: Appearance,Urine CLEAR (Clear); Bilirubin,Urine Negative (Negative); Blood, Urine 2+ (Negative); Color,Urine YELLOW (Yellow); Glucose,Urine (UA) Negative (Negative); Ketones,Urine 1+ (Negative); Leukocyte Esterase,Urine TRACE (Negative); Nitrate,Urine Negative (Negative); Protein,Urine 2+ (Negative); Specific Gravity, Urine >= 1.030 (1.005-1.030); Urobilinogen,Urine 0.2 EU/dl (0.2)
[2021-03-12 16:50] LABS: Bacteria,Urine 1+ /lpf
[2021-03-12 18:00] VITALS: BP 144/75; PULSE 102; RESP 24; TEMP 36.7; O2SAT 97; BMI 21.6
[2021-03-12 18:30] VITALS: O2SAT 97
[2021-03-12 18:52] VITALS: BP 144/75; PULSE 102; RESP 24; TEMP 36.7; O2SAT 97
--- NOTE | 2021-03-12 19:28 | PC.NURSE ---
1855- Spoke to Sruthi Bourne RN in ED regarding pt's orders. RN stated that MD Torres only wants the vancomycin consult and NPO diet orders in. Spoke to pt's daughter Beti. Beti is concerned that pt's symptoms are rooted from an allergic reaction to cefepime and she is concerned about POC for pt and does not agree with any end-of-life treatment at this time. Daughter said she will be back in the morning for MD rounds
[2021-03-12 20:00] VITALS: BP 143/74; PULSE 63; RESP 18; TEMP 36.4; O2SAT 98
[2021-03-12 22:07] VITALS: PULSE 100
[2021-03-13] VITALS (14 sets, daily range): BP systolic 114–155; BP diastolic 48–83; PULSE 100–114; RESP 18–24; TEMP 36.2–37.1; O2SAT 94–98; BMI 21.6
--- NOTE | 2021-03-13 06:43 | PC.NURSE ---
Patient withdrawals from pain, she has outbursts of yelling. Patient has slept all this RN's shift. She has been Q2H turns and oral care. Patient lungs sounds are coarse crackles when auscultated. Patient bowel sounds are active. Hayes is draining urine. Bed alarm is on for safety purposes. Patient is on 3LNC. Patient at times will slightly open her eyes when her name is said. VSS, call light is within reach, will continue to monitor.
--- NOTE | 2021-03-13 07:24 | HMH.PHAVTE ---
[facility] Pharmacy VTE Monitoring - Patient Demographics Admission date: 03/12/21 Report Date: 03/13/21 Time: 07:24 Allergies/Adverse Reactions: Patient Allergies hydrocodone [HYDROCODONE] Allergy (Severe, Verified 01/11/21 16:08) dizziness, n/v codeine [CODEINE] Allergy (Intermediate, Verified 01/11/21 16:08) dizziness. n/v Sulfa (Sulfonamide Antibiotics) [SULFA (SULFONAMIDE ANTIBIOTICS)] Adverse Reaction (Mild, Verified 01/11/21 16:08) n/v Height: 1.89 m Weight: 77.281 kg Patient Problems: Current Active Problems Altered mental status (Acute) - VTE Risk Labs: VTE Related Lab Results Hgb 11.6 g/dL (12.2-16.2) L 03/12/21 12:03 Hct 36.6 % (37.0-47.0) L 03/12/21 12:03 Plt Count 419 K/mm3 (142-424) D 03/12/21 12:03 BUN 44 mg/dl (7-17) H 03/12/21 12:03 Creatinine 1.60 mg/dl (0.52-1.04) H 03/12/21 12:03 Estimated Creat Clear 38 mL/min (50-200) 03/12/21 12:03 - Prophylaxis VTE Prophylaxis Ordered?: Yes Types of VTE Prophylaxis: TEDS Knee High Location of Applied Device: Bilateral Lower Extremeties
--- NOTE | 2021-03-13 07:58 | HMH.PHAINT ---
MEDICATION RECONCILIATION COMPLETE USING HALF-WAY MAR AND PREVIOUS DISCHARGE
[2021-03-13 09:19] LABS: ABG Base Excess -3.1 mmol/L (-2.4-2.3); ABG HCO3 21.5 mmhg (22.0-26.0); ABG Oxygen Saturation 98 % (90-100); ABG PH 7.41 mmol/L (7.35-7.45); ABG PO2 103.2 mmhg (80-100); ABG TCO2 22.6 mmhg (23-27); Lactate Arterial 1.2 mmol/L (0.4-2.0)
[2021-03-13 09:20] LABS: Oxygen 3 %
[2021-03-13 09:21] LABS: Allen's Test acceptable; Source Right Radial
--- NOTE | 2021-03-13 09:37 | HMH.PHACONS ---
- Pharmacy Consult Date: 03/13/21 Time: 09:37 Referring provider: DR. REID Reason for Consult:: VANCOMYCIN DOSING Allergies and ADEs:: Allergies Allergy/AdvReac Type Severity Reaction Status Date / Time hydrocodone [HYDROCODONE] Allergy Severe dizziness, Verified 01/11/21 16:08 n/v codeine [CODEINE] Allergy Intermediate dizziness. Verified 01/11/21 16:08 n/v Sulfa (Sulfonamide AdvReac Mild n/v Verified 01/11/21 16:08 Antibiotics) [SULFA (SULFONAMIDE ANTIBIOTICS)] Home Medications:: Home Medications Medication Instructions Recorded Confirmed Type Pilocarpine HCl [Salagen] 7.5 mg PO TID 05/24/17 03/12/21 History Pantoprazole Sodium [Protonix 40mg 40 mg PO DAILY 10/28/18 03/12/21 History tablet] guaiFENesin [Mucinex] 1,200 mg PO BID 05/25/19 03/12/21 History Acetaminophen 500 mg PO BID 08/12/20 03/12/21 History Albuterol Sulfate [Albuterol 2 puffs IH Q6HP PRN 08/12/20 03/12/21 History Sulfate Hfa] Ferrous Sulfate [Ferrous Sulfate 325 mg PO DAILY 08/12/20 03/12/21 History 325mg Tablet] Hydrocortisone 5 mg PO HS 08/21/20 03/12/21 History Montelukast Sodium [Singulair] 10 mg PO HS 08/21/20 03/12/21 History Atorvastatin Calcium [Lipitor 40mg 40 mg PO HS 10/05/20 03/12/21 History Tablet*] Lactulose [Lactulose 20gm/30ml 20 gm PO DAILYP PRN 10/12/20 03/12/21 History Oral Soln] Loratadine [Allerclear] 10 mg PO DAILY 10/12/20 03/12/21 History Trazodone HCl 100 mg PO HS 10/12/20 03/12/21 History Acetaminophen 500 mg PO Q6HP PRN 12/09/20 03/12/21 History Calcium Carbonate [Tums] 300 mg PO Q6HP PRN 12/09/20 03/12/21 History L.acidoph,Paracasei, B.lactis 1 cap PO DAILY 12/09/20 03/12/21 History [Probiotic] Trospium Chloride 20 mg PO DAILY 12/10/20 03/12/21 History guaiFENesin [Robitussin 200mg/10mL 200 mg PO Q6HP PRN 12/10/20 03/12/21 History Syrup Udc] Tiotropium [place] [Spiriva 2 inh INHALATION HS 12/30/20 03/12/21 History Respimat] Cholecalciferol (Vitamin D3) 1,000 unit PO DAILY 12/31/20 03/12/21 History [Vitamin D3 1,000 Unit Tab] Hydroxychloroquine Sulfate 200 mg PO DAILY 12/31/20 03/12/21 History [Plaquenil 200mg tablet] Sennosides [Senna] 8.6 mg PO DAILY 12/31/20 03/12/21 History Buspirone HCl [Buspar 10mg 10 mg PO BID 02/16/21 03/12/21 History tablet] alprazolam 0.25 mg tablet 0.25 mg PO BID PRN #60 tab 02/17/21 03/12/21 Rx Acetylcysteine [Acetylcysteine 20% 1 ml IH QID 02/27/21 03/12/21 History 1mL syr (Resp Therapy)] Epoetin Daquan-Epbx [Retacrit] 10,000 unit IM WEEKLY 02/27/21 03/12/21 History Gabapentin 300 mg PO BID 02/27/21 03/12/21 History Hydrocortisone 10 mg PO DAILY 02/27/21 03/12/21 History Ipratropium/Albuterol Sulfate 3 ml IH QID 02/27/21 03/12/21 History [Duoneb 3mL neb] Loperamide HCl [Imodium 2 mg 4 mg PO Q12HP PRN 02/27/21 03/12/21 History capsule] Megestrol Acetate [Megestrol 800 mg PO DAILY 02/27/21 03/12/21 History Acetate 400mg/10mL Udc] Promethazine HCl 12.5 mg PO Q6HP PRN 02/27/21 03/12/21 History Sucralfate [Carafate 1gm Tab] 1 gm PO QID 02/27/21 03/12/21 History ondansetron HCL [Zofran 4mg Tab*] 4 mg PO Q4HP PRN 02/27/21 03/12/21 History morphine concentrate 100 mg/5 mL 5 mg PO Q4H PRN #30 ml 03/10/21 03/12/21 Rx (20 mg/mL) oral solution Cefepime HCl [Maxipime 2gm Vial] 2 gm IV Q12H 03/12/21 03/12/21 History Furosemide [Lasix 20mg tablet] 20 mg PO BIDL 03/12/21 03/12/21 History Spironolactone [Aldactone 25mg 50 mg PO BID 03/12/21 03/12/21 History Tab] Height: 1.65 m Weight: 77.281 kg Laboratory Results:: Laboratory Results - last 24 hr 03/12/21 12:03: WBC 11.3 H, RBC 3.86 L, Hgb 11.6 L, Hct 36.6 L, MCV 94.7, MCH 29.9, MCHC 31.6 L, RDW 14.8, Plt Count 419 D, MPV 8.3, Neut % (Auto) 78.8, Lymph % (Auto) 9.8 L, Baldwin % (Auto) 6.2, Eos % (Auto) 4.4, Baso % (Auto) 0.8, Neut # (Auto) 8.9 H, Lymph # (Auto) 1.1, Baldwin # (Auto) 0.7, Eos # (Auto) 0.5 H, Baso # (Auto) 0.1 03/12/21 12:03: Sodium 139, Pota
--- NOTE | 2021-03-13 12:00 | SW/DCPLANNER ---
Addendum entered by [facility] 03/16/21 11:16: AD w/ Hospice has evaluated and stated that patient is not safe for transport back to [facility]/Care Center and has requested that patient continue inpatient status. AD will re-evaluate this patient tomorrow morning. Addendum entered by [facility] 03/16/21 09:44: I have expressed to family this AM that patient could possibly require transfer back to [facility] based on Hospice evaluation today. AD w/ [facility] will be here this AM to evaluate patient. Addendum entered by Yudelka Rockport 03/15/21 11:51: A.D. with [facility] is present evaluating this patient. Addendum entered by [facility] 03/14/21 15:15: This patient will now be admitted as Hospice Inpatient w/ [facility]. I have explained the importance to patients family that if there are no changes with patient a discharge plan will have to be made. I will follow up with this patient, family and [facility]. I have updated Kadi with [facility] and Jo Ann packer/ [facility]. Addendum entered by [facility] 03/14/21 13:55: Patients family is now requesting an evaluation from [facility] and contacted Melanie Packer with [facility]. Melanie called and stated that she will be at [facility] soon to evaluate this patient and present available options. I will continue to follow up with Hospice and patients family. Addendum entered by [facility] 03/14/21 12:07: Kadi with [facility] evaluated this patient and stated that patient does not meet inpatient criteria at this time. After a lengthy conversation with patients family: patient will return to [facility] today after COVID swab is resulted and will admit under [facility] once returning. I have updated patients family, Jo Ann w/ [facility] and [facility]. Addendum entered by Yudelka Rockport 03/14/21 09:54: Isa Tang with [facility] stated that she will re evaluate this patient at [facility] this AM then follow up with me. Family is at bedside. Addendum entered by [facility] 03/14/21 06:46: [facility] evaluated this patient yesterday and stated that patient does not meet inpatient criteria at this time. The plan for this patient is to discharge back to [facility] and [facility] to admit once returning. I will follow up with patients family, [facility] and [facility] this AM. Addendum entered by Yudelka Iniguez 03/13/21 15:06: Hospice will now be here at 3:15-3:30 to evaluate this patient. I will follow up with Hospice once evaluation is completed. Addendum entered by Yudelka Iniguez 03/13/21 13:08: [facility] will be here at 2:30 to evaluate this patient. I have informed patients family. Original Note: Per family request patient information has been faxed to [facility]. Patient currently resides at [facility] and family is interested in Hospice services. Patient information has been faxed and I will follow up once information is reviewed. I have made Dr Elliott and Alonso aware of plan.
--- NOTE | 2021-03-13 12:49 | HMH.HP ---
*Admission Date: 03/12/21 *Chief complaint: ams *History of present illness: 75-year-old female with past medical history of chronic hypoxic and hypercarbic respiratory failure, severe COPD presented to ed from [facility] facility for evaluation of alteration in mental status for the last 2 days. On saturday office received a call from [facility] stating pt is modeling to knees and up back and family [facility] and would like to place pt on morphine for comfort. order was clarified by Nurse in offce with prison. 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 pt was admitted from ed with ams and unresponsive. This am pt is unresponsive with agonal breathing. Daughter Beti was called to clarify code status and condition. states she is on her way to hospital. [facility] History I have reviewed the patient's past medical history: Yes Medical History: Reports:: Anxiety, Arrhythmia, Atrial Fibrillation, Cardiomyopathy, Congestive Heart Failure, Chronic Obstructive Pulmonary Disease (COPD), Congenital Heart Disease, Coronary Artery Disease, Deep Vein Thrombosis, Gastroesophageal Reflux Disease(GERD), Home Oxygen, Hyperlipidemia, Hypertension, MRSA, Myocardial Infarction, Palpitations, Valvular Heart Disease Denies:: Cancer, Diabetes Mellitus Type 1, Diabetes Mellitus Type 2, Internal Pacemaker, Seizures *Have you ever received a pneumonia vaccine?: Yes *Have you received a flu vaccine this season?: Yes Other Medical History: Reports: Anemia, Arthritis, Cataracts, Fibromyalgia, Hypothyroidism, Sinus Problems, Thyroid Disease Laterality Cases: Left: Arthroscopy Hip, Right: Carpal Tunnel Release Other Surgeries: Yes: Appendectomy, Cardiac Catheterization, Cholecystectomy, Colonoscopy, Hysterectomy-Total, Tubal Ligation, Other. No: Pacemaker Amputation: No Fractures: Yes - *Social History Smoking Status: Former smoker Tobacco Type: cigarettes # Packs/Day (cigarettes): 0 #Yrs smoked (if former smoker): 40 Alcohol Intake: never Substance Use Type: denies use *Occupational Status:: retired Housing: prison Household Members: other *Travel in the last 8 weeks: None - Psychiatric History Pschychiatric History:: Reports:: Anxiety Family Hx:: Unable to obtain Review of Systems - Review of Systems Review of systems:: unable to obtain Meds Home Medications Medication Instructions Recorded Confirmed Type Pilocarpine HCl [Salagen] 7.5 mg PO TID 05/24/17 03/12/21 History Pantoprazole Sodium [Protonix 40mg 40 mg PO DAILY 10/28/18 03/12/21 History tablet] guaiFENesin [Mucinex] 1,200 mg PO BID 05/25/19 03/12/21 History Acetaminophen 500 mg PO BID 08/12/20 03/12/21 History Albuterol Sulfate [Albuterol 2 puffs IH Q6HP PRN 08/12/20 03/12/21 History Sulfate Hfa] Ferrous Sulfate [Ferrous Sulfate 325 mg PO DAILY 08/12/20 03/12/21 History 325mg Tablet] Hydrocortisone 5 mg PO HS 08/21/20 03/12/21 History Montelukast Sodium [Singulair] 10 mg PO HS 08/21/20 03/12/21 History Atorvastatin Calcium [Lipitor 40mg 40 mg PO HS 10/05/20 03/12/21 History Tablet*] Lactulose [Lactulose 20gm/30ml 20 gm PO DAILYP PRN 10/12/20 03/12/21 History Oral Soln] Loratadine [Allerclear] 10 mg PO DAILY 10/12/20 03/12/21 History Trazodone HCl 100 mg PO HS 10/12/20 03/12/21 History Acetaminophen 500 mg PO Q6HP PRN 12/09/20 03/12/21 History Calcium Carbonate [Tums] 300 mg PO Q6HP PRN 12/09/20 03/12/21 History L.acidoph,Paracasei, B.lactis 1 cap PO DAILY 12/09/20 03/12/21 History [Probiotic] Trospium Chloride 20 mg PO DAILY 12/10/20 03/12/21 History guaiFENesin [Robitussin 200mg/10mL 200 mg PO Q6HP PRN 12/10/20 03/12/21 History Syrup Udc] Tiotropium [place] [Spiriva 2 inh INHALATION HS 12/30/20 03/12/21 History Respimat] Cholecalciferol (Vitamin D3) 1,000 unit PO DAILY 12/31/20 03/12/21 History [Vitamin D3 1,000 Unit Tab] Hydroxychlor
--- NOTE | 2021-03-13 15:31 | PC.NURSE ---
Pt has slept throughout this shift. Occasionally pt opens her eyes and/or moans, although speech is incomprehensible. Pt is NPO status and has received oral care Q2H. F/C is patent and draining clear, dark-yellow urine at bedside to gravity. Stage 2 ulceration noted to coccyx and covered with pressure-relief dressing. 1+ pitting edema noted to BLE. Pt has been turned/repositioned Q2H and bilateral heels have been off-loaded with a pillow. Pt is receiving O2 via NC @ 3 LPM with sats. >90%. Lung sounds reveal expiratory rhonchi and crackles. Pt is DNR status and a hospice referral has been placed. Family is at bedside. VSS. Call light within reach. Will continue to monitor.
[2021-03-14] VITALS (8 sets, daily range): BP systolic 106–143; BP diastolic 64–80; PULSE 106–122; RESP 19–20; TEMP 36.4–37.3; O2SAT 94–98; BMI 28.5
--- NOTE | 2021-03-14 04:42 | PC.NURSE ---
Patient localizes to pain. She looks in the direction of her name being said. Patient's verbal response is nonexistent to a moan. Patient is a Q2H turn and oral care. Patient has slept this shift. Patient's martinez is draining clear, yellow urine. Coarse crackles and expiratory wheezing is noted in bilateral lungs. Patient's chest port is accessed and SL. +1 pitting edema is noted in her BLE. Patient remains on 3LNC with oxygen saturation >905. VSS, call light within reach, will continue to monitor. Patient has 2 family members at bedside.
[2021-03-14 12:12] LABS: Coronavirus 19, PCR Not Detected (NotDetected); Influenza A, PCR Not Detected (NotDetected); Influenza B, PCR Not Detected (NotDetected)
--- NOTE | 2021-03-14 12:58 | HMH.DCSUM ---
General - General Admission date:: 03/12/21 Discharge date: 03/14/21 HPI HPI: 75-year-old female with past medical history of chronic hypoxic and hypercarbic respiratory failure, severe COPD presented to ed from assisted facility for evaluation of alteration in mental status for the last 2 days. On saturday office received a call from [facility] stating pt is modeling to knees and up back and family requesting to keep her at [facility] and would like to place pt on morphine for comfort. order was clarified by Nurse in offce with [facility]. 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 pt was admitted from ed with ams and unresponsive. This am pt is unresponsive with agonal breathing. Daughter Beti was called to clarify code status and condition. states she is on her way to hospital. Hospital Course Hospital Course: patient has continued to decline and family interested in comfort care - pt has been seen by hospice and will follow at community health - Objective Vital signs: Temp Pulse Resp BP Pulse Ox 98.8 F 112 H 19 106/64 L 96 03/14/21 08:00 03/14/21 10:08 03/14/21 08:00 03/14/21 08:00 03/14/21 10:08 obtunded - *Routine HEENT Exam Head: Present: normocephalic Eye: Present: EOMI, PERRL ENT: Present: mucous membranes dry - *Routine Neck Exam Absent: JVD - *Routine Respiratory Exam Present: decreased breath sounds - *Routine Cardiovascular Exam Present: RRR - *Routine Abdominal Exam Present: soft - *Routine Extremities Exam Absent: edema - *Routine Skin Exam Present: intact - *Routine Neurological Exam Present: altered mental status no posturing - Routine Psychiatric Exam Present: unable to assess Results Labs on day of discharge: Labs from last 24 hours 03/14/21 12:00 SARS-CoV-2 (PCR) Not detected Influenza A Untype (PCR) Not detected Influenza Type B (PCR) Not detected DS: Diagnosis - Discharge Diagnosis (1) Altered mental status Status: Acute (2) ANDRIA (acute kidney injury) Status: Acute (3) Decubitus ulcer of sacral region, stage 1 Status: Acute (4) Diastolic CHF Status: Acute (5) MRSA infection (methicillin-resistant Staphylococcus aureus) Status: Acute (6) Chronic respiratory failure Status: Acute (7) COPD (chronic obstructive pulmonary disease) Status: Chronic Discharge Plan - Patient Discharge Instructions ACTIVITY: Continue current activity DIET: continue same diet - Follow up Plan Disposition: er [facility] Condition at discharge:: Deteriorating Home Medications: Home Medications Medication Instructions Recorded Confirmed Type Pilocarpine HCl [Salagen] 7.5 mg PO TID 05/24/17 03/12/21 History Pantoprazole Sodium [Protonix 40mg 40 mg PO DAILY 10/28/18 03/12/21 History tablet] guaiFENesin [Mucinex] 1,200 mg PO BID 05/25/19 03/12/21 History Acetaminophen 500 mg PO BID 08/12/20 03/12/21 History Albuterol Sulfate [Albuterol 2 puffs IH Q6HP PRN 08/12/20 03/12/21 History Sulfate Hfa] Ferrous Sulfate [Ferrous Sulfate 325 mg PO DAILY 08/12/20 03/12/21 History 325mg Tablet] Hydrocortisone 5 mg PO HS 08/21/20 03/12/21 History Montelukast Sodium [Singulair] 10 mg PO HS 08/21/20 03/12/21 History Atorvastatin Calcium [Lipitor 40mg 40 mg PO HS 10/05/20 03/12/21 History Tablet*] Lactulose [Lactulose 20gm/30ml 20 gm PO DAILYP PRN 10/12/20 03/12/21 History Oral Soln] Loratadine [Allerclear] 10 mg PO DAILY 10/12/20 03/12/21 History Trazodone HCl 100 mg PO HS 10/12/20 03/12/21 History Acetaminophen 500 mg PO Q6HP PRN 12/09/20 03/12/21 History Calcium Carbonate [Tums] 300 mg PO Q6HP PRN 12/09/20 03/12/21 History L.acidoph,Paracasei, B.lactis 1 cap PO DAILY 12/09/20 03/12/21 History [Probiotic] Trospium Chloride 20 mg PO DAILY 12/10/20 03/12/21 History guaiFENesin [Robitussin 200mg/10mL 200 mg PO Q6HP P
--- NOTE | 2021-03-14 17:16 | PC.NURSE ---
Pt has slept throughout this shift. Occasionally pt opens her eyes and/or moans, although speech is incomprehensible. Pt is NPO status and has received oral care Q2H. F/C is patent and draining clear, dark-yellow urine at bedside to gravity. Stage 2 ulceration noted to coccyx and covered with pressure-relief dressing. 1+ pitting edema noted to BLE. Pt has been turned/repositioned Q2H and bilateral heels have been off-loaded with a pillow. Pt is receiving O2 via NC @ 3 LPM with sats. >90%. Lung sounds reveal expiratory rhonchi and crackles. Pt is DNR status and admitted to hospice. Comfort measures are in place. Family is at bedside. VSS. Call light within reach. Will continue to monitor.
--- NOTE | 2021-03-15 04:06 | PC.NURSE ---
pt has rested t/o most of shift, does occasionally spontaneously open eyes, has attempted to talk with family, but is hard to understand, remains on 3L NC, has been treated per MAR t/o shift, martinez draining at bedside with clear dark yellow urine present, family remains at bedside
[2021-03-15 04:43] VITALS: BMI 28.3
[2021-03-15 08:00] VITALS: BP 122/64; PULSE 121; RESP 16; TEMP 37; O2SAT 98
[2021-03-15 11:48] VITALS: RESP 16
--- NOTE | 2021-03-15 13:12 | P.PN_ITS ---
Internal Medicine - PN: Subj *Date: 03/15/21 *Time: 08:40 Interval history: family at bedside, hospice Exam Vital signs and Labs for Last 24 Hours: Temp Pulse Resp BP Pulse Ox 98.6 F 121 H 16 122/64 98 03/15/21 08:00 03/15/21 08:00 03/15/21 11:48 03/15/21 08:00 03/15/21 08:00 I & O for Last 24 hours: Intake & Output 03/13/21 03/14/21 03/15/21 03/16/21 11:59 11:59 11:59 11:59 Intake Total 250 / 250 0 / 0 Output Total 1300 / 1300 400 / 400 850 / 850 Balance -1300 / -1300 -150 / -150 -850 / -850 Weight 170 lb 6 oz 171 lb 3.2 oz 170 lb 6 oz - Constitutional no acute distress - *Routine HEENT Exam Head: Present: normocephalic Eye: Present: PERRL ENT: Present: mucous membranes moist - *Routine Neck Exam Present: supple. Absent: lymphadenopathy - *Routine Respiratory Exam Present: CTA bilaterally - *Routine Cardiovascular Exam Present: RRR - *Routine Abdominal Exam Present: soft, normoactive bowel sounds. Absent: tenderness - *Routine Extremities Exam Present: normal capillary refill. Absent: cyanosis, clubbing, edema - *Routine Skin Exam Present: warm. Absent: rash Comments: stage 2 to coccyx - *Routine Neurological Exam Present: altered mental status Assessment and Plan (1) Altered mental status Status: Acute Qualifiers: Altered mental status type: delirium Qualified Code(s): R41.0 - Disorientat ion, unspecified Category: Medical Code(s): R41.82 - Altered mental status, unspecified (2) ANDRIA (acute kidney injury) Status: Acute Category: Medical Code(s): N17.9 - Acute kidney failure, unspecified (3) Decubitus ulcer of sacral region, stage 1 Status: Acute Category: Medical Code(s): L89.151 - Pressure ulcer of sacral region, stage 1 (4) Diastolic CHF Status: Acute Category: Medical Code(s): I50.30 - Unspecified diastolic (congestive) heart failure (5) MRSA infection (methicillin-resistant Staphylococcus aureus) Status: Acute Category: Medical Code(s): A49.02 - Methicillin resistant Staphylococcus aureus infection, unspecified site (6) Chronic respiratory failure Status: Acute Category: Medical Code(s): J96.10 - Chronic respiratory failure, unspecified whether with hypoxia or hypercapnia (7) COPD (chronic obstructive pulmonary disease) Status: Chronic Qualifiers: COPD type: unspecified COPD Qualified Code(s): J44.9 - Chronic obstructive pulmonary disease, unspecified Category: Medical Code(s): J44.9 - Chronic obstructive pulmonary disease, unspecified - Assessment and plan all Dx Assessment and Plan for all problems:: rounded with dr dillon all orders per dr dillon continue hospice
--- NOTE | 2021-03-15 15:52 | DIET.NUTRFU ---
Pt in hospice care, NPO. Will monitor hospice/family wishes to meet nutritional needs as indicated/appropriate.
[2021-03-15 16:15] VITALS: RESP 20
--- NOTE | 2021-03-15 17:55 | PC.NURSE ---
Family remain @ bedside. No acute changes. Pt has slept most of shift. Meds given for comfort per MAR. No needs voiced by family @ this time.
[2021-03-15 20:00] VITALS: BP 112/58; PULSE 128; RESP 16; TEMP 36.7; O2SAT 97
[2021-03-15 20:03] VITALS: O2SAT 97
--- NOTE | 2021-03-16 04:31 | PC.NURSE ---
Family remains at bedside. Medications given per MAR for comfort. Patient has slept this shift. No needs voiced at this time by family.
[2021-03-16 04:37] VITALS: BMI 28.3
[2021-03-16 08:00] VITALS: BP 84/62; PULSE 112; RESP 17; TEMP 36.3; O2SAT 96
[2021-03-16 09:30] VITALS: RESP 20
--- NOTE | 2021-03-16 10:10 | HMH.ACPN2 ---
Internal Medicine - PN: Subj *Date: 03/16/21 *Time: 08:10 Interval history: Family at bedside. Patient is not awake. Patient does not respond not respond to commands. Patient is in hospice care. Discussed with daughters about possible transfer back to long-term care facility daughters both became upset and ask if patient could stay here related to family has been able to visit with patient. Discussed with family about plan of care. We will have hospice nurse evaluate and discuss with care management. Exam Vital signs and Labs for Last 24 Hours: Temp Pulse Resp BP Pulse Ox 97.4 F L 112 H 20 84/62 L 96 03/16/21 08:00 03/16/21 08:00 03/16/21 09:30 03/16/21 08:00 03/16/21 08:00 I & O for Last 24 hours: Intake & Output 03/13/21 03/14/21 03/15/21 03/16/21 11:59 11:59 11:59 11:59 Intake Total 250 / 250 0 / 0 Output Total 1300 / 1300 400 / 400 850 / 850 250 / 250 Balance -1300 / -1300 -150 / -150 -850 / -850 -250 / -250 Weight 170 lb 6 oz 171 lb 3.2 oz 170 lb 6 oz 170 lb 6 oz - Constitutional no acute distress, chronically ill appearing - *Routine HEENT Exam Head: Present: normocephalic Eye: Present: PERRL ENT: Present: mucous membranes moist - *Routine Neck Exam Present: supple. Absent: lymphadenopathy - *Routine Respiratory Exam Present: rhonchi - *Routine Cardiovascular Exam Present: RRR - *Routine Abdominal Exam Present: soft, normoactive bowel sounds. Absent: tenderness - *Routine Extremities Exam Absent: cyanosis, clubbing, edema - *Routine Skin Exam Absent: rash Comments: cool to touch - *Routine Neurological Exam Patient is nonresponsive. Assessment and Plan (1) Altered mental status Status: Acute Qualifiers: Altered mental status type: delirium Qualified Code(s): R41.0 - Disorientation, unspecified Category: Medical Code(s): R41.82 - Altered mental status, unspecified (2) ANDRIA (acute kidney injury) Status: Acute Category: Medical Code(s): N17.9 - Acute kidney failure, unspecified (3) Decubitus ulcer of sacral region, stage 1 Status: Acute Category: Medical Code(s): L89.151 - Pressure ulcer of sacral region, stage 1 (4) Diastolic CHF Status: Acute Category: Medical Code(s): I50.30 - Unspecified diastolic (congestive) heart failure (5) MRSA infection (methicillin-resistant Staphylococcus aureus) Status: Acute Category: Medical Code(s): A49.02 - Methicillin resistant Staphylococcus aureus infection, unspecified site (6) Chronic respiratory failure Status: Acute Category: Medical Code(s): J96.10 - Chronic respiratory failure, unspecified whether with hypoxia or hypercapnia (7) COPD (chronic obstructive pulmonary disease) Status: Chronic Qualifiers: COPD type: unspecified COPD Qualified Code(s): J44.9 - Chronic obstructive pulmonary disease, unspecified Category: Medical Code(s): J44.9 - Chronic obstructive pulmonary disease, unspecified (8) Hospice care patient Status: Acute Category: Medical Code(s): Z51.5 - Encounter for palliative care comfort care only - Assessment and plan all Dx Assessment and Plan for all problems:: Rounded with Dr. Elliott all orders per Dr. Elliott Hospice nurse seen today
--- NOTE | 2021-03-16 10:33 | PC.NURSE ---
YENNIFER Gutierrez RN (hospice) at bedside
[2021-03-16 13:51] VITALS: RESP 38
--- NOTE | 2021-03-16 15:40 | PC.NURSE ---
Remains inpatient hopsice. Family present @ bedside throughout shift. Pt's breathing pattern noted to have changed, much more labored than yesterday. PRN meds have been given more frequently to keep pt comfortably. She is currently resting. No needs voiced by family @ this time. Oral care provided Q2H/prn. Turning and repositioning and family will allow.
--- NOTE | 2021-03-16 18:28 | PC.NURSE ---
Pt bathed and linens changed. Hayes care performed. Oral care provided. Heels floating. Arms elevated on pillows.
--- NOTE | 2021-03-16 18:58 | PC.NURSE ---
Family called out @ 1851 requesting nurse @ bedside. Nurse entered room and found pt not breathing, no pulse noted. Both daughters @ bedside. MD government contracts manager notified @ 185. Dr. Arshad request ED MD to pronounce.
--- NOTE | 2021-03-16 19:05 | HMH.DEATH ---
Pronouncement Note - Date and Time of Date of : 03/16/21 Time of : 19:00 - PCOD Preliminary cause of : Cardiac arrest - Additional Data Confirmation of : no pulse, no respirations, no heart sounds, pupils fixed and dilated Family: at bedside Attending/PCP notified?: Yes (at shift change) Attending physician: Luis Hanson MD Was code activated?: No Autopsy requested?: No shot examiner notified?: No Organ bank notified?: No (per nursing) Advance directives: Yes (per nursing)
--- NOTE | 2021-03-16 19:14 | PC.NURSE ---
Addendum entered by Maricarmen Portillo RN 03/16/21 19:31: Spoke w/ Frances York with [facility] Case # [id number] Original Note: [facility] contacted @ this time.
--- NOTE | 2021-03-16 21:36 | PC.NURSE ---
This RN was notified by prior shift nurse that pt was . [facility] was contacted by prior nurse. This RN updated Hospice on pt status. Port was deaccessed and pt was bathed. [facility] was contacted per family request Pt belongings given to daughter, Elizabeth Alford (POA) Pt was taken off of floor at 2110.
--- NOTE | 2021-03-17 09:58 | HMH.DCSUM ---
General - General Admission date:: 03/12/21 Discharge date: 03/16/21 HPI HPI: 75-year-old female with past medical history of chronic hypoxic and hypercarbic respiratory failure, severe COPD presented to ed from [facility] facility for evaluation of alteration in mental status for the last 2 days. On saturday office received a call from [facility] stating pt is modeling to knees and up back and family requesting to keep her at [facility] and would like to place pt on morphine for comfort. order was clarified by Nurse in offce with [facility]. 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 pt was admitted from ed with ams and unresponsive. This am pt is unresponsive with agonal breathing. Daughter Beti was called to clarify code status and condition. states she is on her way to hospital. Hospital Course Hospital Course: Laboratory Tests 03/12/21 03/12/21 03/12/21 12:03 12:03 12:07 WBC 11.3 H RBC 3.86 L Hgb 11.6 L Hct 36.6 L MCV 94.7 MCH 29.9 MCHC 31.6 L RDW 14.8 Plt Count 419 D MPV 8.3 Neut % (Auto) 78.8 Lymph % (Auto) 9.8 L [place] % (Auto) 6.2 Eos % (Auto) 4.4 Baso % (Auto) 0.8 Neut # (Auto) 8.9 H Lymph # (Auto) 1.1 [place] # (Auto) 0.7 Eos # (Auto) 0.5 H Baso # (Auto) 0.1 Specimen Source O2 % ABG pH ABG pCO2 ABG pO2 ABG HCO3 ABG Total CO2 ABG O2 Saturation ABG Base Excess Carlos Test ABG Lactate VBG pH 7.38 VBG pCO2 41.2 VBG pO2 112.9 H VBG HCO3 23.6 VBG Total CO2 24.9 VBG O2 Saturation 98.1 H VBG Base Excess -1.6 Sodium 139 Potassium 4.7 Chloride 100 Carbon Dioxide 25 Anion Gap 18.7 H BUN 44 H Creatinine 1.60 H Estimated Creat Clear 38 Estimated GFR 32 L Est GFR ( Amer) 38 L Glucose 94 Calcium 9.0 Total Bilirubin 0.5 AST 32 ALT 18 Alkaline Phosphatase 85 Total Protein 6.9 D Albumin 3.2 L Globulin 3.7 H Albumin/Globulin Ratio 0.9 L Urine Color Urine Appearance Urine pH Ur Specific [place] Urine Protein Urine Glucose (UA) Urine Ketones Urine Blood Urine Nitrate Urine Bilirubin Urine Urobilinogen Ur Leukocyte Esterase Urine RBC Urine WBC Ur Squamous Epith Cells Urine Bacteria SARS-CoV-2 (PCR) Influenza A Untype (PCR) Influenza Type B (PCR) 03/12/21 03/12/21 03/13/21 16:25 16:25 09:16 WBC RBC Hgb Hct MCV MCH MCHC RDW Plt Count MPV Neut % (Auto) Lymph % (Auto) [place] % (Auto) Eos % (Auto) Baso % (Auto) Neut # (Auto) Lymph # (Auto) [place] # (Auto) Eos # (Auto) Baso # (Auto) Specimen Source Right radial O2 % 3 ABG pH 7.41 ABG pCO2 35.0 ABG pO2 103.2 H ABG HCO3 21.5 L ABG Total CO2 22.6 L ABG O2 Saturation 98 ABG Base Excess -3.1 L Carlos Test acceptable ABG Lactate 1.2 VBG pH VBG pCO2 VBG pO2 VBG HCO3 VBG Total CO2 VBG O2 Saturation VBG Base Excess Sodium Potassium Chloride Carbon Dioxide Anion Gap BUN Creatinine Estimated Creat Clear Estimated GFR Est GFR ( Amer) Glucose Calcium Total Bilirubin AST ALT Alkaline Phosphatase Total Protein Albumin Globulin Albumin/Globulin Ratio Urine Color Yellow Urine Appearance Clear Urine pH 6.0 Ur Specific [place] >= 1.030 Urine Protein 2+ Urine Glucose (UA) Negative Urine Ketones 1+ Urine Blood 2+ Urine Nitrate Negative Urine Bilirubin Negative Urine Urobilinogen 0.2 Ur Leukocyte Esterase Trace Urine RBC 5-10 Urine WBC 5-10 Ur Squamous Epith Cells None Urine Bacteria 1+ SARS-CoV-2 (PCR) Not detected Influenza A Untype (PCR) Not detected Influe
== END 2021-03-16 21:11 | disposition expired ==
LOC: ER 13:46 → 2ND 16:46
PROVIDERS: Admitting Provider Family Medicine; Emergency Provider Student in an Organized Health Care Education/Training Program; PCP Emergency Medicine; Visit Provider Emergency Medicine
DX: I46.9 Cardiac arrest, cause unspecified (principal); J96.11 Chronic respiratory failure with hypoxia; J96.12 Chronic respiratory failure with hypercapnia; Z20.822 Contact with and (suspected) exposure to COVID-19; J44.9 Chronic obstructive pulmonary disease, unspecified; I11.0 Hypertensive heart disease with heart failure; I50.31 Acute diastolic (congestive) heart failure; I48.91 Unspecified atrial fibrillation; Z99.81 Dependence on supplemental oxygen; I42.9 Cardiomyopathy, unspecified; Z79.899 Other long term (current) drug therapy; Z88.2 Allergy status to sulfonamides; Z88.8 Allergy status to other drugs, medicaments and biological substances; N17.9 Acute kidney failure, unspecified; L89.152 Pressure ulcer of sacral region, stage 2; Z51.5 Encounter for palliative care; R41.82 Altered mental status, unspecified; Z87.891 Personal history of nicotine dependence
CPT/HCPCS: 70450; 71045; 80053; 81001; 82803; 83605; 85025; 94640; 94760; 94761; 96365; 99284; C9803; G0378; U0003; U0005